=== PATIENT | male | born 1950 | race Caucasian/White ===

== ENCOUNTER 2017-11-08 09:52 | Day surgery (SDC) | payer MEDICARE, OTHER, SELFPAY ==
--- NOTE | 2017-11-08 | PATH_ITS ---
[facility] Accession Number: [id number] . 01 Material submitted: . LEFT COLON POLYP . 02 Diagnosis: Left Colon, Polyp, Biopsy: Tubulovillous adenoma. No evidence of malignancy or high-grade dysplasia. MRV/11/09/2017 . 02 Electronically signed: . Mecca Menon MD, Pathologist NPI- [id number] . 01 Gross description: . Received in one formalin-filled container labeled with the patient's name and labeled left colon polyp, are four less than 0.1 cm to 0.2 cm portions of tissue, entirely submitted in one cassette. ([id number]) /FRR . 02 Pathologist provided ICD-10: D12.6 . 02 CPT . 524798 Performed at: 01 [facility] [address] [id number] MD Clayton Fitzpatrick MD Phone: [phone] Performed at: 02 [facility] [id number] [place] [id number] MD Casey Hollins MD Phone: [phone]
[2017-11-08 10:29] VITALS: BMI 26.4
[2017-11-08 10:44] VITALS: BP 152/94; PULSE 71; RESP 16; TEMP 36.8; O2SAT 98
[2017-11-08] MEDS: SODIUM CHLORIDE 0.9% 1,000 ML 21 ML IV (10:48)
[2017-11-08] MEDS: fentaNYL 250 MCG/5 ML INJ IV (11:59)
[2017-11-08] MEDS: MIDAZOLAM 5 MG/5 ML VIAL IV (12:00)
--- NOTE | 2017-11-08 12:00 | PM.OP.ENDO ---
Operative Date/Time/Diagnoses Date of procedure: 11/08/17 Time of procedure: 12:00 Pre-op diagnosis: See indication Procedure & Clinicians Indications: Screening Surgeon: Deniz Cristobal Procedure Notes Procedure in detail: After informed consent was obtained the patient was placed in the left lateral decubitus position. The video colonoscope was introduced the rectum and slowly advanced to cecum. On slow withdrawal mucosa was carefully examined. The scope was removed. The patient tolerated the procedure well. Blood loss none Complications none Sedation Versed 6 mg, fentanyl 100 mcg IV titration sedation Total sedation time 15 min Findings 1. Extensive diverticulosis including on the right side though patchy in the mid portions of the colon. 2. Two sessile polyps seen in the left colon. There were 5-6 mm in size. Snare was used to resect both but the more proximal was lost in the colon. 3. Otherwise negative colonoscopy to cecum We will be in touch with patient regarding pathology but will need follow-up colonoscopy in 5 years.
[2017-11-08 12:17] VITALS: BP 156/89; PULSE 65; RESP 16; TEMP 36.8; O2SAT 94
--- NOTE | 2017-11-29 16:45 | PM.HP.1 ---
History of Present Illness Date Patient Seen: 11/08/17 Time Patient Seen: 07:45 Chief complaint: colonoscopy [id number] Narrative: Screening Patient History Medical History Hyperlipidemia (Acute) Osteoarthritis (Acute) Meds Home Medications Medication Instructions Recorded Confirmed Type amlodipine 5 mg PO DAILY 11/08/17 11/08/17 History atorvastatin [Lipitor] 40 mg PO DAILY 11/08/17 11/08/17 History dextroamphetamine 10 mg PO DAILY 11/08/17 11/08/17 History losartan 50 mg PO DAILY 11/08/17 11/08/17 History meloxicam 15 mg PO DAILY 11/08/17 11/08/17 History methotrexate sodium 15 mg PO QWEEK 11/08/17 11/08/17 History Allergies Allergy/AdvReac Type Severity Reaction Status Date / Time No Known Drug Allergies Allergy Verified 11/08/17 10:23 Exam Vital Signs (past 8 hours): Oxygen Delivery Method Room Air Narrative Exam Narrative: Oropharynx free of lesion Chest: Auscultation percussion Cardiac exam reveals no S3 or murmur Assessment & Plan Plan: Assessment/Plan Narrative: Plan is to perform colonoscopy. Risks, benefits, alternatives have been explained.
== END 2017-11-08 12:28 | disposition home or self-care (01) ==
PROVIDERS: Family Provider Internal Medicine; PCP Internal Medicine; Visit Provider Internal Medicine Gastroenterology
PROC: 0DJD8ZZ Inspection of Lower Intestinal Tract, Via Natural or Artificial Opening Endoscopic (ICD-10-PCS; CPT 45378; principal; 2017-11-08 11:00)
DX: Z12.11 Encounter for screening for malignant neoplasm of colon (principal); K57.30 Diverticulosis of large intestine without perforation or abscess without bleeding; D12.4 Benign neoplasm of descending colon
CPT/HCPCS: 45385; 88305; J2250; J3010

== ENCOUNTER → 2018-04-10 11:43 | Outpatient (CLI) | payer MEDICARE, OTHER, SELFPAY ==
[2018-04-10 12:39] LABS: Add Manual Diff / Slide Review NO; Basophils Percent Auto 0.2 % (0-2); Eosinophils Percent Auto 0.1 % (2-4); Hematocrit 47.8 % (41-53); Hemoglobin 16.1 g/dL (13.5-17.5); Lymphocytes Percent Auto 9.4 % (25-40); Mean Corpuscular HGB Conc 33.6 % (30-36); Mean Corpuscular Hemoglobin 28.8 PG (26-34); Mean Corpuscular Volume 85.8 fL (80-100); Monocytes Percent Auto 3.1 % (3-14); Neutrophils Absolute Auto 7700 /uL (1500-7000); Neutrophils Percent Auto 87.2 % (50-75); Platelet Count 209 X10^3/uL (150-400); Red Blood Cell Count 5.58 X10^6/uL (4.5-5.9); Red Cell Distribution Width 14.2 % (11.6-14.8); White Blood Cell Count 8.8 X10^3/uL (4.5-11.0)
[2018-04-10 12:54] LABS: Alanine Aminotransferase 50 IU/L (21-72); Albumin 4.9 g/dL (3.5-5.0); Alkaline Phosphatase 70 U/L (38-126); Aspartate Aminotransferase 32 IU/L (17-59); Bilirubin Total 0.9 mg/dL (0.2-1.3); Blood Urea Nitrogen 20 mg/dL (9-20); Carbon Dioxide 25 mmol/L (22-32); Chloride 102 mmol/L (98-107); Estimated Glomerular Filt Rate > 60.0 mL/min (>60); Glucose 124 mg/dL (80-110); HEMOLYSIS < 15 (0-50); Potassium 4.7 mmol/L (3.4-5.1); Sodium 140 mmol/L (137-145)
[2018-04-10 12:56] LABS: Albumin Globulin Ratio 1.6 (1.0-2.8); Globulin 3.1 g/dL (1.7-4.1)
== END ==
PROVIDERS: Family Provider Internal Medicine; PCP Internal Medicine; Visit Provider Physician Assistant
DX: L40.0 Psoriasis vulgaris (principal)
CPT/HCPCS: 36415; 80053; 85025

== ENCOUNTER → 2018-10-09 11:15 | Outpatient (CLI) | payer MEDICARE, OTHER, SELFPAY ==
[2018-10-09 12:30] LABS: Add Manual Diff / Slide Review NO; Basophils Absolute Auto 0 /uL (0-100); Basophils Percent Auto 0.8 % (0-2); Eosinophils Absolute Auto 300 /uL (0-450); Eosinophils Percent Auto 4.8 % (2-4); Hematocrit 44.1 % (41-53); Hemoglobin 14.7 g/dL (13.5-17.5); Lymphocytes Absolute Auto 1600 /uL (1100-4500); Lymphocytes Percent Auto 27.3 % (25-40); Mean Corpuscular HGB Conc 33.3 % (30-36); Mean Corpuscular Hemoglobin 28.3 PG (26-34); Monocytes Absolute Auto 600 /uL (0-900); Monocytes Percent Auto 10.4 % (3-14); Neutrophils Absolute Auto 3200 /uL (1500-7000); Neutrophils Percent Auto 56.7 % (50-75); Platelet Count 217 X10^3/uL (150-400); Red Blood Cell Count 5.19 X10^6/uL (4.5-5.9); Red Cell Distribution Width 14.7 % (11.6-14.8); White Blood Cell Count 5.7 X10^3/uL (4.5-11.0)
[2018-10-09 12:42] LABS: Alanine Aminotransferase 42 IU/L (21-72); Albumin 4.4 g/dL (3.5-5.0); Albumin Globulin Ratio 1.7 (1.0-2.8); Alkaline Phosphatase 69 U/L (38-126); Aspartate Aminotransferase 31 IU/L (17-59); BUN Creatinine Ratio 23.3 (6-22); Bilirubin Total 0.9 mg/dL (0.2-1.3); Blood Urea Nitrogen 21 mg/dL (9-20); Calcium 10.1 mg/dL (8.4-10.2); Carbon Dioxide 27 mmol/L (22-32); Chloride 105 mmol/L (98-107); Estimated Glomerular Filt Rate > 60.0 mL/min (>60); Globulin 2.6 g/dL (1.7-4.1); Glucose 87 mg/dL (80-110); HEMOLYSIS < 15 (0-50); Potassium 4.6 mmol/L (3.4-5.1); Sodium 142 mmol/L (137-145)
== END ==
PROVIDERS: PCP Internal Medicine; Visit Provider Physician Assistant
DX: L40.0 Psoriasis vulgaris (principal)
CPT/HCPCS: 36415; 80053; 85025

== ENCOUNTER → 2018-12-06 11:26 | Outpatient (CLI) | payer MEDICARE, OTHER, SELFPAY ==
[2018-12-06 12:31] LABS: HEMOLYSIS < 15 (0-50); Sodium 141 mmol/L (137-145)
[2018-12-06 12:33] LABS: Aspartate Aminotransferase 34 IU/L (17-59); BUN Creatinine Ratio 21.1 (6-22); Blood Urea Nitrogen 19 mg/dL (9-20); Calcium 10.3 mg/dL (8.4-10.2); Carbon Dioxide 29 mmol/L (22-32); Chloride 101 mmol/L (98-107); Cholesterol 152 mg/dL (140-199); Estimated Glomerular Filt Rate > 60.0 mL/min (>60); Glucose 92 mg/dL (80-110); HDL Cholesterol 58 mg/dL (40-60); LDL Cholesterol Calculated 76 mg/dL (<100); Potassium 4.1 mmol/L (3.4-5.1); Triglycerides 90 mg/dL (35-150)
== END ==
PROVIDERS: PCP Internal Medicine; Visit Provider Internal Medicine
DX: I10 Essential (primary) hypertension (principal); E78.2 Mixed hyperlipidemia
CPT/HCPCS: 36415; 80048; 80061; 84450

== ENCOUNTER → 2019-03-28 14:09 | Outpatient (CLI) | payer MEDICARE, OTHER, SELFPAY ==
[2019-03-28 14:37] LABS: Add Manual Diff / Slide Review NO; Basophils Absolute Auto 100 /uL (0-100); Basophils Percent Auto 0.9 % (0-2); Eosinophils Absolute Auto 200 /uL (0-450); Eosinophils Percent Auto 3.4 % (2-4); Hematocrit 44.7 % (41-53); Lymphocytes Absolute Auto 1400 /uL (1100-4500); Lymphocytes Percent Auto 22.2 % (25-40); Mean Corpuscular HGB Conc 33.6 % (30-36); Mean Corpuscular Hemoglobin 28.4 PG (26-34); Mean Corpuscular Volume 84.3 fL (80-100); Monocytes Absolute Auto 500 /uL (0-900); Monocytes Percent Auto 7.3 % (3-14); Neutrophils Absolute Auto 4200 /uL (1500-7000); Neutrophils Percent Auto 66.2 % (50-75); Platelet Count 203 X10^3/uL (150-400); Red Cell Distribution Width 15.6 % (11.6-14.8); White Blood Cell Count 6.3 X10^3/uL (4.5-11.0)
[2019-03-28 15:20] LABS: Alanine Aminotransferase 39 IU/L (<50); Albumin 4.6 g/dL (3.5-5.0); Albumin Globulin Ratio 1.7 (1.0-2.8); Alkaline Phosphatase 77 U/L (38-126); Aspartate Aminotransferase 37 IU/L (17-59); Blood Urea Nitrogen 20 mg/dL (9-20); Calcium 10.3 mg/dL (8.4-10.2); Carbon Dioxide 26 mmol/L (22-32); Chloride 104 mmol/L (98-107); Estimated Glomerular Filt Rate > 60.0 mL/min (>60); Globulin 2.7 g/dL (1.7-4.1); Glucose 86 mg/dL (80-110); HEMOLYSIS < 15 (0-50); Potassium 4.3 mmol/L (3.4-5.1); Sodium 139 mmol/L (137-145); Total Protein 7.3 g/dL (6.3-8.2)
[2019-03-31 12:13] LABS: Mitogen-NIL > 10.00 IU/mL; NIL 0.03 IU/mL; QuantiFERON TB NEGATIVE (Negative); TB1-NIL < 0.01 IU/mL; TB2-NIL < 0.01 IU/mL
== END ==
PROVIDERS: PCP Internal Medicine; Visit Provider Physician Assistant
DX: L40.0 Psoriasis vulgaris (principal)
CPT/HCPCS: 36415; 80053; 85025; 86480

== ENCOUNTER → 2019-06-12 17:08 | Outpatient (ROUT) | payer MEDICARE, OTHER, SELFPAY ==
[2019-06-12 18:10] LABS: Aspartate Aminotransferase 30 IU/L (17-59); BUN Creatinine Ratio 21.8 (6-22); Blood Urea Nitrogen 19 mg/dL (9-20); Carbon Dioxide 28 mmol/L (22-32); Chloride 105 mmol/L (98-107); Cholesterol 167 mg/dL (140-199); Estimated Glomerular Filt Rate > 60.0 mL/min (>60); Glucose 100 mg/dL (80-110); HDL Cholesterol 61 mg/dL (40-60); HEMOLYSIS < 15 (0-50); LDL Cholesterol Calculated 87 mg/dL (<100); Potassium 4.4 mmol/L (3.4-5.1); Sodium 141 mmol/L (137-145); Triglycerides 96 mg/dL (35-150)
[2019-06-12 18:40] LABS: Prostate Specific Antigen 1.75 ng/mL (0.10-4.00)
== END ==
PROVIDERS: PCP Internal Medicine; Visit Provider Internal Medicine
DX: E78.2 Mixed hyperlipidemia (principal); I10 Essential (primary) hypertension; N40.1 Benign prostatic hyperplasia with lower urinary tract symptoms
CPT/HCPCS: 80048; 80061; 84153; 84450

== ENCOUNTER → 2019-12-19 12:52 | Outpatient (CLI) | payer MEDICARE, OTHER, SELFPAY ==
[2019-12-19 14:05] LABS: Add Manual Diff / Slide Review NO; Basophils Absolute Auto 100 /uL (0-100); Basophils Percent Auto 0.8 % (0-2); Eosinophils Absolute Auto 200 /uL (0-450); Eosinophils Percent Auto 2.8 % (2-4); Hematocrit 43.1 % (41-53); Hemoglobin 14.3 g/dL (13.5-17.5); Lymphocytes Absolute Auto 1400 /uL (1100-4500); Lymphocytes Percent Auto 21.8 % (25-40); Mean Corpuscular HGB Conc 33.2 % (30-36); Mean Corpuscular Hemoglobin 28.5 PG (26-34); Mean Corpuscular Volume 85.9 fL (80-100); Monocytes Absolute Auto 500 /uL (0-900); Monocytes Percent Auto 8.2 % (3-14); Neutrophils Absolute Auto 4400 /uL (1500-7000); Neutrophils Percent Auto 66.4 % (50-75); Platelet Count 234 X10^3/uL (150-400); Red Blood Cell Count 5.02 X10^6/uL (4.5-5.9); Red Cell Distribution Width 15.3 % (11.6-14.8); White Blood Cell Count 6.6 X10^3/uL (4.5-11.0)
[2019-12-19 15:56] LABS: Alanine Aminotransferase 27 IU/L (<50); Albumin Globulin Ratio 1.4 (1.0-2.8); Alkaline Phosphatase 96 U/L (38-126); Aspartate Aminotransferase 29 IU/L (17-59); BUN Creatinine Ratio 18.4 (6-22); Bilirubin Unconjugated 0.6 mg/dL (0.0-1.1); Blood Urea Nitrogen 16 mg/dL (9-20); Calcium 9.6 mg/dL (8.4-10.2); Carbon Dioxide 28 mmol/L (22-32); Chloride 103 mmol/L (98-107); Estimated Glomerular Filt Rate > 60.0 mL/min (>60); Globulin 2.9 g/dL (1.7-4.1); Glucose 88 mg/dL (80-110); HEMOLYSIS < 15 (0-50); Potassium 4.2 mmol/L (3.4-5.1); Sodium 139 mmol/L (137-145); Total Protein 6.9 g/dL (6.3-8.2)
== END ==
PROVIDERS: PCP Internal Medicine; Referring Provider Physician Assistant; Visit Provider Physician Assistant
DX: L40.0 Psoriasis vulgaris (principal)
CPT/HCPCS: 36415; 80053; 80076; 85025

== ENCOUNTER → 2020-01-17 12:37 | Outpatient (CLI) | payer MEDICARE, OTHER, SELFPAY ==
--- NOTE | 2020-01-17 | DI.MRI.S_ITS ---
PROCEDURE: MR LUMBAR SPINE WO CON INDICATIONS: Low back pain TECHNIQUE: Noncontrast sagittal T1 spin echo and T2 fast echo, coronal T2, sagittal STIR, axial T1 and T2 fast spin echo through the lumbar spine. COMPARISON: [facility], CR, XR LUMBAR SPINE 2 OR 3VW, 10/06/2015, 15:43. FINDINGS: Image quality: Excellent. Alignment and Curvature: 5 lumbar type vertebral bodies are present by plain film. There is loss of normal lumbar lordosis. Mild grade 1 retrolisthesis of L1 on L2, L2 on L3, L4 on L5, and L5 on S1. Mild rightward curvature of the mid lumbar spine. Bone Marrow: Marrow is of normal overall signal. No acute vertebral body compression fractures. Moderate reactive signal within the endplates adjacent to the L2-L3 and L4-L5 intervertebral discs. Mild reactive signal within the endplates adjacent to the L1-L2, L3-L4, and L5-S1 intervertebral discs, as well as the intervertebral discs of the lower thoracic spine. L3-L4 laminectomy. Spinal Cord: Conus medullaris terminates at the L1-L2 disc space level. Visualized cord demonstrates normal signal and size. Paraspinous Soft Tissues: No paravertebral masses. L1-L2: Congenital canal stenosis. Severe disc height loss and desiccation. Mild diffuse disc bulge. Mild facet and ligamentum flavum hypertrophy. Moderate canal stenosis. Mild right and moderate left subarticular foraminal stenosis. L2-L3: Congenital canal stenosis. Severe disc height loss and desiccation. Moderate diffuse disc bulge/osteophyte. Moderate facet hypertrophy. Severe canal stenosis. Moderate foraminal stenosis bilaterally. L3-L4: Congenital canal stenosis. Severe disc height loss and desiccation. Mild diffuse disc bulge/osteophyte. Moderate facet hypertrophy and mild ligamentum flavum hypertrophy bilaterally. Epidural lipomatosis. Severe canal stenosis. Moderate bilateral foraminal stenosis. L4-L5: Congenital canal stenosis. Severe disc height loss and desiccation. Moderate diffuse disc bulge/osteophyte. Moderate facet and ligamentum flavum hypertrophy. Severe canal stenosis. Moderate bilateral foraminal stenosis. L5-S1: Severe disc height loss and desiccation. Mild facet and ligamentum flavum hypertrophy. Mild diffuse disc bulge with superimposed left greater than right far lateral protrusions. Mild ligamentum flavum hypertrophy. Mild canal stenosis. Severe bilateral foraminal stenosis with bilateral L5 nerve root compression. IMPRESSION: 1. Postsurgical sequelae. 2. Diffuse congenital canal stenosis with superimposed multilevel degenerative disc and facet disease, as well as ligamentum flavum hypertrophy and epidural lipomatosis. 3. Multilevel canal stenosis, worst at L2-L3, L3-L4, and L4-L5, where there are severe canal stenosis. 4. Multilevel foraminal stenosis, worst at L5-S1 where there is associated L5 nerve root compression. Dictated by: Regan Amin M.D. on 01/17/2020 at 13:57 Approved by: Regan Amin M.D. on 01/17/2020 at 14:06
== END ==
PROVIDERS: PCP Internal Medicine; Referring Provider Orthopaedic Surgery; Visit Provider Orthopaedic Surgery
DX: M54.5 Low back pain (principal); M48.061 Spinal stenosis, lumbar region without neurogenic claudication; M48.07 Spinal stenosis, lumbosacral region; M51.36 Other intervertebral disc degeneration, lumbar region; M51.37 Other intervertebral disc degeneration, lumbosacral region; E88.2 Lipomatosis, not elsewhere classified
CPT/HCPCS: 72148

== ENCOUNTER → 2020-03-03 13:26 | Outpatient (CLI) | payer MEDICARE, OTHER, SELFPAY ==
[2020-03-03 13:36] LABS: WBC Urine None Seen (0-5/HPF)
[2020-03-03 14:56] LABS: Add Manual Diff / Slide Review NO; Basophils Absolute Auto 100 /uL (0-100); Basophils Percent Auto 0.8 % (0-2); Eosinophils Absolute Auto 200 /uL (0-450); Eosinophils Percent Auto 2.1 % (2-4); Hematocrit 43.6 % (41-53); Hemoglobin 14.2 g/dL (13.5-17.5); Lymphocytes Absolute Auto 1400 /uL (1100-4500); Lymphocytes Percent Auto 16.5 % (25-40); Mean Corpuscular HGB Conc 32.6 % (30-36); Mean Corpuscular Hemoglobin 28.4 PG (26-34); Monocytes Absolute Auto 700 /uL (0-900); Monocytes Percent Auto 8.7 % (3-14); Neutrophils Absolute Auto 5900 /uL (1500-7000); Neutrophils Percent Auto 71.9 % (50-75); Platelet Count 237 X10^3/uL (150-400); Red Blood Cell Count 5.01 X10^6/uL (4.5-5.9); Red Cell Distribution Width 14.3 % (11.6-14.8); White Blood Cell Count 8.2 X10^3/uL (4.5-11.0)
[2020-03-03 15:56] LABS: Appearance Urine UA CLEAR; Bilirubin Urine UA NEGATIVE (NEGATIVE); Color Urine UA YELLOW; Glucose Urine UA NEGATIVE (Negative); Ketones Urine UA NEGATIVE (NEGATIVE); Leukocyte Esterase Urine UA NEGATIVE (NEGATIVE); Nitrite Urine UA NEGATIVE (Negative); Occult Blood Urine UA NEGATIVE (Negative); Protein Urine UA NEGATIVE (Negative); Specific Gravity Urine UA 1.025 (1.000-1.035); Urobilinogen Urine UA 0.2 E.U./dL (0.2)
[2020-03-03 16:00] LABS: BUN Creatinine Ratio 19.7 (6-22); Blood Urea Nitrogen 15 mg/dL (9-20); Calcium 9.3 mg/dL (8.4-10.2); Carbon Dioxide 29 mmol/L (22-32); Chloride 104 mmol/L (98-107); Estimated Glomerular Filt Rate > 60.0 mL/min (>60); Glucose 87 mg/dL (80-110); HEMOLYSIS < 15 (0-50); Potassium 4.4 mmol/L (3.4-5.1); Sodium 139 mmol/L (137-145)
[2020-03-03 17:17] LABS: Bacteria Urine Occasional (0-1); Culture Indicated Urine Cult Not Indicated; RBC Urine 0-1/HPF (0-5/HPF)
== END ==
PROVIDERS: PCP Internal Medicine; Referring Provider Orthopaedic Surgery Orthopaedic Surgery of the Spine; Visit Provider Orthopaedic Surgery Orthopaedic Surgery of the Spine
DX: Z01.812 Encounter for preprocedural laboratory examination (principal); N39.0 Urinary tract infection, site not specified
CPT/HCPCS: 36415; 80048; 81001; 85025

== ENCOUNTER → 2020-03-11 13:24 | Outpatient (CLI) | payer MEDICARE, OTHER, SELFPAY ==
[2020-03-11 16:12] LABS: COVID19 -Nasal RAPID Negative (Negative)
== END ==
PROVIDERS: PCP Internal Medicine; Visit Provider Physician Assistant
DX: Z11.59 Encounter for screening for other viral diseases (principal)
CPT/HCPCS: 87635

== ENCOUNTER → 2020-03-30 12:35 | Outpatient (CLI) | payer MEDICARE, OTHER, SELFPAY ==
[2020-03-30 14:24] LABS: Add Manual Diff / Slide Review NO; Basophils Absolute Auto 0 /uL (0-100); Basophils Percent Auto 0.6 % (0-2); Eosinophils Absolute Auto 200 /uL (0-450); Eosinophils Percent Auto 3.1 % (2-4); Hematocrit 44.7 % (41-53); Hemoglobin 14.5 g/dL (13.5-17.5); Lymphocytes Absolute Auto 1600 /uL (1100-4500); Lymphocytes Percent Auto 21.9 % (25-40); Mean Corpuscular HGB Conc 32.4 % (30-36); Mean Corpuscular Hemoglobin 27.9 PG (26-34); Mean Corpuscular Volume 85.9 fL (80-100); Monocytes Absolute Auto 700 /uL (0-900); Monocytes Percent Auto 8.9 % (3-14); Neutrophils Absolute Auto 4900 /uL (1500-7000); Neutrophils Percent Auto 65.5 % (50-75); Platelet Count 258 X10^3/uL (150-400); Red Cell Distribution Width 14.3 % (11.6-14.8); White Blood Cell Count 7.4 X10^3/uL (4.5-11.0)
[2020-03-30 14:37] LABS: Alanine Aminotransferase 24 IU/L (<50); Albumin 4.6 g/dL (3.5-5.0); Albumin Globulin Ratio 1.5 (1.0-2.8); Alkaline Phosphatase 81 U/L (38-126); Aspartate Aminotransferase 27 IU/L (17-59); Bilirubin Total 0.5 mg/dL (0.2-1.3); Bilirubin Unconjugated 0.4 mg/dL (0.0-1.1); Globulin 3.1 g/dL (1.7-4.1); HEMOLYSIS < 15 (0-50); Total Protein 7.7 g/dL (6.3-8.2)
== END ==
PROVIDERS: PCP Internal Medicine; Referring Provider Physician Assistant; Visit Provider Physician Assistant
DX: L40.0 Psoriasis vulgaris (principal)
CPT/HCPCS: 36415; 80076; 85025

== ENCOUNTER → 2020-04-20 11:05 | Outpatient (CLI) | payer MEDICARE, OTHER, SELFPAY ==
[2020-04-20 12:27] LABS: COVID19 -Nasal RAPID Negative (Negative)
== END ==
PROVIDERS: PCP Internal Medicine; Visit Provider Physician Assistant
DX: Z20.822 Contact with and (suspected) exposure to COVID-19 (principal)
CPT/HCPCS: 87635

== ENCOUNTER 2020-04-22 07:38 | Inpatient (IN) | payer MEDICARE, OTHER, SELFPAY ==
[2020-03-10 09:34] VITALS: BMI 26.4
[2020-04-22] VITALS (25 sets, daily range): BP systolic 112–149; BP diastolic 70–92; PULSE 65–87; RESP 8–18; TEMP 35.9–37.1; O2SAT 93–99; BMI 25.4
--- NOTE | 2020-04-22 08:00 | DI.RAD.S_ITS ---
PROCEDURE: XR LUMBAR SPINE 2-3V INDICATIONS: L3-4, L4-5, L5-S1 TLIF TECHNIQUE: 2 operative views of the lumbar spine were acquired. COMPARISON: None. FINDINGS: AP and lateral operative fluoroscopic images demonstrate posterior lateral chip and pedicle screw fixation at L3 through S1 with interbody cage material placed at these levels. There is no radiographic evidence of complications. IMPRESSION: Operative imaging utilized during lumbar fusion surgery. No radiographic evidence of complications. Dictated by: Hank Elder M.D. on 04/22/2020 at 15:47 Approved by: Hank Elder M.D. on 04/22/2020 at 15:48
[2020-04-22] MEDS: LACTATED RINGERS 1,000 ML 42 ML IV ×3 (08:06→13:52)
--- NOTE | 2020-04-22 08:36 | PM.PREOP ---
Pre-operative Note COVID-19 COVID-19 status: Negative Result date/Date tested (Pos, Neg/Pending): 04/20/20 Interval Note History & Physical reviewed/Exam performed by Physician: Yes Changes to H&P: No
[2020-04-22] MEDS: CEFAZOLIN 2 GM/100 ML FROZ.PIGGY IV ×2 (08:58→19:29)
--- NOTE | 2020-04-22 09:32 | SUR.OPER ---
Prone on spine table, head in foam head support, padded chest and pelvic supports, gel pad at knees, lower legs supported by pillows; nipples, genitalia and toes free of pressure, arms secured on foam padded arm boards at <90 degrees abduction. Tape over blanket at thigh secured to table.
[2020-04-22] MEDS: BUPIVACAINE LIPOSOME 266 MG/20 ML VIAL INJ (14:55)
[2020-04-22] MEDS: BUPIVACAINE 0.25% W/ EPI (PF) 10 ML VIAL 20 ML INJ (14:55)
--- NOTE | 2020-04-22 14:58 | PM.OP.1 ---
Operative Date/Time/Diagnoses Date of procedure: 04/22/20 Time of procedure: 08:50 Pre-op diagnosis: 1. L2-3, L3-4, L4-5, L5-S1 spinal stenosis 2. Hx of laminectomy with post laminectomy syndrome 3. Spondylosis with radiculopathy L2-S1 Post-op diagnosis: same Procedure & Clinicians Procedure: 1. L3-4, L4-5, L5-S1 Postero-lateral and posterior interbody fusion 2. L3-4, L4-5, L5-S1 interbody cage placement. 3. L3-4, L4-5, L5-S1 decompressive laminectomy with bilateral facetecomies 4. L3-4, L4-5, L5-S1 Posterior segmental instrumentation 5. L2-3 right hemilaminectomy with partial facetectomy 6. [place] of bone marrow from iliac crest 7. Utilization of microsurgical technique and operating microscope Same procedure as scheduled: Yes Indications: Patient has been having chronic back pain and worsening lumbar radiculopathy. Patient had previous decompression surgery with temper relief of his radicular symptoms. Patient has been having worsening back pain and lower extremity pain weakness and numbness. Patient failed multiple conservative management with worsening pain weakness and numbness in her lower extremity. Patient has been having difficulty performing activity of daily living. After discussing risks benefits of treatment options, patient elected proceed with surgery. Surgeon: Juan M Garvey Consumer Marketing Analyst: Geovanna Akers Click Yes if Unassisted: No Anesthesia Type: General Operative Notes Closure Type: primary Specimen(s): none sent Prosthetic devices, grafts, tissues, transplants, or devices: Globus revolve screws, Rise cages Applied: catheter Estimated Blood Loss (mL): 350 Blood products transfused: none Procedure in detail: Patient was seen in the preoperative area. Risks and benefits of the surgery was discussed with the patient. Informed consent was obtained from the patient and placed in the chart. Surgical site was marked. Patient was taken to the operative room. General anesthesia was administered. Prophylactic antibiotic was given to the patient less than 30 min before the incision was made. Patient was placed into a prone position on the Devyn table. Patient's back was then prepped and draped in the sterile fashion. Time-out was performed at this time. Using AP and lateral C-arm imaging the interval between L2-S1 was identified and marked on patient's back. A 3 inch incision 2 in from midline was made on the right side first. The fascia was incised in line with skin incision. Globus MARS retractors was placed inside the incision and docked onto the L3, L4 and L5 lamina. Using microsurgical technique and operating microscope, a L3, L4 and L5 laminectomy and L3-4, L4-5 L5-S1 facetectomy was performed using a Kerrison rongeur. During the process of decompression more than 75% of bilateral L3-4 L4-5 L5-S1 facets were removed in order to decompress the spinal canal and the lateral recess. The L3-4 L4-5 L5-S1 level was grossly unstable after the decompression was completed and requiring the fusion procedure. The disc space at L3-4 L4-5, L5-S1 was identified. And a total diskectomy was performed at L3-4 L4-5, L5-S1 level. The endplates were decorticated using a rasp and shaver. The total diskectomy and decortication was performed at L3-4 L4-5, L5-S1 level in order to to accomplish a L3-4 L4-5, L5-S1 fusion. The local bone from the laminectomy and facetectomy was saved for local bone grafting. After the total diskectomy and decortication was completed, Trifecta bone graft material was combined with local bone that was harvested earlier. At this time, a separate skin is incision was made over the iliac crest. A Jamshidi needle was inserted into the iliac crest through a separate skin incision. 5 cc of bone marrow aspiration was obtained through the separate skin incision using a Jamshidi needle from the iliac crest. The bone marrow aspiration was combined with local bone and the Trifecta bone grafting material. The bone grafting material was placed into the L3-4 L4-5, L5-S1 interbody space along with three cages, one expandable cage at each level. The cages were expanded to their maximum height using the torque limiting screwdriver. The MARS retractor was then redirected over the L2-3 level. Using the micro surgical technique and operative microscope a L2 a hemilaminectomy was performed. Kerrison rongeur was used to undercut the facet to further decompress the lateral recess. The neural foramen was palpated and was patent once decompression was completed. At this time a mirror image incision was made on the left side. The fascia was incised in line with the skin incision. Globus MARS retractor was inserted and docked onto the L3-4, L4-5, L5-S1 posterolateral gutter. Using the power drill, posterior-lateral decortication was performed at L3-4 L4-5, L5-S1 level until bleeding cortical bone was identified. The remaining bone grafting material was placed into the L3-4 L4-5 L5-S1 posterior lateral gutter he order to accomplish posterolateral fusion at the L3-4 L4-5 L5-S1 levels. Using the double C-arm technique, pedicle screws were placed into the L3, L4, L5, S1 pedicles bilaterally. This was done by placing the Jamshidi needle into the pedicles, then placing the guidewires over the Jamshidi needle, and finally placing the cannulated screws over the guidewires bilaterally. After the pedicle screws were placed, 2 titanium rods was locked into the heads of the pedicle screws using locking caps and torque limiting screwdriver. Total 6 pedicles screws were placed. After all the hardware was placed, and confirmed with AP and lateral C-arm imaging, the wound was then irrigated with sterile normal saline and packed with Ray-Elton gauze for 3 min to accomplish hemostasis. After the gauze was removed the deep fascia was closed with #1 Vicryl suture. The subcutaneous layer was closed with 2-0 Vicryl. The skin was closed with skin matty. Patient tolerated the procedure well. There were no complications. Complications: none Post-operative Condition: stable Disposition: PACU Plan for aftercare: Admit to inpatient hospital
[2020-04-22] MEDS: fentaNYL 100 MCG/2 ML INJ IV ×2 (16:00→16:10)
[2020-04-22] MEDS: HYDROMORPHONE 2 MG INJ IV ×3 (16:40→17:07)
[2020-04-22] MEDS: OXYCODONE IR 5 MG TABLET PO ×2 (16:44→17:23)
--- NOTE | 2020-04-22 17:14 | SUR.PHASEI ---
1700 report received from Tha David RN and care assumed from [id number].
[2020-04-22] MEDS: ACETAMINOPHEN 325 MG TABLET 975 MG PO (17:36)
--- NOTE | 2020-04-22 17:36 | SUR.PHASEI ---
Report called to NIKUNJ Dey. Pt stable joint care with nikunj brown now. will transport pt upstairs to room
[2020-04-22] MEDS: hydrOXYzine pamoate 25 MG CAPSULE PO ×2 (18:11→22:37)
[2020-04-22] MEDS: SODIUM CHLORIDE 0.9% 1,000 ML 100 ML IV (18:11)
[2020-04-22] MEDS: SENNOSIDES 8.6 MG TABLET 17.2 MG PO (20:40)
[2020-04-22] MEDS: DOXYCYCLINE HYCLATE 100 MG TABLET PO (20:41)
[2020-04-22] MEDS: DOCUSATE 100 MG CAPSULE PO (20:41)
[2020-04-22] MEDS: OXYCODONE IR 10 MG TABLET PO ×2 (20:41→23:43)
[2020-04-22] MEDS: HYDROMORPHONE 0.5 MG INJ IV (21:15)
[2020-04-23] VITALS (8 sets, daily range): BP systolic 111–146; BP diastolic 56–82; PULSE 67–83; RESP 16–18; TEMP 36.1–37.3; O2SAT 93–97
--- NOTE | 2020-04-23 00:41 | PC.NURSE ---
3691 patient seen and assessed. Is alert and oriented. Breath sounds CTA with RA sat of 94%. HRR. BP trending 130-140's since return from surgery. Denies nausea. BT present but denies flatus. Indwelling catheter is patent; urine is clear yellow. Is able to turn but staff assisted to place pillows. Complains of 9/10 dull achy pain and was medicated with Oxycodone and ice pack applied and patient now appears to be asleep with a FLACC of 0. Dressing to back was reinforced on previous shift and is currently CDI. CMS intact bilaterally. Wearing bilateral foot SCD's. Gait not assessed as has not yet been out of bed. Fall risk score is moderate; bed alarm is activated. CIWA score is 0. Seizure pads on bed.
[2020-04-23] MEDS: CEFAZOLIN 2 GM/100 ML FROZ.PIGGY IV (02:10)
[2020-04-23] MEDS: SODIUM CHLORIDE 0.9% 1,000 ML 100 ML IV (05:05)
[2020-04-23 05:19] LABS: Hematocrit 37.2 % (41-53); Hemoglobin 12.2 g/dL (13.5-17.5)
--- NOTE | 2020-04-23 08:00 | PM.PN.1 ---
Subjective Subjective Date Patient Seen: 04/23/20 Time Patient Seen: 08:00 Interval history: Patient is POD#1 s/p L2-3 hemilaminectomy and L3-S1 TLIF with Dr. Garvey. Pain has been moderate to severe but improves with Oxycodone. He has not mobilized out of bed. Roland catheter in place. Complaining of cramping in the right buttock as well as right sided decreased sensation in the posterior thigh. No chest pain, shortness of breath, nausea or vomiting. No other complaints. Exam Vital Signs (past 8 hours): - 04/23/20 04:56 Temperature 97.0 F L Pulse Rate 74 Respiratory Rate 16 Blood Pressure 132/73 Pulse Oximetry 93 Oxygen Delivery Method Room Air Oxygen Flow Rate 0 Narrative Exam Narrative: 69 year old male resting in bed, alert and oriented in no acute distress. Dressing in place was reinforced overnight with abd pad, some breakthrough drainage. 5/5 BLE. Decreased sensation in right posterior thigh. Calves are soft, nontender. Objective Labs Result Diagrams: 04/23/20 05:00 Labs: Laboratory Results - last 24 hr 04/23/20 05:00 Hgb 12.2 L Hct 37.2 L PFSH Medical History Acid reflux Arthritis Hearing impaired History of Mohs micrographic surgery for skin cancer (2019) HTN (hypertension) Hx of Prinzmetal angina (~1999) Hyperlipidemia Osteoarthritis Post-nasal drip Postlaminectomy syndrome Postlaminectomy syndrome, not elsewhere classified Psoriasis Sciatica Spinal stenosis Spinal stenosis, lumbar region without neurogenic claudication Spondylolisthesis, lumbar region Surgical History History of back surgery (~2002) History of eye surgery History of phacoemulsification of cataract of left eye with intraocular lens implantation History of surgery (10/2019) Hx of laminectomy (~2008) Hx of parotidectomy (1960) Hx of tonsillectomy S/P excision of lipoma (05/2016) Social History household members: spouse Smoking Status: Former smoker alcohol intake: current Assessment & Plan Assessment & Plan narrative: -POD# 1 s/p L2-3 hemilaminectomy and L3-S1 TLIF. Patient progressing as expected. -Vistaril increased to 50mg due to patient complaints of spasms. If no improvement with this will change to Valium 5mg. Will give one time dose of Dexamethasone 10mg due to his radicular symptoms. Also added Dialudid 4mg Q3hrs for improved pain control, though will try to keep on a schedule with Oxycodone 10mg Q3h to see if this is adequate before starting this. -Encouraged patient to mobilized with PT today. Roland will remain in place until he is mobilizing a bit better. -DVT prophylaxis with SCDs. -Anticipate discharge in 1-3 days. Quality VTE Deep Vein Thrombosis/Pulmonary Embolism Present on Admission: No
--- NOTE | 2020-04-23 08:10 | PC.NURSE ---
Patient c/o pain to low back and reports muscle cramps and numbness to right posterior thigh. Patient able to lift both lower extremities off the bed, PPP. Grace SYED aware of patients c/o of pain and numbness to right thigh, new orders received. Dressing to back with shadow drainage, orders to change.
[2020-04-23] MEDS: ATORVASTATIN 20 MG TABLET 40 MG PO (08:26)
[2020-04-23] MEDS: DEXAMETHASONE 10 MG/ML VIAL IV (08:26)
[2020-04-23] MEDS: DOCUSATE 100 MG CAPSULE PO ×2 (08:26→21:28)
[2020-04-23] MEDS: OXYCODONE IR 10 MG TABLET PO ×4 (08:26→21:29)
[2020-04-23] MEDS: SODIUM CHLORIDE 0.9% FLUSH 10 ML IV ×2 (09:13→21:30)
[2020-04-23] MEDS: FOLIC ACID 1 MG TABLET PO (09:14)
[2020-04-23] MEDS: DOXYCYCLINE HYCLATE 100 MG TABLET PO (09:14)
[2020-04-23] MEDS: ACETAMINOPHEN 325 MG TABLET 650 MG PO ×2 (10:40→17:30)
[2020-04-23] MEDS: hydrOXYzine pamoate 25 MG CAPSULE 50 MG PO ×3 (10:40→21:29)
--- NOTE | 2020-04-23 11:40 | PT.IIE ---
Current Diagnoses Spondylolisthesis, lumbar region (04/22/20) Spinal stenosis, lumbar region without neurogenic claudication (04/22/20) Postlaminectomy syndrome, not elsewhere classified (04/22/20) Surgery Performed Operation Date: 04/22/20 08:45 Actual Procedures p L2-3 left hemilaminectomy, L3-4, L4-5, L5-S1 TLIF w/ posterior instrumentation - Juan M Garvey MD Surgical History (Last Reviewed 04/23/20 @ 10:47 by Grace Easley PA-C) History of back surgery (~2002) History of eye surgery History of phacoemulsification of cataract of left eye with intraocular lens implantation History of surgery (10/2019) Hx of laminectomy (~2008) Hx of parotidectomy (1960) Hx of tonsillectomy S/P excision of lipoma (05/2016) Medical History (Last Reviewed 04/23/20 @ 10:47 by Grace Easley PA-C) Acid reflux Arthritis Hearing impaired History of Mohs micrographic surgery for skin cancer (2019) HTN (hypertension) Hx of Prinzmetal angina (~1999) Hyperlipidemia Osteoarthritis Post-nasal drip Postlaminectomy syndrome Postlaminectomy syndrome, not elsewhere classified Psoriasis Sciatica Spinal stenosis Spinal stenosis, lumbar region without neurogenic claudication Spondylolisthesis, lumbar region Physical Therapy Inpatient Evaluation/Re-Eval M1 PT/OT-IP Prior Functional Status Start: 04/23/20 08:23 Freq: NEEDED Status: Active Protocol: Document 04/23/20 11:36 AW (Rec: 04/23/20 12:00 AW [id number]) Medical Review Prior Functional Status Medical History Reviewed Yes Communication WNL Mobility and Gait Independent ambulation but with limited standing tolerance due to stenosis. Pt reports ability to stand ~10 minutes. Activities of Daily Living and IADL's Slow but independent with ADL' s. 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 Prior Functional Level (Other details) Pt had L1-5 lami ~10 years ago Social History Household Members spouse Living Arrangements House Number of Floors (Floors) Two Floors Number of Stairs To Enter/Railing? No stairs at front entrance. 3 [address] with R rail ascending through the garage. 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 He lives with his , Chantell, who used to be an RN and now works as an assistant city attorney. She will be available to assist the pt at discharge. M2 PT-IP Current Condition Start: 04/23/20 08:23 Freq: NEEDED Status: Active Protocol: Document 04/23/20 11:36 AW (Rec: 04/23/20 13:16 AW [id number]) Physical Therapy Current Condition Current Condition Evaluation Date 04/23/20 Treatment Diagnosis L3-S1 TLIF, L2-3 hemilami; difficulty in walking Onset Date 04/22/20 Precautions Lumbar Precautions Log Roll,No Twisting,Limit Bending,Lifting Restriction of 10 lbs,Gait Belt above Incisional Area M3 PT-IP Subjective Start: 04/23/20 08:23 Freq: NEEDED Status: Active Protocol: Document 04/23/20 11:36 AW (Rec: 04/23/20 13:16 AW [id number]) Subjective Physical Therapy Visit Type Type Initial Evaluation Visit Start Time 10:58 Visit Stop Time 11:36 Total Visit Minutes 38 Number of MAINTENANCE MANAGER Visits 0 Physical Therapy Visit Comments Patient Comments Pt has not been OOB yet but is willing to participate with PT Patient Goals Return home with spouse assist Therapy Pain Assessment Pain When Pain Assessed During Mobility Pain Present Pain Present Pain Reported Location Back Intensity 8 Scale Used unchanged from at rest Pain Management Techniques Re-positioning,Timing of Activity with Medications M4 PT-IP Mobility and Gait Start: 04/23/20 08:23 Freq: NEEDED Status: Active Protocol: Document 04/23/20 11:36 AW (Rec: 04/23/20 13:16 AW [id number]) PT-Bed Mobility Assessment Rolling Type of Rolling Log Rolling,Roll to Left Level of Assist Minimal Assistance,1 Person Assistance Supine to Sit Supine to Sit Moderate Assistance,1 Person Assistance Scooting Scooting to Edge of Bed Standby Assistance PT-Transfer Assessment Sit to and From Stand Sit to and from Stand Moderate Assistance,1 Person Assistance,Use of Upper Extremities Equipment Transfer Assistive Device Gait Belt,Front Wheeled Walker Orthotic/Prosthetic Devices or Brace: No Transfers Transfer Destination Chair Transfer Technique Stand Step Pivot Transfer Ability Level of Assist Minimal Assistance,1 Person Assistance,Use of Upper Extremities Comments Mobility Comments Pt was reclined in the bed as PT arrived. BP was 131/72 HR 75 in supine. Pt log rolled to his left side min A x 1 and cues and then needed mod A x 1 for SL to sit transition. He scooted himself toward EOB SBA and sat several minutes as RN changed his dressing. BP in sitting was 142/82 HR 77. Pt stood from the bed mod A x 1 with cues for quad activation. He stood with FWW and was able to shift weight with fairly heavy UE weightbearing. Pt complained of mild shoulder pain but did not interfere with his safety. He required min assist for balance as he used his hands to don a face mask. With FWW and CGA, pt ambulated ~50 feet , returning to the room and transferring to the chair min A x 1 for assist with poorly controlled descent. Pt was positioned with call light and all needs in reach. PT notified RN of possible need for chair alarm as pt was somewhat groggy and confused. Gait Assessment Gait Gait Assistance Required: Contact Guard Assist Distance (Feet) 50 Able to Maintain Weight Bearing Status Yes During Gait Assistive Devices Assistive Device Gait Belt,Front Wheeled Walker Orthotic/Prosthetic Devices or Brace: No Gait Deviations General Gait Pattern Antalgic,Decreased Stride Length,Decreased Feet Clearance,Flexed Trunk,Narrow Based Gait,Step-to Gait Factors Limiting Gait Function Factors Limiting Gait Function Decreased Activity Tolerance, Decreased Sensation,Decreased Strength,Limited Range of Motion,Pain,Poor Balance,Poor Safety Awareness Comments Gait Comments Gait was slow and halting with limited RLE weightbearing. Stair Climbing Assessment Comments Stair Climbing Comments Not assessed. PT-Balance Assessment Sitting Balance and Reactions Static Sitting Balance Ability Good Dynamic Sitting Balance Ability Good Standing Balance and Reactions Static Standing Balance Ability Good Dynamic Standing Balance Ability Fair Device Used FWW M5 PT-IP Objective Assessments Start: 04/23/20 08:23 Freq: NEEDED Status: Active Protocol: Document 04/23/20 11:36 AW (Rec: 04/23/20 13:16 AW [id number]) Orientation Orientation/Cognition Level of Alertness Confusional State Orientation Name,Day of Week,Place, Situation Language Function Ability No Deficits Noted Safety Awareness Decreased Safety Awareness Comments Pt appears groggy and has intermittent difficulty attending to task but is able to recall all back precautions . Gross Range of Motion Upper Extremity ROM Assessment Within Functional Limits Lower Extremity ROM Assessment Within Functional Limits Strength Upper Extremity Strength Assessment Bilaterally Impaired Lower Extremity Strength Assessment Bilaterally Impaired Hip B 4-/5 Knee B 4-/5 Ankle L 4-/5; R 3+/5 Comments Strength Comments Pt states right foot feels numb and heavy Sensation Assessment Sensation Gross Sensation Right LE Impaired,Left LE Impaired Light Touch Impaired Proprioception (Position) Impaired Sensation Description Numbness,Pain Comments Sensation Comments Numbness reported B posterior thighs and right foot Muscle Tone Muscle Tone WNL Yes M6 PT-IP Treatment Start: 04/23/20 08:23 Freq: NEEDED Status: Active Protocol: Document 04/23/20 11:36 AW (Rec: 04/23/20 13:16 AW [id number]) Physical Therapy Treatment Education Education Provided Precautions,Weight Bearing Status,Post-Op Packet,Safety Other Treatments Other Treatment Performed Provided education on role of PT, plan of care, lumbar precautions, and safe use of FWW. M7 PT-IP Assessment and Plan Start: 04/23/20 08:23 Freq: NEEDED Status: Active Protocol: Document 04/23/20 11:36 AW (Rec: 04/23/20 13:16 AW [id number]) PT Summary Assessment and Plan Potential Rehabilitation Potential Good Status of Condition at Evaluation Evolving Summary Impairments Pain,ROM,Strength,Balance, Sensation,Bed Mobility, Transfers,Gait,Activity Tolerance Assessment Summary Hugo is a 69 yo man seen for PT eval on POD1 following L3- S1 TLIF and L2-3 jessica- laminectomy. Pt is independent in all regards at baseline but admits to limited standing tolerance with a limit of ~10 minutes. On evaluation, pt required min-mod assist with bed mobility and sit to stand, CGA for ambulation with FWW. Pt will likely be safe to discharge home with assist once medically cleared if he progresses as anticipated. PT will continue to assess and refine discharge disposition. Pt will likely need FWW for home use. Goals Bed Mobility Goal Standby Assistance Transfer Goal Standby Assistance,Front Wheeled Walker Gait Goal Standby Assistance,Front Wheel Walker Gait Distance 150 Other Goals - up/down 3 steps with R rail ascending SBA - improve gait to 150 feet with SPC or LRAD SBA Days to Meet Goals 5 Frequency of Treatment Frequency Of Treatment Twice a Day Treatment Plan Physical Therapy Treatment Plan Bed Mobility Training,Transfer Training,Gait Training, Therapeutic Exercise,Balance Retraining,Post Op Education, Discharge Planning,Hot or Cold Pack,Neuromuscular Re-ed Recommendations To Nursing Amount of Assist Needed 1 Person Assist Discharge Recommendations PT Discharge Recommendations Home with Assistance Equipment Needed for Home Before FWW Discharge Transportation Needs at Discharge Private Vehicle
--- NOTE | 2020-04-23 15:02 | OT.IP.EVAL ---
Current Diagnoses Spondylolisthesis, lumbar region (04/22/20) Spinal stenosis, lumbar region without neurogenic claudication (04/22/20) Postlaminectomy syndrome, not elsewhere classified (04/22/20) Surgery Performed Operation Date: 04/22/20 08:45 Actual Procedures p L2-3 left hemilaminectomy, L3-4, L4-5, L5-S1 TLIF w/ posterior instrumentation - Juan M Garvey MD Past Medical History (Last Reviewed 04/23/20 @ 10:47 by Grace Easley PA-C) Acid reflux Arthritis Hearing impaired History of Mohs micrographic surgery for skin cancer (2019) HTN (hypertension) Hx of Prinzmetal angina (~1999) Hyperlipidemia Osteoarthritis Post-nasal drip Postlaminectomy syndrome Postlaminectomy syndrome, not elsewhere classified Psoriasis Sciatica Spinal stenosis Spinal stenosis, lumbar region without neurogenic claudication Spondylolisthesis, lumbar region Surgical History (Last Reviewed 04/23/20 @ 10:47 by Grace Easley PA-C) History of back surgery (~2002) History of eye surgery History of phacoemulsification of cataract of left eye with intraocular lens implantation History of surgery (10/2019) Hx of laminectomy (~2008) Hx of parotidectomy (1960) Hx of tonsillectomy S/P excision of lipoma (05/2016) Occupational Therapy Inpatient Evaluation/Re-Eval M1 PT/OT-IP Prior Functional Status Start: 04/23/20 15:12 Freq: NEEDED Status: Active Protocol: Document 04/23/20 15:12 [facility] (Rec: 04/23/20 15:38 [facility] [id number]) Medical Review Prior Functional Status Medical History Reviewed Yes Communication WNL Mobility and Gait Independent ambulation but with limited standing tolerance due to stenosis. Pt reports ability to stand ~10 minutes. Activities of Daily Living and IADL's Slow but independent with ADL' s. 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 Prior Functional Level (Other details) Pt had L1-5 lami ~10 years ago Social History Household Members spouse Living Arrangements House Number of Floors (Floors) Two Floors Number of Stairs To Enter/Railing? No stairs at front entrance. 3 [address] with R rail ascending through the garage. 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 He lives with his , Chantell, who used to be an RN and now works as an deputy county attorney. She will be available to assist the pt at discharge. M2 OT-IP Current Condition Start: 04/23/20 15:12 Freq: Status: Active Protocol: Document 04/23/20 15:12 [facility] (Rec: 04/23/20 15:38 [facility] [id number]) Occupational Therapy Current Condition Current Condition Evaluation Date 04/23/20 Treatment Diagnosis S/P L3-S1 TLIF and L2-3 hemilaminectomy Diagnosis Onset Date 04/22/20 M3 OT- IP Subjective and Pain Start: 04/23/20 15:12 Freq: Status: Active Protocol: Document 04/23/20 15:12 [facility] (Rec: 04/23/20 15:38 [facility] [id number]) OT- Subjective Occupational Therapy Visit Type Type Initial Evaluation Visit Start Time 14:30 Visit Stop Time 15:02 Total Visit Minutes 32 Occupational Therapy Visit Comments Patient Comments Pt agreeable to work with OT for OT eval. Pt's present in the room. Patient/Caregiver Goals TO go home. OT Pain Assessment Pain When Pain Assessed At Rest Pain Present Pain Present Denied Pain M4 OT- IP ADL's Start: 04/23/20 15:12 Freq: Status: Active Protocol: Document 04/23/20 15:12 [facility] (Rec: 04/23/20 15:38 [facility] [id number]) OT [id number] Comments OT Self-Feeding Comments NOt at meal time. OT ADL-Grooming Comments OT Grooming Comments Pt states did prior. OT ADL-Oral Care Comments Oral Care Comments Educated pt to spit into a cup or hinge at his hips to spit into the sink. OT ADL-Dressing General Eval Lower Body Dressing Ability Standby Assistance,Maximum Assistance Comments OT Dressing Comments Educated pt use of asset liability analyst and sock aid to best be able to do socks and follow his back precautions. Suggest for now will be safer to sit and do LB dressing needs. Pt issued LB dresing equipment. OT ADL-Toileting Comments OT Toileting Comments Pt not having to go. Pt able to simulate wiping and easier to stand to be able to reach at this time. Pt also considering getting a BSC. OT ADL-Bathing Comments OT Bathing Comments Suggested shower chair and grab bars in the shower. M5 OT- IP IADL's Start: 04/23/20 15:12 Freq: Status: Active Protocol: Document 04/23/20 15:12 [facility] (Rec: 04/23/20 15:38 [facility] [id number]) OT-Instrumental Activities of Daily Living Home Safety Awareness Awareness of Need for Assistance at Home Good Awareness Ability to Problem Solve Emergency Able to Problem Solve Situations Medication Management Medication Management Comments Pt's to assist/provide supervision for medications needs. Money Management Money Management Comments Suggested may be best for to do the bills for now. Meal Preparation Meal Preparation Caregiver Provides Assist Airconditioning Drafting Officer Airconditioning Drafting Officer Caregiver Provides Assist M6 OT- IP Functional Cognition Start: 04/23/20 15:12 Freq: Status: Active Protocol: Document 04/23/20 15:12 [facility] (Rec: 04/23/20 15:38 [facility] [id number]) Cognitive Factors Limiting Selfcare Function Cognitive Ability Level of Alertness Alert Patient Orientation Name,Place,Situation Attention Span Ability Capable of Focused Attention, Capable of Sustained Attention Ability to Follow Commands Able to Follow One Step Commands Safety Awareness Decreased Ability to Apply Precautions,Underestimates Need for Assistance Cognitive Comments Cognitive Assessment Comments Pt able to follow commands for education fo back precautions for ADL needs. Pt needing vc to apply back precautions as tends to twist at times. M7 OT- IP Mobility and Balance Start: 04/23/20 15:12 Freq: Status: Active Protocol: Document 04/23/20 15:12 [facility] (Rec: 04/23/20 15:38 [facility] [id number]) OT-Transfer Assessment Sit to and From Stand Sit to and from Stand Contact Guard Assistance Transfers Transfer Ability Contact Guard Assistance Technique Transfer Destination Chair,Toilet Transfer Technique Stand Step Pivot Devices Transfer Assistive Devices Gait Belt,Front Wheeled Walker Comments Mobility Comments Pt not wanting to get back to bed and wanting to wait until PT sees the pt for this afternoon. OT- Gait Assessment Comments Gait Ability Comments CGA with FWW. OT- Balance Assessment Sitting Balance and Reactions Static Sitting Balance Ability Normal Dynamic Sitting Balance Ability Good Standing Balance and Reactions Static Standing Balance Ability Fair Comments Other Balance Tests/Deviations/Treatment Pt did have buckling of his : legs when backing up to the recliner and needing RAFA to help steady with use of FWW. M8 OT- IP Objective Assessments Start: 04/23/20 15:12 Freq: Status: Active Protocol: Document 04/23/20 15:12 [facility] (Rec: 04/23/20 15:38 [facility] [id number]) OT Gross Range of Motion Upper Extremity Range of Motion Assessment Bilaterally Impaired OT Strength Upper Extremity Strength Assessment Bilaterally Impaired OT-Muscle Tone Assessment Muscle Tone WNL Yes M9 OT- IP Assessment and Plan Start: 04/23/20 15:12 Freq: Status: Active Protocol: Document 04/23/20 15:12 [facility] (Rec: 04/23/20 15:38 [facility] [id number]) OT Summary Assessment and Plan Potential Rehabilitation Potential Good Analytic Complexity at Evaluation Low Summary OT Impairments Pain,Strength,Balance, Functional Cognition, Functional Mobility,Grooming, Dressing,Toileting,Bathing, Toilet Transfers,Shower Transfers,Activity Tolerance Progress Towards Goals Slow Progress due to Pain,Slow Progress due to Medical Issues,Slow Progress due to Activity Tolerance Assessment Summary Pt low complexity main barriers are pain, needing assist for ADl and functional transfers, and decreased balance and activity tolerance. Pt's to participate in caregiver training tomorrow for ADL needs and possibly for a shower. Pt to go home with pending progress and caregiver training. Goals Grooming Goal Independent Dressing Goal Independent Toileting Goal Independent Bathing Goal Independent Toilet Transfer Goal Independent Shower Transfer Goal Independent Patient/Caregiver Education Goal Demonstrate Post-Op Precautions Days to Meet Goals 12 Frequency of Treatment Frequency Of Treatment Once a Day Treatment Plan OT Treatment Plan ADL Training,Functional Cognition Training,Functional Mobility,Patient/Family Education,Discharge Planning Other Treatment Recommendations and Next caregiver training,shower Treatment Focus Discharge Recommendations OT Discharge Recommendations Home with Assistance Home Equipment Needs BSC,shower chair, FWW Transportation Needs at Discharge Private Vehicle
--- NOTE | 2020-04-23 15:30 | PT.IPTN ---
Addendum entered and electronically signed by Otilia Henson, PT 04/23/20 15:48: Pt confirms his bedroom and bath are on the leather leveler. He has no need to access the second level. Original Note: Current Diagnoses Spondylolisthesis, lumbar region (04/22/20) Spinal stenosis, lumbar region without neurogenic claudication (04/22/20) Postlaminectomy syndrome, not elsewhere classified (04/22/20) Surgery Performed Operation Date: 04/22/20 08:45 Actual Procedures p L2-3 left hemilaminectomy, L3-4, L4-5, L5-S1 TLIF w/ posterior instrumentation - Juan M Garvey MD Physical Therapy Treatment Note M2 PT-IP Current Condition Start: 04/23/20 08:23 Freq: NEEDED Status: Active Protocol: Document 04/23/20 11:36 AW (Rec: 04/23/20 13:16 AW [id number]) Physical Therapy Current Condition Current Condition Evaluation Date 04/23/20 Treatment Diagnosis L3-S1 TLIF, L2-3 hemilami; difficulty in walking Onset Date 04/22/20 Precautions Lumbar Precautions Log Roll,No Twisting,Limit Bending,Lifting Restriction of 10 lbs,Gait Belt above Incisional Area M3 PT-IP Subjective Start: 04/23/20 08:23 Freq: NEEDED Status: Active Protocol: Document 04/23/20 15:29 AW (Rec: 04/23/20 15:47 AW [id number]) Subjective Physical Therapy Visit Type Type Treatment Note Visit Start Time 14:59 Visit Stop Time 15:25 Total Visit Minutes 26 Notes Pt's , Chantell, is present throughout treatment Number of STRETCHER OPERATOR Visits 0 Physical Therapy Visit Comments Patient Comments Pt has been sitting up in the chair since morning PT and just finished up with OT. Patient Goals Return home with spouse assist Therapy Pain Assessment Pain When Pain Assessed During Mobility Pain Present Pain Present Pain Reported Location Back Intensity 5 Scale Used unchanged from at rest Pain Management Techniques Re-positioning,Timing of Activity with Medications M4 PT-IP Mobility and Gait Start: 04/23/20 08:23 Freq: NEEDED Status: Active Protocol: Document 04/23/20 15:29 AW (Rec: 04/23/20 15:47 AW [id number]) PT-Bed Mobility Assessment Rolling Type of Rolling Log Rolling,Roll to Left Level of Assist Standby Assistance,Contact Guard Assistance Supine to Sit Supine to Sit Contact Guard Assistance, Minimal Assistance Sit to Supine Sit to Supine Contact Guard Assistance, Minimal Assistance Scooting Scooting to Edge of Bed Standby Assistance PT-Transfer Assessment Sit to and From Stand Sit to and from Stand Minimal Assistance,1 Person Assistance,Use of Upper Extremities Equipment Transfer Assistive Device Gait Belt,Front Wheeled Walker Orthotic/Prosthetic Devices or Brace: No Transfers Transfer Destination Bed,Chair Transfer Technique Stand Step Pivot Transfer Ability Level of Assist Contact Guard Assistance,Use of Upper Extremities Comments Mobility Comments Pt was sitting up in the chair as PT arrived. He scooted to EOC and stood min A x 1 with cues for knee extension. Initial standing was unsteady but improved with active knee extension. Pt ambulated in the halls a total of 200 feet with FWW SBA/CGA. Pt ambulated with slightly NBOS and occasionally crossed midline with the RLE which necessitated CGA for balance. On return to the room, pt walked to the left side of the bed and transferred to supine with reverse log roll, requiring min assist on first attempt. He performed 2 more reps and steadily improved with need for CGA and then SBA . Pt finally stood from the bed min A x 1, walked around the bed, and sat on the chair CGA. Pt was positioned with call light and all needs in reach. Gait Assessment Gait Gait Assistance Required: Standby Assistance,Contact Guard Assist Distance (Feet) 200 Able to Maintain Weight Bearing Status Yes During Gait Assistive Devices Assistive Device Gait Belt,Front Wheeled Walker Orthotic/Prosthetic Devices or Brace: No Gait Deviations General Gait Pattern Antalgic,Decreased Stride Length,Decreased Feet Clearance,Flexed Trunk,Narrow Based Gait,Step-to Gait Factors Limiting Gait Function Factors Limiting Gait Function Decreased Activity Tolerance, Decreased Sensation,Decreased Strength,Limited Range of Motion,Pain,Poor Balance,Poor Safety Awareness Comments Gait Comments See mobility comments. Pt started with excessive shoulder elevation. Reduced height of walker with good results, arms more relaxed. Stair Climbing Assessment Comments Stair Climbing Comments Not assessed. PT-Balance Assessment Sitting Balance and Reactions Static Sitting Balance Ability Good Dynamic Sitting Balance Ability Good Standing Balance and Reactions Static Standing Balance Ability Fair Dynamic Standing Balance Ability Fair Device Used FWW M5 PT-IP Objective Assessments Start: 04/23/20 08:23 Freq: NEEDED Status: Active Protocol: Document 04/23/20 11:36 AW (Rec: 04/23/20 13:16 AW [id number]) Orientation Orientation/Cognition Level of Alertness Confusional State Orientation Name,Day of Week,Place, Situation Language Function Ability No Deficits Noted Safety Awareness Decreased Safety Awareness Comments Pt appears groggy and has intermittent difficulty attending to task but is able to recall all back precautions . Gross Range of Motion Upper Extremity ROM Assessment Within Functional Limits Lower Extremity ROM Assessment Within Functional Limits Strength Upper Extremity Strength Assessment Bilaterally Impaired Lower Extremity Strength Assessment Bilaterally Impaired Hip B 4-/5 Knee B 4-/5 Ankle L 4-/5; R 3+/5 Comments Strength Comments Pt states right foot feels numb and heavy Sensation Assessment Sensation Gross Sensation Right LE Impaired,Left LE Impaired Light Touch Impaired Proprioception (Position) Impaired Sensation Description Numbness,Pain Comments Sensation Comments Numbness reported B posterior thighs and right foot Muscle Tone Muscle Tone WNL Yes M6 PT-IP Treatment Start: 04/23/20 08:23 Freq: NEEDED Status: Active Protocol: Document 04/23/20 15:29 AW (Rec: 04/23/20 15:47 AW [id number]) Physical Therapy Treatment Education Education Provided Precautions,Safety M7 PT-IP Assessment and Plan Start: 04/23/20 08:23 Freq: NEEDED Status: Active Protocol: Document 04/23/20 15:29 AW (Rec: 04/23/20 15:47 AW [id number]) PT Summary Assessment and Plan Summary Impairments Pain,ROM,Strength,Balance, Sensation,Bed Mobility, Transfers,Gait,Activity Tolerance Progress Towards Goals Progressing Toward Goals Assessment Summary Hugo had impoved pain control and tolerated more activity this PM. He ambulated 200 feet with FWW SBA to CGA. Pt has initial unsteadiness in standing requiring CGA and cues for knee extension. During gait, pt exhibits NBOS and occasional scissoring with RLE. Advised pt and his to procure a FWW from [employer] if able tomorrow. Goals Bed Mobility Goal Standby Assistance Transfer Goal Standby Assistance,Front Wheeled Walker Gait Goal Standby Assistance,Front Wheel Walker Gait Distance 150 Other Goals - up/down 3 steps with R rail ascending SBA - improve gait to 150 feet with SPC or LRAD SBA Days to Meet Goals 5 Frequency of Treatment Frequency Of Treatment Twice a Day Treatment Plan Physical Therapy Treatment Plan Bed Mobility Training,Transfer Training,Gait Training, Therapeutic Exercise,Balance Retraining,Post Op Education, Discharge Planning,Hot or Cold Pack,Neuromuscular Re-ed Other Recommendations and Next Treatment stairs when able Focus Recommendations To Nursing Amount of Assist Needed 1 Person Assist Discharge Recommendations PT Discharge Recommendations Home with Assistance Equipment Needed for Home Before FWW Discharge Transportation Needs at Discharge Private Vehicle
--- NOTE | 2020-04-23 15:35 | CM.IDA ---
Addendum entered by NILSA Wright 04/23/20 15:41: In addition, patient is indp and active at baseline Original Note: Initial DCP Assessment Note Pt is a 69 yo male, resident of [place], now POD#1 from spinal surgery w/ Dr Garvey PCP: Lito Powell Payer: TRANG/Chanda Reviewed chart, pt discussed in multidisciplinary rounds this morning. Therapy has cleared pt for return home w/family to assist and pt has planned for home. According to patient, he is eager to return home w/spouse to assist, spouse is a former RN. No needs eexpected from DCP team, will remain available in case this changes before patient's DC. NILSA Wright
[2020-04-23] MEDS: SENNOSIDES 8.6 MG TABLET 17.2 MG PO (21:28)
[2020-04-24 00:15] VITALS: BP 138/70; PULSE 73; RESP 18; TEMP 36.9; O2SAT 94
[2020-04-24] MEDS: OXYCODONE IR 10 MG TABLET PO ×5 (00:27→17:26)
--- NOTE | 2020-04-24 00:45 | PC.NURSE ---
Addendum entered by Jaycee Mcduffie R.N. 04/24/20 05:58: Medicated with Oxycodone + Vistaril for complaint of 7/10 pain. States he was able to sleep several hours. Addendum entered by Jaycee Mcduffie R.N. 04/24/20 02:21: Patient awake and now requesting Vistaril; medicated as requested Original Note: 0020 patient is alert and oriented. Breath sounds CTA with RA sat of 94%. HRR. Denies nausea. BT present and is passing flatus. Indwelling catheter is patent; urine is clear, yellow. Is able to move himself in bed. States pain is 2/10 at rest but 8/10 with movement. Requested/medicated with Oxycodone but too early to give additional Vistaril. Gait not assessed but patient reports he ambulated in dejesus with 1 assist + walker yesterday and feels he did well. Dressing to back is intact with shadow drainage. States he has some residual numbness in bilateral feet but improved after receiving Decadron yesterday. Refusing to wear foot SCD's so reminded to ankle wave when awake. Fall risk score is moderate; bed alarm is activated. CIWA of 0.
[2020-04-24] MEDS: hydrOXYzine pamoate 25 MG CAPSULE 50 MG PO ×2 (02:10→05:56)
[2020-04-24 05:30] VITALS: BP 116/61; PULSE 65; RESP 18; TEMP 36.8; O2SAT 95
--- NOTE | 2020-04-24 07:44 | PM.PNPO.1 ---
Subjective Subjective Date Patient Seen: 04/24/20 Time Patient Seen: 07:44 Interval history: Pain moderate most of the time severe occasionally with movement. Had a small bowel movement this morning. No fever chills. is home to assist him. Otherwise without complaints. Exam Vital Signs (past 8 hours): - 04/24/20 00:15 04/24/20 05:30 Temperature 98.4 F 98.2 F Pulse Rate 73 65 Respiratory Rate 18 18 Blood Pressure 138/70 116/61 Pulse Oximetry 94 95 Oxygen Delivery Method Room Air Oxygen Flow Rate 0 Narrative Exam Narrative: 69-year-old male in no apparent distress. Dressing is clean, dry and intact. Motor functions intact distal bilateral lower extremities. Objective Labs Result Diagrams: 04/23/20 05:00 [facility] Medical History Acid reflux Arthritis Hearing impaired History of Mohs micrographic surgery for skin cancer (2019) HTN (hypertension) Hx of Prinzmetal angina (~1999) Hyperlipidemia Osteoarthritis Post-nasal drip Postlaminectomy syndrome Postlaminectomy syndrome, not elsewhere classified Psoriasis Sciatica Spinal stenosis Spinal stenosis, lumbar region without neurogenic claudication Spondylolisthesis, lumbar region Surgical History History of back surgery (~2002) History of eye surgery History of phacoemulsification of cataract of left eye with intraocular lens implantation History of surgery (10/2019) Hx of laminectomy (~2008) Hx of parotidectomy (1960) Hx of tonsillectomy S/P excision of lipoma (05/2016) Social History household members: spouse Smoking Status: Former smoker alcohol intake: current Assessment & Plan Post-op Postoperative Procedures: Procedures Operation Date: 04/22/20 08:45 Actual Procedures Side Surgeon p L2-3 left hemilaminectomy, L3-4, L4-5, L5-S1 TLIF w/ posterior instrumentation Juan M Garvey MD Patient progressing as expected status post L3-L4, L4-L5, L5-S1 fusion. Discontinue catheter. Mobilize with physical therapy. Limit bending, lifting, twisting. Likely discharge home this afternoon if able to urinate after catheter is discontinued. Quality VTE Deep Vein Thrombosis/Pulmonary Embolism Present on Admission: No
[2020-04-24 07:47] VITALS: BP 126/68; PULSE 65; RESP 16; TEMP 36.3; O2SAT 95
--- NOTE | 2020-04-24 09:05 | PC.NURSE ---
Addendum entered by Rosa Machado R.N. 04/24/20 15:01: *grammatical errors below. The follow to improve documentation. pt pending DC depending on voiding status. So far pt has had 450mL output when I removed his Roland this morning around 0900 and recent bladder scan showed 57mL post 75mL void for a rough total of 200mL post Roland removal. Addendum entered by Rosa Machado R.N. 04/24/20 14:59: pt pending DC depending on voiding status. So far pt has had 450mL output when I removed his Roland this morning around 0900 and has only voided ~200mL since. Recent bladder scan showed 57mL post 75mL void for a rough total of 200mL post Roland removal.l Original Note: AM shift note. pt AO and receptive to care. Roland removed per YAHAIRA Núñezs orders at 0800 and tolerated well. pt self reporting medium soft BM this AM and flushed before staff could assess. Sitting up in chair and tolerating meals. Reporting pressure at rest and moderate pain with activity and being managed with oxycodone and visteril. Bruising to bilateral hips and island dressing to back with mild shadowing. IS at bedside table. SCD's on intermittently but easily kicked off by patient and he states that they are uncomfortable. Report stated pt drinks ~3 drinks a day, pt denying headache, chills, sweats, auditory or visual hallucinations. pt possible DC today and YAHAIRA Núñez will stop by later today to reassess (pain and voiding).
[2020-04-24 09:16] VITALS: BP 138/74; PULSE 70
[2020-04-24] MEDS: LOSARTAN 50 MG TABLET PO (09:16)
[2020-04-24] MEDS: ATORVASTATIN 20 MG TABLET 40 MG PO (09:16)
[2020-04-24] MEDS: AMLODIPINE 5 MG TABLET 10 MG PO (09:18)
[2020-04-24] MEDS: SODIUM CHLORIDE 0.9% FLUSH 10 ML IV (09:19)
[2020-04-24] MEDS: ACETAMINOPHEN 325 MG TABLET 650 MG PO ×2 (09:24→15:47)
[2020-04-24] MEDS: FOLIC ACID 1 MG TABLET PO (09:26)
--- NOTE | 2020-04-24 10:32 | PT-IP ANOTE ---
Attempted to see patient at 10:32, patient refused therapy due to high pain and lack of sleep last night. Patient requesting PM treatment only, but stated he may feel well enough just prior to lunch. Will check back.
[2020-04-24 11:48] VITALS: BP 107/60; PULSE 66; RESP 14; TEMP 36.1; O2SAT 95
--- NOTE | 2020-04-24 11:58 | OT.IPNOTE ---
Attempted to see pt for OT services. Pt declined all activity at this time despite encouragement. Pt is planned for d/c home today. Will continue to follow.
--- NOTE | 2020-04-24 13:09 | PT.IPTN ---
Current Diagnoses Spondylolisthesis, lumbar region (04/22/20) Spinal stenosis, lumbar region without neurogenic claudication (04/22/20) Postlaminectomy syndrome, not elsewhere classified (04/22/20) Surgery Performed Operation Date: 04/22/20 08:45 Actual Procedures p L2-3 left hemilaminectomy, L3-4, L4-5, L5-S1 TLIF w/ posterior instrumentation - Juan M Garvey MD Physical Therapy Treatment Note M2 PT-IP Current Condition Start: 04/23/20 08:23 Freq: NEEDED Status: Active Protocol: Document 04/23/20 11:36 AW (Rec: 04/23/20 13:16 AW [id number]) Physical Therapy Current Condition Current Condition Evaluation Date 04/23/20 Treatment Diagnosis L3-S1 TLIF, L2-3 hemilami; difficulty in walking Onset Date 04/22/20 Precautions Lumbar Precautions Log Roll,No Twisting,Limit Bending,Lifting Restriction of 10 lbs,Gait Belt above Incisional Area M3 PT-IP Subjective Start: 04/23/20 08:23 Freq: NEEDED Status: Active Protocol: Document 04/24/20 12:31 KS (Rec: 04/24/20 13:24 KS [id number]) Subjective Physical Therapy Visit Type Type Treatment Note Visit Start Time 12:31 Visit Stop Time 13:09 Total Visit Minutes 38 Notes Pt's , Chantell, is present throughout treatment for caregiver training Number of CANOE BUILDER Visits 1 Physical Therapy Visit Comments Patient Comments Pt agreeable to work with therapy Patient Goals Return home with spouse assist M4 PT-IP Mobility and Gait Start: 04/23/20 08:23 Freq: NEEDED Status: Active Protocol: Document 04/24/20 12:31 KS (Rec: 04/24/20 13:24 KS [id number]) PT-Bed Mobility Assessment Rolling Type of Rolling Log Rolling,Roll to Left Level of Assist Standby Assistance,Contact Guard Assistance Supine to Sit Supine to Sit Standby Assistance,Minimal Assistance Sit to Supine Sit to Supine Standby Assistance,1 Person Assistance Scooting Scooting to Edge of Bed Standby Assistance PT-Transfer Assessment Sit to and From Stand Sit to and from Stand Standby Assistance,Contact Guard Assistance,1 Person Assistance,Use of Upper Extremities Equipment Transfer Assistive Device Gait Belt,Front Wheeled Walker Orthotic/Prosthetic Devices or Brace: No Transfers Transfer Destination Bed,Chair Transfer Technique pt ambulated w/ FWW Transfer Ability Level of Assist Contact Guard Assistance,Use of Upper Extremities Comments Mobility Comments Patient in chair upon arrival from therapy w/ in room for caregiver training. 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 Patient SBA for scooting to EOC and CGA for sit<>stand w/ FWW. Pt then ambulated ~120 ft w/ SBA to CGA w/ FWW with providing appropriate assist. Pt then returned to room and bed and performed bed mobility and logroll SBA w/ cues. Pt then ambulated back to chair w/ FWW and transferred to chair SBA. Pt left in chair w/ all needs in reach. Gait Assessment Gait Gait Assistance Required: Standby Assistance,Contact Guard Assist Distance (Feet) 120 Able to Maintain Weight Bearing Status Yes During Gait Assistive Devices Assistive Device Gait Belt,Front Wheeled Walker Orthotic/Prosthetic Devices or Brace: No Gait Deviations General Gait Pattern Antalgic,Decreased Stride Length,Decreased Feet Clearance,Flexed Trunk,Narrow Based Gait,Step-to Gait Factors Limiting Gait Function Factors Limiting Gait Function Decreased Activity Tolerance, Decreased Sensation,Decreased Strength,Limited Range of Motion,Pain,Poor Balance,Poor Safety Awareness Comments Gait Comments Please refer to mobility section for details. Stair Climbing Assessment Comments Stair Climbing Comments Not assessed. No stairs at front entrance. PT-Balance Assessment Sitting Balance and Reactions Static Sitting Balance Ability Good Dynamic Sitting Balance Ability Good Standing Balance and Reactions Static Standing Balance Ability Fair Dynamic Standing Balance Ability Fair Device Used FWW M5 PT-IP Objective Assessments Start: 04/23/20 08:23 Freq: NEEDED Status: Active Protocol: Document 04/23/20 11:36 AW (Rec: 04/23/20 13:16 AW [id number]) Orientation Orientation/Cognition Level of Alertness Confusional State Orientation Name,Day of Week,Place, Situation Language Function Ability No Deficits Noted Safety Awareness Decreased Safety Awareness Comments Pt appears groggy and has intermittent difficulty attending to task but is able to recall all back precautions . Gross Range of Motion Upper Extremity ROM Assessment Within Functional Limits Lower Extremity ROM Assessment Within Functional Limits Strength Upper Extremity Strength Assessment Bilaterally Impaired Lower Extremity Strength Assessment Bilaterally Impaired Hip B 4-/5 Knee B 4-/5 Ankle L 4-/5; R 3+/5 Comments Strength Comments Pt states right foot feels numb and heavy Sensation Assessment Sensation Gross Sensation Right LE Impaired,Left LE Impaired Light Touch Impaired Proprioception (Position) Impaired Sensation Description Numbness,Pain Comments Sensation Comments Numbness reported B posterior thighs and right foot Muscle Tone Muscle Tone WNL Yes M6 PT-IP Treatment Start: 04/23/20 08:23 Freq: NEEDED Status: Active Protocol: Document 04/24/20 12:31 KS (Rec: 04/24/20 13:24 KS [id number]) Physical Therapy Treatment Education Education Provided Precautions,Safety Other Treatments Other Treatment Performed patient able to recall 3/3 precautions. M7 PT-IP Assessment and Plan Start: 04/23/20 08:23 Freq: NEEDED Status: Active Protocol: Document 04/24/20 12:31 KS (Rec: 04/24/20 13:24 KS [id number]) PT Summary Assessment and Plan Summary Impairments Pain,ROM,Strength,Balance, Sensation,Bed Mobility, Transfers,Gait,Activity Tolerance Progress Towards Goals Progressing Toward Goals Assessment Summary Completed caregiver training w / patients who was able to provide appropriate cues and assist throughout treatment. Pt SBA to CGA for bed mobility, transfers, and ambulation w/ FWW w/ min cues for FWW use. Patient tolerated ~120 ft ambulation w/ FWW. Pts was able to obtain FWW for home use. Patient will be safe to return home with providing assistance when medically stable. Pt and confirm no necessary stairs at home. Goals Bed Mobility Goal Standby Assistance Transfer Goal Standby Assistance,Front Wheeled Walker Gait Goal Standby Assistance,Front Wheel Walker Gait Distance 150 Other Goals - up/down 3 steps with R rail ascending SBA - improve gait to 150 feet with SPC or LRAD SBA Days to Meet Goals 5 Frequency of Treatment Frequency Of Treatment Twice a Day Treatment Plan Physical Therapy Treatment Plan Bed Mobility Training,Transfer Training,Gait Training, Therapeutic Exercise,Balance Retraining,Post Op Education, Discharge Planning,Hot or Cold Pack,Neuromuscular Re-ed Other Recommendations and Next Treatment stairs when able Focus Recommendations To Nursing Amount of Assist Needed 1 Person Assist Discharge Recommendations PT Discharge Recommendations Home with Assistance Equipment Needed for Home Before Pts obtained FWW from Discharge [employer]. Transportation Needs at Discharge Private Vehicle
[2020-04-24 15:00] VITALS: BP 103/52; PULSE 67; RESP 16; TEMP 36.4; O2SAT 94
--- NOTE | 2020-04-24 15:56 | PC.NURSE ---
Addendum entered by Manuela Kam R.N. 04/24/20 18:31: Pt able to void once again in bathroom. Continue to encourage oral fluids. Pt denies feeling as though bladder is full or not emptying completely. Coversite dressings x 2 changed to back incision as ordered. Right lateral vertical staple line intact without drainage. Left lateral surgical line covered in yellow surgical tape and this was left intact. Single wide steristrip intact to left flank with old drainage visible. Extensive purple bruising to left flank/hip with scattered purple bruising around surgical incisions. Reinforced to pt and pt's spouse (who returns for discharge teaching) pt to avoid bending, lifting, twisting. Assisted pt to dress and this was reinforced. Discharge instructions provided to pt and pt's spouse in written and verbal format. Pt left hospital in stable condition with [employer] escort via wheelchair with all valuables and personal effects accounted for. Advised pt to avoid alcohol consumption while taking narcotics for pain management. Addendum entered by Manuela Kam R.N. 04/24/20 17:27: Pt denies incisional pain @ rest. Admits to 7/10 pain with movement and activity. Oxycodone administered in preparation for ride to home and movement associated with same. Addendum entered by Manuela Kam R.N. 04/24/20 17:21: Voided 130 cc's. Up in chair for dinner. Plan dc after evening meal. Dressing to be changed as ordered and spouse to return. Original Note: Pt lying quietly in bed. Rates back pain 6-7/10 and requests tylenol. This was given. Discussion with pt and pt's spouse (who is present in pt's room) pt's need to void measurable quantity before can be dc'd to home. Encouraged oral fluids and these were provided per pt's request. Spouse was given pt's prescriptions to fill and will return following evening meal to plan to take pt to home. Will continue to monitor for pain relief and urinary output.
== END 2020-04-24 18:38 | disposition home or self-care (01) | DRG 455 ==
PROVIDERS: Admitting Provider Orthopaedic Surgery Orthopaedic Surgery of the Spine; PCP Internal Medicine; Referring Provider Internal Medicine; Visit Provider Orthopaedic Surgery Orthopaedic Surgery of the Spine
PROC: 0SG10AJ Fusion of 2 or more Lumbar Vertebral Joints with Interbody Fusion Device, Posterior Approach, Anterior Column, Open Approach (ICD-10-PCS; principal; 2020-04-22 08:45)
DX: M48.061 Spinal stenosis, lumbar region without neurogenic claudication (principal); I10 Essential (primary) hypertension; E78.5 Hyperlipidemia, unspecified; I45.10 Unspecified right bundle-branch block; M96.1 Postlaminectomy syndrome, not elsewhere classified; M43.16 Spondylolisthesis, lumbar region; Z20.822 Contact with and (suspected) exposure to COVID-19; M48.07 Spinal stenosis, lumbosacral region; M47.816 Spondylosis without myelopathy or radiculopathy, lumbar region; M47.817 Spondylosis without myelopathy or radiculopathy, lumbosacral region; R25.2 Cramp and spasm; Z87.891 Personal history of nicotine dependence
CPT/HCPCS: 36415; 72100; 76000; 85014; 85018; 87635; 97116; 97161; 97165; 97530; C1776; C9803; C9290; J0690; J1100; J1170; J2405; J2704; J3010

== ENCOUNTER → 2020-06-22 20:11 | Outpatient (ROUT) | payer MEDICARE, OTHER, SELFPAY ==
[2020-04-22 18:29] VITALS: BMI 25.4
[2020-06-22 20:48] LABS: Add Manual Diff / Slide Review NO; Basophils Absolute Auto 0 /uL (0-100); Basophils Percent Auto 0.3 % (0-2); Eosinophils Absolute Auto 200 /uL (0-450); Eosinophils Percent Auto 2.3 % (2-4); Hematocrit 44.9 % (41-53); Hemoglobin 14.6 g/dL (13.5-17.5); Lymphocytes Absolute Auto 1600 /uL (1100-4500); Lymphocytes Percent Auto 21.7 % (25-40); Mean Corpuscular HGB Conc 32.5 % (30-36); Mean Corpuscular Hemoglobin 27.3 PG (26-34); Monocytes Absolute Auto 700 /uL (0-900); Neutrophils Absolute Auto 4800 /uL (1500-7000); Neutrophils Percent Auto 66.7 % (50-75); Platelet Count 215 X10^3/uL (150-400); Red Blood Cell Count 5.34 X10^6/uL (4.5-5.9); Red Cell Distribution Width 16.2 % (11.6-14.8); White Blood Cell Count 7.2 X10^3/uL (4.5-11.0)
[2020-06-22 20:55] LABS: BUN Creatinine Ratio 22.1 (6-22); Blood Urea Nitrogen 17 mg/dL (9-20); Calcium 9.6 mg/dL (8.4-10.2); Carbon Dioxide 27 mmol/L (22-32); Chloride 103 mmol/L (98-107); Estimated Glomerular Filt Rate > 60.0 mL/min (>60); Glucose 96 mg/dL (80-110); HEMOLYSIS < 15 (0-50); Potassium 3.9 mmol/L (3.4-5.1); Sodium 140 mmol/L (137-145)
== END ==
PROVIDERS: Family Provider Internal Medicine; PCP Internal Medicine; Visit Provider Internal Medicine
DX: I10 Essential (primary) hypertension (principal)
CPT/HCPCS: 80048; 85025

== ENCOUNTER 2020-11-26 09:45 | Outpatient (RCR) | payer MEDICARE, OTHER, SELFPAY ==
[2020-04-22 18:29] VITALS: BMI 25.4
--- NOTE | 2020-06-10 18:15 | PT.OIE ---
Current Diagnoses Spondylolisthesis, lumbar region (06/10/20) Spinal stenosis, lumbar region without neurogenic claudication (06/10/20) Postlaminectomy syndrome, not elsewhere classified (06/10/20) Difficulty in walking, not elsewhere classified (06/10/20) Abnormal posture (06/10/20) Past Medical History (Last Reviewed 04/24/20 @ 07:45 by Huang Núñez PA-C) Acid reflux Arthritis Hearing impaired History of Mohs micrographic surgery for skin cancer (2019) HTN (hypertension) Hx of Prinzmetal angina (~1999) Hyperlipidemia Osteoarthritis Post-nasal drip Postlaminectomy syndrome Postlaminectomy syndrome, not elsewhere classified Psoriasis Sciatica Spinal stenosis Spinal stenosis, lumbar region without neurogenic claudication Spondylolisthesis, lumbar region Past Surgical History (Last Reviewed 04/24/20 @ 07:45 by Huang Núñez PA-C) History of back surgery (~2002) History of eye surgery History of phacoemulsification of cataract of left eye with intraocular lens implantation History of surgery (10/2019) Hx of laminectomy (~2008) Hx of parotidectomy (1960) Hx of tonsillectomy S/P excision of lipoma (05/2016) Visit Care Team Role Provider Type Lito Powell MD Family Provider Physician Primary Care Provider Specialty: Internal Medicine Address: [address] [place] [address], [id number] Email: [email or web address] Juan M Garvey MD Attending Provider Physician Referring Provider Specialty: Orthopedic Surgery Address: [address] [place] [address], [id number] Email: [email or web address] Physical Therapy Initial Evaluation PT-OP-A Visit Information Start: 06/10/20 14:36 Freq: Status: Active Protocol: Document 06/10/20 14:30 AW (Rec: 06/10/20 17:51 AW [email or web address]) Out-Patient Physical Therapy Visit Information Visit Information Visit Type Initial Evaluation Visit Start Time 14:30 Visit Stop Time 15:15 Total Visit Minutes 45 Visit Number 1 Number of SCALE ADJUSTER Visits 0 Evaluation Information Evaluation Date 06/10/20 PT-OP-B Current Condition Start: 06/10/20 14:36 Freq: Status: Active Protocol: Document 06/10/20 14:30 AW (Rec: 06/10/20 15:22 AW [id number]) Current Condition History of Current Condition Onset Date years Current Complaints LBP, BLE pain (left worse than right) History of Current Condition Pt has had three lumbar surgeries. The first was 20 years ago - a laminotomy which provided relief for ~10 years . Second surgery 10 years ago was laminectomy which provided relief for a while. He started to have pain again about a year ago and had TLIF two months ago. He's been trying to take it easy since surgery. He complains he is unable to walk or stand >10 min due to pain which he describes as stiffness. He is unable to bend far enough to comfortably reach his feet, interfering with dressing and other self-care tasks. He also has pain in his hips after sitting more than 10 minutes. When he gets up from resting position, he tends to walk in bent-forward position at first. Pt also reports numbness or dull light touch sensation in bilateral feet which he says is getting better little by little since surgery. Prior Treatments and Tests - April 2020: L3-S1 TLIF, L2 -3 hemilami - Prior PT for back pain Future Testing and Treatments Planned None identified Treatment Goals Patient/Caregiver Goals Pt would like to get back to golf in a few months. Have ROM to be able to don shoes/socks more easily, be able to lift 40 pounds, and generally increase BLE strength. Prior Functional Status Baseline Function- ADL's Independent Baseline Function- Mobility Independent Baseline Function- Gait no AD except in the one week following surgery Baseline Function- Work/School Pt is retired. 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 Needs to use a shoe horn Functional Limitations- Mobility/Gait Antalgic. Pt ambulates with significant R trunk rotation and R lateral lean. Also demonstrates steppage gait R>L for clearance of right foot. Functional Limitations- Recreation/ Unable to participate in golf. Hobbies Functional Limitations- Other Unable to lift more than light grocery bags without pain. PT-OP-C Subjective Start: 06/10/20 14:36 Freq: Status: Active Protocol: Document 06/10/20 14:30 AW (Rec: 06/10/20 17:51 AW [email or web address]) Patient Questionnaires Oswestry Low Back Index Oswestry Score 56 Oswestry Impairment 40 to 59% Impaired (Score 40- 59) Other Questionnaire Name and Score [facility] Back Screening Tool: total score 6; subscore 3. Scores indicate medium risk of chronicity and catastrophizing. OP-PT Pain Assessment Pain Assessment Grid Paper Pain Assessment Grid Completed Yes Location B feet Pain Location Details dorsal feet shaded Intensity 4 Scale Used Numeric (0 - 10) Back Pain Location Details lumbar spine Intensity 5 Scale Used Numeric (0 - 10) Description Tightness Frequency Constant PT-OP-D Balance Start: 06/10/20 14:36 Freq: Status: Active Protocol: Document 06/10/20 14:30 AW (Rec: 06/10/20 17:51 AW [email or web address]) OP-PT Balance Assessment Sitting Balance Static Sitting Balance Ability Good Dynamic Sitting Balance Ability Good Standing Balance Static Standing Balance Ability Fair Dynamic Standing Balance Ability Fair Device Used no AD Standing Balance Comments SLS R and L equal on multiple trials: 8 sec, 6 sec, 8 sec Balance Tests Single Limb Standing Single Limb- Right 8,6,8 Single Limb- Left 8,8,6 Mccann Fall Scale Copyright Permission PT-OP-E Functional Tests Start: 06/10/20 14:36 Freq: Status: Active Protocol: Document 06/10/20 14:30 AW (Rec: 06/10/20 18:01 AW [email or web address]) Functional Tests Single Leg Squat Test Score from 26.5 mat table bilaterally PT-OP-F Manual Assessment Start: 06/10/20 14:36 Freq: Status: Active Protocol: Document 06/10/20 14:30 AW (Rec: 06/10/20 17:51 AW [email or web address]) Manual Assessments Soft Tissue Assessment Soft Tissue Mobility Assessment Significant tone bilateral lumbar paraspinals PT-OP-G Mobility & Gait Start: 06/10/20 14:36 Freq: Status: Active Protocol: Document 06/10/20 14:30 AW (Rec: 06/10/20 17:51 AW [email or web address]) OP Mobility Evaluation Transfers Sit to Stand (+) nikki's sign on multiple observed attempts OP Gait Assessment Gait Gait Assistance Required: Independent Distance (Feet) 200 Assistive Devices Assistive Device None Gait Deviations General Gait Pattern Antalgic,Decreased Stride Length,Decreased Feet Clearance,Lateral Trunk Lean Factors Limiting Gait Function Factors Limiting Gait Function Decreased Activity Tolerance, Decreased Sensation,Decreased Strength,Limited Range of Motion,Pain,Poor Balance Comments Gait Comments Antalgic gait notable for increased trunk rotation to the right and right lateral lean. High steppage gait R>L to compensate for reduced foot clearance. PT-OP-H Neuro Start: 06/10/20 14:36 Freq: Status: Active Protocol: Document 06/10/20 14:30 AW (Rec: 06/10/20 17:51 AW [email or web address]) Sensation Evaluation Gross Sensation Gross Sensation Left LE Impaired,Right LE Impaired Sensation Description Numbness,Tingling Dermatome Impairments L5 Deep Tendon Reflex & Clonus Assessment Deep Tendon Reflex Bilateral Achilles Deep Tendon Reflex 0 Absent Bilateral Patellar Deep Tendon Reflex 2+ Normal PT-OP-J Posture/Palpation/Skin Start: 06/10/20 14:36 Freq: Status: Active Protocol: Document 06/10/20 14:30 AW (Rec: 06/10/20 17:51 AW [email or web address]) Posture Evaluation Comments Posture Comments Swayback with flat lumbar spine. Notable hinge at TL junction 2/2 hardware. PT-OP-K Range of Motion Start: 06/10/20 14:36 Freq: Status: Active Protocol: Document 06/10/20 14:30 AW (Rec: 06/10/20 18:00 AW [email or web address]) Lumbar Spine Range of Motion Lumbar Spine Active Degrees Testing Position Standing Flexion 35 Extension 8 ROM Limitations Soft Tissue Tightness,Pain Comments Side bending with fingertips 14 from the floor bilaterally . Rotation ~25% bilaterally. Hip Goniometric Range of Motion Hip ROM Limitations Comments B hip ROM WNL except IR <15 degrees. PT-OP-L Special Tests Start: 06/10/20 14:36 Freq: Status: Active Protocol: Document 06/10/20 14:30 AW (Rec: 06/10/20 18:00 AW [email or web address]) Special Tests Hip Special Tests Scour Test Test Results right hip positive for pain reproduction PT-OP-M Strength Start: 06/10/20 14:36 Freq: Status: Active Protocol: Document 06/10/20 14:30 AW (Rec: 06/10/20 18:00 AW [email or web address]) Hip Strength Hip Manual Muscle Testing Right Flexion (L2) 4 Good Extension (S1) 3+ Fair+ Abduction 4- Good- External Rotation 4+ Good+ Internal Rotation 4+ Good+ Left Flexion (L2) 4 Good Extension (S1) 3+ Fair+ Abduction 4- Good- External Rotation 4+ Good+ Internal Rotation 4+ Good+ Knee Strength Knee Manual Muscle Testing Right Flexion (S2) 4 Good Extension (L3) 5 Normal Left Flexion (S2) 4 Good Extension (L3) 5 Normal Ankle/Foot Strength Ankle and Foot Manual Muscle Testing Right Dorsiflexion (L4) 4+ Good+ Plantarflexion (S1) 4- Good- Left Dorsiflexion (L4) 4+ Good+ Plantarflexion (S1) 4- Good- Toe Strength Toe Manual Muscle Testing Right Great Toe Extension 4- Good- Comments Left great toe extension 4+/5 PT-OP-T Assessment and Plan Start: 06/10/20 14:36 Freq: Status: Active Protocol: Document 06/10/20 14:30 AW (Rec: 06/10/20 18:13 AW [email or web address]) Physical Therapy Assessment Rehab Potential Rehabilitation Potential Fair Evaluation Complexity Number of Personal Factors/Comorbidities 1-2 Number of Body Systems Impaired 1-2 Clinical Presentation at Evaluation Stable Impairments Impairments Activity Tolerance,Balance, Functional Activities, Functional Mobility,Gait,Pain, Posture,ROM,Sensation,Soft Tissue Mobility,Strength Goals Five Impairment ROM [employer] Good[employer] Machine Operator Goal (LTG) Pt will be able to don shoes and socks without shoe horn and without increase in baseline pain level. LTG Duration 3 months - 09/10/20 Four Impairment unable to particpate in recreational activities [facility]dc Goal (LTG) Pt will complete 9 holes of golf without increase in baseline pain level LTG Duration 3 months - 09/10/20 Three Impairment medium risk of chronicity Paper Goods Machine Operator Goal (LTG) Pt will score 3 or less total on STarT Back tool to demonstrate decreased likelihood of chronicity and catastrophization. LTG Duration 3 months - 09/10/20 Two Impairment balance Short Term Goal (STG) Pt will improve SLS from table at height of 24 bilaterally to demonstrate improved BLE strength and stabilty STG Duration 6 weeks - 07/22/20 Fdc Goal (LTG) Pt will improve SLS from table at height of 22 bilaterally to demonstrate improved BLE strength and stabilty LTG Duration 3 months - 09/10/20 One Impairment Pt lacks appropriate exercise program Short Term Goal (STG) Pt will be independent with [facility] for support of therapy services provided in clinic STG Duration 6 weeks - 07/22/20 Assessment Summary Assessment Hugo is a 70 yo man who presents to outpatient PT with complaints of low back pain, bilateral hip pain (right worse than left), and dull sensation in bilateral feet. He had TLIF L3-S1 on 04/22/20 which was his third lumbar surgery. Pt has flat lumbar spine typical of swayback posture. Pain and postural impairments are affecting gait and pt's ability to participate in self-care and recreational activities. Pt will benefit from skilled PT to address strength, posture, and range of motion deficts for improved quality of life and to mitigate risks of immobility. Physical Therapy Plan Frequency and Duration Frequency of Treatment 2x/Week Duration of Treatment 3 months Plan of Care Start Date 06/10/20 Plan of Care End Date 09/10/20 Therapeutic Interventions Therapeutic Interventions Balance Training,Gait Training ,Home Exercise Program,Joint Mobilizations,Manual Therapy, Neuromuscular Re-education, Patient/Caregiver Education, Self-Care/Home Management,Soft Tissue Mobilization,Taping, Therapeutic Activities, Therapeutic Exercises Modalities Cold Pack/Ice Massage,Electric Stimulation,Hot Packs Next Visit Focus/Plan Next Note Type Treatment Note Next Visit Plan initiate lumbar ROM
--- NOTE | 2020-06-10 18:15 | PT.OPPOC ---
Physical, Occupational & Speech Therapy At [facility] Current Diagnoses Spondylolisthesis, lumbar region (06/10/20) Spinal stenosis, lumbar region without neurogenic claudication (06/10/20) Postlaminectomy syndrome, not elsewhere classified (06/10/20) Difficulty in walking, not elsewhere classified (06/10/20) Abnormal posture (06/10/20) Visit Care Team Role Provider Type Lito Powell MD Family Provider Physician Primary Care Provider Specialty: Internal Medicine Address: [address] [place] [address], [id number] Email: [email or web address] Juan M Garvey MD Attending Provider Physician Referring Provider Specialty: Orthopedic Surgery Address: [address] [place] [address], [address] Email: [email or web address] Plan Of Care PT-OP-T Assessment and Plan Start: 06/10/20 14:36 Freq: Status: Active Protocol: Document 06/10/20 14:30 AW (Rec: 06/10/20 18:13 AW [email or web address]) Physical Therapy Assessment Rehab Potential Rehabilitation Potential Fair Evaluation Complexity Number of Personal Factors/Comorbidities 1-2 Number of Body Systems Impaired 1-2 Clinical Presentation at Evaluation Stable Impairments Impairments Activity Tolerance,Balance, Functional Activities, Functional Mobility,Gait,Pain, Posture,ROM,Sensation,Soft Tissue Mobility,Strength Goals Five Impairment ROM [facility] Goal (LTG) Pt will be able to don shoes and socks without shoe horn and without increase in baseline pain level. LTG Duration 3 months - 09/10/20 Four Impairment unable to particpate in recreational activities Reworker Goal (LTG) Pt will complete 9 holes of golf without increase in baseline pain level LTG Duration 3 months - 09/10/20 Three Impairment medium risk of chronicity Reworker Goal (LTG) Pt will score 3 or less total on STarT Back tool to demonstrate decreased likelihood of chronicity and catastrophization. LTG Duration 3 months - 09/10/20 Two Impairment balance Short Term Goal (STG) Pt will improve SLS from table at height of 24 bilaterally to demonstrate improved BLE strength and stabilty STG Duration 6 weeks - 07/22/20 [facility] Goal (LTG) Pt will improve SLS from table at height of 22 bilaterally to demonstrate improved BLE strength and stabilty LTG Duration 3 months - 09/10/20 One Impairment Pt lacks appropriate exercise program Short Term Goal (STG) Pt will be independent with [facility] for support of therapy services provided in clinic STG Duration 6 weeks - 07/22/20 Assessment Summary Assessment Hugo is a 70 yo man who presents to outpatient PT with complaints of low back pain, bilateral hip pain (right worse than left), and dull sensation in bilateral feet. He had TLIF L3-S1 on 04/22/20 which was his third lumbar surgery. Pt has flat lumbar spine typical of swayback posture. Pain and postural impairments are affecting gait and pt's ability to participate in self-care and recreational activities. Pt will benefit from skilled PT to address strength, posture, and range of motion deficts for improved quality of life and to mitigate risks of immobility. Physical Therapy Plan Frequency and Duration Frequency of Treatment 2x/Week Duration of Treatment 3 months Plan of Care Start Date 06/10/20 Plan of Care End Date 09/10/20 Therapeutic Interventions Therapeutic Interventions Balance Training,Gait Training ,Home Exercise Program,Joint Mobilizations,Manual Therapy, Neuromuscular Re-education, Patient/Caregiver Education, Self-Care/Home Management,Soft Tissue Mobilization,Taping, Therapeutic Activities, Therapeutic Exercises Modalities Cold Pack/Ice Massage,Electric Stimulation,Hot Packs Next Visit Focus/Plan Next Note Type Treatment Note Next Visit Plan initiate lumbar ROM Plan of Care Dates Plan of Care Start Date 06/10/20 Plan of Care End Date 09/10/20 Electronically Signed by: Otilia Henson PT 06/10/20 [id number] Please Sign and Return: I have reviewed this Plan of Care and certify that the skilled therapy services above are required to meet the patient?s needs. Physician Signature Date Printed Name and Credentials Clinical Instructor Signature Printed Name and Credentials
--- NOTE | 2020-06-12 15:35 | PT.OTN ---
Current Diagnoses Spondylolisthesis, lumbar region (06/12/20) Spinal stenosis, lumbar region without neurogenic claudication (06/12/20) Postlaminectomy syndrome, not elsewhere classified (06/12/20) Difficulty in walking, not elsewhere classified (06/12/20) Abnormal posture (06/12/20) Physical Therapy Treatment Note PT-OP-A Visit Information Start: 06/10/20 14:36 Freq: Status: Active Protocol: Document 06/12/20 14:38 HH (Rec: 06/12/20 15:35 HH [id number]) Out-Patient Physical Therapy Visit Information Visit Information Visit Type Treatment Note Visit Start Time 14:34 Visit Stop Time 15:15 Total Visit Minutes 41 Visit Number 2 Number of SITE PLANNER Visits 0 PT-OP-B Current Condition Start: 06/10/20 14:36 Freq: Status: Active Protocol: Document 06/10/20 14:30 AW (Rec: 06/10/20 15:22 AW [id number]) Current Condition History of Current Condition Onset Date years Current Complaints LBP, BLE pain (left worse than right) History of Current Condition Pt has had three lumbar surgeries. The first was 20 years ago - a laminotomy which provided relief for ~10 years . Second surgery 10 years ago was laminectomy which provided relief for a while. He started to have pain again about a year ago and had TLIF two months ago. He's been trying to take it easy since surgery. He complains he is unable to walk or stand >10 min due to pain which he describes as stiffness. He is unable to bend far enough to comfortably reach his feet, interfering with dressing and other self-care tasks. He also has pain in his hips after sitting more than 10 minutes. When he gets up from resting position, he tends to walk in bent-forward position at first. Pt also reports numbness or dull light touch sensation in bilateral feet which he says is getting better little by little since surgery. Prior Treatments and Tests - April 2020: L3-S1 TLIF, L2 -3 hemilami - Prior PT for back pain Future Testing and Treatments Planned None identified Treatment Goals Patient/Caregiver Goals Pt would like to get back to golf in a few months. Have ROM to be able to don shoes/socks more easily, be able to lift 40 pounds, and generally increase BLE strength. Prior Functional Status Baseline Function- ADL's Independent Baseline Function- Mobility Independent Baseline Function- Gait no AD except in the one week following surgery Baseline Function- Work/School Pt is retired. 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 Needs to use a shoe horn Functional Limitations- Mobility/Gait Antalgic. Pt ambulates with significant R trunk rotation and R lateral lean. Also demonstrates steppage gait R>L for clearance of right foot. Functional Limitations- Recreation/ Unable to participate in golf. Hobbies Functional Limitations- Other Unable to lift more than light grocery bags without pain. PT-OP-C Subjective Start: 06/10/20 14:36 Freq: Status: Active Protocol: Document 06/12/20 14:38 HH (Rec: 06/12/20 15:35 HH [id number]) OP-PT Subjective Patient Comments Patient Comments Im pretty stiff pretty much PT-OP-D Balance Start: 06/10/20 14:36 Freq: Status: Active Protocol: Document 06/10/20 14:30 AW (Rec: 06/10/20 17:51 AW [email or web address]) OP-PT Balance Assessment Sitting Balance Static Sitting Balance Ability Good Dynamic Sitting Balance Ability Good Standing Balance Static Standing Balance Ability Fair Dynamic Standing Balance Ability Fair Device Used no AD Standing Balance Comments SLS R and L equal on multiple trials: 8 sec, 6 sec, 8 sec Balance Tests Single Limb Standing Single Limb- Right 8,6,8 Single Limb- Left 8,8,6 Mccann Fall Scale Copyright Permission PT-OP-E Functional Tests Start: 06/10/20 14:36 Freq: Status: Active Protocol: Document 06/10/20 14:30 AW (Rec: 06/10/20 18:01 AW [email or web address]) Functional Tests Single Leg Squat Test Score from 26.5 mat table bilaterally PT-OP-F Manual Assessment Start: 06/10/20 14:36 Freq: Status: Active Protocol: Document 06/10/20 14:30 AW (Rec: 06/10/20 17:51 AW [email or web address]) Manual Assessments Soft Tissue Assessment Soft Tissue Mobility Assessment Significant tone bilateral lumbar paraspinals PT-OP-G Mobility & Gait Start: 06/10/20 14:36 Freq: Status: Active Protocol: Document 06/10/20 14:30 AW (Rec: 06/10/20 17:51 AW [email or web address]) OP Mobility Evaluation Transfers Sit to Stand (+) nikki's sign on multiple observed attempts OP Gait Assessment Gait Gait Assistance Required: Independent Distance (Feet) 200 Assistive Devices Assistive Device None Gait Deviations General Gait Pattern Antalgic,Decreased Stride Length,Decreased Feet Clearance,Lateral Trunk Lean Factors Limiting Gait Function Factors Limiting Gait Function Decreased Activity Tolerance, Decreased Sensation,Decreased Strength,Limited Range of Motion,Pain,Poor Balance Comments Gait Comments Antalgic gait notable for increased trunk rotation to the right and right lateral lean. High steppage gait R>L to compensate for reduced foot clearance. PT-OP-H Neuro Start: 06/10/20 14:36 Freq: Status: Active Protocol: Document 06/10/20 14:30 AW (Rec: 06/10/20 17:51 AW [email or web address]) Sensation Evaluation Gross Sensation Gross Sensation Left LE Impaired,Right LE Impaired Sensation Description Numbness,Tingling Dermatome Impairments L5 Deep Tendon Reflex & Clonus Assessment Deep Tendon Reflex Bilateral Achilles Deep Tendon Reflex 0 Absent Bilateral Patellar Deep Tendon Reflex 2+ Normal PT-OP-J Posture/Palpation/Skin Start: 06/10/20 14:36 Freq: Status: Active Protocol: Document 06/10/20 14:30 AW (Rec: 06/10/20 17:51 AW [email or web address]) Posture Evaluation Comments Posture Comments Swayback with flat lumbar spine. Notable hinge at TL junction 2/2 hardware. PT-OP-K Range of Motion Start: 06/10/20 14:36 Freq: Status: Active Protocol: Document 06/10/20 14:30 AW (Rec: 06/10/20 18:00 AW [email or web address]) Lumbar Spine Range of Motion Lumbar Spine Active Degrees Testing Position Standing Flexion 35 Extension 8 ROM Limitations Soft Tissue Tightness,Pain Comments Side bending with fingertips 14 from the floor bilaterally . Rotation ~25% bilaterally. Hip Goniometric Range of Motion Hip ROM Limitations Comments B hip ROM WNL except IR <15 degrees. PT-OP-L Special Tests Start: 06/10/20 14:36 Freq: Status: Active Protocol: Document 06/10/20 14:30 AW (Rec: 06/10/20 18:00 AW [email or web address]) Special Tests Hip Special Tests Scour Test Test Results right hip positive for pain reproduction PT-OP-M Strength Start: 06/10/20 14:36 Freq: Status: Active Protocol: Document 06/10/20 14:30 AW (Rec: 06/10/20 18:00 AW [email or web address]) Hip Strength Hip Manual Muscle Testing Right Flexion (L2) 4 Good Extension (S1) 3+ Fair+ Abduction 4- Good- External Rotation 4+ Good+ Internal Rotation 4+ Good+ Left Flexion (L2) 4 Good Extension (S1) 3+ Fair+ Abduction 4- Good- External Rotation 4+ Good+ Internal Rotation 4+ Good+ Knee Strength Knee Manual Muscle Testing Right Flexion (S2) 4 Good Extension (L3) 5 Normal Left Flexion (S2) 4 Good Extension (L3) 5 Normal Ankle/Foot Strength Ankle and Foot Manual Muscle Testing Right Dorsiflexion (L4) 4+ Good+ Plantarflexion (S1) 4- Good- Left Dorsiflexion (L4) 4+ Good+ Plantarflexion (S1) 4- Good- Toe Strength Toe Manual Muscle Testing Right Great Toe Extension 4- Good- Comments Left great toe extension 4+/5 PT-OP-Q Treatments Start: 06/10/20 14:36 Freq: Status: Active Protocol: Document 06/12/20 14:38 HH (Rec: 06/12/20 15:35 HH [id number]) Therapeutic Exercises Supine Exercises piriformis stretch Side bilateral Reps/Minutes 15 sec PSLR Side bilateral Equipment Used with bed sheet tennis ball release Supine Exercise Name at SIJ piriformis Side bilateral Comments for hep Manual Therapy Treatment Soft Tissue Mobilization gluteal Mobilization Type Sustained Pressure,Trigger Point Release Intensity/Depth Moderate Body Position Sidelying Comments significant soreness at B gluteal muscles and piriformis PT-OP-T Assessment and Plan Start: 06/10/20 14:36 Freq: Status: Active Protocol: Document 06/12/20 14:38 HH (Rec: 06/12/20 15:35 HH [id number]) Physical Therapy Assessment Goals Five Impairment ROM Android Ui Developer Goal (LTG) Pt will be able to don shoes and socks without shoe horn and without increase in baseline pain level. LTG Duration 3 months - 09/10/20 Four Impairment unable to particpate in recreational activities Halfway Goal (LTG) Pt will complete 9 holes of golf without increase in baseline pain level LTG Duration 3 months - 09/10/20 Three Impairment medium risk of chronicity Android Ui Developer Goal (LTG) Pt will score 3 or less total on STarT Back tool to demonstrate decreased likelihood of chronicity and catastrophization. LTG Duration 3 months - 09/10/20 Two Impairment balance Short Term Goal (STG) Pt will improve SLS from table at height of 24 bilaterally to demonstrate improved BLE strength and stabilty STG Duration 6 weeks - 07/22/20 Halfway Goal (LTG) Pt will improve SLS from table at height of 22 bilaterally to demonstrate improved BLE strength and stabilty LTG Duration 3 months - 09/10/20 One Impairment Pt lacks appropriate exercise program Short Term Goal (STG) Pt will be independent with HEP for support of therapy services provided in clinic STG Duration 6 weeks - 07/22/20 Assessment Summary Assessment Pt has very limited hip mobility and his gait is basically lack of degrees of freedom. PSLR R= 50, L = 55. Provided pt with hamstrings stretch, figure 4 stretch and piriformis stretch for HEP. Physical Therapy Plan Frequency and Duration Frequency of Treatment 2x/Week Duration of Treatment 3 months Plan of Care Start Date 06/10/20 Plan of Care End Date 09/10/20 Next Visit Focus/Plan Next Note Type Treatment Note Next Visit Plan initiate lumbar ROM hip mobility trunk stabilization LE strengthening
--- NOTE | 2020-06-17 17:03 | PT.OTN ---
Current Diagnoses Spondylolisthesis, lumbar region (06/17/20) Spinal stenosis, lumbar region without neurogenic claudication (06/17/20) Postlaminectomy syndrome, not elsewhere classified (06/17/20) Difficulty in walking, not elsewhere classified (06/17/20) Abnormal posture (06/17/20) Physical Therapy Treatment Note PT-OP-A Visit Information Start: 06/10/20 14:36 Freq: Status: Active Protocol: Document 06/17/20 14:32 AW (Rec: 06/17/20 17:03 AW [email or web address]) Out-Patient Physical Therapy Visit Information Visit Information Visit Type Treatment Note Visit Start Time 14:30 Visit Stop Time 15:15 Total Visit Minutes 45 Visit Number 3 Number of [employer] Visits 0 Evaluation Information Evaluation Date 06/10/20 PT-OP-B Current Condition Start: 06/10/20 14:36 Freq: Status: Active Protocol: Document 06/10/20 14:30 AW (Rec: 06/10/20 15:22 AW [id number]) Current Condition History of Current Condition Onset Date years Current Complaints LBP, BLE pain (left worse than right) History of Current Condition Pt has had three lumbar surgeries. The first was 20 years ago - a laminotomy which provided relief for ~10 years . Second surgery 10 years ago was laminectomy which provided relief for a while. He started to have pain again about a year ago and had TLIF two months ago. He's been trying to take it easy since surgery. He complains he is unable to walk or stand >10 min due to pain which he describes as stiffness. He is unable to bend far enough to comfortably reach his feet, interfering with dressing and other self-care tasks. He also has pain in his hips after sitting more than 10 minutes. When he gets up from resting position, he tends to walk in bent-forward position at first. Pt also reports numbness or dull light touch sensation in bilateral feet which he says is getting better little by little since surgery. Prior Treatments and Tests - April 2020: L3-S1 TLIF, L2 -3 hemilami - Prior PT for back pain Future Testing and Treatments Planned None identified Treatment Goals Patient/Caregiver Goals Pt would like to get back to golf in a few months. Have ROM to be able to don shoes/socks more easily, be able to lift 40 pounds, and generally increase BLE strength. Prior Functional Status Baseline Function- ADL's Independent Baseline Function- Mobility Independent Baseline Function- Gait no AD except in the one week following surgery Baseline Function- Work/School Pt is retired. 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 Needs to use a shoe horn Functional Limitations- Mobility/Gait Antalgic. Pt ambulates with significant R trunk rotation and R lateral lean. Also demonstrates steppage gait R>L for clearance of right foot. Functional Limitations- Recreation/ Unable to participate in golf. Hobbies Functional Limitations- Other Unable to lift more than light grocery bags without pain. PT-OP-C Subjective Start: 06/10/20 14:36 Freq: Status: Active Protocol: Document 06/17/20 14:32 AW (Rec: 06/17/20 17:03 AW [email or web address]) OP-PT Subjective Patient Comments Patient Comments I'm not just concerned about the pain in my back. I'm also really unsteady and I think it 's because I'm so weak. PT-OP-D Balance Start: 06/10/20 14:36 Freq: Status: Active Protocol: Document 06/10/20 14:30 AW (Rec: 06/10/20 17:51 AW [email or web address]) OP-PT Balance Assessment Sitting Balance Static Sitting Balance Ability Good Dynamic Sitting Balance Ability Good Standing Balance Static Standing Balance Ability Fair Dynamic Standing Balance Ability Fair Device Used no AD Standing Balance Comments SLS R and L equal on multiple trials: 8 sec, 6 sec, 8 sec Balance Tests Single Limb Standing Single Limb- Right 8,6,8 Single Limb- Left 8,8,6 Mccann Fall Scale Copyright Permission PT-OP-E Functional Tests Start: 06/10/20 14:36 Freq: Status: Active Protocol: Document 06/10/20 14:30 AW (Rec: 06/10/20 18:01 AW [email or web address]) Functional Tests Single Leg Squat Test Score from 26.5 mat table bilaterally PT-OP-F Manual Assessment Start: 06/10/20 14:36 Freq: Status: Active Protocol: Document 06/10/20 14:30 AW (Rec: 06/10/20 17:51 AW [email or web address]) Manual Assessments Soft Tissue Assessment Soft Tissue Mobility Assessment Significant tone bilateral lumbar paraspinals PT-OP-G Mobility & Gait Start: 06/10/20 14:36 Freq: Status: Active Protocol: Document 06/10/20 14:30 AW (Rec: 06/10/20 17:51 AW [email or web address]) OP Mobility Evaluation Transfers Sit to Stand (+) nikki's sign on multiple observed attempts OP Gait Assessment Gait Gait Assistance Required: Independent Distance (Feet) 200 Assistive Devices Assistive Device None Gait Deviations General Gait Pattern Antalgic,Decreased Stride Length,Decreased Feet Clearance,Lateral Trunk Lean Factors Limiting Gait Function Factors Limiting Gait Function Decreased Activity Tolerance, Decreased Sensation,Decreased Strength,Limited Range of Motion,Pain,Poor Balance Comments Gait Comments Antalgic gait notable for increased trunk rotation to the right and right lateral lean. High steppage gait R>L to compensate for reduced foot clearance. PT-OP-H Neuro Start: 06/10/20 14:36 Freq: Status: Active Protocol: Document 06/10/20 14:30 AW (Rec: 06/10/20 17:51 AW [email or web address]) Sensation Evaluation Gross Sensation Gross Sensation Left LE Impaired,Right LE Impaired Sensation Description Numbness,Tingling Dermatome Impairments L5 Deep Tendon Reflex & Clonus Assessment Deep Tendon Reflex Bilateral Achilles Deep Tendon Reflex 0 Absent Bilateral Patellar Deep Tendon Reflex 2+ Normal PT-OP-J Posture/Palpation/Skin Start: 06/10/20 14:36 Freq: Status: Active Protocol: Document 06/10/20 14:30 AW (Rec: 06/10/20 17:51 AW [email or web address]) Posture Evaluation Comments Posture Comments Swayback with flat lumbar spine. Notable hinge at TL junction 2/2 hardware. PT-OP-K Range of Motion Start: 06/10/20 14:36 Freq: Status: Active Protocol: Document 06/10/20 14:30 AW (Rec: 06/10/20 18:00 AW [email or web address]) Lumbar Spine Range of Motion Lumbar Spine Active Degrees Testing Position Standing Flexion 35 Extension 8 ROM Limitations Soft Tissue Tightness,Pain Comments Side bending with fingertips 14 from the floor bilaterally . Rotation ~25% bilaterally. Hip Goniometric Range of Motion Hip ROM Limitations Comments B hip ROM WNL except IR <15 degrees. PT-OP-L Special Tests Start: 06/10/20 14:36 Freq: Status: Active Protocol: Document 06/10/20 14:30 AW (Rec: 06/10/20 18:00 AW [email or web address]) Special Tests Hip Special Tests Scour Test Test Results right hip positive for pain reproduction PT-OP-M Strength Start: 06/10/20 14:36 Freq: Status: Active Protocol: Document 06/10/20 14:30 AW (Rec: 06/10/20 18:00 AW [email or web address]) Hip Strength Hip Manual Muscle Testing Right Flexion (L2) 4 Good Extension (S1) 3+ Fair+ Abduction 4- Good- External Rotation 4+ Good+ Internal Rotation 4+ Good+ Left Flexion (L2) 4 Good Extension (S1) 3+ Fair+ Abduction 4- Good- External Rotation 4+ Good+ Internal Rotation 4+ Good+ Knee Strength Knee Manual Muscle Testing Right Flexion (S2) 4 Good Extension (L3) 5 Normal Left Flexion (S2) 4 Good Extension (L3) 5 Normal Ankle/Foot Strength Ankle and Foot Manual Muscle Testing Right Dorsiflexion (L4) 4+ Good+ Plantarflexion (S1) 4- Good- Left Dorsiflexion (L4) 4+ Good+ Plantarflexion (S1) 4- Good- Toe Strength Toe Manual Muscle Testing Right Great Toe Extension 4- Good- Comments Left great toe extension 4+/5 PT-OP-Q Treatments Start: 06/10/20 14:36 Freq: Status: Active Protocol: Document 06/17/20 14:32 AW (Rec: 06/17/20 15:15 AW [id number]) Therapeutic Exercises Supine Exercises TrA awareness Supine Exercise Name bent knee fallout Side bilateral Reps/Minutes x10 glute sets Supine Exercise Name glute sets Side bilateral Reps/Minutes 5SH x15 quad sets Supine Exercise Name quad sets Side bilateral Reps/Minutes 5SH x15 piriformis stretch Side bilateral Reps/Minutes 15 sec x 5 Comments more restricted right side PSLR Side bilateral Equipment Used with bed sheet Manual Therapy Treatment Soft Tissue Mobilization gluteal Mobilization Type Sustained Pressure,Trigger Point Release Intensity/Depth Moderate Body Position Sidelying Comments significant soreness at B gluteal muscles and piriformis PT-OP-T Assessment and Plan Start: 06/10/20 14:36 Freq: Status: Active Protocol: Document 06/17/20 14:32 AW (Rec: 06/17/20 17:03 AW [email or web address]) Physical Therapy Assessment Goals Five Impairment ROM Longterm Goal (LTG) Pt will be able to don shoes and socks without shoe horn and without increase in baseline pain level. LTG Duration 3 months - 09/10/20 Four Impairment unable to particpate in recreational activities Longterm Goal (LTG) Pt will complete 9 holes of golf without increase in baseline pain level LTG Duration 3 months - 09/10/20 Three Impairment medium risk of chronicity Roof Bolter Operator Goal (LTG) Pt will score 3 or less total on STarT Back tool to demonstrate decreased likelihood of chronicity and catastrophization. LTG Duration 3 months - 09/10/20 Two Impairment balance Short Term Goal (STG) Pt will improve SLS from table at height of 24 bilaterally to demonstrate improved BLE strength and stabilty STG Duration 6 weeks - 07/22/20 Roof Bolter Operator Goal (LTG) Pt will improve SLS from table at height of 22 bilaterally to demonstrate improved BLE strength and stabilty LTG Duration 3 months - 09/10/20 One Impairment Pt lacks appropriate exercise program Short Term Goal (STG) Pt will be independent with HEP for support of therapy services provided in clinic STG Duration 6 weeks - 07/22/20 Assessment Summary Assessment Reviewed HEP with cues for form and awareness of pelvic tile. Added quad sets and glute sets to begin addressing BLE weakness. Physical Therapy Plan Frequency and Duration Frequency of Treatment 2x/Week Duration of Treatment 3 months Plan of Care Start Date 06/10/20 Plan of Care End Date 09/10/20 Therapeutic Interventions Therapeutic Interventions Balance Training,Gait Training ,Home Exercise Program,Joint Mobilizations,Manual Therapy, Neuromuscular Re-education, Patient/Caregiver Education, Self-Care/Home Management,Soft Tissue Mobilization,Taping, Therapeutic Activities, Therapeutic Exercises Modalities Cold Pack/Ice Massage,Electric Stimulation,Hot Packs Next Visit Focus/Plan Next Note Type Treatment Note Next Visit Plan hip mobility trunk stabilization LE strengthening
--- NOTE | 2020-06-19 13:48 | PT.OTN ---
Current Diagnoses Spondylolisthesis, lumbar region (06/19/20) Spinal stenosis, lumbar region without neurogenic claudication (06/19/20) Postlaminectomy syndrome, not elsewhere classified (06/19/20) Difficulty in walking, not elsewhere classified (06/19/20) Abnormal posture (06/19/20) Physical Therapy Treatment Note PT-OP-A Visit Information Start: 06/10/20 14:36 Freq: Status: Active Protocol: Document 06/19/20 12:58 HH (Rec: 06/19/20 13:48 HH [id number]) Out-Patient Physical Therapy Visit Information Visit Information Visit Type Treatment Note Visit Start Time 13:00 Visit Stop Time 13:45 Total Visit Minutes 45 Visit Number 4 Number of TABLE ASSEMBLER METAL Visits 0 PT-OP-B Current Condition Start: 06/10/20 14:36 Freq: Status: Active Protocol: Document 06/10/20 14:30 AW (Rec: 06/10/20 15:22 AW [id number]) Current Condition History of Current Condition Onset Date years Current Complaints LBP, BLE pain (left worse than right) History of Current Condition Pt has had three lumbar surgeries. The first was 20 years ago - a laminotomy which provided relief for ~10 years . Second surgery 10 years ago was laminectomy which provided relief for a while. He started to have pain again about a year ago and had TLIF two months ago. He's been trying to take it easy since surgery. He complains he is unable to walk or stand >10 min due to pain which he describes as stiffness. He is unable to bend far enough to comfortably reach his feet, interfering with dressing and other self-care tasks. He also has pain in his hips after sitting more than 10 minutes. When he gets up from resting position, he tends to walk in bent-forward position at first. Pt also reports numbness or dull light touch sensation in bilateral feet which he says is getting better little by little since surgery. Prior Treatments and Tests - April 2020: L3-S1 TLIF, L2 -3 hemilami - Prior PT for back pain Future Testing and Treatments Planned None identified Treatment Goals Patient/Caregiver Goals Pt would like to get back to golf in a few months. Have ROM to be able to don shoes/socks more easily, be able to lift 40 pounds, and generally increase BLE strength. Prior Functional Status Baseline Function- ADL's Independent Baseline Function- Mobility Independent Baseline Function- Gait no AD except in the one week following surgery Baseline Function- Work/School Pt is retired. 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 Needs to use a shoe horn Functional Limitations- Mobility/Gait Antalgic. Pt ambulates with significant R trunk rotation and R lateral lean. Also demonstrates steppage gait R>L for clearance of right foot. Functional Limitations- Recreation/ Unable to participate in golf. Hobbies Functional Limitations- Other Unable to lift more than light grocery bags without pain. PT-OP-C Subjective Start: 06/10/20 14:36 Freq: Status: Active Protocol: Document 06/19/20 12:58 HH (Rec: 06/19/20 13:48 HH [id number]) OP-PT Subjective Patient Comments Patient Comments I was very sore after last visit and i had trouble sleeping that night. I just couldnt get comfortable. I am better today. PT-OP-D Balance Start: 06/10/20 14:36 Freq: Status: Active Protocol: Document 06/10/20 14:30 AW (Rec: 06/10/20 17:51 AW [email or web address]) OP-PT Balance Assessment Sitting Balance Static Sitting Balance Ability Good Dynamic Sitting Balance Ability Good Standing Balance Static Standing Balance Ability Fair Dynamic Standing Balance Ability Fair Device Used no AD Standing Balance Comments SLS R and L equal on multiple trials: 8 sec, 6 sec, 8 sec Balance Tests Single Limb Standing Single Limb- Right 8,6,8 Single Limb- Left 8,8,6 Mccann Fall Scale Copyright Permission PT-OP-E Functional Tests Start: 06/10/20 14:36 Freq: Status: Active Protocol: Document 06/10/20 14:30 AW (Rec: 06/10/20 18:01 AW [email or web address]) Functional Tests Single Leg Squat Test Score from 26.5 mat table bilaterally PT-OP-F Manual Assessment Start: 06/10/20 14:36 Freq: Status: Active Protocol: Document 06/10/20 14:30 AW (Rec: 06/10/20 17:51 AW [email or web address]) Manual Assessments Soft Tissue Assessment Soft Tissue Mobility Assessment Significant tone bilateral lumbar paraspinals PT-OP-G Mobility & Gait Start: 06/10/20 14:36 Freq: Status: Active Protocol: Document 06/10/20 14:30 AW (Rec: 06/10/20 17:51 AW [email or web address]) OP Mobility Evaluation Transfers Sit to Stand (+) nikki's sign on multiple observed attempts OP Gait Assessment Gait Gait Assistance Required: Independent Distance (Feet) 200 Assistive Devices Assistive Device None Gait Deviations General Gait Pattern Antalgic,Decreased Stride Length,Decreased Feet Clearance,Lateral Trunk Lean Factors Limiting Gait Function Factors Limiting Gait Function Decreased Activity Tolerance, Decreased Sensation,Decreased Strength,Limited Range of Motion,Pain,Poor Balance Comments Gait Comments Antalgic gait notable for increased trunk rotation to the right and right lateral lean. High steppage gait R>L to compensate for reduced foot clearance. PT-OP-H Neuro Start: 06/10/20 14:36 Freq: Status: Active Protocol: Document 06/10/20 14:30 AW (Rec: 06/10/20 17:51 AW [email or web address]) Sensation Evaluation Gross Sensation Gross Sensation Left LE Impaired,Right LE Impaired Sensation Description Numbness,Tingling Dermatome Impairments L5 Deep Tendon Reflex & Clonus Assessment Deep Tendon Reflex Bilateral Achilles Deep Tendon Reflex 0 Absent Bilateral Patellar Deep Tendon Reflex 2+ Normal PT-OP-J Posture/Palpation/Skin Start: 06/10/20 14:36 Freq: Status: Active Protocol: Document 06/10/20 14:30 AW (Rec: 06/10/20 17:51 AW [email or web address]) Posture Evaluation Comments Posture Comments Swayback with flat lumbar spine. Notable hinge at TL junction 2/2 hardware. PT-OP-K Range of Motion Start: 06/10/20 14:36 Freq: Status: Active Protocol: Document 06/10/20 14:30 AW (Rec: 06/10/20 18:00 AW [email or web address]) Lumbar Spine Range of Motion Lumbar Spine Active Degrees Testing Position Standing Flexion 35 Extension 8 ROM Limitations Soft Tissue Tightness,Pain Comments Side bending with fingertips 14 from the floor bilaterally . Rotation ~25% bilaterally. Hip Goniometric Range of Motion Hip ROM Limitations Comments B hip ROM WNL except IR <15 degrees. PT-OP-L Special Tests Start: 06/10/20 14:36 Freq: Status: Active Protocol: Document 06/10/20 14:30 AW (Rec: 06/10/20 18:00 AW [email or web address]) Special Tests Hip Special Tests Scour Test Test Results right hip positive for pain reproduction PT-OP-M Strength Start: 06/10/20 14:36 Freq: Status: Active Protocol: Document 06/10/20 14:30 AW (Rec: 06/10/20 18:00 AW [email or web address]) Hip Strength Hip Manual Muscle Testing Right Flexion (L2) 4 Good Extension (S1) 3+ Fair+ Abduction 4- Good- External Rotation 4+ Good+ Internal Rotation 4+ Good+ Left Flexion (L2) 4 Good Extension (S1) 3+ Fair+ Abduction 4- Good- External Rotation 4+ Good+ Internal Rotation 4+ Good+ Knee Strength Knee Manual Muscle Testing Right Flexion (S2) 4 Good Extension (L3) 5 Normal Left Flexion (S2) 4 Good Extension (L3) 5 Normal Ankle/Foot Strength Ankle and Foot Manual Muscle Testing Right Dorsiflexion (L4) 4+ Good+ Plantarflexion (S1) 4- Good- Left Dorsiflexion (L4) 4+ Good+ Plantarflexion (S1) 4- Good- Toe Strength Toe Manual Muscle Testing Right Great Toe Extension 4- Good- Comments Left great toe extension 4+/5 PT-OP-Q Treatments Start: 06/10/20 14:36 Freq: Status: Active Protocol: Document 06/19/20 12:58 HH (Rec: 06/19/20 13:48 HH [id number]) Cardio Equipment Recumbent Stepper (Sci-Fit) Duration (Minutes) 8 Resistance 2.5 Gym Equipment Shuttle Recovery SL squat Resistance #37 Shuttle Recovery Platform Stable Reps/Time 8-12 Therapeutic Exercises Supine Exercises bridging Side bilateral Reps/Minutes 8x2 Comments buttocks lift off slightly LTR Side bilateral Reps/Minutes 20times pelvic tllt Reps/Minutes 8 x2 sec x2 sets Comments improved control this session glute sets Supine Exercise Name glute sets Side bilateral Reps/Minutes 5SH x15 quad sets Supine Exercise Name quad sets Side bilateral Reps/Minutes 5SH x15 piriformis stretch Side bilateral Reps/Minutes 15 sec x 5 Comments more restricted right side PT-OP-T Assessment and Plan Start: 06/10/20 14:36 Freq: Status: Active Protocol: Document 06/19/20 12:58 (Rec: 06/19/20 13:48 [id number]) Physical Therapy Assessment Goals Five Impairment ROM [place] Goal (LTG) Pt will be able to don shoes and socks without shoe horn and without increase in baseline pain level. LTG Duration 3 months - 09/10/20 Four Impairment unable to particpate in recreational activities Assisted Goal (LTG) Pt will complete 9 holes of golf without increase in baseline pain level LTG Duration 3 months - 09/10/20 Three Impairment medium risk of chronicity [place] Goal (LTG) Pt will score 3 or less total on STarT Back tool to demonstrate decreased likelihood of chronicity and catastrophization. LTG Duration 3 months - 09/10/20 Two Impairment balance Short Term Goal (STG) Pt will improve SLS from table at height of 24 bilaterally to demonstrate improved BLE strength and stabilty STG Duration 6 weeks - 07/22/20 [place] Goal (LTG) Pt will improve SLS from table at height of 22 bilaterally to demonstrate improved BLE strength and stabilty LTG Duration 3 months - 09/10/20 One Impairment Pt lacks appropriate exercise program Short Term Goal (STG) Pt will be independent with [facility] for support of therapy services provided in clinic STG Duration 6 weeks - 07/22/20 Assessment Summary Assessment This session focused on lumbar AROM, hip mobility and LE strengthening. Pt jeri session well without increaesd discomfort. Physical Therapy Plan Frequency and Duration Frequency of Treatment 2x/Week Duration of Treatment 3 months Plan of Care Start Date 06/10/20 Plan of Care End Date 09/10/20 Next Visit Focus/Plan Next Note Type Treatment Note Next Visit Plan hip mobility trunk stabilization LE strengthening
--- NOTE | 2020-06-24 16:29 | PT.OTN ---
Current Diagnoses Spondylolisthesis, lumbar region (06/24/20) Spinal stenosis, lumbar region without neurogenic claudication (06/24/20) Postlaminectomy syndrome, not elsewhere classified (06/24/20) Difficulty in walking, not elsewhere classified (06/24/20) Abnormal posture (06/24/20) Physical Therapy Treatment Note PT-OP-A Visit Information Start: 06/10/20 14:36 Freq: Status: Active Protocol: Document 06/24/20 13:45 AW (Rec: 06/24/20 16:29 AW [email or web address]) Out-Patient Physical Therapy Visit Information Visit Information Visit Type Treatment Note Visit Start Time 13:45 Visit Stop Time 14:30 Total Visit Minutes 45 Visit Number 5 Number of COMPUTER REPAIR ENGINEER Visits 0 PT-OP-B Current Condition Start: 06/10/20 14:36 Freq: Status: Active Protocol: Document 06/10/20 14:30 AW (Rec: 06/10/20 15:22 AW [id number]) Current Condition History of Current Condition Onset Date years Current Complaints LBP, BLE pain (left worse than right) History of Current Condition Pt has had three lumbar surgeries. The first was 20 years ago - a laminotomy which provided relief for ~10 years . Second surgery 10 years ago was laminectomy which provided relief for a while. He started to have pain again about a year ago and had TLIF two months ago. He's been trying to take it easy since surgery. He complains he is unable to walk or stand >10 min due to pain which he describes as stiffness. He is unable to bend far enough to comfortably reach his feet, interfering with dressing and other self-care tasks. He also has pain in his hips after sitting more than 10 minutes. When he gets up from resting position, he tends to walk in bent-forward position at first. Pt also reports numbness or dull light touch sensation in bilateral feet which he says is getting better little by little since surgery. Prior Treatments and Tests - April 2020: L3-S1 TLIF, L2 -3 hemilami - Prior PT for back pain Future Testing and Treatments Planned None identified Treatment Goals Patient/Caregiver Goals Pt would like to get back to golf in a few months. Have ROM to be able to don shoes/socks more easily, be able to lift 40 pounds, and generally increase BLE strength. Prior Functional Status Baseline Function- ADL's Independent Baseline Function- Mobility Independent Baseline Function- Gait no AD except in the one week following surgery Baseline Function- Work/School Pt is retired. 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 Needs to use a shoe horn Functional Limitations- Mobility/Gait Antalgic. Pt ambulates with significant R trunk rotation and R lateral lean. Also demonstrates steppage gait R>L for clearance of right foot. Functional Limitations- Recreation/ Unable to participate in golf. Hobbies Functional Limitations- Other Unable to lift more than light grocery bags without pain. PT-OP-C Subjective Start: 06/10/20 14:36 Freq: Status: Active Protocol: Document 06/24/20 13:45 AW (Rec: 06/24/20 16:29 AW [email or web address]) OP-PT Subjective Patient Comments Patient Comments I felt ok after last visit. I 'm actually feeling pretty good today. PT-OP-D Balance Start: 06/10/20 14:36 Freq: Status: Active Protocol: Document 06/10/20 14:30 AW (Rec: 06/10/20 17:51 AW [email or web address]) OP-PT Balance Assessment Sitting Balance Static Sitting Balance Ability Good Dynamic Sitting Balance Ability Good Standing Balance Static Standing Balance Ability Fair Dynamic Standing Balance Ability Fair Device Used no AD Standing Balance Comments SLS R and L equal on multiple trials: 8 sec, 6 sec, 8 sec Balance Tests Single Limb Standing Single Limb- Right 8,6,8 Single Limb- Left 8,8,6 Mccann Fall Scale Copyright Permission PT-OP-E Functional Tests Start: 06/10/20 14:36 Freq: Status: Active Protocol: Document 06/10/20 14:30 AW (Rec: 06/10/20 18:01 AW [email or web address]) Functional Tests Single Leg Squat Test Score from 26.5 mat table bilaterally PT-OP-F Manual Assessment Start: 06/10/20 14:36 Freq: Status: Active Protocol: Document 06/10/20 14:30 AW (Rec: 06/10/20 17:51 AW [email or web address]) Manual Assessments Soft Tissue Assessment Soft Tissue Mobility Assessment Significant tone bilateral lumbar paraspinals PT-OP-G Mobility & Gait Start: 06/10/20 14:36 Freq: Status: Active Protocol: Document 06/10/20 14:30 AW (Rec: 06/10/20 17:51 AW [email or web address]) OP Mobility Evaluation Transfers Sit to Stand (+) nikki's sign on multiple observed attempts OP Gait Assessment Gait Gait Assistance Required: Independent Distance (Feet) 200 Assistive Devices Assistive Device None Gait Deviations General Gait Pattern Antalgic,Decreased Stride Length,Decreased Feet Clearance,Lateral Trunk Lean Factors Limiting Gait Function Factors Limiting Gait Function Decreased Activity Tolerance, Decreased Sensation,Decreased Strength,Limited Range of Motion,Pain,Poor Balance Comments Gait Comments Antalgic gait notable for increased trunk rotation to the right and right lateral lean. High steppage gait R>L to compensate for reduced foot clearance. PT-OP-H Neuro Start: 06/10/20 14:36 Freq: Status: Active Protocol: Document 06/10/20 14:30 AW (Rec: 06/10/20 17:51 AW [email or web address]) Sensation Evaluation Gross Sensation Gross Sensation Left LE Impaired,Right LE Impaired Sensation Description Numbness,Tingling Dermatome Impairments L5 Deep Tendon Reflex & Clonus Assessment Deep Tendon Reflex Bilateral Achilles Deep Tendon Reflex 0 Absent Bilateral Patellar Deep Tendon Reflex 2+ Normal PT-OP-J Posture/Palpation/Skin Start: 06/10/20 14:36 Freq: Status: Active Protocol: Document 06/10/20 14:30 AW (Rec: 06/10/20 17:51 AW [email or web address]) Posture Evaluation Comments Posture Comments Swayback with flat lumbar spine. Notable hinge at TL junction 2/2 hardware. PT-OP-K Range of Motion Start: 06/10/20 14:36 Freq: Status: Active Protocol: Document 06/10/20 14:30 AW (Rec: 06/10/20 18:00 AW [email or web address]) Lumbar Spine Range of Motion Lumbar Spine Active Degrees Testing Position Standing Flexion 35 Extension 8 ROM Limitations Soft Tissue Tightness,Pain Comments Side bending with fingertips 14 from the floor bilaterally . Rotation ~25% bilaterally. Hip Goniometric Range of Motion Hip ROM Limitations Comments B hip ROM WNL except IR <15 degrees. PT-OP-L Special Tests Start: 06/10/20 14:36 Freq: Status: Active Protocol: Document 06/10/20 14:30 AW (Rec: 06/10/20 18:00 AW [email or web address]) Special Tests Hip Special Tests Scour Test Test Results right hip positive for pain reproduction PT-OP-M Strength Start: 06/10/20 14:36 Freq: Status: Active Protocol: Document 06/10/20 14:30 AW (Rec: 06/10/20 18:00 AW [email or web address]) Hip Strength Hip Manual Muscle Testing Right Flexion (L2) 4 Good Extension (S1) 3+ Fair+ Abduction 4- Good- External Rotation 4+ Good+ Internal Rotation 4+ Good+ Left Flexion (L2) 4 Good Extension (S1) 3+ Fair+ Abduction 4- Good- External Rotation 4+ Good+ Internal Rotation 4+ Good+ Knee Strength Knee Manual Muscle Testing Right Flexion (S2) 4 Good Extension (L3) 5 Normal Left Flexion (S2) 4 Good Extension (L3) 5 Normal Ankle/Foot Strength Ankle and Foot Manual Muscle Testing Right Dorsiflexion (L4) 4+ Good+ Plantarflexion (S1) 4- Good- Left Dorsiflexion (L4) 4+ Good+ Plantarflexion (S1) 4- Good- Toe Strength Toe Manual Muscle Testing Right Great Toe Extension 4- Good- Comments Left great toe extension 4+/5 PT-OP-Q Treatments Start: 06/10/20 14:36 Freq: Status: Active Protocol: Document 06/24/20 13:45 AW (Rec: 06/24/20 14:30 AW [id number]) Cardio Equipment Recumbent Stepper (Sci-Fit) Duration (Minutes) 8 Resistance 2.5 Seat Position 12 Gym Equipment Shuttle Recovery Bilateral Squats Resistance 50# Shuttle Recovery Platform Stable Therapeutic Exercises Supine Exercises Asher test stretch Supine Exercise Name Asher test stretch Side bilateral Equipment Used 30 SH x 1 Comments poorly tolerated SKTC Supine Exercise Name SKTC Side bilateral Reps/Minutes 30 SH x 2 hip abduction Supine Exercise Name abd/ER Side bilateral Resistance level 1 Equipment Used TB Reps/Minutes 10 x 2 hip adduction Supine Exercise Name hip adduction Side bilateral Equipment Used blue ball Reps/Minutes 10 x 2 bridging Side bilateral Reps/Minutes 8 x 4 Comments clearance improved; 1 set with add; 1 set with abd glute sets Supine Exercise Name glute sets Side bilateral Reps/Minutes 5SH x15 PSLR Side bilateral Equipment Used with gait belt PT-OP-T Assessment and Plan Start: 06/10/20 14:36 Freq: Status: Active Protocol: Document 06/24/20 13:45 AW (Rec: 06/24/20 16:29 AW [email or web address]) Physical Therapy Assessment Goals Five Impairment ROM [place] Goal (LTG) Pt will be able to don shoes and socks without shoe horn and without increase in baseline pain level. LTG Duration 3 months - 09/10/20 Four Impairment unable to particpate in recreational activities [place] Goal (LTG) Pt will complete 9 holes of golf without increase in baseline pain level LTG Duration 3 months - 09/10/20 Three Impairment medium risk of chronicity Poultry Buyer Goal (LTG) Pt will score 3 or less total on STarT Back tool to demonstrate decreased likelihood of chronicity and catastrophization. LTG Duration 3 months - 09/10/20 Two Impairment balance Short Term Goal (STG) Pt will improve SLS from table at height of 24 bilaterally to demonstrate improved BLE strength and stabilty STG Duration 6 weeks - 07/22/20 Poultry Buyer Goal (LTG) Pt will improve SLS from table at height of 22 bilaterally to demonstrate improved BLE strength and stabilty LTG Duration 3 months - 09/10/20 One Impairment Pt lacks appropriate exercise program Short Term Goal (STG) Pt will be independent with [facility] for support of therapy services provided in clinic STG Duration 6 weeks - 07/22/20 Assessment Summary Assessment Pt tolerated increase in exercise load today with no complaint of increased pain. He remains significantly limited in hip mobility and strength. Physical Therapy Plan Frequency and Duration Frequency of Treatment 2x/Week Duration of Treatment 3 months Plan of Care Start Date 06/10/20 Plan of Care End Date 09/10/20 Therapeutic Interventions Therapeutic Interventions Balance Training,Gait Training ,Home Exercise Program,Joint Mobilizations,Manual Therapy, Neuromuscular Re-education, Patient/Caregiver Education, Self-Care/Home Management,Soft Tissue Mobilization,Taping, Therapeutic Activities, Therapeutic Exercises Modalities Cold Pack/Ice Massage,Electric Stimulation,Hot Packs Next Visit Focus/Plan Next Note Type Treatment Note Next Visit Plan hip mobility trunk stabilization LE strengthening
--- NOTE | 2020-06-26 15:39 | PT.OTN ---
Current Diagnoses Spondylolisthesis, lumbar region (06/26/20) Spinal stenosis, lumbar region without neurogenic claudication (06/26/20) Postlaminectomy syndrome, not elsewhere classified (06/26/20) Difficulty in walking, not elsewhere classified (06/26/20) Abnormal posture (06/26/20) Physical Therapy Treatment Note PT-OP-A Visit Information Start: 06/10/20 14:36 Freq: Status: Active Protocol: Document 06/26/20 13:02 HH (Rec: 06/26/20 15:39 HH [id number]) Out-Patient Physical Therapy Visit Information Visit Information Visit Type Treatment Note Visit Start Time 13:02 Visit Stop Time 13:45 Total Visit Minutes 43 Visit Number 6 Number of STOREROOM KEEPER Visits 0 PT-OP-B Current Condition Start: 06/10/20 14:36 Freq: Status: Active Protocol: Document 06/10/20 14:30 AW (Rec: 06/10/20 15:22 AW [id number]) Current Condition History of Current Condition Onset Date years Current Complaints LBP, BLE pain (left worse than right) History of Current Condition Pt has had three lumbar surgeries. The first was 20 years ago - a laminotomy which provided relief for ~10 years . Second surgery 10 years ago was laminectomy which provided relief for a while. He started to have pain again about a year ago and had TLIF two months ago. He's been trying to take it easy since surgery. He complains he is unable to walk or stand >10 min due to pain which he describes as stiffness. He is unable to bend far enough to comfortably reach his feet, interfering with dressing and other self-care tasks. He also has pain in his hips after sitting more than 10 minutes. When he gets up from resting position, he tends to walk in bent-forward position at first. Pt also reports numbness or dull light touch sensation in bilateral feet which he says is getting better little by little since surgery. Prior Treatments and Tests - April 2020: L3-S1 TLIF, L2 -3 hemilami - Prior PT for back pain Future Testing and Treatments Planned None identified Treatment Goals Patient/Caregiver Goals Pt would like to get back to golf in a few months. Have ROM to be able to don shoes/socks more easily, be able to lift 40 pounds, and generally increase BLE strength. Prior Functional Status Baseline Function- ADL's Independent Baseline Function- Mobility Independent Baseline Function- Gait no AD except in the one week following surgery Baseline Function- Work/School Pt is retired. 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 Needs to use a shoe horn Functional Limitations- Mobility/Gait Antalgic. Pt ambulates with significant R trunk rotation and R lateral lean. Also demonstrates steppage gait R>L for clearance of right foot. Functional Limitations- Recreation/ Unable to participate in golf. Hobbies Functional Limitations- Other Unable to lift more than light grocery bags without pain. PT-OP-C Subjective Start: 06/10/20 14:36 Freq: Status: Active Protocol: Document 06/26/20 13:02 HH (Rec: 06/26/20 15:39 HH [id number]) OP-PT Subjective Patient Comments Patient Comments I was pretty good yesterday but im stiffer today. But overall, i think im getting better little by little Patient Reported Progress Improving PT-OP-D Balance Start: 06/10/20 14:36 Freq: Status: Active Protocol: Document 06/10/20 14:30 AW (Rec: 06/10/20 17:51 AW [email or web address]) OP-PT Balance Assessment Sitting Balance Static Sitting Balance Ability Good Dynamic Sitting Balance Ability Good Standing Balance Static Standing Balance Ability Fair Dynamic Standing Balance Ability Fair Device Used no AD Standing Balance Comments SLS R and L equal on multiple trials: 8 sec, 6 sec, 8 sec Balance Tests Single Limb Standing Single Limb- Right 8,6,8 Single Limb- Left 8,8,6 Mccann Fall Scale Copyright Permission PT-OP-E Functional Tests Start: 06/10/20 14:36 Freq: Status: Active Protocol: Document 06/10/20 14:30 AW (Rec: 06/10/20 18:01 AW [email or web address]) Functional Tests Single Leg Squat Test Score from 26.5 mat table bilaterally PT-OP-F Manual Assessment Start: 06/10/20 14:36 Freq: Status: Active Protocol: Document 06/10/20 14:30 AW (Rec: 06/10/20 17:51 AW [email or web address]) Manual Assessments Soft Tissue Assessment Soft Tissue Mobility Assessment Significant tone bilateral lumbar paraspinals PT-OP-G Mobility & Gait Start: 06/10/20 14:36 Freq: Status: Active Protocol: Document 06/10/20 14:30 AW (Rec: 06/10/20 17:51 AW [email or web address]) OP Mobility Evaluation Transfers Sit to Stand (+) nikki's sign on multiple observed attempts OP Gait Assessment Gait Gait Assistance Required: Independent Distance (Feet) 200 Assistive Devices Assistive Device None Gait Deviations General Gait Pattern Antalgic,Decreased Stride Length,Decreased Feet Clearance,Lateral Trunk Lean Factors Limiting Gait Function Factors Limiting Gait Function Decreased Activity Tolerance, Decreased Sensation,Decreased Strength,Limited Range of Motion,Pain,Poor Balance Comments Gait Comments Antalgic gait notable for increased trunk rotation to the right and right lateral lean. High steppage gait R>L to compensate for reduced foot clearance. PT-OP-H Neuro Start: 06/10/20 14:36 Freq: Status: Active Protocol: Document 06/10/20 14:30 AW (Rec: 06/10/20 17:51 AW [email or web address]) Sensation Evaluation Gross Sensation Gross Sensation Left LE Impaired,Right LE Impaired Sensation Description Numbness,Tingling Dermatome Impairments L5 Deep Tendon Reflex & Clonus Assessment Deep Tendon Reflex Bilateral Achilles Deep Tendon Reflex 0 Absent Bilateral Patellar Deep Tendon Reflex 2+ Normal PT-OP-J Posture/Palpation/Skin Start: 06/10/20 14:36 Freq: Status: Active Protocol: Document 06/10/20 14:30 AW (Rec: 06/10/20 17:51 AW [email or web address]) Posture Evaluation Comments Posture Comments Swayback with flat lumbar spine. Notable hinge at TL junction 2/2 hardware. PT-OP-K Range of Motion Start: 06/10/20 14:36 Freq: Status: Active Protocol: Document 06/10/20 14:30 AW (Rec: 06/10/20 18:00 AW [email or web address]) Lumbar Spine Range of Motion Lumbar Spine Active Degrees Testing Position Standing Flexion 35 Extension 8 ROM Limitations Soft Tissue Tightness,Pain Comments Side bending with fingertips 14 from the floor bilaterally . Rotation ~25% bilaterally. Hip Goniometric Range of Motion Hip ROM Limitations Comments B hip ROM WNL except IR <15 degrees. PT-OP-L Special Tests Start: 06/10/20 14:36 Freq: Status: Active Protocol: Document 06/10/20 14:30 AW (Rec: 06/10/20 18:00 AW [email or web address]) Special Tests Hip Special Tests Scour Test Test Results right hip positive for pain reproduction PT-OP-M Strength Start: 06/10/20 14:36 Freq: Status: Active Protocol: Document 06/10/20 14:30 AW (Rec: 06/10/20 18:00 AW [email or web address]) Hip Strength Hip Manual Muscle Testing Right Flexion (L2) 4 Good Extension (S1) 3+ Fair+ Abduction 4- Good- External Rotation 4+ Good+ Internal Rotation 4+ Good+ Left Flexion (L2) 4 Good Extension (S1) 3+ Fair+ Abduction 4- Good- External Rotation 4+ Good+ Internal Rotation 4+ Good+ Knee Strength Knee Manual Muscle Testing Right Flexion (S2) 4 Good Extension (L3) 5 Normal Left Flexion (S2) 4 Good Extension (L3) 5 Normal Ankle/Foot Strength Ankle and Foot Manual Muscle Testing Right Dorsiflexion (L4) 4+ Good+ Plantarflexion (S1) 4- Good- Left Dorsiflexion (L4) 4+ Good+ Plantarflexion (S1) 4- Good- Toe Strength Toe Manual Muscle Testing Right Great Toe Extension 4- Good- Comments Left great toe extension 4+/5 PT-OP-Q Treatments Start: 06/10/20 14:36 Freq: Status: Active Protocol: Document 06/26/20 13:02 HH (Rec: 06/26/20 15:39 HH [id number]) Cardio Equipment Recumbent Stepper (Sci-Fit) Duration (Minutes) 8 Resistance 2.5 Seat Position 12 Gym Equipment Shuttle Recovery Bilateral Squats Resistance 67# Shuttle Recovery Platform Stable SL squat Resistance #37 Shuttle Recovery Platform Stable Reps/Time 8-12 Therapeutic Exercises Supine Exercises Asher test stretch Supine Exercise Name Asher test stretch Side bilateral Equipment Used 30 SH x 1 Comments better tolerance this time SKTC Supine Exercise Name SKTC Side bilateral Reps/Minutes 30 SH x 2 hip abduction Supine Exercise Name abd/ER Side bilateral Resistance level 1 Equipment Used TB Reps/Minutes 10 x 2 bridging Side bilateral Reps/Minutes 8 x 4 Comments with abd , full bridge noted. piriformis stretch Side bilateral Reps/Minutes 15 sec x 5 Comments more restricted right side PSLR Side bilateral Equipment Used with gait belt PT-OP-T Assessment and Plan Start: 06/10/20 14:36 Freq: Status: Active Protocol: Document 06/26/20 13:02 (Rec: 06/26/20 15:39 [id number]) Physical Therapy Assessment Goals Five Impairment ROM [facility] Goal (LTG) Pt will be able to don shoes and socks without shoe horn and without increase in baseline pain level. LTG Duration 3 months - 09/10/20 Four Impairment unable to particpate in recreational activities [facility] Goal (LTG) Pt will complete 9 holes of golf without increase in baseline pain level LTG Duration 3 months - 09/10/20 Three Impairment medium risk of chronicity [facility] Goal (LTG) Pt will score 3 or less total on STarT Back tool to demonstrate decreased likelihood of chronicity and catastrophization. LTG Duration 3 months - 09/10/20 Two Impairment balance Short Term Goal (STG) Pt will improve SLS from table at height of 24 bilaterally to demonstrate improved BLE strength and stabilty STG Duration 6 weeks - 07/22/20 [facility] Goal (LTG) Pt will improve SLS from table at height of 22 bilaterally to demonstrate improved BLE strength and stabilty LTG Duration 3 months - 09/10/20 One Impairment Pt lacks appropriate exercise program Short Term Goal (STG) Pt will be independent with [facility] for support of therapy services provided in clinic STG Duration 6 weeks - 07/22/20 Assessment Summary Assessment Pt jeri session well with no increase in discomfort. Pt noticed his stretches has been helping him to be more mobile . Physical Therapy Plan Frequency and Duration Frequency of Treatment 2x/Week Duration of Treatment 3 months Plan of Care Start Date 06/10/20 Plan of Care End Date 09/10/20 Therapeutic Interventions Therapeutic Interventions Balance Training,Gait Training ,Home Exercise Program,Joint Mobilizations,Manual Therapy, Neuromuscular Re-education, Patient/Caregiver Education, Self-Care/Home Management,Soft Tissue Mobilization,Taping, Therapeutic Activities, Therapeutic Exercises Modalities Cold Pack/Ice Massage,Electric Stimulation,Hot Packs Next Visit Focus/Plan Next Note Type Treatment Note Next Visit Plan hip mobility trunk stabilization LE strengthening hip flexors stretch
--- NOTE | 2020-07-01 15:26 | PT.OTN ---
Current Diagnoses Spondylolisthesis, lumbar region (07/01/20) Spinal stenosis, lumbar region without neurogenic claudication (07/01/20) Postlaminectomy syndrome, not elsewhere classified (07/01/20) Difficulty in walking, not elsewhere classified (07/01/20) Abnormal posture (07/01/20) Physical Therapy Treatment Note PT-OP-A Visit Information Start: 06/10/20 14:36 Freq: Status: Active Protocol: Document 07/01/20 13:45 AW (Rec: 07/01/20 14:27 AW [id number]) Out-Patient Physical Therapy Visit Information Visit Information Visit Type Treatment Note Visit Start Time 13:45 Visit Stop Time 14:30 Total Visit Minutes 45 Visit Number 7 Number of SHEET HEATER HELPER Visits 0 PT-OP-B Current Condition Start: 06/10/20 14:36 Freq: Status: Active Protocol: Document 06/10/20 14:30 AW (Rec: 06/10/20 15:22 AW [id number]) Current Condition History of Current Condition Onset Date years Current Complaints LBP, BLE pain (left worse than right) History of Current Condition Pt has had three lumbar surgeries. The first was 20 years ago - a laminotomy which provided relief for ~10 years . Second surgery 10 years ago was laminectomy which provided relief for a while. He started to have pain again about a year ago and had TLIF two months ago. He's been trying to take it easy since surgery. He complains he is unable to walk or stand >10 min due to pain which he describes as stiffness. He is unable to bend far enough to comfortably reach his feet, interfering with dressing and other self-care tasks. He also has pain in his hips after sitting more than 10 minutes. When he gets up from resting position, he tends to walk in bent-forward position at first. Pt also reports numbness or dull light touch sensation in bilateral feet which he says is getting better little by little since surgery. Prior Treatments and Tests - April 2020: L3-S1 TLIF, L2 -3 hemilami - Prior PT for back pain Future Testing and Treatments Planned None identified Treatment Goals Patient/Caregiver Goals Pt would like to get back to golf in a few months. Have ROM to be able to don shoes/socks more easily, be able to lift 40 pounds, and generally increase BLE strength. Prior Functional Status Baseline Function- ADL's Independent Baseline Function- Mobility Independent Baseline Function- Gait no AD except in the one week following surgery Baseline Function- Work/School Pt is retired. 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 Needs to use a shoe horn Functional Limitations- Mobility/Gait Antalgic. Pt ambulates with significant R trunk rotation and R lateral lean. Also demonstrates steppage gait R>L for clearance of right foot. Functional Limitations- Recreation/ Unable to participate in golf. Hobbies Functional Limitations- Other Unable to lift more than light grocery bags without pain. PT-OP-C Subjective Start: 06/10/20 14:36 Freq: Status: Active Protocol: Document 07/01/20 13:45 AW (Rec: 07/01/20 14:27 AW [id number]) OP-PT Subjective Patient Comments Patient Comments I still think I'm improving overall. Happy to report my granddaughter was born yesterday. Patient Reported Progress Improving PT-OP-D Balance Start: 06/10/20 14:36 Freq: Status: Active Protocol: Document 06/10/20 14:30 AW (Rec: 06/10/20 17:51 AW [email or web address]) OP-PT Balance Assessment Sitting Balance Static Sitting Balance Ability Good Dynamic Sitting Balance Ability Good Standing Balance Static Standing Balance Ability Fair Dynamic Standing Balance Ability Fair Device Used no AD Standing Balance Comments SLS R and L equal on multiple trials: 8 sec, 6 sec, 8 sec Balance Tests Single Limb Standing Single Limb- Right 8,6,8 Single Limb- Left 8,8,6 Mccann Fall Scale Copyright Permission PT-OP-E Functional Tests Start: 06/10/20 14:36 Freq: Status: Active Protocol: Document 06/10/20 14:30 AW (Rec: 06/10/20 18:01 AW [email or web address]) Functional Tests Single Leg Squat Test Score from 26.5 mat table bilaterally PT-OP-F Manual Assessment Start: 06/10/20 14:36 Freq: Status: Active Protocol: Document 06/10/20 14:30 AW (Rec: 06/10/20 17:51 AW [email or web address]) Manual Assessments Soft Tissue Assessment Soft Tissue Mobility Assessment Significant tone bilateral lumbar paraspinals PT-OP-G Mobility & Gait Start: 06/10/20 14:36 Freq: Status: Active Protocol: Document 06/10/20 14:30 AW (Rec: 06/10/20 17:51 AW [email or web address]) OP Mobility Evaluation Transfers Sit to Stand (+) nikki's sign on multiple observed attempts OP Gait Assessment Gait Gait Assistance Required: Independent Distance (Feet) 200 Assistive Devices Assistive Device None Gait Deviations General Gait Pattern Antalgic,Decreased Stride Length,Decreased Feet Clearance,Lateral Trunk Lean Factors Limiting Gait Function Factors Limiting Gait Function Decreased Activity Tolerance, Decreased Sensation,Decreased Strength,Limited Range of Motion,Pain,Poor Balance Comments Gait Comments Antalgic gait notable for increased trunk rotation to the right and right lateral lean. High steppage gait R>L to compensate for reduced foot clearance. PT-OP-H Neuro Start: 06/10/20 14:36 Freq: Status: Active Protocol: Document 06/10/20 14:30 AW (Rec: 06/10/20 17:51 AW [email or web address]) Sensation Evaluation Gross Sensation Gross Sensation Left LE Impaired,Right LE Impaired Sensation Description Numbness,Tingling Dermatome Impairments L5 Deep Tendon Reflex & Clonus Assessment Deep Tendon Reflex Bilateral Achilles Deep Tendon Reflex 0 Absent Bilateral Patellar Deep Tendon Reflex 2+ Normal PT-OP-J Posture/Palpation/Skin Start: 06/10/20 14:36 Freq: Status: Active Protocol: Document 06/10/20 14:30 AW (Rec: 06/10/20 17:51 AW [email or web address]) Posture Evaluation Comments Posture Comments Swayback with flat lumbar spine. Notable hinge at TL junction 2/2 hardware. PT-OP-K Range of Motion Start: 06/10/20 14:36 Freq: Status: Active Protocol: Document 06/10/20 14:30 AW (Rec: 06/10/20 18:00 AW [email or web address]) Lumbar Spine Range of Motion Lumbar Spine Active Degrees Testing Position Standing Flexion 35 Extension 8 ROM Limitations Soft Tissue Tightness,Pain Comments Side bending with fingertips 14 from the floor bilaterally . Rotation ~25% bilaterally. Hip Goniometric Range of Motion Hip ROM Limitations Comments B hip ROM WNL except IR <15 degrees. PT-OP-L Special Tests Start: 06/10/20 14:36 Freq: Status: Active Protocol: Document 06/10/20 14:30 AW (Rec: 06/10/20 18:00 AW [email or web address]) Special Tests Hip Special Tests Scour Test Test Results right hip positive for pain reproduction PT-OP-M Strength Start: 06/10/20 14:36 Freq: Status: Active Protocol: Document 06/10/20 14:30 AW (Rec: 06/10/20 18:00 AW [email or web address]) Hip Strength Hip Manual Muscle Testing Right Flexion (L2) 4 Good Extension (S1) 3+ Fair+ Abduction 4- Good- External Rotation 4+ Good+ Internal Rotation 4+ Good+ Left Flexion (L2) 4 Good Extension (S1) 3+ Fair+ Abduction 4- Good- External Rotation 4+ Good+ Internal Rotation 4+ Good+ Knee Strength Knee Manual Muscle Testing Right Flexion (S2) 4 Good Extension (L3) 5 Normal Left Flexion (S2) 4 Good Extension (L3) 5 Normal Ankle/Foot Strength Ankle and Foot Manual Muscle Testing Right Dorsiflexion (L4) 4+ Good+ Plantarflexion (S1) 4- Good- Left Dorsiflexion (L4) 4+ Good+ Plantarflexion (S1) 4- Good- Toe Strength Toe Manual Muscle Testing Right Great Toe Extension 4- Good- Comments Left great toe extension 4+/5 PT-OP-Q Treatments Start: 06/10/20 14:36 Freq: Status: Active Protocol: Document 07/01/20 13:45 AW (Rec: 07/01/20 14:27 AW [id number]) Cardio Equipment Recumbent Bicycle Duration (Minutes) 8 Resistance 5 Seat Position 7 Therapeutic Exercises Supine Exercises Asher test stretch Supine Exercise Name Asher test stretch Side bilateral Equipment Used 30 SH x 1 Comments better tolerance this time hip abduction Supine Exercise Name abd/ER Side bilateral Resistance level 2 Equipment Used TB Reps/Minutes 10 x 2 hip adduction Supine Exercise Name hip adduction Side bilateral Equipment Used blue ball Reps/Minutes 10 x 2 bridging Side bilateral Reps/Minutes 12 x 3 Comments with band for abd LTR Supine Exercise Name with theraball 45 cm Side bilateral Reps/Minutes x10 Comments cued PPT Sidelying Exercises clamshell Sidelying Exercise Name clamshell Side bilateral Reps/Minutes x8 Comments cued neutral pelvis open book Sidelying Exercise Name open book Side bilateral Reps/Minutes x8 PT-OP-T Assessment and Plan Start: 06/10/20 14:36 Freq: Status: Active Protocol: Document 07/01/20 13:45 AW (Rec: 07/01/20 15:26 AW [email or web address]) Physical Therapy Assessment Goals Five Impairment ROM [facility] Goal (LTG) Pt will be able to don shoes and socks without shoe horn and without increase in baseline pain level. LTG Duration 3 months - 09/10/20 Four Impairment unable to particpate in recreational activities [facility] Goal (LTG) Pt will complete 9 holes of golf without increase in baseline pain level LTG Duration 3 months - 09/10/20 Three Impairment medium risk of chronicity [facility] Goal (LTG) Pt will score 3 or less total on STarT Back tool to demonstrate decreased likelihood of chronicity and catastrophization. LTG Duration 3 months - 09/10/20 Two Impairment balance Short Term Goal (STG) Pt will improve SLS from table at height of 24 bilaterally to demonstrate improved BLE strength and stabilty STG Duration 6 weeks - 07/22/20 Neuropsychologist Goal (LTG) Pt will improve SLS from table at height of 22 bilaterally to demonstrate improved BLE strength and stabilty LTG Duration 3 months - 09/10/20 One Impairment Pt lacks appropriate exercise program Short Term Goal (STG) Pt will be independent with [facility] for support of therapy services provided in clinic STG Duration 6 weeks - 07/22/20 Assessment Summary Assessment Pt is progressing slowly. Shows good effort with all activities and notes improvement in stiffness overall. Physical Therapy Plan Frequency and Duration Frequency of Treatment 2x/Week Duration of Treatment 3 months Plan of Care Start Date 06/10/20 Plan of Care End Date 09/10/20 Therapeutic Interventions Therapeutic Interventions Balance Training,Gait Training ,Home Exercise Program,Joint Mobilizations,Manual Therapy, Neuromuscular Re-education, Patient/Caregiver Education, Self-Care/Home Management,Soft Tissue Mobilization,Taping, Therapeutic Activities, Therapeutic Exercises Modalities Cold Pack/Ice Massage,Electric Stimulation,Hot Packs Next Visit Focus/Plan Next Note Type Treatment Note Next Visit Plan hip mobility trunk stabilization LE strengthening hip flexors stretch
--- NOTE | 2020-07-03 13:47 | PT.OTN ---
Current Diagnoses Spondylolisthesis, lumbar region (07/03/20) Spinal stenosis, lumbar region without neurogenic claudication (07/03/20) Postlaminectomy syndrome, not elsewhere classified (07/03/20) Difficulty in walking, not elsewhere classified (07/03/20) Abnormal posture (07/03/20) Physical Therapy Treatment Note PT-OP-A Visit Information Start: 06/10/20 14:36 Freq: Status: Active Protocol: Document 07/03/20 12:59 HH (Rec: 07/03/20 13:47 HH [id number]) Out-Patient Physical Therapy Visit Information Visit Information Visit Type Treatment Note Visit Start Time 13:04 Visit Stop Time 13:45 Total Visit Minutes 41 Visit Number 8 Number of HAND LOOM WEAVER Visits 0 PT-OP-B Current Condition Start: 06/10/20 14:36 Freq: Status: Active Protocol: Document 06/10/20 14:30 AW (Rec: 06/10/20 15:22 AW [id number]) Current Condition History of Current Condition Onset Date years Current Complaints LBP, BLE pain (left worse than right) History of Current Condition Pt has had three lumbar surgeries. The first was 20 years ago - a laminotomy which provided relief for ~10 years . Second surgery 10 years ago was laminectomy which provided relief for a while. He started to have pain again about a year ago and had TLIF two months ago. He's been trying to take it easy since surgery. He complains he is unable to walk or stand >10 min due to pain which he describes as stiffness. He is unable to bend far enough to comfortably reach his feet, interfering with dressing and other self-care tasks. He also has pain in his hips after sitting more than 10 minutes. When he gets up from resting position, he tends to walk in bent-forward position at first. Pt also reports numbness or dull light touch sensation in bilateral feet which he says is getting better little by little since surgery. Prior Treatments and Tests - April 2020: L3-S1 TLIF, L2 -3 hemilami - Prior PT for back pain Future Testing and Treatments Planned None identified Treatment Goals Patient/Caregiver Goals Pt would like to get back to golf in a few months. Have ROM to be able to don shoes/socks more easily, be able to lift 40 pounds, and generally increase BLE strength. Prior Functional Status Baseline Function- ADL's Independent Baseline Function- Mobility Independent Baseline Function- Gait no AD except in the one week following surgery Baseline Function- Work/School Pt is retired. 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 Needs to use a shoe horn Functional Limitations- Mobility/Gait Antalgic. Pt ambulates with significant R trunk rotation and R lateral lean. Also demonstrates steppage gait R>L for clearance of right foot. Functional Limitations- Recreation/ Unable to participate in golf. Hobbies Functional Limitations- Other Unable to lift more than light grocery bags without pain. PT-OP-C Subjective Start: 06/10/20 14:36 Freq: Status: Active Protocol: Document 07/03/20 12:59 HH (Rec: 07/03/20 13:47 HH [id number]) OP-PT Subjective Patient Comments Patient Comments I feel more mobile recently. Getting in and out of bed is easier but staying in one position more than 10mins tends to give me stiffness Patient Reported Progress Improving PT-OP-D Balance Start: 06/10/20 14:36 Freq: Status: Active Protocol: Document 06/10/20 14:30 AW (Rec: 06/10/20 17:51 AW [email or web address]) OP-PT Balance Assessment Sitting Balance Static Sitting Balance Ability Good Dynamic Sitting Balance Ability Good Standing Balance Static Standing Balance Ability Fair Dynamic Standing Balance Ability Fair Device Used no AD Standing Balance Comments SLS R and L equal on multiple trials: 8 sec, 6 sec, 8 sec Balance Tests Single Limb Standing Single Limb- Right 8,6,8 Single Limb- Left 8,8,6 Mccann Fall Scale Copyright Permission PT-OP-E Functional Tests Start: 06/10/20 14:36 Freq: Status: Active Protocol: Document 06/10/20 14:30 AW (Rec: 06/10/20 18:01 AW [email or web address]) Functional Tests Single Leg Squat Test Score from 26.5 mat table bilaterally PT-OP-F Manual Assessment Start: 06/10/20 14:36 Freq: Status: Active Protocol: Document 06/10/20 14:30 AW (Rec: 03/10/21 17:51 AW [email or web address]) Manual Assessments Soft Tissue Assessment Soft Tissue Mobility Assessment Significant tone bilateral lumbar paraspinals PT-OP-G Mobility & Gait Start: 06/10/20 14:36 Freq: Status: Active Protocol: Document 06/10/20 14:30 AW (Rec: 06/10/20 17:51 AW [email or web address]) OP Mobility Evaluation Transfers Sit to Stand (+) nikki's sign on multiple observed attempts OP Gait Assessment Gait Gait Assistance Required: Independent Distance (Feet) 200 Assistive Devices Assistive Device None Gait Deviations General Gait Pattern Antalgic,Decreased Stride Length,Decreased Feet Clearance,Lateral Trunk Lean Factors Limiting Gait Function Factors Limiting Gait Function Decreased Activity Tolerance, Decreased Sensation,Decreased Strength,Limited Range of Motion,Pain,Poor Balance Comments Gait Comments Antalgic gait notable for increased trunk rotation to the right and right lateral lean. High steppage gait R>L to compensate for reduced foot clearance. PT-OP-H Neuro Start: 06/10/20 14:36 Freq: Status: Active Protocol: Document 06/10/20 14:30 AW (Rec: 06/10/20 17:51 AW [email or web address]) Sensation Evaluation Gross Sensation Gross Sensation Left LE Impaired,Right LE Impaired Sensation Description Numbness,Tingling Dermatome Impairments L5 Deep Tendon Reflex & Clonus Assessment Deep Tendon Reflex Bilateral Achilles Deep Tendon Reflex 0 Absent Bilateral Patellar Deep Tendon Reflex 2+ Normal PT-OP-J Posture/Palpation/Skin Start: 06/10/20 14:36 Freq: Status: Active Protocol: Document 06/10/20 14:30 AW (Rec: 06/10/20 17:51 AW [email or web address]) Posture Evaluation Comments Posture Comments Swayback with flat lumbar spine. Notable hinge at TL junction 2/2 hardware. PT-OP-K Range of Motion Start: 06/10/20 14:36 Freq: Status: Active Protocol: Document 06/10/20 14:30 AW (Rec: 06/10/20 18:00 AW [email or web address]) Lumbar Spine Range of Motion Lumbar Spine Active Degrees Testing Position Standing Flexion 35 Extension 8 ROM Limitations Soft Tissue Tightness,Pain Comments Side bending with fingertips 14 from the floor bilaterally . Rotation ~25% bilaterally. Hip Goniometric Range of Motion Hip ROM Limitations Comments B hip ROM WNL except IR <15 degrees. PT-OP-L Special Tests Start: 06/10/20 14:36 Freq: Status: Active Protocol: Document 06/10/20 14:30 AW (Rec: 06/10/20 18:00 AW [email or web address]) Special Tests Hip Special Tests Scour Test Test Results right hip positive for pain reproduction PT-OP-M Strength Start: 06/10/20 14:36 Freq: Status: Active Protocol: Document 06/10/20 14:30 AW (Rec: 06/10/20 18:00 AW [email or web address]) Hip Strength Hip Manual Muscle Testing Right Flexion (L2) 4 Good Extension (S1) 3+ Fair+ Abduction 4- Good- External Rotation 4+ Good+ Internal Rotation 4+ Good+ Left Flexion (L2) 4 Good Extension (S1) 3+ Fair+ Abduction 4- Good- External Rotation 4+ Good+ Internal Rotation 4+ Good+ Knee Strength Knee Manual Muscle Testing Right Flexion (S2) 4 Good Extension (L3) 5 Normal Left Flexion (S2) 4 Good Extension (L3) 5 Normal Ankle/Foot Strength Ankle and Foot Manual Muscle Testing Right Dorsiflexion (L4) 4+ Good+ Plantarflexion (S1) 4- Good- Left Dorsiflexion (L4) 4+ Good+ Plantarflexion (S1) 4- Good- Toe Strength Toe Manual Muscle Testing Right Great Toe Extension 4- Good- Comments Left great toe extension 4+/5 PT-OP-Q Treatments Start: 06/10/20 14:36 Freq: Status: Active Protocol: Document 07/03/20 12:59 HH (Rec: 07/03/20 13:47 HH [id number]) Cardio Equipment Recumbent Stepper (Sci-Fit) Duration (Minutes) 8 Resistance 2.5 Seat Position 12 Gym Equipment Shuttle Recovery SL squat Resistance #37 Shuttle Recovery Platform Stable Reps/Time 12 Therapeutic Exercises Supine Exercises supine clamshell Side bilateral Reps/Minutes 10 x2 Asher test stretch Supine Exercise Name Asher test stretch Side bilateral Equipment Used 30 SH x 1 Comments better tolerance this time bridging Side bilateral Reps/Minutes 8 x2 Comments with yellow band for abd LTR Supine Exercise Name with theraball 45 cm Side bilateral Reps/Minutes x10 Comments cued PPT piriformis stretch Side bilateral Reps/Minutes 15 sec x 5 Comments more restricted right side Standing Exercises hip hinge Standing Exercise Name cues on hip flexion Side bilateral Reps/Minutes 5 x 2 Comments min cues needed, pt shows good technique PT-OP-T Assessment and Plan Start: 06/10/20 14:36 Freq: Status: Active Protocol: Document 07/03/20 12:59 HH (Rec: 07/03/20 13:47 HH [id number]) Physical Therapy Assessment Goals Five Impairment ROM Kerrick Kleaner Operator Goal (LTG) Pt will be able to don shoes and socks without shoe horn and without increase in baseline pain level. LTG Duration 3 months - 09/10/20 Four Impairment unable to particpate in recreational activities Prison Goal (LTG) Pt will complete 9 holes of golf without increase in baseline pain level LTG Duration 3 months - 09/10/20 Three Impairment medium risk of chronicity Prison Goal (LTG) Pt will score 3 or less total on STarT Back tool to demonstrate decreased likelihood of chronicity and catastrophization. LTG Duration 3 months - 09/10/20 Two Impairment balance Short Term Goal (STG) Pt will improve SLS from table at height of 24 bilaterally to demonstrate improved BLE strength and stabilty STG Duration 6 weeks - 07/22/20 Kerrick Kleaner Operator Goal (LTG) Pt will improve SLS from table at height of 22 bilaterally to demonstrate improved BLE strength and stabilty LTG Duration 3 months - 09/10/20 One Impairment Pt lacks appropriate exercise program Short Term Goal (STG) Pt will be independent with [facility] for support of therapy services provided in clinic STG Duration 6 weeks - 07/22/20 Assessment Summary Assessment pt overall has improved hip mobility but hamstrings are still very limited. Physical Therapy Plan Frequency and Duration Frequency of Treatment 2x/Week Duration of Treatment 3 months Plan of Care Start Date 06/10/20 Plan of Care End Date 09/10/20 Next Visit Focus/Plan Next Note Type Treatment Note Next Visit Plan hip mobility trunk stabilization LE strengthening hip flexors stretch
--- NOTE | 2020-07-07 13:51 | PT.OTN ---
Current Diagnoses Spondylolisthesis, lumbar region (07/07/20) Spinal stenosis, lumbar region without neurogenic claudication (07/07/20) Postlaminectomy syndrome, not elsewhere classified (07/07/20) Difficulty in walking, not elsewhere classified (07/07/20) Abnormal posture (07/07/20) Physical Therapy Treatment Note PT-OP-A Visit Information Start: 06/10/20 14:36 Freq: Status: Active Protocol: Document 07/07/20 12:57 HH (Rec: 07/07/20 13:50 HH [id number]) Out-Patient Physical Therapy Visit Information Visit Information Visit Type Treatment Note Visit Start Time 13:01 Visit Stop Time 13:45 Total Visit Minutes 44 Visit Number 9 Number of EARTH SCIENCE TECHNICIAN Visits 0 PT-OP-B Current Condition Start: 06/10/20 14:36 Freq: Status: Active Protocol: Document 06/10/20 14:30 AW (Rec: 06/10/20 15:22 AW [id number]) Current Condition History of Current Condition Onset Date years Current Complaints LBP, BLE pain (left worse than right) History of Current Condition Pt has had three lumbar surgeries. The first was 20 years ago - a laminotomy which provided relief for ~10 years . Second surgery 10 years ago was laminectomy which provided relief for a while. He started to have pain again about a year ago and had TLIF two months ago. He's been trying to take it easy since surgery. He complains he is unable to walk or stand >10 min due to pain which he describes as stiffness. He is unable to bend far enough to comfortably reach his feet, interfering with dressing and other self-care tasks. He also has pain in his hips after sitting more than 10 minutes. When he gets up from resting position, he tends to walk in bent-forward position at first. Pt also reports numbness or dull light touch sensation in bilateral feet which he says is getting better little by little since surgery. Prior Treatments and Tests - April 2020: L3-S1 TLIF, L2 -3 hemilami - Prior PT for back pain Future Testing and Treatments Planned None identified Treatment Goals Patient/Caregiver Goals Pt would like to get back to golf in a few months. Have ROM to be able to don shoes/socks more easily, be able to lift 40 pounds, and generally increase BLE strength. Prior Functional Status Baseline Function- ADL's Independent Baseline Function- Mobility Independent Baseline Function- Gait no AD except in the one week following surgery Baseline Function- Work/School Pt is retired. 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 Needs to use a shoe horn Functional Limitations- Mobility/Gait Antalgic. Pt ambulates with significant R trunk rotation and R lateral lean. Also demonstrates steppage gait R>L for clearance of right foot. Functional Limitations- Recreation/ Unable to participate in golf. Hobbies Functional Limitations- Other Unable to lift more than light grocery bags without pain. PT-OP-C Subjective Start: 06/10/20 14:36 Freq: Status: Active Protocol: Document 07/07/20 12:57 HH (Rec: 07/07/20 13:50 HH [id number]) OP-PT Subjective Patient Comments Patient Comments Im feeling pretty good today. Qiana been able to tolerate more standing and sitting lately. Patient Reported Progress Improving PT-OP-D Balance Start: 06/10/20 14:36 Freq: Status: Active Protocol: Document 06/10/20 14:30 AW (Rec: 06/10/20 17:51 AW [email or web address]) OP-PT Balance Assessment Sitting Balance Static Sitting Balance Ability Good Dynamic Sitting Balance Ability Good Standing Balance Static Standing Balance Ability Fair Dynamic Standing Balance Ability Fair Device Used no AD Standing Balance Comments SLS R and L equal on multiple trials: 8 sec, 6 sec, 8 sec Balance Tests Single Limb Standing Single Limb- Right 8,6,8 Single Limb- Left 8,8,6 Mccann Fall Scale Copyright Permission PT-OP-E Functional Tests Start: 06/10/20 14:36 Freq: Status: Active Protocol: Document 06/10/20 14:30 AW (Rec: 06/10/20 18:01 AW [email or web address]) Functional Tests Single Leg Squat Test Score from 26.5 mat table bilaterally PT-OP-F Manual Assessment Start: 06/10/20 14:36 Freq: Status: Active Protocol: Document 06/10/20 14:30 AW (Rec: 06/10/20 17:51 AW [email or web address]) Manual Assessments Soft Tissue Assessment Soft Tissue Mobility Assessment Significant tone bilateral lumbar paraspinals PT-OP-G Mobility & Gait Start: 06/10/20 14:36 Freq: Status: Active Protocol: Document 06/10/20 14:30 AW (Rec: 06/10/20 17:51 AW [email or web address]) OP Mobility Evaluation Transfers Sit to Stand (+) nikki's sign on multiple observed attempts OP Gait Assessment Gait Gait Assistance Required: Independent Distance (Feet) 200 Assistive Devices Assistive Device None Gait Deviations General Gait Pattern Antalgic,Decreased Stride Length,Decreased Feet Clearance,Lateral Trunk Lean Factors Limiting Gait Function Factors Limiting Gait Function Decreased Activity Tolerance, Decreased Sensation,Decreased Strength,Limited Range of Motion,Pain,Poor Balance Comments Gait Comments Antalgic gait notable for increased trunk rotation to the right and right lateral lean. High steppage gait R>L to compensate for reduced foot clearance. PT-OP-H Neuro Start: 06/10/20 14:36 Freq: Status: Active Protocol: Document 06/10/20 14:30 AW (Rec: 06/10/20 17:51 AW [email or web address]) Sensation Evaluation Gross Sensation Gross Sensation Left LE Impaired,Right LE Impaired Sensation Description Numbness,Tingling Dermatome Impairments L5 Deep Tendon Reflex & Clonus Assessment Deep Tendon Reflex Bilateral Achilles Deep Tendon Reflex 0 Absent Bilateral Patellar Deep Tendon Reflex 2+ Normal PT-OP-J Posture/Palpation/Skin Start: 06/10/20 14:36 Freq: Status: Active Protocol: Document 06/10/20 14:30 AW (Rec: 06/10/20 17:51 AW [email or web address]) Posture Evaluation Comments Posture Comments Swayback with flat lumbar spine. Notable hinge at TL junction 2/2 hardware. PT-OP-K Range of Motion Start: 06/10/20 14:36 Freq: Status: Active Protocol: Document 06/10/20 14:30 AW (Rec: 06/10/20 18:00 AW [email or web address]) Lumbar Spine Range of Motion Lumbar Spine Active Degrees Testing Position Standing Flexion 35 Extension 8 ROM Limitations Soft Tissue Tightness,Pain Comments Side bending with fingertips 14 from the floor bilaterally . Rotation ~25% bilaterally. Hip Goniometric Range of Motion Hip ROM Limitations Comments B hip ROM WNL except IR <15 degrees. PT-OP-L Special Tests Start: 06/10/20 14:36 Freq: Status: Active Protocol: Document 06/10/20 14:30 AW (Rec: 06/10/20 18:00 AW [email or web address]) Special Tests Hip Special Tests Scour Test Test Results right hip positive for pain reproduction PT-OP-M Strength Start: 06/10/20 14:36 Freq: Status: Active Protocol: Document 06/10/20 14:30 AW (Rec: 06/10/20 18:00 AW [email or web address]) Hip Strength Hip Manual Muscle Testing Right Flexion (L2) 4 Good Extension (S1) 3+ Fair+ Abduction 4- Good- External Rotation 4+ Good+ Internal Rotation 4+ Good+ Left Flexion (L2) 4 Good Extension (S1) 3+ Fair+ Abduction 4- Good- External Rotation 4+ Good+ Internal Rotation 4+ Good+ Knee Strength Knee Manual Muscle Testing Right Flexion (S2) 4 Good Extension (L3) 5 Normal Left Flexion (S2) 4 Good Extension (L3) 5 Normal Ankle/Foot Strength Ankle and Foot Manual Muscle Testing Right Dorsiflexion (L4) 4+ Good+ Plantarflexion (S1) 4- Good- Left Dorsiflexion (L4) 4+ Good+ Plantarflexion (S1) 4- Good- Toe Strength Toe Manual Muscle Testing Right Great Toe Extension 4- Good- Comments Left great toe extension 4+/5 PT-OP-Q Treatments Start: 06/10/20 14:36 Freq: Status: Active Protocol: Document 07/07/20 12:57 HH (Rec: 07/07/20 13:50 HH [id number]) Cardio Equipment Recumbent Stepper (Sci-Fit) Duration (Minutes) 8 Resistance 2.5 Seat Position 11 Gym Equipment Shuttle Recovery SL squat Resistance #37, #50 Shuttle Recovery Platform Stable Reps/Time 12, 10 Therapeutic Exercises Supine Exercises supine clamshell Side bilateral Equipment Used with yellow band Reps/Minutes 10 x2 Asher test stretch Supine Exercise Name Asher test stretch Side bilateral Equipment Used 30 SH x 1 Comments better tolerance this time bridging Side bilateral Reps/Minutes 8 x2 Comments with yellow band for abd, able to reach the top. Standing Exercises hip hinge Standing Exercise Name cues on hip flexion Side bilateral Reps/Minutes 5 x 2 Comments min cues needed, pt shows good technique PT-OP-T Assessment and Plan Start: 06/10/20 14:36 Freq: Status: Active Protocol: Document 07/07/20 12:57 HH (Rec: 07/07/20 13:50 HH [id number]) Physical Therapy Assessment Goals Five Impairment ROM Correction Goal (LTG) Pt will be able to don shoes and socks without shoe horn and without increase in baseline pain level. LTG Duration 3 months - 09/10/20 Four Impairment unable to particpate in recreational activities Correction Goal (LTG) Pt will complete 9 holes of golf without increase in baseline pain level LTG Duration 3 months - 09/10/20 Three Impairment medium risk of chronicity Correction Goal (LTG) Pt will score 3 or less total on STarT Back tool to demonstrate decreased likelihood of chronicity and catastrophization. LTG Duration 3 months - 09/10/20 Two Impairment balance Short Term Goal (STG) Pt will improve SLS from table at height of 24 bilaterally to demonstrate improved BLE strength and stabilty STG Duration 6 weeks - 07/22/20 Correction Goal (LTG) Pt will improve SLS from table at height of 22 bilaterally to demonstrate improved BLE strength and stabilty LTG Duration 3 months - 09/10/20 One Impairment Pt lacks appropriate exercise program Short Term Goal (STG) Pt will be independent with [facility] for support of therapy services provided in clinic STG Duration 6 weeks - 07/22/20 Assessment Summary Assessment Pt overall feels good with his progress. He is able to get in and out of car/ table in a faster manner. I noticed pt tends to walk with forward and R trunk lean and pt stated that it hurts his back to lean L. Will add gait training to POC. Physical Therapy Plan Frequency and Duration Frequency of Treatment 2x/Week Duration of Treatment 3 months Plan of Care Start Date 06/10/20 Plan of Care End Date 09/10/20 Next Visit Focus/Plan Next Note Type Treatment Note Next Visit Plan hip mobility trunk stabilization LE strengthening hip flexors stretch
--- NOTE | 2020-07-10 13:47 | PT.OTN ---
Current Diagnoses Spondylolisthesis, lumbar region (07/10/20) Spinal stenosis, lumbar region without neurogenic claudication (07/10/20) Postlaminectomy syndrome, not elsewhere classified (07/10/20) Difficulty in walking, not elsewhere classified (07/10/20) Abnormal posture (07/10/20) Physical Therapy Treatment Note PT-OP-A Visit Information Start: 06/10/20 14:36 Freq: Status: Active Protocol: Document 07/10/20 12:55 HH (Rec: 07/10/20 13:47 HH [id number]) Out-Patient Physical Therapy Visit Information Visit Information Visit Type Progress Note Visit Start Time 13:00 Visit Stop Time 13:45 Total Visit Minutes 45 Visit Number 10 Number of EARTH SCIENCE FACULTY MEMBER Visits 0 PT-OP-B Current Condition Start: 06/10/20 14:36 Freq: Status: Active Protocol: Document 06/10/20 14:30 AW (Rec: 06/10/20 15:22 AW [id number]) Current Condition History of Current Condition Onset Date years Current Complaints LBP, BLE pain (left worse than right) History of Current Condition Pt has had three lumbar surgeries. The first was 20 years ago - a laminotomy which provided relief for ~10 years . Second surgery 10 years ago was laminectomy which provided relief for a while. He started to have pain again about a year ago and had TLIF two months ago. He's been trying to take it easy since surgery. He complains he is unable to walk or stand >10 min due to pain which he describes as stiffness. He is unable to bend far enough to comfortably reach his feet, interfering with dressing and other self-care tasks. He also has pain in his hips after sitting more than 10 minutes. When he gets up from resting position, he tends to walk in bent-forward position at first. Pt also reports numbness or dull light touch sensation in bilateral feet which he says is getting better little by little since surgery. Prior Treatments and Tests - April 2020: L3-S1 TLIF, L2 -3 hemilami - Prior PT for back pain Future Testing and Treatments Planned None identified Treatment Goals Patient/Caregiver Goals Pt would like to get back to golf in a few months. Have ROM to be able to don shoes/socks more easily, be able to lift 40 pounds, and generally increase BLE strength. Prior Functional Status Baseline Function- ADL's Independent Baseline Function- Mobility Independent Baseline Function- Gait no AD except in the one week following surgery Baseline Function- Work/School Pt is retired. 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 Needs to use a shoe horn Functional Limitations- Mobility/Gait Antalgic. Pt ambulates with significant R trunk rotation and R lateral lean. Also demonstrates steppage gait R>L for clearance of right foot. Functional Limitations- Recreation/ Unable to participate in golf. Hobbies Functional Limitations- Other Unable to lift more than light grocery bags without pain. PT-OP-C Subjective Start: 06/10/20 14:36 Freq: Status: Active Protocol: Document 07/10/20 12:55 HH (Rec: 07/10/20 13:47 HH [id number]) OP-PT Subjective Patient Comments Patient Comments Im pretty good and i think gaviota been walking better. I dont have much discomfort yesterday by running errands which is good. Patient Reported Progress Improving PT-OP-D Balance Start: 06/10/20 14:36 Freq: Status: Active Protocol: Document 06/10/20 14:30 AW (Rec: 06/10/20 17:51 AW [email or web address]) OP-PT Balance Assessment Sitting Balance Static Sitting Balance Ability Good Dynamic Sitting Balance Ability Good Standing Balance Static Standing Balance Ability Fair Dynamic Standing Balance Ability Fair Device Used no AD Standing Balance Comments SLS R and L equal on multiple trials: 8 sec, 6 sec, 8 sec Balance Tests Single Limb Standing Single Limb- Right 8,6,8 Single Limb- Left 8,8,6 Mccann Fall Scale Copyright Permission PT-OP-E Functional Tests Start: 06/10/20 14:36 Freq: Status: Active Protocol: Document 06/10/20 14:30 AW (Rec: 06/10/20 18:01 AW [email or web address]) Functional Tests Single Leg Squat Test Score from 26.5 mat table bilaterally PT-OP-F Manual Assessment Start: 06/10/20 14:36 Freq: Status: Active Protocol: Document 06/10/20 14:30 AW (Rec: 03/10/21 17:51 AW [email or web address]) Manual Assessments Soft Tissue Assessment Soft Tissue Mobility Assessment Significant tone bilateral lumbar paraspinals PT-OP-G Mobility & Gait Start: 06/10/20 14:36 Freq: Status: Active Protocol: Document 06/10/20 14:30 AW (Rec: 06/10/20 17:51 AW [email or web address]) OP Mobility Evaluation Transfers Sit to Stand (+) nikki's sign on multiple observed attempts OP Gait Assessment Gait Gait Assistance Required: Independent Distance (Feet) 200 Assistive Devices Assistive Device None Gait Deviations General Gait Pattern Antalgic,Decreased Stride Length,Decreased Feet Clearance,Lateral Trunk Lean Factors Limiting Gait Function Factors Limiting Gait Function Decreased Activity Tolerance, Decreased Sensation,Decreased Strength,Limited Range of Motion,Pain,Poor Balance Comments Gait Comments Antalgic gait notable for increased trunk rotation to the right and right lateral lean. High steppage gait R>L to compensate for reduced foot clearance. PT-OP-H Neuro Start: 06/10/20 14:36 Freq: Status: Active Protocol: Document 06/10/20 14:30 AW (Rec: 06/10/20 17:51 AW [email or web address]) Sensation Evaluation Gross Sensation Gross Sensation Left LE Impaired,Right LE Impaired Sensation Description Numbness,Tingling Dermatome Impairments L5 Deep Tendon Reflex & Clonus Assessment Deep Tendon Reflex Bilateral Achilles Deep Tendon Reflex 0 Absent Bilateral Patellar Deep Tendon Reflex 2+ Normal PT-OP-J Posture/Palpation/Skin Start: 06/10/20 14:36 Freq: Status: Active Protocol: Document 06/10/20 14:30 AW (Rec: 06/10/20 17:51 AW [email or web address]) Posture Evaluation Comments Posture Comments Swayback with flat lumbar spine. Notable hinge at TL junction 2/2 hardware. PT-OP-K Range of Motion Start: 06/10/20 14:36 Freq: Status: Active Protocol: Document 06/10/20 14:30 AW (Rec: 06/10/20 18:00 AW [email or web address]) Lumbar Spine Range of Motion Lumbar Spine Active Degrees Testing Position Standing Flexion 35 Extension 8 ROM Limitations Soft Tissue Tightness,Pain Comments Side bending with fingertips 14 from the floor bilaterally . Rotation ~25% bilaterally. Hip Goniometric Range of Motion Hip ROM Limitations Comments B hip ROM WNL except IR <15 degrees. PT-OP-L Special Tests Start: 06/10/20 14:36 Freq: Status: Active Protocol: Document 06/10/20 14:30 AW (Rec: 06/10/20 18:00 AW [email or web address]) Special Tests Hip Special Tests Scour Test Test Results right hip positive for pain reproduction PT-OP-M Strength Start: 06/10/20 14:36 Freq: Status: Active Protocol: Document 06/10/20 14:30 AW (Rec: 06/10/20 18:00 AW [email or web address]) Hip Strength Hip Manual Muscle Testing Right Flexion (L2) 4 Good Extension (S1) 3+ Fair+ Abduction 4- Good- External Rotation 4+ Good+ Internal Rotation 4+ Good+ Left Flexion (L2) 4 Good Extension (S1) 3+ Fair+ Abduction 4- Good- External Rotation 4+ Good+ Internal Rotation 4+ Good+ Knee Strength Knee Manual Muscle Testing Right Flexion (S2) 4 Good Extension (L3) 5 Normal Left Flexion (S2) 4 Good Extension (L3) 5 Normal Ankle/Foot Strength Ankle and Foot Manual Muscle Testing Right Dorsiflexion (L4) 4+ Good+ Plantarflexion (S1) 4- Good- Left Dorsiflexion (L4) 4+ Good+ Plantarflexion (S1) 4- Good- Toe Strength Toe Manual Muscle Testing Right Great Toe Extension 4- Good- Comments Left great toe extension 4+/5 PT-OP-Q Treatments Start: 06/10/20 14:36 Freq: Status: Active Protocol: Document 07/10/20 12:55 HH (Rec: 07/10/20 13:47 HH [id number]) Cardio Equipment Recumbent Stepper (Sci-Fit) Duration (Minutes) 8 Resistance 2.5 Seat Position 11 Gym Equipment Shuttle Recovery SL squat Resistance #50 Shuttle Recovery Platform Stable Reps/Time 12 x3 Therapeutic Exercises Supine Exercises Asher test stretch Supine Exercise Name Asher test stretch Side bilateral Equipment Used 30 SH x 1 Comments better tolerance this time Standing Exercises hamstring stretch Side bilateral Comments for HEP step up Standing Exercise Name 6 step Side bilateral Equipment Used handrails Reps/Minutes 10 x2 Comments for HEP squat Side bilateral Equipment Used grab bar Reps/Minutes 8x2 Comments for HEP PT-OP-T Assessment and Plan Start: 06/10/20 14:36 Freq: Status: Active Protocol: Document 07/10/20 12:55 (Rec: 07/10/20 13:47 [id number]) Physical Therapy Assessment Goals Five Impairment ROM Short Term Goal (STG) 07/10 pt has been using sock aid for socks and shoe horn for shoes with laces. Assisted Goal (LTG) Pt will be able to don shoes and socks without shoe horn and without increase in baseline pain level. 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 LTG Duration 3 months - 09/10/20 Two Impairment balance Short Term Goal (STG) Pt will improve SLS from table at height of 24 bilaterally to demonstrate improved BLE strength and stabilty STG Duration 6 weeks - 07/22/20 Assisted Goal (LTG) Pt will improve SLS from table at height of 22 bilaterally to demonstrate improved BLE strength and stabilty LTG Duration 3 months - 09/10/20 One Impairment Pt lacks appropriate exercise program Short Term Goal (STG) Pt will be independent with HEP for support of therapy services provided in clinic STG Duration 6 weeks - 07/22/20 Assessment Summary Assessment Pt has been showing good progress with improved hip mobility and overall LE strength. Educated pt to focus on hamstrings flexibility HEP . Physical Therapy Plan Frequency and Duration Frequency of Treatment 2x/Week Duration of Treatment 3 months Plan of Care Start Date 06/10/20 Plan of Care End Date 09/10/20 Next Visit Focus/Plan Next Note Type Treatment Note Next Visit Plan hip mobility trunk stabilization LE strengthening hip flexors stretch
--- NOTE | 2020-07-15 17:03 | PT.OTN ---
Current Diagnoses Spondylolisthesis, lumbar region (07/15/20) Spinal stenosis, lumbar region without neurogenic claudication (07/15/20) Postlaminectomy syndrome, not elsewhere classified (07/15/20) Difficulty in walking, not elsewhere classified (07/15/20) Abnormal posture (07/15/20) Physical Therapy Treatment Note PT-OP-A Visit Information Start: 06/10/20 14:36 Freq: Status: Active Protocol: Document 07/15/20 14:30 AW (Rec: 07/15/20 14:32 AW [id number]) Out-Patient Physical Therapy Visit Information Visit Information Visit Type Treatment Note Visit Note Pt arrived late due to traffic . Visit Start Time 13:57 Visit Stop Time 14:30 Total Visit Minutes 33 Visit Number 11 Number of MANAGER COSTING Visits 0 Evaluation Information Evaluation Date 06/10/20 PT-OP-B Current Condition Start: 06/10/20 14:36 Freq: Status: Active Protocol: Document 06/10/20 14:30 AW (Rec: 06/10/20 15:22 AW [id number]) Current Condition History of Current Condition Onset Date years Current Complaints LBP, BLE pain (left worse than right) History of Current Condition Pt has had three lumbar surgeries. The first was 20 years ago - a laminotomy which provided relief for ~10 years . Second surgery 10 years ago was laminectomy which provided relief for a while. He started to have pain again about a year ago and had TLIF two months ago. He's been trying to take it easy since surgery. He complains he is unable to walk or stand >10 min due to pain which he describes as stiffness. He is unable to bend far enough to comfortably reach his feet, interfering with dressing and other self-care tasks. He also has pain in his hips after sitting more than 10 minutes. When he gets up from resting position, he tends to walk in bent-forward position at first. Pt also reports numbness or dull light touch sensation in bilateral feet which he says is getting better little by little since surgery. Prior Treatments and Tests - April 2020: L3-S1 TLIF, L2 -3 hemilami - Prior PT for back pain Future Testing and Treatments Planned None identified Treatment Goals Patient/Caregiver Goals Pt would like to get back to golf in a few months. Have ROM to be able to don shoes/socks more easily, be able to lift 40 pounds, and generally increase BLE strength. Prior Functional Status Baseline Function- ADL's Independent Baseline Function- Mobility Independent Baseline Function- Gait no AD except in the one week following surgery Baseline Function- Work/School Pt is retired. 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 Needs to use a shoe horn Functional Limitations- Mobility/Gait Antalgic. Pt ambulates with significant R trunk rotation and R lateral lean. Also demonstrates steppage gait R>L for clearance of right foot. Functional Limitations- Recreation/ Unable to participate in golf. Hobbies Functional Limitations- Other Unable to lift more than light grocery bags without pain. PT-OP-C Subjective Start: 06/10/20 14:36 Freq: Status: Active Protocol: Document 07/15/20 14:30 AW (Rec: 07/15/20 14:32 AW [id number]) OP-PT Subjective Patient Comments Patient Comments I was sore after last session and my right groin has felt really sore and tight. Maybe I overdid it. PT-OP-D Balance Start: 06/10/20 14:36 Freq: Status: Active Protocol: Document 06/10/20 14:30 AW (Rec: 06/10/20 17:51 AW [email or web address]) OP-PT Balance Assessment Sitting Balance Static Sitting Balance Ability Good Dynamic Sitting Balance Ability Good Standing Balance Static Standing Balance Ability Fair Dynamic Standing Balance Ability Fair Device Used no AD Standing Balance Comments SLS R and L equal on multiple trials: 8 sec, 6 sec, 8 sec Balance Tests Single Limb Standing Single Limb- Right 8,6,8 Single Limb- Left 8,8,6 Mccann Fall Scale Copyright Permission PT-OP-E Functional Tests Start: 06/10/20 14:36 Freq: Status: Active Protocol: Document 06/10/20 14:30 AW (Rec: 06/10/20 18:01 AW [email or web address]) Functional Tests Single Leg Squat Test Score from 26.5 mat table bilaterally PT-OP-F Manual Assessment Start: 06/10/20 14:36 Freq: Status: Active Protocol: Document 06/10/20 14:30 AW (Rec: 06/10/20 17:51 AW [email or web address]) Manual Assessments Soft Tissue Assessment Soft Tissue Mobility Assessment Significant tone bilateral lumbar paraspinals PT-OP-G Mobility & Gait Start: 06/10/20 14:36 Freq: Status: Active Protocol: Document 06/10/20 14:30 AW (Rec: 06/10/20 17:51 AW [email or web address]) OP Mobility Evaluation Transfers Sit to Stand (+) nikki's sign on multiple observed attempts OP Gait Assessment Gait Gait Assistance Required: Independent Distance (Feet) 200 Assistive Devices Assistive Device None Gait Deviations General Gait Pattern Antalgic,Decreased Stride Length,Decreased Feet Clearance,Lateral Trunk Lean Factors Limiting Gait Function Factors Limiting Gait Function Decreased Activity Tolerance, Decreased Sensation,Decreased Strength,Limited Range of Motion,Pain,Poor Balance Comments Gait Comments Antalgic gait notable for increased trunk rotation to the right and right lateral lean. High steppage gait R>L to compensate for reduced foot clearance. PT-OP-H Neuro Start: 06/10/20 14:36 Freq: Status: Active Protocol: Document 06/10/20 14:30 AW (Rec: 06/10/20 17:51 AW [email or web address]) Sensation Evaluation Gross Sensation Gross Sensation Left LE Impaired,Right LE Impaired Sensation Description Numbness,Tingling Dermatome Impairments L5 Deep Tendon Reflex & Clonus Assessment Deep Tendon Reflex Bilateral Achilles Deep Tendon Reflex 0 Absent Bilateral Patellar Deep Tendon Reflex 2+ Normal PT-OP-J Posture/Palpation/Skin Start: 06/10/20 14:36 Freq: Status: Active Protocol: Document 06/10/20 14:30 AW (Rec: 06/10/20 17:51 AW [email or web address]) Posture Evaluation Comments Posture Comments Swayback with flat lumbar spine. Notable hinge at TL junction 2/2 hardware. PT-OP-K Range of Motion Start: 06/10/20 14:36 Freq: Status: Active Protocol: Document 06/10/20 14:30 AW (Rec: 06/10/20 18:00 AW [email or web address]) Lumbar Spine Range of Motion Lumbar Spine Active Degrees Testing Position Standing Flexion 35 Extension 8 ROM Limitations Soft Tissue Tightness,Pain Comments Side bending with fingertips 14 from the floor bilaterally . Rotation ~25% bilaterally. Hip Goniometric Range of Motion Hip ROM Limitations Comments B hip ROM WNL except IR <15 degrees. PT-OP-L Special Tests Start: 06/10/20 14:36 Freq: Status: Active Protocol: Document 06/10/20 14:30 AW (Rec: 06/10/20 18:00 AW [email or web address]) Special Tests Hip Special Tests Scour Test Test Results right hip positive for pain reproduction PT-OP-M Strength Start: 06/10/20 14:36 Freq: Status: Active Protocol: Document 06/10/20 14:30 AW (Rec: 06/10/20 18:00 AW [email or web address]) Hip Strength Hip Manual Muscle Testing Right Flexion (L2) 4 Good Extension (S1) 3+ Fair+ Abduction 4- Good- External Rotation 4+ Good+ Internal Rotation 4+ Good+ Left Flexion (L2) 4 Good Extension (S1) 3+ Fair+ Abduction 4- Good- External Rotation 4+ Good+ Internal Rotation 4+ Good+ Knee Strength Knee Manual Muscle Testing Right Flexion (S2) 4 Good Extension (L3) 5 Normal Left Flexion (S2) 4 Good Extension (L3) 5 Normal Ankle/Foot Strength Ankle and Foot Manual Muscle Testing Right Dorsiflexion (L4) 4+ Good+ Plantarflexion (S1) 4- Good- Left Dorsiflexion (L4) 4+ Good+ Plantarflexion (S1) 4- Good- Toe Strength Toe Manual Muscle Testing Right Great Toe Extension 4- Good- Comments Left great toe extension 4+/5 PT-OP-Q Treatments Start: 06/10/20 14:36 Freq: Status: Active Protocol: Document 07/15/20 14:30 AW (Rec: 07/15/20 14:32 AW [id number]) Cardio Equipment Recumbent Stepper (Sci-Fit) Duration (Minutes) 5 Resistance 2.5 Seat Position 11 Gym Equipment Shuttle Recovery SL squat Resistance #50 Shuttle Recovery Platform Stable Reps/Time 12 x3 Therapeutic Exercises Supine Exercises Asher test stretch Supine Exercise Name Asher test stretch Side bilateral Equipment Used 30 SH x 1 Comments better tolerance this time bridging Side bilateral Reps/Minutes 8 x2 Comments with yellow band for abd, able to reach the top. Standing Exercises hamstring stretch Side bilateral Comments for HEP step up Standing Exercise Name 6 step Side bilateral Equipment Used handrails Reps/Minutes 10 x2 Comments for HEP PT-OP-T Assessment and Plan Start: 06/10/20 14:36 Freq: Status: Active Protocol: Document 07/15/20 14:30 AW (Rec: 07/15/20 14:32 AW [id number]) Physical Therapy Assessment Goals Five Impairment ROM Short Term Goal (STG) 07/10 pt has been using sock aid for socks and shoe horn for shoes with laces. Biometry Teacher Goal (LTG) Pt will be able to don shoes and socks without shoe horn and without increase in baseline pain level. LTG Duration 3 months - 09/10/20 Four Impairment unable to particpate in recreational activities Half-Way Goal (LTG) Pt will complete 9 holes of golf without increase in baseline pain level LTG Duration 3 months - 09/10/20 Three Impairment medium risk of chronicity Half-Way Goal (LTG) Pt will score 3 or less total on STarT Back tool to demonstrate decreased likelihood of chronicity and catastrophization. LTG Duration 3 months - 09/10/20 Two Impairment balance Short Term Goal (STG) Pt will improve SLS from table at height of 24 bilaterally to demonstrate improved BLE strength and stabilty STG Duration 6 weeks - 07/22/20 Biometry Teacher Goal (LTG) Pt will improve SLS from table at height of 22 bilaterally to demonstrate improved BLE strength and stabilty LTG Duration 3 months - 09/10/20 One Impairment Pt lacks appropriate exercise program Short Term Goal (STG) Pt will be independent with [facility] for support of therapy services provided in clinic STG Duration 6 weeks - 07/22/20 Assessment Summary Assessment Pt arrived late today but worked hard with therapy in time available. He was hesitant to do much today since he was sore after last visit but he remains active with daily walking and chores around his property. Overall gait quality has improved - especially with initiation. Physical Therapy Plan Frequency and Duration Frequency of Treatment 2x/Week Duration of Treatment 3 months Plan of Care Start Date 06/10/20 Plan of Care End Date 09/10/20 Next Visit Focus/Plan Next Note Type Treatment Note Next Visit Plan hip mobility trunk stabilization LE strengthening hip flexors stretch
--- NOTE | 2020-07-17 13:48 | PT.OTN ---
Current Diagnoses Spondylolisthesis, lumbar region (07/17/20) Spinal stenosis, lumbar region without neurogenic claudication (07/17/20) Postlaminectomy syndrome, not elsewhere classified (07/17/20) Difficulty in walking, not elsewhere classified (07/17/20) Abnormal posture (07/17/20) Physical Therapy Treatment Note PT-OP-A Visit Information Start: 06/10/20 14:36 Freq: Status: Active Protocol: Document 07/17/20 13:00 HH (Rec: 07/17/20 13:48 HH [id number]) Out-Patient Physical Therapy Visit Information Visit Information Visit Type Treatment Note Visit Start Time 13:02 Visit Stop Time 13:45 Total Visit Minutes 43 Visit Number 12 Number of EMERGENCY PLANNER Visits 0 PT-OP-B Current Condition Start: 06/10/20 14:36 Freq: Status: Active Protocol: Document 06/10/20 14:30 AW (Rec: 06/10/20 15:22 AW [id number]) Current Condition History of Current Condition Onset Date years Current Complaints LBP, BLE pain (left worse than right) History of Current Condition Pt has had three lumbar surgeries. The first was 20 years ago - a laminotomy which provided relief for ~10 years . Second surgery 10 years ago was laminectomy which provided relief for a while. He started to have pain again about a year ago and had TLIF two months ago. He's been trying to take it easy since surgery. He complains he is unable to walk or stand >10 min due to pain which he describes as stiffness. He is unable to bend far enough to comfortably reach his feet, interfering with dressing and other self-care tasks. He also has pain in his hips after sitting more than 10 minutes. When he gets up from resting position, he tends to walk in bent-forward position at first. Pt also reports numbness or dull light touch sensation in bilateral feet which he says is getting better little by little since surgery. Prior Treatments and Tests - April 2020: L3-S1 TLIF, L2 -3 hemilami - Prior PT for back pain Future Testing and Treatments Planned None identified Treatment Goals Patient/Caregiver Goals Pt would like to get back to golf in a few months. Have ROM to be able to don shoes/socks more easily, be able to lift 40 pounds, and generally increase BLE strength. Prior Functional Status Baseline Function- ADL's Independent Baseline Function- Mobility Independent Baseline Function- Gait no AD except in the one week following surgery Baseline Function- Work/School Pt is retired. 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 Needs to use a shoe horn Functional Limitations- Mobility/Gait Antalgic. Pt ambulates with significant R trunk rotation and R lateral lean. Also demonstrates steppage gait R>L for clearance of right foot. Functional Limitations- Recreation/ Unable to participate in golf. Hobbies Functional Limitations- Other Unable to lift more than light grocery bags without pain. PT-OP-C Subjective Start: 06/10/20 14:36 Freq: Status: Active Protocol: Document 07/17/20 13:00 HH (Rec: 07/17/20 13:48 HH [id number]) OP-PT Subjective Patient Comments Patient Comments My leg strength is getting back and my soreness is not as bad. I can get to the truck seat without pulling too hard on handle. Patient Reported Progress Improving PT-OP-D Balance Start: 06/10/20 14:36 Freq: Status: Active Protocol: Document 06/10/20 14:30 AW (Rec: 06/10/20 17:51 AW [email or web address]) OP-PT Balance Assessment Sitting Balance Static Sitting Balance Ability Good Dynamic Sitting Balance Ability Good Standing Balance Static Standing Balance Ability Fair Dynamic Standing Balance Ability Fair Device Used no AD Standing Balance Comments SLS R and L equal on multiple trials: 8 sec, 6 sec, 8 sec Balance Tests Single Limb Standing Single Limb- Right 8,6,8 Single Limb- Left 8,8,6 Mccann Fall Scale Copyright Permission PT-OP-E Functional Tests Start: 06/10/20 14:36 Freq: Status: Active Protocol: Document 06/10/20 14:30 AW (Rec: 06/10/20 18:01 AW [email or web address]) Functional Tests Single Leg Squat Test Score from 26.5 mat table bilaterally PT-OP-F Manual Assessment Start: 06/10/20 14:36 Freq: Status: Active Protocol: Document 06/10/20 14:30 AW (Rec: 03/10/21 17:51 AW [email or web address]) Manual Assessments Soft Tissue Assessment Soft Tissue Mobility Assessment Significant tone bilateral lumbar paraspinals PT-OP-G Mobility & Gait Start: 06/10/20 14:36 Freq: Status: Active Protocol: Document 06/10/20 14:30 AW (Rec: 06/10/20 17:51 AW [email or web address]) OP Mobility Evaluation Transfers Sit to Stand (+) nikki's sign on multiple observed attempts OP Gait Assessment Gait Gait Assistance Required: Independent Distance (Feet) 200 Assistive Devices Assistive Device None Gait Deviations General Gait Pattern Antalgic,Decreased Stride Length,Decreased Feet Clearance,Lateral Trunk Lean Factors Limiting Gait Function Factors Limiting Gait Function Decreased Activity Tolerance, Decreased Sensation,Decreased Strength,Limited Range of Motion,Pain,Poor Balance Comments Gait Comments Antalgic gait notable for increased trunk rotation to the right and right lateral lean. High steppage gait R>L to compensate for reduced foot clearance. PT-OP-H Neuro Start: 06/10/20 14:36 Freq: Status: Active Protocol: Document 06/10/20 14:30 AW (Rec: 06/10/20 17:51 AW [email or web address]) Sensation Evaluation Gross Sensation Gross Sensation Left LE Impaired,Right LE Impaired Sensation Description Numbness,Tingling Dermatome Impairments L5 Deep Tendon Reflex & Clonus Assessment Deep Tendon Reflex Bilateral Achilles Deep Tendon Reflex 0 Absent Bilateral Patellar Deep Tendon Reflex 2+ Normal PT-OP-J Posture/Palpation/Skin Start: 06/10/20 14:36 Freq: Status: Active Protocol: Document 06/10/20 14:30 AW (Rec: 06/10/20 17:51 AW [email or web address]) Posture Evaluation Comments Posture Comments Swayback with flat lumbar spine. Notable hinge at TL junction 2/2 hardware. PT-OP-K Range of Motion Start: 06/10/20 14:36 Freq: Status: Active Protocol: Document 06/10/20 14:30 AW (Rec: 06/10/20 18:00 AW [email or web address]) Lumbar Spine Range of Motion Lumbar Spine Active Degrees Testing Position Standing Flexion 35 Extension 8 ROM Limitations Soft Tissue Tightness,Pain Comments Side bending with fingertips 14 from the floor bilaterally . Rotation ~25% bilaterally. Hip Goniometric Range of Motion Hip ROM Limitations Comments B hip ROM WNL except IR <15 degrees. PT-OP-L Special Tests Start: 06/10/20 14:36 Freq: Status: Active Protocol: Document 06/10/20 14:30 AW (Rec: 06/10/20 18:00 AW [email or web address]) Special Tests Hip Special Tests Scour Test Test Results right hip positive for pain reproduction PT-OP-M Strength Start: 06/10/20 14:36 Freq: Status: Active Protocol: Document 06/10/20 14:30 AW (Rec: 06/10/20 18:00 AW [email or web address]) Hip Strength Hip Manual Muscle Testing Right Flexion (L2) 4 Good Extension (S1) 3+ Fair+ Abduction 4- Good- External Rotation 4+ Good+ Internal Rotation 4+ Good+ Left Flexion (L2) 4 Good Extension (S1) 3+ Fair+ Abduction 4- Good- External Rotation 4+ Good+ Internal Rotation 4+ Good+ Knee Strength Knee Manual Muscle Testing Right Flexion (S2) 4 Good Extension (L3) 5 Normal Left Flexion (S2) 4 Good Extension (L3) 5 Normal Ankle/Foot Strength Ankle and Foot Manual Muscle Testing Right Dorsiflexion (L4) 4+ Good+ Plantarflexion (S1) 4- Good- Left Dorsiflexion (L4) 4+ Good+ Plantarflexion (S1) 4- Good- Toe Strength Toe Manual Muscle Testing Right Great Toe Extension 4- Good- Comments Left great toe extension 4+/5 PT-OP-Q Treatments Start: 06/10/20 14:36 Freq: Status: Active Protocol: Document 07/17/20 13:00 HH (Rec: 07/17/20 13:48 HH [id number]) Cardio Equipment Recumbent Stepper (Sci-Fit) Duration (Minutes) 8 Resistance 2.5 Seat Position 11 Gym Equipment Shuttle Recovery SL squat Resistance #50 Shuttle Recovery Platform Stable Reps/Time 12 x3 Therapeutic Exercises Supine Exercises Asher test stretch Supine Exercise Name Asher test stretch Side bilateral Equipment Used 30 SH x 1 Comments better tolerance this time LTR Side bilateral Reps/Minutes 8x1 Sitting Exercises seated flexion Sitting Exercise Name trunk flexion Side bilateral Equipment Used red therapy ball. Reps/Minutes 8 x 1 Standing Exercises step up Standing Exercise Name 6 step Side bilateral Equipment Used handrails Reps/Minutes 10 x2 Comments for HEP PT-OP-T Assessment and Plan Start: 06/10/20 14:36 Freq: Status: Active Protocol: Document 07/17/20 13:00 (Rec: 07/17/20 13:48 [id number]) Physical Therapy Assessment Goals Five Impairment ROM Short Term Goal (STG) 07/10 pt has been using sock aid for socks and shoe horn for shoes with laces. Care Home Goal (LTG) Pt will be able to don shoes and socks without shoe horn and without increase in baseline pain level. LTG Duration 3 months - 09/10/20 Four Impairment unable to particpate in recreational activities Care Home Goal (LTG) Pt will complete 9 holes of golf without increase in baseline pain level LTG Duration 3 months - 09/10/20 Three Impairment medium risk of chronicity Airline Hostess Goal (LTG) Pt will score 3 or less total on STarT Back tool to demonstrate decreased likelihood of chronicity and catastrophization. LTG Duration 3 months - 09/10/20 Two Impairment balance Short Term Goal (STG) Pt will improve SLS from table at height of 24 bilaterally to demonstrate improved BLE strength and stabilty STG Duration 6 weeks - 07/22/20 Airline Hostess Goal (LTG) Pt will improve SLS from table at height of 22 bilaterally to demonstrate improved BLE strength and stabilty LTG Duration 3 months - 09/10/20 One Impairment Pt lacks appropriate exercise program Short Term Goal (STG) Pt will be independent with [facility] for support of therapy services provided in clinic STG Duration 6 weeks - 07/22/20 Assessment Summary Assessment pt is doing good today and jeri session well. No increase in discomfort noted. Physical Therapy Plan Frequency and Duration Frequency of Treatment 2x/Week Duration of Treatment 3 months Plan of Care Start Date 06/10/20 Plan of Care End Date 09/10/20 Therapeutic Interventions Therapeutic Interventions Balance Training,Gait Training ,Home Exercise Program,Joint Mobilizations,Manual Therapy, Neuromuscular Re-education, Patient/Caregiver Education, Self-Care/Home Management,Soft Tissue Mobilization,Taping, Therapeutic Activities, Therapeutic Exercises Modalities Cold Pack/Ice Massage,Electric Stimulation,Hot Packs Next Visit Focus/Plan Next Note Type Treatment Note Next Visit Plan hip mobility trunk stabilization LE strengthening hip flexors stretch
--- NOTE | 2020-07-22 16:36 | PT.OTN ---
Current Diagnoses Spondylolisthesis, lumbar region (07/22/20) Spinal stenosis, lumbar region without neurogenic claudication (07/22/20) Postlaminectomy syndrome, not elsewhere classified (07/22/20) Difficulty in walking, not elsewhere classified (07/22/20) Abnormal posture (07/22/20) Physical Therapy Treatment Note PT-OP-A Visit Information Start: 06/10/20 14:36 Freq: Status: Active Protocol: Document 07/22/20 14:30 AW (Rec: 07/22/20 14:32 AW [id number]) Out-Patient Physical Therapy Visit Information Visit Information Visit Type Treatment Note Visit Start Time 13:45 Visit Stop Time 14:30 Total Visit Minutes 45 Visit Number 13 Number of LUMBER TRIMMER Visits 0 Evaluation Information Evaluation Date 06/10/20 PT-OP-B Current Condition Start: 06/10/20 14:36 Freq: Status: Active Protocol: Document 06/10/20 14:30 AW (Rec: 06/10/20 15:22 AW [id number]) Current Condition History of Current Condition Onset Date years Current Complaints LBP, BLE pain (left worse than right) History of Current Condition Pt has had three lumbar surgeries. The first was 20 years ago - a laminotomy which provided relief for ~10 years . Second surgery 10 years ago was laminectomy which provided relief for a while. He started to have pain again about a year ago and had TLIF two months ago. He's been trying to take it easy since surgery. He complains he is unable to walk or stand >10 min due to pain which he describes as stiffness. He is unable to bend far enough to comfortably reach his feet, interfering with dressing and other self-care tasks. He also has pain in his hips after sitting more than 10 minutes. When he gets up from resting position, he tends to walk in bent-forward position at first. Pt also reports numbness or dull light touch sensation in bilateral feet which he says is getting better little by little since surgery. Prior Treatments and Tests - April 2020: L3-S1 TLIF, L2 -3 hemilami - Prior PT for back pain Future Testing and Treatments Planned None identified Treatment Goals Patient/Caregiver Goals Pt would like to get back to golf in a few months. Have ROM to be able to don shoes/socks more easily, be able to lift 40 pounds, and generally increase BLE strength. Prior Functional Status Baseline Function- ADL's Independent Baseline Function- Mobility Independent Baseline Function- Gait no AD except in the one week following surgery Baseline Function- Work/School Pt is retired. 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 Needs to use a shoe horn Functional Limitations- Mobility/Gait Antalgic. Pt ambulates with significant R trunk rotation and R lateral lean. Also demonstrates steppage gait R>L for clearance of right foot. Functional Limitations- Recreation/ Unable to participate in golf. Hobbies Functional Limitations- Other Unable to lift more than light grocery bags without pain. PT-OP-C Subjective Start: 06/10/20 14:36 Freq: Status: Active Protocol: Document 07/22/20 14:30 AW (Rec: 07/22/20 14:32 AW [id number]) OP-PT Subjective Patient Comments Patient Comments I struggled with it a little but I did get my socks on without the sock aid today. Patient Reported Progress Improving PT-OP-D Balance Start: 06/10/20 14:36 Freq: Status: Active Protocol: Document 06/10/20 14:30 AW (Rec: 06/10/20 17:51 AW [email or web address]) OP-PT Balance Assessment Sitting Balance Static Sitting Balance Ability Good Dynamic Sitting Balance Ability Good Standing Balance Static Standing Balance Ability Fair Dynamic Standing Balance Ability Fair Device Used no AD Standing Balance Comments SLS R and L equal on multiple trials: 8 sec, 6 sec, 8 sec Balance Tests Single Limb Standing Single Limb- Right 8,6,8 Single Limb- Left 8,8,6 Mccann Fall Scale Copyright Permission PT-OP-E Functional Tests Start: 06/10/20 14:36 Freq: Status: Active Protocol: Document 06/10/20 14:30 AW (Rec: 06/10/20 18:01 AW [email or web address]) Functional Tests Single Leg Squat Test Score from 26.5 mat table bilaterally PT-OP-F Manual Assessment Start: 06/10/20 14:36 Freq: Status: Active Protocol: Document 06/10/20 14:30 AW (Rec: 03/10/21 17:51 AW [email or web address]) Manual Assessments Soft Tissue Assessment Soft Tissue Mobility Assessment Significant tone bilateral lumbar paraspinals PT-OP-G Mobility & Gait Start: 06/10/20 14:36 Freq: Status: Active Protocol: Document 06/10/20 14:30 AW (Rec: 06/10/20 17:51 AW [email or web address]) OP Mobility Evaluation Transfers Sit to Stand (+) nikki's sign on multiple observed attempts OP Gait Assessment Gait Gait Assistance Required: Independent Distance (Feet) 200 Assistive Devices Assistive Device None Gait Deviations General Gait Pattern Antalgic,Decreased Stride Length,Decreased Feet Clearance,Lateral Trunk Lean Factors Limiting Gait Function Factors Limiting Gait Function Decreased Activity Tolerance, Decreased Sensation,Decreased Strength,Limited Range of Motion,Pain,Poor Balance Comments Gait Comments Antalgic gait notable for increased trunk rotation to the right and right lateral lean. High steppage gait R>L to compensate for reduced foot clearance. PT-OP-H Neuro Start: 06/10/20 14:36 Freq: Status: Active Protocol: Document 06/10/20 14:30 AW (Rec: 06/10/20 17:51 AW [email or web address]) Sensation Evaluation Gross Sensation Gross Sensation Left LE Impaired,Right LE Impaired Sensation Description Numbness,Tingling Dermatome Impairments L5 Deep Tendon Reflex & Clonus Assessment Deep Tendon Reflex Bilateral Achilles Deep Tendon Reflex 0 Absent Bilateral Patellar Deep Tendon Reflex 2+ Normal PT-OP-J Posture/Palpation/Skin Start: 06/10/20 14:36 Freq: Status: Active Protocol: Document 06/10/20 14:30 AW (Rec: 06/10/20 17:51 AW [email or web address]) Posture Evaluation Comments Posture Comments Swayback with flat lumbar spine. Notable hinge at TL junction 2/2 hardware. PT-OP-K Range of Motion Start: 06/10/20 14:36 Freq: Status: Active Protocol: Document 06/10/20 14:30 AW (Rec: 06/10/20 18:00 AW [email or web address]) Lumbar Spine Range of Motion Lumbar Spine Active Degrees Testing Position Standing Flexion 35 Extension 8 ROM Limitations Soft Tissue Tightness,Pain Comments Side bending with fingertips 14 from the floor bilaterally . Rotation ~25% bilaterally. Hip Goniometric Range of Motion Hip ROM Limitations Comments B hip ROM WNL except IR <15 degrees. PT-OP-L Special Tests Start: 06/10/20 14:36 Freq: Status: Active Protocol: Document 06/10/20 14:30 AW (Rec: 06/10/20 18:00 AW [email or web address]) Special Tests Hip Special Tests Scour Test Test Results right hip positive for pain reproduction PT-OP-M Strength Start: 06/10/20 14:36 Freq: Status: Active Protocol: Document 06/10/20 14:30 AW (Rec: 06/10/20 18:00 AW [email or web address]) Hip Strength Hip Manual Muscle Testing Right Flexion (L2) 4 Good Extension (S1) 3+ Fair+ Abduction 4- Good- External Rotation 4+ Good+ Internal Rotation 4+ Good+ Left Flexion (L2) 4 Good Extension (S1) 3+ Fair+ Abduction 4- Good- External Rotation 4+ Good+ Internal Rotation 4+ Good+ Knee Strength Knee Manual Muscle Testing Right Flexion (S2) 4 Good Extension (L3) 5 Normal Left Flexion (S2) 4 Good Extension (L3) 5 Normal Ankle/Foot Strength Ankle and Foot Manual Muscle Testing Right Dorsiflexion (L4) 4+ Good+ Plantarflexion (S1) 4- Good- Left Dorsiflexion (L4) 4+ Good+ Plantarflexion (S1) 4- Good- Toe Strength Toe Manual Muscle Testing Right Great Toe Extension 4- Good- Comments Left great toe extension 4+/5 PT-OP-Q Treatments Start: 06/10/20 14:36 Freq: Status: Active Protocol: Document 07/22/20 14:30 AW (Rec: 07/22/20 14:32 AW [id number]) Cardio Equipment Recumbent Stepper (Sci-Fit) Duration (Minutes) 8 Resistance 2.5 Seat Position 11 Gym Equipment Shuttle Recovery SL squat Resistance #62 Shuttle Recovery Platform Stable Reps/Time 12 x3 Therapeutic Exercises Supine Exercises Asher test stretch Supine Exercise Name Asher test stretch Side bilateral Equipment Used 30 SH x 2 bridging Side bilateral Reps/Minutes 8 x2 LTR Side bilateral Reps/Minutes 8x1 piriformis stretch Side bilateral Reps/Minutes 15 sec x 5 Comments more restricted right side Sitting Exercises seated flexion Sitting Exercise Name trunk flexion Side bilateral Equipment Used red therapy ball Reps/Minutes 8 x 1 Standing Exercises step up Standing Exercise Name lateral step up Side bilateral Resistance 6 step Equipment Used handrails Reps/Minutes 10 x2 PT-OP-T Assessment and Plan Start: 06/10/20 14:36 Freq: Status: Active Protocol: Document 07/22/20 14:30 AW (Rec: 07/22/20 16:36 AW [email or web address]) Physical Therapy Assessment Goals Five Impairment ROM Short Term Goal (STG) 07/10 pt has been using sock aid for socks and shoe horn for shoes with laces. Rubber Goods Tester Goal (LTG) Pt will be able to don shoes and socks without shoe horn and without increase in baseline pain level. LTG Duration 3 months - 09/10/20 Four Impairment unable to particpate in recreational activities Rubber Goods Tester Goal (LTG) Pt will complete 9 holes of golf without increase in baseline pain level LTG Duration 3 months - 09/10/20 Three Impairment medium risk of chronicity Correction Goal (LTG) Pt will score 3 or less total on STarT Back tool to demonstrate decreased likelihood of chronicity and catastrophization. LTG Duration 3 months - 09/10/20 Two Impairment balance Short Term Goal (STG) Pt will improve SLS from table at height of 24 bilaterally to demonstrate improved BLE strength and stabilty STG Duration 6 weeks - 07/22/20 Rubber Goods Tester Goal (LTG) Pt will improve SLS from table at height of 22 bilaterally to demonstrate improved BLE strength and stabilty LTG Duration 3 months - 09/10/20 One Impairment Pt lacks appropriate exercise program Short Term Goal (STG) Pt will be independent with [facility] for support of therapy services provided in clinic STG Duration 6 weeks - 07/22/20 Assessment Summary Assessment Pt is ambulating with improved thoracic rotation and less rightward lateral lean. Tolerated increase in shuttle weight today with no complaints. Physical Therapy Plan Frequency and Duration Frequency of Treatment 2x/Week Duration of Treatment 3 months Plan of Care Start Date 06/10/20 Plan of Care End Date 09/10/20 Therapeutic Interventions Therapeutic Interventions Balance Training,Gait Training ,Home Exercise Program,Joint Mobilizations,Manual Therapy, Neuromuscular Re-education, Patient/Caregiver Education, Self-Care/Home Management,Soft Tissue Mobilization,Taping, Therapeutic Activities, Therapeutic Exercises Modalities Cold Pack/Ice Massage,Electric Stimulation,Hot Packs Next Visit Focus/Plan Next Note Type Treatment Note Next Visit Plan hip mobility trunk stabilization LE strengthening hip flexors stretch
--- NOTE | 2020-07-24 16:25 | PT.OTN ---
Current Diagnoses Spondylolisthesis, lumbar region (07/24/20) Spinal stenosis, lumbar region without neurogenic claudication (07/24/20) Postlaminectomy syndrome, not elsewhere classified (07/24/20) Difficulty in walking, not elsewhere classified (07/24/20) Abnormal posture (07/24/20) Physical Therapy Treatment Note PT-OP-A Visit Information Start: 06/10/20 14:36 Freq: Status: Active Protocol: Document 07/24/20 13:03 HH (Rec: 07/24/20 16:24 HH [id number]) Out-Patient Physical Therapy Visit Information Visit Information Visit Type Treatment Note Visit Start Time 13:02 Visit Stop Time 13:45 Total Visit Minutes 43 Visit Number 14 Number of INTERNAL CARVER Visits 0 PT-OP-B Current Condition Start: 06/10/20 14:36 Freq: Status: Active Protocol: Document 06/10/20 14:30 AW (Rec: 06/10/20 15:22 AW [id number]) Current Condition History of Current Condition Onset Date years Current Complaints LBP, BLE pain (left worse than right) History of Current Condition Pt has had three lumbar surgeries. The first was 20 years ago - a laminotomy which provided relief for ~10 years . Second surgery 10 years ago was laminectomy which provided relief for a while. He started to have pain again about a year ago and had TLIF two months ago. He's been trying to take it easy since surgery. He complains he is unable to walk or stand >10 min due to pain which he describes as stiffness. He is unable to bend far enough to comfortably reach his feet, interfering with dressing and other self-care tasks. He also has pain in his hips after sitting more than 10 minutes. When he gets up from resting position, he tends to walk in bent-forward position at first. Pt also reports numbness or dull light touch sensation in bilateral feet which he says is getting better little by little since surgery. Prior Treatments and Tests - April 2020: L3-S1 TLIF, L2 -3 hemilami - Prior PT for back pain Future Testing and Treatments Planned None identified Treatment Goals Patient/Caregiver Goals Pt would like to get back to golf in a few months. Have ROM to be able to don shoes/socks more easily, be able to lift 40 pounds, and generally increase BLE strength. Prior Functional Status Baseline Function- ADL's Independent Baseline Function- Mobility Independent Baseline Function- Gait no AD except in the one week following surgery Baseline Function- Work/School Pt is retired. 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 Needs to use a shoe horn Functional Limitations- Mobility/Gait Antalgic. Pt ambulates with significant R trunk rotation and R lateral lean. Also demonstrates steppage gait R>L for clearance of right foot. Functional Limitations- Recreation/ Unable to participate in golf. Hobbies Functional Limitations- Other Unable to lift more than light grocery bags without pain. PT-OP-C Subjective Start: 06/10/20 14:36 Freq: Status: Active Protocol: Document 07/24/20 13:03 HH (Rec: 07/24/20 16:24 HH [id number]) OP-PT Subjective Patient Comments Patient Comments Im doing pretty good for the past two days. Im little stiff today but i did some physical activities this morning Patient Reported Progress Improving PT-OP-D Balance Start: 06/10/20 14:36 Freq: Status: Active Protocol: Document 06/10/20 14:30 AW (Rec: 06/10/20 17:51 AW [email or web address]) OP-PT Balance Assessment Sitting Balance Static Sitting Balance Ability Good Dynamic Sitting Balance Ability Good Standing Balance Static Standing Balance Ability Fair Dynamic Standing Balance Ability Fair Device Used no AD Standing Balance Comments SLS R and L equal on multiple trials: 8 sec, 6 sec, 8 sec Balance Tests Single Limb Standing Single Limb- Right 8,6,8 Single Limb- Left 8,8,6 Mccann Fall Scale Copyright Permission PT-OP-E Functional Tests Start: 06/10/20 14:36 Freq: Status: Active Protocol: Document 06/10/20 14:30 AW (Rec: 06/10/20 18:01 AW [email or web address]) Functional Tests Single Leg Squat Test Score from 26.5 mat table bilaterally PT-OP-F Manual Assessment Start: 06/10/20 14:36 Freq: Status: Active Protocol: Document 06/10/20 14:30 AW (Rec: 06/10/20 17:51 AW [email or web address]) Manual Assessments Soft Tissue Assessment Soft Tissue Mobility Assessment Significant tone bilateral lumbar paraspinals PT-OP-G Mobility & Gait Start: 06/10/20 14:36 Freq: Status: Active Protocol: Document 06/10/20 14:30 AW (Rec: 06/10/20 17:51 AW [email or web address]) OP Mobility Evaluation Transfers Sit to Stand (+) nikki's sign on multiple observed attempts OP Gait Assessment Gait Gait Assistance Required: Independent Distance (Feet) 200 Assistive Devices Assistive Device None Gait Deviations General Gait Pattern Antalgic,Decreased Stride Length,Decreased Feet Clearance,Lateral Trunk Lean Factors Limiting Gait Function Factors Limiting Gait Function Decreased Activity Tolerance, Decreased Sensation,Decreased Strength,Limited Range of Motion,Pain,Poor Balance Comments Gait Comments Antalgic gait notable for increased trunk rotation to the right and right lateral lean. High steppage gait R>L to compensate for reduced foot clearance. PT-OP-H Neuro Start: 06/10/20 14:36 Freq: Status: Active Protocol: Document 06/10/20 14:30 AW (Rec: 06/10/20 17:51 AW [email or web address]) Sensation Evaluation Gross Sensation Gross Sensation Left LE Impaired,Right LE Impaired Sensation Description Numbness,Tingling Dermatome Impairments L5 Deep Tendon Reflex & Clonus Assessment Deep Tendon Reflex Bilateral Achilles Deep Tendon Reflex 0 Absent Bilateral Patellar Deep Tendon Reflex 2+ Normal PT-OP-J Posture/Palpation/Skin Start: 06/10/20 14:36 Freq: Status: Active Protocol: Document 06/10/20 14:30 AW (Rec: 06/10/20 17:51 AW [email or web address]) Posture Evaluation Comments Posture Comments Swayback with flat lumbar spine. Notable hinge at TL junction 2/2 hardware. PT-OP-K Range of Motion Start: 06/10/20 14:36 Freq: Status: Active Protocol: Document 06/10/20 14:30 AW (Rec: 06/10/20 18:00 AW [email or web address]) Lumbar Spine Range of Motion Lumbar Spine Active Degrees Testing Position Standing Flexion 35 Extension 8 ROM Limitations Soft Tissue Tightness,Pain Comments Side bending with fingertips 14 from the floor bilaterally . Rotation ~25% bilaterally. Hip Goniometric Range of Motion Hip ROM Limitations Comments B hip ROM WNL except IR <15 degrees. PT-OP-L Special Tests Start: 06/10/20 14:36 Freq: Status: Active Protocol: Document 06/10/20 14:30 AW (Rec: 06/10/20 18:00 AW [email or web address]) Special Tests Hip Special Tests Scour Test Test Results right hip positive for pain reproduction PT-OP-M Strength Start: 06/10/20 14:36 Freq: Status: Active Protocol: Document 06/10/20 14:30 AW (Rec: 06/10/20 18:00 AW [email or web address]) Hip Strength Hip Manual Muscle Testing Right Flexion (L2) 4 Good Extension (S1) 3+ Fair+ Abduction 4- Good- External Rotation 4+ Good+ Internal Rotation 4+ Good+ Left Flexion (L2) 4 Good Extension (S1) 3+ Fair+ Abduction 4- Good- External Rotation 4+ Good+ Internal Rotation 4+ Good+ Knee Strength Knee Manual Muscle Testing Right Flexion (S2) 4 Good Extension (L3) 5 Normal Left Flexion (S2) 4 Good Extension (L3) 5 Normal Ankle/Foot Strength Ankle and Foot Manual Muscle Testing Right Dorsiflexion (L4) 4+ Good+ Plantarflexion (S1) 4- Good- Left Dorsiflexion (L4) 4+ Good+ Plantarflexion (S1) 4- Good- Toe Strength Toe Manual Muscle Testing Right Great Toe Extension 4- Good- Comments Left great toe extension 4+/5 PT-OP-Q Treatments Start: 06/10/20 14:36 Freq: Status: Active Protocol: Document 07/24/20 13:03 HH (Rec: 07/24/20 16:24 HH [id number]) Cardio Equipment Recumbent Stepper (Sci-Fit) Duration (Minutes) 8 Resistance 2.5 Seat Position 11 Gym Equipment Shuttle Recovery SL squat Resistance #62 Shuttle Recovery Platform Stable Reps/Time 12 x3 Therapeutic Exercises Supine Exercises Asher test stretch Supine Exercise Name Asher test stretch Side bilateral Equipment Used 30 SH x 2 bridging Side bilateral Equipment Used yellow band at knees Reps/Minutes 8 x2 LTR Side bilateral Equipment Used red therapy ball Reps/Minutes 8x1 Sitting Exercises seated flexion Sitting Exercise Name trunk flexion Side bilateral Equipment Used red therapy ball Reps/Minutes 8 x 1 PT-OP-T Assessment and Plan Start: 06/10/20 14:36 Freq: Status: Active Protocol: Document 07/24/20 13:03 HH (Rec: 07/24/20 16:24 [id number]) Physical Therapy Assessment Goals Five Impairment ROM Short Term Goal (STG) 07/10 pt has been using sock aid for socks and shoe horn for shoes with laces. Maintenance And Utilities Supervisor Goal (LTG) Pt will be able to don shoes and socks without shoe horn and without increase in baseline pain level. LTG Duration 3 months - 09/10/20 Four Impairment unable to particpate in recreational activities Maintenance And Utilities Supervisor Goal (LTG) Pt will complete 9 holes of golf without increase in baseline pain level LTG Duration 3 months - 09/10/20 Three Impairment medium risk of chronicity Prison Goal (LTG) Pt will score 3 or less total on STarT Back tool to demonstrate decreased likelihood of chronicity and catastrophization. LTG Duration 3 months - 09/10/20 Two Impairment balance Short Term Goal (STG) Pt will improve SLS from table at height of 24 bilaterally to demonstrate improved BLE strength and stabilty STG Duration 6 weeks - 07/22/20 Maintenance And Utilities Supervisor Goal (LTG) Pt will improve SLS from table at height of 22 bilaterally to demonstrate improved BLE strength and stabilty LTG Duration 3 months - 09/10/20 One Impairment Pt lacks appropriate exercise program Short Term Goal (STG) Pt will be independent with [facility] for support of therapy services provided in clinic STG Duration 6 weeks - 07/22/20 Assessment Summary Assessment Pt stated he has been doing more physical activities and tolerated them pretty well. Pt has good understanding of current POC which is to improve overall hip mobility, and core stability because of his surgically fused spine. Will begin to introduce hip hinge movements. Physical Therapy Plan Frequency and Duration Frequency of Treatment 2x/Week Duration of Treatment 3 months Plan of Care Start Date 06/10/20 Plan of Care End Date 09/10/20 Therapeutic Interventions Therapeutic Interventions Balance Training,Gait Training ,Home Exercise Program,Joint Mobilizations,Manual Therapy, Neuromuscular Re-education, Patient/Caregiver Education, Self-Care/Home Management,Soft Tissue Mobilization,Taping, Therapeutic Activities, Therapeutic Exercises Modalities Cold Pack/Ice Massage,Electric Stimulation,Hot Packs Next Visit Focus/Plan Next Note Type Treatment Note Next Visit Plan hip mobility trunk stabilization LE strengthening hip flexors stretch
--- NOTE | 2020-07-29 15:37 | PT.OTN ---
Current Diagnoses Spondylolisthesis, lumbar region (07/29/20) Spinal stenosis, lumbar region without neurogenic claudication (07/29/20) Postlaminectomy syndrome, not elsewhere classified (07/29/20) Difficulty in walking, not elsewhere classified (07/29/20) Abnormal posture (07/29/20) Physical Therapy Treatment Note PT-OP-A Visit Information Start: 06/10/20 14:36 Freq: Status: Active Protocol: Document 07/29/20 14:30 AW (Rec: 07/29/20 14:27 AW [id number]) Out-Patient Physical Therapy Visit Information Visit Information Visit Type Treatment Note Visit Start Time 13:47 Visit Stop Time 14:30 Total Visit Minutes 43 Visit Number 15 Number of REPLANTER Visits 0 Evaluation Information Evaluation Date 06/10/20 PT-OP-B Current Condition Start: 06/10/20 14:36 Freq: Status: Active Protocol: Document 06/10/20 14:30 AW (Rec: 06/10/20 15:22 AW [id number]) Current Condition History of Current Condition Onset Date years Current Complaints LBP, BLE pain (left worse than right) History of Current Condition Pt has had three lumbar surgeries. The first was 20 years ago - a laminotomy which provided relief for ~10 years . Second surgery 10 years ago was laminectomy which provided relief for a while. He started to have pain again about a year ago and had TLIF two months ago. He's been trying to take it easy since surgery. He complains he is unable to walk or stand >10 min due to pain which he describes as stiffness. He is unable to bend far enough to comfortably reach his feet, interfering with dressing and other self-care tasks. He also has pain in his hips after sitting more than 10 minutes. When he gets up from resting position, he tends to walk in bent-forward position at first. Pt also reports numbness or dull light touch sensation in bilateral feet which he says is getting better little by little since surgery. Prior Treatments and Tests - April 2020: L3-S1 TLIF, L2 -3 hemilami - Prior PT for back pain Future Testing and Treatments Planned None identified Treatment Goals Patient/Caregiver Goals Pt would like to get back to golf in a few months. Have ROM to be able to don shoes/socks more easily, be able to lift 40 pounds, and generally increase BLE strength. Prior Functional Status Baseline Function- ADL's Independent Baseline Function- Mobility Independent Baseline Function- Gait no AD except in the one week following surgery Baseline Function- Work/School Pt is retired. 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 Needs to use a shoe horn Functional Limitations- Mobility/Gait Antalgic. Pt ambulates with significant R trunk rotation and R lateral lean. Also demonstrates steppage gait R>L for clearance of right foot. Functional Limitations- Recreation/ Unable to participate in golf. Hobbies Functional Limitations- Other Unable to lift more than light grocery bags without pain. PT-OP-C Subjective Start: 06/10/20 14:36 Freq: Status: Active Protocol: Document 07/29/20 14:30 AW (Rec: 07/29/20 14:27 AW [id number]) OP-PT Subjective Patient Comments Patient Comments I'm getting my socks on and off with more ease and getting in and out of bed with less trouble. I took my walker back to [facility] Patient Reported Progress Improving PT-OP-D Balance Start: 06/10/20 14:36 Freq: Status: Active Protocol: Document 06/10/20 14:30 AW (Rec: 06/10/20 17:51 AW [email or web address]) OP-PT Balance Assessment Sitting Balance Static Sitting Balance Ability Good Dynamic Sitting Balance Ability Good Standing Balance Static Standing Balance Ability Fair Dynamic Standing Balance Ability Fair Device Used no AD Standing Balance Comments SLS R and L equal on multiple trials: 8 sec, 6 sec, 8 sec Balance Tests Single Limb Standing Single Limb- Right 8,6,8 Single Limb- Left 8,8,6 Mccann Fall Scale Copyright Permission PT-OP-E Functional Tests Start: 06/10/20 14:36 Freq: Status: Active Protocol: Document 06/10/20 14:30 AW (Rec: 06/10/20 18:01 AW [email or web address]) Functional Tests Single Leg Squat Test Score from 26.5 mat table bilaterally PT-OP-F Manual Assessment Start: 06/10/20 14:36 Freq: Status: Active Protocol: Document 06/10/20 14:30 AW (Rec: 06/10/20 17:51 AW [email or web address]) Manual Assessments Soft Tissue Assessment Soft Tissue Mobility Assessment Significant tone bilateral lumbar paraspinals PT-OP-G Mobility & Gait Start: 06/10/20 14:36 Freq: Status: Active Protocol: Document 06/10/20 14:30 AW (Rec: 06/10/20 17:51 AW [email or web address]) OP Mobility Evaluation Transfers Sit to Stand (+) nikki's sign on multiple observed attempts OP Gait Assessment Gait Gait Assistance Required: Independent Distance (Feet) 200 Assistive Devices Assistive Device None Gait Deviations General Gait Pattern Antalgic,Decreased Stride Length,Decreased Feet Clearance,Lateral Trunk Lean Factors Limiting Gait Function Factors Limiting Gait Function Decreased Activity Tolerance, Decreased Sensation,Decreased Strength,Limited Range of Motion,Pain,Poor Balance Comments Gait Comments Antalgic gait notable for increased trunk rotation to the right and right lateral lean. High steppage gait R>L to compensate for reduced foot clearance. PT-OP-H Neuro Start: 06/10/20 14:36 Freq: Status: Active Protocol: Document 06/10/20 14:30 AW (Rec: 06/10/20 17:51 AW [email or web address]) Sensation Evaluation Gross Sensation Gross Sensation Left LE Impaired,Right LE Impaired Sensation Description Numbness,Tingling Dermatome Impairments L5 Deep Tendon Reflex & Clonus Assessment Deep Tendon Reflex Bilateral Achilles Deep Tendon Reflex 0 Absent Bilateral Patellar Deep Tendon Reflex 2+ Normal PT-OP-J Posture/Palpation/Skin Start: 06/10/20 14:36 Freq: Status: Active Protocol: Document 06/10/20 14:30 AW (Rec: 06/10/20 17:51 AW [email or web address]) Posture Evaluation Comments Posture Comments Swayback with flat lumbar spine. Notable hinge at TL junction 2/2 hardware. PT-OP-K Range of Motion Start: 06/10/20 14:36 Freq: Status: Active Protocol: Document 06/10/20 14:30 AW (Rec: 06/10/20 18:00 AW [email or web address]) Lumbar Spine Range of Motion Lumbar Spine Active Degrees Testing Position Standing Flexion 35 Extension 8 ROM Limitations Soft Tissue Tightness,Pain Comments Side bending with fingertips 14 from the floor bilaterally . Rotation ~25% bilaterally. Hip Goniometric Range of Motion Hip ROM Limitations Comments B hip ROM WNL except IR <15 degrees. PT-OP-L Special Tests Start: 06/10/20 14:36 Freq: Status: Active Protocol: Document 06/10/20 14:30 AW (Rec: 06/10/20 18:00 AW [email or web address]) Special Tests Hip Special Tests Scour Test Test Results right hip positive for pain reproduction PT-OP-M Strength Start: 06/10/20 14:36 Freq: Status: Active Protocol: Document 06/10/20 14:30 AW (Rec: 06/10/20 18:00 AW [email or web address]) Hip Strength Hip Manual Muscle Testing Right Flexion (L2) 4 Good Extension (S1) 3+ Fair+ Abduction 4- Good- External Rotation 4+ Good+ Internal Rotation 4+ Good+ Left Flexion (L2) 4 Good Extension (S1) 3+ Fair+ Abduction 4- Good- External Rotation 4+ Good+ Internal Rotation 4+ Good+ Knee Strength Knee Manual Muscle Testing Right Flexion (S2) 4 Good Extension (L3) 5 Normal Left Flexion (S2) 4 Good Extension (L3) 5 Normal Ankle/Foot Strength Ankle and Foot Manual Muscle Testing Right Dorsiflexion (L4) 4+ Good+ Plantarflexion (S1) 4- Good- Left Dorsiflexion (L4) 4+ Good+ Plantarflexion (S1) 4- Good- Toe Strength Toe Manual Muscle Testing Right Great Toe Extension 4- Good- Comments Left great toe extension 4+/5 PT-OP-Q Treatments Start: 06/10/20 14:36 Freq: Status: Active Protocol: Document 07/29/20 14:30 AW (Rec: 07/29/20 14:27 AW [id number]) Cardio Equipment Recumbent Stepper (Sci-Fit) Duration (Minutes) 8 Resistance 2.5 Seat Position 11 Gym Equipment Shuttle Recovery SL squat Resistance #62 Shuttle Recovery Platform Stable Reps/Time 12 x3 Therapeutic Exercises Supine Exercises HS curl Supine Exercise Name HS curl Equipment Used red theraball Reps/Minutes 2x 10 Comments cued knee alignment Asher test stretch Supine Exercise Name Asher test stretch Side bilateral Equipment Used 30 SH x 2 bridging Side bilateral Equipment Used yellow band at knees Reps/Minutes 8 x2 LTR Side bilateral Equipment Used red therapy ball Reps/Minutes 8x1 piriformis stretch Side bilateral Reps/Minutes 15 sec x 5 Comments more restricted right side Sitting Exercises seated flexion Sitting Exercise Name trunk flexion Side bilateral Equipment Used red therapy ball Reps/Minutes 8 x 1 PT-OP-T Assessment and Plan Start: 06/10/20 14:36 Freq: Status: Active Protocol: Document 07/29/20 14:30 AW (Rec: 07/29/20 15:37 AW [email or web address]) Physical Therapy Assessment Goals Five Impairment ROM Short Term Goal (STG) 07/10 pt has been using sock aid for socks and shoe horn for shoes with laces. Display Artist Goal (LTG) Pt will be able to don shoes and socks without shoe horn and without increase in baseline pain level. LTG Duration 3 months - 09/10/20 Four Impairment unable to particpate in recreational activities [facility] Goal (LTG) Pt will complete 9 holes of golf without increase in baseline pain level LTG Duration 3 months - 09/10/20 Three Impairment medium risk of chronicity Display Artist Goal (LTG) Pt will score 3 or less total on STarT Back tool to demonstrate decreased likelihood of chronicity and catastrophization. LTG Duration 3 months - 09/10/20 Two Impairment balance Short Term Goal (STG) Pt will improve SLS from table at height of 24 bilaterally to demonstrate improved BLE strength and stabilty STG Duration 6 weeks - 07/22/20 [facility] Goal (LTG) Pt will improve SLS from table at height of 22 bilaterally to demonstrate improved BLE strength and stabilty LTG Duration 3 months - 09/10/20 One Impairment Pt lacks appropriate exercise program Short Term Goal (STG) Pt will be independent with [facility] for support of therapy services provided in clinic STG Duration 6 weeks - 07/22/20 Assessment Summary Assessment Continued to focus on hip mobility and core stabilization. Pt notes progression in strength but remains limited in activity tolerance. Physical Therapy Plan Frequency and Duration Frequency of Treatment 2x/Week Duration of Treatment 3 months Plan of Care Start Date 06/10/20 Plan of Care End Date 09/10/20 Therapeutic Interventions Therapeutic Interventions Balance Training,Gait Training ,Home Exercise Program,Joint Mobilizations,Manual Therapy, Neuromuscular Re-education, Patient/Caregiver Education, Self-Care/Home Management,Soft Tissue Mobilization,Taping, Therapeutic Activities, Therapeutic Exercises Modalities Cold Pack/Ice Massage,Electric Stimulation,Hot Packs Next Visit Focus/Plan Next Note Type Treatment Note Next Visit Plan hip mobility trunk stabilization LE strengthening hip flexors stretch
--- NOTE | 2020-07-31 13:49 | PT.OTN ---
Current Diagnoses Spondylolisthesis, lumbar region (07/31/20) Spinal stenosis, lumbar region without neurogenic claudication (07/31/20) Postlaminectomy syndrome, not elsewhere classified (07/31/20) Difficulty in walking, not elsewhere classified (07/31/20) Abnormal posture (07/31/20) Physical Therapy Treatment Note PT-OP-A Visit Information Start: 06/10/20 14:36 Freq: Status: Active Protocol: Document 07/31/20 13:00 HH (Rec: 07/31/20 13:49 HH [id number]) Out-Patient Physical Therapy Visit Information Visit Information Visit Type Treatment Note Visit Start Time 13:00 Visit Stop Time 13:45 Total Visit Minutes 45 Visit Number 16 Number of WEIGHT LOSS PHYSICIAN Visits 0 PT-OP-B Current Condition Start: 06/10/20 14:36 Freq: Status: Active Protocol: Document 06/10/20 14:30 AW (Rec: 06/10/20 15:22 AW [id number]) Current Condition History of Current Condition Onset Date years Current Complaints LBP, BLE pain (left worse than right) History of Current Condition Pt has had three lumbar surgeries. The first was 20 years ago - a laminotomy which provided relief for ~10 years . Second surgery 10 years ago was laminectomy which provided relief for a while. He started to have pain again about a year ago and had TLIF two months ago. He's been trying to take it easy since surgery. He complains he is unable to walk or stand >10 min due to pain which he describes as stiffness. He is unable to bend far enough to comfortably reach his feet, interfering with dressing and other self-care tasks. He also has pain in his hips after sitting more than 10 minutes. When he gets up from resting position, he tends to walk in bent-forward position at first. Pt also reports numbness or dull light touch sensation in bilateral feet which he says is getting better little by little since surgery. Prior Treatments and Tests - April 2020: L3-S1 TLIF, L2 -3 hemilami - Prior PT for back pain Future Testing and Treatments Planned None identified Treatment Goals Patient/Caregiver Goals Pt would like to get back to golf in a few months. Have ROM to be able to don shoes/socks more easily, be able to lift 40 pounds, and generally increase BLE strength. Prior Functional Status Baseline Function- ADL's Independent Baseline Function- Mobility Independent Baseline Function- Gait no AD except in the one week following surgery Baseline Function- Work/School Pt is retired. 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 Needs to use a shoe horn Functional Limitations- Mobility/Gait Antalgic. Pt ambulates with significant R trunk rotation and R lateral lean. Also demonstrates steppage gait R>L for clearance of right foot. Functional Limitations- Recreation/ Unable to participate in golf. Hobbies Functional Limitations- Other Unable to lift more than light grocery bags without pain. PT-OP-C Subjective Start: 06/10/20 14:36 Freq: Status: Active Protocol: Document 07/31/20 13:00 HH (Rec: 07/31/20 13:49 HH [id number]) OP-PT Subjective Patient Comments Patient Comments I got sore from last visit so im kind of stiff today but not too bad. Patient Reported Progress Improving PT-OP-D Balance Start: 06/10/20 14:36 Freq: Status: Active Protocol: Document 06/10/20 14:30 AW (Rec: 06/10/20 17:51 AW [email or web address]) OP-PT Balance Assessment Sitting Balance Static Sitting Balance Ability Good Dynamic Sitting Balance Ability Good Standing Balance Static Standing Balance Ability Fair Dynamic Standing Balance Ability Fair Device Used no AD Standing Balance Comments SLS R and L equal on multiple trials: 8 sec, 6 sec, 8 sec Balance Tests Single Limb Standing Single Limb- Right 8,6,8 Single Limb- Left 8,8,6 Mccann Fall Scale Copyright Permission PT-OP-E Functional Tests Start: 06/10/20 14:36 Freq: Status: Active Protocol: Document 06/10/20 14:30 AW (Rec: 06/10/20 18:01 AW [email or web address]) Functional Tests Single Leg Squat Test Score from 26.5 mat table bilaterally PT-OP-F Manual Assessment Start: 06/10/20 14:36 Freq: Status: Active Protocol: Document 06/10/20 14:30 AW (Rec: 06/10/20 17:51 AW [email or web address]) Manual Assessments Soft Tissue Assessment Soft Tissue Mobility Assessment Significant tone bilateral lumbar paraspinals PT-OP-G Mobility & Gait Start: 06/10/20 14:36 Freq: Status: Active Protocol: Document 06/10/20 14:30 AW (Rec: 06/10/20 17:51 AW [email or web address]) OP Mobility Evaluation Transfers Sit to Stand (+) nikki's sign on multiple observed attempts OP Gait Assessment Gait Gait Assistance Required: Independent Distance (Feet) 200 Assistive Devices Assistive Device None Gait Deviations General Gait Pattern Antalgic,Decreased Stride Length,Decreased Feet Clearance,Lateral Trunk Lean Factors Limiting Gait Function Factors Limiting Gait Function Decreased Activity Tolerance, Decreased Sensation,Decreased Strength,Limited Range of Motion,Pain,Poor Balance Comments Gait Comments Antalgic gait notable for increased trunk rotation to the right and right lateral lean. High steppage gait R>L to compensate for reduced foot clearance. PT-OP-H Neuro Start: 06/10/20 14:36 Freq: Status: Active Protocol: Document 06/10/20 14:30 AW (Rec: 06/10/20 17:51 AW [email or web address]) Sensation Evaluation Gross Sensation Gross Sensation Left LE Impaired,Right LE Impaired Sensation Description Numbness,Tingling Dermatome Impairments L5 Deep Tendon Reflex & Clonus Assessment Deep Tendon Reflex Bilateral Achilles Deep Tendon Reflex 0 Absent Bilateral Patellar Deep Tendon Reflex 2+ Normal PT-OP-J Posture/Palpation/Skin Start: 06/10/20 14:36 Freq: Status: Active Protocol: Document 06/10/20 14:30 AW (Rec: 06/10/20 17:51 AW [email or web address]) Posture Evaluation Comments Posture Comments Swayback with flat lumbar spine. Notable hinge at TL junction 2/2 hardware. PT-OP-K Range of Motion Start: 06/10/20 14:36 Freq: Status: Active Protocol: Document 06/10/20 14:30 AW (Rec: 06/10/20 18:00 AW [email or web address]) Lumbar Spine Range of Motion Lumbar Spine Active Degrees Testing Position Standing Flexion 35 Extension 8 ROM Limitations Soft Tissue Tightness,Pain Comments Side bending with fingertips 14 from the floor bilaterally . Rotation ~25% bilaterally. Hip Goniometric Range of Motion Hip ROM Limitations Comments B hip ROM WNL except IR <15 degrees. PT-OP-L Special Tests Start: 06/10/20 14:36 Freq: Status: Active Protocol: Document 06/10/20 14:30 AW (Rec: 06/10/20 18:00 AW [email or web address]) Special Tests Hip Special Tests Scour Test Test Results right hip positive for pain reproduction PT-OP-M Strength Start: 06/10/20 14:36 Freq: Status: Active Protocol: Document 06/10/20 14:30 AW (Rec: 06/10/20 18:00 AW [email or web address]) Hip Strength Hip Manual Muscle Testing Right Flexion (L2) 4 Good Extension (S1) 3+ Fair+ Abduction 4- Good- External Rotation 4+ Good+ Internal Rotation 4+ Good+ Left Flexion (L2) 4 Good Extension (S1) 3+ Fair+ Abduction 4- Good- External Rotation 4+ Good+ Internal Rotation 4+ Good+ Knee Strength Knee Manual Muscle Testing Right Flexion (S2) 4 Good Extension (L3) 5 Normal Left Flexion (S2) 4 Good Extension (L3) 5 Normal Ankle/Foot Strength Ankle and Foot Manual Muscle Testing Right Dorsiflexion (L4) 4+ Good+ Plantarflexion (S1) 4- Good- Left Dorsiflexion (L4) 4+ Good+ Plantarflexion (S1) 4- Good- Toe Strength Toe Manual Muscle Testing Right Great Toe Extension 4- Good- Comments Left great toe extension 4+/5 PT-OP-Q Treatments Start: 06/10/20 14:36 Freq: Status: Active Protocol: Document 07/31/20 13:00 HH (Rec: 07/31/20 13:49 HH [id number]) Cardio Equipment Recumbent Stepper (Sci-Fit) Duration (Minutes) 8 Resistance 2.5 Seat Position 11 Gym Equipment Shuttle Recovery SL squat Resistance #62 Shuttle Recovery Platform Stable Reps/Time 12 x3 Therapeutic Exercises Supine Exercises HS curl Supine Exercise Name HS curl Equipment Used red theraball Reps/Minutes 2x 10 Comments cued knee alignment Sitting Exercises seated flexion Sitting Exercise Name trunk flexion Side bilateral Equipment Used red therapy ball Reps/Minutes 8 x 1 Standing Exercises step up Standing Exercise Name lateral step up Side bilateral Resistance 6 step Equipment Used handrails Reps/Minutes 10 x2 hip hinge Standing Exercise Name cues on hip flexion Side bilateral Equipment Used with PVC pipe Reps/Minutes 10x2 Comments min cues needed. Manual Therapy Treatment Soft Tissue Mobilization QL Mobilization Type Sustained Pressure,Trigger Point Release Intensity/Depth Moderate Body Position Sidelying Comments significant tenderness noted at L QL PT-OP-T Assessment and Plan Start: 06/10/20 14:36 Freq: Status: Active Protocol: Document 07/31/20 13:00 HH (Rec: 07/31/20 13:49 HH [id number]) Physical Therapy Assessment Goals Five Impairment ROM Short Term Goal (STG) 07/10 pt has been using sock aid for socks and shoe horn for shoes with laces. Long-Term Goal (LTG) 07/31 goal met Pt is able to don shoes and socks without shoe horn and without increase in baseline pain level. LTG Duration 3 months - 09/10/20 Four Impairment unable to particpate in recreational activities Short Term Goal (STG) 07/31 pt has not been able to play golf yet Long-Term Goal (LTG) Pt will complete 9 holes of golf without increase in baseline pain level LTG Duration 3 months - 09/10/20 Three Impairment medium risk of chronicity Long-Term Goal (LTG) Pt will score 3 or less total on STarT Back tool to demonstrate decreased likelihood of chronicity and catastrophization. LTG Duration 3 months - 09/10/20 Two Impairment balance Short Term Goal (STG) Pt will improve SLS from table at height of 24 bilaterally to demonstrate improved BLE strength and stabilty STG Duration 6 weeks - 07/22/20 Long-Term Goal (LTG) Pt will improve SLS from table at height of 22 bilaterally to demonstrate improved BLE strength and stabilty LTG Duration 3 months - 09/10/20 One Impairment Pt lacks appropriate exercise program Short Term Goal (STG) Pt will be independent with [facility] for support of therapy services provided in clinic STG Duration 6 weeks - 07/22/20 Assessment Summary Assessment Noticed pt has increased tonicity at L QL today who stated it limits his trunk movements often. Pt did very well on hip hinge movement today and he is able to keep his spine neutral. Physical Therapy Plan Frequency and Duration Frequency of Treatment 2x/Week Duration of Treatment 3 months Plan of Care Start Date 06/10/20 Plan of Care End Date 09/10/20 Therapeutic Interventions Therapeutic Interventions Balance Training,Gait Training ,Home Exercise Program,Joint Mobilizations,Manual Therapy, Neuromuscular Re-education, Patient/Caregiver Education, Self-Care/Home Management,Soft Tissue Mobilization,Taping, Therapeutic Activities, Therapeutic Exercises Modalities Cold Pack/Ice Massage,Electric Stimulation,Hot Packs Next Visit Focus/Plan Next Note Type Treatment Note Next Visit Plan hip mobility trunk stabilization LE strengthening hip flexors stretch
--- NOTE | 2020-08-05 12:06 | PT.OTN ---
Current Diagnoses Spondylolisthesis, lumbar region (08/05/20) Spinal stenosis, lumbar region without neurogenic claudication (08/05/20) Postlaminectomy syndrome, not elsewhere classified (08/05/20) Difficulty in walking, not elsewhere classified (08/05/20) Abnormal posture (08/05/20) Physical Therapy Treatment Note PT-OP-A Visit Information Start: 06/10/20 14:36 Freq: Status: Active Protocol: Document 08/05/20 12:00 AW (Rec: 08/05/20 12:02 AW [id number]) Out-Patient Physical Therapy Visit Information Visit Information Visit Type Treatment Note Visit Start Time 11:18 Visit Stop Time 12:00 Total Visit Minutes 42 Visit Number 17 PT-OP-B Current Condition Start: 06/10/20 14:36 Freq: Status: Active Protocol: Document 06/10/20 14:30 AW (Rec: 06/10/20 15:22 AW [id number]) Current Condition History of Current Condition Onset Date years Current Complaints LBP, BLE pain (left worse than right) History of Current Condition Pt has had three lumbar surgeries. The first was 20 years ago - a laminotomy which provided relief for ~10 years . Second surgery 10 years ago was laminectomy which provided relief for a while. He started to have pain again about a year ago and had TLIF two months ago. He's been trying to take it easy since surgery. He complains he is unable to walk or stand >10 min due to pain which he describes as stiffness. He is unable to bend far enough to comfortably reach his feet, interfering with dressing and other self-care tasks. He also has pain in his hips after sitting more than 10 minutes. When he gets up from resting position, he tends to walk in bent-forward position at first. Pt also reports numbness or dull light touch sensation in bilateral feet which he says is getting better little by little since surgery. Prior Treatments and Tests - April 2020: L3-S1 TLIF, L2 -3 hemilami - Prior PT for back pain Future Testing and Treatments Planned None identified Treatment Goals Patient/Caregiver Goals Pt would like to get back to golf in a few months. Have ROM to be able to don shoes/socks more easily, be able to lift 40 pounds, and generally increase BLE strength. Prior Functional Status Baseline Function- ADL's Independent Baseline Function- Mobility Independent Baseline Function- Gait no AD except in the one week following surgery Baseline Function- Work/School Pt is retired. 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 Needs to use a shoe horn Functional Limitations- Mobility/Gait Antalgic. Pt ambulates with significant R trunk rotation and R lateral lean. Also demonstrates steppage gait R>L for clearance of right foot. Functional Limitations- Recreation/ Unable to participate in golf. Hobbies Functional Limitations- Other Unable to lift more than light grocery bags without pain. PT-OP-C Subjective Start: 06/10/20 14:36 Freq: Status: Active Protocol: Document 08/05/20 12:00 AW (Rec: 08/05/20 12:02 AW [id number]) OP-PT Subjective Patient Comments Patient Comments I've been working aorund the house a lot, up and down the stairs constantly. I'm sore again today. I do think my stamina overall is better. Patient Reported Progress Improving OP-PT Pain Assessment Home Pain Medication Use Pain Medications Used Vicodyn Home Pain Medication Frequency twice daily Patient Goal same dose since surgery; has stopped oxycodone PT-OP-D Balance Start: 06/10/20 14:36 Freq: Status: Active Protocol: Document 06/10/20 14:30 AW (Rec: 06/10/20 17:51 AW [email or web address]) OP-PT Balance Assessment Sitting Balance Static Sitting Balance Ability Good Dynamic Sitting Balance Ability Good Standing Balance Static Standing Balance Ability Fair Dynamic Standing Balance Ability Fair Device Used no AD Standing Balance Comments SLS R and L equal on multiple trials: 8 sec, 6 sec, 8 sec Balance Tests Single Limb Standing Single Limb- Right 8,6,8 Single Limb- Left 8,8,6 Mccann Fall Scale Copyright Permission PT-OP-E Functional Tests Start: 06/10/20 14:36 Freq: Status: Active Protocol: Document 06/10/20 14:30 AW (Rec: 06/10/20 18:01 AW [email or web address]) Functional Tests Single Leg Squat Test Score from 26.5 mat table bilaterally PT-OP-F Manual Assessment Start: 06/10/20 14:36 Freq: Status: Active Protocol: Document 06/10/20 14:30 AW (Rec: 06/10/20 17:51 AW [email or web address]) Manual Assessments Soft Tissue Assessment Soft Tissue Mobility Assessment Significant tone bilateral lumbar paraspinals PT-OP-G Mobility & Gait Start: 06/10/20 14:36 Freq: Status: Active Protocol: Document 06/10/20 14:30 AW (Rec: 06/10/20 17:51 AW [email or web address]) OP Mobility Evaluation Transfers Sit to Stand (+) nikki's sign on multiple observed attempts OP Gait Assessment Gait Gait Assistance Required: Independent Distance (Feet) 200 Assistive Devices Assistive Device None Gait Deviations General Gait Pattern Antalgic,Decreased Stride Length,Decreased Feet Clearance,Lateral Trunk Lean Factors Limiting Gait Function Factors Limiting Gait Function Decreased Activity Tolerance, Decreased Sensation,Decreased Strength,Limited Range of Motion,Pain,Poor Balance Comments Gait Comments Antalgic gait notable for increased trunk rotation to the right and right lateral lean. High steppage gait R>L to compensate for reduced foot clearance. PT-OP-H Neuro Start: 06/10/20 14:36 Freq: Status: Active Protocol: Document 06/10/20 14:30 AW (Rec: 06/10/20 17:51 AW [email or web address]) Sensation Evaluation Gross Sensation Gross Sensation Left LE Impaired,Right LE Impaired Sensation Description Numbness,Tingling Dermatome Impairments L5 Deep Tendon Reflex & Clonus Assessment Deep Tendon Reflex Bilateral Achilles Deep Tendon Reflex 0 Absent Bilateral Patellar Deep Tendon Reflex 2+ Normal PT-OP-J Posture/Palpation/Skin Start: 06/10/20 14:36 Freq: Status: Active Protocol: Document 06/10/20 14:30 AW (Rec: 06/10/20 17:51 AW [email or web address]) Posture Evaluation Comments Posture Comments Swayback with flat lumbar spine. Notable hinge at TL junction 2/2 hardware. PT-OP-K Range of Motion Start: 06/10/20 14:36 Freq: Status: Active Protocol: Document 06/10/20 14:30 AW (Rec: 06/10/20 18:00 AW [email or web address]) Lumbar Spine Range of Motion Lumbar Spine Active Degrees Testing Position Standing Flexion 35 Extension 8 ROM Limitations Soft Tissue Tightness,Pain Comments Side bending with fingertips 14 from the floor bilaterally . Rotation ~25% bilaterally. Hip Goniometric Range of Motion Hip ROM Limitations Comments B hip ROM WNL except IR <15 degrees. PT-OP-L Special Tests Start: 06/10/20 14:36 Freq: Status: Active Protocol: Document 06/10/20 14:30 AW (Rec: 06/10/20 18:00 AW [email or web address]) Special Tests Hip Special Tests Scour Test Test Results right hip positive for pain reproduction PT-OP-M Strength Start: 06/10/20 14:36 Freq: Status: Active Protocol: Document 06/10/20 14:30 AW (Rec: 06/10/20 18:00 AW [email or web address]) Hip Strength Hip Manual Muscle Testing Right Flexion (L2) 4 Good Extension (S1) 3+ Fair+ Abduction 4- Good- External Rotation 4+ Good+ Internal Rotation 4+ Good+ Left Flexion (L2) 4 Good Extension (S1) 3+ Fair+ Abduction 4- Good- External Rotation 4+ Good+ Internal Rotation 4+ Good+ Knee Strength Knee Manual Muscle Testing Right Flexion (S2) 4 Good Extension (L3) 5 Normal Left Flexion (S2) 4 Good Extension (L3) 5 Normal Ankle/Foot Strength Ankle and Foot Manual Muscle Testing Right Dorsiflexion (L4) 4+ Good+ Plantarflexion (S1) 4- Good- Left Dorsiflexion (L4) 4+ Good+ Plantarflexion (S1) 4- Good- Toe Strength Toe Manual Muscle Testing Right Great Toe Extension 4- Good- Comments Left great toe extension 4+/5 PT-OP-Q Treatments Start: 06/10/20 14:36 Freq: Status: Active Protocol: Document 08/05/20 12:00 AW (Rec: 08/05/20 12:02 AW [id number]) Cardio Equipment Recumbent Stepper (Sci-Fit) Duration (Minutes) 8 Resistance 2.8 Seat Position 11 Gym Equipment Shuttle Recovery SL squat Resistance #62 Shuttle Recovery Platform Stable Reps/Time 12 x3 Therapeutic Exercises Supine Exercises HS curl Supine Exercise Name HS curl Equipment Used red theraball Reps/Minutes 2x 10 Comments cued knee alignment LTR Side bilateral Equipment Used red therapy ball Reps/Minutes 8x1 Standing Exercises step up Standing Exercise Name lateral step up Side bilateral Resistance 6 step Equipment Used handrails Reps/Minutes 10 x2 hip hinge Standing Exercise Name cues on hip flexion Side bilateral Equipment Used with PVC pipe Reps/Minutes 5 min Comments progressed to lifting unweighted crate PT-OP-T Assessment and Plan Start: 06/10/20 14:36 Freq: Status: Active Protocol: Document 08/05/20 12:00 AW (Rec: 08/05/20 12:06 AW [id number]) Physical Therapy Assessment Goals Five Impairment ROM Short Term Goal (STG) 07/10 pt has been using sock aid for socks and shoe horn for shoes with laces. Penitentiary Goal (LTG) 07/31 goal met Pt is able to don shoes and socks without shoe horn and without increase in baseline pain level. LTG Duration 3 months - 09/10/20 Four Impairment unable to particpate in recreational activities Short Term Goal (STG) 07/31 pt has not been able to play golf yet Admin Prog Coord Goal (LTG) Pt will complete 9 holes of golf without increase in baseline pain level LTG Duration 3 months - 09/10/20 Three Impairment medium risk of chronicity Penitentiary Goal (LTG) Pt will score 3 or less total on STarT Back tool to demonstrate decreased likelihood of chronicity and catastrophization. LTG Duration 3 months - 09/10/20 Two Impairment balance Short Term Goal (STG) Pt will improve SLS from table at height of 24 bilaterally to demonstrate improved BLE strength and stabilty STG Duration 6 weeks - 07/22/20 Admin Prog Coord Goal (LTG) Pt will improve SLS from table at height of 22 bilaterally to demonstrate improved BLE strength and stabilty LTG Duration 3 months - 09/10/20 One Impairment Pt lacks appropriate exercise program Short Term Goal (STG) Pt will be independent with [facility] for support of therapy services provided in clinic STG Duration 6 weeks - 07/22/20 Assessment Summary Assessment Pt nearing independence with hip hinge and was able to progress to lifting an unweighted crate. Pt states overall endurance is improving . Physical Therapy Plan Frequency and Duration Frequency of Treatment 2x/Week Duration of Treatment 3 months Plan of Care Start Date 06/10/20 Plan of Care End Date 09/10/20 Therapeutic Interventions Therapeutic Interventions Balance Training,Gait Training ,Home Exercise Program,Joint Mobilizations,Manual Therapy, Neuromuscular Re-education, Patient/Caregiver Education, Self-Care/Home Management,Soft Tissue Mobilization,Taping, Therapeutic Activities, Therapeutic Exercises Modalities Cold Pack/Ice Massage,Electric Stimulation,Hot Packs Next Visit Focus/Plan Next Note Type Treatment Note Next Visit Plan hip mobility trunk stabilization LE strengthening hip flexors stretch
--- NOTE | 2020-08-07 16:20 | PT.OPPN ---
Current Diagnoses Spondylolisthesis, lumbar region (08/07/20) Spinal stenosis, lumbar region without neurogenic claudication (08/07/20) Postlaminectomy syndrome, not elsewhere classified (08/07/20) Difficulty in walking, not elsewhere classified (08/07/20) Abnormal posture (08/07/20) Physical Therapy Progress Note PT-OP-A Visit Information Start: 06/10/20 14:36 Freq: Status: Active Protocol: Document 08/07/20 15:16 HH (Rec: 08/07/20 16:19 HH [id number]) Out-Patient Physical Therapy Visit Information Visit Information Visit Type Treatment Note Visit Note f/u with Dr. Garvey next week Visit Start Time 15:18 Visit Stop Time 16:00 Total Visit Minutes 42 Visit Number 18 Number of LIFE SCIENCE TAXONOMIST Visits 0 PT-OP-B Current Condition Start: 06/10/20 14:36 Freq: Status: Active Protocol: Document 06/10/20 14:30 AW (Rec: 06/10/20 15:22 AW [id number]) Current Condition History of Current Condition Onset Date years Current Complaints LBP, BLE pain (left worse than right) History of Current Condition Pt has had three lumbar surgeries. The first was 20 years ago - a laminotomy which provided relief for ~10 years . Second surgery 10 years ago was laminectomy which provided relief for a while. He started to have pain again about a year ago and had TLIF two months ago. He's been trying to take it easy since surgery. He complains he is unable to walk or stand >10 min due to pain which he describes as stiffness. He is unable to bend far enough to comfortably reach his feet, interfering with dressing and other self-care tasks. He also has pain in his hips after sitting more than 10 minutes. When he gets up from resting position, he tends to walk in bent-forward position at first. Pt also reports numbness or dull light touch sensation in bilateral feet which he says is getting better little by little since surgery. Prior Treatments and Tests - April 2020: L3-S1 TLIF, L2 -3 hemilami - Prior PT for back pain Future Testing and Treatments Planned None identified Treatment Goals Patient/Caregiver Goals Pt would like to get back to golf in a few months. Have ROM to be able to don shoes/socks more easily, be able to lift 40 pounds, and generally increase BLE strength. Prior Functional Status Baseline Function- ADL's Independent Baseline Function- Mobility Independent Baseline Function- Gait no AD except in the one week following surgery Baseline Function- Work/School Pt is retired. 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 Needs to use a shoe horn Functional Limitations- Mobility/Gait Antalgic. Pt ambulates with significant R trunk rotation and R lateral lean. Also demonstrates steppage gait R>L for clearance of right foot. Functional Limitations- Recreation/ Unable to participate in golf. Hobbies Functional Limitations- Other Unable to lift more than light grocery bags without pain. PT-OP-C Subjective Start: 06/10/20 14:36 Freq: Status: Active Protocol: Document 08/07/20 15:16 HH (Rec: 08/07/20 16:19 HH [id number]) OP-PT Subjective Patient Comments Patient Comments Im overall more mobile since surgery but my numbness and tingling on my feet just never go away, same for my pain. Patient Reported Progress Improving PT-OP-D Balance Start: 06/10/20 14:36 Freq: Status: Active Protocol: Document 06/10/20 14:30 AW (Rec: 06/10/20 17:51 AW [email or web address]) OP-PT Balance Assessment Sitting Balance Static Sitting Balance Ability Good Dynamic Sitting Balance Ability Good Standing Balance Static Standing Balance Ability Fair Dynamic Standing Balance Ability Fair Device Used no AD Standing Balance Comments SLS R and L equal on multiple trials: 8 sec, 6 sec, 8 sec Balance Tests Single Limb Standing Single Limb- Right 8,6,8 Single Limb- Left 8,8,6 Mccann Fall Scale Copyright Permission Siobhan SHARMA, Siobhan RM, Karissa SJ. Development of a scale to identify the fall- prone patient. Can J Aging 1989;8;366-7. Cynthia Mccann (2009). Preventing patient falls. (2nd ed). Mccook: Miranda. PT-OP-E Functional Tests Start: 06/10/20 14:36 Freq: Status: Active Protocol: Document 06/10/20 14:30 AW (Rec: 06/10/20 18:01 AW [email or web address]) Functional Tests Single Leg Squat Test Score from 26.5 mat table bilaterally PT-OP-F Manual Assessment Start: 06/10/20 14:36 Freq: Status: Active Protocol: Document 06/10/20 14:30 AW (Rec: 06/10/20 17:51 AW [email or web address]) Manual Assessments Soft Tissue Assessment Soft Tissue Mobility Assessment Significant tone bilateral lumbar paraspinals PT-OP-G Mobility & Gait Start: 06/10/20 14:36 Freq: Status: Active Protocol: Document 06/10/20 14:30 AW (Rec: 06/10/20 17:51 AW [email or web address]) OP Mobility Evaluation Transfers Sit to Stand (+) nikki's sign on multiple observed attempts OP Gait Assessment Gait Gait Assistance Required: Independent Distance (Feet) 200 Assistive Devices Assistive Device None Gait Deviations General Gait Pattern Antalgic,Decreased Stride Length,Decreased Feet Clearance,Lateral Trunk Lean Factors Limiting Gait Function Factors Limiting Gait Function Decreased Activity Tolerance, Decreased Sensation,Decreased Strength,Limited Range of Motion,Pain,Poor Balance Comments Gait Comments Antalgic gait notable for increased trunk rotation to the right and right lateral lean. High steppage gait R>L to compensate for reduced foot clearance. PT-OP-H Neuro Start: 06/10/20 14:36 Freq: Status: Active Protocol: Document 06/10/20 14:30 AW (Rec: 06/10/20 17:51 AW [email or web address]) Sensation Evaluation Gross Sensation Gross Sensation Left LE Impaired,Right LE Impaired Sensation Description Numbness,Tingling Dermatome Impairments L5 Deep Tendon Reflex & Clonus Assessment Deep Tendon Reflex Bilateral Achilles Deep Tendon Reflex 0 Absent Bilateral Patellar Deep Tendon Reflex 2+ Normal PT-OP-J Posture/Palpation/Skin Start: 06/10/20 14:36 Freq: Status: Active Protocol: Document 06/10/20 14:30 AW (Rec: 06/10/20 17:51 AW [email or web address]) Posture Evaluation Comments Posture Comments Swayback with flat lumbar spine. Notable hinge at TL junction 2/2 hardware. PT-OP-K Range of Motion Start: 06/10/20 14:36 Freq: Status: Active Protocol: Document 06/10/20 14:30 AW (Rec: 06/10/20 18:00 AW [email or web address]) Lumbar Spine Range of Motion Lumbar Spine Active Degrees Testing Position Standing Flexion 35 Extension 8 ROM Limitations Soft Tissue Tightness,Pain Comments Side bending with fingertips 14 from the floor bilaterally . Rotation ~25% bilaterally. Hip Goniometric Range of Motion Hip ROM Limitations Comments B hip ROM WNL except IR <15 degrees. PT-OP-L Special Tests Start: 06/10/20 14:36 Freq: Status: Active Protocol: Document 06/10/20 14:30 AW (Rec: 06/10/20 18:00 AW [email or web address]) Special Tests Hip Special Tests Scour Test Test Results right hip positive for pain reproduction PT-OP-M Strength Start: 06/10/20 14:36 Freq: Status: Active Protocol: Document 06/10/20 14:30 AW (Rec: 06/10/20 18:00 AW [email or web address]) Hip Strength Hip Manual Muscle Testing Right Flexion (L2) 4 Good Extension (S1) 3+ Fair+ Abduction 4- Good- External Rotation 4+ Good+ Internal Rotation 4+ Good+ Left Flexion (L2) 4 Good Extension (S1) 3+ Fair+ Abduction 4- Good- External Rotation 4+ Good+ Internal Rotation 4+ Good+ Knee Strength Knee Manual Muscle Testing Right Flexion (S2) 4 Good Extension (L3) 5 Normal Left Flexion (S2) 4 Good Extension (L3) 5 Normal Ankle/Foot Strength Ankle and Foot Manual Muscle Testing Right Dorsiflexion (L4) 4+ Good+ Plantarflexion (S1) 4- Good- Left Dorsiflexion (L4) 4+ Good+ Plantarflexion (S1) 4- Good- Toe Strength Toe Manual Muscle Testing Right Great Toe Extension 4- Good- Comments Left great toe extension 4+/5 PT-OP-T Assessment and Plan Start: 06/10/20 14:36 Freq: Status: Active Protocol: Document 08/07/20 15:16 HH (Rec: 08/07/20 16:19 HH [id number]) Physical Therapy Assessment Goals Five Impairment ROM Short Term Goal (STG) 07/10 pt has been using sock aid for socks and shoe horn for shoes with laces. Longterm Goal (LTG) 07/31 goal met Pt is able to don shoes and socks without shoe horn and without increase in baseline pain level. LTG Duration 3 months - 09/10/20 Four Impairment unable to particpate in recreational activities Short Term Goal (STG) 07/31 pt has not been able to play golf yet Longterm Goal (LTG) Pt will complete 9 holes of golf without increase in baseline pain level LTG Duration 3 months - 09/10/20 Three Impairment medium risk of chronicity Longterm Goal (LTG) Pt will score 3 or less total on STarT Back tool to demonstrate decreased likelihood of chronicity and catastrophization. LTG Duration 3 months - 09/10/20 Two Impairment balance Short Term Goal (STG) Pt will improve SLS from table at height of 24 bilaterally to demonstrate improved BLE strength and stabilty STG Duration 6 weeks - 07/22/20 Longterm Goal (LTG) Pt will improve SLS from table at height of 22 bilaterally to demonstrate improved BLE strength and stabilty LTG Duration 3 months - 09/10/20 One Impairment Pt lacks appropriate exercise program Short Term Goal (STG) Pt will be independent with [facility] for support of therapy services provided in clinic STG Duration 6 weeks - 07/22/20 Assessment Summary Assessment pt reports his mobility has been slowly getting better since evaluation. However, pt' s pain and numbness/tingling to both feet have not gotten any better since surgery. This PT has noticed pt has poor sensation to light touch and pinpick from midshin down. Pt will follow up with surgeon Dr Kelsie Garvey next week to address regarding his slow recovery and new sensation loss. Physical Therapy Plan Frequency and Duration Frequency of Treatment 2x/Week Duration of Treatment 3 months Plan of Care Start Date 06/10/20 Plan of Care End Date 09/10/20 Therapeutic Interventions Therapeutic Interventions Balance Training,Gait Training ,Home Exercise Program,Joint Mobilizations,Manual Therapy, Neuromuscular Re-education, Patient/Caregiver Education, Self-Care/Home Management,Soft Tissue Mobilization,Taping, Therapeutic Activities, Therapeutic Exercises Modalities Cold Pack/Ice Massage,Electric Stimulation,Hot Packs Next Visit Focus/Plan Next Note Type Treatment Note Next Visit Plan hip mobility trunk stabilization LE strengthening hip flexors stretch
--- NOTE | 2020-08-12 12:15 | PT.OTN ---
Current Diagnoses Spondylolisthesis, lumbar region (08/12/20) Spinal stenosis, lumbar region without neurogenic claudication (08/12/20) Postlaminectomy syndrome, not elsewhere classified (08/12/20) Difficulty in walking, not elsewhere classified (08/12/20) Abnormal posture (08/12/20) Physical Therapy Treatment Note PT-OP-A Visit Information Start: 06/10/20 14:36 Freq: Status: Active Protocol: Document 08/12/20 12:00 AW (Rec: 08/12/20 12:07 AW [id number]) Out-Patient Physical Therapy Visit Information Visit Information Visit Type Treatment Note Visit Start Time 11:15 Visit Stop Time 12:12 Total Visit Minutes 57 Visit Number 19 Number of SOCIAL SERVICE COORDINATOR Visits 0 PT-OP-B Current Condition Start: 06/10/20 14:36 Freq: Status: Active Protocol: Document 06/10/20 14:30 AW (Rec: 06/10/20 15:22 AW [id number]) Current Condition History of Current Condition Onset Date years Current Complaints LBP, BLE pain (left worse than right) History of Current Condition Pt has had three lumbar surgeries. The first was 20 years ago - a laminotomy which provided relief for ~10 years . Second surgery 10 years ago was laminectomy which provided relief for a while. He started to have pain again about a year ago and had TLIF two months ago. He's been trying to take it easy since surgery. He complains he is unable to walk or stand >10 min due to pain which he describes as stiffness. He is unable to bend far enough to comfortably reach his feet, interfering with dressing and other self-care tasks. He also has pain in his hips after sitting more than 10 minutes. When he gets up from resting position, he tends to walk in bent-forward position at first. Pt also reports numbness or dull light touch sensation in bilateral feet which he says is getting better little by little since surgery. Prior Treatments and Tests - April 2020: L3-S1 TLIF, L2 -3 hemilami - Prior PT for back pain Future Testing and Treatments Planned None identified Treatment Goals Patient/Caregiver Goals Pt would like to get back to golf in a few months. Have ROM to be able to don shoes/socks more easily, be able to lift 40 pounds, and generally increase BLE strength. Prior Functional Status Baseline Function- ADL's Independent Baseline Function- Mobility Independent Baseline Function- Gait no AD except in the one week following surgery Baseline Function- Work/School Pt is retired. 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 Needs to use a shoe horn Functional Limitations- Mobility/Gait Antalgic. Pt ambulates with significant R trunk rotation and R lateral lean. Also demonstrates steppage gait R>L for clearance of right foot. Functional Limitations- Recreation/ Unable to participate in golf. Hobbies Functional Limitations- Other Unable to lift more than light grocery bags without pain. PT-OP-C Subjective Start: 06/10/20 14:36 Freq: Status: Active Protocol: Document 08/12/20 12:00 AW (Rec: 08/12/20 12:07 AW [id number]) OP-PT Subjective Patient Comments Patient Comments Pt reports frustration with ortho follow up and feels discouraged overall PT-OP-D Balance Start: 06/10/20 14:36 Freq: Status: Active Protocol: Document 06/10/20 14:30 AW (Rec: 06/10/20 17:51 AW [email or web address]) OP-PT Balance Assessment Sitting Balance Static Sitting Balance Ability Good Dynamic Sitting Balance Ability Good Standing Balance Static Standing Balance Ability Fair Dynamic Standing Balance Ability Fair Device Used no AD Standing Balance Comments SLS R and L equal on multiple trials: 8 sec, 6 sec, 8 sec Balance Tests Single Limb Standing Single Limb- Right 8,6,8 Single Limb- Left 8,8,6 Mccann Fall Scale Copyright Permission PT-OP-E Functional Tests Start: 06/10/20 14:36 Freq: Status: Active Protocol: Document 06/10/20 14:30 AW (Rec: 06/10/20 18:01 AW [email or web address]) Functional Tests Single Leg Squat Test Score from 26.5 mat table bilaterally PT-OP-F Manual Assessment Start: 06/10/20 14:36 Freq: Status: Active Protocol: Document 06/10/20 14:30 AW (Rec: 06/10/20 17:51 AW [email or web address]) Manual Assessments Soft Tissue Assessment Soft Tissue Mobility Assessment Significant tone bilateral lumbar paraspinals PT-OP-G Mobility & Gait Start: 06/10/20 14:36 Freq: Status: Active Protocol: Document 06/10/20 14:30 AW (Rec: 06/10/20 17:51 AW [email or web address]) OP Mobility Evaluation Transfers Sit to Stand (+) nikki's sign on multiple observed attempts OP Gait Assessment Gait Gait Assistance Required: Independent Distance (Feet) 200 Assistive Devices Assistive Device None Gait Deviations General Gait Pattern Antalgic,Decreased Stride Length,Decreased Feet Clearance,Lateral Trunk Lean Factors Limiting Gait Function Factors Limiting Gait Function Decreased Activity Tolerance, Decreased Sensation,Decreased Strength,Limited Range of Motion,Pain,Poor Balance Comments Gait Comments Antalgic gait notable for increased trunk rotation to the right and right lateral lean. High steppage gait R>L to compensate for reduced foot clearance. PT-OP-H Neuro Start: 06/10/20 14:36 Freq: Status: Active Protocol: Document 06/10/20 14:30 AW (Rec: 06/10/20 17:51 AW [email or web address]) Sensation Evaluation Gross Sensation Gross Sensation Left LE Impaired,Right LE Impaired Sensation Description Numbness,Tingling Dermatome Impairments L5 Deep Tendon Reflex & Clonus Assessment Deep Tendon Reflex Bilateral Achilles Deep Tendon Reflex 0 Absent Bilateral Patellar Deep Tendon Reflex 2+ Normal PT-OP-J Posture/Palpation/Skin Start: 06/10/20 14:36 Freq: Status: Active Protocol: Document 06/10/20 14:30 AW (Rec: 06/10/20 17:51 AW [email or web address]) Posture Evaluation Comments Posture Comments Swayback with flat lumbar spine. Notable hinge at TL junction 2/2 hardware. PT-OP-K Range of Motion Start: 06/10/20 14:36 Freq: Status: Active Protocol: Document 06/10/20 14:30 AW (Rec: 06/10/20 18:00 AW [email or web address]) Lumbar Spine Range of Motion Lumbar Spine Active Degrees Testing Position Standing Flexion 35 Extension 8 ROM Limitations Soft Tissue Tightness,Pain Comments Side bending with fingertips 14 from the floor bilaterally . Rotation ~25% bilaterally. Hip Goniometric Range of Motion Hip ROM Limitations Comments B hip ROM WNL except IR <15 degrees. PT-OP-L Special Tests Start: 06/10/20 14:36 Freq: Status: Active Protocol: Document 06/10/20 14:30 AW (Rec: 06/10/20 18:00 AW [email or web address]) Special Tests Hip Special Tests Scour Test Test Results right hip positive for pain reproduction PT-OP-M Strength Start: 06/10/20 14:36 Freq: Status: Active Protocol: Document 06/10/20 14:30 AW (Rec: 06/10/20 18:00 AW [email or web address]) Hip Strength Hip Manual Muscle Testing Right Flexion (L2) 4 Good Extension (S1) 3+ Fair+ Abduction 4- Good- External Rotation 4+ Good+ Internal Rotation 4+ Good+ Left Flexion (L2) 4 Good Extension (S1) 3+ Fair+ Abduction 4- Good- External Rotation 4+ Good+ Internal Rotation 4+ Good+ Knee Strength Knee Manual Muscle Testing Right Flexion (S2) 4 Good Extension (L3) 5 Normal Left Flexion (S2) 4 Good Extension (L3) 5 Normal Ankle/Foot Strength Ankle and Foot Manual Muscle Testing Right Dorsiflexion (L4) 4+ Good+ Plantarflexion (S1) 4- Good- Left Dorsiflexion (L4) 4+ Good+ Plantarflexion (S1) 4- Good- Toe Strength Toe Manual Muscle Testing Right Great Toe Extension 4- Good- Comments Left great toe extension 4+/5 PT-OP-Q Treatments Start: 06/10/20 14:36 Freq: Status: Active Protocol: Document 08/12/20 12:00 AW (Rec: 08/12/20 12:07 AW [id number]) Cardio Equipment Recumbent Stepper (Sci-Fit) Duration (Minutes) 8 Resistance 2.8 Seat Position 11 Gym Equipment Shuttle Recovery SL squat Resistance #75 Shuttle Recovery Platform Stable Reps/Time 12 x 3 Therapeutic Exercises Standing Exercises trunk rotation Standing Exercise Name trunk rotation Side bilateral Resistance level 1 Equipment Used Tb Reps/Minutes x 8 reps Comments with limited ROM, focus on core stab trunk anti rotation Standing Exercise Name trunk anti rotation Side bilateral Resistance level 1 Equipment Used TB Reps/Minutes x 10 reps step up Standing Exercise Name lateral step up Side bilateral Resistance 6 step Equipment Used no rails, SBA Reps/Minutes 10x3 hip hinge Standing Exercise Name cues on hip flexion Side bilateral Resistance level 1 TB anchored under feet Equipment Used with PVC pipe Reps/Minutes 5 min Manual Therapy Treatment Soft Tissue Mobilization QL Mobilization Type Sustained Pressure,Trigger Point Release Intensity/Depth Moderate Body Position Sidelying Comments significant tenderness noted at L QL PT-OP-R Modalities Start: 06/10/20 14:36 Freq: Status: Active Protocol: Document 08/12/20 12:00 AW (Rec: 08/12/20 12:14 AW [id number]) Hot Pack/Cold Pack Treatment Hot Pack Location lumbar Patient Position Hooklying Treatment Duration (minutes) 15 Patient Tolerance Good Comments end of session PT-OP-T Assessment and Plan Start: 06/10/20 14:36 Freq: Status: Active Protocol: Document 08/12/20 12:00 AW (Rec: 08/12/20 12:14 AW [id number]) Physical Therapy Assessment Goals Five Impairment ROM Short Term Goal (STG) 07/10 pt has been using sock aid for socks and shoe horn for shoes with laces. Group Home Goal (LTG) 07/31 goal met Pt is able to don shoes and socks without shoe horn and without increase in baseline pain level. LTG Duration 3 months - 09/10/20 Four Impairment unable to particpate in recreational activities Short Term Goal (STG) 07/31 pt has not been able to play golf yet Pouch Making Machine Operator Goal (LTG) Pt will complete 9 holes of golf without increase in baseline pain level LTG Duration 3 months - 09/10/20 Three Impairment medium risk of chronicity Group Home Goal (LTG) Pt will score 3 or less total on STarT Back tool to demonstrate decreased likelihood of chronicity and catastrophization. LTG Duration 3 months - 09/10/20 Two Impairment balance Short Term Goal (STG) Pt will improve SLS from table at height of 24 bilaterally to demonstrate improved BLE strength and stabilty STG Duration 6 weeks - 07/22/20 Pouch Making Machine Operator Goal (LTG) Pt will improve SLS from table at height of 22 bilaterally to demonstrate improved BLE strength and stabilty LTG Duration 3 months - 09/10/20 One Impairment Pt lacks appropriate exercise program Short Term Goal (STG) Pt will be independent with [facility] for support of therapy services provided in clinic STG Duration 6 weeks - 07/22/20 Assessment Summary Assessment Pt is leaving for [place] at the end of this week and will return to therapy on 08/21. His back pain remains moderately irritable and sensation to bilateral feet/ shins is compromised. Focused treatment today on hip mobility and strength with pt tolerating well. Physical Therapy Plan Frequency and Duration Frequency of Treatment 2x/Week Duration of Treatment 3 months Plan of Care Start Date 06/10/20 Plan of Care End Date 09/10/20 Therapeutic Interventions Therapeutic Interventions Balance Training,Gait Training ,Home Exercise Program,Joint Mobilizations,Manual Therapy, Neuromuscular Re-education, Patient/Caregiver Education, Self-Care/Home Management,Soft Tissue Mobilization,Taping, Therapeutic Activities, Therapeutic Exercises Modalities Cold Pack/Ice Massage,Electric Stimulation,Hot Packs Next Visit Focus/Plan Next Note Type Treatment Note Next Visit Plan hip mobility trunk stabilization LE strengthening hip flexors stretch
--- NOTE | 2020-08-21 12:09 | PT.OTN ---
Current Diagnoses Spondylolisthesis, lumbar region (08/21/20) Spinal stenosis, lumbar region without neurogenic claudication (08/21/20) Postlaminectomy syndrome, not elsewhere classified (08/21/20) Difficulty in walking, not elsewhere classified (08/21/20) Abnormal posture (08/21/20) Physical Therapy Treatment Note PT-OP-A Visit Information Start: 06/10/20 14:36 Freq: Status: Active Protocol: Document 08/21/20 11:22 HH (Rec: 08/21/20 12:09 HH [id number]) Out-Patient Physical Therapy Visit Information Visit Information Visit Type Treatment Note Visit Start Time 11:18 Visit Stop Time 12:00 Total Visit Minutes 42 Visit Number 20 Number of CORPORATE SECURITY MANAGER Visits 0 PT-OP-B Current Condition Start: 06/10/20 14:36 Freq: Status: Active Protocol: Document 06/10/20 14:30 AW (Rec: 06/10/20 15:22 AW [id number]) Current Condition History of Current Condition Onset Date years Current Complaints LBP, BLE pain (left worse than right) History of Current Condition Pt has had three lumbar surgeries. The first was 20 years ago - a laminotomy which provided relief for ~10 years . Second surgery 10 years ago was laminectomy which provided relief for a while. He started to have pain again about a year ago and had TLIF two months ago. He's been trying to take it easy since surgery. He complains he is unable to walk or stand >10 min due to pain which he describes as stiffness. He is unable to bend far enough to comfortably reach his feet, interfering with dressing and other self-care tasks. He also has pain in his hips after sitting more than 10 minutes. When he gets up from resting position, he tends to walk in bent-forward position at first. Pt also reports numbness or dull light touch sensation in bilateral feet which he says is getting better little by little since surgery. Prior Treatments and Tests - April 2020: L3-S1 TLIF, L2 -3 hemilami - Prior PT for back pain Future Testing and Treatments Planned None identified Treatment Goals Patient/Caregiver Goals Pt would like to get back to golf in a few months. Have ROM to be able to don shoes/socks more easily, be able to lift 40 pounds, and generally increase BLE strength. Prior Functional Status Baseline Function- ADL's Independent Baseline Function- Mobility Independent Baseline Function- Gait no AD except in the one week following surgery Baseline Function- Work/School Pt is retired. 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 Needs to use a shoe horn Functional Limitations- Mobility/Gait Antalgic. Pt ambulates with significant R trunk rotation and R lateral lean. Also demonstrates steppage gait R>L for clearance of right foot. Functional Limitations- Recreation/ Unable to participate in golf. Hobbies Functional Limitations- Other Unable to lift more than light grocery bags without pain. PT-OP-C Subjective Start: 06/10/20 14:36 Freq: Status: Active Protocol: Document 08/21/20 11:22 HH (Rec: 08/21/20 12:09 HH [id number]) OP-PT Subjective Patient Comments Patient Comments Qiana been walking short distance multiple times during my trip. walking >10 mins tend to get stiffer and same as the pain. I saw my old surgeon from [facility] and he thinks some of my pain is from one level above of my surgical site. PT-OP-D Balance Start: 06/10/20 14:36 Freq: Status: Active Protocol: Document 06/10/20 14:30 AW (Rec: 06/10/20 17:51 AW [email or web address]) OP-PT Balance Assessment Sitting Balance Static Sitting Balance Ability Good Dynamic Sitting Balance Ability Good Standing Balance Static Standing Balance Ability Fair Dynamic Standing Balance Ability Fair Device Used no AD Standing Balance Comments SLS R and L equal on multiple trials: 8 sec, 6 sec, 8 sec Balance Tests Single Limb Standing Single Limb- Right 8,6,8 Single Limb- Left 8,8,6 Mccann Fall Scale Copyright Permission PT-OP-E Functional Tests Start: 06/10/20 14:36 Freq: Status: Active Protocol: Document 06/10/20 14:30 AW (Rec: 06/10/20 18:01 AW [email or web address]) Functional Tests Single Leg Squat Test Score from 26.5 mat table bilaterally PT-OP-F Manual Assessment Start: 06/10/20 14:36 Freq: Status: Active Protocol: Document 06/10/20 14:30 AW (Rec: 06/10/20 17:51 AW [email or web address]) Manual Assessments Soft Tissue Assessment Soft Tissue Mobility Assessment Significant tone bilateral lumbar paraspinals PT-OP-G Mobility & Gait Start: 06/10/20 14:36 Freq: Status: Active Protocol: Document 06/10/20 14:30 AW (Rec: 06/10/20 17:51 AW [email or web address]) OP Mobility Evaluation Transfers Sit to Stand (+) nikki's sign on multiple observed attempts OP Gait Assessment Gait Gait Assistance Required: Independent Distance (Feet) 200 Assistive Devices Assistive Device None Gait Deviations General Gait Pattern Antalgic,Decreased Stride Length,Decreased Feet Clearance,Lateral Trunk Lean Factors Limiting Gait Function Factors Limiting Gait Function Decreased Activity Tolerance, Decreased Sensation,Decreased Strength,Limited Range of Motion,Pain,Poor Balance Comments Gait Comments Antalgic gait notable for increased trunk rotation to the right and right lateral lean. High steppage gait R>L to compensate for reduced foot clearance. PT-OP-H Neuro Start: 06/10/20 14:36 Freq: Status: Active Protocol: Document 06/10/20 14:30 AW (Rec: 06/10/20 17:51 AW [email or web address]) Sensation Evaluation Gross Sensation Gross Sensation Left LE Impaired,Right LE Impaired Sensation Description Numbness,Tingling Dermatome Impairments L5 Deep Tendon Reflex & Clonus Assessment Deep Tendon Reflex Bilateral Achilles Deep Tendon Reflex 0 Absent Bilateral Patellar Deep Tendon Reflex 2+ Normal PT-OP-J Posture/Palpation/Skin Start: 06/10/20 14:36 Freq: Status: Active Protocol: Document 06/10/20 14:30 AW (Rec: 06/10/20 17:51 AW [email or web address]) Posture Evaluation Comments Posture Comments Swayback with flat lumbar spine. Notable hinge at TL junction 2/2 hardware. PT-OP-K Range of Motion Start: 06/10/20 14:36 Freq: Status: Active Protocol: Document 06/10/20 14:30 AW (Rec: 06/10/20 18:00 AW [email or web address]) Lumbar Spine Range of Motion Lumbar Spine Active Degrees Testing Position Standing Flexion 35 Extension 8 ROM Limitations Soft Tissue Tightness,Pain Comments Side bending with fingertips 14 from the floor bilaterally . Rotation ~25% bilaterally. Hip Goniometric Range of Motion Hip ROM Limitations Comments B hip ROM WNL except IR <15 degrees. PT-OP-L Special Tests Start: 06/10/20 14:36 Freq: Status: Active Protocol: Document 06/10/20 14:30 AW (Rec: 06/10/20 18:00 AW [email or web address]) Special Tests Hip Special Tests Scour Test Test Results right hip positive for pain reproduction PT-OP-M Strength Start: 06/10/20 14:36 Freq: Status: Active Protocol: Document 06/10/20 14:30 AW (Rec: 06/10/20 18:00 AW [email or web address]) Hip Strength Hip Manual Muscle Testing Right Flexion (L2) 4 Good Extension (S1) 3+ Fair+ Abduction 4- Good- External Rotation 4+ Good+ Internal Rotation 4+ Good+ Left Flexion (L2) 4 Good Extension (S1) 3+ Fair+ Abduction 4- Good- External Rotation 4+ Good+ Internal Rotation 4+ Good+ Knee Strength Knee Manual Muscle Testing Right Flexion (S2) 4 Good Extension (L3) 5 Normal Left Flexion (S2) 4 Good Extension (L3) 5 Normal Ankle/Foot Strength Ankle and Foot Manual Muscle Testing Right Dorsiflexion (L4) 4+ Good+ Plantarflexion (S1) 4- Good- Left Dorsiflexion (L4) 4+ Good+ Plantarflexion (S1) 4- Good- Toe Strength Toe Manual Muscle Testing Right Great Toe Extension 4- Good- Comments Left great toe extension 4+/5 PT-OP-Q Treatments Start: 06/10/20 14:36 Freq: Status: Active Protocol: Document 08/21/20 11:22 HH (Rec: 08/21/20 12:09 HH [id number]) Cardio Equipment Recumbent Stepper (Sci-Fit) Duration (Minutes) 8 Resistance 2.8 Seat Position 11 Gym Equipment Shuttle Recovery SL squat Resistance #75 Shuttle Recovery Platform Stable Reps/Time 12 x 3 Therapeutic Exercises Supine Exercises SLR Side bilateral Reps/Minutes 8 x2 Comments cues on FRANCINE deadbug Equipment Used with red therapy ball Reps/Minutes 10 sec hold x5 Comments cues for flat back Standing Exercises squat Resistance with cable for scap retraction Equipment Used 10 lbs on cable Reps/Minutes 10 x2 Comments cues on FRANCINE hip hinge Equipment Used 7 lbs DB Reps/Minutes 8x2 Manual Therapy Treatment Soft Tissue Mobilization QL Mobilization Type Sustained Pressure,Trigger Point Release Intensity/Depth Moderate Body Position Sidelying Comments reduced tenderness noted at L QL PT-OP-R Modalities Start: 06/10/20 14:36 Freq: Status: Active Protocol: Document 08/12/20 12:00 AW (Rec: 08/12/20 12:14 AW [id number]) Hot Pack/Cold Pack Treatment Hot Pack Location lumbar Patient Position Hooklying Treatment Duration (minutes) 15 Patient Tolerance Good Comments end of session PT-OP-T Assessment and Plan Start: 06/10/20 14:36 Freq: Status: Active Protocol: Document 08/21/20 11:22 HH (Rec: 08/21/20 12:09 HH [id number]) Physical Therapy Assessment Goals Five Impairment ROM Short Term Goal (STG) 07/10 pt has been using sock aid for socks and shoe horn for shoes with laces. Homeopathic Doctor Goal (LTG) 07/31 goal met Pt is able to don shoes and socks without shoe horn and without increase in baseline pain level. LTG Duration 3 months - 09/10/20 Four Impairment unable to particpate in recreational activities Short Term Goal (STG) 07/31 pt has not been able to play golf yet Residential Goal (LTG) Pt will complete 9 holes of golf without increase in baseline pain level LTG Duration 3 months - 09/10/20 Three Impairment medium risk of chronicity Residential Goal (LTG) Pt will score 3 or less total on STarT Back tool to demonstrate decreased likelihood of chronicity and catastrophization. LTG Duration 3 months - 09/10/20 Two Impairment balance Short Term Goal (STG) Pt will improve SLS from table at height of 24 bilaterally to demonstrate improved BLE strength and stabilty STG Duration 6 weeks - 07/22/20 Homeopathic Doctor Goal (LTG) Pt will improve SLS from table at height of 22 bilaterally to demonstrate improved BLE strength and stabilty LTG Duration 3 months - 09/10/20 One Impairment Pt lacks appropriate exercise program Short Term Goal (STG) Pt will be independent with [facility] for support of therapy services provided in clinic STG Duration 6 weeks - 07/22/20 Assessment Summary Assessment Pt jeri session well today with focus on trunk/core stabilization. He does need cues to anti extend his back during LE movements. Will add more trunk stabilization ex as jeri Physical Therapy Plan Frequency and Duration Frequency of Treatment 2x/Week Duration of Treatment 3 months Plan of Care Start Date 06/10/20 Plan of Care End Date 09/10/20 Therapeutic Interventions Therapeutic Interventions Balance Training,Gait Training ,Home Exercise Program,Joint Mobilizations,Manual Therapy, Neuromuscular Re-education, Patient/Caregiver Education, Self-Care/Home Management,Soft Tissue Mobilization,Taping, Therapeutic Activities, Therapeutic Exercises Modalities Cold Pack/Ice Massage,Electric Stimulation,Hot Packs Next Visit Focus/Plan Next Note Type Treatment Note Next Visit Plan hip mobility trunk stabilization LE strengthening hip flexors stretch
--- NOTE | 2020-08-26 12:13 | PT.OTN ---
Current Diagnoses Spondylolisthesis, lumbar region (08/26/20) Spinal stenosis, lumbar region without neurogenic claudication (08/26/20) Postlaminectomy syndrome, not elsewhere classified (08/26/20) Difficulty in walking, not elsewhere classified (08/26/20) Abnormal posture (08/26/20) Physical Therapy Treatment Note PT-OP-A Visit Information Start: 06/10/20 14:36 Freq: Status: Active Protocol: Document 08/26/20 12:01 AW (Rec: 08/26/20 12:08 AW [id number]) Out-Patient Physical Therapy Visit Information Visit Information Visit Note KX modifier needed. Visit Start Time 11:18 Visit Stop Time 12:01 Total Visit Minutes 43 Visit Number 21 Number of WIRE REPAIRER Visits 0 PT-OP-B Current Condition Start: 06/10/20 14:36 Freq: Status: Active Protocol: Document 06/10/20 14:30 AW (Rec: 06/10/20 15:22 AW [id number]) Current Condition History of Current Condition Onset Date years Current Complaints LBP, BLE pain (left worse than right) History of Current Condition Pt has had three lumbar surgeries. The first was 20 years ago - a laminotomy which provided relief for ~10 years . Second surgery 10 years ago was laminectomy which provided relief for a while. He started to have pain again about a year ago and had TLIF two months ago. He's been trying to take it easy since surgery. He complains he is unable to walk or stand >10 min due to pain which he describes as stiffness. He is unable to bend far enough to comfortably reach his feet, interfering with dressing and other self-care tasks. He also has pain in his hips after sitting more than 10 minutes. When he gets up from resting position, he tends to walk in bent-forward position at first. Pt also reports numbness or dull light touch sensation in bilateral feet which he says is getting better little by little since surgery. Prior Treatments and Tests - April 2020: L3-S1 TLIF, L2 -3 hemilami - Prior PT for back pain Future Testing and Treatments Planned None identified Treatment Goals Patient/Caregiver Goals Pt would like to get back to golf in a few months. Have ROM to be able to don shoes/socks more easily, be able to lift 40 pounds, and generally increase BLE strength. Prior Functional Status Baseline Function- ADL's Independent Baseline Function- Mobility Independent Baseline Function- Gait no AD except in the one week following surgery Baseline Function- Work/School Pt is retired. 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 Needs to use a shoe horn Functional Limitations- Mobility/Gait Antalgic. Pt ambulates with significant R trunk rotation and R lateral lean. Also demonstrates steppage gait R>L for clearance of right foot. Functional Limitations- Recreation/ Unable to participate in golf. Hobbies Functional Limitations- Other Unable to lift more than light grocery bags without pain. PT-OP-C Subjective Start: 06/10/20 14:36 Freq: Status: Active Protocol: Document 08/26/20 12:01 AW (Rec: 08/26/20 12:08 AW [id number]) OP-PT Subjective Patient Comments Patient Comments Pt reports soreness and tight quads just above his knees. PT-OP-D Balance Start: 06/10/20 14:36 Freq: Status: Active Protocol: Document 06/10/20 14:30 AW (Rec: 06/10/20 17:51 AW [email or web address]) OP-PT Balance Assessment Sitting Balance Static Sitting Balance Ability Good Dynamic Sitting Balance Ability Good Standing Balance Static Standing Balance Ability Fair Dynamic Standing Balance Ability Fair Device Used no AD Standing Balance Comments SLS R and L equal on multiple trials: 8 sec, 6 sec, 8 sec Balance Tests Single Limb Standing Single Limb- Right 8,6,8 Single Limb- Left 8,8,6 Mccann Fall Scale Copyright Permission PT-OP-E Functional Tests Start: 06/10/20 14:36 Freq: Status: Active Protocol: Document 06/10/20 14:30 AW (Rec: 06/10/20 18:01 AW [email or web address]) Functional Tests Single Leg Squat Test Score from 26.5 mat table bilaterally PT-OP-F Manual Assessment Start: 06/10/20 14:36 Freq: Status: Active Protocol: Document 06/10/20 14:30 AW (Rec: 06/10/20 17:51 AW [email or web address]) Manual Assessments Soft Tissue Assessment Soft Tissue Mobility Assessment Significant tone bilateral lumbar paraspinals PT-OP-G Mobility & Gait Start: 06/10/20 14:36 Freq: Status: Active Protocol: Document 06/10/20 14:30 AW (Rec: 06/10/20 17:51 AW [email or web address]) OP Mobility Evaluation Transfers Sit to Stand (+) nikki's sign on multiple observed attempts OP Gait Assessment Gait Gait Assistance Required: Independent Distance (Feet) 200 Assistive Devices Assistive Device None Gait Deviations General Gait Pattern Antalgic,Decreased Stride Length,Decreased Feet Clearance,Lateral Trunk Lean Factors Limiting Gait Function Factors Limiting Gait Function Decreased Activity Tolerance, Decreased Sensation,Decreased Strength,Limited Range of Motion,Pain,Poor Balance Comments Gait Comments Antalgic gait notable for increased trunk rotation to the right and right lateral lean. High steppage gait R>L to compensate for reduced foot clearance. PT-OP-H Neuro Start: 06/10/20 14:36 Freq: Status: Active Protocol: Document 06/10/20 14:30 AW (Rec: 06/10/20 17:51 AW [email or web address]) Sensation Evaluation Gross Sensation Gross Sensation Left LE Impaired,Right LE Impaired Sensation Description Numbness,Tingling Dermatome Impairments L5 Deep Tendon Reflex & Clonus Assessment Deep Tendon Reflex Bilateral Achilles Deep Tendon Reflex 0 Absent Bilateral Patellar Deep Tendon Reflex 2+ Normal PT-OP-J Posture/Palpation/Skin Start: 06/10/20 14:36 Freq: Status: Active Protocol: Document 06/10/20 14:30 AW (Rec: 06/10/20 17:51 AW [email or web address]) Posture Evaluation Comments Posture Comments Swayback with flat lumbar spine. Notable hinge at TL junction 2/2 hardware. PT-OP-K Range of Motion Start: 06/10/20 14:36 Freq: Status: Active Protocol: Document 06/10/20 14:30 AW (Rec: 06/10/20 18:00 AW [email or web address]) Lumbar Spine Range of Motion Lumbar Spine Active Degrees Testing Position Standing Flexion 35 Extension 8 ROM Limitations Soft Tissue Tightness,Pain Comments Side bending with fingertips 14 from the floor bilaterally . Rotation ~25% bilaterally. Hip Goniometric Range of Motion Hip ROM Limitations Comments B hip ROM WNL except IR <15 degrees. PT-OP-L Special Tests Start: 06/10/20 14:36 Freq: Status: Active Protocol: Document 06/10/20 14:30 AW (Rec: 06/10/20 18:00 AW [email or web address]) Special Tests Hip Special Tests Scour Test Test Results right hip positive for pain reproduction PT-OP-M Strength Start: 06/10/20 14:36 Freq: Status: Active Protocol: Document 06/10/20 14:30 AW (Rec: 06/10/20 18:00 AW [email or web address]) Hip Strength Hip Manual Muscle Testing Right Flexion (L2) 4 Good Extension (S1) 3+ Fair+ Abduction 4- Good- External Rotation 4+ Good+ Internal Rotation 4+ Good+ Left Flexion (L2) 4 Good Extension (S1) 3+ Fair+ Abduction 4- Good- External Rotation 4+ Good+ Internal Rotation 4+ Good+ Knee Strength Knee Manual Muscle Testing Right Flexion (S2) 4 Good Extension (L3) 5 Normal Left Flexion (S2) 4 Good Extension (L3) 5 Normal Ankle/Foot Strength Ankle and Foot Manual Muscle Testing Right Dorsiflexion (L4) 4+ Good+ Plantarflexion (S1) 4- Good- Left Dorsiflexion (L4) 4+ Good+ Plantarflexion (S1) 4- Good- Toe Strength Toe Manual Muscle Testing Right Great Toe Extension 4- Good- Comments Left great toe extension 4+/5 PT-OP-Q Treatments Start: 06/10/20 14:36 Freq: Status: Active Protocol: Document 08/26/20 12:01 AW (Rec: 08/26/20 12:08 AW [id number]) Cardio Equipment Recumbent Stepper (Sci-Fit) Duration (Minutes) 8 Resistance 2.8 Seat Position 11 Gym Equipment Shuttle Recovery SL squat Resistance #75 Shuttle Recovery Platform Stable Reps/Time 12 x 3 Therapeutic Exercises Supine Exercises SLR Side bilateral Reps/Minutes 8 x2 Comments cues on FRANCINE deadbug Supine Exercise Name isometric - squeeze arms and legs together Equipment Used with red therapy ball Reps/Minutes 10 sec hold x5 Comments cues for flat back Standing Exercises trunk rotation Standing Exercise Name trunk rotation Side bilateral Resistance level 1 Equipment Used Tb Reps/Minutes x 8 reps Comments hand at chest, focus on core stab trunk anti rotation Standing Exercise Name trunk anti rotation Side bilateral Resistance level 1 Equipment Used TB Reps/Minutes x 10 reps Manual Therapy Treatment Soft Tissue Mobilization B distal quads Mobilization Type Myofascial Release,Sustained Pressure,Trigger Point Release Intensity/Depth Moderate Body Position Supine Comments + patellar mobs bilaterally. reduced trigger point irritability post-STM QL Mobilization Type Sustained Pressure,Trigger Point Release Intensity/Depth Moderate Body Position Sidelying PT-OP-R Modalities Start: 06/10/20 14:36 Freq: Status: Active Protocol: Document 08/12/20 12:00 AW (Rec: 08/12/20 12:14 AW [id number]) Hot Pack/Cold Pack Treatment Hot Pack Location lumbar Patient Position Hooklying Treatment Duration (minutes) 15 Patient Tolerance Good Comments end of session PT-OP-T Assessment and Plan Start: 06/10/20 14:36 Freq: Status: Active Protocol: Document 08/26/20 12:01 AW (Rec: 08/26/20 12:13 AW [id number]) Physical Therapy Assessment Goals Five Impairment ROM Short Term Goal (STG) 07/10 pt has been using sock aid for socks and shoe horn for shoes with laces. Senior Care Goal (LTG) 07/31 goal met Pt is able to don shoes and socks without shoe horn and without increase in baseline pain level. LTG Duration 3 months - 09/10/20 Four Impairment unable to particpate in recreational activities Short Term Goal (STG) 07/31 pt has not been able to play golf yet Senior Care Goal (LTG) Pt will complete 9 holes of golf without increase in baseline pain level LTG Duration 3 months - 09/10/20 Three Impairment medium risk of chronicity Child Care Coordinator Goal (LTG) Pt will score 3 or less total on STarT Back tool to demonstrate decreased likelihood of chronicity and catastrophization. LTG Duration 3 months - 09/10/20 Two Impairment balance Short Term Goal (STG) Pt will improve SLS from table at height of 24 bilaterally to demonstrate improved BLE strength and stabilty STG Duration 6 weeks - 07/22/20 Senior Care Goal (LTG) Pt will improve SLS from table at height of 22 bilaterally to demonstrate improved BLE strength and stabilty LTG Duration 3 months - 09/10/20 One Impairment Pt lacks appropriate exercise program Short Term Goal (STG) Pt will be independent with [facility] for support of therapy services provided in clinic STG Duration 6 weeks - 07/22/20 Assessment Summary Assessment Continued focus on core stabilization with pt noting improved awareness of trunk during daily tasks. Pt tolerated well. Physical Therapy Plan Frequency and Duration Frequency of Treatment 2x/Week Duration of Treatment 3 months Plan of Care Start Date 06/10/20 Plan of Care End Date 09/10/20 Therapeutic Interventions Therapeutic Interventions Balance Training,Gait Training ,Home Exercise Program,Joint Mobilizations,Manual Therapy, Neuromuscular Re-education, Patient/Caregiver Education, Self-Care/Home Management,Soft Tissue Mobilization,Taping, Therapeutic Activities, Therapeutic Exercises Modalities Cold Pack/Ice Massage,Electric Stimulation,Hot Packs Next Visit Focus/Plan Next Note Type Treatment Note Next Visit Plan hip mobility trunk stabilization LE strengthening hip flexors stretch
--- NOTE | 2020-08-28 12:12 | PT.OTN ---
Current Diagnoses Spondylolisthesis, lumbar region (08/28/20) Spinal stenosis, lumbar region without neurogenic claudication (08/28/20) Postlaminectomy syndrome, not elsewhere classified (08/28/20) Difficulty in walking, not elsewhere classified (08/28/20) Abnormal posture (08/28/20) Physical Therapy Treatment Note PT-OP-A Visit Information Start: 06/10/20 14:36 Freq: Status: Active Protocol: Document 08/28/20 11:19 HH (Rec: 08/28/20 12:12 HH [id number]) Out-Patient Physical Therapy Visit Information Visit Information Visit Type Treatment Note Visit Note KX modifier needed. Visit Start Time 11:18 Visit Stop Time 12:02 Total Visit Minutes 44 Visit Number 22 Number of SERVICE DOG TRAINER Visits 0 PT-OP-B Current Condition Start: 06/10/20 14:36 Freq: Status: Active Protocol: Document 06/10/20 14:30 AW (Rec: 06/10/20 15:22 AW [id number]) Current Condition History of Current Condition Onset Date years Current Complaints LBP, BLE pain (left worse than right) History of Current Condition Pt has had three lumbar surgeries. The first was 20 years ago - a laminotomy which provided relief for ~10 years . Second surgery 10 years ago was laminectomy which provided relief for a while. He started to have pain again about a year ago and had TLIF two months ago. He's been trying to take it easy since surgery. He complains he is unable to walk or stand >10 min due to pain which he describes as stiffness. He is unable to bend far enough to comfortably reach his feet, interfering with dressing and other self-care tasks. He also has pain in his hips after sitting more than 10 minutes. When he gets up from resting position, he tends to walk in bent-forward position at first. Pt also reports numbness or dull light touch sensation in bilateral feet which he says is getting better little by little since surgery. Prior Treatments and Tests - April 2020: L3-S1 TLIF, L2 -3 hemilami - Prior PT for back pain Future Testing and Treatments Planned None identified Treatment Goals Patient/Caregiver Goals Pt would like to get back to golf in a few months. Have ROM to be able to don shoes/socks more easily, be able to lift 40 pounds, and generally increase BLE strength. Prior Functional Status Baseline Function- ADL's Independent Baseline Function- Mobility Independent Baseline Function- Gait no AD except in the one week following surgery Baseline Function- Work/School Pt is retired. 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 Needs to use a shoe horn Functional Limitations- Mobility/Gait Antalgic. Pt ambulates with significant R trunk rotation and R lateral lean. Also demonstrates steppage gait R>L for clearance of right foot. Functional Limitations- Recreation/ Unable to participate in golf. Hobbies Functional Limitations- Other Unable to lift more than light grocery bags without pain. PT-OP-C Subjective Start: 06/10/20 14:36 Freq: Status: Active Protocol: Document 08/28/20 11:19 HH (Rec: 08/28/20 12:12 HH [id number]) OP-PT Subjective Patient Comments Patient Comments I decide to take this antiinflammatory medication for my stiffness and joint pain. I used to take it and i know its a strong one. PT-OP-D Balance Start: 06/10/20 14:36 Freq: Status: Active Protocol: Document 06/10/20 14:30 AW (Rec: 06/10/20 17:51 AW [email or web address]) OP-PT Balance Assessment Sitting Balance Static Sitting Balance Ability Good Dynamic Sitting Balance Ability Good Standing Balance Static Standing Balance Ability Fair Dynamic Standing Balance Ability Fair Device Used no AD Standing Balance Comments SLS R and L equal on multiple trials: 8 sec, 6 sec, 8 sec Balance Tests Single Limb Standing Single Limb- Right 8,6,8 Single Limb- Left 8,8,6 Mccann Fall Scale Copyright Permission PT-OP-E Functional Tests Start: 06/10/20 14:36 Freq: Status: Active Protocol: Document 06/10/20 14:30 AW (Rec: 06/10/20 18:01 AW [email or web address]) Functional Tests Single Leg Squat Test Score from 26.5 mat table bilaterally PT-OP-F Manual Assessment Start: 06/10/20 14:36 Freq: Status: Active Protocol: Document 06/10/20 14:30 AW (Rec: 06/10/20 17:51 AW [email or web address]) Manual Assessments Soft Tissue Assessment Soft Tissue Mobility Assessment Significant tone bilateral lumbar paraspinals PT-OP-G Mobility & Gait Start: 06/10/20 14:36 Freq: Status: Active Protocol: Document 06/10/20 14:30 AW (Rec: 06/10/20 17:51 AW [email or web address]) OP Mobility Evaluation Transfers Sit to Stand (+) nikki's sign on multiple observed attempts OP Gait Assessment Gait Gait Assistance Required: Independent Distance (Feet) 200 Assistive Devices Assistive Device None Gait Deviations General Gait Pattern Antalgic,Decreased Stride Length,Decreased Feet Clearance,Lateral Trunk Lean Factors Limiting Gait Function Factors Limiting Gait Function Decreased Activity Tolerance, Decreased Sensation,Decreased Strength,Limited Range of Motion,Pain,Poor Balance Comments Gait Comments Antalgic gait notable for increased trunk rotation to the right and right lateral lean. High steppage gait R>L to compensate for reduced foot clearance. PT-OP-H Neuro Start: 06/10/20 14:36 Freq: Status: Active Protocol: Document 06/10/20 14:30 AW (Rec: 06/10/20 17:51 AW [email or web address]) Sensation Evaluation Gross Sensation Gross Sensation Left LE Impaired,Right LE Impaired Sensation Description Numbness,Tingling Dermatome Impairments L5 Deep Tendon Reflex & Clonus Assessment Deep Tendon Reflex Bilateral Achilles Deep Tendon Reflex 0 Absent Bilateral Patellar Deep Tendon Reflex 2+ Normal PT-OP-J Posture/Palpation/Skin Start: 06/10/20 14:36 Freq: Status: Active Protocol: Document 06/10/20 14:30 AW (Rec: 06/10/20 17:51 AW [email or web address]) Posture Evaluation Comments Posture Comments Swayback with flat lumbar spine. Notable hinge at TL junction 2/2 hardware. PT-OP-K Range of Motion Start: 06/10/20 14:36 Freq: Status: Active Protocol: Document 06/10/20 14:30 AW (Rec: 06/10/20 18:00 AW [email or web address]) Lumbar Spine Range of Motion Lumbar Spine Active Degrees Testing Position Standing Flexion 35 Extension 8 ROM Limitations Soft Tissue Tightness,Pain Comments Side bending with fingertips 14 from the floor bilaterally . Rotation ~25% bilaterally. Hip Goniometric Range of Motion Hip ROM Limitations Comments B hip ROM WNL except IR <15 degrees. PT-OP-L Special Tests Start: 06/10/20 14:36 Freq: Status: Active Protocol: Document 06/10/20 14:30 AW (Rec: 06/10/20 18:00 AW [email or web address]) Special Tests Hip Special Tests Scour Test Test Results right hip positive for pain reproduction PT-OP-M Strength Start: 06/10/20 14:36 Freq: Status: Active Protocol: Document 06/10/20 14:30 AW (Rec: 06/10/20 18:00 AW [email or web address]) Hip Strength Hip Manual Muscle Testing Right Flexion (L2) 4 Good Extension (S1) 3+ Fair+ Abduction 4- Good- External Rotation 4+ Good+ Internal Rotation 4+ Good+ Left Flexion (L2) 4 Good Extension (S1) 3+ Fair+ Abduction 4- Good- External Rotation 4+ Good+ Internal Rotation 4+ Good+ Knee Strength Knee Manual Muscle Testing Right Flexion (S2) 4 Good Extension (L3) 5 Normal Left Flexion (S2) 4 Good Extension (L3) 5 Normal Ankle/Foot Strength Ankle and Foot Manual Muscle Testing Right Dorsiflexion (L4) 4+ Good+ Plantarflexion (S1) 4- Good- Left Dorsiflexion (L4) 4+ Good+ Plantarflexion (S1) 4- Good- Toe Strength Toe Manual Muscle Testing Right Great Toe Extension 4- Good- Comments Left great toe extension 4+/5 PT-OP-Q Treatments Start: 06/10/20 14:36 Freq: Status: Active Protocol: Document 08/28/20 11:19 HH (Rec: 08/28/20 12:12 HH [id number]) Cardio Equipment Bicycle (Upright) Duration (Minutes) 6 Resistance 6 Other pt was SOB and had to take up to 4 10 second breaks Therapeutic Exercises Supine Exercises SLR Side bilateral Reps/Minutes 8 x2 Comments cues on FRANCINE LTR Side bilateral Equipment Used red therapy ball Reps/Minutes 10 Standing Exercises lunges Standing Exercise Name half lunges, with support on grab bar Reps/Minutes 10 x2 squat Resistance with cable for scap retraction Equipment Used 10 lbs on cable Reps/Minutes 10 x2 Comments cues on FRANCINE hip hinge Equipment Used 7 lbs DB Reps/Minutes 8x2 Manual Therapy Treatment Soft Tissue Mobilization QL Mobilization Type Sustained Pressure,Trigger Point Release Intensity/Depth Moderate Body Position Sidelying Comments reduced tonicity noted today. gluteal Mobilization Type Sustained Pressure,Trigger Point Release Intensity/Depth Moderate Body Position Sidelying Comments soreness at L gluteal muscles and piriformis PT-OP-R Modalities Start: 06/10/20 14:36 Freq: Status: Active Protocol: Document 08/12/20 12:00 AW (Rec: 08/12/20 12:14 AW [id number]) Hot Pack/Cold Pack Treatment Hot Pack Location lumbar Patient Position Hooklying Treatment Duration (minutes) 15 Patient Tolerance Good Comments end of session PT-OP-T Assessment and Plan Start: 06/10/20 14:36 Freq: Status: Active Protocol: Document 08/28/20 11:19 HH (Rec: 08/28/20 12:12 HH [id number]) Physical Therapy Assessment Goals Five Impairment ROM Short Term Goal (STG) 07/10 pt has been using sock aid for socks and shoe horn for shoes with laces. Fpc Goal (LTG) 07/31 goal met Pt is able to don shoes and socks without shoe horn and without increase in baseline pain level. LTG Duration 3 months - 09/10/20 Four Impairment unable to particpate in recreational activities Short Term Goal (STG) 07/31 pt has not been able to play golf yet Fpc Goal (LTG) Pt will complete 9 holes of golf without increase in baseline pain level LTG Duration 3 months - 09/10/20 Three Impairment medium risk of chronicity Fpc Goal (LTG) Pt will score 3 or less total on STarT Back tool to demonstrate decreased likelihood of chronicity and catastrophization. LTG Duration 3 months - 09/10/20 Two Impairment balance Short Term Goal (STG) Pt will improve SLS from table at height of 24 bilaterally to demonstrate improved BLE strength and stabilty STG Duration 6 weeks - 07/22/20 Fpc Goal (LTG) Pt will improve SLS from table at height of 22 bilaterally to demonstrate improved BLE strength and stabilty LTG Duration 3 months - 09/10/20 One Impairment Pt lacks appropriate exercise program Short Term Goal (STG) Pt will be independent with [facility] for support of therapy services provided in clinic STG Duration 6 weeks - 07/22/20 Assessment Summary Assessment pt shows improved tonicity and pain at L QL today. Added biking today and noticed pt gets SOB easily. However, pt did not get tingling/numnbess to his feet during this session. Will implement cardio endurance training to future sessions as well. Physical Therapy Plan Frequency and Duration Frequency of Treatment 2x/Week Duration of Treatment 3 months Plan of Care Start Date 06/10/20 Plan of Care End Date 09/10/20 Therapeutic Interventions Therapeutic Interventions Balance Training,Gait Training ,Home Exercise Program,Joint Mobilizations,Manual Therapy, Neuromuscular Re-education, Patient/Caregiver Education, Self-Care/Home Management,Soft Tissue Mobilization,Taping, Therapeutic Activities, Therapeutic Exercises Modalities Cold Pack/Ice Massage,Electric Stimulation,Hot Packs Next Visit Focus/Plan Next Note Type Treatment Note Next Visit Plan hip mobility trunk stabilization LE strengthening hip flexors stretch
--- NOTE | 2020-09-02 12:00 | PT.OTN ---
Current Diagnoses Spondylolisthesis, lumbar region (09/02/20) Spinal stenosis, lumbar region without neurogenic claudication (09/02/20) Postlaminectomy syndrome, not elsewhere classified (09/02/20) Difficulty in walking, not elsewhere classified (09/02/20) Abnormal posture (09/02/20) Physical Therapy Treatment Note PT-OP-A Visit Information Start: 06/10/20 14:36 Freq: Status: Active Protocol: Document 09/02/20 12:00 AW (Rec: 09/02/20 12:01 AW [id number]) Out-Patient Physical Therapy Visit Information Visit Information Visit Type Treatment Note Visit Note KX modifier needed. Visit Start Time 11:18 Visit Stop Time 11:59 Total Visit Minutes 41 Visit Number 23 Number of DYNAMOMETER TUNER Visits 0 PT-OP-B Current Condition Start: 06/10/20 14:36 Freq: Status: Active Protocol: Document 06/10/20 14:30 AW (Rec: 06/10/20 15:22 AW [id number]) Current Condition History of Current Condition Onset Date years Current Complaints LBP, BLE pain (left worse than right) History of Current Condition Pt has had three lumbar surgeries. The first was 20 years ago - a laminotomy which provided relief for ~10 years . Second surgery 10 years ago was laminectomy which provided relief for a while. He started to have pain again about a year ago and had TLIF two months ago. He's been trying to take it easy since surgery. He complains he is unable to walk or stand >10 min due to pain which he describes as stiffness. He is unable to bend far enough to comfortably reach his feet, interfering with dressing and other self-care tasks. He also has pain in his hips after sitting more than 10 minutes. When he gets up from resting position, he tends to walk in bent-forward position at first. Pt also reports numbness or dull light touch sensation in bilateral feet which he says is getting better little by little since surgery. Prior Treatments and Tests - April 2020: L3-S1 TLIF, L2 -3 hemilami - Prior PT for back pain Future Testing and Treatments Planned None identified Treatment Goals Patient/Caregiver Goals Pt would like to get back to golf in a few months. Have ROM to be able to don shoes/socks more easily, be able to lift 40 pounds, and generally increase BLE strength. Prior Functional Status Baseline Function- ADL's Independent Baseline Function- Mobility Independent Baseline Function- Gait no AD except in the one week following surgery Baseline Function- Work/School Pt is retired. 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 Needs to use a shoe horn Functional Limitations- Mobility/Gait Antalgic. Pt ambulates with significant R trunk rotation and R lateral lean. Also demonstrates steppage gait R>L for clearance of right foot. Functional Limitations- Recreation/ Unable to participate in golf. Hobbies Functional Limitations- Other Unable to lift more than light grocery bags without pain. PT-OP-C Subjective Start: 06/10/20 14:36 Freq: Status: Active Protocol: Document 09/02/20 12:00 AW (Rec: 09/02/20 12:01 AW [id number]) OP-PT Subjective Patient Comments Patient Comments I started taking meloxicam again - 1/day per prescription . It's helped my my wrist and hips. Hoping it will help my low back as well. I notice I'm generally walking faster and moving with less hesitation. PT-OP-D Balance Start: 06/10/20 14:36 Freq: Status: Active Protocol: Document 06/10/20 14:30 AW (Rec: 06/10/20 17:51 AW [email or web address]) OP-PT Balance Assessment Sitting Balance Static Sitting Balance Ability Good Dynamic Sitting Balance Ability Good Standing Balance Static Standing Balance Ability Fair Dynamic Standing Balance Ability Fair Device Used no AD Standing Balance Comments SLS R and L equal on multiple trials: 8 sec, 6 sec, 8 sec Balance Tests Single Limb Standing Single Limb- Right 8,6,8 Single Limb- Left 8,8,6 Mccann Fall Scale Copyright Permission PT-OP-E Functional Tests Start: 06/10/20 14:36 Freq: Status: Active Protocol: Document 06/10/20 14:30 AW (Rec: 06/10/20 18:01 AW [email or web address]) Functional Tests Single Leg Squat Test Score from 26.5 mat table bilaterally PT-OP-F Manual Assessment Start: 06/10/20 14:36 Freq: Status: Active Protocol: Document 06/10/20 14:30 AW (Rec: 06/10/20 17:51 AW [email or web address]) Manual Assessments Soft Tissue Assessment Soft Tissue Mobility Assessment Significant tone bilateral lumbar paraspinals PT-OP-G Mobility & Gait Start: 06/10/20 14:36 Freq: Status: Active Protocol: Document 06/10/20 14:30 AW (Rec: 06/10/20 17:51 AW [email or web address]) OP Mobility Evaluation Transfers Sit to Stand (+) nikki's sign on multiple observed attempts OP Gait Assessment Gait Gait Assistance Required: Independent Distance (Feet) 200 Assistive Devices Assistive Device None Gait Deviations General Gait Pattern Antalgic,Decreased Stride Length,Decreased Feet Clearance,Lateral Trunk Lean Factors Limiting Gait Function Factors Limiting Gait Function Decreased Activity Tolerance, Decreased Sensation,Decreased Strength,Limited Range of Motion,Pain,Poor Balance Comments Gait Comments Antalgic gait notable for increased trunk rotation to the right and right lateral lean. High steppage gait R>L to compensate for reduced foot clearance. PT-OP-H Neuro Start: 06/10/20 14:36 Freq: Status: Active Protocol: Document 06/10/20 14:30 AW (Rec: 06/10/20 17:51 AW [email or web address]) Sensation Evaluation Gross Sensation Gross Sensation Left LE Impaired,Right LE Impaired Sensation Description Numbness,Tingling Dermatome Impairments L5 Deep Tendon Reflex & Clonus Assessment Deep Tendon Reflex Bilateral Achilles Deep Tendon Reflex 0 Absent Bilateral Patellar Deep Tendon Reflex 2+ Normal PT-OP-J Posture/Palpation/Skin Start: 06/10/20 14:36 Freq: Status: Active Protocol: Document 06/10/20 14:30 AW (Rec: 06/10/20 17:51 AW [email or web address]) Posture Evaluation Comments Posture Comments Swayback with flat lumbar spine. Notable hinge at TL junction 2/2 hardware. PT-OP-K Range of Motion Start: 06/10/20 14:36 Freq: Status: Active Protocol: Document 06/10/20 14:30 AW (Rec: 06/10/20 18:00 AW [email or web address]) Lumbar Spine Range of Motion Lumbar Spine Active Degrees Testing Position Standing Flexion 35 Extension 8 ROM Limitations Soft Tissue Tightness,Pain Comments Side bending with fingertips 14 from the floor bilaterally . Rotation ~25% bilaterally. Hip Goniometric Range of Motion Hip ROM Limitations Comments B hip ROM WNL except IR <15 degrees. PT-OP-L Special Tests Start: 06/10/20 14:36 Freq: Status: Active Protocol: Document 06/10/20 14:30 AW (Rec: 06/10/20 18:00 AW [email or web address]) Special Tests Hip Special Tests Scour Test Test Results right hip positive for pain reproduction PT-OP-M Strength Start: 06/10/20 14:36 Freq: Status: Active Protocol: Document 06/10/20 14:30 AW (Rec: 06/10/20 18:00 AW [email or web address]) Hip Strength Hip Manual Muscle Testing Right Flexion (L2) 4 Good Extension (S1) 3+ Fair+ Abduction 4- Good- External Rotation 4+ Good+ Internal Rotation 4+ Good+ Left Flexion (L2) 4 Good Extension (S1) 3+ Fair+ Abduction 4- Good- External Rotation 4+ Good+ Internal Rotation 4+ Good+ Knee Strength Knee Manual Muscle Testing Right Flexion (S2) 4 Good Extension (L3) 5 Normal Left Flexion (S2) 4 Good Extension (L3) 5 Normal Ankle/Foot Strength Ankle and Foot Manual Muscle Testing Right Dorsiflexion (L4) 4+ Good+ Plantarflexion (S1) 4- Good- Left Dorsiflexion (L4) 4+ Good+ Plantarflexion (S1) 4- Good- Toe Strength Toe Manual Muscle Testing Right Great Toe Extension 4- Good- Comments Left great toe extension 4+/5 PT-OP-Q Treatments Start: 06/10/20 14:36 Freq: Status: Active Protocol: Document 09/02/20 12:00 AW (Rec: 09/02/20 12:01 AW [id number]) Cardio Equipment Recumbent Stepper (Sci-Fit) Duration (Minutes) 8 Resistance 3.0 Seat Position 11 Gym Equipment Shuttle Recovery SL squat Resistance #75 Shuttle Recovery Platform Stable Reps/Time 12 x 3 Therapeutic Exercises Supine Exercises SLR Side bilateral Resistance 1# ankle weight Reps/Minutes 8 x2 Comments cues on FRANCINE deadbug Supine Exercise Name isometric - squeeze arms and legs together Equipment Used with red therapy ball Reps/Minutes 10 sec hold x5 Comments cues for flat back Standing Exercises T with chair support Standing Exercise Name T with chair support Side bilateral Comments cued glute engagement stance leg; dc'ed as pt did not tolerate good morning Standing Exercise Name good morning Reps/Minutes x8 Comments start with forearm plank on fixed ht plinth squat Resistance with cable for scap retraction Equipment Used 10 lbs on cable Reps/Minutes 10 x2 Comments cues on FRANCINE, hip extension hip hinge Equipment Used 7 lbs DB Reps/Minutes 8x2 PT-OP-R Modalities Start: 06/10/20 14:36 Freq: Status: Active Protocol: Document 08/12/20 12:00 AW (Rec: 08/12/20 12:14 AW [id number]) Hot Pack/Cold Pack Treatment Hot Pack Location lumbar Patient Position Hooklying Treatment Duration (minutes) 15 Patient Tolerance Good Comments end of session PT-OP-T Assessment and Plan Start: 06/10/20 14:36 Freq: Status: Active Protocol: Document 09/02/20 12:00 AW (Rec: 09/02/20 12:07 AW [email or web address]) Physical Therapy Assessment Goals Five Impairment ROM Short Term Goal (STG) 07/10 pt has been using sock aid for socks and shoe horn for shoes with laces. Half-Way Goal (LTG) 07/31 goal met Pt is able to don shoes and socks without shoe horn and without increase in baseline pain level. LTG Duration 3 months - 09/10/20 Four Impairment unable to particpate in recreational activities Short Term Goal (STG) 07/31 pt has not been able to play golf yet Half-Way Goal (LTG) Pt will complete 9 holes of golf without increase in baseline pain level LTG Duration 3 months - 09/10/20 Three Impairment medium risk of chronicity Appliance Service Supervisor Goal (LTG) Pt will score 3 or less total on STarT Back tool to demonstrate decreased likelihood of chronicity and catastrophization. LTG Duration 3 months - 09/10/20 Two Impairment balance Short Term Goal (STG) Pt will improve SLS from table at height of 24 bilaterally to demonstrate improved BLE strength and stabilty STG Duration 6 weeks - 07/22/20 Half-Way Goal (LTG) Pt will improve SLS from table at height of 22 bilaterally to demonstrate improved BLE strength and stabilty LTG Duration 3 months - 09/10/20 One Impairment Pt lacks appropriate exercise program Short Term Goal (STG) Pt will be independent with [facility] for support of therapy services provided in clinic STG Duration 6 weeks - 07/22/20 Assessment Summary Assessment Pt reports decreased hesitation with movement overall. Treatment today focused on hip strength. Pt does require tactile cues for glute facilitation but is improving in hip hinge form. Physical Therapy Plan Frequency and Duration Frequency of Treatment 2x/Week Duration of Treatment 3 months Plan of Care Start Date 06/10/20 Plan of Care End Date 09/10/20 Therapeutic Interventions Therapeutic Interventions Balance Training,Gait Training ,Home Exercise Program,Joint Mobilizations,Manual Therapy, Neuromuscular Re-education, Patient/Caregiver Education, Self-Care/Home Management,Soft Tissue Mobilization,Taping, Therapeutic Activities, Therapeutic Exercises Modalities Cold Pack/Ice Massage,Electric Stimulation,Hot Packs Next Visit Focus/Plan Next Note Type Treatment Note
--- NOTE | 2020-09-04 12:14 | PT.OTN ---
Current Diagnoses Spondylolisthesis, lumbar region (09/04/20) Spinal stenosis, lumbar region without neurogenic claudication (09/04/20) Postlaminectomy syndrome, not elsewhere classified (09/04/20) Difficulty in walking, not elsewhere classified (09/04/20) Abnormal posture (09/04/20) Physical Therapy Treatment Note PT-OP-A Visit Information Start: 06/10/20 14:36 Freq: Status: Active Protocol: Document 09/04/20 11:15 HH (Rec: 09/04/20 12:14 HH [id number]) Out-Patient Physical Therapy Visit Information Visit Information Visit Type Treatment Note Visit Note KX modifier needed. Visit Start Time 11:18 Visit Stop Time 12:01 Total Visit Minutes 43 Visit Number 24 Number of RV DETAILER Visits 0 PT-OP-B Current Condition Start: 06/10/20 14:36 Freq: Status: Active Protocol: Document 06/10/20 14:30 AW (Rec: 06/10/20 15:22 AW [id number]) Current Condition History of Current Condition Onset Date years Current Complaints LBP, BLE pain (left worse than right) History of Current Condition Pt has had three lumbar surgeries. The first was 20 years ago - a laminotomy which provided relief for ~10 years . Second surgery 10 years ago was laminectomy which provided relief for a while. He started to have pain again about a year ago and had TLIF two months ago. He's been trying to take it easy since surgery. He complains he is unable to walk or stand >10 min due to pain which he describes as stiffness. He is unable to bend far enough to comfortably reach his feet, interfering with dressing and other self-care tasks. He also has pain in his hips after sitting more than 10 minutes. When he gets up from resting position, he tends to walk in bent-forward position at first. Pt also reports numbness or dull light touch sensation in bilateral feet which he says is getting better little by little since surgery. Prior Treatments and Tests - April 2020: L3-S1 TLIF, L2 -3 hemilami - Prior PT for back pain Future Testing and Treatments Planned None identified Treatment Goals Patient/Caregiver Goals Pt would like to get back to golf in a few months. Have ROM to be able to don shoes/socks more easily, be able to lift 40 pounds, and generally increase BLE strength. Prior Functional Status Baseline Function- ADL's Independent Baseline Function- Mobility Independent Baseline Function- Gait no AD except in the one week following surgery Baseline Function- Work/School Pt is retired. 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 Needs to use a shoe horn Functional Limitations- Mobility/Gait Antalgic. Pt ambulates with significant R trunk rotation and R lateral lean. Also demonstrates steppage gait R>L for clearance of right foot. Functional Limitations- Recreation/ Unable to participate in golf. Hobbies Functional Limitations- Other Unable to lift more than light grocery bags without pain. PT-OP-C Subjective Start: 06/10/20 14:36 Freq: Status: Active Protocol: Document 09/04/20 11:15 HH (Rec: 09/04/20 12:14 HH [id number]) OP-PT Subjective Patient Comments Patient Comments the medication is definitely helping for my pain. Im doing pretty good so far PT-OP-D Balance Start: 06/10/20 14:36 Freq: Status: Active Protocol: Document 06/10/20 14:30 AW (Rec: 06/10/20 17:51 AW [email or web address]) OP-PT Balance Assessment Sitting Balance Static Sitting Balance Ability Good Dynamic Sitting Balance Ability Good Standing Balance Static Standing Balance Ability Fair Dynamic Standing Balance Ability Fair Device Used no AD Standing Balance Comments SLS R and L equal on multiple trials: 8 sec, 6 sec, 8 sec Balance Tests Single Limb Standing Single Limb- Right 8,6,8 Single Limb- Left 8,8,6 Mccann Fall Scale Copyright Permission PT-OP-E Functional Tests Start: 06/10/20 14:36 Freq: Status: Active Protocol: Document 06/10/20 14:30 AW (Rec: 06/10/20 18:01 AW [email or web address]) Functional Tests Single Leg Squat Test Score from 26.5 mat table bilaterally PT-OP-F Manual Assessment Start: 06/10/20 14:36 Freq: Status: Active Protocol: Document 06/10/20 14:30 AW (Rec: 06/10/20 17:51 AW [email or web address]) Manual Assessments Soft Tissue Assessment Soft Tissue Mobility Assessment Significant tone bilateral lumbar paraspinals PT-OP-G Mobility & Gait Start: 06/10/20 14:36 Freq: Status: Active Protocol: Document 06/10/20 14:30 AW (Rec: 06/10/20 17:51 AW [email or web address]) OP Mobility Evaluation Transfers Sit to Stand (+) nikki's sign on multiple observed attempts OP Gait Assessment Gait Gait Assistance Required: Independent Distance (Feet) 200 Assistive Devices Assistive Device None Gait Deviations General Gait Pattern Antalgic,Decreased Stride Length,Decreased Feet Clearance,Lateral Trunk Lean Factors Limiting Gait Function Factors Limiting Gait Function Decreased Activity Tolerance, Decreased Sensation,Decreased Strength,Limited Range of Motion,Pain,Poor Balance Comments Gait Comments Antalgic gait notable for increased trunk rotation to the right and right lateral lean. High steppage gait R>L to compensate for reduced foot clearance. PT-OP-H Neuro Start: 06/10/20 14:36 Freq: Status: Active Protocol: Document 06/10/20 14:30 AW (Rec: 06/10/20 17:51 AW [email or web address]) Sensation Evaluation Gross Sensation Gross Sensation Left LE Impaired,Right LE Impaired Sensation Description Numbness,Tingling Dermatome Impairments L5 Deep Tendon Reflex & Clonus Assessment Deep Tendon Reflex Bilateral Achilles Deep Tendon Reflex 0 Absent Bilateral Patellar Deep Tendon Reflex 2+ Normal PT-OP-J Posture/Palpation/Skin Start: 06/10/20 14:36 Freq: Status: Active Protocol: Document 06/10/20 14:30 AW (Rec: 06/10/20 17:51 AW [email or web address]) Posture Evaluation Comments Posture Comments Swayback with flat lumbar spine. Notable hinge at TL junction 2/2 hardware. PT-OP-K Range of Motion Start: 06/10/20 14:36 Freq: Status: Active Protocol: Document 06/10/20 14:30 AW (Rec: 06/10/20 18:00 AW [email or web address]) Lumbar Spine Range of Motion Lumbar Spine Active Degrees Testing Position Standing Flexion 35 Extension 8 ROM Limitations Soft Tissue Tightness,Pain Comments Side bending with fingertips 14 from the floor bilaterally . Rotation ~25% bilaterally. Hip Goniometric Range of Motion Hip ROM Limitations Comments B hip ROM WNL except IR <15 degrees. PT-OP-L Special Tests Start: 06/10/20 14:36 Freq: Status: Active Protocol: Document 06/10/20 14:30 AW (Rec: 06/10/20 18:00 AW [email or web address]) Special Tests Hip Special Tests Scour Test Test Results right hip positive for pain reproduction PT-OP-M Strength Start: 06/10/20 14:36 Freq: Status: Active Protocol: Document 06/10/20 14:30 AW (Rec: 06/10/20 18:00 AW [email or web address]) Hip Strength Hip Manual Muscle Testing Right Flexion (L2) 4 Good Extension (S1) 3+ Fair+ Abduction 4- Good- External Rotation 4+ Good+ Internal Rotation 4+ Good+ Left Flexion (L2) 4 Good Extension (S1) 3+ Fair+ Abduction 4- Good- External Rotation 4+ Good+ Internal Rotation 4+ Good+ Knee Strength Knee Manual Muscle Testing Right Flexion (S2) 4 Good Extension (L3) 5 Normal Left Flexion (S2) 4 Good Extension (L3) 5 Normal Ankle/Foot Strength Ankle and Foot Manual Muscle Testing Right Dorsiflexion (L4) 4+ Good+ Plantarflexion (S1) 4- Good- Left Dorsiflexion (L4) 4+ Good+ Plantarflexion (S1) 4- Good- Toe Strength Toe Manual Muscle Testing Right Great Toe Extension 4- Good- Comments Left great toe extension 4+/5 PT-OP-Q Treatments Start: 06/10/20 14:36 Freq: Status: Active Protocol: Document 09/04/20 11:15 HH (Rec: 09/04/20 12:14 HH [id number]) Cardio Equipment Bicycle (Upright) Duration (Minutes) 6 Resistance 6 Other SOB without breaks. Therapeutic Exercises Supine Exercises SLR Side bilateral Resistance 1# ankle weight Reps/Minutes 8 x2 Comments cues on FRANCINE Standing Exercises balance 2 Standing Exercise Name stagger stance, 2 blue foam Reps/Minutes 5 mins balance Standing Exercise Name SLS Side bilateral Reps/Minutes 5 mins Comments floor then blue foam lunges Standing Exercise Name half lunges, with support on grab bar Reps/Minutes 10 x2 step up Standing Exercise Name step up Side bilateral Resistance 8 step Equipment Used no rails, SBA Reps/Minutes 10x2 Manual Therapy Treatment Soft Tissue Mobilization QL Mobilization Type Sustained Pressure,Trigger Point Release Intensity/Depth Moderate Body Position Sidelying Comments reduced tonicity noted today. Added pelvic girdle elevation and depression today with tactile cues. PT-OP-R Modalities Start: 06/10/20 14:36 Freq: Status: Active Protocol: Document 08/12/20 12:00 AW (Rec: 08/12/20 12:14 AW [id number]) Hot Pack/Cold Pack Treatment Hot Pack Location lumbar Patient Position Hooklying Treatment Duration (minutes) 15 Patient Tolerance Good Comments end of session PT-OP-T Assessment and Plan Start: 06/10/20 14:36 Freq: Status: Active Protocol: Document 09/04/20 11:15 HH (Rec: 09/04/20 12:14 HH [email or web address]) Physical Therapy Assessment Goals Five Impairment ROM Short Term Goal (STG) 07/10 pt has been using sock aid for socks and shoe horn for shoes with laces. Card Folder Goal (LTG) 07/31 goal met Pt is able to don shoes and socks without shoe horn and without increase in baseline pain level. LTG Duration 3 months - 09/10/20 Four Impairment unable to particpate in recreational activities Short Term Goal (STG) 07/31 pt has not been able to play golf yet [facility] Goal (LTG) Pt will complete 9 holes of golf without increase in baseline pain level LTG Duration 3 months - 09/10/20 Three Impairment medium risk of chronicity [facility] Goal (LTG) Pt will score 3 or less total on STarT Back tool to demonstrate decreased likelihood of chronicity and catastrophization. LTG Duration 3 months - 09/10/20 Two Impairment balance Short Term Goal (STG) Pt will improve SLS from table at height of 24 bilaterally to demonstrate improved BLE strength and stabilty STG Duration 6 weeks - 07/22/20 Card Folder Goal (LTG) Pt will improve SLS from table at height of 22 bilaterally to demonstrate improved BLE strength and stabilty LTG Duration 3 months - 09/10/20 One Impairment Pt lacks appropriate exercise program Short Term Goal (STG) Pt will be independent with [facility] for support of therapy services provided in clinic STG Duration 6 weeks - 07/22/20 Assessment Summary Assessment Pt stated he is getting better overall with the combination of taking meloxicam. Focused on single leg strengthening and balance therex today and he jeri very well without c/o Physical Therapy Plan Frequency and Duration Frequency of Treatment 2x/Week Duration of Treatment 3 months Plan of Care Start Date 06/10/20 Plan of Care End Date 09/10/20 Therapeutic Interventions Therapeutic Interventions Balance Training,Gait Training ,Home Exercise Program,Joint Mobilizations,Manual Therapy, Neuromuscular Re-education, Patient/Caregiver Education, Self-Care/Home Management,Soft Tissue Mobilization,Taping, Therapeutic Activities, Therapeutic Exercises Modalities Cold Pack/Ice Massage,Electric Stimulation,Hot Packs Next Visit Focus/Plan Next Note Type Treatment Note Next Visit Plan hip mobility trunk stabilization LE strengthening hip flexors stretch
--- NOTE | 2020-09-09 12:18 | PT.OTN ---
Current Diagnoses Spondylolisthesis, lumbar region (09/09/20) Spinal stenosis, lumbar region without neurogenic claudication (09/09/20) Postlaminectomy syndrome, not elsewhere classified (09/09/20) Difficulty in walking, not elsewhere classified (09/09/20) Abnormal posture (09/09/20) Physical Therapy Treatment Note PT-OP-A Visit Information Start: 06/10/20 14:36 Freq: Status: Active Protocol: Document 09/09/20 12:00 AW (Rec: 09/09/20 12:17 AW [id number]) Out-Patient Physical Therapy Visit Information Visit Information Visit Type Progress Note Visit Note KX modifier needed. Visit Start Time 11:14 Visit Stop Time 12:00 Total Visit Minutes 46 Visit Number 25 Number of GROCERY STOCKER Visits 0 Evaluation Information Evaluation Date 06/10/20 PT-OP-B Current Condition Start: 06/10/20 14:36 Freq: Status: Active Protocol: Document 06/10/20 14:30 AW (Rec: 06/10/20 15:22 AW [id number]) Current Condition History of Current Condition Onset Date years Current Complaints LBP, BLE pain (left worse than right) History of Current Condition Pt has had three lumbar surgeries. The first was 20 years ago - a laminotomy which provided relief for ~10 years . Second surgery 10 years ago was laminectomy which provided relief for a while. He started to have pain again about a year ago and had TLIF two months ago. He's been trying to take it easy since surgery. He complains he is unable to walk or stand >10 min due to pain which he describes as stiffness. He is unable to bend far enough to comfortably reach his feet, interfering with dressing and other self-care tasks. He also has pain in his hips after sitting more than 10 minutes. When he gets up from resting position, he tends to walk in bent-forward position at first. Pt also reports numbness or dull light touch sensation in bilateral feet which he says is getting better little by little since surgery. Prior Treatments and Tests - April 2020: L3-S1 TLIF, L2 -3 hemilami - Prior PT for back pain Future Testing and Treatments Planned None identified Treatment Goals Patient/Caregiver Goals Pt would like to get back to golf in a few months. Have ROM to be able to don shoes/socks more easily, be able to lift 40 pounds, and generally increase BLE strength. Prior Functional Status Baseline Function- ADL's Independent Baseline Function- Mobility Independent Baseline Function- Gait no AD except in the one week following surgery Baseline Function- Work/School Pt is retired. 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 Needs to use a shoe horn Functional Limitations- Mobility/Gait Antalgic. Pt ambulates with significant R trunk rotation and R lateral lean. Also demonstrates steppage gait R>L for clearance of right foot. Functional Limitations- Recreation/ Unable to participate in golf. Hobbies Functional Limitations- Other Unable to lift more than light grocery bags without pain. PT-OP-C Subjective Start: 06/10/20 14:36 Freq: Status: Active Protocol: Document 09/09/20 12:00 AW (Rec: 09/09/20 12:17 AW [id number]) OP-PT Subjective Patient Comments Patient Comments PT has been so helpful. I feel like I have more gains to make in therapy. Definitely interested in continuing. PT-OP-D Balance Start: 06/10/20 14:36 Freq: Status: Active Protocol: Document 06/10/20 14:30 AW (Rec: 06/10/20 17:51 AW [email or web address]) OP-PT Balance Assessment Sitting Balance Static Sitting Balance Ability Good Dynamic Sitting Balance Ability Good Standing Balance Static Standing Balance Ability Fair Dynamic Standing Balance Ability Fair Device Used no AD Standing Balance Comments SLS R and L equal on multiple trials: 8 sec, 6 sec, 8 sec Balance Tests Single Limb Standing Single Limb- Right 8,6,8 Single Limb- Left 8,8,6 Mccann Fall Scale Copyright Permission PT-OP-E Functional Tests Start: 06/10/20 14:36 Freq: Status: Active Protocol: Document 06/10/20 14:30 AW (Rec: 06/10/20 18:01 AW [email or web address]) Functional Tests Single Leg Squat Test Score from 26.5 mat table bilaterally PT-OP-F Manual Assessment Start: 06/10/20 14:36 Freq: Status: Active Protocol: Document 06/10/20 14:30 AW (Rec: 06/10/20 17:51 AW [email or web address]) Manual Assessments Soft Tissue Assessment Soft Tissue Mobility Assessment Significant tone bilateral lumbar paraspinals PT-OP-G Mobility & Gait Start: 06/10/20 14:36 Freq: Status: Active Protocol: Document 06/10/20 14:30 AW (Rec: 06/10/20 17:51 AW [email or web address]) OP Mobility Evaluation Transfers Sit to Stand (+) nikki's sign on multiple observed attempts OP Gait Assessment Gait Gait Assistance Required: Independent Distance (Feet) 200 Assistive Devices Assistive Device None Gait Deviations General Gait Pattern Antalgic,Decreased Stride Length,Decreased Feet Clearance,Lateral Trunk Lean Factors Limiting Gait Function Factors Limiting Gait Function Decreased Activity Tolerance, Decreased Sensation,Decreased Strength,Limited Range of Motion,Pain,Poor Balance Comments Gait Comments Antalgic gait notable for increased trunk rotation to the right and right lateral lean. High steppage gait R>L to compensate for reduced foot clearance. PT-OP-H Neuro Start: 06/10/20 14:36 Freq: Status: Active Protocol: Document 06/10/20 14:30 AW (Rec: 06/10/20 17:51 AW [email or web address]) Sensation Evaluation Gross Sensation Gross Sensation Left LE Impaired,Right LE Impaired Sensation Description Numbness,Tingling Dermatome Impairments L5 Deep Tendon Reflex & Clonus Assessment Deep Tendon Reflex Bilateral Achilles Deep Tendon Reflex 0 Absent Bilateral Patellar Deep Tendon Reflex 2+ Normal PT-OP-J Posture/Palpation/Skin Start: 06/10/20 14:36 Freq: Status: Active Protocol: Document 06/10/20 14:30 AW (Rec: 06/10/20 17:51 AW [email or web address]) Posture Evaluation Comments Posture Comments Swayback with flat lumbar spine. Notable hinge at TL junction 2/2 hardware. PT-OP-K Range of Motion Start: 06/10/20 14:36 Freq: Status: Active Protocol: Document 06/10/20 14:30 AW (Rec: 06/10/20 18:00 AW [email or web address]) Lumbar Spine Range of Motion Lumbar Spine Active Degrees Testing Position Standing Flexion 35 Extension 8 ROM Limitations Soft Tissue Tightness,Pain Comments Side bending with fingertips 14 from the floor bilaterally . Rotation ~25% bilaterally. Hip Goniometric Range of Motion Hip ROM Limitations Comments B hip ROM WNL except IR <15 degrees. PT-OP-L Special Tests Start: 06/10/20 14:36 Freq: Status: Active Protocol: Document 06/10/20 14:30 AW (Rec: 06/10/20 18:00 AW [email or web address]) Special Tests Hip Special Tests Scour Test Test Results right hip positive for pain reproduction PT-OP-M Strength Start: 06/10/20 14:36 Freq: Status: Active Protocol: Document 06/10/20 14:30 AW (Rec: 06/10/20 18:00 AW [email or web address]) Hip Strength Hip Manual Muscle Testing Right Flexion (L2) 4 Good Extension (S1) 3+ Fair+ Abduction 4- Good- External Rotation 4+ Good+ Internal Rotation 4+ Good+ Left Flexion (L2) 4 Good Extension (S1) 3+ Fair+ Abduction 4- Good- External Rotation 4+ Good+ Internal Rotation 4+ Good+ Knee Strength Knee Manual Muscle Testing Right Flexion (S2) 4 Good Extension (L3) 5 Normal Left Flexion (S2) 4 Good Extension (L3) 5 Normal Ankle/Foot Strength Ankle and Foot Manual Muscle Testing Right Dorsiflexion (L4) 4+ Good+ Plantarflexion (S1) 4- Good- Left Dorsiflexion (L4) 4+ Good+ Plantarflexion (S1) 4- Good- Toe Strength Toe Manual Muscle Testing Right Great Toe Extension 4- Good- Comments Left great toe extension 4+/5 PT-OP-Q Treatments Start: 06/10/20 14:36 Freq: Status: Active Protocol: Document 09/09/20 12:00 AW (Rec: 09/09/20 12:17 AW [id number]) Cardio Equipment Bicycle (Upright) Duration (Minutes) 8 Resistance 6 Seat Position 5; 1.7 miles Other slight SOB with break at 5 and 7 min Therapeutic Exercises Standing Exercises balance 2 Standing Exercise Name stagger stance, 2 blue foam Reps/Minutes 5 mins balance Standing Exercise Name SLS Side bilateral Reps/Minutes 5 mins Comments floor then blue foam step up Standing Exercise Name step up Side bilateral Resistance 8 step Equipment Used no rails, SBA Reps/Minutes 10x2 Manual Therapy Treatment Soft Tissue Mobilization QL Mobilization Type Sustained Pressure,Trigger Point Release Intensity/Depth Moderate Body Position Sidelying Comments improved tissue quality/ reduction in tone post-STM PT-OP-R Modalities Start: 06/10/20 14:36 Freq: Status: Active Protocol: Document 08/12/20 12:00 AW (Rec: 08/12/20 12:14 AW [id number]) Hot Pack/Cold Pack Treatment Hot Pack Location lumbar Patient Position Hooklying Treatment Duration (minutes) 15 Patient Tolerance Good Comments end of session PT-OP-T Assessment and Plan Start: 06/10/20 14:36 Freq: Status: Active Protocol: Document 09/09/20 12:00 AW (Rec: 09/09/20 12:17 AW [id number]) Physical Therapy Assessment Goals Five Impairment ROM Short Term Goal (STG) 07/10 pt has been using sock aid for socks and shoe horn for shoes with laces. Textile Pin Worker Goal (LTG) 07/31 goal met Pt is able to don shoes and socks without shoe horn and without increase in baseline pain level. LTG Duration 3 months - 09/10/20 Four Impairment unable to particpate in recreational activities Short Term Goal (STG) 07/31 pt has not been able to play golf yet Textile Pin Worker Goal (LTG) Pt will complete 9 holes of golf without increase in baseline pain level 09/09/20: Update goal to Pt will tolerate 30 minutes standing and walking in order to be able to participate in driving range activities LTG Duration 11/10/20 Three Impairment medium risk of chronicity [facility] Goal (LTG) Pt will score 3 or less total on STarT Back tool to demonstrate decreased likelihood of chronicity and catastrophization. 09/09/20: Pt scores 5 (improved by one point since eval). LTG Duration 11/10/20 Two Impairment balance Short Term Goal (STG) Pt will improve SLS from table at height of 24 bilaterally to demonstrate improved BLE strength and stabilty STG Duration 6 weeks - 07/22/20 Textile Pin Worker Goal (LTG) Pt will improve SLS from table at height of 22 bilaterally to demonstrate improved BLE strength and stabilty 09/09/20: GOAL PROGRESS Pt able to stand on RLE from 22 height. LLE is challenging but doable from 24, unable at 22 LTG Duration 11/10/20 One Impairment Pt lacks appropriate exercise program Short Term Goal (STG) Pt will be independent with [facility] for support of therapy services provided in clinic [facility] STG Duration 6 weeks - 07/22/20 Textile Pin Worker Goal (LTG) Pt will participate in self- selected aerobic exercise at least twice weekly. LTG Duration 11/10/20 Progress Towards Goals Progress Towards Goals Progressing Toward Goals Progress Comments Pt's pain symptoms have improved but pt continues to walk with antalgic gait, decreased LLE weightbearing. He now has impaired light touch sensation B LE. Lower extremity strength and single leg stance have improved but left LE has not improved as much as right. Pt would benefit from continued PT to progress strength, stability, and balance, and to improve quality of gait. Assessment Summary Assessment Pt shows good effort with all activities. Continued focus on single leg strength and balance with good feedback. Assessed goals and updated POC . Physical Therapy Plan Frequency and Duration Frequency of Treatment 2x/Week Duration of Treatment 2 months Plan of Care Start Date 09/10/20 Plan of Care End Date 11/10/20 Therapeutic Interventions Therapeutic Interventions Balance Training,Gait Training ,Home Exercise Program,Joint Mobilizations,Manual Therapy, Neuromuscular Re-education, Patient/Caregiver Education, Self-Care/Home Management,Soft Tissue Mobilization,Taping, Therapeutic Activities, Therapeutic Exercises Modalities Cold Pack/Ice Massage,Electric Stimulation,Hot Packs Next Visit Focus/Plan Next Note Type Treatment Note Next Visit Plan single leg strength, stability
--- NOTE | 2020-09-09 12:18 | PT.OPPOC ---
Physical, Occupational & Speech Therapy At [facility] Current Diagnoses Spondylolisthesis, lumbar region (09/09/20) Spinal stenosis, lumbar region without neurogenic claudication (09/09/20) Postlaminectomy syndrome, not elsewhere classified (09/09/20) Difficulty in walking, not elsewhere classified (09/09/20) Abnormal posture (09/09/20) Visit Care Team Role Provider Type Lito Powell MD Family Provider Physician Primary Care Provider Specialty: Internal Medicine Address: [address] [place] [address], [id number] Email: [email or web address] Juan M Garvey MD Attending Provider Physician Referring Provider Specialty: Orthopedic Surgery Address: [address] [place] [address], [id number] Email: [email or web address] Plan Of Care PT-OP-T Assessment and Plan Start: 06/10/20 14:36 Freq: Status: Active Protocol: Document 09/09/20 12:00 AW (Rec: 09/09/20 12:17 AW [id number]) Physical Therapy Assessment Goals Five Impairment ROM Short Term Goal (STG) 07/10 pt has been using sock aid for socks and shoe horn for shoes with laces. Founding Partner Goal (LTG) 07/31 goal met Pt is able to don shoes and socks without shoe horn and without increase in baseline pain level. LTG Duration 3 months - 09/10/20 Four Impairment unable to particpate in recreational activities Short Term Goal (STG) 07/31 pt has not been able to play golf yet Mcfp Goal (LTG) Pt will complete 9 holes of golf without increase in baseline pain level 09/09/20: Update goal to Pt will tolerate 30 minutes standing and walking in order to be able to participate in driving range activities LTG Duration 11/10/20 Three Impairment medium risk of chronicity Mcfp Goal (LTG) Pt will score 3 or less total on STarT Back tool to demonstrate decreased likelihood of chronicity and catastrophization. 09/09/20: Pt scores 5 (improved by one point since eval). LTG Duration 11/10/20 Two Impairment balance Short Term Goal (STG) Pt will improve SLS from table at height of 24 bilaterally to demonstrate improved BLE strength and stabilty STG Duration 6 weeks - 07/22/20 Mcfp Goal (LTG) Pt will improve SLS from table at height of 22 bilaterally to demonstrate improved BLE strength and stabilty 09/09/20: GOAL PROGRESS Pt able to stand on RLE from 22 height. LLE is challenging but doable from 24, unable at 22 LTG Duration 11/10/20 One Impairment Pt lacks appropriate exercise program Short Term Goal (STG) Pt will be independent with [facility] for support of therapy services provided in clinic MET STG Duration 6 weeks - 07/22/20 Founding Partner Goal (LTG) Pt will participate in self- selected aerobic exercise at least twice weekly. LTG Duration 11/10/20 Progress Towards Goals Progress Towards Goals Progressing Toward Goals Progress Comments Pt's pain symptoms have improved but pt continues to walk with antalgic gait, decreased LLE weightbearing. He now has impaired light touch sensation B LE. Lower extremity strength and single leg stance have improved but left LE has not improved as much as right. Pt would benefit from continued PT to progress strength, stability, and balance, and to improve quality of gait. Assessment Summary Assessment Pt shows good effort with all activities. Continued focus on single leg strength and balance with good feedback. Assessed goals and updated POC . Physical Therapy Plan Frequency and Duration Frequency of Treatment 2x/Week Duration of Treatment 2 months Plan of Care Start Date 09/10/20 Plan of Care End Date 11/10/20 Therapeutic Interventions Therapeutic Interventions Balance Training,Gait Training ,Home Exercise Program,Joint Mobilizations,Manual Therapy, Neuromuscular Re-education, Patient/Caregiver Education, Self-Care/Home Management,Soft Tissue Mobilization,Taping, Therapeutic Activities, Therapeutic Exercises Modalities Cold Pack/Ice Massage,Electric Stimulation,Hot Packs Next Visit Focus/Plan Next Note Type Treatment Note Next Visit Plan single leg strength, stability Plan of Care Dates Plan of Care Start Date 09/10/20 Plan of Care End Date 11/10/20 Electronically Signed by: Otilia Henson, PT 09/09/20 [id number] Please Sign and Return: I have reviewed this Plan of Care and certify that the skilled therapy services above are required to meet the patient?s needs. Physician Signature Date Printed Name and Credentials Clinical Instructor Signature Printed Name and Credentials
--- NOTE | 2020-09-11 12:06 | PT.OTN ---
Current Diagnoses Spondylolisthesis, lumbar region (09/11/20) Spinal stenosis, lumbar region without neurogenic claudication (09/11/20) Postlaminectomy syndrome, not elsewhere classified (09/11/20) Difficulty in walking, not elsewhere classified (09/11/20) Abnormal posture (09/11/20) Physical Therapy Treatment Note PT-OP-A Visit Information Start: 06/10/20 14:36 Freq: Status: Active Protocol: Document 09/11/20 11:15 HH (Rec: 09/11/20 12:06 HH [id number]) Out-Patient Physical Therapy Visit Information Visit Information Visit Type Treatment Note Visit Note KX modifier needed. Visit Start Time 11:15 Visit Stop Time 12:00 Total Visit Minutes 45 Visit Number 26 Number of PASTRY MIXER Visits 0 PT-OP-B Current Condition Start: 06/10/20 14:36 Freq: Status: Active Protocol: Document 06/10/20 14:30 AW (Rec: 06/10/20 15:22 AW [id number]) Current Condition History of Current Condition Onset Date years Current Complaints LBP, BLE pain (left worse than right) History of Current Condition Pt has had three lumbar surgeries. The first was 20 years ago - a laminotomy which provided relief for ~10 years . Second surgery 10 years ago was laminectomy which provided relief for a while. He started to have pain again about a year ago and had TLIF two months ago. He's been trying to take it easy since surgery. He complains he is unable to walk or stand >10 min due to pain which he describes as stiffness. He is unable to bend far enough to comfortably reach his feet, interfering with dressing and other self-care tasks. He also has pain in his hips after sitting more than 10 minutes. When he gets up from resting position, he tends to walk in bent-forward position at first. Pt also reports numbness or dull light touch sensation in bilateral feet which he says is getting better little by little since surgery. Prior Treatments and Tests - April 2020: L3-S1 TLIF, L2 -3 hemilami - Prior PT for back pain Future Testing and Treatments Planned None identified Treatment Goals Patient/Caregiver Goals Pt would like to get back to golf in a few months. Have ROM to be able to don shoes/socks more easily, be able to lift 40 pounds, and generally increase BLE strength. Prior Functional Status Baseline Function- ADL's Independent Baseline Function- Mobility Independent Baseline Function- Gait no AD except in the one week following surgery Baseline Function- Work/School Pt is retired. 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 Needs to use a shoe horn Functional Limitations- Mobility/Gait Antalgic. Pt ambulates with significant R trunk rotation and R lateral lean. Also demonstrates steppage gait R>L for clearance of right foot. Functional Limitations- Recreation/ Unable to participate in golf. Hobbies Functional Limitations- Other Unable to lift more than light grocery bags without pain. PT-OP-C Subjective Start: 06/10/20 14:36 Freq: Status: Active Protocol: Document 09/11/20 11:15 HH (Rec: 09/11/20 12:06 HH [id number]) OP-PT Subjective Patient Comments Patient Comments Im doing pretty good so far. I still have some twisting discomfort at my L lower back from changing position after sitting from awhile. PT-OP-D Balance Start: 06/10/20 14:36 Freq: Status: Active Protocol: Document 06/10/20 14:30 AW (Rec: 06/10/20 17:51 AW [email or web address]) OP-PT Balance Assessment Sitting Balance Static Sitting Balance Ability Good Dynamic Sitting Balance Ability Good Standing Balance Static Standing Balance Ability Fair Dynamic Standing Balance Ability Fair Device Used no AD Standing Balance Comments SLS R and L equal on multiple trials: 8 sec, 6 sec, 8 sec Balance Tests Single Limb Standing Single Limb- Right 8,6,8 Single Limb- Left 8,8,6 Mccann Fall Scale Copyright Permission PT-OP-E Functional Tests Start: 06/10/20 14:36 Freq: Status: Active Protocol: Document 06/10/20 14:30 AW (Rec: 06/10/20 18:01 AW [email or web address]) Functional Tests Single Leg Squat Test Score from 26.5 mat table bilaterally PT-OP-F Manual Assessment Start: 06/10/20 14:36 Freq: Status: Active Protocol: Document 06/10/20 14:30 AW (Rec: 06/10/20 17:51 AW [email or web address]) Manual Assessments Soft Tissue Assessment Soft Tissue Mobility Assessment Significant tone bilateral lumbar paraspinals PT-OP-G Mobility & Gait Start: 06/10/20 14:36 Freq: Status: Active Protocol: Document 06/10/20 14:30 AW (Rec: 06/10/20 17:51 AW [email or web address]) OP Mobility Evaluation Transfers Sit to Stand (+) nikki's sign on multiple observed attempts OP Gait Assessment Gait Gait Assistance Required: Independent Distance (Feet) 200 Assistive Devices Assistive Device None Gait Deviations General Gait Pattern Antalgic,Decreased Stride Length,Decreased Feet Clearance,Lateral Trunk Lean Factors Limiting Gait Function Factors Limiting Gait Function Decreased Activity Tolerance, Decreased Sensation,Decreased Strength,Limited Range of Motion,Pain,Poor Balance Comments Gait Comments Antalgic gait notable for increased trunk rotation to the right and right lateral lean. High steppage gait R>L to compensate for reduced foot clearance. PT-OP-H Neuro Start: 06/10/20 14:36 Freq: Status: Active Protocol: Document 06/10/20 14:30 AW (Rec: 06/10/20 17:51 AW [email or web address]) Sensation Evaluation Gross Sensation Gross Sensation Left LE Impaired,Right LE Impaired Sensation Description Numbness,Tingling Dermatome Impairments L5 Deep Tendon Reflex & Clonus Assessment Deep Tendon Reflex Bilateral Achilles Deep Tendon Reflex 0 Absent Bilateral Patellar Deep Tendon Reflex 2+ Normal PT-OP-J Posture/Palpation/Skin Start: 06/10/20 14:36 Freq: Status: Active Protocol: Document 06/10/20 14:30 AW (Rec: 06/10/20 17:51 AW [email or web address]) Posture Evaluation Comments Posture Comments Swayback with flat lumbar spine. Notable hinge at TL junction 2/2 hardware. PT-OP-K Range of Motion Start: 06/10/20 14:36 Freq: Status: Active Protocol: Document 06/10/20 14:30 AW (Rec: 06/10/20 18:00 AW [email or web address]) Lumbar Spine Range of Motion Lumbar Spine Active Degrees Testing Position Standing Flexion 35 Extension 8 ROM Limitations Soft Tissue Tightness,Pain Comments Side bending with fingertips 14 from the floor bilaterally . Rotation ~25% bilaterally. Hip Goniometric Range of Motion Hip ROM Limitations Comments B hip ROM WNL except IR <15 degrees. PT-OP-L Special Tests Start: 06/10/20 14:36 Freq: Status: Active Protocol: Document 06/10/20 14:30 AW (Rec: 06/10/20 18:00 AW [email or web address]) Special Tests Hip Special Tests Scour Test Test Results right hip positive for pain reproduction PT-OP-M Strength Start: 06/10/20 14:36 Freq: Status: Active Protocol: Document 06/10/20 14:30 AW (Rec: 06/10/20 18:00 AW [email or web address]) Hip Strength Hip Manual Muscle Testing Right Flexion (L2) 4 Good Extension (S1) 3+ Fair+ Abduction 4- Good- External Rotation 4+ Good+ Internal Rotation 4+ Good+ Left Flexion (L2) 4 Good Extension (S1) 3+ Fair+ Abduction 4- Good- External Rotation 4+ Good+ Internal Rotation 4+ Good+ Knee Strength Knee Manual Muscle Testing Right Flexion (S2) 4 Good Extension (L3) 5 Normal Left Flexion (S2) 4 Good Extension (L3) 5 Normal Ankle/Foot Strength Ankle and Foot Manual Muscle Testing Right Dorsiflexion (L4) 4+ Good+ Plantarflexion (S1) 4- Good- Left Dorsiflexion (L4) 4+ Good+ Plantarflexion (S1) 4- Good- Toe Strength Toe Manual Muscle Testing Right Great Toe Extension 4- Good- Comments Left great toe extension 4+/5 PT-OP-Q Treatments Start: 06/10/20 14:36 Freq: Status: Active Protocol: Document 09/11/20 11:15 HH (Rec: 09/11/20 12:06 HH [id number]) Cardio Equipment Bicycle (Upright) Duration (Minutes) 8 Resistance 6 Seat Position 5; 1.7 miles Other slight SOB with break at 6 and 7 min Therapeutic Exercises Supine Exercises SLR Side bilateral Resistance 1# ankle weight Reps/Minutes 8 x2 Comments cues on FRANCINE Standing Exercises hip flexor stretch Side bilateral Reps/Minutes 15 sec hold x 5 eachside Comments cues on neutral spine balance 2 Standing Exercise Name stagger stance, 2 blue foam Reps/Minutes 5 mins balance Standing Exercise Name SLS Side bilateral Reps/Minutes 5 mins Comments floor then blue foam lunges Standing Exercise Name half lunges, with support on grab bar Reps/Minutes 10 x2 step up Standing Exercise Name step up Side bilateral Resistance 8 step Equipment Used no rails, SBA Reps/Minutes 10x2 Manual Therapy Treatment Soft Tissue Mobilization QL Mobilization Type Sustained Pressure,Trigger Point Release Intensity/Depth Moderate Body Position Sidelying Comments improved tissue quality/ reduction in tone post-STM Joint Mobilizations L pelvis Joint rhythmic initiation Grade II Body Position Sidelying Comments elevation and depression PT-OP-R Modalities Start: 06/10/20 14:36 Freq: Status: Active Protocol: Document 08/12/20 12:00 AW (Rec: 08/12/20 12:14 AW [id number]) Hot Pack/Cold Pack Treatment Hot Pack Location lumbar Patient Position Hooklying Treatment Duration (minutes) 15 Patient Tolerance Good Comments end of session PT-OP-T Assessment and Plan Start: 06/10/20 14:36 Freq: Status: Active Protocol: Document 09/11/20 11:15 HH (Rec: 09/11/20 12:06 HH [id number]) Physical Therapy Assessment Goals Five Impairment ROM Short Term Goal (STG) 07/10 pt has been using sock aid for socks and shoe horn for shoes with laces. Bridge Construction Inspector Goal (LTG) 07/31 goal met Pt is able to don shoes and socks without shoe horn and without increase in baseline pain level. LTG Duration 3 months - 09/10/20 Four Impairment unable to particpate in recreational activities Short Term Goal (STG) 07/31 pt has not been able to play golf yet Fdc Goal (LTG) Pt will complete 9 holes of golf without increase in baseline pain level 09/09/20: Update goal to Pt will tolerate 30 minutes standing and walking in order to be able to participate in driving range activities LTG Duration 11/10/20 Three Impairment medium risk of chronicity Fdc Goal (LTG) Pt will score 3 or less total on STarT Back tool to demonstrate decreased likelihood of chronicity and catastrophization. 09/09/20: Pt scores 5 (improved by one point since eval). LTG Duration 11/10/20 Two Impairment balance Short Term Goal (STG) Pt will improve SLS from table at height of 24 bilaterally to demonstrate improved BLE strength and stabilty STG Duration 6 weeks - 07/22/20 Fdc Goal (LTG) Pt will improve SLS from table at height of 22 bilaterally to demonstrate improved BLE strength and stabilty 09/09/20: GOAL PROGRESS Pt able to stand on RLE from 22 height. LLE is challenging but doable from 24, unable at 22 LTG Duration 11/10/20 One Impairment Pt lacks appropriate exercise program Short Term Goal (STG) Pt will be independent with [facility] for support of therapy services provided in clinic MET STG Duration 6 weeks - 07/22/20 Bridge Construction Inspector Goal (LTG) Pt will participate in self- selected aerobic exercise at least twice weekly. LTG Duration 11/10/20 Assessment Summary Assessment pt jeri session well. Added hip flexor stretch and he did need cues for neutral spine and glute engagement. Physical Therapy Plan Frequency and Duration Frequency of Treatment 2x/Week Duration of Treatment 2 months Plan of Care Start Date 09/10/20 Plan of Care End Date 11/10/20 Therapeutic Interventions Therapeutic Interventions Balance Training,Gait Training ,Home Exercise Program,Joint Mobilizations,Manual Therapy, Neuromuscular Re-education, Patient/Caregiver Education, Self-Care/Home Management,Soft Tissue Mobilization,Taping, Therapeutic Activities, Therapeutic Exercises Modalities Cold Pack/Ice Massage,Electric Stimulation,Hot Packs Next Visit Focus/Plan Next Note Type Treatment Note Next Visit Plan single leg strength, stability
--- NOTE | 2020-09-16 12:14 | PT.OTN ---
Current Diagnoses Spondylolisthesis, lumbar region (09/16/20) Spinal stenosis, lumbar region without neurogenic claudication (09/16/20) Postlaminectomy syndrome, not elsewhere classified (09/16/20) Difficulty in walking, not elsewhere classified (09/16/20) Abnormal posture (09/16/20) Physical Therapy Treatment Note PT-OP-A Visit Information Start: 06/10/20 14:36 Freq: Status: Active Protocol: Document 09/16/20 12:00 AW (Rec: 09/16/20 12:08 AW [id number]) Out-Patient Physical Therapy Visit Information Visit Information Visit Type Treatment Note Visit Note KX modifier needed. Visit Start Time 11:15 Visit Stop Time 12:00 Total Visit Minutes 45 Visit Number 27 Number of DIGITAL STRATEGY MANAGER Visits 0 Evaluation Information Evaluation Date 06/10/20 PT-OP-B Current Condition Start: 06/10/20 14:36 Freq: Status: Active Protocol: Document 06/10/20 14:30 AW (Rec: 06/10/20 15:22 AW [id number]) Current Condition History of Current Condition Onset Date years Current Complaints LBP, BLE pain (left worse than right) History of Current Condition Pt has had three lumbar surgeries. The first was 20 years ago - a laminotomy which provided relief for ~10 years . Second surgery 10 years ago was laminectomy which provided relief for a while. He started to have pain again about a year ago and had TLIF two months ago. He's been trying to take it easy since surgery. He complains he is unable to walk or stand >10 min due to pain which he describes as stiffness. He is unable to bend far enough to comfortably reach his feet, interfering with dressing and other self-care tasks. He also has pain in his hips after sitting more than 10 minutes. When he gets up from resting position, he tends to walk in bent-forward position at first. Pt also reports numbness or dull light touch sensation in bilateral feet which he says is getting better little by little since surgery. Prior Treatments and Tests - April 2020: L3-S1 TLIF, L2 -3 hemilami - Prior PT for back pain Future Testing and Treatments Planned None identified Treatment Goals Patient/Caregiver Goals Pt would like to get back to golf in a few months. Have ROM to be able to don shoes/socks more easily, be able to lift 40 pounds, and generally increase BLE strength. Prior Functional Status Baseline Function- ADL's Independent Baseline Function- Mobility Independent Baseline Function- Gait no AD except in the one week following surgery Baseline Function- Work/School Pt is retired. 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 Needs to use a shoe horn Functional Limitations- Mobility/Gait Antalgic. Pt ambulates with significant R trunk rotation and R lateral lean. Also demonstrates steppage gait R>L for clearance of right foot. Functional Limitations- Recreation/ Unable to participate in golf. Hobbies Functional Limitations- Other Unable to lift more than light grocery bags without pain. PT-OP-C Subjective Start: 06/10/20 14:36 Freq: Status: Active Protocol: Document 09/16/20 12:00 AW (Rec: 09/16/20 12:08 AW [id number]) OP-PT Subjective Patient Comments Patient Comments Considering using sublingual CBD and cutting back on other pain medications. Getting occasional sudden sharp pain in left QL but resolves fairly quickly. PT-OP-D Balance Start: 06/10/20 14:36 Freq: Status: Active Protocol: Document 06/10/20 14:30 AW (Rec: 06/10/20 17:51 AW [email or web address]) OP-PT Balance Assessment Sitting Balance Static Sitting Balance Ability Good Dynamic Sitting Balance Ability Good Standing Balance Static Standing Balance Ability Fair Dynamic Standing Balance Ability Fair Device Used no AD Standing Balance Comments SLS R and L equal on multiple trials: 8 sec, 6 sec, 8 sec Balance Tests Single Limb Standing Single Limb- Right 8,6,8 Single Limb- Left 8,8,6 Mccann Fall Scale Copyright Permission PT-OP-E Functional Tests Start: 06/10/20 14:36 Freq: Status: Active Protocol: Document 06/10/20 14:30 AW (Rec: 06/10/20 18:01 AW [email or web address]) Functional Tests Single Leg Squat Test Score from 26.5 mat table bilaterally PT-OP-F Manual Assessment Start: 06/10/20 14:36 Freq: Status: Active Protocol: Document 06/10/20 14:30 AW (Rec: 06/10/20 17:51 AW [email or web address]) Manual Assessments Soft Tissue Assessment Soft Tissue Mobility Assessment Significant tone bilateral lumbar paraspinals PT-OP-G Mobility & Gait Start: 06/10/20 14:36 Freq: Status: Active Protocol: Document 06/10/20 14:30 AW (Rec: 06/10/20 17:51 AW [email or web address]) OP Mobility Evaluation Transfers Sit to Stand (+) nikki's sign on multiple observed attempts OP Gait Assessment Gait Gait Assistance Required: Independent Distance (Feet) 200 Assistive Devices Assistive Device None Gait Deviations General Gait Pattern Antalgic,Decreased Stride Length,Decreased Feet Clearance,Lateral Trunk Lean Factors Limiting Gait Function Factors Limiting Gait Function Decreased Activity Tolerance, Decreased Sensation,Decreased Strength,Limited Range of Motion,Pain,Poor Balance Comments Gait Comments Antalgic gait notable for increased trunk rotation to the right and right lateral lean. High steppage gait R>L to compensate for reduced foot clearance. PT-OP-H Neuro Start: 06/10/20 14:36 Freq: Status: Active Protocol: Document 06/10/20 14:30 AW (Rec: 06/10/20 17:51 AW [email or web address]) Sensation Evaluation Gross Sensation Gross Sensation Left LE Impaired,Right LE Impaired Sensation Description Numbness,Tingling Dermatome Impairments L5 Deep Tendon Reflex & Clonus Assessment Deep Tendon Reflex Bilateral Achilles Deep Tendon Reflex 0 Absent Bilateral Patellar Deep Tendon Reflex 2+ Normal PT-OP-J Posture/Palpation/Skin Start: 06/10/20 14:36 Freq: Status: Active Protocol: Document 06/10/20 14:30 AW (Rec: 06/10/20 17:51 AW [email or web address]) Posture Evaluation Comments Posture Comments Swayback with flat lumbar spine. Notable hinge at TL junction 2/2 hardware. PT-OP-K Range of Motion Start: 06/10/20 14:36 Freq: Status: Active Protocol: Document 06/10/20 14:30 AW (Rec: 06/10/20 18:00 AW [email or web address]) Lumbar Spine Range of Motion Lumbar Spine Active Degrees Testing Position Standing Flexion 35 Extension 8 ROM Limitations Soft Tissue Tightness,Pain Comments Side bending with fingertips 14 from the floor bilaterally . Rotation ~25% bilaterally. Hip Goniometric Range of Motion Hip ROM Limitations Comments B hip ROM WNL except IR <15 degrees. PT-OP-L Special Tests Start: 06/10/20 14:36 Freq: Status: Active Protocol: Document 06/10/20 14:30 AW (Rec: 06/10/20 18:00 AW [email or web address]) Special Tests Hip Special Tests Scour Test Test Results right hip positive for pain reproduction PT-OP-M Strength Start: 06/10/20 14:36 Freq: Status: Active Protocol: Document 06/10/20 14:30 AW (Rec: 06/10/20 18:00 AW [email or web address]) Hip Strength Hip Manual Muscle Testing Right Flexion (L2) 4 Good Extension (S1) 3+ Fair+ Abduction 4- Good- External Rotation 4+ Good+ Internal Rotation 4+ Good+ Left Flexion (L2) 4 Good Extension (S1) 3+ Fair+ Abduction 4- Good- External Rotation 4+ Good+ Internal Rotation 4+ Good+ Knee Strength Knee Manual Muscle Testing Right Flexion (S2) 4 Good Extension (L3) 5 Normal Left Flexion (S2) 4 Good Extension (L3) 5 Normal Ankle/Foot Strength Ankle and Foot Manual Muscle Testing Right Dorsiflexion (L4) 4+ Good+ Plantarflexion (S1) 4- Good- Left Dorsiflexion (L4) 4+ Good+ Plantarflexion (S1) 4- Good- Toe Strength Toe Manual Muscle Testing Right Great Toe Extension 4- Good- Comments Left great toe extension 4+/5 PT-OP-Q Treatments Start: 06/10/20 14:36 Freq: Status: Active Protocol: Document 09/16/20 12:00 AW (Rec: 09/16/20 12:08 AW [id number]) Cardio Equipment Bicycle (Upright) Duration (Minutes) 8 Resistance 6 Seat Position 5; 1.7 miles Other 1.6 miles; no breaks Therapeutic Exercises Supine Exercises SLR Side bilateral Resistance 2# ankle weight Reps/Minutes 8 x2 Comments form breakdown; reduced back to 1# with improvement noted Asher test stretch Supine Exercise Name Asher test stretch Side bilateral Equipment Used 30 SH x 2 Standing Exercises hip flexor stretch Side bilateral Reps/Minutes 15 sec hold x 5 eachside Comments cued tall posture; glute engagement balance 2 Standing Exercise Name stagger stance, 2 blue foam Reps/Minutes 5 mins Comments focus on weight distribution balance Standing Exercise Name SLS Side bilateral Equipment Used floor first; then blue foam Reps/Minutes 5 mins Comments 13 sec LLE; 10 sec RLE step up Standing Exercise Name step up Side bilateral Resistance 12 step Equipment Used no rails, SBA Reps/Minutes 20 Comments alternating Manual Therapy Treatment Soft Tissue Mobilization QL Mobilization Type Sustained Pressure,Trigger Point Release Intensity/Depth Moderate Body Position Sidelying Comments improved tissue quality/ reduction in tone post-STM PT-OP-R Modalities Start: 06/10/20 14:36 Freq: Status: Active Protocol: Document 08/12/20 12:00 AW (Rec: 08/12/20 12:14 AW [id number]) Hot Pack/Cold Pack Treatment Hot Pack Location lumbar Patient Position Hooklying Treatment Duration (minutes) 15 Patient Tolerance Good Comments end of session PT-OP-T Assessment and Plan Start: 06/10/20 14:36 Freq: Status: Active Protocol: Document 09/16/20 12:00 AW (Rec: 09/16/20 12:14 AW [email or web address]) Physical Therapy Assessment Goals Five Impairment ROM Short Term Goal (STG) 07/10 pt has been using sock aid for socks and shoe horn for shoes with laces. Biological Chemist Goal (LTG) 07/31 goal met Pt is able to don shoes and socks without shoe horn and without increase in baseline pain level. LTG Duration 3 months - 09/10/20 Four Impairment unable to particpate in recreational activities Short Term Goal (STG) 07/31 pt has not been able to play golf yet Biological Chemist Goal (LTG) Pt will complete 9 holes of golf without increase in baseline pain level 09/09/20: Update goal to Pt will tolerate 30 minutes standing and walking in order to be able to participate in driving range activities LTG Duration 11/10/20 Three Impairment medium risk of chronicity Shelter Goal (LTG) Pt will score 3 or less total on STarT Back tool to demonstrate decreased likelihood of chronicity and catastrophization. 09/09/20: Pt scores 5 (improved by one point since eval). LTG Duration 11/10/20 Two Impairment balance Short Term Goal (STG) Pt will improve SLS from table at height of 24 bilaterally to demonstrate improved BLE strength and stabilty STG Duration 6 weeks - 07/22/20 Biological Chemist Goal (LTG) Pt will improve SLS from table at height of 22 bilaterally to demonstrate improved BLE strength and stabilty 09/09/20: GOAL PROGRESS Pt able to stand on RLE from 22 height. LLE is challenging but doable from 24, unable at 22 LTG Duration 11/10/20 One Impairment Pt lacks appropriate exercise program Short Term Goal (STG) Pt will be independent with HEP for support of therapy services provided in clinic MET STG Duration 6 weeks - 07/22/20 Shelter Goal (LTG) Pt will participate in self- selected aerobic exercise at least twice weekly. LTG Duration 11/10/20 Assessment Summary Assessment Pt requires frequent cues for core engagement with all standing activities. Need to consider consolidation of HEP to improve pt independent performance. Discussed dropping visits to once weekly in October and pt is hesitant but understands rationale. Physical Therapy Plan Frequency and Duration Frequency of Treatment 2x/Week Duration of Treatment 2 months Plan of Care Start Date 09/10/20 Plan of Care End Date 11/10/20 Therapeutic Interventions Therapeutic Interventions Balance Training,Gait Training ,Home Exercise Program,Joint Mobilizations,Manual Therapy, Neuromuscular Re-education, Patient/Caregiver Education, Self-Care/Home Management,Soft Tissue Mobilization,Taping, Therapeutic Activities, Therapeutic Exercises Modalities Cold Pack/Ice Massage,Electric Stimulation,Hot Packs Next Visit Focus/Plan Next Note Type Treatment Note Next Visit Plan single leg strength, stability
--- NOTE | 2020-09-18 12:04 | PT.OTN ---
Current Diagnoses Spondylolisthesis, lumbar region (09/18/20) Spinal stenosis, lumbar region without neurogenic claudication (09/18/20) Postlaminectomy syndrome, not elsewhere classified (09/18/20) Difficulty in walking, not elsewhere classified (09/18/20) Abnormal posture (09/18/20) Physical Therapy Treatment Note PT-OP-A Visit Information Start: 06/10/20 14:36 Freq: Status: Active Protocol: Document 09/18/20 11:11 HH (Rec: 09/18/20 12:04 HH [id number]) Out-Patient Physical Therapy Visit Information Visit Information Visit Type Treatment Note Visit Note KX modifier needed. Visit Start Time 11:16 Visit Stop Time 12:00 Total Visit Minutes 44 Visit Number 27 Number of CUPOLA LINER HELPER Visits 0 PT-OP-B Current Condition Start: 06/10/20 14:36 Freq: Status: Active Protocol: Document 06/10/20 14:30 AW (Rec: 06/10/20 15:22 AW [id number]) Current Condition History of Current Condition Onset Date years Current Complaints LBP, BLE pain (left worse than right) History of Current Condition Pt has had three lumbar surgeries. The first was 20 years ago - a laminotomy which provided relief for ~10 years . Second surgery 10 years ago was laminectomy which provided relief for a while. He started to have pain again about a year ago and had TLIF two months ago. He's been trying to take it easy since surgery. He complains he is unable to walk or stand >10 min due to pain which he describes as stiffness. He is unable to bend far enough to comfortably reach his feet, interfering with dressing and other self-care tasks. He also has pain in his hips after sitting more than 10 minutes. When he gets up from resting position, he tends to walk in bent-forward position at first. Pt also reports numbness or dull light touch sensation in bilateral feet which he says is getting better little by little since surgery. Prior Treatments and Tests - April 2020: L3-S1 TLIF, L2 -3 hemilami - Prior PT for back pain Future Testing and Treatments Planned None identified Treatment Goals Patient/Caregiver Goals Pt would like to get back to golf in a few months. Have ROM to be able to don shoes/socks more easily, be able to lift 40 pounds, and generally increase BLE strength. Prior Functional Status Baseline Function- ADL's Independent Baseline Function- Mobility Independent Baseline Function- Gait no AD except in the one week following surgery Baseline Function- Work/School Pt is retired. 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 Needs to use a shoe horn Functional Limitations- Mobility/Gait Antalgic. Pt ambulates with significant R trunk rotation and R lateral lean. Also demonstrates steppage gait R>L for clearance of right foot. Functional Limitations- Recreation/ Unable to participate in golf. Hobbies Functional Limitations- Other Unable to lift more than light grocery bags without pain. PT-OP-C Subjective Start: 06/10/20 14:36 Freq: Status: Active Protocol: Document 09/18/20 11:11 HH (Rec: 09/18/20 12:04 HH [id number]) OP-PT Subjective Patient Comments Patient Comments Qiana been taking less vicodin and hydrocodone and use the CBD oil. Im doing okay so far. PT-OP-D Balance Start: 06/10/20 14:36 Freq: Status: Active Protocol: Document 06/10/20 14:30 AW (Rec: 06/10/20 17:51 AW [email or web address]) OP-PT Balance Assessment Sitting Balance Static Sitting Balance Ability Good Dynamic Sitting Balance Ability Good Standing Balance Static Standing Balance Ability Fair Dynamic Standing Balance Ability Fair Device Used no AD Standing Balance Comments SLS R and L equal on multiple trials: 8 sec, 6 sec, 8 sec Balance Tests Single Limb Standing Single Limb- Right 8,6,8 Single Limb- Left 8,8,6 Mccann Fall Scale Copyright Permission PT-OP-E Functional Tests Start: 06/10/20 14:36 Freq: Status: Active Protocol: Document 06/10/20 14:30 AW (Rec: 06/10/20 18:01 AW [email or web address]) Functional Tests Single Leg Squat Test Score from 26.5 mat table bilaterally PT-OP-F Manual Assessment Start: 06/10/20 14:36 Freq: Status: Active Protocol: Document 06/10/20 14:30 AW (Rec: 06/10/20 17:51 AW [email or web address]) Manual Assessments Soft Tissue Assessment Soft Tissue Mobility Assessment Significant tone bilateral lumbar paraspinals PT-OP-G Mobility & Gait Start: 06/10/20 14:36 Freq: Status: Active Protocol: Document 06/10/20 14:30 AW (Rec: 06/10/20 17:51 AW [email or web address]) OP Mobility Evaluation Transfers Sit to Stand (+) nikki's sign on multiple observed attempts OP Gait Assessment Gait Gait Assistance Required: Independent Distance (Feet) 200 Assistive Devices Assistive Device None Gait Deviations General Gait Pattern Antalgic,Decreased Stride Length,Decreased Feet Clearance,Lateral Trunk Lean Factors Limiting Gait Function Factors Limiting Gait Function Decreased Activity Tolerance, Decreased Sensation,Decreased Strength,Limited Range of Motion,Pain,Poor Balance Comments Gait Comments Antalgic gait notable for increased trunk rotation to the right and right lateral lean. High steppage gait R>L to compensate for reduced foot clearance. PT-OP-H Neuro Start: 06/10/20 14:36 Freq: Status: Active Protocol: Document 06/10/20 14:30 AW (Rec: 06/10/20 17:51 AW [email or web address]) Sensation Evaluation Gross Sensation Gross Sensation Left LE Impaired,Right LE Impaired Sensation Description Numbness,Tingling Dermatome Impairments L5 Deep Tendon Reflex & Clonus Assessment Deep Tendon Reflex Bilateral Achilles Deep Tendon Reflex 0 Absent Bilateral Patellar Deep Tendon Reflex 2+ Normal PT-OP-J Posture/Palpation/Skin Start: 06/10/20 14:36 Freq: Status: Active Protocol: Document 06/10/20 14:30 AW (Rec: 06/10/20 17:51 AW [email or web address]) Posture Evaluation Comments Posture Comments Swayback with flat lumbar spine. Notable hinge at TL junction 2/2 hardware. PT-OP-K Range of Motion Start: 06/10/20 14:36 Freq: Status: Active Protocol: Document 06/10/20 14:30 AW (Rec: 06/10/20 18:00 AW [email or web address]) Lumbar Spine Range of Motion Lumbar Spine Active Degrees Testing Position Standing Flexion 35 Extension 8 ROM Limitations Soft Tissue Tightness,Pain Comments Side bending with fingertips 14 from the floor bilaterally . Rotation ~25% bilaterally. Hip Goniometric Range of Motion Hip ROM Limitations Comments B hip ROM WNL except IR <15 degrees. PT-OP-L Special Tests Start: 06/10/20 14:36 Freq: Status: Active Protocol: Document 06/10/20 14:30 AW (Rec: 06/10/20 18:00 AW [email or web address]) Special Tests Hip Special Tests Scour Test Test Results right hip positive for pain reproduction PT-OP-M Strength Start: 06/10/20 14:36 Freq: Status: Active Protocol: Document 06/10/20 14:30 AW (Rec: 06/10/20 18:00 AW [email or web address]) Hip Strength Hip Manual Muscle Testing Right Flexion (L2) 4 Good Extension (S1) 3+ Fair+ Abduction 4- Good- External Rotation 4+ Good+ Internal Rotation 4+ Good+ Left Flexion (L2) 4 Good Extension (S1) 3+ Fair+ Abduction 4- Good- External Rotation 4+ Good+ Internal Rotation 4+ Good+ Knee Strength Knee Manual Muscle Testing Right Flexion (S2) 4 Good Extension (L3) 5 Normal Left Flexion (S2) 4 Good Extension (L3) 5 Normal Ankle/Foot Strength Ankle and Foot Manual Muscle Testing Right Dorsiflexion (L4) 4+ Good+ Plantarflexion (S1) 4- Good- Left Dorsiflexion (L4) 4+ Good+ Plantarflexion (S1) 4- Good- Toe Strength Toe Manual Muscle Testing Right Great Toe Extension 4- Good- Comments Left great toe extension 4+/5 PT-OP-Q Treatments Start: 06/10/20 14:36 Freq: Status: Active Protocol: Document 09/18/20 11:11 HH (Rec: 09/18/20 12:04 HH [id number]) Cardio Equipment Bicycle (Upright) Duration (Minutes) 8 Resistance 6 Seat Position 5; 1.7 miles Other 1.6 miles; no breaks, able to maintain conversation Therapeutic Exercises Supine Exercises bridging Side bilateral Equipment Used yellow band at knees Reps/Minutes 8 x2 LTR Side bilateral Equipment Used red therapy ball Reps/Minutes 10 Sidelying Exercises clamshell Sidelying Exercise Name clamshell Side bilateral Reps/Minutes x8 Comments cued neutral pelvis Standing Exercises hip abd Side bilateral Reps/Minutes 10 x2 balance 2 Standing Exercise Name stagger stance, 2 blue foam Reps/Minutes 5 mins Comments focus on weight distribution balance Standing Exercise Name SLS Side bilateral Equipment Used then blue foam Reps/Minutes 5 mins squat Equipment Used 10 lbs on cable Reps/Minutes 10 x2 Comments cues on neutral spine, hip extension Manual Therapy Treatment Soft Tissue Mobilization QL Mobilization Type Sustained Pressure,Trigger Point Release Intensity/Depth Moderate Body Position Sidelying Comments improved tissue quality/ reduction in tone today PT-OP-R Modalities Start: 06/10/20 14:36 Freq: Status: Active Protocol: Document 08/12/20 12:00 AW (Rec: 08/12/20 12:14 AW [id number]) Hot Pack/Cold Pack Treatment Hot Pack Location lumbar Patient Position Hooklying Treatment Duration (minutes) 15 Patient Tolerance Good Comments end of session PT-OP-T Assessment and Plan Start: 06/10/20 14:36 Freq: Status: Active Protocol: Document 09/18/20 11:11 HH (Rec: 09/18/20 12:04 HH [id number]) Physical Therapy Assessment Goals Five Impairment ROM Short Term Goal (STG) 07/10 pt has been using sock aid for socks and shoe horn for shoes with laces. Assisted Living Home Director Goal (LTG) 07/31 goal met Pt is able to don shoes and socks without shoe horn and without increase in baseline pain level. LTG Duration 3 months - 09/10/20 Four Impairment unable to particpate in recreational activities Short Term Goal (STG) 07/31 pt has not been able to play golf yet Longterm Goal (LTG) Pt will complete 9 holes of golf without increase in baseline pain level 09/09/20: Update goal to Pt will tolerate 30 minutes standing and walking in order to be able to participate in driving range activities LTG Duration 11/10/20 Three Impairment medium risk of chronicity Longterm Goal (LTG) Pt will score 3 or less total on STarT Back tool to demonstrate decreased likelihood of chronicity and catastrophization. 09/09/20: Pt scores 5 (improved by one point since eval). LTG Duration 11/10/20 Two Impairment balance Short Term Goal (STG) Pt will improve SLS from table at height of 24 bilaterally to demonstrate improved BLE strength and stabilty STG Duration 6 weeks - 07/22/20 Longterm Goal (LTG) Pt will improve SLS from table at height of 22 bilaterally to demonstrate improved BLE strength and stabilty 09/09/20: GOAL PROGRESS Pt able to stand on RLE from 22 height. LLE is challenging but doable from 24, unable at 22 LTG Duration 11/10/20 One Impairment Pt lacks appropriate exercise program Short Term Goal (STG) Pt will be independent with HEP for support of therapy services provided in clinic MET STG Duration 6 weeks - 07/22/20 Longterm Goal (LTG) Pt will participate in self- selected aerobic exercise at least twice weekly. LTG Duration 11/10/20 Physical Therapy Plan Frequency and Duration Frequency of Treatment 2x/Week Duration of Treatment 2 months Plan of Care Start Date 09/10/20 Plan of Care End Date 11/10/20 Therapeutic Interventions Therapeutic Interventions Balance Training,Gait Training ,Home Exercise Program,Joint Mobilizations,Manual Therapy, Neuromuscular Re-education, Patient/Caregiver Education, Self-Care/Home Management,Soft Tissue Mobilization,Taping, Therapeutic Activities, Therapeutic Exercises Modalities Cold Pack/Ice Massage,Electric Stimulation,Hot Packs Next Visit Focus/Plan Next Note Type Treatment Note Next Visit Plan single leg strength, stability
--- NOTE | 2020-09-23 12:07 | PT.OTN ---
Current Diagnoses Spondylolisthesis, lumbar region (09/23/20) Spinal stenosis, lumbar region without neurogenic claudication (09/23/20) Postlaminectomy syndrome, not elsewhere classified (09/23/20) Difficulty in walking, not elsewhere classified (09/23/20) Abnormal posture (09/23/20) Physical Therapy Treatment Note PT-OP-A Visit Information Start: 06/10/20 14:36 Freq: Status: Active Protocol: Document 09/23/20 12:00 AW (Rec: 09/23/20 12:04 AW [id number]) Out-Patient Physical Therapy Visit Information Visit Information Visit Type Treatment Note Visit Start Time 11:17 Visit Stop Time 12:00 Total Visit Minutes 43 Visit Number 28 Number of PUBLIC HEALTH DIETITIAN Visits 0 Evaluation Information Evaluation Date 06/10/20 PT-OP-B Current Condition Start: 06/10/20 14:36 Freq: Status: Active Protocol: Document 06/10/20 14:30 AW (Rec: 06/10/20 15:22 AW [id number]) Current Condition History of Current Condition Onset Date years Current Complaints LBP, BLE pain (left worse than right) History of Current Condition Pt has had three lumbar surgeries. The first was 20 years ago - a laminotomy which provided relief for ~10 years . Second surgery 10 years ago was laminectomy which provided relief for a while. He started to have pain again about a year ago and had TLIF two months ago. He's been trying to take it easy since surgery. He complains he is unable to walk or stand >10 min due to pain which he describes as stiffness. He is unable to bend far enough to comfortably reach his feet, interfering with dressing and other self-care tasks. He also has pain in his hips after sitting more than 10 minutes. When he gets up from resting position, he tends to walk in bent-forward position at first. Pt also reports numbness or dull light touch sensation in bilateral feet which he says is getting better little by little since surgery. Prior Treatments and Tests - April 2020: L3-S1 TLIF, L2 -3 hemilami - Prior PT for back pain Future Testing and Treatments Planned None identified Treatment Goals Patient/Caregiver Goals Pt would like to get back to golf in a few months. Have ROM to be able to don shoes/socks more easily, be able to lift 40 pounds, and generally increase BLE strength. Prior Functional Status Baseline Function- ADL's Independent Baseline Function- Mobility Independent Baseline Function- Gait no AD except in the one week following surgery Baseline Function- Work/School Pt is retired. 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 Needs to use a shoe horn Functional Limitations- Mobility/Gait Antalgic. Pt ambulates with significant R trunk rotation and R lateral lean. Also demonstrates steppage gait R>L for clearance of right foot. Functional Limitations- Recreation/ Unable to participate in golf. Hobbies Functional Limitations- Other Unable to lift more than light grocery bags without pain. 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 PT-OP-D Balance Start: 06/10/20 14:36 Freq: Status: Active Protocol: Document 06/10/20 14:30 AW (Rec: 06/10/20 17:51 AW [email or web address]) OP-PT Balance Assessment Sitting Balance Static Sitting Balance Ability Good Dynamic Sitting Balance Ability Good Standing Balance Static Standing Balance Ability Fair Dynamic Standing Balance Ability Fair Device Used no AD Standing Balance Comments SLS R and L equal on multiple trials: 8 sec, 6 sec, 8 sec Balance Tests Single Limb Standing Single Limb- Right 8,6,8 Single Limb- Left 8,8,6 Mccann Fall Scale Copyright Permission PT-OP-E Functional Tests Start: 06/10/20 14:36 Freq: Status: Active Protocol: Document 06/10/20 14:30 AW (Rec: 06/10/20 18:01 AW [email or web address]) Functional Tests Single Leg Squat Test Score from 26.5 mat table bilaterally PT-OP-F Manual Assessment Start: 06/10/20 14:36 Freq: Status: Active Protocol: Document 06/10/20 14:30 AW (Rec: 06/10/20 17:51 AW [email or web address]) Manual Assessments Soft Tissue Assessment Soft Tissue Mobility Assessment Significant tone bilateral lumbar paraspinals PT-OP-G Mobility & Gait Start: 06/10/20 14:36 Freq: Status: Active Protocol: Document 06/10/20 14:30 AW (Rec: 06/10/20 17:51 AW [email or web address]) OP Mobility Evaluation Transfers Sit to Stand (+) nikki's sign on multiple observed attempts OP Gait Assessment Gait Gait Assistance Required: Independent Distance (Feet) 200 Assistive Devices Assistive Device None Gait Deviations General Gait Pattern Antalgic,Decreased Stride Length,Decreased Feet Clearance,Lateral Trunk Lean Factors Limiting Gait Function Factors Limiting Gait Function Decreased Activity Tolerance, Decreased Sensation,Decreased Strength,Limited Range of Motion,Pain,Poor Balance Comments Gait Comments Antalgic gait notable for increased trunk rotation to the right and right lateral lean. High steppage gait R>L to compensate for reduced foot clearance. PT-OP-H Neuro Start: 06/10/20 14:36 Freq: Status: Active Protocol: Document 06/10/20 14:30 AW (Rec: 06/10/20 17:51 AW [email or web address]) Sensation Evaluation Gross Sensation Gross Sensation Left LE Impaired,Right LE Impaired Sensation Description Numbness,Tingling Dermatome Impairments L5 Deep Tendon Reflex & Clonus Assessment Deep Tendon Reflex Bilateral Achilles Deep Tendon Reflex 0 Absent Bilateral Patellar Deep Tendon Reflex 2+ Normal PT-OP-J Posture/Palpation/Skin Start: 06/10/20 14:36 Freq: Status: Active Protocol: Document 06/10/20 14:30 AW (Rec: 06/10/20 17:51 AW [email or web address]) Posture Evaluation Comments Posture Comments Swayback with flat lumbar spine. Notable hinge at TL junction 2/2 hardware. PT-OP-K Range of Motion Start: 06/10/20 14:36 Freq: Status: Active Protocol: Document 06/10/20 14:30 AW (Rec: 06/10/20 18:00 AW [email or web address]) Lumbar Spine Range of Motion Lumbar Spine Active Degrees Testing Position Standing Flexion 35 Extension 8 ROM Limitations Soft Tissue Tightness,Pain Comments Side bending with fingertips 14 from the floor bilaterally . Rotation ~25% bilaterally. Hip Goniometric Range of Motion Hip ROM Limitations Comments B hip ROM WNL except IR <15 degrees. PT-OP-L Special Tests Start: 06/10/20 14:36 Freq: Status: Active Protocol: Document 06/10/20 14:30 AW (Rec: 06/10/20 18:00 AW [email or web address]) Special Tests Hip Special Tests Scour Test Test Results right hip positive for pain reproduction PT-OP-M Strength Start: 06/10/20 14:36 Freq: Status: Active Protocol: Document 06/10/20 14:30 AW (Rec: 06/10/20 18:00 AW [email or web address]) Hip Strength Hip Manual Muscle Testing Right Flexion (L2) 4 Good Extension (S1) 3+ Fair+ Abduction 4- Good- External Rotation 4+ Good+ Internal Rotation 4+ Good+ Left Flexion (L2) 4 Good Extension (S1) 3+ Fair+ Abduction 4- Good- External Rotation 4+ Good+ Internal Rotation 4+ Good+ Knee Strength Knee Manual Muscle Testing Right Flexion (S2) 4 Good Extension (L3) 5 Normal Left Flexion (S2) 4 Good Extension (L3) 5 Normal Ankle/Foot Strength Ankle and Foot Manual Muscle Testing Right Dorsiflexion (L4) 4+ Good+ Plantarflexion (S1) 4- Good- Left Dorsiflexion (L4) 4+ Good+ Plantarflexion (S1) 4- Good- Toe Strength Toe Manual Muscle Testing Right Great Toe Extension 4- Good- Comments Left great toe extension 4+/5 PT-OP-Q Treatments Start: 06/10/20 14:36 Freq: Status: Active Protocol: Document 09/23/20 12:00 AW (Rec: 09/23/20 12:04 AW [id number]) Cardio Equipment Bicycle (Upright) Duration (Minutes) 8 Resistance 6 Seat Position 5 Other 1.7 miles; no breaks, able to maintain conversation Therapeutic Exercises Supine Exercises LTR Side bilateral Equipment Used red therapy ball Reps/Minutes 10 Sitting Exercises trunk rotation Sitting Exercise Name trunk rotation Equipment Used pvc Reps/Minutes 3 min Comments hips fixed in sitting; pipe behind back Standing Exercises hip flexor stretch Side bilateral Reps/Minutes 15 sec hold x 5 eachside Comments cued tall posture; glute engagement lunges Standing Exercise Name half lunges, with support on grab bar Reps/Minutes 10 x2 step up Standing Exercise Name step up - lateral Side bilateral Resistance 12 step Equipment Used no rails, SBA for RLE, CGA for LLE Reps/Minutes 10 x 2 Manual Therapy Treatment Soft Tissue Mobilization QL Mobilization Type Sustained Pressure,Trigger Point Release Intensity/Depth Moderate Body Position Sidelying Comments continued improvement in tone gluteal Mobilization Type Sustained Pressure,Trigger Point Release Intensity/Depth Moderate Body Position Sidelying Comments soreness at L gluteal muscles and piriformis; performed PROM and overpressure into rotation Joint Mobilizations L pelvis Joint coxofemoral Grade III Body Position Supine Reps/Duration 3 min Comments long axis distraction PT-OP-R Modalities Start: 06/10/20 14:36 Freq: Status: Active Protocol: Document 08/12/20 12:00 AW (Rec: 08/12/20 12:14 AW [id number]) Hot Pack/Cold Pack Treatment Hot Pack Location lumbar Patient Position Hooklying Treatment Duration (minutes) 15 Patient Tolerance Good Comments end of session PT-OP-T Assessment and Plan Start: 06/10/20 14:36 Freq: Status: Active Protocol: Document 09/23/20 12:00 AW (Rec: 09/23/20 12:07 AW [id number]) Physical Therapy Assessment Goals Five Impairment ROM Short Term Goal (STG) 07/10 pt has been using sock aid for socks and shoe horn for shoes with laces. Residential Sales Representative Goal (LTG) 07/31 goal met Pt is able to don shoes and socks without shoe horn and without increase in baseline pain level. LTG Duration 3 months - 09/10/20 Four Impairment unable to particpate in recreational activities Short Term Goal (STG) 07/31 pt has not been able to play golf yet Residential Sales Representative Goal (LTG) Pt will complete 9 holes of golf without increase in baseline pain level 09/09/20: Update goal to Pt will tolerate 30 minutes standing and walking in order to be able to participate in driving range activities LTG Duration 11/10/20 Three Impairment medium risk of chronicity Skilled Nursing Goal (LTG) Pt will score 3 or less total on STarT Back tool to demonstrate decreased likelihood of chronicity and catastrophization. 09/09/20: Pt scores 5 (improved by one point since eval). LTG Duration 11/10/20 Two Impairment balance Short Term Goal (STG) Pt will improve SLS from table at height of 24 bilaterally to demonstrate improved BLE strength and stabilty STG Duration 6 weeks - 07/22/20 Skilled Nursing Goal (LTG) Pt will improve SLS from table at height of 22 bilaterally to demonstrate improved BLE strength and stabilty 09/09/20: GOAL PROGRESS Pt able to stand on RLE from 22 height. LLE is challenging but doable from 24, unable at 22 LTG Duration 11/10/20 One Impairment Pt lacks appropriate exercise program Short Term Goal (STG) Pt will be independent with HEP for support of therapy services provided in clinic MET STG Duration 6 weeks - 07/22/20 Skilled Nursing Goal (LTG) Pt will participate in self- selected aerobic exercise at least twice weekly. LTG Duration 11/10/20 Assessment Summary Assessment Pt tolerated treatment well. Continued discussion about consolidating HEP to improve independent performance. Plan to issue written HEP in next few visits. Physical Therapy Plan Frequency and Duration Frequency of Treatment 2x/Week Duration of Treatment 2 months Plan of Care Start Date 09/10/20 Plan of Care End Date 11/10/20 Therapeutic Interventions Therapeutic Interventions Balance Training,Gait Training ,Home Exercise Program,Joint Mobilizations,Manual Therapy, Neuromuscular Re-education, Patient/Caregiver Education, Self-Care/Home Management,Soft Tissue Mobilization,Taping, Therapeutic Activities, Therapeutic Exercises Modalities Cold Pack/Ice Massage,Electric Stimulation,Hot Packs Next Visit Focus/Plan Next Note Type Treatment Note Next Visit Plan single leg strength, stability , consolidate HEP
--- NOTE | 2020-09-30 12:13 | PT.OTN ---
Current Diagnoses Spondylolisthesis, lumbar region (09/30/20) Spinal stenosis, lumbar region without neurogenic claudication (09/30/20) Postlaminectomy syndrome, not elsewhere classified (09/30/20) Difficulty in walking, not elsewhere classified (09/30/20) Abnormal posture (09/30/20) Physical Therapy Treatment Note PT-OP-A Visit Information Start: 06/10/20 14:36 Freq: Status: Active Protocol: Document 09/30/20 12:00 AW (Rec: 09/30/20 12:10 AW [id number]) Out-Patient Physical Therapy Visit Information Visit Information Visit Type Treatment Note Visit Note KX modifier needed. Visit Start Time 11:16 Visit Stop Time 12:00 Total Visit Minutes 44 Visit Number 29 Number of UTILITY SPRAY OPERATOR Visits 0 Evaluation Information Evaluation Date 06/10/20 PT-OP-B Current Condition Start: 06/10/20 14:36 Freq: Status: Active Protocol: Document 06/10/20 14:30 AW (Rec: 06/10/20 15:22 AW [id number]) Current Condition History of Current Condition Onset Date years Current Complaints LBP, BLE pain (left worse than right) History of Current Condition Pt has had three lumbar surgeries. The first was 20 years ago - a laminotomy which provided relief for ~10 years . Second surgery 10 years ago was laminectomy which provided relief for a while. He started to have pain again about a year ago and had TLIF two months ago. He's been trying to take it easy since surgery. He complains he is unable to walk or stand >10 min due to pain which he describes as stiffness. He is unable to bend far enough to comfortably reach his feet, interfering with dressing and other self-care tasks. He also has pain in his hips after sitting more than 10 minutes. When he gets up from resting position, he tends to walk in bent-forward position at first. Pt also reports numbness or dull light touch sensation in bilateral feet which he says is getting better little by little since surgery. Prior Treatments and Tests - April 2020: L3-S1 TLIF, L2 -3 hemilami - Prior PT for back pain Future Testing and Treatments Planned None identified Treatment Goals Patient/Caregiver Goals Pt would like to get back to golf in a few months. Have ROM to be able to don shoes/socks more easily, be able to lift 40 pounds, and generally increase BLE strength. Prior Functional Status Baseline Function- ADL's Independent Baseline Function- Mobility Independent Baseline Function- Gait no AD except in the one week following surgery Baseline Function- Work/School Pt is retired. 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 Needs to use a shoe horn Functional Limitations- Mobility/Gait Antalgic. Pt ambulates with significant R trunk rotation and R lateral lean. Also demonstrates steppage gait R>L for clearance of right foot. Functional Limitations- Recreation/ Unable to participate in golf. Hobbies Functional Limitations- Other Unable to lift more than light grocery bags without pain. PT-OP-C Subjective Start: 06/10/20 14:36 Freq: Status: Active Protocol: Document 09/30/20 12:00 AW (Rec: 09/30/20 12:10 AW [id number]) OP-PT Subjective Patient Comments Patient Comments Noticing more foot numbness since last week. PT-OP-D Balance Start: 06/10/20 14:36 Freq: Status: Active Protocol: Document 06/10/20 14:30 AW (Rec: 06/10/20 17:51 AW [email or web address]) OP-PT Balance Assessment Sitting Balance Static Sitting Balance Ability Good Dynamic Sitting Balance Ability Good Standing Balance Static Standing Balance Ability Fair Dynamic Standing Balance Ability Fair Device Used no AD Standing Balance Comments SLS R and L equal on multiple trials: 8 sec, 6 sec, 8 sec Balance Tests Single Limb Standing Single Limb- Right 8,6,8 Single Limb- Left 8,8,6 Mccann Fall Scale Copyright Permission PT-OP-E Functional Tests Start: 06/10/20 14:36 Freq: Status: Active Protocol: Document 06/10/20 14:30 AW (Rec: 06/10/20 18:01 AW [email or web address]) Functional Tests Single Leg Squat Test Score from 26.5 mat table bilaterally PT-OP-F Manual Assessment Start: 06/10/20 14:36 Freq: Status: Active Protocol: Document 06/10/20 14:30 AW (Rec: 06/10/20 17:51 AW [email or web address]) Manual Assessments Soft Tissue Assessment Soft Tissue Mobility Assessment Significant tone bilateral lumbar paraspinals PT-OP-G Mobility & Gait Start: 06/10/20 14:36 Freq: Status: Active Protocol: Document 06/10/20 14:30 AW (Rec: 06/10/20 17:51 AW [email or web address]) OP Mobility Evaluation Transfers Sit to Stand (+) nikki's sign on multiple observed attempts OP Gait Assessment Gait Gait Assistance Required: Independent Distance (Feet) 200 Assistive Devices Assistive Device None Gait Deviations General Gait Pattern Antalgic,Decreased Stride Length,Decreased Feet Clearance,Lateral Trunk Lean Factors Limiting Gait Function Factors Limiting Gait Function Decreased Activity Tolerance, Decreased Sensation,Decreased Strength,Limited Range of Motion,Pain,Poor Balance Comments Gait Comments Antalgic gait notable for increased trunk rotation to the right and right lateral lean. High steppage gait R>L to compensate for reduced foot clearance. PT-OP-H Neuro Start: 06/10/20 14:36 Freq: Status: Active Protocol: Document 06/10/20 14:30 AW (Rec: 06/10/20 17:51 AW [email or web address]) Sensation Evaluation Gross Sensation Gross Sensation Left LE Impaired,Right LE Impaired Sensation Description Numbness,Tingling Dermatome Impairments L5 Deep Tendon Reflex & Clonus Assessment Deep Tendon Reflex Bilateral Achilles Deep Tendon Reflex 0 Absent Bilateral Patellar Deep Tendon Reflex 2+ Normal PT-OP-J Posture/Palpation/Skin Start: 06/10/20 14:36 Freq: Status: Active Protocol: Document 06/10/20 14:30 AW (Rec: 06/10/20 17:51 AW [email or web address]) Posture Evaluation Comments Posture Comments Swayback with flat lumbar spine. Notable hinge at TL junction 2/2 hardware. PT-OP-K Range of Motion Start: 06/10/20 14:36 Freq: Status: Active Protocol: Document 06/10/20 14:30 AW (Rec: 06/10/20 18:00 AW [email or web address]) Lumbar Spine Range of Motion Lumbar Spine Active Degrees Testing Position Standing Flexion 35 Extension 8 ROM Limitations Soft Tissue Tightness,Pain Comments Side bending with fingertips 14 from the floor bilaterally . Rotation ~25% bilaterally. Hip Goniometric Range of Motion Hip ROM Limitations Comments B hip ROM WNL except IR <15 degrees. PT-OP-L Special Tests Start: 06/10/20 14:36 Freq: Status: Active Protocol: Document 06/10/20 14:30 AW (Rec: 06/10/20 18:00 AW [email or web address]) Special Tests Hip Special Tests Scour Test Test Results right hip positive for pain reproduction PT-OP-M Strength Start: 06/10/20 14:36 Freq: Status: Active Protocol: Document 06/10/20 14:30 AW (Rec: 06/10/20 18:00 AW [email or web address]) Hip Strength Hip Manual Muscle Testing Right Flexion (L2) 4 Good Extension (S1) 3+ Fair+ Abduction 4- Good- External Rotation 4+ Good+ Internal Rotation 4+ Good+ Left Flexion (L2) 4 Good Extension (S1) 3+ Fair+ Abduction 4- Good- External Rotation 4+ Good+ Internal Rotation 4+ Good+ Knee Strength Knee Manual Muscle Testing Right Flexion (S2) 4 Good Extension (L3) 5 Normal Left Flexion (S2) 4 Good Extension (L3) 5 Normal Ankle/Foot Strength Ankle and Foot Manual Muscle Testing Right Dorsiflexion (L4) 4+ Good+ Plantarflexion (S1) 4- Good- Left Dorsiflexion (L4) 4+ Good+ Plantarflexion (S1) 4- Good- Toe Strength Toe Manual Muscle Testing Right Great Toe Extension 4- Good- Comments Left great toe extension 4+/5 PT-OP-Q Treatments Start: 06/10/20 14:36 Freq: Status: Active Protocol: Document 09/30/20 12:00 AW (Rec: 09/30/20 12:10 AW [id number]) Cardio Equipment Recumbent Stepper (Sci-Fit) Duration (Minutes) 8 Resistance 3.0 Seat Position 11 Other upright not available Therapeutic Exercises Supine Exercises bridging Side bilateral Equipment Used yellow band at knees Reps/Minutes 8 x 3 Comments improving tolerance LTR Side bilateral Equipment Used red therapy ball Reps/Minutes 10 Sitting Exercises trunk rotation Sitting Exercise Name trunk rotation Equipment Used pvc Reps/Minutes 3 min Comments hips fixed in sitting; pipe behind back Standing Exercises balance 2 Standing Exercise Name stagger stance, 2 blue foam Reps/Minutes 5 mins Comments focus on weight distribution and shift balance Standing Exercise Name SLS Side bilateral Equipment Used then blue foam Reps/Minutes 5 mins lunges Standing Exercise Name half lunges, with support on grab bar Reps/Minutes 10 x2 Comments progressed to half-kneeling to reach items on floor Manual Therapy Treatment Soft Tissue Mobilization QL Mobilization Type Sustained Pressure,Trigger Point Release Intensity/Depth Moderate Body Position Sidelying Comments improved post-STM Joint Mobilizations L pelvis Joint coxofemoral Grade III Body Position Supine Reps/Duration 3 min Comments long axis distraction PT-OP-R Modalities Start: 06/10/20 14:36 Freq: Status: Active Protocol: Document 08/12/20 12:00 AW (Rec: 08/12/20 12:14 AW [id number]) Hot Pack/Cold Pack Treatment Hot Pack Location lumbar Patient Position Hooklying Treatment Duration (minutes) 15 Patient Tolerance Good Comments end of session PT-OP-T Assessment and Plan Start: 06/10/20 14:36 Freq: Status: Active Protocol: Document 09/30/20 12:00 AW (Rec: 09/30/20 12:13 AW [id number]) Physical Therapy Assessment Goals Five Impairment ROM Short Term Goal (STG) 07/10 pt has been using sock aid for socks and shoe horn for shoes with laces. Booking Clerk Goal (LTG) 07/31 goal met Pt is able to don shoes and socks without shoe horn and without increase in baseline pain level. LTG Duration 3 months - 09/10/20 Four Impairment unable to particpate in recreational activities Short Term Goal (STG) 07/31 pt has not been able to play golf yet Booking Clerk Goal (LTG) Pt will complete 9 holes of golf without increase in baseline pain level 09/09/20: Update goal to Pt will tolerate 30 minutes standing and walking in order to be able to participate in driving range activities LTG Duration 11/10/20 Three Impairment medium risk of chronicity Usp Goal (LTG) Pt will score 3 or less total on STarT Back tool to demonstrate decreased likelihood of chronicity and catastrophization. 09/09/20: Pt scores 5 (improved by one point since eval). LTG Duration 11/10/20 Two Impairment balance Short Term Goal (STG) Pt will improve SLS from table at height of 24 bilaterally to demonstrate improved BLE strength and stabilty STG Duration 6 weeks - 07/22/20 Usp Goal (LTG) Pt will improve SLS from table at height of 22 bilaterally to demonstrate improved BLE strength and stabilty 09/09/20: GOAL PROGRESS Pt able to stand on RLE from 22 height. LLE is challenging but doable from 24, unable at 22 LTG Duration 11/10/20 One Impairment Pt lacks appropriate exercise program Short Term Goal (STG) Pt will be independent with HEP for support of therapy services provided in clinic MET STG Duration 6 weeks - 07/22/20 Usp Goal (LTG) Pt will participate in self- selected aerobic exercise at least twice weekly. LTG Duration 11/10/20 Assessment Summary Assessment Treatment focused on manual therapy for tone reduction and ther ex for strength and functional activity. Pt seems to be plateauing in progress and will likely be ready to transition to HEP in the near future. Reducing frequency of visits at this time. Physical Therapy Plan Frequency and Duration Frequency of Treatment 2x/Week Duration of Treatment 2 months Plan of Care Start Date 09/10/20 Plan of Care End Date 11/10/20 Therapeutic Interventions Therapeutic Interventions Balance Training,Gait Training ,Home Exercise Program,Joint Mobilizations,Manual Therapy, Neuromuscular Re-education, Patient/Caregiver Education, Self-Care/Home Management,Soft Tissue Mobilization,Taping, Therapeutic Activities, Therapeutic Exercises Modalities Cold Pack/Ice Massage,Electric Stimulation,Hot Packs Next Visit Focus/Plan Next Note Type Treatment Note Next Visit Plan single leg strength, stability , consolidate HEP
--- NOTE | 2020-10-02 12:06 | PT.OTN ---
Current Diagnoses Spondylolisthesis, lumbar region (10/02/20) Spinal stenosis, lumbar region without neurogenic claudication (10/02/20) Postlaminectomy syndrome, not elsewhere classified (10/02/20) Difficulty in walking, not elsewhere classified (10/02/20) Abnormal posture (10/02/20) Physical Therapy Treatment Note PT-OP-A Visit Information Start: 06/10/20 14:36 Freq: Status: Active Protocol: Document 10/02/20 11:19 HH (Rec: 10/02/20 12:06 HH [id number]) Out-Patient Physical Therapy Visit Information Visit Information Visit Type Treatment Note Visit Note KX modifier needed. 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 The first was 20 years ago - a laminotomy which provided relief for ~10 years . Second surgery 10 years ago was laminectomy which provided relief for a while. He started to have pain again about a year ago and had TLIF two months ago. He's been trying to take it easy since surgery. He complains he is unable to walk or stand >10 min due to pain which he describes as stiffness. He is unable to bend far enough to comfortably reach his feet, interfering with dressing and other self-care tasks. He also has pain in his hips after sitting more than 10 minutes. When he gets up from resting position, he tends to walk in bent-forward position at first. Pt also reports numbness or dull light touch sensation in bilateral feet which he says is getting better little by little since surgery. Prior Treatments and Tests - April 2020: L3-S1 TLIF, L2 -3 hemilami - Prior PT for back pain Future Testing and Treatments Planned None identified Treatment Goals Patient/Caregiver Goals Pt would like to get back to golf in a few months. Have ROM to be able to don shoes/socks more easily, be able to lift 40 pounds, and generally increase BLE strength. Prior Functional Status Baseline Function- ADL's Independent Baseline Function- Mobility Independent Baseline Function- Gait no AD except in the one week following surgery Baseline Function- Work/School Pt is retired. 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 Needs to use a shoe horn Functional Limitations- Mobility/Gait Antalgic. Pt ambulates with significant R trunk rotation and R lateral lean. Also demonstrates steppage gait R>L for clearance of right foot. Functional Limitations- Recreation/ Unable to participate in golf. Hobbies Functional Limitations- Other Unable to lift more than light grocery bags without pain. PT-OP-C Subjective Start: 06/10/20 14:36 Freq: Status: Active Protocol: Document 10/02/20 11:19 HH (Rec: 10/02/20 12:06 HH [id number]) OP-PT Subjective Patient Comments Patient Comments Qiana been weaning off half of my hydrocodone. I dont feel much difference so far. I take it usually in the evening. Patient Reported Progress Improving PT-OP-D Balance Start: 06/10/20 14:36 Freq: Status: Active Protocol: Document 06/10/20 14:30 AW (Rec: 06/10/20 17:51 AW [email or web address]) OP-PT Balance Assessment Sitting Balance Static Sitting Balance Ability Good Dynamic Sitting Balance Ability Good Standing Balance Static Standing Balance Ability Fair Dynamic Standing Balance Ability Fair Device Used no AD Standing Balance Comments SLS R and L equal on multiple trials: 8 sec, 6 sec, 8 sec Balance Tests Single Limb Standing Single Limb- Right 8,6,8 Single Limb- Left 8,8,6 Mccann Fall Scale Copyright Permission PT-OP-E Functional Tests Start: 06/10/20 14:36 Freq: Status: Active Protocol: Document 06/10/20 14:30 AW (Rec: 06/10/20 18:01 AW [email or web address]) Functional Tests Single Leg Squat Test Score from 26.5 mat table bilaterally PT-OP-F Manual Assessment Start: 06/10/20 14:36 Freq: Status: Active Protocol: Document 06/10/20 14:30 AW (Rec: 06/10/20 17:51 AW [email or web address]) Manual Assessments Soft Tissue Assessment Soft Tissue Mobility Assessment Significant tone bilateral lumbar paraspinals PT-OP-G Mobility & Gait Start: 06/10/20 14:36 Freq: Status: Active Protocol: Document 06/10/20 14:30 AW (Rec: 06/10/20 17:51 AW [email or web address]) OP Mobility Evaluation Transfers Sit to Stand (+) nikki's sign on multiple observed attempts OP Gait Assessment Gait Gait Assistance Required: Independent Distance (Feet) 200 Assistive Devices Assistive Device None Gait Deviations General Gait Pattern Antalgic,Decreased Stride Length,Decreased Feet Clearance,Lateral Trunk Lean Factors Limiting Gait Function Factors Limiting Gait Function Decreased Activity Tolerance, Decreased Sensation,Decreased Strength,Limited Range of Motion,Pain,Poor Balance Comments Gait Comments Antalgic gait notable for increased trunk rotation to the right and right lateral lean. High steppage gait R>L to compensate for reduced foot clearance. PT-OP-H Neuro Start: 06/10/20 14:36 Freq: Status: Active Protocol: Document 06/10/20 14:30 AW (Rec: 06/10/20 17:51 AW [email or web address]) Sensation Evaluation Gross Sensation Gross Sensation Left LE Impaired,Right LE Impaired Sensation Description Numbness,Tingling Dermatome Impairments L5 Deep Tendon Reflex & Clonus Assessment Deep Tendon Reflex Bilateral Achilles Deep Tendon Reflex 0 Absent Bilateral Patellar Deep Tendon Reflex 2+ Normal PT-OP-J Posture/Palpation/Skin Start: 06/10/20 14:36 Freq: Status: Active Protocol: Document 06/10/20 14:30 AW (Rec: 06/10/20 17:51 AW [email or web address]) Posture Evaluation Comments Posture Comments Swayback with flat lumbar spine. Notable hinge at TL junction 2/2 hardware. PT-OP-K Range of Motion Start: 06/10/20 14:36 Freq: Status: Active Protocol: Document 06/10/20 14:30 AW (Rec: 06/10/20 18:00 AW [email or web address]) Lumbar Spine Range of Motion Lumbar Spine Active Degrees Testing Position Standing Flexion 35 Extension 8 ROM Limitations Soft Tissue Tightness,Pain Comments Side bending with fingertips 14 from the floor bilaterally . Rotation ~25% bilaterally. Hip Goniometric Range of Motion Hip ROM Limitations Comments B hip ROM WNL except IR <15 degrees. PT-OP-L Special Tests Start: 06/10/20 14:36 Freq: Status: Active Protocol: Document 06/10/20 14:30 AW (Rec: 06/10/20 18:00 AW [email or web address]) Special Tests Hip Special Tests Scour Test Test Results right hip positive for pain reproduction PT-OP-M Strength Start: 06/10/20 14:36 Freq: Status: Active Protocol: Document 06/10/20 14:30 AW (Rec: 06/10/20 18:00 AW [email or web address]) Hip Strength Hip Manual Muscle Testing Right Flexion (L2) 4 Good Extension (S1) 3+ Fair+ Abduction 4- Good- External Rotation 4+ Good+ Internal Rotation 4+ Good+ Left Flexion (L2) 4 Good Extension (S1) 3+ Fair+ Abduction 4- Good- External Rotation 4+ Good+ Internal Rotation 4+ Good+ Knee Strength Knee Manual Muscle Testing Right Flexion (S2) 4 Good Extension (L3) 5 Normal Left Flexion (S2) 4 Good Extension (L3) 5 Normal Ankle/Foot Strength Ankle and Foot Manual Muscle Testing Right Dorsiflexion (L4) 4+ Good+ Plantarflexion (S1) 4- Good- Left Dorsiflexion (L4) 4+ Good+ Plantarflexion (S1) 4- Good- Toe Strength Toe Manual Muscle Testing Right Great Toe Extension 4- Good- Comments Left great toe extension 4+/5 PT-OP-Q Treatments Start: 06/10/20 14:36 Freq: Status: Active Protocol: Document 10/02/20 11:19 HH (Rec: 10/02/20 12:06 HH [id number]) Cardio Equipment Bicycle (Upright) Duration (Minutes) 8 Resistance 6 Seat Position 5 Other 1.7 miles; no breaks, able to maintain conversation Therapeutic Exercises Supine Exercises bridging Side bilateral Equipment Used yellow band at knees Reps/Minutes 8 x 3 Comments improving tolerance LTR Side bilateral Equipment Used red therapy ball Reps/Minutes 10 Sidelying Exercises hip abd Side bilateral Reps/Minutes 8x2 Standing Exercises lunges Standing Exercise Name half lunges, with support on grab bar Reps/Minutes 10 x2 Comments progressed to half-kneeling to reach items on floor step up Standing Exercise Name step up - lateral Side bilateral Resistance 12 step Equipment Used no rails, SBA for RLE, CGA for LLE Reps/Minutes 10 x 2 squat Reps/Minutes 10 x2 Comments cues on neutral spine, hip extension Manual Therapy Treatment Soft Tissue Mobilization QL Mobilization Type Sustained Pressure,Trigger Point Release Intensity/Depth Moderate Body Position Sidelying Comments improved post-STM Joint Mobilizations L pelvis Joint coxofemoral Grade III Body Position Supine Reps/Duration 3 min Comments long axis distraction PT-OP-R Modalities Start: 06/10/20 14:36 Freq: Status: Active Protocol: Document 08/12/20 12:00 AW (Rec: 08/12/20 12:14 AW [id number]) Hot Pack/Cold Pack Treatment Hot Pack Location lumbar Patient Position Hooklying Treatment Duration (minutes) 15 Patient Tolerance Good Comments end of session PT-OP-T Assessment and Plan Start: 06/10/20 14:36 Freq: Status: Active Protocol: Document 10/02/20 11:19 HH (Rec: 10/02/20 12:06 HH [id number]) Physical Therapy Assessment Goals Five Impairment ROM Short Term Goal (STG) 07/10 pt has been using sock aid for socks and shoe horn for shoes with laces. Shank Archer Goal (LTG) 07/31 goal met Pt is able to don shoes and socks without shoe horn and without increase in baseline pain level. LTG Duration 3 months - 09/10/20 Four Impairment unable to particpate in recreational activities Short Term Goal (STG) 07/31 pt has not been able to play golf yet Assisted Goal (LTG) Pt will complete 9 holes of golf without increase in baseline pain level 09/09/20: Update goal to Pt will tolerate 30 minutes standing and walking in order to be able to participate in driving range activities LTG Duration 11/10/20 Three Impairment medium risk of chronicity Assisted Goal (LTG) Pt will score 3 or less total on STarT Back tool to demonstrate decreased likelihood of chronicity and catastrophization. 09/09/20: Pt scores 5 (improved by one point since eval). LTG Duration 11/10/20 Two Impairment balance Short Term Goal (STG) Pt will improve SLS from table at height of 24 bilaterally to demonstrate improved BLE strength and stabilty STG Duration 6 weeks - 07/22/20 Assisted Goal (LTG) Pt will improve SLS from table at height of 22 bilaterally to demonstrate improved BLE strength and stabilty 09/09/20: GOAL PROGRESS Pt able to stand on RLE from 22 height. LLE is challenging but doable from 24, unable at 22 LTG Duration 11/10/20 One Impairment Pt lacks appropriate exercise program Short Term Goal (STG) Pt will be independent with HEP for support of therapy services provided in clinic MET STG Duration 6 weeks - 07/22/20 Assisted Goal (LTG) Pt will participate in self- selected aerobic exercise at least twice weekly. LTG Duration 11/10/20 Assessment Summary Assessment pt jeri session well today with focus on SL strengthening and balance activity. Physical Therapy Plan Frequency and Duration Frequency of Treatment 2x/Week Duration of Treatment 2 months Plan of Care Start Date 09/10/20 Plan of Care End Date 11/10/20 Therapeutic Interventions Therapeutic Interventions Balance Training,Gait Training ,Home Exercise Program,Joint Mobilizations,Manual Therapy, Neuromuscular Re-education, Patient/Caregiver Education, Self-Care/Home Management,Soft Tissue Mobilization,Taping, Therapeutic Activities, Therapeutic Exercises Modalities Cold Pack/Ice Massage,Electric Stimulation,Hot Packs Next Visit Focus/Plan Next Note Type Treatment Note Next Visit Plan single leg strength, stability , consolidate HEP
--- NOTE | 2020-10-13 12:24 | PT.OTN ---
Current Diagnoses Spondylolisthesis, lumbar region (10/13/20) Spinal stenosis, lumbar region without neurogenic claudication (10/13/20) Postlaminectomy syndrome, not elsewhere classified (10/13/20) Difficulty in walking, not elsewhere classified (10/13/20) Abnormal posture (10/13/20) Physical Therapy Treatment Note PT-OP-A Visit Information Start: 06/10/20 14:36 Freq: Status: Active Protocol: Document 10/13/20 10:34 HH (Rec: 10/13/20 12:24 HH [id number]) Out-Patient Physical Therapy Visit Information Visit Information Visit Type Treatment Note Visit Note KX modifier needed. 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 The first was 20 years ago - a laminotomy which provided relief for ~10 years . Second surgery 10 years ago was laminectomy which provided relief for a while. He started to have pain again about a year ago and had TLIF two months ago. He's been trying to take it easy since surgery. He complains he is unable to walk or stand >10 min due to pain which he describes as stiffness. He is unable to bend far enough to comfortably reach his feet, interfering with dressing and other self-care tasks. He also has pain in his hips after sitting more than 10 minutes. When he gets up from resting position, he tends to walk in bent-forward position at first. Pt also reports numbness or dull light touch sensation in bilateral feet which he says is getting better little by little since surgery. Prior Treatments and Tests - April 2020: L3-S1 TLIF, L2 -3 hemilami - Prior PT for back pain Future Testing and Treatments Planned None identified Treatment Goals Patient/Caregiver Goals Pt would like to get back to golf in a few months. Have ROM to be able to don shoes/socks more easily, be able to lift 40 pounds, and generally increase BLE strength. Prior Functional Status Baseline Function- ADL's Independent Baseline Function- Mobility Independent Baseline Function- Gait no AD except in the one week following surgery Baseline Function- Work/School Pt is retired. 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 Needs to use a shoe horn Functional Limitations- Mobility/Gait Antalgic. Pt ambulates with significant R trunk rotation and R lateral lean. Also demonstrates steppage gait R>L for clearance of right foot. Functional Limitations- Recreation/ Unable to participate in golf. Hobbies Functional Limitations- Other Unable to lift more than light grocery bags without pain. PT-OP-C Subjective Start: 06/10/20 14:36 Freq: Status: Active Protocol: Document 10/13/20 10:34 HH (Rec: 10/13/20 12:24 HH [id number]) OP-PT Subjective Patient Comments Patient Comments Im a little stiff today. My back still gets tired easily.I still get the sharp pain once i sit for too long. Patient Reported Progress Same PT-OP-D Balance Start: 06/10/20 14:36 Freq: Status: Active Protocol: Document 06/10/20 14:30 AW (Rec: 06/10/20 17:51 AW [email or web address]) OP-PT Balance Assessment Sitting Balance Static Sitting Balance Ability Good Dynamic Sitting Balance Ability Good Standing Balance Static Standing Balance Ability Fair Dynamic Standing Balance Ability Fair Device Used no AD Standing Balance Comments SLS R and L equal on multiple trials: 8 sec, 6 sec, 8 sec Balance Tests Single Limb Standing Single Limb- Right 8,6,8 Single Limb- Left 8,8,6 Mccann Fall Scale Copyright Permission PT-OP-E Functional Tests Start: 06/10/20 14:36 Freq: Status: Active Protocol: Document 06/10/20 14:30 AW (Rec: 06/10/20 18:01 AW [email or web address]) Functional Tests Single Leg Squat Test Score from 26.5 mat table bilaterally PT-OP-F Manual Assessment Start: 06/10/20 14:36 Freq: Status: Active Protocol: Document 06/10/20 14:30 AW (Rec: 06/10/20 17:51 AW [email or web address]) Manual Assessments Soft Tissue Assessment Soft Tissue Mobility Assessment Significant tone bilateral lumbar paraspinals PT-OP-G Mobility & Gait Start: 06/10/20 14:36 Freq: Status: Active Protocol: Document 06/10/20 14:30 AW (Rec: 06/10/20 17:51 AW [email or web address]) OP Mobility Evaluation Transfers Sit to Stand (+) nikki's sign on multiple observed attempts OP Gait Assessment Gait Gait Assistance Required: Independent Distance (Feet) 200 Assistive Devices Assistive Device None Gait Deviations General Gait Pattern Antalgic,Decreased Stride Length,Decreased Feet Clearance,Lateral Trunk Lean Factors Limiting Gait Function Factors Limiting Gait Function Decreased Activity Tolerance, Decreased Sensation,Decreased Strength,Limited Range of Motion,Pain,Poor Balance Comments Gait Comments Antalgic gait notable for increased trunk rotation to the right and right lateral lean. High steppage gait R>L to compensate for reduced foot clearance. PT-OP-H Neuro Start: 06/10/20 14:36 Freq: Status: Active Protocol: Document 06/10/20 14:30 AW (Rec: 06/10/20 17:51 AW [email or web address]) Sensation Evaluation Gross Sensation Gross Sensation Left LE Impaired,Right LE Impaired Sensation Description Numbness,Tingling Dermatome Impairments L5 Deep Tendon Reflex & Clonus Assessment Deep Tendon Reflex Bilateral Achilles Deep Tendon Reflex 0 Absent Bilateral Patellar Deep Tendon Reflex 2+ Normal PT-OP-J Posture/Palpation/Skin Start: 06/10/20 14:36 Freq: Status: Active Protocol: Document 06/10/20 14:30 AW (Rec: 06/10/20 17:51 AW [email or web address]) Posture Evaluation Comments Posture Comments Swayback with flat lumbar spine. Notable hinge at TL junction 2/2 hardware. PT-OP-K Range of Motion Start: 06/10/20 14:36 Freq: Status: Active Protocol: Document 06/10/20 14:30 AW (Rec: 06/10/20 18:00 AW [email or web address]) Lumbar Spine Range of Motion Lumbar Spine Active Degrees Testing Position Standing Flexion 35 Extension 8 ROM Limitations Soft Tissue Tightness,Pain Comments Side bending with fingertips 14 from the floor bilaterally . Rotation ~25% bilaterally. Hip Goniometric Range of Motion Hip ROM Limitations Comments B hip ROM WNL except IR <15 degrees. PT-OP-L Special Tests Start: 06/10/20 14:36 Freq: Status: Active Protocol: Document 06/10/20 14:30 AW (Rec: 06/10/20 18:00 AW [email or web address]) Special Tests Hip Special Tests Scour Test Test Results right hip positive for pain reproduction PT-OP-M Strength Start: 06/10/20 14:36 Freq: Status: Active Protocol: Document 06/10/20 14:30 AW (Rec: 06/10/20 18:00 AW [email or web address]) Hip Strength Hip Manual Muscle Testing Right Flexion (L2) 4 Good Extension (S1) 3+ Fair+ Abduction 4- Good- External Rotation 4+ Good+ Internal Rotation 4+ Good+ Left Flexion (L2) 4 Good Extension (S1) 3+ Fair+ Abduction 4- Good- External Rotation 4+ Good+ Internal Rotation 4+ Good+ Knee Strength Knee Manual Muscle Testing Right Flexion (S2) 4 Good Extension (L3) 5 Normal Left Flexion (S2) 4 Good Extension (L3) 5 Normal Ankle/Foot Strength Ankle and Foot Manual Muscle Testing Right Dorsiflexion (L4) 4+ Good+ Plantarflexion (S1) 4- Good- Left Dorsiflexion (L4) 4+ Good+ Plantarflexion (S1) 4- Good- Toe Strength Toe Manual Muscle Testing Right Great Toe Extension 4- Good- Comments Left great toe extension 4+/5 PT-OP-Q Treatments Start: 06/10/20 14:36 Freq: Status: Active Protocol: Document 10/13/20 10:34 HH (Rec: 10/13/20 12:24 HH [id number]) Cardio Equipment Bicycle (Upright) Duration (Minutes) 8 Resistance 6 Seat Position 5 Other 2.42 miles; no breaks, able to maintain conversation Therapeutic Exercises Supine Exercises SLR Side bilateral Reps/Minutes 8 x2 Comments good form, no discomfort bridging Side bilateral Equipment Used yellow band at knees Reps/Minutes 8 x 3 Comments improving tolerance Sidelying Exercises hip abd Side bilateral Reps/Minutes 8x2 Standing Exercises deadlift Standing Exercise Name sumo single arm deadlift Equipment Used 7 lbs DB Reps/Minutes 8x2 Comments DB down to mid mayen balance 2 Standing Exercise Name stagger stance, 2 blue foam Reps/Minutes 5 mins Comments focus on weight distribution and shift balance Standing Exercise Name SLS Side bilateral Equipment Used then blue foam Reps/Minutes 5 mins squat Standing Exercise Name cable, in squat position with scap retraciton Reps/Minutes 10 x2 Comments cues on neutral spine, hip extension hip hinge Equipment Used 7 lbs DB x2 Reps/Minutes 10 x2 Manual Therapy Treatment Soft Tissue Mobilization QL Mobilization Type Sustained Pressure,Trigger Point Release Intensity/Depth Moderate Body Position Sidelying Comments improved post-STM PT-OP-R Modalities Start: 06/10/20 14:36 Freq: Status: Active Protocol: Document 08/12/20 12:00 AW (Rec: 08/12/20 12:14 AW [id number]) Hot Pack/Cold Pack Treatment Hot Pack Location lumbar Patient Position Hooklying Treatment Duration (minutes) 15 Patient Tolerance Good Comments end of session PT-OP-T Assessment and Plan Start: 06/10/20 14:36 Freq: Status: Active Protocol: Document 10/13/20 10:34 HH (Rec: 10/13/20 12:24 HH [id number]) Physical Therapy Assessment Goals Five Impairment ROM Short Term Goal (STG) 07/10 pt has been using sock aid for socks and shoe horn for shoes with laces. Nursing Home Goal (LTG) 07/31 goal met Pt is able to don shoes and socks without shoe horn and without increase in baseline pain level. LTG Duration 3 months - 09/10/20 Four Impairment unable to particpate in recreational activities Short Term Goal (STG) 07/31 pt has not been able to play golf yet Dental Front Office Assistant Goal (LTG) Pt will complete 9 holes of golf without increase in baseline pain level 09/09/20: Update goal to Pt will tolerate 30 minutes standing and walking in order to be able to participate in driving range activities LTG Duration 11/10/20 Three Impairment medium risk of chronicity Nursing Home Goal (LTG) Pt will score 3 or less total on STarT Back tool to demonstrate decreased likelihood of chronicity and catastrophization. 09/09/20: Pt scores 5 (improved by one point since eval). LTG Duration 11/10/20 Two Impairment balance Short Term Goal (STG) Pt will improve SLS from table at height of 24 bilaterally to demonstrate improved BLE strength and stabilty STG Duration 6 weeks - 07/22/20 Dental Front Office Assistant Goal (LTG) Pt will improve SLS from table at height of 22 bilaterally to demonstrate improved BLE strength and stabilty 09/09/20: GOAL PROGRESS Pt able to stand on RLE from 22 height. LLE is challenging but doable from 24, unable at 22 LTG Duration 11/10/20 One Impairment Pt lacks appropriate exercise program Short Term Goal (STG) Pt will be independent with HEP for support of therapy services provided in clinic MET STG Duration 6 weeks - 07/22/20 Nursing Home Goal (LTG) Pt will participate in self- selected aerobic exercise at least twice weekly. LTG Duration 11/10/20 Assessment Summary Assessment pt jeri session well with mostly trunk and LE strengthening. He has no c/o with deadlift from midshin level but tends to round his lumbar below that point. He has good awareness on his lifting mechanics. Physical Therapy Plan Frequency and Duration Frequency of Treatment 2x/Week Duration of Treatment 2 months Plan of Care Start Date 09/10/20 Plan of Care End Date 11/10/20 Therapeutic Interventions Therapeutic Interventions Balance Training,Gait Training ,Home Exercise Program,Joint Mobilizations,Manual Therapy, Neuromuscular Re-education, Patient/Caregiver Education, Self-Care/Home Management,Soft Tissue Mobilization,Taping, Therapeutic Activities, Therapeutic Exercises Modalities Cold Pack/Ice Massage,Electric Stimulation,Hot Packs Next Visit Focus/Plan Next Note Type Treatment Note Next Visit Plan single leg strength, stability , consolidate HEP
--- NOTE | 2020-10-21 12:06 | PT.OTN ---
Current Diagnoses Spondylolisthesis, lumbar region (10/21/20) Spinal stenosis, lumbar region without neurogenic claudication (10/21/20) Postlaminectomy syndrome, not elsewhere classified (10/21/20) Difficulty in walking, not elsewhere classified (10/21/20) Abnormal posture (10/21/20) Physical Therapy Treatment Note PT-OP-A Visit Information Start: 06/10/20 14:36 Freq: Status: Active Protocol: Document 10/21/20 11:17 HH (Rec: 10/21/20 12:06 HH [id number]) Out-Patient Physical Therapy Visit Information Visit Information Visit Type Treatment Note Visit Note KX modifier needed. Visit Start Time 11:17 Visit Stop Time 12:01 Total Visit Minutes 44 Visit Number 32 Number of TRAFFIC CLERK Visits 0 PT-OP-B Current Condition Start: 06/10/20 14:36 Freq: Status: Active Protocol: Document 06/10/20 14:30 AW (Rec: 06/10/20 15:22 AW [id number]) Current Condition History of Current Condition Onset Date years Current Complaints LBP, BLE pain (left worse than right) History of Current Condition Pt has had three lumbar surgeries. The first was 20 years ago - a laminotomy which provided relief for ~10 years . Second surgery 10 years ago was laminectomy which provided relief for a while. He started to have pain again about a year ago and had TLIF two months ago. He's been trying to take it easy since surgery. He complains he is unable to walk or stand >10 min due to pain which he describes as stiffness. He is unable to bend far enough to comfortably reach his feet, interfering with dressing and other self-care tasks. He also has pain in his hips after sitting more than 10 minutes. When he gets up from resting position, he tends to walk in bent-forward position at first. Pt also reports numbness or dull light touch sensation in bilateral feet which he says is getting better little by little since surgery. Prior Treatments and Tests - April 2020: L3-S1 TLIF, L2 -3 hemilami - Prior PT for back pain Future Testing and Treatments Planned None identified Treatment Goals Patient/Caregiver Goals Pt would like to get back to golf in a few months. Have ROM to be able to don shoes/socks more easily, be able to lift 40 pounds, and generally increase BLE strength. Prior Functional Status Baseline Function- ADL's Independent Baseline Function- Mobility Independent Baseline Function- Gait no AD except in the one week following surgery Baseline Function- Work/School Pt is retired. 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 Needs to use a shoe horn Functional Limitations- Mobility/Gait Antalgic. Pt ambulates with significant R trunk rotation and R lateral lean. Also demonstrates steppage gait R>L for clearance of right foot. Functional Limitations- Recreation/ Unable to participate in golf. Hobbies Functional Limitations- Other Unable to lift more than light grocery bags without pain. PT-OP-C Subjective Start: 06/10/20 14:36 Freq: Status: Active Protocol: Document 10/21/20 11:17 HH (Rec: 10/21/20 12:06 HH [id number]) OP-PT Subjective Patient Comments Patient Comments I want to use the leg press machine today. PT-OP-D Balance Start: 06/10/20 14:36 Freq: Status: Active Protocol: Document 06/10/20 14:30 AW (Rec: 06/10/20 17:51 AW [email or web address]) OP-PT Balance Assessment Sitting Balance Static Sitting Balance Ability Good Dynamic Sitting Balance Ability Good Standing Balance Static Standing Balance Ability Fair Dynamic Standing Balance Ability Fair Device Used no AD Standing Balance Comments SLS R and L equal on multiple trials: 8 sec, 6 sec, 8 sec Balance Tests Single Limb Standing Single Limb- Right 8,6,8 Single Limb- Left 8,8,6 Mccann Fall Scale Copyright Permission PT-OP-E Functional Tests Start: 06/10/20 14:36 Freq: Status: Active Protocol: Document 06/10/20 14:30 AW (Rec: 06/10/20 18:01 AW [email or web address]) Functional Tests Single Leg Squat Test Score from 26.5 mat table bilaterally PT-OP-F Manual Assessment Start: 06/10/20 14:36 Freq: Status: Active Protocol: Document 06/10/20 14:30 AW (Rec: 06/10/20 17:51 AW [email or web address]) Manual Assessments Soft Tissue Assessment Soft Tissue Mobility Assessment Significant tone bilateral lumbar paraspinals PT-OP-G Mobility & Gait Start: 06/10/20 14:36 Freq: Status: Active Protocol: Document 06/10/20 14:30 AW (Rec: 06/10/20 17:51 AW [email or web address]) OP Mobility Evaluation Transfers Sit to Stand (+) nikki's sign on multiple observed attempts OP Gait Assessment Gait Gait Assistance Required: Independent Distance (Feet) 200 Assistive Devices Assistive Device None Gait Deviations General Gait Pattern Antalgic,Decreased Stride Length,Decreased Feet Clearance,Lateral Trunk Lean Factors Limiting Gait Function Factors Limiting Gait Function Decreased Activity Tolerance, Decreased Sensation,Decreased Strength,Limited Range of Motion,Pain,Poor Balance Comments Gait Comments Antalgic gait notable for increased trunk rotation to the right and right lateral lean. High steppage gait R>L to compensate for reduced foot clearance. PT-OP-H Neuro Start: 06/10/20 14:36 Freq: Status: Active Protocol: Document 06/10/20 14:30 AW (Rec: 06/10/20 17:51 AW [email or web address]) Sensation Evaluation Gross Sensation Gross Sensation Left LE Impaired,Right LE Impaired Sensation Description Numbness,Tingling Dermatome Impairments L5 Deep Tendon Reflex & Clonus Assessment Deep Tendon Reflex Bilateral Achilles Deep Tendon Reflex 0 Absent Bilateral Patellar Deep Tendon Reflex 2+ Normal PT-OP-J Posture/Palpation/Skin Start: 06/10/20 14:36 Freq: Status: Active Protocol: Document 06/10/20 14:30 AW (Rec: 06/10/20 17:51 AW [email or web address]) Posture Evaluation Comments Posture Comments Swayback with flat lumbar spine. Notable hinge at TL junction 2/2 hardware. PT-OP-K Range of Motion Start: 06/10/20 14:36 Freq: Status: Active Protocol: Document 06/10/20 14:30 AW (Rec: 06/10/20 18:00 AW [email or web address]) Lumbar Spine Range of Motion Lumbar Spine Active Degrees Testing Position Standing Flexion 35 Extension 8 ROM Limitations Soft Tissue Tightness,Pain Comments Side bending with fingertips 14 from the floor bilaterally . Rotation ~25% bilaterally. Hip Goniometric Range of Motion Hip ROM Limitations Comments B hip ROM WNL except IR <15 degrees. PT-OP-L Special Tests Start: 06/10/20 14:36 Freq: Status: Active Protocol: Document 06/10/20 14:30 AW (Rec: 06/10/20 18:00 AW [email or web address]) Special Tests Hip Special Tests Scour Test Test Results right hip positive for pain reproduction PT-OP-M Strength Start: 06/10/20 14:36 Freq: Status: Active Protocol: Document 06/10/20 14:30 AW (Rec: 06/10/20 18:00 AW [email or web address]) Hip Strength Hip Manual Muscle Testing Right Flexion (L2) 4 Good Extension (S1) 3+ Fair+ Abduction 4- Good- External Rotation 4+ Good+ Internal Rotation 4+ Good+ Left Flexion (L2) 4 Good Extension (S1) 3+ Fair+ Abduction 4- Good- External Rotation 4+ Good+ Internal Rotation 4+ Good+ Knee Strength Knee Manual Muscle Testing Right Flexion (S2) 4 Good Extension (L3) 5 Normal Left Flexion (S2) 4 Good Extension (L3) 5 Normal Ankle/Foot Strength Ankle and Foot Manual Muscle Testing Right Dorsiflexion (L4) 4+ Good+ Plantarflexion (S1) 4- Good- Left Dorsiflexion (L4) 4+ Good+ Plantarflexion (S1) 4- Good- Toe Strength Toe Manual Muscle Testing Right Great Toe Extension 4- Good- Comments Left great toe extension 4+/5 PT-OP-Q Treatments Start: 06/10/20 14:36 Freq: Status: Active Protocol: Document 10/21/20 11:17 HH (Rec: 10/21/20 12:06 HH [id number]) Cardio Equipment Elliptical Duration (Minutes) 4 Resistance 4 Other pt was SOB and fatigue on quads. Gym Equipment Shuttle Recovery SL squat Resistance #75 Shuttle Recovery Platform Stable Reps/Time 12 x 3 Therapeutic Exercises Supine Exercises SLR Side bilateral Reps/Minutes 8 x2 Comments good form, no discomfort bridging Side bilateral Equipment Used yellow band at knees Reps/Minutes 8 x 3 Comments improving tolerance Sidelying Exercises hip abd Side bilateral Reps/Minutes 8x2 Comments fatigue at the end of the set Standing Exercises calf raises Comments for HEP squat Comments for HEP Manual Therapy Treatment Soft Tissue Mobilization QL Mobilization Type Sustained Pressure,Trigger Point Release Intensity/Depth Moderate Body Position Sidelying Comments improved post-STM PT-OP-R Modalities Start: 06/10/20 14:36 Freq: Status: Active Protocol: Document 08/12/20 12:00 AW (Rec: 08/12/20 12:14 AW [id number]) Hot Pack/Cold Pack Treatment Hot Pack Location lumbar Patient Position Hooklying Treatment Duration (minutes) 15 Patient Tolerance Good Comments end of session PT-OP-T Assessment and Plan Start: 06/10/20 14:36 Freq: Status: Active Protocol: Document 10/21/20 11:17 HH (Rec: 10/21/20 12:06 HH [id number]) Physical Therapy Assessment Goals Five Impairment ROM Short Term Goal (STG) 07/10 pt has been using sock aid for socks and shoe horn for shoes with laces. Nursing Home Goal (LTG) 07/31 goal met Pt is able to don shoes and socks without shoe horn and without increase in baseline pain level. LTG Duration 3 months - 09/10/20 Four Impairment unable to particpate in recreational activities Short Term Goal (STG) 07/31 pt has not been able to play golf yet Seam Taper Machine Goal (LTG) Pt will complete 9 holes of golf without increase in baseline pain level 09/09/20: Update goal to Pt will tolerate 30 minutes standing and walking in order to be able to participate in driving range activities LTG Duration 11/10/20 Three Impairment medium risk of chronicity Seam Taper Machine Goal (LTG) Pt will score 3 or less total on STarT Back tool to demonstrate decreased likelihood of chronicity and catastrophization. 09/09/20: Pt scores 5 (improved by one point since eval). LTG Duration 11/10/20 Two Impairment balance Short Term Goal (STG) Pt will improve SLS from table at height of 24 bilaterally to demonstrate improved BLE strength and stabilty STG Duration 6 weeks - 07/22/20 Nursing Home Goal (LTG) Pt will improve SLS from table at height of 22 bilaterally to demonstrate improved BLE strength and stabilty 09/09/20: GOAL PROGRESS Pt able to stand on RLE from 22 height. LLE is challenging but doable from 24, unable at 22 LTG Duration 11/10/20 One Impairment Pt lacks appropriate exercise program Short Term Goal (STG) Pt will be independent with [facility] for support of therapy services provided in clinic MET STG Duration 6 weeks - 07/22/20 Seam Taper Machine Goal (LTG) Pt will participate in self- selected aerobic exercise at least twice weekly. LTG Duration 11/10/20 Assessment Summary Assessment Increase activity level today by adding eliptical, hip abd and SL squat on leg press machine. Pt jeri well and provided him a consolidated HEP with focus on low impact strengthening ex 3 times a week for 20 mins + daily walking. will assess his tolerance next visit. Physical Therapy Plan Frequency and Duration Frequency of Treatment 2x/Week Duration of Treatment 2 months Plan of Care Start Date 09/10/20 Plan of Care End Date 11/10/20 Therapeutic Interventions Therapeutic Interventions Balance Training,Gait Training ,Home Exercise Program,Joint Mobilizations,Manual Therapy, Neuromuscular Re-education, Patient/Caregiver Education, Self-Care/Home Management,Soft Tissue Mobilization,Taping, Therapeutic Activities, Therapeutic Exercises Modalities Cold Pack/Ice Massage,Electric Stimulation,Hot Packs Next Visit Focus/Plan Next Note Type Treatment Note Next Visit Plan single leg strength, stability , consolidate HEP
--- NOTE | 2020-10-28 12:08 | PT.OTN ---
Current Diagnoses Spondylolisthesis, lumbar region (10/28/20) Spinal stenosis, lumbar region without neurogenic claudication (10/28/20) Postlaminectomy syndrome, not elsewhere classified (10/28/20) Difficulty in walking, not elsewhere classified (10/28/20) Abnormal posture (10/28/20) Physical Therapy Treatment Note PT-OP-A Visit Information Start: 06/10/20 14:36 Freq: Status: Active Protocol: Document 10/28/20 11:17 HH (Rec: 10/28/20 12:08 HH [id number]) Out-Patient Physical Therapy Visit Information Visit Information Visit Type Treatment Note Visit Note KX modifier needed. Visit Start Time 11:16 Visit Stop Time 12:01 Total Visit Minutes 45 Visit Number 33 Number of SENIOR CONTROLS ANALYST Visits 0 PT-OP-B Current Condition Start: 06/10/20 14:36 Freq: Status: Active Protocol: Document 06/10/20 14:30 AW (Rec: 06/10/20 15:22 AW [id number]) Current Condition History of Current Condition Onset Date years Current Complaints LBP, BLE pain (left worse than right) History of Current Condition Pt has had three lumbar surgeries. The first was 20 years ago - a laminotomy which provided relief for ~10 years . Second surgery 10 years ago was laminectomy which provided relief for a while. He started to have pain again about a year ago and had TLIF two months ago. He's been trying to take it easy since surgery. He complains he is unable to walk or stand >10 min due to pain which he describes as stiffness. He is unable to bend far enough to comfortably reach his feet, interfering with dressing and other self-care tasks. He also has pain in his hips after sitting more than 10 minutes. When he gets up from resting position, he tends to walk in bent-forward position at first. Pt also reports numbness or dull light touch sensation in bilateral feet which he says is getting better little by little since surgery. Prior Treatments and Tests - April 2020: L3-S1 TLIF, L2 -3 hemilami - Prior PT for back pain Future Testing and Treatments Planned None identified Treatment Goals Patient/Caregiver Goals Pt would like to get back to golf in a few months. Have ROM to be able to don shoes/socks more easily, be able to lift 40 pounds, and generally increase BLE strength. Prior Functional Status Baseline Function- ADL's Independent Baseline Function- Mobility Independent Baseline Function- Gait no AD except in the one week following surgery Baseline Function- Work/School Pt is retired. 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 Needs to use a shoe horn Functional Limitations- Mobility/Gait Antalgic. Pt ambulates with significant R trunk rotation and R lateral lean. Also demonstrates steppage gait R>L for clearance of right foot. Functional Limitations- Recreation/ Unable to participate in golf. Hobbies Functional Limitations- Other Unable to lift more than light grocery bags without pain. PT-OP-C Subjective Start: 06/10/20 14:36 Freq: Status: Active Protocol: Document 10/28/20 11:17 HH (Rec: 10/28/20 12:08 HH [id number]) OP-PT Subjective Patient Comments Patient Comments the past week hsa been up and down. Sometimes is good and sometimes is more sore. I only take hydrocodone as needed. PT-OP-D Balance Start: 06/10/20 14:36 Freq: Status: Active Protocol: Document 06/10/20 14:30 AW (Rec: 06/10/20 17:51 AW [email or web address]) OP-PT Balance Assessment Sitting Balance Static Sitting Balance Ability Good Dynamic Sitting Balance Ability Good Standing Balance Static Standing Balance Ability Fair Dynamic Standing Balance Ability Fair Device Used no AD Standing Balance Comments SLS R and L equal on multiple trials: 8 sec, 6 sec, 8 sec Balance Tests Single Limb Standing Single Limb- Right 8,6,8 Single Limb- Left 8,8,6 Mccann Fall Scale Copyright Permission PT-OP-E Functional Tests Start: 06/10/20 14:36 Freq: Status: Active Protocol: Document 06/10/20 14:30 AW (Rec: 06/10/20 18:01 AW [email or web address]) Functional Tests Single Leg Squat Test Score from 26.5 mat table bilaterally PT-OP-F Manual Assessment Start: 06/10/20 14:36 Freq: Status: Active Protocol: Document 06/10/20 14:30 AW (Rec: 03/10/21 17:51 AW [email or web address]) Manual Assessments Soft Tissue Assessment Soft Tissue Mobility Assessment Significant tone bilateral lumbar paraspinals PT-OP-G Mobility & Gait Start: 06/10/20 14:36 Freq: Status: Active Protocol: Document 06/10/20 14:30 AW (Rec: 06/10/20 17:51 AW [email or web address]) OP Mobility Evaluation Transfers Sit to Stand (+) nikki's sign on multiple observed attempts OP Gait Assessment Gait Gait Assistance Required: Independent Distance (Feet) 200 Assistive Devices Assistive Device None Gait Deviations General Gait Pattern Antalgic,Decreased Stride Length,Decreased Feet Clearance,Lateral Trunk Lean Factors Limiting Gait Function Factors Limiting Gait Function Decreased Activity Tolerance, Decreased Sensation,Decreased Strength,Limited Range of Motion,Pain,Poor Balance Comments Gait Comments Antalgic gait notable for increased trunk rotation to the right and right lateral lean. High steppage gait R>L to compensate for reduced foot clearance. PT-OP-H Neuro Start: 06/10/20 14:36 Freq: Status: Active Protocol: Document 06/10/20 14:30 AW (Rec: 06/10/20 17:51 AW [email or web address]) Sensation Evaluation Gross Sensation Gross Sensation Left LE Impaired,Right LE Impaired Sensation Description Numbness,Tingling Dermatome Impairments L5 Deep Tendon Reflex & Clonus Assessment Deep Tendon Reflex Bilateral Achilles Deep Tendon Reflex 0 Absent Bilateral Patellar Deep Tendon Reflex 2+ Normal PT-OP-J Posture/Palpation/Skin Start: 06/10/20 14:36 Freq: Status: Active Protocol: Document 06/10/20 14:30 AW (Rec: 06/10/20 17:51 AW [email or web address]) Posture Evaluation Comments Posture Comments Swayback with flat lumbar spine. Notable hinge at TL junction 2/2 hardware. PT-OP-K Range of Motion Start: 06/10/20 14:36 Freq: Status: Active Protocol: Document 06/10/20 14:30 AW (Rec: 06/10/20 18:00 AW [email or web address]) Lumbar Spine Range of Motion Lumbar Spine Active Degrees Testing Position Standing Flexion 35 Extension 8 ROM Limitations Soft Tissue Tightness,Pain Comments Side bending with fingertips 14 from the floor bilaterally . Rotation ~25% bilaterally. Hip Goniometric Range of Motion Hip ROM Limitations Comments B hip ROM WNL except IR <15 degrees. PT-OP-L Special Tests Start: 06/10/20 14:36 Freq: Status: Active Protocol: Document 06/10/20 14:30 AW (Rec: 06/10/20 18:00 AW [email or web address]) Special Tests Hip Special Tests Scour Test Test Results right hip positive for pain reproduction PT-OP-M Strength Start: 06/10/20 14:36 Freq: Status: Active Protocol: Document 06/10/20 14:30 AW (Rec: 06/10/20 18:00 AW [email or web address]) Hip Strength Hip Manual Muscle Testing Right Flexion (L2) 4 Good Extension (S1) 3+ Fair+ Abduction 4- Good- External Rotation 4+ Good+ Internal Rotation 4+ Good+ Left Flexion (L2) 4 Good Extension (S1) 3+ Fair+ Abduction 4- Good- External Rotation 4+ Good+ Internal Rotation 4+ Good+ Knee Strength Knee Manual Muscle Testing Right Flexion (S2) 4 Good Extension (L3) 5 Normal Left Flexion (S2) 4 Good Extension (L3) 5 Normal Ankle/Foot Strength Ankle and Foot Manual Muscle Testing Right Dorsiflexion (L4) 4+ Good+ Plantarflexion (S1) 4- Good- Left Dorsiflexion (L4) 4+ Good+ Plantarflexion (S1) 4- Good- Toe Strength Toe Manual Muscle Testing Right Great Toe Extension 4- Good- Comments Left great toe extension 4+/5 PT-OP-Q Treatments Start: 06/10/20 14:36 Freq: Status: Active Protocol: Document 10/28/20 11:17 HH (Rec: 10/28/20 12:08 HH [id number]) Cardio Equipment Elliptical Duration (Minutes) 5 Resistance 4 Other pt was SOB and fatigue on quads. Gym Equipment Shuttle Recovery SL squat Resistance #75 Shuttle Recovery Platform Stable Reps/Time 12 x 3 Therapeutic Exercises Supine Exercises bridging Side bilateral Equipment Used yellow band at knees Reps/Minutes 8 x 3 Comments improving tolerance Standing Exercises bend over row Equipment Used 10 lbs DB Reps/Minutes 10 x2 step up Standing Exercise Name step up - lateral Side bilateral Resistance 12 step Equipment Used no rails, SBA for RLE, CGA for LLE Reps/Minutes 10 x 2 hip hinge Equipment Used 7 lbs DB x2 Reps/Minutes 10 x2 PT-OP-R Modalities Start: 06/10/20 14:36 Freq: Status: Active Protocol: Document 08/12/20 12:00 AW (Rec: 08/12/20 12:14 AW [id number]) Hot Pack/Cold Pack Treatment Hot Pack Location lumbar Patient Position Hooklying Treatment Duration (minutes) 15 Patient Tolerance Good Comments end of session PT-OP-T Assessment and Plan Start: 06/10/20 14:36 Freq: Status: Active Protocol: Document 10/28/20 11:17 HH (Rec: 10/28/20 12:08 HH [id number]) Physical Therapy Assessment Goals Five Impairment ROM Short Term Goal (STG) 07/10 pt has been using sock aid for socks and shoe horn for shoes with laces. Certified Medical Technician Goal (LTG) 07/31 goal met Pt is able to don shoes and socks without shoe horn and without increase in baseline pain level. LTG Duration 3 months - 09/10/20 Four Impairment unable to particpate in recreational activities Short Term Goal (STG) 07/31 pt has not been able to play golf yet [facility] Goal (LTG) Pt will complete 9 holes of golf without increase in baseline pain level 09/09/20: Update goal to Pt will tolerate 30 minutes standing and walking in order to be able to participate in driving range activities LTG Duration 11/10/20 Three Impairment medium risk of chronicity [facility] Goal (LTG) Pt will score 3 or less total on STarT Back tool to demonstrate decreased likelihood of chronicity and catastrophization. 09/09/20: Pt scores 5 (improved by one point since eval). LTG Duration 11/10/20 Two Impairment balance Short Term Goal (STG) Pt will improve SLS from table at height of 24 bilaterally to demonstrate improved BLE strength and stabilty STG Duration 6 weeks - 07/22/20 Certified Medical Technician Goal (LTG) Pt will improve SLS from table at height of 22 bilaterally to demonstrate improved BLE strength and stabilty 09/09/20: GOAL PROGRESS Pt able to stand on RLE from 22 height. LLE is challenging but doable from 24, unable at 22 LTG Duration 11/10/20 One Impairment Pt lacks appropriate exercise program Short Term Goal (STG) Pt will be independent with [facility] for support of therapy services provided in clinic MET STG Duration 6 weeks - 07/22/20 Certified Medical Technician Goal (LTG) Pt will participate in self- selected aerobic exercise at least twice weekly. LTG Duration 11/10/20 Assessment Summary Assessment pt will have f/u with surgeon in mid-november to further discuss his ongoing back pain and numbness/tingling sensation on his feet. I recommended pt to request imaging screening if possible to rule out other possible pathology. I also have him schedule one more visit after his f/u with surgeon to assess his overall progress. Physical Therapy Plan Frequency and Duration Frequency of Treatment 2x/Week Duration of Treatment 2 months Plan of Care Start Date 09/10/20 Plan of Care End Date 11/10/20 Therapeutic Interventions Therapeutic Interventions Balance Training,Gait Training ,Home Exercise Program,Joint Mobilizations,Manual Therapy, Neuromuscular Re-education, Patient/Caregiver Education, Self-Care/Home Management,Soft Tissue Mobilization,Taping, Therapeutic Activities, Therapeutic Exercises Modalities Cold Pack/Ice Massage,Electric Stimulation,Hot Packs Next Visit Focus/Plan Next Note Type Treatment Note Next Visit Plan single leg strength, stability , consolidate HEP
--- NOTE | 2020-11-04 12:09 | PT.OTN ---
Current Diagnoses Spondylolisthesis, lumbar region (11/04/20) Spinal stenosis, lumbar region without neurogenic claudication (11/04/20) Postlaminectomy syndrome, not elsewhere classified (11/04/20) Difficulty in walking, not elsewhere classified (11/04/20) Abnormal posture (11/04/20) Physical Therapy Treatment Note PT-OP-A Visit Information Start: 06/10/20 14:36 Freq: Status: Active Protocol: Document 11/04/20 12:00 AW (Rec: 11/04/20 12:03 AW [id number]) Out-Patient Physical Therapy Visit Information Visit Information Visit Type Treatment Note Visit Start Time 11:15 Visit Stop Time 12:00 Total Visit Minutes 45 Visit Number 34 Number of CARDIAC TECHNOLOGIST Visits 0 PT-OP-B Current Condition Start: 06/10/20 14:36 Freq: Status: Active Protocol: Document 06/10/20 14:30 AW (Rec: 06/10/20 15:22 AW [id number]) Current Condition History of Current Condition Onset Date years Current Complaints LBP, BLE pain (left worse than right) History of Current Condition Pt has had three lumbar surgeries. The first was 20 years ago - a laminotomy which provided relief for ~10 years . Second surgery 10 years ago was laminectomy which provided relief for a while. He started to have pain again about a year ago and had TLIF two months ago. He's been trying to take it easy since surgery. He complains he is unable to walk or stand >10 min due to pain which he describes as stiffness. He is unable to bend far enough to comfortably reach his feet, interfering with dressing and other self-care tasks. He also has pain in his hips after sitting more than 10 minutes. When he gets up from resting position, he tends to walk in bent-forward position at first. Pt also reports numbness or dull light touch sensation in bilateral feet which he says is getting better little by little since surgery. Prior Treatments and Tests - April 2020: L3-S1 TLIF, L2 -3 hemilami - Prior PT for back pain Future Testing and Treatments Planned None identified Treatment Goals Patient/Caregiver Goals Pt would like to get back to golf in a few months. Have ROM to be able to don shoes/socks more easily, be able to lift 40 pounds, and generally increase BLE strength. Prior Functional Status Baseline Function- ADL's Independent Baseline Function- Mobility Independent Baseline Function- Gait no AD except in the one week following surgery Baseline Function- Work/School Pt is retired. 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 Needs to use a shoe horn Functional Limitations- Mobility/Gait Antalgic. Pt ambulates with significant R trunk rotation and R lateral lean. Also demonstrates steppage gait R>L for clearance of right foot. Functional Limitations- Recreation/ Unable to participate in golf. Hobbies Functional Limitations- Other Unable to lift more than light grocery bags without pain. PT-OP-C Subjective Start: 06/10/20 14:36 Freq: Status: Active Protocol: Document 11/04/20 12:00 AW (Rec: 11/04/20 12:03 AW [id number]) OP-PT Subjective Patient Comments Patient Comments I did about 20 minutes of chipping at the driving range on Monday and I got sore a day later. Still sore. PT-OP-D Balance Start: 06/10/20 14:36 Freq: Status: Active Protocol: Document 06/10/20 14:30 AW (Rec: 06/10/20 17:51 AW [email or web address]) OP-PT Balance Assessment Sitting Balance Static Sitting Balance Ability Good Dynamic Sitting Balance Ability Good Standing Balance Static Standing Balance Ability Fair Dynamic Standing Balance Ability Fair Device Used no AD Standing Balance Comments SLS R and L equal on multiple trials: 8 sec, 6 sec, 8 sec Balance Tests Single Limb Standing Single Limb- Right 8,6,8 Single Limb- Left 8,8,6 Mccann Fall Scale Copyright Permission PT-OP-E Functional Tests Start: 06/10/20 14:36 Freq: Status: Active Protocol: Document 06/10/20 14:30 AW (Rec: 06/10/20 18:01 AW [email or web address]) Functional Tests Single Leg Squat Test Score from 26.5 mat table bilaterally PT-OP-F Manual Assessment Start: 06/10/20 14:36 Freq: Status: Active Protocol: Document 06/10/20 14:30 AW (Rec: 06/10/20 17:51 AW [email or web address]) Manual Assessments Soft Tissue Assessment Soft Tissue Mobility Assessment Significant tone bilateral lumbar paraspinals PT-OP-G Mobility & Gait Start: 06/10/20 14:36 Freq: Status: Active Protocol: Document 06/10/20 14:30 AW (Rec: 06/10/20 17:51 AW [email or web address]) OP Mobility Evaluation Transfers Sit to Stand (+) nikki's sign on multiple observed attempts OP Gait Assessment Gait Gait Assistance Required: Independent Distance (Feet) 200 Assistive Devices Assistive Device None Gait Deviations General Gait Pattern Antalgic,Decreased Stride Length,Decreased Feet Clearance,Lateral Trunk Lean Factors Limiting Gait Function Factors Limiting Gait Function Decreased Activity Tolerance, Decreased Sensation,Decreased Strength,Limited Range of Motion,Pain,Poor Balance Comments Gait Comments Antalgic gait notable for increased trunk rotation to the right and right lateral lean. High steppage gait R>L to compensate for reduced foot clearance. PT-OP-H Neuro Start: 06/10/20 14:36 Freq: Status: Active Protocol: Document 06/10/20 14:30 AW (Rec: 06/10/20 17:51 AW [email or web address]) Sensation Evaluation Gross Sensation Gross Sensation Left LE Impaired,Right LE Impaired Sensation Description Numbness,Tingling Dermatome Impairments L5 Deep Tendon Reflex & Clonus Assessment Deep Tendon Reflex Bilateral Achilles Deep Tendon Reflex 0 Absent Bilateral Patellar Deep Tendon Reflex 2+ Normal PT-OP-J Posture/Palpation/Skin Start: 06/10/20 14:36 Freq: Status: Active Protocol: Document 06/10/20 14:30 AW (Rec: 06/10/20 17:51 AW [email or web address]) Posture Evaluation Comments Posture Comments Swayback with flat lumbar spine. Notable hinge at TL junction 2/2 hardware. PT-OP-K Range of Motion Start: 06/10/20 14:36 Freq: Status: Active Protocol: Document 06/10/20 14:30 AW (Rec: 06/10/20 18:00 AW [email or web address]) Lumbar Spine Range of Motion Lumbar Spine Active Degrees Testing Position Standing Flexion 35 Extension 8 ROM Limitations Soft Tissue Tightness,Pain Comments Side bending with fingertips 14 from the floor bilaterally . Rotation ~25% bilaterally. Hip Goniometric Range of Motion Hip ROM Limitations Comments B hip ROM WNL except IR <15 degrees. PT-OP-L Special Tests Start: 06/10/20 14:36 Freq: Status: Active Protocol: Document 06/10/20 14:30 AW (Rec: 06/10/20 18:00 AW [email or web address]) Special Tests Hip Special Tests Scour Test Test Results right hip positive for pain reproduction PT-OP-M Strength Start: 06/10/20 14:36 Freq: Status: Active Protocol: Document 06/10/20 14:30 AW (Rec: 06/10/20 18:00 AW [email or web address]) Hip Strength Hip Manual Muscle Testing Right Flexion (L2) 4 Good Extension (S1) 3+ Fair+ Abduction 4- Good- External Rotation 4+ Good+ Internal Rotation 4+ Good+ Left Flexion (L2) 4 Good Extension (S1) 3+ Fair+ Abduction 4- Good- External Rotation 4+ Good+ Internal Rotation 4+ Good+ Knee Strength Knee Manual Muscle Testing Right Flexion (S2) 4 Good Extension (L3) 5 Normal Left Flexion (S2) 4 Good Extension (L3) 5 Normal Ankle/Foot Strength Ankle and Foot Manual Muscle Testing Right Dorsiflexion (L4) 4+ Good+ Plantarflexion (S1) 4- Good- Left Dorsiflexion (L4) 4+ Good+ Plantarflexion (S1) 4- Good- Toe Strength Toe Manual Muscle Testing Right Great Toe Extension 4- Good- Comments Left great toe extension 4+/5 PT-OP-Q Treatments Start: 06/10/20 14:36 Freq: Status: Active Protocol: Document 11/04/20 12:00 AW (Rec: 11/04/20 12:03 AW [id number]) Cardio Equipment Elliptical Duration (Minutes) 5 Resistance 4 Other pt was SOB and fatigue on quads. Therapeutic Exercises Supine Exercises SLR Side bilateral Reps/Minutes 8 x2 Comments good form, no discomfort deadbug Supine Exercise Name isometric - squeeze arms and legs together Equipment Used with red therapy ball Reps/Minutes 10 sec hold x5 Comments cues for flat back bridging Side bilateral Equipment Used yellow band at knees Reps/Minutes 8 x 3 Comments improving tolerance LTR Side bilateral Equipment Used red therapy ball Reps/Minutes 10 Sidelying Exercises hip abd Side bilateral Reps/Minutes 8x2 Comments fatigue at the end of the set Standing Exercises bend over row Equipment Used 10 lbs DB Reps/Minutes 10 x2 step up Standing Exercise Name step up - fwd Side bilateral Resistance 12 step Equipment Used no rails, SBA BLE Reps/Minutes 10 x 2 hip hinge Standing Exercise Name SLDL Equipment Used 7 lbs DB x2 Reps/Minutes 10 x2 PT-OP-R Modalities Start: 06/10/20 14:36 Freq: Status: Active Protocol: Document 08/12/20 12:00 AW (Rec: 08/12/20 12:14 AW [id number]) Hot Pack/Cold Pack Treatment Hot Pack Location lumbar Patient Position Hooklying Treatment Duration (minutes) 15 Patient Tolerance Good Comments end of session PT-OP-T Assessment and Plan Start: 06/10/20 14:36 Freq: Status: Active Protocol: Document 11/04/20 12:00 AW (Rec: 11/04/20 12:09 AW [email or web address]) Physical Therapy Assessment Goals Five Impairment ROM Short Term Goal (STG) 07/10 pt has been using sock aid for socks and shoe horn for shoes with laces. Rug Cutter Goal (LTG) 07/31 goal met Pt is able to don shoes and socks without shoe horn and without increase in baseline pain level. LTG Duration 3 months - 09/10/20 Four Impairment unable to particpate in recreational activities Short Term Goal (STG) 07/31 pt has not been able to play golf yet Rug Cutter Goal (LTG) Pt will complete 9 holes of golf without increase in baseline pain level 09/09/20: Update goal to Pt will tolerate 30 minutes standing and walking in order to be able to participate in driving range activities LTG Duration 11/10/20 Three Impairment medium risk of chronicity Rug Cutter Goal (LTG) Pt will score 3 or less total on STarT Back tool to demonstrate decreased likelihood of chronicity and catastrophization. 09/09/20: Pt scores 5 (improved by one point since eval). LTG Duration 11/10/20 Two Impairment balance Short Term Goal (STG) Pt will improve SLS from table at height of 24 bilaterally to demonstrate improved BLE strength and stabilty STG Duration 6 weeks - 07/22/20 Rug Cutter Goal (LTG) Pt will improve SLS from table at height of 22 bilaterally to demonstrate improved BLE strength and stabilty 09/09/20: GOAL PROGRESS Pt able to stand on RLE from 22 height. LLE is challenging but doable from 24, unable at 22 LTG Duration 11/10/20 One Impairment Pt lacks appropriate exercise program Short Term Goal (STG) Pt will be independent with HEP for support of therapy services provided in clinic [facility] STG Duration 6 weeks - 07/22/20 [facility] Goal (LTG) Pt will participate in self- selected aerobic exercise at least twice weekly. LTG Duration 11/10/20 Assessment Summary Assessment Pt tolerated elliptical, trunk and LE strengthening with emphasis on core stability. He is now able to participate in driving range activities in a limited fashion but reports increased back pain next few days. Plan to follow up with pt after next ortho visit. Physical Therapy Plan Frequency and Duration Frequency of Treatment 2x/Week Duration of Treatment 2 months Plan of Care Start Date 09/10/20 Plan of Care End Date 11/10/20 Therapeutic Interventions Therapeutic Interventions Balance Training,Gait Training ,Home Exercise Program,Joint Mobilizations,Manual Therapy, Neuromuscular Re-education, Patient/Caregiver Education, Self-Care/Home Management,Soft Tissue Mobilization,Taping, Therapeutic Activities, Therapeutic Exercises Modalities Cold Pack/Ice Massage,Electric Stimulation,Hot Packs Next Visit Focus/Plan Next Note Type Treatment Note Next Visit Plan single leg strength, stability , consolidate HEP
--- NOTE | 2020-11-10 16:43 | PT.OTN ---
Current Diagnoses Spondylolisthesis, lumbar region (11/04/20) Spinal stenosis, lumbar region without neurogenic claudication (11/04/20) Postlaminectomy syndrome, not elsewhere classified (11/04/20) Difficulty in walking, not elsewhere classified (11/04/20) Abnormal posture (11/04/20) Physical Therapy Treatment Note PT-OP-A Visit Information Start: 06/10/20 14:36 Freq: Status: Active Protocol: Document 11/10/20 13:45 AW (Rec: 11/10/20 13:46 AW [id number]) Out-Patient Physical Therapy Visit Information Visit Information Visit Type Treatment Note Visit Start Time 13:00 Visit Stop Time 13:59 Total Visit Minutes 59 Visit Number 35 Number of PIPELINE TECHNICIAN Visits 0 PT-OP-B Current Condition Start: 06/10/20 14:36 Freq: Status: Active Protocol: Document 06/10/20 14:30 AW (Rec: 06/10/20 15:22 AW [id number]) Current Condition History of Current Condition Onset Date years Current Complaints LBP, BLE pain (left worse than right) History of Current Condition Pt has had three lumbar surgeries. The first was 20 years ago - a laminotomy which provided relief for ~10 years . Second surgery 10 years ago was laminectomy which provided relief for a while. He started to have pain again about a year ago and had TLIF two months ago. He's been trying to take it easy since surgery. He complains he is unable to walk or stand >10 min due to pain which he describes as stiffness. He is unable to bend far enough to comfortably reach his feet, interfering with dressing and other self-care tasks. He also has pain in his hips after sitting more than 10 minutes. When he gets up from resting position, he tends to walk in bent-forward position at first. Pt also reports numbness or dull light touch sensation in bilateral feet which he says is getting better little by little since surgery. Prior Treatments and Tests - April 2020: L3-S1 TLIF, L2 -3 hemilami - Prior PT for back pain Future Testing and Treatments Planned None identified Treatment Goals Patient/Caregiver Goals Pt would like to get back to golf in a few months. Have ROM to be able to don shoes/socks more easily, be able to lift 40 pounds, and generally increase BLE strength. Prior Functional Status Baseline Function- ADL's Independent Baseline Function- Mobility Independent Baseline Function- Gait no AD except in the one week following surgery Baseline Function- Work/School Pt is retired. 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 Needs to use a shoe horn Functional Limitations- Mobility/Gait Antalgic. Pt ambulates with significant R trunk rotation and R lateral lean. Also demonstrates steppage gait R>L for clearance of right foot. Functional Limitations- Recreation/ Unable to participate in golf. Hobbies Functional Limitations- Other Unable to lift more than light grocery bags without pain. PT-OP-C Subjective Start: 06/10/20 14:36 Freq: Status: Active Protocol: Document 11/10/20 13:45 AW (Rec: 11/10/20 13:46 AW [id number]) OP-PT Subjective Patient Comments Patient Comments I've been active in the garden. 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 PT-OP-D Balance Start: 06/10/20 14:36 Freq: Status: Active Protocol: Document 06/10/20 14:30 AW (Rec: 06/10/20 17:51 AW [email or web address]) OP-PT Balance Assessment Sitting Balance Static Sitting Balance Ability Good Dynamic Sitting Balance Ability Good Standing Balance Static Standing Balance Ability Fair Dynamic Standing Balance Ability Fair Device Used no AD Standing Balance Comments SLS R and L equal on multiple trials: 8 sec, 6 sec, 8 sec Balance Tests Single Limb Standing Single Limb- Right 8,6,8 Single Limb- Left 8,8,6 Mccann Fall Scale Copyright Permission PT-OP-E Functional Tests Start: 06/10/20 14:36 Freq: Status: Active Protocol: Document 06/10/20 14:30 AW (Rec: 06/10/20 18:01 AW [email or web address]) Functional Tests Single Leg Squat Test Score from 26.5 mat table bilaterally PT-OP-F Manual Assessment Start: 06/10/20 14:36 Freq: Status: Active Protocol: Document 06/10/20 14:30 AW (Rec: 06/10/20 17:51 AW [email or web address]) Manual Assessments Soft Tissue Assessment Soft Tissue Mobility Assessment Significant tone bilateral lumbar paraspinals PT-OP-G Mobility & Gait Start: 06/10/20 14:36 Freq: Status: Active Protocol: Document 06/10/20 14:30 AW (Rec: 06/10/20 17:51 AW [email or web address]) OP Mobility Evaluation Transfers Sit to Stand (+) nikki's sign on multiple observed attempts OP Gait Assessment Gait Gait Assistance Required: Independent Distance (Feet) 200 Assistive Devices Assistive Device None Gait Deviations General Gait Pattern Antalgic,Decreased Stride Length,Decreased Feet Clearance,Lateral Trunk Lean Factors Limiting Gait Function Factors Limiting Gait Function Decreased Activity Tolerance, Decreased Sensation,Decreased Strength,Limited Range of Motion,Pain,Poor Balance Comments Gait Comments Antalgic gait notable for increased trunk rotation to the right and right lateral lean. High steppage gait R>L to compensate for reduced foot clearance. PT-OP-H Neuro Start: 06/10/20 14:36 Freq: Status: Active Protocol: Document 06/10/20 14:30 AW (Rec: 06/10/20 17:51 AW [email or web address]) Sensation Evaluation Gross Sensation Gross Sensation Left LE Impaired,Right LE Impaired Sensation Description Numbness,Tingling Dermatome Impairments L5 Deep Tendon Reflex & Clonus Assessment Deep Tendon Reflex Bilateral Achilles Deep Tendon Reflex 0 Absent Bilateral Patellar Deep Tendon Reflex 2+ Normal PT-OP-J Posture/Palpation/Skin Start: 06/10/20 14:36 Freq: Status: Active Protocol: Document 06/10/20 14:30 AW (Rec: 06/10/20 17:51 AW [email or web address]) Posture Evaluation Comments Posture Comments Swayback with flat lumbar spine. Notable hinge at TL junction 2/2 hardware. PT-OP-K Range of Motion Start: 06/10/20 14:36 Freq: Status: Active Protocol: Document 06/10/20 14:30 AW (Rec: 06/10/20 18:00 AW [email or web address]) Lumbar Spine Range of Motion Lumbar Spine Active Degrees Testing Position Standing Flexion 35 Extension 8 ROM Limitations Soft Tissue Tightness,Pain Comments Side bending with fingertips 14 from the floor bilaterally . Rotation ~25% bilaterally. Hip Goniometric Range of Motion Hip ROM Limitations Comments B hip ROM WNL except IR <15 degrees. PT-OP-L Special Tests Start: 06/10/20 14:36 Freq: Status: Active Protocol: Document 06/10/20 14:30 AW (Rec: 06/10/20 18:00 AW [email or web address]) Special Tests Hip Special Tests Scour Test Test Results right hip positive for pain reproduction PT-OP-M Strength Start: 06/10/20 14:36 Freq: Status: Active Protocol: Document 06/10/20 14:30 AW (Rec: 06/10/20 18:00 AW [email or web address]) Hip Strength Hip Manual Muscle Testing Right Flexion (L2) 4 Good Extension (S1) 3+ Fair+ Abduction 4- Good- External Rotation 4+ Good+ Internal Rotation 4+ Good+ Left Flexion (L2) 4 Good Extension (S1) 3+ Fair+ Abduction 4- Good- External Rotation 4+ Good+ Internal Rotation 4+ Good+ Knee Strength Knee Manual Muscle Testing Right Flexion (S2) 4 Good Extension (L3) 5 Normal Left Flexion (S2) 4 Good Extension (L3) 5 Normal Ankle/Foot Strength Ankle and Foot Manual Muscle Testing Right Dorsiflexion (L4) 4+ Good+ Plantarflexion (S1) 4- Good- Left Dorsiflexion (L4) 4+ Good+ Plantarflexion (S1) 4- Good- Toe Strength Toe Manual Muscle Testing Right Great Toe Extension 4- Good- Comments Left great toe extension 4+/5 PT-OP-Q Treatments Start: 06/10/20 14:36 Freq: Status: Active Protocol: Document 11/10/20 13:45 AW (Rec: 11/10/20 13:46 AW [id number]) Cardio Equipment Elliptical Duration (Minutes) 5 Resistance 5 Other good smooth movement with no rest breaks Gym Equipment Shuttle Recovery SL squat Resistance #75 Shuttle Recovery Platform Stable Reps/Time 10 x 2 Sport Cord fwd/bwd/lateral Exercise Details fwd/bwd/lateral Cord/Resistance green Comments focus on glute facilitation Therapeutic Exercises Supine Exercises SLR Side bilateral Reps/Minutes 8 x2 Comments good form, no discomfort bridging Side bilateral Equipment Used yellow band at knees Reps/Minutes 8 x 3 LTR Side bilateral Equipment Used red therapy ball Reps/Minutes 10 Sidelying Exercises hip abd Side bilateral Reps/Minutes 8x2 Comments fatigue at the end of the set Standing Exercises bend over row Equipment Used 10 lbs DB Reps/Minutes 10 x2 squat Comments for HEP hip hinge Standing Exercise Name SLDL Equipment Used 7 lbs DB x2 Reps/Minutes 10 x2 Manual Therapy Treatment Soft Tissue Mobilization QL Mobilization Type Sustained Pressure,Trigger Point Release Intensity/Depth Moderate Body Position Sidelying Comments improved post-STM Self-Care/Home Management Treatment Education Patient Education Home Exercise Program Other Education Encouraged pt to use phone Reminders for HEP performance PT-OP-R Modalities Start: 06/10/20 14:36 Freq: Status: Active Protocol: Document 11/10/20 13:45 AW (Rec: 11/10/20 13:46 AW [id number]) Hot Pack/Cold Pack Treatment Hot Pack Location lumbar Patient Position Hooklying Treatment Duration (minutes) 15 Patient Tolerance Good Comments end of session at pt request PT-OP-T Assessment and Plan Start: 06/10/20 14:36 Freq: Status: Active Protocol: Document 11/10/20 13:15 AW (Rec: 11/10/20 16:43 AW [email or web address]) Physical Therapy Assessment Goals Five Impairment ROM Short Term Goal (STG) 07/10 pt has been using sock aid for socks and shoe horn for shoes with laces. Prison Goal (LTG) 07/31 goal met Pt is able to don shoes and socks without shoe horn and without increase in baseline pain level. 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 09/09/20: Pt scores 5 (improved by one point since eval). LTG Duration 11/10/20 Two Impairment balance Short Term Goal (STG) Pt will improve SLS from table at height of 24 bilaterally to demonstrate improved BLE strength and stabilty STG Duration 6 weeks - 07/22/20 Prison Goal (LTG) Pt will improve SLS from table at height of 22 bilaterally to demonstrate improved BLE strength and stabilty 09/09/20: GOAL PROGRESS Pt able to stand on RLE from 22 height. LLE is challenging but doable from 24, unable at 22 LTG Duration 11/10/20 One Impairment Pt lacks appropriate exercise program Short Term Goal (STG) Pt will be independent with HEP for support of therapy services provided in clinic MET STG Duration 6 weeks - 07/22/20 Prison Goal (LTG) Pt will participate in self- selected aerobic exercise at least twice weekly. LTG Duration 11/10/20 Assessment Summary Assessment Pt tolerates ther ex but remains troubled by back pain, stiffness, and difficulty reaching items on the floor. He will return after ortho visit next week. Plateau in progress indicates likely discharge at next visit. Physical Therapy Plan Frequency and Duration Frequency of Treatment 2x/Week Duration of Treatment 2 months Plan of Care Start Date 09/10/20 Plan of Care End Date 11/10/20 Therapeutic Interventions Therapeutic Interventions Balance Training,Gait Training ,Home Exercise Program,Joint Mobilizations,Manual Therapy, Neuromuscular Re-education, Patient/Caregiver Education, Self-Care/Home Management,Soft Tissue Mobilization,Taping, Therapeutic Activities, Therapeutic Exercises Modalities Cold Pack/Ice Massage,Electric Stimulation,Hot Packs Next Visit Focus/Plan Next Note Type Discharge Summary
--- NOTE | 2020-11-26 12:22 | PT.OPPOC ---
Physical, Occupational & Speech Therapy At [facility] Current Diagnoses Spondylolisthesis, lumbar region (11/26/20) Spinal stenosis, lumbar region without neurogenic claudication (11/26/20) Postlaminectomy syndrome, not elsewhere classified (11/26/20) Difficulty in walking, not elsewhere classified (11/26/20) Abnormal posture (11/26/20) Visit Care Team Role Provider Type Lito Powell MD Family Provider Physician Primary Care Provider Specialty: Internal Medicine Address: [address] [place] [address], [id number] Email: [email or web address] Juan M Garvey MD Attending Provider Physician Referring Provider Specialty: Orthopedic Surgery Address: [address] [place] [address], [id number] Email: [email or web address] Plan Of [email or web address] PT-OP-T Assessment and Plan Start: 06/10/20 14:36 Freq: Status: Active Protocol: Document 11/26/20 10:30 AW (Rec: 11/26/20 12:21 AW [email or web address]) Physical Therapy Assessment Goals Five Impairment ROM Short Term Goal (STG) 07/10 pt has been using sock aid for socks and shoe horn for shoes with laces. Retirement Goal (LTG) 07/31 goal met Pt is able to don shoes and socks without shoe horn and without increase in baseline pain level. LTG Duration 3 months - 09/10/20 Four Impairment unable to particpate in recreational activities Short Term Goal (STG) 07/31 pt has not been able to play golf yet Retirement Goal (LTG) Pt will complete 9 holes of golf without increase in baseline pain level 09/09/20: Update goal to Pt will tolerate 30 minutes standing and walking in order to be able to participate in driving range activities 11/26/20 PARTIALLY MET LTG Duration 11/10/20 Three Impairment medium risk of chronicity Retirement Goal (LTG) Pt will score 3 or less total on STarT Back tool to demonstrate decreased likelihood of chronicity and catastrophization. 09/09/20: Pt scores 5 (improved by one point since eval). 11/26/20 NOT ASSESSED LTG Duration 11/10/20 Two Impairment balance Short Term Goal (STG) Pt will improve SLS from table at height of 24 bilaterally to demonstrate improved BLE strength and stabilty STG Duration 6 weeks - 07/22/20 Marble Cutter Goal (LTG) Pt will improve SLS from table at height of 22 bilaterally to demonstrate improved BLE strength and stabilty 09/09/20: GOAL PROGRESS Pt able to stand on RLE from 22 height. LLE is challenging but doable from 24, unable at 22 LTG Duration 11/10/20 One Impairment Pt lacks appropriate exercise program Short Term Goal (STG) Pt will be independent with HEP for support of therapy services provided in clinic MET STG Duration 6 weeks - 07/22/20 Marble Cutter Goal (LTG) Pt will participate in self- selected aerobic exercise at least twice weekly. 11/26/20 GOAL PROGRESS LTG Duration 11/10/20 Assessment Summary Assessment Pt walks with notably less antalgic gait today. He notes good progress and is independent with HEP. He is agreeable with discharge. Physical Therapy Plan Frequency and Duration Frequency of Treatment 2x/Week Duration of Treatment 2 months Plan of Care Start Date 09/10/20 Plan of Care End Date 11/26/20 Therapeutic Interventions Therapeutic Interventions Balance Training,Gait Training ,Home Exercise Program,Joint Mobilizations,Manual Therapy, Neuromuscular Re-education, Patient/Caregiver Education, Self-Care/Home Management,Soft Tissue Mobilization,Taping, Therapeutic Activities, Therapeutic Exercises Modalities Cold Pack/Ice Massage,Electric Stimulation,Hot Packs Discharge Physical Therapy Discharge Reasons Plateau in Progress Discharge Comments Pt walks with notably less antalgic gait today. He notes good progress and is independent with HEP. He is agreeable with discharge. Plan of Care Dates Plan of Care Start Date 09/10/20 Plan of Care End Date 11/26/20 Electronically Signed by: Otilia Henson, PT 11/26/20 0819 Please Sign and Return: I have reviewed this Plan of Care and certify that the skilled therapy services above are required to meet the patient?s needs. Physician Signature Date Printed Name and Credentials Clinical Instructor Signature Printed Name and Credentials
--- NOTE | 2020-11-26 12:22 | PT.OTN ---
Current Diagnoses Spondylolisthesis, lumbar region (11/26/20) Spinal stenosis, lumbar region without neurogenic claudication (11/26/20) Postlaminectomy syndrome, not elsewhere classified (11/26/20) Difficulty in walking, not elsewhere classified (11/26/20) Abnormal posture (11/26/20) Physical Therapy Treatment Note PT-OP-A Visit Information Start: 06/10/20 14:36 Freq: Status: Active Protocol: Document 11/26/20 10:30 AW (Rec: 11/26/20 10:30 AW [id number]) Out-Patient Physical Therapy Visit Information Visit Information Visit Type Treatment Note Visit Start Time 09:45 Visit Stop Time 10:30 Total Visit Minutes 45 Visit Number 36 Number of FIRST SAMPLER Visits 0 PT-OP-B Current Condition Start: 06/10/20 14:36 Freq: Status: Active Protocol: Document 06/10/20 14:30 AW (Rec: 06/10/20 15:22 AW [id number]) Current Condition History of Current Condition Onset Date years Current Complaints LBP, BLE pain (left worse than right) History of Current Condition Pt has had three lumbar surgeries. The first was 20 years ago - a laminotomy which provided relief for ~10 years . Second surgery 10 years ago was laminectomy which provided relief for a while. He started to have pain again about a year ago and had TLIF two months ago. He's been trying to take it easy since surgery. He complains he is unable to walk or stand >10 min due to pain which he describes as stiffness. He is unable to bend far enough to comfortably reach his feet, interfering with dressing and other self-care tasks. He also has pain in his hips after sitting more than 10 minutes. When he gets up from resting position, he tends to walk in bent-forward position at first. Pt also reports numbness or dull light touch sensation in bilateral feet which he says is getting better little by little since surgery. Prior Treatments and Tests - April 2020: L3-S1 TLIF, L2 -3 hemilami - Prior PT for back pain Future Testing and Treatments Planned None identified Treatment Goals Patient/Caregiver Goals Pt would like to get back to golf in a few months. Have ROM to be able to don shoes/socks more easily, be able to lift 40 pounds, and generally increase BLE strength. Prior Functional Status Baseline Function- ADL's Independent Baseline Function- Mobility Independent Baseline Function- Gait no AD except in the one week following surgery Baseline Function- Work/School Pt is retired. 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 Needs to use a shoe horn Functional Limitations- Mobility/Gait Antalgic. Pt ambulates with significant R trunk rotation and R lateral lean. Also demonstrates steppage gait R>L for clearance of right foot. Functional Limitations- Recreation/ Unable to participate in golf. Hobbies Functional Limitations- Other Unable to lift more than light grocery bags without pain. PT-OP-C Subjective Start: 06/10/20 14:36 Freq: Status: Active Protocol: Document 11/26/20 10:30 AW (Rec: 11/26/20 10:30 AW [id number]) OP-PT Subjective Patient Comments Patient Comments Dr. Garvey thinks the stiffness is related to scar tissue. Considering injection at L1. Considering massage therapy. I 've been doing more walking and feeling better the more I do. PT-OP-D Balance Start: 06/10/20 14:36 Freq: Status: Active Protocol: Document 06/10/20 14:30 AW (Rec: 06/10/20 17:51 AW [email or web address]) OP-PT Balance Assessment Sitting Balance Static Sitting Balance Ability Good Dynamic Sitting Balance Ability Good Standing Balance Static Standing Balance Ability Fair Dynamic Standing Balance Ability Fair Device Used no AD Standing Balance Comments SLS R and L equal on multiple trials: 8 sec, 6 sec, 8 sec Balance Tests Single Limb Standing Single Limb- Right 8,6,8 Single Limb- Left 8,8,6 Mccann Fall Scale Copyright Permission PT-OP-E Functional Tests Start: 06/10/20 14:36 Freq: Status: Active Protocol: Document 06/10/20 14:30 AW (Rec: 06/10/20 18:01 AW [email or web address]) Functional Tests Single Leg Squat Test Score from 26.5 mat table bilaterally PT-OP-F Manual Assessment Start: 06/10/20 14:36 Freq: Status: Active Protocol: Document 06/10/20 14:30 AW (Rec: 06/10/20 17:51 AW [email or web address]) Manual Assessments Soft Tissue Assessment Soft Tissue Mobility Assessment Significant tone bilateral lumbar paraspinals PT-OP-G Mobility & Gait Start: 06/10/20 14:36 Freq: Status: Active Protocol: Document 06/10/20 14:30 AW (Rec: 06/10/20 17:51 AW [email or web address]) OP Mobility Evaluation Transfers Sit to Stand (+) nikki's sign on multiple observed attempts OP Gait Assessment Gait Gait Assistance Required: Independent Distance (Feet) 200 Assistive Devices Assistive Device None Gait Deviations General Gait Pattern Antalgic,Decreased Stride Length,Decreased Feet Clearance,Lateral Trunk Lean Factors Limiting Gait Function Factors Limiting Gait Function Decreased Activity Tolerance, Decreased Sensation,Decreased Strength,Limited Range of Motion,Pain,Poor Balance Comments Gait Comments Antalgic gait notable for increased trunk rotation to the right and right lateral lean. High steppage gait R>L to compensate for reduced foot clearance. PT-OP-H Neuro Start: 06/10/20 14:36 Freq: Status: Active Protocol: Document 06/10/20 14:30 AW (Rec: 06/10/20 17:51 AW [email or web address]) Sensation Evaluation Gross Sensation Gross Sensation Left LE Impaired,Right LE Impaired Sensation Description Numbness,Tingling Dermatome Impairments L5 Deep Tendon Reflex & Clonus Assessment Deep Tendon Reflex Bilateral Achilles Deep Tendon Reflex 0 Absent Bilateral Patellar Deep Tendon Reflex 2+ Normal PT-OP-J Posture/Palpation/Skin Start: 06/10/20 14:36 Freq: Status: Active Protocol: Document 06/10/20 14:30 AW (Rec: 06/10/20 17:51 AW [email or web address]) Posture Evaluation Comments Posture Comments Swayback with flat lumbar spine. Notable hinge at TL junction 2/2 hardware. PT-OP-K Range of Motion Start: 06/10/20 14:36 Freq: Status: Active Protocol: Document 06/10/20 14:30 AW (Rec: 06/10/20 18:00 AW [email or web address]) Lumbar Spine Range of Motion Lumbar Spine Active Degrees Testing Position Standing Flexion 35 Extension 8 ROM Limitations Soft Tissue Tightness,Pain Comments Side bending with fingertips 14 from the floor bilaterally . Rotation ~25% bilaterally. Hip Goniometric Range of Motion Hip ROM Limitations Comments B hip ROM WNL except IR <15 degrees. PT-OP-L Special Tests Start: 06/10/20 14:36 Freq: Status: Active Protocol: Document 06/10/20 14:30 AW (Rec: 06/10/20 18:00 AW [email or web address]) Special Tests Hip Special Tests Scour Test Test Results right hip positive for pain reproduction PT-OP-M Strength Start: 06/10/20 14:36 Freq: Status: Active Protocol: Document 06/10/20 14:30 AW (Rec: 06/10/20 18:00 AW [email or web address]) Hip Strength Hip Manual Muscle Testing Right Flexion (L2) 4 Good Extension (S1) 3+ Fair+ Abduction 4- Good- External Rotation 4+ Good+ Internal Rotation 4+ Good+ Left Flexion (L2) 4 Good Extension (S1) 3+ Fair+ Abduction 4- Good- External Rotation 4+ Good+ Internal Rotation 4+ Good+ Knee Strength Knee Manual Muscle Testing Right Flexion (S2) 4 Good Extension (L3) 5 Normal Left Flexion (S2) 4 Good Extension (L3) 5 Normal Ankle/Foot Strength Ankle and Foot Manual Muscle Testing Right Dorsiflexion (L4) 4+ Good+ Plantarflexion (S1) 4- Good- Left Dorsiflexion (L4) 4+ Good+ Plantarflexion (S1) 4- Good- Toe Strength Toe Manual Muscle Testing Right Great Toe Extension 4- Good- Comments Left great toe extension 4+/5 PT-OP-Q Treatments Start: 06/10/20 14:36 Freq: Status: Active Protocol: Document 11/26/20 10:30 AW (Rec: 11/26/20 10:30 AW [id number]) Cardio Equipment Elliptical Duration (Minutes) 5 Resistance 5 Other good smooth movement with no rest breaks Gym Equipment Shuttle Recovery SL squat Resistance #75 Shuttle Recovery Platform Stable Reps/Time 12 x 2; pt SOB Therapeutic Exercises Standing Exercises bend over row Equipment Used 10 lbs DB Reps/Minutes 10 x2 calf raises Comments for HEP deadlift Standing Exercise Name sumo single arm deadlift Equipment Used 10 lbs DB Reps/Minutes 8x2 Comments DB down to mid mayen step up Standing Exercise Name step up - fwd, lateral Side bilateral Resistance 12 step Equipment Used no rails, SBA BLE Reps/Minutes 10 x 2 squat Comments for HEP hip hinge Standing Exercise Name SLDL Equipment Used 10 lbs DB x2 Reps/Minutes 10 x2 PT-OP-R Modalities Start: 06/10/20 14:36 Freq: Status: Active Protocol: Document 11/10/20 13:45 AW (Rec: 11/10/20 13:46 AW [id number]) Hot Pack/Cold Pack Treatment Hot Pack Location lumbar Patient Position Hooklying Treatment Duration (minutes) 15 Patient Tolerance Good Comments end of session at pt request PT-OP-T Assessment and Plan Start: 06/10/20 14:36 Freq: Status: Active Protocol: Document 11/26/20 10:30 AW (Rec: 11/26/20 12:21 AW [email or web address]) Physical Therapy Assessment Goals Five Impairment ROM Short Term Goal (STG) 07/10 pt has been using sock aid for socks and shoe horn for shoes with laces. Director Summer Sessions Goal (LTG) 07/31 goal met Pt is able to don shoes and socks without shoe horn and without increase in baseline pain level. LTG Duration 3 months - 09/10/20 Four Impairment unable to particpate in recreational activities Short Term Goal (STG) 07/31 pt has not been able to play golf yet Director Summer Sessions Goal (LTG) Pt will complete 9 holes of golf without increase in baseline pain level 09/09/20: Update goal to Pt will tolerate 30 minutes standing and walking in order to be able to participate in driving range activities 11/26/20 PARTIALLY MET LTG Duration 11/10/20 Three Impairment medium risk of chronicity Senior Care Goal (LTG) Pt will score 3 or less total on STarT Back tool to demonstrate decreased likelihood of chronicity and catastrophization. 09/09/20: Pt scores 5 (improved by one point since eval). 11/26/20 NOT ASSESSED LTG Duration 11/10/20 Two Impairment balance Short Term Goal (STG) Pt will improve SLS from table at height of 24 bilaterally to demonstrate improved BLE strength and stabilty STG Duration 6 weeks - 07/22/20 Senior Care Goal (LTG) Pt will improve SLS from table at height of 22 bilaterally to demonstrate improved BLE strength and stabilty 09/09/20: GOAL PROGRESS Pt able to stand on RLE from 22 height. LLE is challenging but doable from 24, unable at 22 LTG Duration 11/10/20 One Impairment Pt lacks appropriate exercise program Short Term Goal (STG) Pt will be independent with HEP for support of therapy services provided in clinic MET STG Duration 6 weeks - 07/22/20 Senior Care Goal (LTG) Pt will participate in self- selected aerobic exercise at least twice weekly. 11/26/20 GOAL PROGRESS LTG Duration 11/10/20 Assessment Summary Assessment Pt walks with notably less antalgic gait today. He notes good progress and is independent with HEP. He is agreeable with discharge. Physical Therapy Plan Frequency and Duration Frequency of Treatment 2x/Week Duration of Treatment 2 months Plan of Care Start Date 09/10/20 Plan of Care End Date 11/26/20 Therapeutic Interventions Therapeutic Interventions Balance Training,Gait Training ,Home Exercise Program,Joint Mobilizations,Manual Therapy, Neuromuscular Re-education, Patient/Caregiver Education, Self-Care/Home Management,Soft Tissue Mobilization,Taping, Therapeutic Activities, Therapeutic Exercises Modalities Cold Pack/Ice Massage,Electric Stimulation,Hot Packs Discharge Physical Therapy Discharge Reasons Plateau in Progress Discharge Comments Pt walks with notably less antalgic gait today. He notes good progress and is independent with HEP. He is agreeable with discharge.
== END 2020-11-26 13:26 | disposition home or self-care (01) ==
LOC: PHYS 09:45
PROVIDERS: Family Provider Internal Medicine; PCP Internal Medicine; Referring Provider Orthopaedic Surgery Orthopaedic Surgery of the Spine; Visit Provider Orthopaedic Surgery Orthopaedic Surgery of the Spine
DX: M96.1 Postlaminectomy syndrome, not elsewhere classified (principal); M48.061 Spinal stenosis, lumbar region without neurogenic claudication; M43.16 Spondylolisthesis, lumbar region; R29.3 Abnormal posture; R26.2 Difficulty in walking, not elsewhere classified
CPT/HCPCS: 97010; 97110; 97140; 97161; 97530

== ENCOUNTER → 2021-02-14 11:39 | Outpatient (CLI) | payer MEDICARE, OTHER, SELFPAY ==
[2020-04-22 18:29] VITALS: BMI 25.4
[2021-02-14 12:07] LABS: COVID19 -Nasal RAPID Negative (Negative)
== END ==
PROVIDERS: Family Provider Internal Medicine; PCP Internal Medicine; Referring Provider Nurse Practitioner Family; Visit Provider Nurse Practitioner Family
DX: J32.9 Chronic sinusitis, unspecified (principal); R05.9 Cough, unspecified
CPT/HCPCS: 87635

== ENCOUNTER → 2021-04-06 12:20 | Outpatient (CLI) | payer MEDICARE, OTHER, SELFPAY ==
[2020-04-22 18:29] VITALS: BMI 25.4
[2021-04-06 13:01] LABS: Add Manual Diff / Slide Review NO; Basophils Absolute Auto 100 /uL (0-100); Basophils Percent Auto 0.9 % (0-2); Eosinophils Absolute Auto 200 /uL (0-450); Eosinophils Percent Auto 2.7 % (2-4); Hematocrit 46.4 % (41-53); Hemoglobin 15.5 g/dL (13.5-17.5); Lymphocytes Absolute Auto 1700 /uL (1100-4500); Lymphocytes Percent Auto 27.3 % (25-40); Mean Corpuscular HGB Conc 33.5 % (30-36); Mean Corpuscular Hemoglobin 28.6 PG (26-34); Mean Corpuscular Volume 85.5 fL (80-100); Monocytes Absolute Auto 500 /uL (0-900); Monocytes Percent Auto 8.6 % (3-14); Neutrophils Absolute Auto 3800 /uL (1500-7000); Neutrophils Percent Auto 60.5 % (50-75); Platelet Count 224 X10^3/uL (150-400); Red Blood Cell Count 5.43 X10^6/uL (4.5-5.9); Red Cell Distribution Width 14.7 % (11.6-14.8); White Blood Cell Count 6.3 X10^3/uL (4.5-11.0)
[2021-04-06 13:28] LABS: Alanine Aminotransferase 29 IU/L (<50); Albumin 4.7 g/dL (3.5-5.0); Albumin Globulin Ratio 1.5 (1.0-2.8); Alkaline Phosphatase 80 U/L (38-126); Aspartate Aminotransferase 33 IU/L (17-59); BUN Creatinine Ratio 18.1 (6-22); Bilirubin Unconjugated 0.7 mg/dL (0.0-1.1); Blood Urea Nitrogen 15 mg/dL (9-20); Calcium 9.9 mg/dL (8.4-10.2); Carbon Dioxide 27 mmol/L (22-32); Chloride 107 mmol/L (98-107); Cholesterol 189 mg/dL (140-199); Estimated Glomerular Filt Rate > 60.0 mL/min (>60); Globulin 3.1 g/dL (1.7-4.1); Glucose 86 mg/dL (80-110); HDL Cholesterol 108 mg/dL (40-60); HEMOLYSIS < 15 (0-50); LDL Cholesterol Calculated 62 mg/dL (<100); Potassium 4.2 mmol/L (3.4-5.1); Sodium 141 mmol/L (137-145); Total Protein 7.8 g/dL (6.3-8.2); Triglycerides 95 mg/dL (35-150)
[2021-04-06 13:39] LABS: LDL Cholesterol Direct 75 mg/dL (<100)
[2021-04-07 03:08] LABS: Hepatitis B Surf AB Quant 5.3 mIU/mL (Immunity>9.9)
[2021-04-07 05:43] LABS: Hepatitis B Core Antibody Negative (Negative)
[2021-04-08 12:21] LABS: QuantiFERON Mitogen Value >10.00 IU/mL (.); QuantiFERON TB Gold Plus Negative (Negative)
[2021-04-09 09:21] LABS: Hepatitis B Surface Antigen NEGATIVE s/c (NEGATIVE)
[2021-04-09 09:44] LABS: Hep C Virus Ab w/Reflex Quant NEGATIVE s/c (NEGATIVE)
== END ==
PROVIDERS: Family Provider Internal Medicine; PCP Internal Medicine; Referring Provider Physician Assistant; Visit Provider Physician Assistant
DX: L40.0 Psoriasis vulgaris (principal); L82.1 Other seborrheic keratosis; L57.8 Other skin changes due to chronic exposure to nonionizing radiation
CPT/HCPCS: 36415; 80048; 80061; 80076; 83721; 85025; 86480; 86704; 86706; 86803; 87340

== ENCOUNTER → 2021-07-12 13:56 | Outpatient (CLI) | payer MEDICARE, OTHER, SELFPAY ==
[2021-06-01 11:09] VITALS: BMI 25.4
[2021-07-12 14:40] LABS: Add Manual Diff / Slide Review NO; Basophils Absolute Auto 100 /uL (0-100); Basophils Percent Auto 0.8 % (0-2); Eosinophils Absolute Auto 100 /uL (0-450); Eosinophils Percent Auto 1.9 % (2-4); Hematocrit 45.9 % (41-53); Hemoglobin 15.3 g/dL (13.5-17.5); Lymphocytes Absolute Auto 1700 /uL (1100-4500); Lymphocytes Percent Auto 23.1 % (25-40); Mean Corpuscular HGB Conc 33.3 % (30-36); Mean Corpuscular Hemoglobin 28.3 PG (26-34); Mean Corpuscular Volume 84.9 fL (80-100); Monocytes Absolute Auto 600 /uL (0-900); Monocytes Percent Auto 8.4 % (3-14); Neutrophils Absolute Auto 4800 /uL (1500-7000); Neutrophils Percent Auto 65.8 % (50-75); Platelet Count 216 X10^3/uL (150-400); Red Cell Distribution Width 14.2 % (11.6-14.8); White Blood Cell Count 7.4 X10^3/uL (4.5-11.0)
[2021-07-12 16:14] LABS: Alanine Aminotransferase 29 IU/L (<50); Albumin 4.7 g/dL (3.5-5.0); Albumin Globulin Ratio 1.7 (1.0-2.8); Alkaline Phosphatase 73 U/L (38-126); Aspartate Aminotransferase 30 IU/L (17-59); BUN Creatinine Ratio 24.2 (6-22); Bilirubin Total 0.8 mg/dL (0.2-1.3); Blood Urea Nitrogen 22 mg/dL (9-20); Calcium 9.4 mg/dL (8.4-10.2); Carbon Dioxide 25 mmol/L (22-32); Chloride 105 mmol/L (98-107); Estimated Glomerular Filt Rate > 60.0 mL/min (>60); Globulin 2.8 g/dL (1.7-4.1); Glucose 92 mg/dL (80-110); HEMOLYSIS < 15 (0-50); Potassium 4.2 mmol/L (3.4-5.1); Sodium 139 mmol/L (137-145); Total Protein 7.5 g/dL (6.3-8.2)
== END ==
PROVIDERS: Family Provider Internal Medicine; PCP Internal Medicine; Referring Provider Physician Assistant; Visit Provider Physician Assistant
DX: L40.0 Psoriasis vulgaris (principal)
CPT/HCPCS: 36415; 80053; 82172; 82247; 82465; 82947; 82977; 83010; 85025

== ENCOUNTER → 2021-10-05 11:29 | Outpatient (CLI) | payer MEDICARE, OTHER, SELFPAY ==
[2021-06-01 11:09] VITALS: BMI 25.4
[2021-10-05 12:44] LABS: Add Manual Diff / Slide Review NO; Basophils Absolute Auto 0 /uL (0-100); Basophils Percent Auto 0.6 % (0-2); Eosinophils Absolute Auto 100 /uL (0-450); Eosinophils Percent Auto 2.1 % (2-4); Hematocrit 46.1 % (41-53); Hemoglobin 15.6 g/dL (13.5-17.5); Lymphocytes Absolute Auto 1600 /uL (1100-4500); Lymphocytes Percent Auto 25.4 % (25-40); Mean Corpuscular HGB Conc 33.8 % (30-36); Mean Corpuscular Hemoglobin 28.7 PG (26-34); Mean Corpuscular Volume 84.9 fL (80-100); Monocytes Absolute Auto 500 /uL (0-900); Monocytes Percent Auto 7.8 % (3-14); Neutrophils Absolute Auto 4100 /uL (1500-7000); Neutrophils Percent Auto 64.1 % (50-75); Platelet Count 211 X10^3/uL (150-400); Red Blood Cell Count 5.43 X10^6/uL (4.5-5.9); Red Cell Distribution Width 14.5 % (11.6-14.8); White Blood Cell Count 6.4 X10^3/uL (4.5-11.0)
[2021-10-05 12:59] LABS: Alanine Aminotransferase 32 IU/L (<50); Albumin 4.6 g/dL (3.5-5.0); Albumin Globulin Ratio 1.5 (1.0-2.8); Alkaline Phosphatase 78 U/L (38-126); Aspartate Aminotransferase 37 IU/L (17-59); BUN Creatinine Ratio 17.9 (6-22); Bilirubin Total 0.9 mg/dL (0.2-1.3); Blood Urea Nitrogen 14 mg/dL (9-20); Calcium 9.1 mg/dL (8.4-10.2); Carbon Dioxide 27 mmol/L (22-32); Chloride 103 mmol/L (98-107); Estimated Glomerular Filt Rate > 60 mL/min (>60); Globulin 3.1 g/dL (1.7-4.1); Glucose 88 mg/dL (80-110); HEMOLYSIS < 15 (0-50); Sodium 137 mmol/L (137-145); Total Protein 7.7 g/dL (6.3-8.2)
[2021-10-06 05:59] LABS: Hepatitis B Surf AB Quant <3.1 mIU/mL (Immunity>9.9)
[2021-10-07 17:30] LABS: Hep C Virus Ab w/Reflex Quant NEGATIVE s/c (NEGATIVE)
[2021-10-08 05:27] LABS: QuantiFERON Mitogen Value >10.00 IU/mL (.); QuantiFERON TB Gold Plus Negative (Negative)
[2021-10-10 10:28] LABS: HIV 1 RNA Non Reactive (Non Reactive); HIV 2 RNA Non Reactive (Non Reactive)
== END ==
PROVIDERS: Family Provider Internal Medicine; PCP Internal Medicine; Referring Provider Physician Assistant; Visit Provider Physician Assistant
DX: L40.0 Psoriasis vulgaris (principal)
CPT/HCPCS: 36415; 80053; 85025; 86480; 86706; 86803; 87535; 87538

== ENCOUNTER → 2021-11-11 13:05 | Outpatient (CLI) | payer MEDICARE, OTHER, SELFPAY ==
[2021-06-01 11:09] VITALS: BMI 25.4
[2021-11-11 21:09] LABS: Hepatitis B Surface Antigen NEGATIVE s/c (NEGATIVE)
== END ==
PROVIDERS: Family Provider Internal Medicine; PCP Internal Medicine; Referring Provider Physician Assistant; Visit Provider Physician Assistant
DX: L40.0 Psoriasis vulgaris (principal)
CPT/HCPCS: 87340

== ENCOUNTER → 2022-01-18 11:51 | Outpatient (CLI) | payer MEDICARE, OTHER, SELFPAY ==
[2021-06-01 11:09] VITALS: BMI 25.4
[2022-01-18 13:47] LABS: Add Manual Diff / Slide Review NO; Basophils Absolute Auto 100 /uL (0-100); Eosinophils Absolute Auto 100 /uL (0-450); Eosinophils Percent Auto 1.8 % (2-4); Hematocrit 46.8 % (41-53); Hemoglobin 15.4 g/dL (13.5-17.5); Lymphocytes Absolute Auto 2000 /uL (1100-4500); Lymphocytes Percent Auto 31.2 % (25-40); Mean Corpuscular Volume 84.8 fL (80-100); Monocytes Absolute Auto 600 /uL (0-900); Monocytes Percent Auto 9.6 % (3-14); Neutrophils Absolute Auto 3500 /uL (1500-7000); Neutrophils Percent Auto 56.4 % (50-75); Platelet Count 221 X10^3/uL (150-400); Red Blood Cell Count 5.51 X10^6/uL (4.5-5.9); Red Cell Distribution Width 14.9 % (11.6-14.8); White Blood Cell Count 6.3 X10^3/uL (4.5-11.0)
[2022-01-18 14:11] LABS: Alanine Aminotransferase 37 IU/L (<50); Albumin 4.4 g/dL (3.5-5.0); Albumin Globulin Ratio 1.5 (1.0-2.8); Alkaline Phosphatase 75 U/L (38-126); Aspartate Aminotransferase 37 IU/L (17-59); BUN Creatinine Ratio 20.7 (6-22); Blood Urea Nitrogen 18 mg/dL (9-20); Calcium 9.3 mg/dL (8.4-10.2); Carbon Dioxide 30 mmol/L (22-32); Chloride 101 mmol/L (98-107); Estimated Glomerular Filt Rate > 60 mL/min (>60); Glucose 88 mg/dL (80-110); HEMOLYSIS < 15 (0-50); Potassium 4.2 mmol/L (3.4-5.1); Sodium 138 mmol/L (137-145); Total Protein 7.4 g/dL (6.3-8.2)
== END ==
PROVIDERS: Family Provider Internal Medicine; PCP Internal Medicine; Referring Provider Physician Assistant; Visit Provider Physician Assistant
DX: L40.0 Psoriasis vulgaris (principal)
CPT/HCPCS: 36415; 80053; 85025

== ENCOUNTER → 2022-03-21 14:04 | Outpatient (CLI) | payer MEDICARE, OTHER, SELFPAY ==
[2022-03-17 11:27] VITALS: BMI 25.4
[2022-03-21 14:43] LABS: Hematocrit 48.3 % (41-53); Hemoglobin 15.8 g/dL (13.5-17.5); Mean Corpuscular HGB Conc 32.7 % (30-36); Mean Corpuscular Hemoglobin 28.3 PG (26-34); Mean Corpuscular Volume 86.3 fL (80-100); Platelet Count 235 X10^3/uL (150-400); Red Blood Cell Count 5.59 X10^6/uL (4.5-5.9); White Blood Cell Count 8.2 X10^3/uL (4.5-11.0)
[2022-03-21 15:49] LABS: Alanine Aminotransferase 38 IU/L (<50); Albumin 4.7 g/dL (3.5-5.0); Albumin Globulin Ratio 1.5 (1.0-2.8); Alkaline Phosphatase 79 U/L (38-126); Aspartate Aminotransferase 36 IU/L (17-59); BUN Creatinine Ratio 25.5 (6-22); Bilirubin Total 0.9 mg/dL (0.2-1.3); Blood Urea Nitrogen 26 mg/dL (9-20); Calcium 9.6 mg/dL (8.4-10.2); Carbon Dioxide 27 mmol/L (22-32); Chloride 102 mmol/L (98-107); Cholesterol 185 mg/dL (140-199); Estimated Glomerular Filt Rate > 60 mL/min (>60); Globulin 3.1 g/dL (1.7-4.1); Glucose 91 mg/dL (80-110); HDL Cholesterol 90 mg/dL (40-60); HEMOLYSIS < 15 (0-50); LDL Cholesterol Calculated 74 mg/dL (<100); Potassium 4.3 mmol/L (3.4-5.1); Sodium 140 mmol/L (137-145); Total Protein 7.8 g/dL (6.3-8.2); Triglycerides 106 mg/dL (35-150)
[2022-03-21 16:21] LABS: Prostate Specific Antigen 2.71 ng/mL (0.10-4.00)
== END ==
PROVIDERS: Family Provider Internal Medicine; PCP Internal Medicine; Referring Provider Internal Medicine; Visit Provider Internal Medicine
DX: E78.2 Mixed hyperlipidemia (principal); N40.0 Benign prostatic hyperplasia without lower urinary tract symptoms; I10 Essential (primary) hypertension; L40.50 Arthropathic psoriasis, unspecified
CPT/HCPCS: 36415; 80053; 80061; 84153; 85027

== ENCOUNTER 2022-05-17 09:58 | Day surgery (SDC) | payer MEDICARE, OTHER, SELFPAY ==
[2022-03-17 11:27] VITALS: BMI 25.4
--- NOTE | 2022-05-17 | PATH_ITS ---
[facility] Accession Number: [id number] No. of containers..02 Tissue . 01 Material submitted: . PART A: ILEOCECAL VALVE - ILEOCECAL VALVE POLYP PART B: sigmoid colon - SIGMOID POLYP . 01 Diagnosis: A. Ileocecal Valve Polyp: Tubular adenoma. . B. Sigmoid Colon Polyp: Hyperplastic polyp. MRV 05/23/2022 1224 Local . 01 Electronically signed: . Moises Jones MD, PhD, Pathologist NPI- [id number] . 01 Gross description: . Part A: ILEOCECAL VALVE POLYP: Received in formalin is 1 fragment(s) of cristina, soft tissue measuring 0.3 x 0.2 x 0.2 cm submitted entirely in 1 cassette(s) Part B: SIGMOID POLYP: Received in formalin is 1 fragment(s) of cristina, soft tissue measuring 0.3 x 0.2 x 0.1 cm submitted entirely in 1 cassette(s) /CRISTOBAL 05/18/2022 1908 Local . 01 Pathologist provided ICD-10: D12.0 . 01 CPT . 831403, 647127 Specimen Comment: A courtesy copy of this report has been sent to [phone] Performed at: 01 [facility] [address] [place] [address], [place], [place] [id number] MD Clayton Fitzpatrick MD Phone: [phone]
[2022-05-17] MEDS: LACTATED RINGERS 1,000 ML 200 ML IV (10:14)
[2022-05-17 10:24] VITALS: BP 140/84; PULSE 76; RESP 17; TEMP 36.1; O2SAT 97; BMI 25.8
--- NOTE | 2022-05-17 11:35 | PM.HP.1 ---
History of Present Illness History of Present Illness Date Patient Seen: 05/17/22 Time Patient Seen: 11:35 Date of Onset of Symptoms: 05/17/22 Chief complaint: SDC Narrative: The patient presents for colorectal screening. Personal history of colonic polyps last colonoscopy 5 years ago.. No personal or family history of colon cancer. On further history denies any recent gastrointestinal symptoms. No nausea, vomiting, abdominal pain, loss of appetite, unexplained weight loss, change in bowel habits, or blood per rectum. Patient History Medical History (Updated 03/22/22 @ 08:35 by Lito Powell MD) Acid reflux Arthritis Attention deficit disorder predominant inattentive type Back pain, chronic BPH w urinary obs/LUTS Cataracts, bilateral Chronic, continuous use of opioids Essential hypertension Hearing impaired History of colonic polyps History of Mohs micrographic surgery for skin cancer (2019) Hx of Prinzmetal angina (~1999) Hyperlipidemia Macular pucker, left eye Medicare annual wellness visit, initial Mixed hyperlipidemia Osteoarthritis Post-nasal drip Postlaminectomy syndrome Postlaminectomy syndrome, not elsewhere classified Primary osteoarthritis involving multiple joints Psoriasis Psoriatic arthritis Right cervical radiculopathy Rising PSA level Sciatica Spinal stenosis Spinal stenosis, lumbar region without neurogenic claudication Spondylolisthesis, lumbar region Surgical History Anesthesia History of back surgery (~2002) History of eye surgery History of phacoemulsification of cataract of left eye with intraocular lens implantation History of surgery (10/2019) Hx of laminectomy (~2008) Hx of parotidectomy (1960) Hx of tonsillectomy S/P excision of lipoma (05/2016) Family & Social History Family History Father Cancer Mother Cancer Grandfather Cancer Grandmother Cancer Social History: household members spouse Tobacco & Substance use: Tobacco type cigarettes Smoking Status Former smoker alcohol intake current alcohol intake frequency 3 or more drinks per day Substance Use Type marijuana Meds Home Medications and Allergies Home Medications Medication Instructions Recorded Confirmed Type folic acid 1 mg tablet 1 mg PO SEEINSTR 03/10/20 05/17/22 History phenylephrine HCl 10 mg tablet 10 mg PO Q4-6H PRN Sinus congestion 03/10/20 03/18/22 History methotrexate sodium 2.5 mg tablet 12.5 mg PO QWEEK 08/11/21 05/17/22 History amlodipine 5 mg tablet 10 mg PO DAILY #180 tabs 01/12/22 05/17/22 Rx atorvastatin 40 mg tablet (Lipitor) 40 mg PO DAILY #90 tabs 01/12/22 05/17/22 Rx losartan 50 mg tablet 50 mg PO DAILY #90 tabs 01/12/22 05/17/22 Rx meloxicam 15 mg tablet 15 mg PO DAILY #90 tabs 01/12/22 05/17/22 Rx dextroamphetamine sulfate 10 mg 10 mg PO DAILY #60 tabs 03/18/22 05/17/22 Rx tablet hydrocodone 5 mg-acetaminophen 325 1 tab PO BID PRN pain #60 tabs 03/18/22 05/17/22 Rx mg tablet hydrocodone 5 mg-acetaminophen 325 1 tab PO BID PRN pain #60 tabs 03/18/22 05/17/22 Rx mg tablet hydrocodone 5 mg-acetaminophen 325 1 tab PO DAILY #60 tabs 03/18/22 05/17/22 Rx mg tablet lorazepam 0.5 mg tablet 0.5 mg PO BID PRN sleep #60 tabs 03/18/22 05/17/22 Rx sodium,potassium,mag sulfates 17.5 See Rx Instructions PO .COMPLEX 04/28/22 Rx gram-3.13 gram-1.6 gram oral soln #354 mL (Suprep Bowel Prep Kit) Allergies Allergy/AdvReac Type Severity Reaction Status Date / Time duloxetine AdvReac Mild Night Verified 05/17/22 10:18 sweats, sexual dysfunction tamsulosin AdvReac Mild erectile Verified 05/17/22 10:18 dysfunction Exam Vital Signs (past 8 hours): - 05/17/22 10:24 Temperature 97.0 F L Pulse Rate 76 Respiratory Rate 17 Blood Pressure 140/84 Pulse Oximetry 97 Oxygen Delivery Method Room Air Oxygen Delivery Method Room Air Narrative Exam Narrative: General adult male alert oriented no acute distress Abdomen soft nontender nondistended Assessment & Plan Assessment & Plan narrative: The patient requires colorectal screening and colonoscopy is recommended. Technical details were discussed. Risks, benefits, alternatives explained. Risks including but not limited to myocardial infarction, aspiration, bleeding, pain, missed lesion, incomplete examination, need for further radiographic studies, colonic perforation, and need for major abdominal surgery were discussed. All questions were answered to their satisfaction, and they are in agreement with this plan. Time Spent With Patient Critical Care time: I spent a total of [] minutes of critical care time on this patient's care today; this time is exclusive of procedural time.
[2022-05-17 12:09] VITALS: BP 93/58; PULSE 67; RESP 14; TEMP 36.2; O2SAT 97
--- NOTE | 2022-05-17 12:10 | PM.OP.COLON ---
Operative Date/Time/Diagnoses Date of procedure: 05/17/22 Time of procedure: 12:10 Pre-op diagnosis: Personal history of colonic polyps Post-op diagnosis: other (Colonic polyps x2) Procedure & Clinicians Study performed: Colonoscopy and polypectomy Same procedure as scheduled: Yes Indications: Personal history of colonic polyps colorectal screening Surgeon: Fco Anderson Procedure Notes Procedure in detail: The history and physical was performed/updated and the patient is ASA class is 2. The procedure was discussed in detail with the patient. Potential risks complications including infection, bleeding, missed diagnosis, perforation, need for surgery, and were explained. Their questions were answered and informed consent was obtained. Patient was brought to the procedure room and placed standard monitoring equipment. The patient's vital signs were monitored continuously throughout the entire procedure. Prior to starting time-out was performed. The patient was placed in the left lateral recumbent position. Procedural sedation was administered by anesthesia. Examination began with a thorough inspection of the perianal area there was no evidence of fissures, fistulae, external hemorrhoids or cutaneous malignancy. The colonoscopy scope was then placed into the anal canal and was advanced to the cecum, which was identified by the ileocecal valve, the appendiceal orifice and the confluence of the taenia. The scope was then slowly withdrawn examining colon thoroughly in all directions, irrigating it of any residual stool. On the face of the ileocecal valve there was a 1 cm polyp which was removed with cold snare. Within the sigmoid colon there was a 5 mm polyp removed with cold snare. Retroflexion was performed within the rectum grossly normal. The patient tolerated the procedure well. They will be discharged once criteria are met. The prep was of good/excellent quality. The withdrawl time was 9 minutes. Specimen(s): other (Ileocecal valve polyp and sigmoid polyp) Complications: none Impression: Colonic polyps x2 Post-procedure Recommendations: High fiber diet Plan for aftercare: Follow-up is dependent on pathology findings Disposition: same day surgery
[2022-05-17 12:13] VITALS: BP 92/60; PULSE 64; RESP 10; O2SAT 95
[2022-05-17 12:19] VITALS: BP 103/76; PULSE 81; RESP 17; TEMP 36.4; O2SAT 96
== END 2022-05-17 12:40 | disposition home or self-care (01) ==
PROVIDERS: Family Provider Internal Medicine; PCP Internal Medicine; Referring Provider Surgery; Visit Provider Surgery
PROC: 0DJD8ZZ Inspection of Lower Intestinal Tract, Via Natural or Artificial Opening Endoscopic (ICD-10-PCS; CPT 45378; principal; 2022-05-17 11:00)
DX: Z12.11 Encounter for screening for malignant neoplasm of colon (principal); Z86.010 Personal history of colon polyps; D12.0 Benign neoplasm of cecum
CPT/HCPCS: 45385; J2704

== ENCOUNTER → 2022-05-26 12:33 | Outpatient (CLI) | payer MEDICARE, OTHER, SELFPAY ==
[2022-03-17 11:27] VITALS: BMI 25.4
[2022-05-26 14:00] LABS: Appearance Urine UA CLEAR; Bilirubin Urine UA NEGATIVE (NEGATIVE); Color Urine UA YELLOW; Glucose Urine UA NEGATIVE (Negative); Ketones Urine UA NEGATIVE (NEGATIVE); Leukocyte Esterase Urine UA NEGATIVE (NEGATIVE); Nitrite Urine UA NEGATIVE (Negative); Occult Blood Urine UA NEGATIVE (Negative); Protein Urine UA NEGATIVE (Negative); Urobilinogen Urine UA 0.2 E.U./dL (0.2)
[2022-05-26 14:16] LABS: Bacteria Urine Occasional (0-1); Culture Indicated Urine Cult Not Indicated; RBC Urine 0-1/HPF (0-5/HPF); WBC Urine 0-1/HPF (0-5/HPF)
== END ==
PROVIDERS: Family Provider Internal Medicine; PCP Internal Medicine; Referring Provider Internal Medicine; Visit Provider Internal Medicine
DX: R10.31 Right lower quadrant pain (principal)
CPT/HCPCS: 81001

== ENCOUNTER → 2022-07-01 15:42 | Outpatient (CLI) | payer MEDICARE, OTHER, SELFPAY ==
[2022-03-17 11:27] VITALS: BMI 25.4
[2022-07-01 16:53] LABS: BUN Creatinine Ratio 20.5 (6-22); Blood Urea Nitrogen 17 mg/dL (9-20); Calcium 9.5 mg/dL (8.4-10.2); Carbon Dioxide 28 mmol/L (22-32); Chloride 103 mmol/L (98-107); Estimated Glomerular Filt Rate > 60 mL/min (>60); Glucose 77 mg/dL (80-110); HEMOLYSIS < 15 (0-50); Potassium 4.2 mmol/L (3.4-5.1); Sodium 141 mmol/L (137-145)
[2022-07-03 09:52] LABS: PSA Free % 20.4 % (.); PSA, Total 2.4 ng/mL (0.0-4.0)
== END ==
PROVIDERS: Family Provider Internal Medicine; PCP Internal Medicine; Referring Provider Internal Medicine; Visit Provider Internal Medicine
DX: R97.20 Elevated prostate specific antigen [PSA] (principal); I10 Essential (primary) hypertension
CPT/HCPCS: 36415; 80048; 84153; 84154

== ENCOUNTER → 2022-09-26 10:52 | Outpatient (CLI) | payer MEDICARE, OTHER, SELFPAY ==
[2022-03-17 11:27] VITALS: BMI 25.4
== END ==
PROVIDERS: Family Provider Internal Medicine; PCP Internal Medicine; Visit Provider Nurse Practitioner Family
DX: J02.9 Acute pharyngitis, unspecified (principal)
CPT/HCPCS: 87070

== ENCOUNTER → 2023-02-24 08:57 | Outpatient (CLI) | payer MEDICARE, OTHER, SELFPAY ==
[2022-03-17 11:27] VITALS: BMI 25.4
--- NOTE | 2023-02-24 | DI.MRI.S_ITS ---
PROCEDURE: MR SHOULDER LT WO CON INDICATIONS: Complete rotator cuff tear or rupture of left shoulder, not TECHNIQUE: Noncontrast oblique coronal T2 fast spin echo with fat saturation, oblique sagittal T1 spin echo and T2 fast spin echo with fat saturation, axial T1 spin echo and T2 fast spin echo with fat saturation through the shoulder. COMPARISON: [facility] [place], CR, XR SHOULDER 2+ VIEWS LEFT, 10/14/2022, 14:51. [facility], MR, SHOULDER WITHOUT CONTRAST, 08/10/2012, 8:41. FINDINGS: Image quality: Excellent. Rotator cuff: There is moderate supraspinatus tendinosis with low-grade partial bursal surface tearing at the anterior insertion. Moderate infraspinatus tendinosis and low-grade partial intrasubstance tearing distally. The teres minor tendon is intact. There is moderate subscapularis tendinosis. The rotator cuff musculature is normal in bulk. Bones and bursae: No acute trabecular bone injury or fracture. Chronic traction cystic changes are seen at the posterosuperior humeral head and the greater and lesser tuberosities near the rotator cuff tendon insertions. There is a large area of full-thickness cartilage loss in the glenohumeral joint with subchondral cystic changes in the posterior glenoid and small marginal osteophytes. Moderate degenerative changes are seen at the acromioclavicular joint with subchondral cystic changes and marginal osteophytes permeation. There is trace subacromial/subdeltoid bursal fluid. Small glenohumeral effusion is seen with mild synovial hypertrophy. Capsule and soft tissues: There is diffuse labral degeneration and chronic degenerative tearing. There is partial intrasubstance tearing of the proximal biceps long head tendon superimposed on severe tendinosis. There is effacement of the fat signal in the rotator interval. The glenohumeral ligaments appear to be intact. IMPRESSION: 1. Diffuse moderate rotator cuff tendinosis. Focal low-grade partial bursal sided tearing is seen at the anterior supraspinatus tendon and there is focal low-grade partial intrasubstance tearing of the distal infraspinatus tendon. 2. Severe tendinosis of the proximal biceps long head tendon with superimposed partial intrasubstance tearing. 3. Full-thickness cartilage loss throughout the glenohumeral joint with subchondral cystic changes and marginal osteophyte formation. Diffuse labral degeneration and chronic degenerative tearing. 4. Moderate acromioclavicular joint osteoarthrosis. 5. Small glenohumeral effusion with mild synovial hypertrophy. Approved by: Anmol Martinez M.D. on 02/24/2023 at 10:24
== END ==
PROVIDERS: Family Provider Internal Medicine; PCP Internal Medicine; Referring Provider Orthopaedic Surgery; Visit Provider Orthopaedic Surgery
DX: M75.112 Incomplete rotator cuff tear or rupture of left shoulder, not specified as traumatic (principal); S46.112A Strain of muscle, fascia and tendon of long head of biceps, left arm, initial encounter; M19.012 Primary osteoarthritis, left shoulder; M25.412 Effusion, left shoulder; M67.212 Synovial hypertrophy, not elsewhere classified, left shoulder
CPT/HCPCS: 73221

== ENCOUNTER → 2023-04-11 11:36 | Outpatient (CLI) | payer MEDICARE, OTHER, SELFPAY ==
[2022-03-17 11:27] VITALS: BMI 25.4
[2023-04-11 12:50] LABS: Aspartate Aminotransferase 28 IU/L (17-59); BUN Creatinine Ratio 24.7 (6-22); Blood Urea Nitrogen 21 mg/dL (9-20); Calcium 10.4 mg/dL (8.4-10.2); Carbon Dioxide 29 mmol/L (22-32); Chloride 100 mmol/L (98-107); Cholesterol 291 mg/dL (140-199); Estimated Glomerular Filt Rate > 60 mL/min (>60); Glucose 92 mg/dL (80-110); HDL Cholesterol 81 mg/dL (40-60); HEMOLYSIS < 15 (0-50); LDL Cholesterol Calculated 181 mg/dL (<100); Potassium 4.4 mmol/L (3.4-5.1); Sodium 139 mmol/L (137-145); Triglycerides 146 mg/dL (35-150)
[2023-04-11 13:14] LABS: Prostate Specific Antigen 2.93 ng/mL (0.10-4.00)
== END ==
LOC: LAB 11:37
PROVIDERS: Family Provider Internal Medicine; PCP Internal Medicine; Referring Provider Internal Medicine; Visit Provider Internal Medicine
DX: R97.20 Elevated prostate specific antigen [PSA] (principal); E78.2 Mixed hyperlipidemia; I10 Essential (primary) hypertension
CPT/HCPCS: 36415; 80048; 80061; 84153; 84450

== ENCOUNTER → 2023-06-09 11:48 | Outpatient (CLI) | payer MEDICARE, OTHER, SELFPAY ==
[2022-03-17 11:27] VITALS: BMI 25.4
--- NOTE | 2023-06-09 11:50 | DI.MRI.S_ITS ---
PROCEDURE: MR LUMBAR SPINE WO CON INDICATIONS: Arthrodesis status TECHNIQUE: Noncontrast sagittal T1 spin echo and T2 fast echo, sagittal STIR, and T2 fast spin echo through the lumbar spine. In cases with scoliosis, additional coronal T2 fast spin echo may be performed. COMPARISON: [facility], CR, XR LUMBAR SPINE 2 OR 3VW, 10/06/2015, 15:43. [facility] [place], CR, XR LUMBAR SPINE 2 OR 3 VIEWS, 11/17/2020, 10:40. [facility], MR, MR LUMBAR SPINE WO CON, 01/17/2020, 13:01. FINDINGS: Image quality: Excellent. Alignment and Curvature: Interval posterior lateral chip and pedicle screw fixation at L3 through S1 with bilateral chip and pedicle screw fixation. There is now interbody spacer present at L3-L4, L4-L5, and L5-S1. Additionally, there is remote laminectomy involving the lamina of L2, L3, and L4. Trace retrolisthesis of L1 on L2 and L2 on L3 as before. Also present is trace retrolisthesis of L4 on L5, as before. Bone Marrow: Marrow is of normal overall signal. No acute vertebral body compression fractures. Spinal Cord: Conus medullaris terminates at the L1 level. Visualized cord demonstrates normal signal and size. Paraspinous Soft Tissues: No paravertebral masses. T12-L1: Chronic disc height loss. Disc bulge. Facet hypertrophy. No canal stenosis or foraminal stenosis. L1-L2: Chronic disc height loss. Trace retrolisthesis of L1 on L2. Unchanged findings. Bilateral lateral recess stenosis. No central canal stenosis. Bilateral facet hypertrophy. At least moderate left foraminal narrowing. L2-L3: Unchanged findings. Retrolisthesis of L2 on L3. Posterior decompression. Resolution of central canal stenosis. Bilateral lateral recess stenosis. Prominent facet hypertrophy. Moderate bilateral foraminal stenosis with flattening deformity on the exiting bilateral L2 nerve roots. L3-L4: Interval posterior lateral chip and pedicle screw fixation and possible partial facetectomies. Resolution of canal stenosis. No foraminal nerve root impingement. L4-L5: Interval posterior lateral fusion and probable right facetectomy. Resolution of canal stenosis. [id number] bilateral foraminal stenosis. L5-S1: Interval posterior lateral fusion. No canal stenosis. Question partial right facetectomy. There is a degree of bilateral foraminal stenosis. IMPRESSION: 1. Significant interval improvement post recent multilevel posterior lateral fusion and partial facetectomies. Resolution of central canal stenosis at L2-L3 and L3-L4, and L4-L5. 2. No identified unintended sequelae of most recent surgery. Dictated by: Hank Elder M.D. on 06/09/2023 at 16:52 Approved by: Hank Elder M.D. on 06/09/2023 at 17:07
== END ==
PROVIDERS: PCP Internal Medicine; Referring Provider Physical Medicine & Rehabilitation; Visit Provider Physical Medicine & Rehabilitation
DX: M48.062 Spinal stenosis, lumbar region with neurogenic claudication (principal); Z98.1 Arthrodesis status
CPT/HCPCS: 72148

== ENCOUNTER → 2023-06-30 11:17 | Outpatient (CLI) | payer MEDICARE, OTHER, SELFPAY ==
[2022-03-17 11:27] VITALS: BMI 25.4
[2023-06-30 13:17] LABS: Add Manual Diff / Slide Review NO; Basophils Absolute Auto 100 /uL (0-100); Basophils Percent Auto 0.7 % (0-2); Eosinophils Absolute Auto 100 /uL (0-450); Eosinophils Percent Auto 1.7 % (2-4); Hematocrit 47.2 % (41-53); Hemoglobin 15.7 g/dL (13.5-17.5); Lymphocytes Absolute Auto 2200 /uL (1100-4500); Lymphocytes Percent Auto 26.6 % (25-40); Mean Corpuscular HGB Conc 33.3 % (30-36); Mean Corpuscular Hemoglobin 28.3 PG (26-34); Mean Corpuscular Volume 85.1 fL (80-100); Monocytes Absolute Auto 600 /uL (0-900); Monocytes Percent Auto 7.4 % (3-14); Neutrophils Absolute Auto 5100 /uL (1500-7000); Neutrophils Percent Auto 63.6 % (50-75); Platelet Count 208 X10^3/uL (150-400); Red Blood Cell Count 5.54 X10^6/uL (4.5-5.9); Red Cell Distribution Width 14.4 % (11.6-14.8); White Blood Cell Count 8.1 X10^3/uL (4.5-11.0)
[2023-06-30 13:41] LABS: Alanine Aminotransferase 23 IU/L (<50); Albumin 4.5 g/dL (3.5-5.0); Albumin Globulin Ratio 1.3 (1.0-2.8); Alkaline Phosphatase 79 U/L (38-126); Aspartate Aminotransferase 29 IU/L (17-59); BUN Creatinine Ratio 20.9 (6-22); Bilirubin Total 1.2 mg/dL (0.2-1.3); Blood Urea Nitrogen 18 mg/dL (9-20); Calcium 10.2 mg/dL (8.4-10.2); Carbon Dioxide 31 mmol/L (22-32); Chloride 101 mmol/L (98-107); Estimated Glomerular Filt Rate > 60 mL/min (>60); Globulin 3.4 g/dL (1.7-4.1); Glucose 83 mg/dL (80-110); HEMOLYSIS < 15 (0-50); Potassium 4.2 mmol/L (3.4-5.1); Sodium 137 mmol/L (137-145); Total Protein 7.9 g/dL (6.3-8.2)
[2023-07-04 14:38] LABS: QuantiFERON Mitogen Value >10.00 IU/mL (.); QuantiFERON Nil Value 0.01 IU/mL (.); QuantiFERON TB Gold Plus Negative (Negative); QuantiFERON TB1 Ag Value 0.01 IU/mL (.); QuantiFERON TB2 Ag Value 0.01 IU/mL (.)
== END ==
LOC: LAB 11:18
PROVIDERS: PCP Internal Medicine; Referring Provider Physician Assistant; Visit Provider Physician Assistant
DX: L40.0 Psoriasis vulgaris (principal)
CPT/HCPCS: 80053; 85025; 86480

== ENCOUNTER → 2023-07-11 11:17 | Outpatient (CLI) | payer MEDICARE, OTHER, SELFPAY ==
[2022-03-17 11:27] VITALS: BMI 25.4
[2023-07-11 12:35] LABS: Aspartate Aminotransferase 30 IU/L (17-59); Cholesterol 170 mg/dL (140-199); HDL Cholesterol 68 mg/dL (40-60); LDL Cholesterol Calculated 66 mg/dL (<100); Triglycerides 182 mg/dL (35-150)
== END ==
LOC: LAB 11:18
PROVIDERS: PCP Internal Medicine; Referring Provider Internal Medicine; Visit Provider Internal Medicine
DX: E78.2 Mixed hyperlipidemia (principal)
CPT/HCPCS: 36415; 80061; 84450

== ENCOUNTER → 2023-10-20 11:52 | Outpatient (CLI) | payer MEDICARE, OTHER, SELFPAY ==
[2023-10-10 11:13] VITALS: BMI 25.4
--- NOTE | 2023-10-20 11:54 | DI.MG.S_ITS ---
MALE BILATERAL DIGITAL DIAGNOSTIC MAMMOGRAM 3D/2D: 10/20/2023 CLINICAL: Right breast mass and pain. No prior exams were available for comparison. There is gynecomastia in both breasts that correlates with clinical concern and palpable abnormality in the right breast as denoted by triangle skin marker. There are post surgical changes of the left breast. Moderate right and mild left gynecomastia. No significant masses, calcifications, or other findings are seen in either breast. IMPRESSION: BENIGN There is no mammographic evidence of malignancy. Bilateral gynecomastia with right breast findings correlating with area of clinical/palpable concern. Recommend clinical follow up for persistent or worsening symptoms, or development of any clinically suspicious findings. Findings and recommendations were conveyed to the patient during today's evaluation. This exam was interpreted at Station ID: [id number]. NOTE: For mammograms, a report in lay terms will be sent to the patient. Approximately 15% of breast malignancies will not be visualized mammographically. In the management of a palpable breast mass, a negative mammogram must not discourage biopsy of a clinically suspicious lesion. Electronically Signed By: Freddie Zuniga M.D. at/:10/20/2023 13:33:45 letter sent: Male Normal Exam ACR BI-RADS Category 2: Benign Finding(s) 3342F
== END ==
PROVIDERS: PCP Internal Medicine; Referring Provider Internal Medicine; Visit Provider Internal Medicine
DX: N62 Hypertrophy of breast (principal); N63.41 Unspecified lump in right breast, subareolar
CPT/HCPCS: 77066; G0279

== ENCOUNTER 2024-02-14 15:04 | Inpatient (IN) | payer MEDICARE, OTHER, SELFPAY ==
[2023-10-10 11:13] VITALS: BMI 25.4
[2024-02-14] VITALS (133 sets, daily range): BP systolic 68–148; BP diastolic 38–80; PULSE 92–140; RESP 22–46; TEMP 36.2–40.1; O2SAT 87–98; BMI 25.8; BMI 26.3
--- NOTE | 2024-02-14 15:25 | EKG_ITS ---
[address] [address] Test Date: 2024-02-14 Pat Name: Hugo Perkins Department: Room: Gender: Male Utility Bill Complaints Investigator: NOLVIA : [id number] Requested By: Order Number: [id number] Reading MD: Sudhir Bailey MD Measurements Intervals [place] Rate: 132 P: NM: 104 QRS: -20 QRSD: 142 T: -6 QT: 382 QTc: 565 Interpretive Statements Sinus tachycardia with short NM Right bundle branch block NO PRIOR TRACING Electronically Signed On 02-15-2024 7:30:49 PST by Sudhir Bailey MD
--- NOTE | 2024-02-14 15:25 | DI.RAD.S_ITS ---
PROCEDURE: XR CHEST 1V INDICATIONS: altered mental status TECHNIQUE: One view of the chest was acquired. COMPARISON: None. FINDINGS: Surgical changes and devices: None. Lungs and pleura: Low lung volumes. No dense airspace disease or pleural effusions. Mediastinum: Heart size is at the upper limit of normal. Bones and chest wall: There are degenerative changes. IMPRESSION: Limited single view radiograph with low lung volumes. No acute abnormality. Dictated by: David Peterson M.D. on 02/14/2024 at 16:10 Approved by: David Peterson M.D. on 02/14/2024 at 16:11
[2024-02-14 15:42] LABS: Add Manual Diff / Slide Review NO; Basophils Absolute Auto 0 /uL (0-100); Basophils Percent Auto 0.3 % (0-2); Eosinophils Absolute Auto 0 /uL (0-450); Eosinophils Percent Auto 0.2 % (2-4); Hematocrit 44.2 % (41-53); Lymphocytes Absolute Auto 300 /uL (1100-4500); Lymphocytes Percent Auto 5.1 % (25-40); Mean Corpuscular Hemoglobin 28.2 PG (26-34); Mean Corpuscular Volume 82.9 fL (80-100); Monocytes Absolute Auto 100 /uL (0-900); Monocytes Percent Auto 1.3 % (3-14); Neutrophils Absolute Auto 5600 /uL (1500-7000); Neutrophils Percent Auto 93.1 % (50-75); Platelet Count 212 X10^3/uL (150-400); Red Blood Cell Count 5.33 X10^6/uL (4.5-5.9); Red Cell Distribution Width 13.2 % (11.6-14.8)
--- NOTE | 2024-02-14 15:49 | ED.GENADULT ---
HPI - General Adult General Chief complaint: Altered Mental Status Stated complaint: cold symptoms, positive for covid today Time Seen by Provider: 02/14/24 15:36 Source: patient Mode of arrival: Ambulatory History of Present Illness HPI narrative: Patient tested positive for COVID today according to . He has not felt well for the past 2-3 days. He does drink alcohol. Last drink about 2 days ago. No seizures. No hallucinations. Rectal temp 104.2?. Oral ibuprofen 800 mg and IV Tylenol 1000 mg ordered. Patient is awake alert oriented x4. He is restless though. Denies any chest pain or shortness of breath. Denies any headache. No cough cold or congestion. Related Data Home Medications Medication Instructions Recorded Confirmed amlodipine 5 mg tablet 5 mg PO BID 02/14/24 02/14/24 atorvastatin 40 mg tablet 40 mg PO DAILY 02/14/24 02/14/24 betamethasone dipropionate 0.05 % 1 applic topical DAILY 02/14/24 02/14/24 topical cream dextroamphetamine sulfate 10 mg 10 mg PO BID 02/14/24 02/14/24 tablet hydrocodone 5 mg-acetaminophen 325 1 tab PO BID PRN Pain (Scale Score 02/14/24 02/14/24 mg tablet 4-6) lorazepam 0.5 mg tablet 0.5 mg PO PRN PRN Anxiety 02/14/24 02/14/24 losartan 50 mg tablet 50 mg PO DAILY 02/14/24 02/14/24 meloxicam 15 mg tablet 15 mg PO DAILY 02/14/24 02/14/24 sertraline 50 mg tablet 50 mg PO DAILY 02/14/24 02/14/24 Allergies Allergy/AdvReac Type Severity Reaction Status Date / Time duloxetine AdvReac Mild Night Verified 01/10/24 10:33 sweats, sexual dysfunction tamsulosin AdvReac Mild erectile Verified 01/10/24 10:33 dysfunction Review of Systems Review of Systems Narrative: GENERAL: Positive chills, fatigue, malaise, fever, sweats. HEENT: Negative sinus pain, ear pain, sore throat RESPIRATORY: Negative dyspnea, cough CARDIOVASCULAR: Negative chest pain, palpitations GASTROINTESTINAL: Negative nausea, vomiting, abdominal pain : Negative dysuria, frequency, hematuria MUSCULOSKELETAL: Negative muscle or bony pain SKIN: Negative rash, skin lesions NEUROLOGIC: Negative weakness, numbness ROS Unobtainable: All systems reviewed & are unremarkable except as noted in HPI and below Patient History Medical History Breast mass, right Gynecomastia Depression, major Rising PSA level BPH w urinary obs/LUTS History of colonic polyps Right cervical radiculopathy Psoriatic arthritis Mixed hyperlipidemia Essential hypertension Attention deficit disorder predominant inattentive type Chronic, continuous use of opioids Primary osteoarthritis involving multiple joints Back pain, chronic Macular pucker, left eye Cataracts, bilateral Post-nasal drip Spondylolisthesis, lumbar region Spinal stenosis, lumbar region without neurogenic claudication Postlaminectomy syndrome, not elsewhere classified History of Mohs micrographic surgery for skin cancer (2019) Psoriasis Postlaminectomy syndrome Spinal stenosis Arthritis Acid reflux Hx of Prinzmetal angina (~1999) Hearing impaired Sciatica Osteoarthritis Hyperlipidemia Surgical History Anesthesia History of eye surgery S/P excision of lipoma (05/2016) Hx of parotidectomy (1960) History of back surgery (~2002) Hx of laminectomy (~2008) Hx of tonsillectomy History of surgery (10/2019) History of phacoemulsification of cataract of left eye with intraocular lens implantation Family History Father Cancer Mother Cancer Grandfather Cancer Grandmother Cancer Social History marital status: household members: spouse lives independently: Yes occupational status: previously employed Smoking Status: Former smoker alcohol intake: current substance use type: does not use Smoking Status: Former smoker alcohol intake frequency: 3 or more drinks per day Substance Use Type: marijuana Exam Narrative Exam Narrative: GENERAL: in no distress, not toxic not dyspneic HEAD: Normocephalic. EYES: Pupils equal round ENT: Mucous membranes moist. NECK: Trachea midline. Full active range of motion no meningeal signs no nuchal rigidity CARDIOVASCULAR: Regular rate and rhythm, tachycardic RESPIRATORY: Clear to auscultation. Breath sounds equal bilaterally. No wheezes, rales, or rhonchi. GASTROINTESTINAL: Abdomen soft, non-tender EXTREMITIES: No gross deformities. BACK: No flank tenderness. NEURO: AOx4. Clear speech moving all 4 extremities. No seizures. Denies any headache SKIN: Warm and dry PSYCH: Is anxious, is cooperative, needs redirecting. Denies any headache. Initial Vital Signs Initial Vital Signs: Vital Signs Temperature 99.9 F H 02/14/24 15:08 Pulse Rate 138 H 02/14/24 15:08 Respiratory Rate 30 H 02/14/24 15:08 Blood Pressure 146/72 H 02/14/24 15:08 Pulse Oximetry 94 02/14/24 15:08 Oxygen Delivery Method Room Air 02/14/24 15:08 Course Orders Ordered: Discontinued Medications Acetaminophen (Acetaminophen 325 Mg Tablet) 650 mg PO Q6H PRN PRN Reason: Fever/Mild Pain (1-3) Albuterol (Albuterol 2.5 Mg/3 Ml Neb (Adult)) 2.5 mg INH [id number] PRN PRN Reason: Shortness Of Breath Last Admin: 02/16/24 12:00 Dose: 2.5 mg Documented By: Admin: 02/16/24 11:51 Dose: 2.5 mg Documented By: Admin: 02/15/24 13:35 Dose: 2.5 mg Documented By: Admin: 02/15/24 08:35 Dose: 2.5 mg Documented By: ROOSEVELT Bumetanide (Bumetanide 1 Mg/4 Ml Vial) 4 mg IV NOW ONE Stop: 02/16/24 05:48 Last Admin: 02/16/24 05:57 Dose: 4 mg Documented By: PJ Chlorhexidine Gluconate (Chlorhexidine Gluconate 15 Ml Cup) 15 ml PO Q6HR [facility] Last Admin: 02/16/24 13:04 Dose: Not Given Documented By: CARINA Dexamethasone (Dexamethasone 10 Mg/Ml Vial) 6 mg IV DAILY [facility] Last Admin: 02/16/24 08:50 Dose: 6 mg Documented By: Admin: 02/15/24 09:32 Dose: 6 mg Documented By: Admin: 02/14/24 18:50 Dose: 6 mg Documented By: Enoxaparin Sodium (Enoxaparin 40 Mg/0.4 Ml Syringe) 40 mg SUBCUT DAILY [facility] Last Admin: 02/16/24 08:51 Dose: 40 mg Documented By: Admin: 02/15/24 09:31 Dose: 40 mg Documented By: MS Famotidine (Famotidine 20 Mg/2 Ml Vial) 20 mg IV BID [facility] Last Admin: 02/16/24 08:50 Dose: 20 mg Documented By: Admin: 02/15/24 21:01 Dose: 20 mg Documented By: Admin: 02/15/24 10:28 Dose: 20 mg Documented By: Admin: 02/14/24 20:08 Dose: 20 mg Documented By: LANCE Fentanyl (Fentanyl 25 Mcg/Patch) 25 mcg TOP Q72H [facility] Last Admin: 02/15/24 08:51 Dose: 25 mcg Documented By: MS Folic Acid (Folic Acid 1 Mg Tablet) 1 mg PO DAILY [facility] Last Admin: 02/14/24 16:03 Dose: 1 mg Documented By: RB Folic Acid (Folic Acid 1 Mg Tablet) 1 mg PO DAILY [facility] Last Admin: 02/15/24 10:26 Dose: Not Given Documented By: MS Furosemide (Furosemide 40 Mg/4 Ml Vial) 40 mg IV NOW ONE Stop: 02/15/24 11:27 Last Admin: 02/15/24 11:35 Dose: 40 mg Documented By: MS Furosemide (Furosemide 40 Mg/4 Ml Vial) 40 mg IV NOW ONE Stop: 02/16/24 12:11 Last Admin: 02/16/24 12:19 Dose: 40 mg Documented By: CARINA Haloperidol (Haloperidol 5 Mg/Ml Vial) 5 mg IV Q1HR PRN PRN Reason: Hallucinations Last Admin: 02/15/24 11:27 Dose: 5 mg Documented By: Admin: 02/15/24 09:51 Dose: 5 mg Documented By: Admin: 02/15/24 08:51 Dose: 5 mg Documented By: Admin: 02/15/24 06:43 Dose: 5 mg Documented By: Admin: 02/15/24 01:50 Dose: 5 mg Documented By: Admin: 02/14/24 20:13 Dose: 5 mg Documented By: LANCE Heparin Sodium (Porcine) (Heparin Flush (Cl/Picc/Mid-Line) 50 Unit/5 Ml Syringe) 50 unit IV PRN PRN PRN Reason: Flush Last Admin: 02/15/24 16:39 Dose: 50 unit Documented By: Hydromorphone HCl (Hydromorphone 1 Mg Inj) 1 mg IV NOW ONE Stop: 02/14/24 16:31 Last Admin: 02/14/24 16:34 Dose: 1 mg Documented By: RB Hydromorphone HCl (Hydromorphone 0.5 Mg Inj) 0.5 mg IV Q2H PRN PRN Reason: Pain, Severe (7-10) Last Admin: 02/15/24 11:26 Dose: 0.5 mg Documented By: Admin: 02/15/24 06:57 Dose: 0.5 mg Documented By: RL Hydromorphone HCl (Hydromorphone 0.5 Mg Inj) 1 mg IV Q1HR PRN PRN Reason: Pain, Severe (7-10) Last Admin: 02/16/24 11:07 Dose: 1 mg Documented By: Admin: 02/16/24 07:54 Dose: 1 mg Documented By: Admin: 02/16/24 04:46 Dose: 1 mg Documented By: Admin: 02/15/24 23:46 Dose: 1 mg Documented By: Admin: 02/15/24 21:53 Dose: 1 mg Documented By: Admin: 02/15/24 20:06 Dose: 1 mg Documented By: Admin: 02/15/24 16:38 Dose: 1 mg Documented By: Acetaminophen (Ofirmev) 1,000 mg in 100 mls @ 400 mls/hr IV NOW ONE Stop: 02/14/24 16:06 Last Infusion: 02/14/24 16:34 Dose: Infused Documented By: Admin: 02/14/24 16:02 Dose: 400 mls/hr Documented By: RB Sodium Chloride (Normal Saline 0.9%) 1,000 mls @ 1,000 mls/hr IV BOLUS ONE Stop: 02/14/24 17:48 Last Infusion: 02/14/24 18:52 Dose: Infused Documented By: Infusion: 02/14/24 17:30 Dose: 799 mls/hr Documented By: Infusion: 02/14/24 17:16 Dose: 0 mls/hr Documented By: Admin: 02/14/24 17:00 Dose: 1,000 mls/hr Documented By: RB dexmedeTOMIDine in 0.9 % NaCL (Precedex) 400 mcg in 100 mls @ 3.856 mls/hr IV TITRATE SAMUEL; Protocol Last Titration: 02/15/24 17:26 Dose: Infused Documented By: Admin: 02/15/24 13:58 Dose: 1.5 mcg/kg/hr, 28.917 mls/hr Documented By: Titration: 02/15/24 13:58 Dose: Infused Documented By: Admin: 02/15/24 10:40 Dose: 1.5 mcg/kg/hr, 28.917 mls/hr Documented By: Titration: 02/15/24 10:11 Dose: Infused Documented By: Admin: 02/15/24 06:43 Dose: 1.5 mcg/kg/hr, 28.917 mls/hr Documented By: Titration: 02/15/24 06:43 Dose: Infused Documented By: Admin: 02/15/24 03:41 Dose: 1.5 mcg/kg/hr, 28.917 mls/hr Documented By: Titration: 02/15/24 03:41 Dose: Infused Documented By: Admin: 02/15/24 00:32 Dose: 1.5 mcg/kg/hr, 28.917 mls/hr Documented By: Titration: 02/15/24 00:26 Dose: Infused Documented By: Titration: 02/14/24 22:45 Dose: 1.5 mcg/kg/hr, 28.917 mls/hr Documented By: Titration: 02/14/24 22:33 Dose: 1.3 mcg/kg/hr, 25.061 mls/hr Documented By: Admin: 02/14/24 20:56 Dose: 1.5 mcg/kg/hr, 28.917 mls/hr Documented By: Titration: 02/14/24 20:56 Dose: Infused Documented By: Titration: 02/14/24 20:05 Dose: 1.5 mcg/kg/hr, 28.917 mls/hr Documented By: Titration: 02/14/24 19:54 Dose: 1.3 mcg/kg/hr, 25.061 mls/hr Documented By: Titration: 02/14/24 19:45 Dose: 1.1 mcg/kg/hr, 21.2 mls/hr Documented By: Titration: 02/14/24 17:57 Dose: 0.4 mcg/kg/hr, 7.711 mls/hr Documented By: Titration: 02/14/24 17:47 Dose: 0.3 mcg/kg/hr, 5.783 mls/hr Documented By: Titration: 02/14/24 17:25 Dose: 0.2 mcg/kg/hr, 3.9 mls/hr Documented By: Admin: 02/14/24 17:15 Dose: 1 mcg/kg/hr, 19.278 mls/hr Documented By: RB Ceftriaxone Sodium 2,000 mg/ (Sodium Chloride) 100 mls @ 200 mls/hr IV NOW ONE Stop: 02/14/24 16:53 Last Infusion: 02/14/24 18:26 Dose: Infused Documented By: Admin: 02/14/24 17:38 Dose: 200 mls/hr Documented By: RB Sodium Chloride (Normal Saline 0.9%) 1,000 mls @ 100 mls/hr IV CONT SAMUEL Last Infusion: 02/15/24 09:55 Dose: 0 mls/hr Documented By: Admin: 02/15/24 03:28 Dose: 100 mls/hr Documented By: Infusion: 02/15/24 03:28 Dose: Infused Documented By: Admin: 02/14/24 18:47 Dose: 100 mls/hr Documented By: MS Cefepime HCl 2 gm/ Sodium (Chloride) 100 mls @ 200 mls/hr IV Q12H [facility] Last Infusion: 02/16/24 11:06 Dose: Infused Documented By: Admin: 02/16/24 06:50 Dose: 200 mls/hr Documented By: Infusion: 02/15/24 21:01 Dose: Infused Documented By: Admin: 02/15/24 19:45 Dose: 200 mls/hr Documented By: Infusion: 02/15/24 09:27 Dose: Infused Documented By: Admin: 02/15/24 06:50 Dose: 200 mls/hr Documented By: Infusion: 02/14/24 20:08 Dose: Infused Documented By: Admin: 02/14/24 18:50 Dose: 200 mls/hr Documented By: MS Sodium Chloride (Normal Saline 0.9%) 1,000 mls @ 1,000 mls/hr IV BOLUS ONE Stop: 02/14/24 19:39 Last Infusion: 02/14/24 18:48 Dose: 0 mls/hr Documented By: Admin: 02/14/24 18:48 Dose: 1,000 mls/hr Documented By: MS Acetaminophen (Ofirmev) 1,000 mg in 100 mls @ 400 mls/hr IV Q6H PRN PRN Reason: Fever/Mild Pain (1-3) Last Infusion: 02/16/24 01:29 Dose: Infused Documented By: Admin: 02/16/24 01:10 Dose: 400 mls/hr Documented By: SMS Vancomycin HCl/Dextrose (Vancomycin) 1,500 mg in 300 mls @ 200 mls/hr IV Q24H [facility]EL Last Infusion: 02/16/24 00:53 Dose: Infused Documented By: Admin: 02/15/24 22:19 Dose: 200 mls/hr Documented By: Infusion: 02/14/24 21:38 Dose: Infused Documented By: Admin: 02/14/24 20:08 Dose: 200 mls/hr Documented By: LANCE NOREPINEPHRINE BITARTRATE/D5W (Levophed) 4 mg in 250 mls @ 28.917 mls/hr IV TITRATE [facility]; Protocol Last Titration: 02/15/24 23:37 Dose: 0.1 mcg/kg/min, 28.917 mls/hr Documented By: Titration: 02/15/24 19:13 Dose: 0.12 mcg/kg/min, 34.7 mls/hr Documented By: Admin: 02/15/24 18:09 Dose: 0.15 mcg/kg/min, 43.375 mls/hr Documented By: Titration: 02/15/24 18:09 Dose: Infused Documented By: Admin: 02/15/24 12:42 Dose: 0.15 mcg/kg/min, 43.375 mls/hr Documented By: Titration: 02/15/24 12:40 Dose: Infused Documented By: Admin: 02/15/24 06:54 Dose: 0.15 mcg/kg/min, 43.375 mls/hr Documented By: Titration: 02/15/24 06:54 Dose: Infused Documented By: Admin: 02/15/24 01:48 Dose: 0.15 mcg/kg/min, 43.375 mls/hr Documented By: Titration: 02/15/24 01:48 Dose: Infused Documented By: Titration: 02/14/24 22:51 Dose: 0.15 mcg/kg/min, 43.375 mls/hr Documented By: Titration: 02/14/24 22:16 Dose: 0.2 mcg/kg/min, 57.833 mls/hr Documented By: Admin: 02/14/24 19:30 Dose: 0.1 mcg/kg/min, 28.917 mls/hr Documented By: RL Multivitamins 10 ml/ Folic Acid 1 mg/ Thiamine HCl 100 mg / Sodium Chloride 1,011.2 mls @ 100 mls/hr IV DAILY SAMUEL Last Infusion: 02/16/24 11:06 Dose: 0 mls/hr Documented By: Admin: 02/16/24 08:51 Dose: 100 mls/hr Documented By: Infusion: 02/16/24 06:26 Dose: Infused Documented By: Infusion: 02/15/24 11:30 Dose: 50 mls/hr Documented By: Admin: 02/15/24 10:23 Dose: 100 mls/hr Documented By: POTASSIUM CHLORIDE IN WATER (Potassium Cl 10 Meq/100 Ml Ashley) 10 meq in 100 mls @ 100 mls/hr IV Q1H SAMUEL; Protocol Stop: 02/15/24 12:59 Last Infusion: 02/15/24 12:49 Dose: Infused Documented By: Admin: 02/15/24 11:49 Dose: 100 mls/hr Documented By: Infusion: 02/15/24 11:49 Dose: Infused Documented By: Admin: 02/15/24 11:10 Dose: 100 mls/hr Documented By: MS Albumin Human (Albuminar) 25 gm in 100 mls @ 60 mls/hr IV Q4HR [facility]UEL Stop: 02/15/24 15:59 Last Infusion: 02/15/24 15:40 Dose: Infused Documented By: Admin: 02/15/24 13:59 Dose: 60 mls/hr Documented By: Furosemide 60 mg/ Sodium (Chloride) 56 mls @ 112 mls/hr IV NOW ONE Stop: 02/15/24 14:32 Last Infusion: 02/15/24 23:07 Dose: Infused Documented By: Admin: 02/15/24 15:17 Dose: 112 mls/hr Documented By: Dexmedetomidine HCl 800 mcg/ (Sodium Chloride) 108 mls @ 2.12 mls/hr IV TITRATE SAMUEL; Protocol Last Titration: 02/16/24 10:45 Dose: 0 mcg/kg/hr, 0 mls/hr Documented By: Titration: 02/16/24 05:39 Dose: 0.2 mcg/kg/hr, 2.12 mls/hr Documented By: Titration: 02/16/24 05:00 Dose: 0.3 mcg/kg/hr, 3.179 mls/hr Documented By: Titration: 02/16/24 00:55 Dose: 0.2 mcg/kg/hr, 2.12 mls/hr Documented By: Titration: 02/16/24 00:23 Dose: 0.3 mcg/kg/hr, 3.179 mls/hr Documented By: Titration: 02/15/24 21:12 Dose: 0.4 mcg/kg/hr, 4.239 mls/hr Documented By: Titration: 02/15/24 20:00 Dose: 0.3 mcg/kg/hr, 3.179 mls/hr Documented By: Admin: 02/15/24 17:38 Dose: 0.2 mcg/kg/hr, 2.12 mls/hr Documented By: Norepinephrine Bitartrate 8 mg (/ Dextrose) 258 mls @ 15.19 mls/hr IV TITRATE SAMUEL; Protocol Last Titration: 02/16/24 08:41 Dose: 0.1 mcg/kg/min, 15.19 mls/hr Documented By: Titration: 02/16/24 01:34 Dose: 0.12 mcg/kg/min, 18.228 mls/hr Documented By: Admin: 02/16/24 00:53 Dose: 0.1 mcg/kg/min, 15.19 mls/hr Documented By: PJ Magnesium Sulfate (Magnesium Sulfate) 2 gm in 50 mls @ 25 mls/hr IV NOW ONE Stop: 02/15/24 20:27 Last Infusion: 02/15/24 21:47 Dose: Infused Documented By: PJ Co-signed By: SHILPI Admin: 02/15/24 19:45 Dose: 25 mls/hr Documented By: PJ Co-signed By: SHILPI Metronidazole (Flagyl) 500 mg in 100 mls @ 100 mls/hr IV Q6H [facility]UEL Metronidazole (Flagyl) 500 mg in 100 mls @ 100 mls/hr IV Q6H [facility] Last Infusion: 02/16/24 11:06 Dose: Infused Documented By: Admin: 02/16/24 07:52 Dose: 100 mls/hr Documented By: Infusion: 02/16/24 04:46 Dose: Infused Documented By: Admin: 02/16/24 02:29 Dose: 100 mls/hr Documented By: Infusion: 02/15/24 22:19 Dose: Infused Documented By: Admin: 02/15/24 21:01 Dose: 100 mls/hr Documented By: SMS Dextrose/Sodium Chloride (Dextrose 5%-0.9% Ns) 1,000 mls @ 100 mls/hr IV CONT SAMUEL Last Admin: 02/16/24 11:10 Dose: Not Given Documented By: CW Piperacillin Sod/Tazobactam (Sod 4.5 gm/ Sodium Chloride) 100 mls @ 200 mls/hr IV NOW ONE Stop: 02/16/24 09:52 Last Infusion: 02/16/24 11:07 Dose: Infused Documented By: Admin: 02/16/24 10:06 Dose: 200 mls/hr Documented By: CW Linezolid (Zyvox) 600 mg in 300 mls @ 600 mls/hr IV NOW ONE Stop: 02/16/24 10:21 Last Infusion: 02/16/24 11:07 Dose: Infused Documented By: Admin: 02/16/24 10:07 Dose: 600 mls/hr Documented By: CW Propofol (Propofol) 1,000 mg in 100 mls @ 2.355 mls/hr IV TITRATE SAMUEL; Protocol Last Titration: 02/16/24 11:17 Dose: 15 mcg/kg/min, 7.065 mls/hr Documented By: Titration: 02/16/24 10:50 Dose: 10 mcg/kg/min, 4.71 mls/hr Documented By: Admin: 02/16/24 10:41 Dose: 5 mcg/kg/min, 2.355 mls/hr Documented By: SAMUEL Ibuprofen (Ibuprofen 400 Mg Tablet) 800 mg PO NOW ONE Stop: 02/14/24 15:53 Last Admin: 02/14/24 16:02 Dose: 800 mg Documented By: RB Lidocaine HCl (Lidocaine 2% (Glydo) 6 Ml Gel) 6 ml TOP NOW ONE Stop: 02/14/24 16:11 Last Admin: 02/14/24 16:12 Dose: 6 ml Documented By: RB Lorazepam (Lorazepam 2 Mg/Ml Inj) 0 mg IV CIWAPRN PRN; Protocol PRN Reason: Alcohol Withdrawal Last Admin: 02/14/24 18:46 Dose: 2 mg Documented By: Admin: 02/14/24 16:02 Dose: 2 mg Documented By: RB Lorazepam (Lorazepam 2 Mg/Ml Inj) 0 mg IV CIWAPRN PRN; Protocol PRN Reason: Alcohol Withdrawal Last Admin: 02/14/24 20:07 Dose: 2 mg Documented By: RL Multivitamins (Multivitamin 1 Tablet) 1 tab PO DAILY [facility] Last Admin: 02/14/24 16:02 Dose: 1 tab Documented By: RB Multivitamins (Multivitamin 1 Tablet) 1 tab PO DAILY [facility] Last Admin: 02/15/24 10:25 Dose: Not Given Documented By: MS Naloxone HCl (Naloxone 0.4 Mg/Ml Vial) 0.2 mg IV Q2MIN PRN PRN Reason: Opiate Reversal Nitroglycerin (Nitroglycerin Oint 1 Inch/Gm Oint...G.) 1 inch TOP Q8H [facility] Last Admin: 02/15/24 15:39 Dose: Not Given Documented By: MS Nitroglycerin (Nitroglycerin Oint 1 Inch/Gm Oint...G.) 1 inch TOP Q8H [facility] Last Admin: 02/16/24 07:52 Dose: 1 inch Documented By: Admin: 02/15/24 23:45 Dose: 1 inch Documented By: Admin: 02/15/24 16:10 Dose: 1 inch Documented By: MS Phenobarbital (Phenobarbital 65 Mg/Ml Vial) 260 mg IV NOW ONE Stop: 02/14/24 16:36 Last Admin: 02/14/24 16:39 Dose: 260 mg Documented By: RB Phenobarbital Sodium (Phenobarbital 130 Mg/Ml Vial) 260 mg IV NOW ONE Stop: 02/15/24 10:01 Last Admin: 02/15/24 10:01 Dose: 260 mg Documented By: MS Phenobarbital Sodium (Phenobarbital 130 Mg/Ml Vial) 130 mg IV Q3H PRN PRN Reason: Agitation Propofol (Propofol 200 Mg/20 Ml Vial) 100 mg IV NOW ONE Stop: 02/16/24 10:39 Last Admin: 02/16/24 10:38 Dose: 100 mg Documented By: SAMUEL Succinylcholine Chloride (Succinylcholine 200 Mg/10 Ml Vial) 120 mg IV NOW ONE Stop: 02/16/24 10:39 Last Admin: 02/16/24 10:38 Dose: 120 mg Documented By: SAMUEL Thiamine HCl (Thiamine 100 Mg Tablet) 100 mg PO DAILY [facility]EL Stop: 02/17/24 09:01 Last Admin: 02/14/24 16:03 Dose: 100 mg Documented By: RB Thiamine HCl (Thiamine 100 Mg Tablet) 100 mg PO DAILY [facility] Stop: 02/18/24 09:01 Last Admin: 02/15/24 10:25 Dose: Not Given Documented By: MS Vancomycin HCl (Vancomycin Per Pharmacy) 1 request MIS PRN PRN PRN Reason: PROTOCOL Vancomycin HCl (Vancomycin Trough) 1 request MIS 193 [facility] Stop: 02/17/24 19:31 Vancomycin HCl (Vancomycin Peak) 1 [place] [facility] [facility] [place] [facility] Stop: 02/17/24 22:31 Vital Signs Vital signs: Vital Signs - 8 hr 02/14/24 15:08 02/14/24 15:25 02/14/24 15:30 Temperature 99.9 F H Pulse Rate 138 H 130 H 129 H Respiratory Rate 30 H 34 H 29 H Blood Pressure 146/72 H Pulse Oximetry 94 Oxygen Delivery Method Room Air 02/14/24 15:39 02/14/24 15:44 02/14/24 15:44 Temperature 104.2 F H Pulse Rate 135 H Respiratory Rate 38 H Blood Pressure 137/68 Pulse Oximetry 96 Oxygen Delivery Method 02/14/24 15:50 02/14/24 15:50 02/14/24 16:00 Temperature Pulse Rate 135 H 139 H Respiratory Rate 39 H 41 H Blood Pressure 138/63 Pulse Oximetry 97 95 Oxygen Delivery Method 02/14/24 16:01 02/14/24 16:01 02/14/24 16:02 Temperature 104.2 F H Pulse Rate 140 H Respiratory Rate 44 H Blood Pressure 144/78 H Pulse Oximetry 97 Oxygen Delivery Method 02/14/24 16:10 02/14/24 16:10 02/14/24 16:20 Temperature 97.2 F L Pulse Rate 135 H 132 H Respiratory Rate 39 H 36 H Blood Pressure 148/80 H Pulse Oximetry 98 95 Oxygen Delivery Method 02/14/24 16:20 02/14/24 16:30 02/14/24 16:30 Temperature 102.0 F H Pulse Rate 134 H Respiratory Rate 46 H Blood Pressure 148/70 H 146/73 H Pulse Oximetry 94 Oxygen Delivery Method 02/14/24 16:32 02/14/24 16:34 02/14/24 16:41 Temperature 102.7 F H 102.7 F H Pulse Rate Respiratory Rate Blood Pressure 137/64 Pulse Oximetry Oxygen Delivery Method 02/14/24 16:41 02/14/24 16:45 02/14/24 16:50 Temperature 103.5 F H 103.6 F H 103.6 F H Pulse Rate 133 H 128 H 124 H Respiratory Rate 30 H 31 H 31 H Blood Pressure Pulse Oximetry 93 90 L 90 L Oxygen Delivery Method 02/14/24 16:50 02/14/24 16:55 Temperature 103.6 F H Pulse Rate 122 H Respiratory Rate 29 H Blood Pressure 122/62 Pulse Oximetry 90 L Oxygen Delivery Method Medical Decision Making Lab Data 02/16/24 11:30 02/16/24 11:30 Labs: Lab Results 02/14/24 02/14/24 02/14/24 Range/Units 15:30 15:47 16:25 WBC 6.0 (4.5-11.0) X10^3/uL RBC 5.33 (4.5-5.9) X10^6/uL Hgb 15.0 (13.5-17.5) g/dL Hct 44.2 (41-53) % MCV 82.9 (80-100) fL MCH 28.2 (26-34) PG MCHC 34.0 (30-36) % RDW 13.2 (11.6-14.8) % Plt Count 212 (150-400) X10^3/uL Neut % (Auto) 93.1 H (50-75) % Lymph % (Auto) 5.1 L (25-40) % Gr[place] % (Auto) 1.3 L (3-14) % Eos % (Auto) 0.2 L (2-4) % Baso % (Auto) 0.3 (0-2) % Neut # (Auto) 5600 (9387-8743) /uL Lymph # (Auto) 300 L (3591-9271) /uL [place] # (Auto) 100 (0-900) /uL Eos # (Auto) 0 (0-450) /uL Baso # (Auto) 0 (0-100) /uL Sodium 136 L (137-145) mmol/L Potassium 3.8 (3.4-5.1) mmol/L Chloride 104 (98-107) mmol/L Carbon Dioxide 18 L (22-32) mmol/L BUN 21 H (9-20) mg/dL Creatinine 1.11 (0.66-1.25) mg/dL Estimated GFR > 60 (>60) mL/min BUN/Creatinine Ratio 18.9 (6-22) Glucose 114 H (80-110) mg/dL Lactate 2.2 H (0.7-2.1) mmol/L Calcium 9.7 (8.4-10.2) mg/dL Magnesium 1.4 L (1.6-2.3) mg/dL Total Bilirubin 1.3 (0.2-1.3) mg/dL AST 34 (17-59) IU/L ALT 25 (<50) IU/L Alkaline Phosphatase 153 H (38-126) U/L Ammonia (9-30) umol/L Total Creatine Kinase 137 (55-170) U/L Troponin I < 0.012 (0.01-0.034) ng/mL Total Protein 7.2 (6.3-8.2) g/dL Albumin 4.4 (3.5-5.0) g/dL Globulin 2.8 (1.7-4.1) g/dL Albumin/Globulin Ratio 1.6 (1.0-2.8) Lipase 63 (23-300) U/L Procalcitonin 2.27 H (<0.5) ng/mL Urine Color Urine Appearance Urine pH (4.5-8.0) Ur Specific [place] (1.000-1.035) Urine Protein (Negative) Urine Glucose (UA) (Negative) g/dL Urine Ketones (NEGATIVE) Urine Occult Blood (Negative) Urine Nitrate (Negative) Urine Bilirubin (NEGATIVE) Ur Bilirubin Confirm (Negative) Urine Urobilinogen (0.2) E.U./dL Ur Leukocyte Esterase (NEGATIVE) Urine RBC (0-5/HPF) Urine WBC (0-5/HPF) Ur Squamous Epith Cells (0-5/HPF) Urine Bacteria (None) Urine Mucus (Negative) Ur Culture Indicated? Vol Urine Centrifuged U Opiates 300ng/mL cut (Negative) Ur Oxycodone Screen (Negative) Urine Methadone Screen (Negative) Ur Barbiturates Screen (Negative) U Tricyclic Antidepress (Negative) Ur Phencyclidine Scrn (Negative) Ur Amphetamines Screen (Negative) U Methamphetamines Scrn (Negative) Ur MDMA Scrn (Ecstasy) (Negative) U Benzodiazepines Scrn (Negative) Urine Cocaine Screen (Negative) U Marijuana (THC) Screen (Negative) Urine Specific [place] (Normal) Ur Creatinine (Normal) A.calcoaceticus-baumannii cmplx PCR Not detected (Not Detect) Chlamy pneumoniae PCR (Not Detect) Adenovirus (PCR) (Not Detect) Bacteroides fragilis Not detected (Not Detect) B. pertussis DNA (PCR) (Not Detect) B.parapertussis DNA PCR (Not Detecte) Kimberly albicans (PCR) Not detected (Not Detect) Kimberly auris (PCR) Not detected (Not Detect) C. glabrata (PCR) Not detected (Not Detect) C. krusei (PCR) Not detected (Not Detect) C. parapsilosis (PCR) Not detected (Not Detect) C. tropicalis (PCR) Not detected (Not Detect) Coronavirus OC43 (PCR) (Not Detect) Coronavirus HKU1 (PCR) (Not Detect) Coronavirus 229E (PCR) (Not Detect) SARS-CoV-2 (PCR) (Not Detecte) Coronavirus NL63 (PCR) (Not Detect) C. neoform/gattii (PCR) Not detected (Not Detect) Enterobacterales (PCR) Not detected (Not Detect) E. cloacae complex PCR Not detected (Not Detect) Enterococc faecalis PCR Not detected (Not Detect) Enterococc faecium PCR Not detected (Not Detect) E. coli (PCR) Not detected (Not Detect) H. influenzae (PCR) Not detected (Not Detect) Human Metapneumovir PCR (Not Detect) Influenza Type A (PCR) (Not Detect) Influenza Type B (PCR) (Not Detect) Klebsiella aerogenes (PCR) Not detected (Not Detect) Klebsiella oxytoca PCR Not detected (Not Detect) Klebsiella pneumoniae Not detected (Not Detect) List. monocytogenes PCR Not detected (Not Detect) M. pneumoniae (PCR) (Not Detect) N. meningitidis (PCR) Not detected (Not Detect) Parainfluenza 1 (PCR) (Not Detect) Parainfluenza 2 (PCR) (Not Detect) Parainfluenza 3 (PCR) (Not Detect) Parainfluenza 4 (PCR) (Not Detect) Proteus species (PCR) Not detected (Not Detect) RSV (PCR) (Not Detect) Entero/Rhino (PCR) (Not Detect) Salmonella spp. (PCR) Not detected (Not Detect) Serratia marcescens PCR Not detected (Not Detect) Staphylococcus sp PCR Not detected (Not Detect) Staph aureus (PCR) Not detected (Not Detect) mecA/C & MREJ Resist Gene Not applicable (Not Detect) mecA/C-Methicil Resis Gene Not applicable (Not Detect) mcr-1 Colistin Res Gene PCR Not applicable (Not Detect) Staph epidermidis (PCR) Not detected (Not Detect) Staph lugdunensis PCR Not detected (Not Detect) S. maltophilia (PCR) Not detected (Not Detect) Streptococcus sp PCR Detected (Not Detect) Group A Strep (PCR) Detected (Not Detect) Strep agalactiae (PCR) Not detected (Not Detect) Strep pneumoniae (PCR) Not detected (Not Detect) P. aeruginosa (PCR) Not detected (Not Detect) Neil/B-Vanco Res Genes Not applicable (Not Detect) blaIMP Car res Gene PCR Not applicable (Not Detect) KPC-Carbap Res Gene PCR Not applicable (Not Detect) blaNDM Car Res Gene PCR Not applicable (Not Detect) OXA-48 Carbapenem Resis Gene (PCR) Not applicable (Not Detect) blaVIM Car Res Gene PCR Not applicable (Not Detect) CTX-M Gene Resistance (PCR) Not applicable (Not Detect) 02/14/24 02/14/24 02/14/24 Range/Units 16:43 16:43 16:45 WBC (4.5-11.0) X10^3/uL RBC (4.5-5.9) X10^6/uL Hgb (13.5-17.5) g/dL Hct (41-53) % MCV (80-100) fL MCH (26-34) PG MCHC (30-36) % RDW (11.6-14.8) % Plt Count (150-400) X10^3/uL Neut % (Auto) (50-75) % Lymph % (Auto) (25-40) % [place] % (Auto) (3-14) % Eos % (Auto) (2-4) % Baso % (Auto) (0-2) % Neut # (Auto) (9786-7074) /uL Lymph # (Auto) (9566-4481) /uL Grayson # (Auto) (0-900) /uL Eos # (Auto) (0-450) /uL Baso # (Auto) (0-100) /uL Sodium (137-145) mmol/L Potassium (3.4-5.1) mmol/L Chloride (98-107) mmol/L Carbon Dioxide (22-32) mmol/L BUN (9-20) mg/dL Creatinine (0.66-1.25) mg/dL Estimated GFR (>60) mL/min BUN/Creatinine Ratio (6-22) Glucose (80-110) mg/dL Lactate (0.7-2.1) mmol/L Calcium (8.4-10.2) mg/dL Magnesium (1.6-2.3) mg/dL Total Bilirubin (0.2-1.3) mg/dL AST (17-59) IU/L ALT (<50) IU/L Alkaline Phosphatase (38-126) U/L Ammonia < 9 L (9-30) umol/L Total Creatine Kinase (55-170) U/L Troponin I (0.01-0.034) ng/mL Total Protein (6.3-8.2) g/dL Albumin (3.5-5.0) g/dL Globulin (1.7-4.1) g/dL Albumin/Globulin Ratio (1.0-2.8) Lipase (23-300) U/L Procalcitonin (<0.5) ng/mL Urine Color Dark yellow Urine Appearance Clear Urine pH 5.0 Normal (4.5-8.0) Ur Specific [place] 1.025 (1.000-1.035) Urine Protein Trace H (Negative) Urine Glucose (UA) Negative (Negative) g/dL Urine Ketones 1+ H (NEGATIVE) Urine Occult Blood Negative (Negative) Urine Nitrate Negative (Negative) Urine Bilirubin 1+ H (NEGATIVE) Ur Bilirubin Confirm Positive H (Negative) Urine Urobilinogen 1.0 (0.2) E.U./dL Ur Leukocyte Esterase Negative (NEGATIVE) Urine RBC 0-1/hpf (0-5/HPF) Urine WBC 1-5/hpf (0-5/HPF) Ur Squamous Epith Cells 5-10 /hpf H (0-5/HPF) Urine Bacteria Moderate (10-30) H (None) Urine Mucus 3+ H (Negative) Ur Culture Indicated? Cult not indicated Vol Urine Centrifuged 10ml (spun) U Opiates 300ng/mL cut Positive H (Negative) Ur Oxycodone Screen Negative (Negative) Urine Methadone Screen Negative (Negative) Ur Barbiturates Screen Negative (Negative) U Tricyclic Antidepress Positive H (Negative) Ur Phencyclidine Scrn Negative (Negative) Ur Amphetamines Screen Positive H (Negative) U Methamphetamines Scrn Negative (Negative) Ur MDMA Scrn (Ecstasy) Negative (Negative) U Benzodiazepines Scrn Positive H (Negative) Urine Cocaine Screen Negative (Negative) U Marijuana (THC) Screen Positive H (Negative) Urine Specific [place] Normal (Normal) Ur Creatinine Normal (Normal) A.calcoaceticus-baumannii cmplx PCR (Not Detect) Chlamy pneumoniae PCR (Not Detect) Adenovirus (PCR) (Not Detect) Bacteroides fragilis (Not Detect) B. pertussis DNA (PCR) (Not Detect) B.parapertussis DNA PCR (Not Detecte) Kimberly albicans (PCR) (Not Detect) Kimberly auris (PCR) (Not Detect) C. glabrata (PCR) (Not Detect) C. krusei (PCR) (Not Detect) C. parapsilosis (PCR) (Not Detect) C. tropicalis (PCR) (Not Detect) Coronavirus OC43 (PCR) (Not Detect) Coronavirus HKU1 (PCR) (Not Detect) Coronavirus 229E (PCR) (Not Detect) SARS-CoV-2 (PCR) (Not Detecte) Coronavirus NL63 (PCR) (Not Detect) C. neoform/gattii (PCR) (Not Detect) Enterobacterales (PCR) (Not Detect) E. cloacae complex PCR (Not Detect) Enterococc faecalis PCR (Not Detect) Enterococc faecium PCR (Not Detect) E. coli (PCR) (Not Detect) H. influenzae (PCR) (Not Detect) Human Metapneumovir PCR (Not Detect) Influenza Type A (PCR) (Not Detect) Influenza Type B (PCR) (Not Detect) Klebsiella aerogenes (PCR) (Not Detect) Klebsiella oxytoca PCR (Not Detect) Klebsiella pneumoniae (Not Detect) List. monocytogenes PCR (Not Detect) M. pneumoniae (PCR) (Not Detect) N. meningitidis (PCR) (Not Detect) Parainfluenza 1 (PCR) (Not Detect) Parainfluenza 2 (PCR) (Not Detect) Parainfluenza 3 (PCR) (Not Detect) Parainfluenza 4 (PCR) (Not Detect) Proteus species (PCR) (Not Detect) RSV (PCR) (Not Detect) Entero/Rhino (PCR) (Not Detect) Salmonella spp. (PCR) (Not Detect) Serratia marcescens PCR (Not Detect) Staphylococcus sp PCR (Not Detect) Staph aureus (PCR) (Not Detect) mecA/C & MREJ Resist Gene (Not Detect) mecA/C-Methicil Resis Gene (Not Detect) mcr-1 Colistin Res Gene PCR (Not Detect) Staph epidermidis (PCR) (Not Detect) Staph lugdunensis PCR (Not Detect) S. maltophilia (PCR) (Not Detect) Streptococcus sp PCR (Not Detect) Group A Strep (PCR) (Not Detect) Strep agalactiae (PCR) (Not Detect) Strep pneumoniae (PCR) (Not Detect) P. aeruginosa (PCR) (Not Detect) Neil/B-Vanco Res Genes (Not Detect) blaIMP Car res Gene PCR (Not Detect) KPC-Carbap Res Gene PCR (Not Detect) blaNDM Car Res Gene PCR (Not Detect) OXA-48 Carbapenem Resis Gene (PCR) (Not Detect) blaVIM Car Res Gene PCR (Not Detect) CTX-M Gene Resistance (PCR) (Not Detect) 02/14/24 Range/Units 16:55 WBC (4.5-11.0) X10^3/uL RBC (4.5-5.9) X10^6/uL Hgb (13.5-17.5) g/dL Hct (41-53) % MCV (80-100) fL MCH (26-34) PG MCHC (30-36) % RDW (11.6-14.8) % Plt Count (150-400) X10^3/uL Neut % (Auto) (50-75) % Lymph % (Auto) (25-40) % [place] % (Auto) (3-14) % Eos % (Auto) (2-4) % Baso % (Auto) (0-2) % Neut # (Auto) (6470-4622) /uL Lymph # (Auto) (5150-9146) /uL Grayson # (Auto) (0-900) /uL Eos # (Auto) (0-450) /uL Baso # (Auto) (0-100) /uL Sodium (137-145) mmol/L Potassium (3.4-5.1) mmol/L Chloride (98-107) mmol/L Carbon Dioxide (22-32) mmol/L BUN (9-20) mg/dL Creatinine (0.66-1.25) mg/dL Estimated GFR (>60) mL/min BUN/Creatinine Ratio (6-22) Glucose (80-110) mg/dL Lactate (0.7-2.1) mmol/L Calcium (8.4-10.2) mg/dL Magnesium (1.6-2.3) mg/dL Total Bilirubin (0.2-1.3) mg/dL AST (17-59) IU/L ALT (<50) IU/L Alkaline Phosphatase (38-126) U/L Ammonia (9-30) umol/L Total Creatine Kinase (55-170) U/L Troponin I (0.01-0.034) ng/mL Total Protein (6.3-8.2) g/dL Albumin (3.5-5.0) g/dL Globulin (1.7-4.1) g/dL Albumin/Globulin Ratio (1.0-2.8) Lipase (23-300) U/L Procalcitonin (<0.5) ng/mL Urine Color Urine Appearance Urine pH (4.5-8.0) Ur Specific [place] (1.000-1.035) Urine Protein (Negative) Urine Glucose (UA) (Negative) g/dL Urine Ketones (NEGATIVE) Urine Occult Blood (Negative) Urine Nitrate (Negative) Urine Bilirubin (NEGATIVE) Ur Bilirubin Confirm (Negative) Urine Urobilinogen (0.2) E.U./dL Ur Leukocyte Esterase (NEGATIVE) Urine RBC (0-5/HPF) Urine WBC (0-5/HPF) Ur Squamous Epith Cells (0-5/HPF) Urine Bacteria (None) Urine Mucus (Negative) Ur Culture Indicated? Vol Urine Centrifuged U Opiates 300ng/mL cut (Negative) Ur Oxycodone Screen (Negative) Urine Methadone Screen (Negative) Ur Barbiturates Screen (Negative) U Tricyclic Antidepress (Negative) Ur Phencyclidine Scrn (Negative) Ur Amphetamines Screen (Negative) U Methamphetamines Scrn (Negative) Ur MDMA Scrn (Ecstasy) (Negative) U Benzodiazepines Scrn (Negative) Urine Cocaine Screen (Negative) U Marijuana (THC) Screen (Negative) Urine Specific [place] (Normal) Ur Creatinine (Normal) A.calcoaceticus-baumannii cmplx PCR (Not Detect) Chlamy pneumoniae PCR Not detected (Not Detect) Adenovirus (PCR) Not detected (Not Detect) Bacteroides fragilis (Not Detect) B. pertussis DNA (PCR) Not detected (Not Detect) B.parapertussis DNA PCR Not detected (Not Detecte) Kimberly albicans (PCR) (Not Detect) Kimberly auris (PCR) (Not Detect) C. glabrata (PCR) (Not Detect) C. krusei (PCR) (Not Detect) C. parapsilosis (PCR) (Not Detect) C. tropicalis (PCR) (Not Detect) Coronavirus OC43 (PCR) Not detected (Not Detect) Coronavirus HKU1 (PCR) Not detected (Not Detect) Coronavirus 229E (PCR) Not detected (Not Detect) SARS-CoV-2 (PCR) Not detected (Not Detecte) Coronavirus NL63 (PCR) Not detected (Not Detect) C. neoform/gattii (PCR) (Not Detect) Enterobacterales (PCR) (Not Detect) E. cloacae complex PCR (Not Detect) Enterococc faecalis PCR (Not Detect) Enterococc faecium PCR (Not Detect) E. coli (PCR) (Not Detect) H. influenzae (PCR) (Not Detect) Human Metapneumovir PCR Not detected (Not Detect) Influenza Type A (PCR) Not detected (Not Detect) Influenza Type B (PCR) Not detected (Not Detect) Klebsiella aerogenes (PCR) (Not Detect) Klebsiella oxytoca PCR (Not Detect) Klebsiella pneumoniae (Not Detect) List. monocytogenes PCR (Not Detect) M. pneumoniae (PCR) Not detected (Not Detect) N. meningitidis (PCR) (Not Detect) Parainfluenza 1 (PCR) Not detected (Not Detect) Parainfluenza 2 (PCR) Not detected (Not Detect) Parainfluenza 3 (PCR) Not detected (Not Detect) Parainfluenza 4 (PCR) Not detected (Not Detect) Proteus species (PCR) (Not Detect) RSV (PCR) Not detected (Not Detect) Entero/Rhino (PCR) Not detected (Not Detect) Salmonella spp. (PCR) (Not Detect) Serratia marcescens PCR (Not Detect) Staphylococcus sp PCR (Not Detect) Staph aureus (PCR) (Not Detect) mecA/C & MREJ Resist Gene (Not Detect) mecA/C-Methicil Resis Gene (Not Detect) mcr-1 Colistin Res Gene PCR (Not Detect) Staph epidermidis (PCR) (Not Detect) Staph lugdunensis PCR (Not Detect) S. maltophilia (PCR) (Not Detect) Streptococcus sp PCR (Not Detect) Group A Strep (PCR) (Not Detect) Strep agalactiae (PCR) (Not Detect) Strep pneumoniae (PCR) (Not Detect) P. aeruginosa (PCR) (Not Detect) Neil/B-Vanco Res Genes (Not Detect) blaIMP Car res Gene PCR (Not Detect) KPC-Carbap Res Gene PCR (Not Detect) blaNDM Car Res Gene PCR (Not Detect) OXA-48 Carbapenem Resis Gene (PCR) (Not Detect) blaVIM Car Res Gene PCR (Not Detect) CTX-M Gene Resistance (PCR) (Not Detect) Point of Care Testing Glucose POC 109 Point of care testing: Point of Care Testing Glucose POC 109 Imaging Data Chest x-ray: Radiologist's Impression: [address] [address] XRay Report Signed Patient: Hugo Perkins MR#: [id number] : 1950 Acct:[id number] Age/Sex: 73 / M Date of Service: 02/14/24 Loc: ED Accession Number: [id number] Procedure: XR chest 1V Ordering Provider: Israel Slade MD PROCEDURE: XR CHEST 1V INDICATIONS: altered mental status TECHNIQUE: One view of the chest was acquired. COMPARISON: None. FINDINGS: Surgical changes and devices: None. Lungs and pleura: Low lung volumes. No dense airspace disease or pleural effusions. Mediastinum: Heart size is at the upper limit of normal. Bones and chest wall: There are degenerative changes. IMPRESSION: Limited single view radiograph with low lung volumes. No acute abnormality. Dictated by: David Peterson M.D. on 02/14/2024 at 16:10 Approved by: David Peterson M.D. on 02/14/2024 at 16:11 [facility] Narrative Medical decision making narrative: Patient tested positive for COVID today according to . He has not felt well for the past 2-3 days. He does drink alcohol. Last drink about 2 days ago. No seizures. No hallucinations. Rectal temp 104.2?. Oral ibuprofen 800 mg and IV Tylenol 1000 mg ordered. Patient is awake alert oriented x4. He is restless though. Denies any chest pain or shortness of breath. Denies any headache. No cough cold or congestion. After history and exam CBC CMP procalcitonin blood culture lactic acid Tylenol ibuprofen chest x-ray [facility] Medical records reviewed: No recent visit for this complaint Differential considered: Includes but not limited to sepsis pneumonia COVID, alcohol withdrawal, meningitis, encephalitis, hepatic encephalopathy Lab Test results independently reviewed as above. Pertinent findings: WBC 6.0 hemoglobin 15 Sodium 136 potassium 3.8 bicarb 18 BUN 21 creatinine 1.11 GFR greater than 60 glucose 114 lactic acid 2.2 magnesium 1.4 troponin less than 0.012 procalcitonin 2.27 lipase 63 Drug screen positive opiates positive TCA positive amphetamines positive benzodiazepine positive marijuana Independently reviewed EKG EKG shows sinus tachycardia rate [address] elevation or depression Imaging studies independently reviewed: Chest x-ray no acute finding Consultations: 5:[address] Bird, hospitalist, who will admit to ICU. Treatments: Ativan Dilaudid phenobarbital normal saline Rocephin Precedex Re-evaluations: 4:54 p.m.. Patient requiring more be direction to stay in it. Not combative. Hospitalist, Dr. Bird instructs for Precedex for admit to ICU Discussion: Appropriate for admission for alcohol withdrawal/possible COVID infection, reviewed with hospitalist for admission and agrees for admit. Family agrees for admission and patient as well. Antibiotics were started. Precedex started as requested by hospitalist. No lumbar puncture indicated at this time. Patient is awake alert oriented x4. Denies any headache. No neck pain. Diagnosis: Alcohol withdrawal Critical Care Time Critical Care Time Attestation: Critical Care Time 35 minutes: Patient requiring ICU management/admit Critical care time is separate from other billable procedures. This critical care time includes consultation with family and other consulting doctors, review of records, and interpretation of data from labs, EKGs, imaging, etc. Discharge Plan Departure Patient Disposition: Admitted As Inpatient Clinical Impression: Alcohol withdrawal delirium Admit Date/Time: 02/14/24 17:29 Admit Provider: Johnnie Bird
[2024-02-14 15:56] LABS: Alanine Aminotransferase 25 IU/L (<50); Albumin 4.4 g/dL (3.5-5.0); Albumin Globulin Ratio 1.6 (1.0-2.8); Alkaline Phosphatase 153 U/L (38-126); Aspartate Aminotransferase 34 IU/L (17-59); BUN Creatinine Ratio 18.9 (6-22); Bilirubin Total 1.3 mg/dL (0.2-1.3); Blood Urea Nitrogen 21 mg/dL (9-20); Calcium 9.7 mg/dL (8.4-10.2); Carbon Dioxide 18 mmol/L (22-32); Chloride 104 mmol/L (98-107); Creatine Kinase 137 U/L (55-170); Estimated Glomerular Filt Rate > 60 mL/min (>60); Globulin 2.8 g/dL (1.7-4.1); Glucose 114 mg/dL (80-110); HEMOLYSIS 21 (0-50); Lipase 63 U/L (23-300); Magnesium 1.4 mg/dL (1.6-2.3); Potassium 3.8 mmol/L (3.4-5.1); Sodium 136 mmol/L (137-145); Total Protein 7.2 g/dL (6.3-8.2)
[2024-02-14] MEDS: MULTIVITAMIN 1 TABLET 1 TAB PO (16:02)
[2024-02-14] MEDS: IBUPROFEN 400 MG TABLET 800 MG PO (16:02)
[2024-02-14] MEDS: LORazepam 2 MG/ML INJ IV ×3 (16:02→20:07)
[2024-02-14] MEDS: ACETAMINOPHEN IV 1,000 MG/100 ML VIAL 400 MG IV (16:02)
[2024-02-14] MEDS: FOLIC ACID 1 MG TABLET PO (16:03)
[2024-02-14] MEDS: THIAMINE 100 MG TABLET PO (16:03)
[2024-02-14 16:05] LABS: Lactate (Lactic Acid) 2.2 mmol/L (0.7-2.1)
[2024-02-14 16:08] LABS: Troponin I < 0.012 ng/mL (0.01-0.034)
[2024-02-14] MEDS: LIDOCAINE 2% (GLYDO) 6 ML GEL TOP (16:12)
--- NOTE | 2024-02-14 16:31 | PM.HP.1 ---
History of Present Illness History of Present Illness Date Patient Seen: 02/14/24 Chief complaint: cold symptoms, + for covid today, high hr, vomit Narrative: From ED doctor: Patient tested positive for COVID today according to . He has not felt well for the past 2-3 days. He does drink alcohol. Last drink about 2 days ago. No seizures. No hallucinations. Rectal temp 104.2?. Oral ibuprofen 800 mg and IV Tylenol 1000 mg ordered. Patient is awake alert oriented x4. He is restless though. Denies any chest pain or shortness of breath. Denies any headache. No cough cold or congestion. Additional information: The patient was been ill for about a week with COVID symptoms including URI symptoms and a very severe cough. Today became more lethargic and febrile as well as somewhat confused. He was brought to the emergency department where he was tachycardic and found to have a temperature of 104?. He was given IV Tylenol and ibuprofen with improvement of fever. Chest x-ray was fairly unremarkable. He was somewhat hypoxic requiring 3 L of oxygen. He was not had diarrhea that his knows of this week. He does drink on a regular basis but has not been having much last day or 2 from her perspective because he has been ill. The patient is moderately to severely ill and somewhat confused and really not able to participate in additional history or comply with review of systems. ED course: In the ER he exhibited agitation and there was concern for alcohol withdrawal. He had marginal response to Ativan but did improve with Dilaudid. There is a question of continuous opiate use at home with Vicodin for lower back pain. In addition he was given phenobarbital 230 mg with marginal response and ceftriaxone 2 g IV. Blood cultures were obtained. He was then started on a Precedex drip with better control his symptoms. He was given IV Tylenol and ibuprofen for fever. FOR[facility]LY [facility] Medical History Breast mass, right Gynecomastia Depression, major Rising PSA level BPH w urinary obs/LUTS History of colonic polyps Right cervical radiculopathy Psoriatic arthritis Mixed hyperlipidemia Essential hypertension Attention deficit disorder predominant inattentive type Chronic, continuous use of opioids Primary osteoarthritis involving multiple joints Back pain, chronic Macular pucker, left eye Cataracts, bilateral Post-nasal drip Spondylolisthesis, lumbar region Spinal stenosis, lumbar region without neurogenic claudication Postlaminectomy syndrome, not elsewhere classified History of Mohs micrographic surgery for skin cancer (2019) Psoriasis Postlaminectomy syndrome Spinal stenosis Arthritis Acid reflux Hx of Prinzmetal angina (~1999) Hearing impaired Sciatica Osteoarthritis Hyperlipidemia Surgical History Anesthesia History of eye surgery S/P excision of lipoma (05/2016) Hx of parotidectomy (1960) History of back surgery (~2002) Hx of laminectomy (~2008) Hx of tonsillectomy History of surgery (10/2019) History of phacoemulsification of cataract of left eye with intraocular lens implantation Family History Father Cancer Mother Cancer Grandfather Cancer Grandmother Cancer Social History marital status: household members: spouse lives independently: Yes occupational status: previously employed Smoking Status: Former smoker alcohol intake: current substance use type: does not use Meds Home Medications and Allergies Home Medications Medication Instructions Recorded Confirmed Type phenylephrine HCl 10 mg tablet 10 mg PO Q4-6H PRN Sinus congestion 03/10/20 01/10/24 History risankizumab-rzaa 150 mg/mL 150 mg SUBCUT Q12W 07/01/22 01/10/24 History subcutaneous pen injector (Monster) cyclobenzaprine 10 mg tablet 10 mg PO TID PRN muscle spasm #40 12/27/22 01/10/24 Rx tabs losartan 50 mg tablet 50 mg PO DAILY #90 tabs 03/02/23 01/10/24 Rx meloxicam 15 mg tablet 15 mg PO DAILY #90 tabs 03/02/23 01/10/24 Rx amlodipine 5 mg tablet 10 mg (2 x 5 mg) PO DAILY #180 tabs 03/31/23 01/10/24 Rx ipratropium bromide 42 mcg (0.06 2 spray intranasal TID-QID PRN 04/11/23 01/10/24 Rx %) nasal spray allergy symptoms #15 mL sertraline 50 mg tablet 50 mg PO DAILY #90 tabs 05/29/23 01/10/24 Rx triamcinolone acetonide 0.1 % 1 applic topical DAILY PRN 07/11/23 01/10/24 History topical ointment atorvastatin 40 mg tablet (Lipitor) 40 mg PO BEDTIME #90 tabs 08/14/23 01/10/24 Rx betamethasone dipropionate 0.05 % 1 applic topical DAILY PRN rash 01/10/24 01/10/24 Rx topical cream #30 grams dextroamphetamine sulfate 10 mg 10 mg PO BID #60 tabs 01/10/24 01/10/24 Rx tablet dextroamphetamine sulfate 10 mg 10 mg PO BID #60 tabs 01/10/24 01/10/24 Rx tablet dextroamphetamine sulfate 10 mg 10 mg PO BID ADD #60 tabs 01/10/24 01/10/24 Rx tablet hydrocodone 5 mg-acetaminophen 325 1 tab PO BID PRN pain #60 tabs 01/10/24 01/10/24 Rx mg tablet hydrocodone 5 mg-acetaminophen 325 1 tab PO BID PRN pain #60 tabs 01/10/24 01/10/24 Rx mg tablet hydrocodone 5 mg-acetaminophen 325 1 tab PO BID PRN pain #60 tabs 01/10/24 01/10/24 Rx mg tablet lorazepam 0.5 mg tablet 0.5 mg PO BID PRN sleep #60 tabs 01/10/24 01/10/24 Rx Allergies Allergy/AdvReac Type Severity Reaction Status Date / Time duloxetine AdvReac Mild Night Verified 01/10/24 10:33 sweats, sexual dysfunction tamsulosin AdvReac Mild erectile Verified 01/10/24 10:33 dysfunction Review of Systems Review of Systems Narrative: Not obtainable otherwise due to mental status. Exam Vital Signs (past 8 hours): - 02/14/24 15:08 02/14/24 15:25 02/14/24 15:30 Temperature 99.9 F H Pulse Rate 138 H 130 H 129 H Respiratory Rate 30 H 34 H 29 H Blood Pressure 146/72 H Pulse Oximetry 94 Oxygen Delivery Method Room Air 02/14/24 15:39 02/14/24 16:02 Temperature 104.2 F H 104.2 F H Pulse Rate Respiratory Rate Blood Pressure Pulse Oximetry Oxygen Delivery Method Oxygen Delivery Method Room Air Narrative Exam Narrative: He appears moderately ill in his in moderate distress. He was not tachypneic but he was tachycardic. He was confused. He was not really able to answer questions but is mumbling. Conjugate gaze, EOMI. Normocephalic skull, EOMI, anicteric sclera, symmetric pupils. Oropharynx unremarkable, no droop. Neck supple, midline trachea, no adenopathy. The neck is supple. Lungs clear, normal rate and effort. Some scattered rhonchi but overall very good air movement. Heart regular, no murmur gallop or rub. Abdomen is distended and there is a large ventral hernia, the abdomen is soft and there is no grimacing or indication of pain when he was deeply palpated. Extremities are free of edema. Left knee is wrapped. There is no swelling or redness above or below the wrapping which extends from just above the knee to about 6 in [id number]. Skin is free of rash or lesions. Joints are not swollen or deformed. Judgment can not be assessed. Objective ECG Impression: Sinus tachycardia with short NV Right bundle branch block Imaging Chest x-ray: Radiologist's impression: Limited single view radiograph with low lung volumes. No acute abnormality. Labs 02/14/24 15:30 02/14/24 15:30 Labs: Laboratory Results - last 24 hr 02/14/24 15:30 WBC 6.0 RBC 5.33 Hgb 15.0 Hct 44.2 MCV 82.9 MCH 28.2 MCHC 34.0 RDW 13.2 Plt Count 212 Neut % (Auto) 93.1 H Lymph % (Auto) 5.1 L [place] % (Auto) 1.3 L Eos % (Auto) 0.2 L Baso % (Auto) 0.3 Neut # (Auto) 5600 Lymph # (Auto) 300 L [place] # (Auto) 100 Eos # (Auto) 0 Baso # (Auto) 0 Sodium 136 L Potassium 3.8 Chloride 104 Carbon Dioxide 18 L BUN 21 H Creatinine 1.11 Estimated GFR > 60 BUN/Creatinine Ratio 18.9 Glucose 114 H Lactate 2.2 H Calcium 9.7 Magnesium 1.4 L Total Bilirubin 1.3 AST 34 ALT 25 Alkaline Phosphatase 153 H Total Creatine Kinase 137 Troponin I < 0.012 Total Protein 7.2 Albumin 4.4 Globulin 2.8 Albumin/Globulin Ratio 1.6 Lipase 63 Assessment & Plan Assessment & Plan narrative: 1. COVID positive, present on admission and active. 2. Probable COVID pneumonia, present on admission and active. 3. Possible secondary pneumonia, present on admission and active. 4. Significant fever, present on admission and active. 5. Sepsis with tachycardia, fever, COVID, leukocytosis, and a mild lactic acidosis of 2.2. 6. Possible alcohol use disorder and withdrawal, present on admission and active. 7. Acute septic encephalopathy, present on admission and active. 8. Clinical evidence of volume depletion, present on admission and active. 9. Possible opiate dependence, present on admission and active. Plan: -broad-spectrum IV antibiotic for possible bacterial superinfection. -dexamethasone for possible COVID pneumonia. -IV fluid resuscitation, a 2 L will be given. -trend troponins, check dimer, and trend lactic acid. -monitor mental status. -CIWA protocol. -Dilaudid as needed. -Precedex drip as needed for agitation -fever control with IV Tylenol and ibuprofen, cooling Vantage if needed. ICU level of care, anticipate at least 2 midnight length of stay, inpatient status. Full resuscitation, is proxy. 40 minutes of critical care time spent, prognosis is guarded. COVID-19 COVID-19 status: Positive Result date/Date tested (Pos, Neg/Pending): 02/14/24 Time-Based Coding :: 40 min spent with patient and on the chart (including review of chart, obtaining history, exam, reviewing outside data, placing orders, documenting exam and treatment plan, and counseling patient) on 02/13. Quality MIPS - Admit I confirm the patient?s Advance Care Plan is present, Code status is documented, Surrogate decision maker is in patient?s record [If Yes, STOP here]: Yes MIPS - Meds 'Current medications' to include all prescriptions, [id number] products, herbals, cannabis/cannabidiol products, and vitamin/mineral/dietary (nutritional) supplements. I have utilized all available resources to obtain, update, or review the patient?s current medications. [If Yes, STOP here]: Yes
[2024-02-14] MEDS: HYDROMORPHONE 1 MG INJ IV (16:34)
[2024-02-14 16:36] LABS: Procalcitonin 2.27 ng/mL (<0.5)
[2024-02-14] MEDS: PHENobarbital 65 MG/ML VIAL 260 MG IV (16:39)
[2024-02-14] MEDS: SODIUM CHLORIDE 0.9% 1,000 ML 1000 ML IV ×2 (17:00→18:48)
[2024-02-14 17:02] LABS: Appearance Urine UA CLEAR; Bilirubin Urine UA 1+ (NEGATIVE); Glucose Urine UA NEGATIVE (Negative); Ketones Urine UA 1+ (NEGATIVE); Leukocyte Esterase Urine UA NEGATIVE (NEGATIVE); Nitrite Urine UA NEGATIVE (Negative); Occult Blood Urine UA NEGATIVE (Negative); Protein Urine UA TRACE (Negative); Specific Gravity Urine UA 1.025 (1.000-1.035)
[2024-02-14 17:06] LABS: Color Urine UA Dark Yellow
[2024-02-14 17:08] LABS: Ur Creatinine Normal (Normal); Ur Specific Gravity Normal (Normal); Urine pH Normal (Normal)
[2024-02-14 17:09] LABS: Urine Amphetamines Positive (Negative); Urine Barbiturates Negative (Negative); Urine Benzodiazepines Positive (Negative); Urine Cocaine Negative (Negative); Urine MDMA Negative (Negative); Urine Methadone Negative (Negative); Urine Methamphetamines Negative (Negative); Urine Opiates Positive (Negative); Urine Oxycodone Negative (Negative); Urine Phencyclidine Negative (Negative); Urine THC Positive (Negative); Urine Tricyclic Antidepressant Positive (Negative)
[2024-02-14 17:12] LABS: Ammonia (NH3) < 9 umol/L (9-30)
[2024-02-14] MEDS: dexmedeTOMIDine in 0.9 % NaCL 400 MCG/100 ML PLAST..BAG 19.278 MCG IV (17:15)
[2024-02-14 17:24] LABS: Ictotest Urine Positive (Negative); Urine Volume 10mL (spun)
[2024-02-14 17:25] LABS: Bacteria Urine Moderate (10-30); Culture Indicated Urine Cult Not Indicated; Mucus Urine 3+ (Negative); RBC Urine 0-1/HPF (0-5/HPF); Squamous Epithelial Cell Urine 5-10 /HPF (0-5/HPF); WBC Urine 1-5/HPF (0-5/HPF)
[2024-02-14 17:33] LABS: Reflexed Lactate in 2 Hours Y
[2024-02-14] MEDS: cefTRIAXone 2,000 MG in SODIUM CHLORIDE 0.9% 100 ML 200 MG IV (17:38)
[2024-02-14 17:48] LABS: Adenovirus Not Detected (Not Detect); B. parapertussis Not Detected (Not Detecte); Bordetella pertussis Not Detected (Not Detect); Chlamydophila pneumoniae Not Detected (Not Detect); Coronavirus 229E Not Detected (Not Detect); Coronavirus HKU1 Not Detected (Not Detect); Coronavirus NL 63 Not Detected (Not Detect); Coronavirus OC43 Not Detected (Not Detect); Human Metapneumovirus Not Detected (Not Detect); Human Rhinovirus/Enterovirus Not Detected (Not Detect); Influenza A Not Detected (Not Detect); Influenza B Not Detected (Not Detect); Mycoplasma pneumoniae Not Detected (Not Detect); Parainfluenza Virus 1 Not Detected (Not Detect); Parainfluenza Virus 2 Not Detected (Not Detect); Parainfluenza Virus 3 Not Detected (Not Detect); Parainfluenza Virus 4 Not Detected (Not Detect); Respiratory Syncytial Virus Not Detected (Not Detect); SARS- CoV-2 Not Detected (Not Detecte)
[2024-02-14] MEDS: SODIUM CHLORIDE 0.9% 1,000 ML 100 ML IV (18:47)
[2024-02-14 18:49] LABS: D Dimer 4043 ng/ml (<500); Lactate 2HR (Lactic Acid Rflx) 2.7 mmol/L (0.7-2.1)
[2024-02-14] MEDS: DEXAMETHASONE 10 MG/ML VIAL 6 MG IV (18:50)
[2024-02-14] MEDS: CEFEPIME 2 GM in SODIUM CHLORIDE 0.9% 100 ML IV (18:50)
[2024-02-14 19:03] LABS: Troponin I 0.015 ng/mL (0.01-0.034)
--- NOTE | 2024-02-14 19:21 | PM.CN.EICU ---
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 Bird Narrative: 73 year old male with PMHX of was not feeling well for the past 2-3 days. had URI symptoms with fever of 104 and more confused today. postive for covid at home daily drinker las one being 2 days ago no seizures. No hallucinations. Rectal temp 104.2?. Oral ibuprofen 800 mg and IV Tylenol 1000 mg ordered. Patient is awake alert oriented x4. He is restless though. Denies any chest pain or shortness of breath. Denies any headache. No cough cold or congestion. noted to have signs of agitation and there was concern for alcohol withdrawal and low bp in ED. pt given ivf, abx and atgivan and admitted to the ICU. [facility] Medical History Breast mass, right Gynecomastia Depression, major Rising PSA level BPH w urinary obs/LUTS History of colonic polyps Right cervical radiculopathy Psoriatic arthritis Mixed hyperlipidemia Essential hypertension Attention deficit disorder predominant inattentive type Chronic, continuous use of opioids Primary osteoarthritis involving multiple joints Back pain, chronic Macular pucker, left eye Cataracts, bilateral Post-nasal drip Spondylolisthesis, lumbar region Spinal stenosis, lumbar region without neurogenic claudication Postlaminectomy syndrome, not elsewhere classified History of Mohs micrographic surgery for skin cancer (2019) Psoriasis Postlaminectomy syndrome Spinal stenosis Arthritis Acid reflux Hx of Prinzmetal angina (~1999) Hearing impaired Sciatica Osteoarthritis Hyperlipidemia Surgical History Anesthesia History of eye surgery S/P excision of lipoma (05/2016) Hx of parotidectomy (1960) History of back surgery (~2002) Hx of laminectomy (~2008) Hx of tonsillectomy History of surgery (10/2019) History of phacoemulsification of cataract of left eye with intraocular lens implantation Family History Father Cancer Mother Cancer Grandfather Cancer Grandmother Cancer Social History marital status: household members: spouse lives independently: Yes occupational status: previously employed Smoking Status: Former smoker alcohol intake: current substance use type: does not use Current Medications Current Medications Medications: Home Medications phenylephrine HCl 10 mg tablet 10 mg PO Q4-6H PRN Sinus congestion 03/10/20 [History Confirmed 01/10/24] risankizumab-rzaa 150 mg/mL subcutaneous pen injector (Skyrizi) 150 mg SUBCUT Q12W 07/01/22 [History Confirmed 01/10/24] cyclobenzaprine 10 mg tablet 10 mg PO TID PRN muscle spasm #40 tabs 12/27/22 [Rx Confirmed 01/10/24] losartan 50 mg tablet 50 mg PO DAILY #90 tabs 03/02/23 [Rx Confirmed 01/10/24] meloxicam 15 mg tablet 15 mg PO DAILY #90 tabs 03/02/23 [Rx Confirmed 01/10/24] amlodipine 5 mg tablet 10 mg (2 x 5 mg) PO DAILY #180 tabs 03/31/23 [Rx Confirmed 01/10/24] ipratropium bromide 42 mcg (0.06 %) nasal spray 2 spray intranasal TID-QID PRN allergy symptoms #15 mL 04/11/23 [Rx Confirmed 01/10/24] sertraline 50 mg tablet 50 mg PO DAILY #90 tabs 05/29/23 [Rx Confirmed 01/10/24] triamcinolone acetonide 0.1 % topical ointment 1 applic topical DAILY PRN 07/11/23 [History Confirmed 01/10/24] atorvastatin 40 mg tablet (Lipitor) 40 mg PO BEDTIME #90 tabs 08/14/23 [Rx Confirmed 01/10/24] betamethasone dipropionate 0.05 % topical cream 1 applic topical DAILY PRN rash #30 grams 01/10/24 [Rx Confirmed 01/10/24] dextroamphetamine sulfate 10 mg tablet 10 mg PO BID #60 tabs 01/10/24 [Rx Confirmed 01/10/24] dextroamphetamine sulfate 10 mg tablet 10 mg PO BID #60 tabs 01/10/24 [Rx Confirmed 01/10/24] dextroamphetamine sulfate 10 mg tablet 10 mg PO BID ADD #60 tabs 01/10/24 [Rx Confirmed 01/10/24] hydrocodone 5 mg-acetaminophen 325 mg tablet 1 tab PO BID PRN pain #60 tabs 01/10/24 [Rx Confirmed 01/10/24] hydrocodone 5 mg-acetaminophen 325 mg tablet 1 tab PO BID PRN pain #60 tabs 01/10/24 [Rx Confirmed 01/10/24] hydrocodone 5 mg-acetaminophen 325 mg tablet 1 tab PO BID PRN pain #60 tabs 01/10/24 [Rx Confirmed 01/10/24] lorazepam 0.5 mg tablet 0.5 mg PO BID PRN sleep #60 tabs 01/10/24 [Rx Confirmed 01/10/24] Visit Medications (administered) Generic Name Dose Route Start Last Admin Trade Name Freq PRN Reason Stop Dose Admin Dexamethasone 6 mg 02/14/24 18:40 02/14/24 18:50 Dexamethasone 10 Mg/Ml Vial IV 6 mg DAILY SAMUEL Administration Folic Acid 1 mg 02/14/24 16:00 02/14/24 16:03 Folic Acid 1 Mg Tablet PO 1 mg DAILY SAMUEL Administration dexmedeTOMIDine in 0.9 % NaCL 400 mcg in 100 mls @ 3.856 mls/hr 02/14/24 17:00 02/14/24 17:57 Precedex IV 0.4 mcg/kg/hr TITRATE SAMUEL 7.711 mls/hr Titration Protocol 0.2 MCG/KG/HR Sodium Chloride 1,000 mls @ 100 mls/hr 02/14/24 18:45 02/14/24 18:47 Normal Saline 0.9% IV 100 mls/hr CONT SAMUEL Administration Cefepime HCl 2 gm/ Sodium 100 mls @ 200 mls/hr 02/14/24 18:45 02/14/24 18:50 Chloride IV 200 mls/hr Q12H SAMUEL Administration Sodium Chloride 1,000 mls @ 1,000 mls/hr 02/14/24 18:40 02/14/24 18:48 Normal Saline 0.9% IV 02/14/24 19:39 1,000 mls/hr BOLUS ONE Administration Lorazepam 0 mg 02/14/24 15:37 02/14/24 18:46 Lorazepam 2 Mg/Ml Inj IV 2 mg CIWAPRN PRN Administration Alcohol Withdrawal Protocol Multivitamins 1 tab 02/14/24 16:00 02/14/24 16:02 Multivitamin 1 Tablet PO 1 tab DAILY SAMUEL Administration Exam Vital Signs (past 8 hours): - 02/14/24 15:08 02/14/24 15:25 02/14/24 15:30 Temperature 99.9 F H Pulse Rate 138 H 130 H 129 H Respiratory Rate 30 H 34 H 29 H Blood Pressure 146/72 H Pulse Oximetry 94 Oxygen Delivery Method Room Air Oxygen Flow Rate 02/14/24 15:39 02/14/24 15:44 02/14/24 15:44 Temperature 104.2 F H Pulse Rate 135 H Respiratory Rate 38 H Blood Pressure 137/68 Pulse Oximetry 96 Oxygen Delivery Method Oxygen Flow Rate 02/14/24 15:50 02/14/24 15:50 02/14/24 16:00 Temperature Pulse Rate 135 H 139 H Respiratory Rate 39 H 41 H Blood Pressure 138/63 Pulse Oximetry 97 95 Oxygen Delivery Method Oxygen Flow Rate 02/14/24 16:01 02/14/24 16:01 02/14/24 16:02 Temperature 104.2 F H Pulse Rate 140 H Respiratory Rate 44 H Blood Pressure 144/78 H Pulse Oximetry 97 Oxygen Delivery Method Oxygen Flow Rate 02/14/24 16:10 02/14/24 16:10 02/14/24 16:20 Temperature 97.2 F L Pulse Rate 135 H 132 H Respiratory Rate 39 H 36 H Blood Pressure 148/80 H Pulse Oximetry 98 95 Oxygen Delivery Method Oxygen Flow Rate 02/14/24 16:20 02/14/24 16:30 02/14/24 16:30 Temperature 102.0 F H Pulse Rate 134 H Respiratory Rate 46 H Blood Pressure 148/70 H 146/73 H Pulse Oximetry 94 Oxygen Delivery Method Oxygen Flow Rate 02/14/24 16:32 02/14/24 16:34 02/14/24 16:41 Temperature 102.7 F H 102.7 F H Pulse Rate Respiratory Rate Blood Pressure 137/64 Pulse Oximetry Oxygen Delivery Method Oxygen Flow Rate 02/14/24 16:41 02/14/24 16:45 02/14/24 16:50 Temperature 103.5 F H 103.6 F H 103.6 F H Pulse Rate 133 H 128 H 124 H Respiratory Rate 30 H 31 H 31 H Blood Pressure Pulse Oximetry 93 90 L 90 L Oxygen Delivery Method Oxygen Flow Rate 02/14/24 16:50 02/14/24 16:55 02/14/24 16:56 Temperature 103.6 F H 103.6 F H Pulse Rate 122 H 123 H Respiratory Rate 29 H 29 H Blood Pressure 122/62 Pulse Oximetry 90 L 89 L Oxygen Delivery Method Nasal Cannula Oxygen Flow Rate 3 02/14/24 16:58 02/14/24 17:00 02/14/24 17:00 Temperature 103.6 F H 103.6 F H Pulse Rate 122 H 122 H Respiratory Rate 29 H 29 H Blood Pressure 126/64 Pulse Oximetry 90 L 89 L Oxygen Delivery Method Nasal Cannula Nasal Cannula Oxygen Flow Rate 3 3 02/14/24 17:02 02/14/24 17:04 02/14/24 17:06 Temperature 103.6 F H 103.6 F H 103.5 F H Pulse Rate 122 H 120 H 120 H Respiratory Rate 28 H 27 H 30 H Blood Pressure Pulse Oximetry 90 L 93 96 Oxygen Delivery Method Nasal Cannula Nasal Cannula Nasal Cannula Oxygen Flow Rate 3 3 3 02/14/24 17:08 02/14/24 17:10 02/14/24 17:10 Temperature 103.5 F H 103.3 F H Pulse Rate 120 H 120 H Respiratory Rate 31 H 29 H Blood Pressure 129/64 Pulse Oximetry 95 95 Oxygen Delivery Method Oxygen Flow Rate 3 3 02/14/24 17:12 02/14/24 17:14 02/14/24 17:16 Temperature 103.1 F H 103.1 F H 102.9 F H Pulse Rate 119 H 118 H 119 H Respiratory Rate 29 H 28 H 27 H Blood Pressure Pulse Oximetry 95 96 95 Oxygen Delivery Method Oxygen Flow Rate 3 3 3 02/14/24 17:18 02/14/24 17:20 02/14/24 17:20 Temperature 102.9 F H 102.7 F H Pulse Rate 119 H 118 H Respiratory Rate 30 H 27 H Blood Pressure 126/64 Pulse Oximetry 96 96 Oxygen Delivery Method Oxygen Flow Rate 3 3 02/14/24 17:22 02/14/24 17:24 02/14/24 17:24 Temperature 102.7 F H 102.6 F H Pulse Rate 114 H 113 H Respiratory Rate 26 H 27 H Blood Pressure 110/58 L Pulse Oximetry 96 96 Oxygen Delivery Method Oxygen Flow Rate 3 3 02/14/24 17:26 02/14/24 17:28 02/14/24 17:30 Temperature 102.6 F H 102.6 F H 102.6 F H Pulse Rate 110 H 107 H 105 H Respiratory Rate 27 H 27 H 27 H Blood Pressure Pulse Oximetry 96 95 95 Oxygen Delivery Method Oxygen Flow Rate 3 3 3 02/14/24 17:30 02/14/24 17:32 02/14/24 17:34 Temperature 102.6 F H 102.4 F H Pulse Rate 104 H 104 H Respiratory Rate 26 H 28 H Blood Pressure 93/50 L Pulse Oximetry 95 95 Oxygen Delivery Method Oxygen Flow Rate 3 3 02/14/24 17:35 02/14/24 17:35 02/14/24 17:36 Temperature 102.4 F H 102.4 F H Pulse Rate 103 H 103 H Respiratory Rate 27 H 26 H Blood Pressure 88/50 L Pulse Oximetry 95 96 Oxygen Delivery Method Oxygen Flow Rate 3 3 02/14/24 17:38 02/14/24 17:38 02/14/24 17:40 Temperature 102.4 F H 102.4 F H Pulse Rate 103 H 101 H Respiratory Rate 27 H 26 H Blood Pressure 86/51 L Pulse Oximetry 95 95 Oxygen Delivery Method Oxygen Flow Rate 3 3 02/14/24 17:40 02/14/24 17:42 02/14/24 17:43 Temperature 102.4 F H 102.2 F H Pulse Rate 101 H 101 H Respiratory Rate 24 27 H Blood Pressure 90/54 L Pulse Oximetry 96 96 Oxygen Delivery Method Nasal Cannula Nasal Cannula Oxygen Flow Rate 3 02/14/24 17:43 02/14/24 17:44 02/14/24 17:45 Temperature 102.2 F H 102.2 F H Pulse Rate 101 H 100 H Respiratory Rate 26 H 25 H Blood Pressure 91/60 Pulse Oximetry 94 94 Oxygen Delivery Method Nasal Cannula Nasal Cannula Oxygen Flow Rate 02/14/24 17:45 02/14/24 17:46 02/14/24 17:48 Temperature 102.2 F H 102.0 F H Pulse Rate 101 H 101 H Respiratory Rate 28 H 27 H Blood Pressure 94/51 L Pulse Oximetry 96 95 Oxygen Delivery Method Nasal Cannula Nasal Cannula Oxygen Flow Rate 3 02/14/24 17:48 02/14/24 17:50 02/14/24 17:50 Temperature 102.0 F H Pulse Rate 101 H Respiratory Rate 28 H Blood Pressure 99/55 L 99/57 L Pulse Oximetry 95 Oxygen Delivery Method Nasal Cannula Oxygen Flow Rate 3 02/14/24 17:53 02/14/24 17:53 02/14/24 17:55 Temperature 101.8 F H Pulse Rate 101 H Respiratory Rate 29 H Blood Pressure 94/57 L 101/59 L Pulse Oximetry 95 Oxygen Delivery Method Nasal Cannula Oxygen Flow Rate 3 02/14/24 17:55 02/14/24 17:58 02/14/24 17:58 Temperature 101.8 F H 101.7 F H Pulse Rate 102 H 101 H Respiratory Rate 26 H 24 Blood Pressure 95/52 L Pulse Oximetry 95 95 Oxygen Delivery Method Nasal Cannula Nasal Cannula Oxygen Flow Rate 3 3 02/14/24 18:00 02/14/24 18:00 02/14/24 18:02 Temperature 101.7 F H 101.5 F H Pulse Rate 101 H 101 H Respiratory Rate 26 H 28 H Blood Pressure 92/52 L Pulse Oximetry 96 96 Oxygen Delivery Method Nasal Cannula Oxygen Flow Rate 3 02/14/24 18:02 02/14/24 18:19 02/14/24 18:20 Temperature Pulse Rate 103 H 103 H Respiratory Rate 26 H Blood Pressure 88/55 L Pulse Oximetry 95 95 Oxygen Delivery Method Oxygen Flow Rate 02/14/24 18:23 02/14/24 18:23 02/14/24 18:25 Temperature Pulse Rate 103 H 103 H Respiratory Rate 26 H 29 H Blood Pressure 94/57 L Pulse Oximetry 96 95 Oxygen Delivery Method Oxygen Flow Rate 02/14/24 18:30 Temperature 100.9 F H Pulse Rate 103 H Respiratory Rate 25 H Blood Pressure Pulse Oximetry 94 Oxygen Delivery Method Oxygen Flow Rate Oxygen Delivery Method Nasal Cannula Oxygen Flow Rate 3 Objective Labs 02/16/24 11:30 02/16/24 11:30 Labs: Laboratory Results - last 24 hr 02/14/24 02/14/24 02/14/24 15:30 15:47 16:43 WBC 6.0 RBC 5.33 Hgb 15.0 Hct 44.2 MCV 82.9 MCH 28.2 MCHC 34.0 RDW 13.2 Plt Count 212 Neut % (Auto) 93.1 H Lymph % (Auto) 5.1 L [place] % (Auto) 1.3 L Eos % (Auto) 0.2 L Baso % (Auto) 0.3 Neut # (Auto) 5600 Lymph # (Auto) 300 L [place] # (Auto) 100 Eos # (Auto) 0 Baso # (Auto) 0 D-Dimer Sodium 136 L Potassium 3.8 Chloride 104 Carbon Dioxide 18 L BUN 21 H Creatinine 1.11 Estimated GFR > 60 BUN/Creatinine Ratio 18.9 Glucose 114 H Lactate 2.2 H Calcium 9.7 Magnesium 1.4 L Total Bilirubin 1.3 AST 34 ALT 25 Alkaline Phosphatase 153 H Ammonia Total Creatine Kinase 137 Troponin I < 0.012 Total Protein 7.2 Albumin 4.4 Globulin 2.8 Albumin/Globulin Ratio 1.6 Lipase 63 Procalcitonin 2.27 H Urine Color Dark yellow Urine Appearance Clear Urine pH 5.0 Ur Specific [place] 1.025 Urine Protein Trace H Urine Glucose (UA) Negative Urine Ketones 1+ H Urine Occult Blood Negative Urine Nitrate Negative Urine Bilirubin 1+ H Ur Bilirubin Confirm Positive H Urine Urobilinogen 1.0 Ur Leukocyte Esterase Negative Urine RBC 0-1/hpf Urine WBC 1-5/hpf Ur Squamous Epith Cells 5-10 /hpf H Urine Bacteria Moderate (10-30) H Urine Mucus 3+ H Ur Culture Indicated? Cult not indicated Vol Urine Centrifuged 10ml (spun) U Opiates 300ng/mL cut Positive H Ur Oxycodone Screen Negative Urine Methadone Screen Negative Ur Barbiturates Screen Negative U Tricyclic Antidepress Positive H Ur Phencyclidine Scrn Negative Ur Amphetamines Screen Positive H U Methamphetamines Scrn Negative Ur MDMA Scrn (Ecstasy) Negative U Benzodiazepines Scrn Positive H Urine Cocaine Screen Negative U Marijuana (THC) Screen Positive H Urine Specific [place] Ur Creatinine Chlamy pneumoniae PCR Adenovirus (PCR) B. pertussis DNA (PCR) B.parapertussis DNA PCR Coronavirus OC43 (PCR) Coronavirus HKU1 (PCR) Coronavirus 229E (PCR) SARS-CoV-2 (PCR) Coronavirus NL63 (PCR) Human Metapneumovir PCR Influenza Type A (PCR) Influenza Type B (PCR) M. pneumoniae (PCR) Parainfluenza 1 (PCR) Parainfluenza 2 (PCR) Parainfluenza 3 (PCR) Parainfluenza 4 (PCR) RSV (PCR) Entero/Rhino (PCR) 02/14/24 02/14/24 02/14/24 16:43 16:45 16:55 WBC RBC Hgb Hct MCV MCH MCHC RDW Plt Count Neut % (Auto) Lymph % (Auto) [place] % (Auto) Eos % (Auto) Baso % (Auto) Neut # (Auto) Lymph # (Auto) [place] # (Auto) Eos # (Auto) Baso # (Auto) D-Dimer Sodium Potassium Chloride Carbon Dioxide BUN Creatinine Estimated GFR BUN/Creatinine Ratio Glucose Lactate Calcium Magnesium Total Bilirubin AST ALT Alkaline Phosphatase [place]monia < 9 L Total Creatine Kinase Troponin I Total Protein Albumin Globulin Albumin/Globulin Ratio Lipase Procalcitonin Urine Color Urine Appearance Urine pH Normal Ur Specific [place] Urine Protein Urine Glucose (UA) Urine Ketones Urine Occult Blood Urine Nitrate Urine Bilirubin Ur Bilirubin Confirm Urine Urobilinogen Ur Leukocyte Esterase Urine RBC Urine WBC Ur Squamous Epith Cells Urine Bacteria Urine Mucus Ur Culture Indicated? Vol Urine Centrifuged U Opiates 300ng/mL cut Ur Oxycodone Screen Urine Methadone Screen Ur Barbiturates Screen U Tricyclic Antidepress Ur Phencyclidine Scrn Ur Amphetamines Screen U Methamphetamines Scrn Ur MDMA Scrn (Ecstasy) U Benzodiazepines Scrn Urine Cocaine Screen U Marijuana (THC) Screen Urine Specific [place] Normal Ur Creatinine Normal Chlamy pneumoniae PCR Not detected Adenovirus (PCR) Not detected B. pertussis DNA (PCR) Not detected B.parapertussis DNA PCR Not detected Coronavirus OC43 (PCR) Not detected Coronavirus HKU1 (PCR) Not detected Coronavirus 229E (PCR) Not detected SARS-CoV-2 (PCR) Not detected Coronavirus NL63 (PCR) Not detected Human Metapneumovir PCR Not detected Influenza Type A (PCR) Not detected Influenza Type B (PCR) Not detected M. pneumoniae (PCR) Not detected Parainfluenza 1 (PCR) Not detected Parainfluenza 2 (PCR) Not detected Parainfluenza 3 (PCR) Not detected Parainfluenza 4 (PCR) Not detected RSV (PCR) Not detected Entero/Rhino (PCR) Not detected 02/14/24 18:30 WBC RBC Hgb Hct MCV MCH MCHC RDW Plt Count Neut % (Auto) Lymph % (Auto) [place] % (Auto) Eos % (Auto) Baso % (Auto) Neut # (Auto) Lymph # (Auto) [place] # (Auto) Eos # (Auto) Baso # (Auto) D-Dimer 4043 H Sodium Potassium Chloride Carbon Dioxide BUN Creatinine Estimated GFR BUN/Creatinine Ratio Glucose Lactate 2.7 H Calcium Magnesium Total Bilirubin AST ALT Alkaline Phosphatase Ammonia Total Creatine Kinase Troponin I 0.015 Total Protein Albumin Globulin Albumin/Globulin Ratio Lipase Procalcitonin Urine Color Urine Appearance Urine pH Ur Specific [place] Urine Protein Urine Glucose (UA) Urine Ketones Urine Occult Blood Urine Nitrate Urine Bilirubin Ur Bilirubin Confirm Urine Urobilinogen Ur Leukocyte Esterase Urine RBC Urine WBC Ur Squamous Epith Cells Urine Bacteria Urine Mucus Ur Culture Indicated? Vol Urine Centrifuged U Opiates 300ng/mL cut Ur Oxycodone Screen Urine Methadone Screen Ur Barbiturates Screen U Tricyclic Antidepress Ur Phencyclidine Scrn Ur Amphetamines Screen U Methamphetamines Scrn Ur MDMA Scrn (Ecstasy) U Benzodiazepines Scrn Urine Cocaine Screen U Marijuana (THC) Screen Urine Specific [place] Ur Creatinine Chlamy pneumoniae PCR Adenovirus (PCR) B. pertussis DNA (PCR) B.parapertussis DNA PCR Coronavirus OC43 (PCR) Coronavirus HKU1 (PCR) Coronavirus 229E (PCR) SARS-CoV-2 (PCR) Coronavirus NL63 (PCR) Human Metapneumovir PCR Influenza Type A (PCR) Influenza Type B (PCR) M. pneumoniae (PCR) Parainfluenza 1 (PCR) Parainfluenza 2 (PCR) Parainfluenza 3 (PCR) Parainfluenza 4 (PCR) RSV (PCR) Entero/Rhino (PCR) Assessment & Plan Assessment & Plan narrative: 73 year old male admitted to ICU with AMS acute respiratory failure covid dehydration/volume depeletion shock, unclear etiology etoh withdrawal Suggest -check abg -Neurochecks/seizure precautions -ct head -[facility] protocol -thiamine/folate -monitor for refeeding syndrome -keep sat above 92% -ivf bolus -pressors prn -keep map above 65 -serial ekg/trop -check echo -broad spec ABX/cultures -monitor ins/outs -replace lytes prn -keep glucose 140-180s -diet as tolerated -gi/dvt ppx -please call eICU prn total ccm time 45 mins Time-Based Coding :: [TOTAL MINUTES] spent with patient and on the chart (including review of chart, obtaining history, exam, reviewing outside data, placing orders, documenting exam and treatment plan, and counseling patient) on [DATE].
[2024-02-14] MEDS: NOREPINEPHRINE BITARTRATE/D5W 4 MG/250 ML PLAST..BAG 28.917 MG IV (19:30)
--- NOTE | 2024-02-14 19:31 | PC.NURSE ---
Admit Note Patient arrived to room 227 at approx 1810, transferred via slider board. Restless, difficult to redirect, attempting to pull at lines and get out of bed. Oriented to room and to situation, oriented x0 at this time. Precedex infusing, Ativan 2 mg given per emar. On 2L NC with SpO2 95%. Roland catheter in place and draining scant clear yellow urine, temp 100.6. Bolus 2/2 is infusing. BP 80s/50s. reported to Dr. Bird and order obtained for Levophed. Seizure pads in place. Bed alarm on.
[2024-02-14] MEDS: VANCOMYCIN 1,500 MG/300 ML PIGGYBACK 200 MG IV (20:08)
[2024-02-14] MEDS: FAMOTIDINE 20 MG/2 ML VIAL IV (20:08)
[2024-02-14 20:12] LABS: MRSA (Nasal) PCR NOT DETECTED (Not Detect)
[2024-02-14] MEDS: HALOPERIDOL 5 MG/ML VIAL IV (20:13)
[2024-02-14] MEDS: dexmedeTOMIDine in 0.9 % NaCL 400 MCG/100 ML PLAST..BAG 28.917 MCG IV (20:56)
--- NOTE | 2024-02-14 21:32 | DI.RAD.S_ITS ---
PROCEDURE: XR CHEST 1V INDICATIONS: central line placement TECHNIQUE: One view of the chest was acquired. COMPARISON: [facility], , XR CHEST 1V, 02/14/2024, 15:23. FINDINGS: Surgical changes and devices: Right-sided central venous catheter is present distal tip projecting over the mid/distal SVC. Lungs and pleura: Mild increased vascularity. No pneumothorax. Mediastinum: Mediastinal contours appear normal. Heart size is enlarged. Bones and chest wall: No suspicious bony lesions. Overlying soft tissues appear unremarkable. IMPRESSION: Central venous catheter is above. Dictated by: Gail Mcnair M.D. on 02/14/2024 at 22:00 Approved by: Gail Mcnair M.D. on 02/14/2024 at 22:01
--- NOTE | 2024-02-14 21:37 | PM.PROC.1 ---
Procedures Date/Time Date of procedure: 02/14/24 Time of procedure: 21:40 Central Line Placement Time out performed: Yes Patient placed on monitor/pulse ox: Yes MD prep: mask, gown and gloves Central line prep: Chlorhexidine scrub and sterile drapes applied Local anesthesia used: lidocaine 1% Amount of anesthesia used (ml): 3 Ultrasound used for placement: Yes Central line lumen inserted: triple Post procedure: good blood return, all ports aspirated, flushed, capped and sterile dressing applied Patient tolerated procedure: well and no complications Complications: none Additional comments: Central line request for CIWA pt, hypotensive on pressors, suspected sepsis. Pt sedated, NCO2, tolerated procedure well. CXR confirmed central placement.
[2024-02-14 22:35] LABS: Allen Test for ABG Passed? Positive; Base Excess ABG -6.9 mmol/L (-2-3); Blood Gas Collection Site Left Radial; HCO3 ABG 18 mmol/L (23-27); Oxygen Saturation ABG 91 % (95-100); PCO2 ABG 32.8 mmHg (35-45); PO2 ABG 63 mmHg (80-100); TCO2 ABG 18 mmol/L (23-27); pH ABG 7.35 (7.35-7.45)
[2024-02-14 22:48] LABS: Lactate (Lactic Acid) 1.9 mmol/L (0.7-2.1)
--- NOTE | 2024-02-14 22:54 | PC.NURSE ---
Assumed care of patient at 1900. Patient requiring pressors due to hypotention, initiated at 1930. Anesthesia called in for central line placement, right IJ completed with provider authorized to use at 2200. Patient on 5L by oxymask for mouth breathing and snoring, O2 sat 97%.
[2024-02-15] VITALS (109 sets, daily range): BP systolic 91–140; BP diastolic 51–75; PULSE 100–115; RESP 10–36; TEMP 36.9–38.2; O2SAT 88–97
[2024-02-15] MEDS: dexmedeTOMIDine in 0.9 % NaCL 400 MCG/100 ML PLAST..BAG 28.917 MCG IV ×5 (00:32→13:58)
[2024-02-15] MEDS: NOREPINEPHRINE BITARTRATE/D5W 4 MG/250 ML PLAST..BAG 43.375 MG IV ×4 (01:48→18:09)
[2024-02-15] MEDS: HALOPERIDOL 5 MG/ML VIAL IV ×5 (01:50→11:27)
[2024-02-15] MEDS: SODIUM CHLORIDE 0.9% 1,000 ML 100 ML IV (03:28)
--- NOTE | 2024-02-15 03:55 | PC.NURSE ---
Notified hospitalist for positive blood culture, gram positive cocci in chains in anaerobic bottle.
[2024-02-15 04:48] LABS: Acinetobacter calcoa-baumannii Not Detected (Not Detect); Bacteroides fragilis Not Detected (Not Detect); Candida albicans Not Detected (Not Detect); Candida auris Not Detected (Not Detect); Candida glabrata Not Detected (Not Detect); Candida krusei Not Detected (Not Detect); Candida parapsilosis Not Detected (Not Detect); Candida tropicalis Not Detected (Not Detect); Cryptococcus neoformans/gatti Not Detected (Not Detect); Enterobacter cloacae complex Not Detected (Not Detect); Enterobacterales Not Detected (Not Detect); Enterococcus faecalis Not Detected (Not Detect); Enterococcus faecium Not Detected (Not Detect); Haemophilus influenzae Not Detected (Not Detect); Klebsiella aerogenes Not Detected (Not Detect); Listeria monocytogenes Not Detected (Not Detect); Neisseria meningitidis Not Detected (Not Detect); Proteus species Not Detected (Not Detect); Pseudomonas aeruginosa Not Detected (Not Detect); Salmonella species Not Detected (Not Detect); Serratia marcescens Not Detected (Not Detect); Staphylococcus epidermidis Not Detected (Not Detect); Staphylococcus lugdunensis Not Detected (Not Detect); Staphylococcus species Not Detected (Not Detect); Stenotrophomonas maltophilia Not Detected (Not Detect); Streptococcus agalactiae (Gr B Not Detected (Not Detect); Streptococcus pneumonia Not Detected (Not Detect); Streptococcus pyogenes (Gr A) Detected (Not Detect); Streptococcus species Detected (Not Detect)
--- NOTE | 2024-02-15 04:48 | PC.NURSE ---
Per provider, patient is covered for gram pos cocci by current abx regimen.
[2024-02-15 05:37] LABS: Alanine Aminotransferase 24 IU/L (<50); Albumin 2.7 g/dL (3.5-5.0); Alkaline Phosphatase 83 U/L (38-126); Aspartate Aminotransferase 41 IU/L (17-59); BUN Creatinine Ratio 21.5 (6-22); Bilirubin Total 0.7 mg/dL (0.2-1.3); Blood Urea Nitrogen 23 mg/dL (9-20); Calcium 7.7 mg/dL (8.4-10.2); Carbon Dioxide 18 mmol/L (22-32); Chloride 109 mmol/L (98-107); Estimated Glomerular Filt Rate > 60 mL/min (>60); Globulin 2.8 g/dL (1.7-4.1); Glucose 120 mg/dL (80-110); HEMOLYSIS < 15 (0-50); Potassium 3.5 mmol/L (3.4-5.1); Sodium 133 mmol/L (137-145); Total Protein 5.5 g/dL (6.3-8.2)
[2024-02-15 05:42] LABS: Mean Corpuscular HGB Conc 33.4 % (30-36); Mean Corpuscular Hemoglobin 28.2 PG (26-34); Mean Corpuscular Volume 84.6 fL (80-100); Platelet Count 219 X10^3/uL (150-400); Red Blood Cell Count 4.62 X10^6/uL (4.5-5.9); Red Cell Distribution Width 13.2 % (11.6-14.8)
[2024-02-15 06:07] LABS: Add Manual Diff / Slide Review YES
--- NOTE | 2024-02-15 06:28 | PC.NURSE ---
During patient check, noted drainage on linen, PIV appeared to be leaking even though it wasn't in use. When arm was moved discovered large seeping blister to inner elbow and smaller skin tear with seeping to back of elbow. Bruising is also significantly worse. PIV had been in use for levophed from 1929 to 2199 while waiting for central line placement. Once central line established, PIV use was discontinued. PIV was removed and arm was dressed in two allevyns and coban. Provider made aware of changes to patient's arm.
--- NOTE | 2024-02-15 06:33 | PC.NURSE ---
Addendum entered by Fiona Domniguez R.N. 02/15/24 06:35: See attached photos Original Note: During patient check, noted drainage on linen, PIV appeared to be leaking even though it wasn't in use. When arm was moved discovered large seeping blister to inner elbow and smaller skin tear with seeping to back of elbow. Bruising is also significantly worse. PIV had been in use for levophed from 1929 to 2199 while waiting for central line placement. Once central line established, PIV use was discontinued. PIV was removed and arm was dressed in two allevyns and coban. Provider made aware of changes to patient's arm.
[2024-02-15 06:39] LABS: Neutrophils Absolute Manual 18260 /uL (3000-5900); Total Cells Counted 100
[2024-02-15 06:40] LABS: RBC Morphology Normal Morphology
[2024-02-15 06:41] LABS: Dohle Bodies 1+; Toxic Vacuolation Present
[2024-02-15] MEDS: CEFEPIME 2 GM in SODIUM CHLORIDE 0.9% 100 ML IV ×2 (06:50→19:45)
[2024-02-15] MEDS: HYDROMORPHONE 0.5 MG INJ IV ×2 (06:57→11:26)
--- NOTE | 2024-02-15 07:53 | DI.ECHO.S_ITS ---
[facility] : : [address] : : [place] : : [id number] : : Phone: [phone] Echocardiogram Report + + :Name: ALEJANDRA ESTRADA Study Date: 02/15/2024 Height: 68 in : :[facility] ReadingLocation: Weight: 173 lb: : Gender: Male BSA: 1.9 m2 : :: 1950 Age: 73 yrs BP: 99/60 mmHg: :Reason For Study: SHOCK : :Ordering Physician: ABEL, : :HONORIO Gutierrez Performed By: Tina Estrada : :Referring: HONORIO ROMAN : + + Interpretation Summary 1. The left ventricular contractility is mildly compromised. Estimate ejection fraction is 40 to 45% with global hypokinesis. No LVH. Unable to comment on diastolic function. 2. The right ventricle was not well-visualized. However in limited views the right ventricular contractility appears borderline. 3. All cardiac chambers are of normal size. 4. No significant valvular abnormalities. 5. No obvious intracardiac shunts. 6. No obvious intracardiac masses nor thrombi. 7. No hemodynamically significant pericardial effusion. 8. Low right-sided filling pressures. Conclusion: Mildly compromised biventricular systolic function with no significant valvular abnormalities. Procedure: A two-dimensional transthoracic echocardiogram with color flow and Doppler was performed. The study quality was technically adequate. There is no prior echocardiogram noted for this patient. The patient was in sinus tachycardia with heart rates between 111-116 bpm during the exam. Left Ventricle: The left ventricle is normal in size and wall thickness. Left ventricular ejection fraction is estimated to be 45 +/- 5%. Right Ventricle: The right ventricle is normal size. Right ventricular systolic function is borderline reduced. Atria: The left atrial size is normal. Right atrial size is normal. There is no Doppler evidence for an interatrial shunt. Mitral Valve: The mitral valve leaflets appear mildly thickened, but open well. There is mild mitral annular calcification. There is trace mitral regurgitation. Aortic Valve: The aortic valve is trileaflet. The aortic valve opens well. There is no aortic valve stenosis. No aortic regurgitation is present. Tricuspid Valve: The tricuspid valve is normal in structure and function. No tricuspid regurgitation. Pulmonic Valve: The pulmonic valve leaflets are thin and pliable; valve motion is normal. There is no pulmonic valvular regurgitation. Great Vessels: The aortic root is normal size. The dimensions of the ascending aorta are normal. The IVC is of normal diameter and collapses greater than 50% with a sniff. This suggests a low right atrial pressure of 3 mm Hg. Pericardium/ Pleura There is a trivial pericardial effusion noted. There is no pleural effusion. MMode/2D Measurements & Calculations LVIDd: 5.7 cm LVOT diam: 2.2 cm LVIDs: 4.6 cm Ao root diam: 3.7 cm FS: 19.3 % asc Aorta Diam: 3.8 cm EPSS: 0.84 cm IVSd: 0.96 cm LVPWd: 1.0 cm LV anthony. diameter/BSA (cm/m^2): 3.0 LV sys. diameter/BSA (cm/m^2): 2.4 LA A2 area: 21.9 cm2 RA long axis: 5.3 cm LA A4 area: 19.7 cm2 RA area: 14.3 cm2 LA length (vol): 6.0 cm RA vol: 33.2 ml LA vol: 60.6 ml RA : 17.3 ml/m2 LA vol index: 31.6 ml/m2 IVC diam: 1.9 cm RVD1 (basal): 3.8 cm RVD2 (mid): 2.9 cm TAPSE: 1.7 cm Doppler Measurements & Calculations Ao V2 max: 186.5 cm/sec LVOT Max Bill: 99.3 cm/sec Ao V2 mean: 131.7 cm/sec LV V1 max P.9 mmHg Ao max P.9 mmHg LV V1 VTI: 15.1 cm Ao mean P.6 mmHg MELVIN(I,D): 2.1 cm2 Ao V2 VTI: 28.7 cm MELVIN(V,D): 2.1 cm2 sev ratio: 0.53 MELVIN indexed to BSA (cm^2/m^2): 1.1 MV E max bill: 44.3 cm/sec PA V2 max: 113.9 cm/sec MV A max bill: 60.8 cm/sec PA V2 mean: 80.4 cm/sec MV E/A: 0.73 PA mean P.9 mmHg Med Peak E' Bill: 11.1 cm/sec PA pr(Accel): 41.7 mmHg E/E' med: 4.0 Lat Peak E' Bill: 9.4 cm/sec E/E' lat: 4.7 E/e' average: 4.4 MV dec time: 0.17 sec SVLVOT): 59.7 ml Reading Physician:
--- NOTE | 2024-02-15 07:54 | P.PN_ITS ---
Subjective Subjective Interval history: Summary: patient is a 73-year-old male who presented to the hospital with fever and confusion and a recent positive COVID test. Chest x-ray was unremarkable but he did appear to be in withdrawal. He does have a history of alcohol use on a daily basis. Initially he was treated with antipyretics, antibiotics, and measures for acute alcohol withdrawal and agitation in the emergency department. He was transferred to the floor with a temperature of 103? and low urine output. Fluid boluses were started upon his arrival at approximately 6:30 p.m.. The patient's initial blood pressure was soft but his map was over 65. The patient was stable on an oxygen mask and he was antibiotics were broadened to cefepime and vancomycin. Short time later he became hypotensive and peripheral norepinephrine was started to bridge until central access could be obtained. The patient developed a local extravasation reaction on his posterior forearm, and a central line was placed approximately 2 hours after his arrival to the CCU. The patient improved overnight but remains encephalopathic. His fever has broken and his white count is quite elevated today. He had improvement in blood pressure and is on a lower dose of norepinephrine via central venous catheter. The patient has a negative urinalysis. His initial chest x-ray was unremarkable, his repeat x-ray this morning reveals mild pulmonary edema. An echo was obtained, final read not back yet. His LV EF does appear depressed to my read about 35-40%. His notes a distant history of heart attack with normal coronary angiogram in [facility]. Patient also uses pain medications and was found to have poor response to Ativan overnight but better response to hydromorphone. He was lactic acid is normalized in 1/2 blood cultures is positive for Gram-positive cocci in chains. He did have URI symptoms leading up to this in his sore throat. S: not obtainable due to mental status alteration. Exam Vital Signs (past 8 hours): - 02/14/24 23:55 02/15/24 00:00 02/15/24 00:00 Temperature 98.6 F 98.6 F Pulse Rate 108 H 108 H Respiratory Rate 24 23 Blood Pressure 108/63 Pulse Oximetry 96 96 Oxygen Delivery Method Oxygen Flow Rate 02/15/24 00:05 02/15/24 00:10 02/15/24 00:15 Temperature 98.6 F 98.6 F Pulse Rate 109 H 109 H Respiratory Rate 24 23 Blood Pressure 106/67 Pulse Oximetry 95 96 Oxygen Delivery Method Oxygen Flow Rate 02/15/24 00:15 02/15/24 00:20 02/15/24 00:25 Temperature 98.6 F 98.6 F 98.6 F Pulse Rate 109 H 109 H 109 H Respiratory Rate 24 24 24 Blood Pressure Pulse Oximetry 95 95 95 Oxygen Delivery Method Oxygen Flow Rate 5 02/15/24 00:30 02/15/24 00:30 02/15/24 00:45 Temperature 98.6 F Pulse Rate 109 H Respiratory Rate 24 Blood Pressure 102/63 106/67 Pulse Oximetry 95 Oxygen Delivery Method Oxygen Flow Rate 02/15/24 00:45 02/15/24 01:00 02/15/24 01:00 Temperature 98.6 F 98.6 F Pulse Rate 109 H 109 H Respiratory Rate 24 24 Blood Pressure 112/64 Pulse Oximetry 95 95 Oxygen Delivery Method Oxygen Flow Rate 02/15/24 01:15 02/15/24 01:15 02/15/24 01:30 Temperature 98.8 F Pulse Rate 109 H Respiratory Rate 25 H Blood Pressure 109/63 115/66 Pulse Oximetry 91 Oxygen Delivery Method Oxygen Flow Rate 3 02/15/24 01:30 02/15/24 01:45 02/15/24 01:49 Temperature 98.8 F 98.8 F 98.8 F Pulse Rate 109 H 100 H 100 H Respiratory Rate 26 H 29 H 32 H Blood Pressure Pulse Oximetry 92 91 93 Oxygen Delivery Method Oxygen Flow Rate 02/15/24 01:49 02/15/24 02:00 02/15/24 02:00 Temperature Pulse Rate Respiratory Rate Blood Pressure 102/63 104/61 Pulse Oximetry Oxygen Delivery Method Oximask Oxygen Flow Rate 02/15/24 02:00 02/15/24 02:15 02/15/24 02:15 Temperature 99.0 F 98.8 F Pulse Rate 107 H 109 H Respiratory Rate 26 H 25 H Blood Pressure 104/62 Pulse Oximetry 93 92 Oxygen Delivery Method Oxygen Flow Rate 3 02/15/24 02:30 02/15/24 02:30 02/15/24 02:45 Temperature 98.8 F 98.8 F Pulse Rate 109 H 109 H Respiratory Rate 27 H 27 H Blood Pressure 106/64 Pulse Oximetry 92 93 Oxygen Delivery Method Oxygen Flow Rate 02/15/24 02:45 02/15/24 03:00 02/15/24 03:00 Temperature 98.8 F Pulse Rate 109 H Respiratory Rate 26 H Blood Pressure 103/62 101/63 Pulse Oximetry 92 Oxygen Delivery Method Oxygen Flow Rate 02/15/24 03:15 02/15/24 03:15 02/15/24 03:15 Temperature 98.8 F 98.8 F Pulse Rate 109 H 109 H Respiratory Rate 26 H 26 H Blood Pressure 111/63 Pulse Oximetry 92 92 Oxygen Delivery Method Oxygen Flow Rate 3 02/15/24 03:30 02/15/24 03:30 02/15/24 03:45 Temperature 98.8 F Pulse Rate 109 H Respiratory Rate 27 H Blood Pressure 105/61 104/63 Pulse Oximetry 92 Oxygen Delivery Method Oxygen Flow Rate 02/15/24 03:45 02/15/24 04:00 02/15/24 04:00 Temperature 98.8 F 99.0 F Pulse Rate 109 H 109 H Respiratory Rate 26 H 27 H Blood Pressure 96/58 L Pulse Oximetry 92 92 Oxygen Delivery Method Oxygen Flow Rate 02/15/24 04:15 02/15/24 04:15 02/15/24 04:30 Temperature 99.0 F Pulse Rate 108 H Respiratory Rate 26 H Blood Pressure 98/63 102/64 Pulse Oximetry 92 Oxygen Delivery Method Oxygen Flow Rate 02/15/24 04:30 02/15/24 04:45 02/15/24 04:45 Temperature 99.0 F 99.0 F Pulse Rate 109 H 108 H Respiratory Rate 27 H 26 H Blood Pressure 108/64 Pulse Oximetry 92 91 Oxygen Delivery Method Oxygen Flow Rate 3 02/15/24 05:00 02/15/24 05:00 02/15/24 05:15 Temperature 99.0 F Pulse Rate 107 H Respiratory Rate 26 H Blood Pressure 110/63 110/67 Pulse Oximetry 92 Oxygen Delivery Method Oxygen Flow Rate 3 02/15/24 05:15 02/15/24 05:30 02/15/24 05:30 Temperature 99.1 F 99.1 F Pulse Rate 107 H 106 H Respiratory Rate 27 H 27 H Blood Pressure 101/63 Pulse Oximetry 93 93 Oxygen Delivery Method Oxygen Flow Rate 02/15/24 05:45 02/15/24 05:45 02/15/24 06:00 Temperature 99.1 F Pulse Rate 104 H Respiratory Rate 27 H Blood Pressure 102/62 111/67 Pulse Oximetry 94 Oxygen Delivery Method Oxygen Flow Rate 02/15/24 06:00 Temperature 99.1 F Pulse Rate 104 H Respiratory Rate 27 H Blood Pressure Pulse Oximetry 95 Oxygen Delivery Method Oxygen Flow Rate 3 Oxygen Delivery Method Oximask Oxygen Flow Rate 3 Narrative Exam Narrative: Confused and in moderate distress. Tachypnea. Simple mask. Opens eyes and tracks when asked to. Lungs are Rhonchorous with some intermittent stridor. He was increased effort and rate of respirations but is improved compared to last night. Heart is regular, no murmur gallop or rub. He was tachycardic but improved from Last night. Abdomen is soft, and distended. Extremities are free of edema. He does have obvious skin sloughing with extravasation injury on the right arm in the posterior aspect of the forearm up to just above the elbow. There is some skin sloughing and ecchymosis. He was a good radial pulse. Digits are unremarkable. He moves arms and legs spontaneously, his gaze is conjugate. Objective Imaging Chest x-ray: My impression: Pulmonary edema Echo: Radiologist's impression: 1. The left ventricular contractility is mildly compromised. Estimate ejection fraction is 40 to 45% with global hypokinesis. No LVH. Unable to comment on diastolic function. 2. The right ventricle was not well-visualized. However in limited views the right ventricular contractility appears borderline. 3. All cardiac chambers are of normal size. 4. No significant valvular abnormalities. 5. No obvious intracardiac shunts. 6. No obvious intracardiac masses nor thrombi. 7. No hemodynamically significant pericardial effusion. 8. Low right-sided filling pressures. Conclusion: Mildly compromised biventricular systolic function with no significant valvular abnormalities. Labs 02/15/24 05:14 02/15/24 05:14 Labs: Laboratory Results - last 24 hr 02/14/24 02/14/24 02/14/24 15:30 15:47 16:25 WBC 6.0 RBC 5.33 Hgb 15.0 Hct 44.2 MCV 82.9 MCH 28.2 MCHC 34.0 RDW 13.2 Plt Count 212 Neut % (Auto) 93.1 H Lymph % (Auto) 5.1 L [place] % (Auto) 1.3 L Eos % (Auto) 0.2 L Baso % (Auto) 0.3 Neut # (Auto) 5600 Lymph # (Auto) 300 L [place] # (Auto) 100 Eos # (Auto) 0 Baso # (Auto) 0 Total Counted Seg Neutrophils % Band Neutrophils % Lymphocytes % (Manual) Monocytes % (Manual) Metamyelocytes % Myelocytes % Neutrophils # (Manual) Toxic Vacuolation Dohle Bodies RBC Morphology D-Dimer ABG Sample Site ABG pH ABG pCO2 ABG pO2 ABG HCO3 ABG Total CO2 ABG O2 Saturation ABG Base Excess Johnnie Test Sodium 136 L Potassium 3.8 Chloride 104 Carbon Dioxide 18 L BUN 21 H Creatinine 1.11 Estimated GFR > 60 BUN/Creatinine Ratio 18.9 Glucose 114 H Lactate 2.2 H Calcium 9.7 Magnesium 1.4 L Total Bilirubin 1.3 AST 34 ALT 25 Alkaline Phosphatase 153 H Ammonia Total Creatine Kinase 137 Troponin I < 0.012 Total Protein 7.2 Albumin 4.4 Globulin 2.8 Albumin/Globulin Ratio 1.6 Lipase 63 Procalcitonin 2.27 H Urine Color Urine Appearance Urine pH Ur Specific [place] Urine Protein Urine Glucose (UA) Urine Ketones Urine Occult Blood Urine Nitrate Urine Bilirubin Ur Bilirubin Confirm Urine Urobilinogen Ur Leukocyte Esterase Urine RBC Urine WBC Ur Squamous Epith Cells Urine Bacteria Urine Mucus Ur Culture Indicated? Vol Urine Centrifuged Nasal Screen MRSA (PCR) U Opiates 300ng/mL cut Ur Oxycodone Screen Urine Methadone Screen Ur Barbiturates Screen U Tricyclic Antidepress Ur Phencyclidine Scrn Ur Amphetamines Screen U Methamphetamines Scrn Ur MDMA Scrn (Ecstasy) U Benzodiazepines Scrn Urine Cocaine Screen U Marijuana (THC) Screen Urine Specific [place] Ur Creatinine A.calcoaceticus-baumannii cmplx PCR Not detected Chlamy pneumoniae PCR Adenovirus (PCR) Bacteroides fragilis Not detected B. pertussis DNA (PCR) B.parapertussis DNA PCR Kimberly albicans (PCR) Not detected Kimberly auris (PCR) Not detected C. glabrata (PCR) Not detected C. krusei (PCR) Not detected C. parapsilosis (PCR) Not detected C. tropicalis (PCR) Not detected Coronavirus OC43 (PCR) Coronavirus HKU1 (PCR) Coronavirus 229E (PCR) SARS-CoV-2 (PCR) Coronavirus NL63 (PCR) C. neoform/gattii (PCR) Not detected Enterobacterales (PCR) Not detected E. cloacae complex PCR Not detected Enterococc faecalis PCR Not detected Enterococc faecium PCR Not detected E. coli (PCR) Not detected H. influenzae (PCR) Not detected Human Metapneumovir PCR Influenza Type A (PCR) Influenza Type B (PCR) Klebsiella aerogenes (PCR) Not detected Klebsiella oxytoca PCR Not detected Klebsiella pneumoniae Not detected List. monocytogenes PCR Not detected M. pneumoniae (PCR) N. meningitidis (PCR) Not detected Parainfluenza 1 (PCR) Parainfluenza 2 (PCR) Parainfluenza 3 (PCR) Parainfluenza 4 (PCR) Proteus species (PCR) Not detected RSV (PCR) Entero/Rhino (PCR) Salmonella spp. (PCR) Not detected Serratia marcescens PCR Not detected Staphylococcus sp PCR Not detected Staph aureus (PCR) Not detected mecA/C & MREJ Resist Gene Not applicable mecA/C-Methicil Resis Gene Not applicable mcr-1 Colistin Res Gene PCR Not applicable Staph epidermidis (PCR) Not detected Staph lugdunensis PCR Not detected S. maltophilia (PCR) Not detected Streptococcus sp PCR Detected Group A Strep (PCR) Detected Strep agalactiae (PCR) Not detected Strep pneumoniae (PCR) Not detected P. aeruginosa (PCR) Not detected Neil/B-Vanco Res Genes Not applicable blaIMP Car res Gene PCR Not applicable KPC-Carbap Res Gene PCR Not applicable blaNDM Car Res Gene PCR Not applicable OXA-48 Carbapenem Resis Gene (PCR) Not applicable blaVIM Car Res Gene PCR Not applicable CTX-M Gene Resistance (PCR) Not applicable 02/14/24 02/14/24 02/14/24 16:43 16:43 16:45 WBC RBC Hgb Hct MCV MCH MCHC RDW Plt Count Neut % (Auto) Lymph % (Auto) [place] % (Auto) Eos % (Auto) Baso % (Auto) Neut # (Auto) Lymph # (Auto) [place] # (Auto) Eos # (Auto) Baso # (Auto) Total Counted Seg Neutrophils % Band Neutrophils % Lymphocytes % (Manual) Monocytes % (Manual) Metamyelocytes % Myelocytes % Neutrophils # (Manual) Toxic Vacuolation Dohle Bodies RBC Morphology D-Dimer ABG Sample Site ABG pH ABG pCO2 ABG pO2 ABG HCO3 ABG Total CO2 ABG O2 Saturation ABG Base Excess Johnnie Test Sodium Potassium Chloride Carbon Dioxide BUN Creatinine Estimated GFR BUN/Creatinine Ratio Glucose Lactate Calcium Magnesium Total Bilirubin AST ALT Alkaline Phosphatase Ammonia < 9 L Total Creatine Kinase Troponin I Total Protein Albumin Globulin Albumin/Globulin Ratio Lipase Procalcitonin Urine Color Dark yellow Urine Appearance Clear Urine pH 5.0 Normal Ur Specific [place] 1.025 Urine Protein Trace H Urine Glucose (UA) Negative Urine Ketones 1+ H Urine Occult Blood Negative Urine Nitrate Negative Urine Bilirubin 1+ H Ur Bilirubin Confirm Positive H Urine Urobilinogen 1.0 Ur Leukocyte Esterase Negative Urine RBC 0-1/hpf Urine WBC 1-5/hpf Ur Squamous Epith Cells 5-10 /hpf H Urine Bacteria Moderate (10-30) H Urine Mucus 3+ H Ur Culture Indicated? Cult not indicated Vol Urine Centrifuged 10ml (spun) Nasal Screen MRSA (PCR) U Opiates 300ng/mL cut Positive H Ur Oxycodone Screen Negative Urine Methadone Screen Negative Ur Barbiturates Screen Negative U Tricyclic Antidepress Positive H Ur Phencyclidine Scrn Negative Ur Amphetamines Screen Positive H U Methamphetamines Scrn Negative Ur MDMA Scrn (Ecstasy) Negative U Benzodiazepines Scrn Positive H Urine Cocaine Screen Negative U Marijuana (THC) Screen Positive H Urine Specific [place] Normal Ur Creatinine Normal A.calcoaceticus-baumannii cmplx PCR Chlamy pneumoniae PCR Adenovirus (PCR) Bacteroides fragilis B. pertussis DNA (PCR) B.parapertussis DNA PCR Kimberly albicans (PCR) Kimberly auris (PCR) C. glabrata (PCR) C. krusei (PCR) C. parapsilosis (PCR) C. tropicalis (PCR) Coronavirus OC43 (PCR) Coronavirus HKU1 (PCR) Coronavirus 229E (PCR) SARS-CoV-2 (PCR) Coronavirus NL63 (PCR) C. neoform/gattii (PCR) Enterobacterales (PCR) E. cloacae complex PCR Enterococc faecalis PCR Enterococc faecium PCR E. coli (PCR) H. influenzae (PCR) Human Metapneumovir PCR Influenza Type A (PCR) Influenza Type B (PCR) Klebsiella aerogenes (PCR) Klebsiella oxytoca PCR Klebsiella pneumoniae List. monocytogenes PCR M. pneumoniae (PCR) N. meningitidis (PCR) Parainfluenza 1 (PCR) Parainfluenza 2 (PCR) Parainfluenza 3 (PCR) Parainfluenza 4 (PCR) Proteus species (PCR) RSV (PCR) Entero/Rhino (PCR) Salmonella spp. (PCR) Serratia marcescens PCR Staphylococcus sp PCR Staph aureus (PCR) mecA/C & MREJ Resist Gene mecA/C-Methicil Resis Gene mcr-1 Colistin Res Gene PCR Staph epidermidis (PCR) Staph lugdunensis PCR S. maltophilia (PCR) Streptococcus sp PCR Group A Strep (PCR) Strep agalactiae (PCR) Strep pneumoniae (PCR) P. aeruginosa (PCR) Neil/B-Vanco Res Genes blaIMP Car res Gene PCR KPC-Carbap Res Gene PCR blaNDM Car Res Gene PCR OXA-48 Carbapenem Resis Gene (PCR) blaVIM Car Res Gene PCR CTX-M Gene Resistance (PCR) 02/14/24 02/14/24 02/14/24 16:55 18:20 18:30 WBC RBC Hgb Hct MCV MCH MCHC RDW Plt Count Neut % (Auto) Lymph % (Auto) [place] % (Auto) Eos % (Auto) Baso % (Auto) Neut # (Auto) Lymph # (Auto) [place] # (Auto) Eos # (Auto) Baso # (Auto) Total Counted Seg Neutrophils % Band Neutrophils % Lymphocytes % (Manual) Monocytes % (Manual) Metamyelocytes % Myelocytes % Neutrophils # (Manual) Toxic Vacuolation Dohle Bodies RBC Morphology D-Dimer 4043 H ABG Sample Site ABG pH ABG pCO2 ABG pO2 ABG HCO3 ABG Total CO2 ABG O2 Saturation ABG Base Excess Johnnie Test Sodium Potassium Chloride Carbon Dioxide BUN Creatinine Estimated GFR BUN/Creatinine Ratio Glucose Lactate 2.7 H Calcium Magnesium Total Bilirubin AST ALT Alkaline Phosphatase Ammonia Total Creatine Kinase Troponin I 0.015 Total Protein Albumin Globulin Albumin/Globulin Ratio Lipase Procalcitonin Urine Color Urine Appearance Urine pH Ur Specific [place] Urine Protein Urine Glucose (UA) Urine Ketones Urine Occult Blood Urine Nitrate Urine Bilirubin Ur Bilirubin Confirm Urine Urobilinogen Ur Leukocyte Esterase Urine RBC Urine WBC Ur Squamous Epith Cells Urine Bacteria Urine Mucus Ur Culture Indicated? Vol Urine Centrifuged Nasal Screen MRSA (PCR) Not detected U Opiates 300ng/mL cut Ur Oxycodone Screen Urine Methadone Screen Ur Barbiturates Screen U Tricyclic Antidepress Ur Phencyclidine Scrn Ur Amphetamines Screen U Methamphetamines Scrn Ur MDMA Scrn (Ecstasy) U Benzodiazepines Scrn Urine Cocaine Screen U Marijuana (THC) Screen Urine Specific [place] Ur Creatinine A.calcoaceticus-baumannii cmplx PCR Chlamy pneumoniae PCR Not detected Adenovirus (PCR) Not detected Bacteroides fragilis B. pertussis DNA (PCR) Not detected B.parapertussis DNA PCR Not detected Kimberly albicans (PCR) Kimberly auris (PCR) C. glabrata (PCR) C. krusei (PCR) C. parapsilosis (PCR) C. tropicalis (PCR) Coronavirus OC43 (PCR) Not detected Coronavirus HKU1 (PCR) Not detected Coronavirus 229E (PCR) Not detected SARS-CoV-2 (PCR) Not detected Coronavirus NL63 (PCR) Not detected C. neoform/gattii (PCR) Enterobacterales (PCR) E. cloacae complex PCR Enterococc faecalis PCR Enterococc faecium PCR E. coli (PCR) H. influenzae (PCR) Human Metapneumovir PCR Not detected Influenza Type A (PCR) Not detected Influenza Type B (PCR) Not detected Klebsiella aerogenes (PCR) Klebsiella oxytoca PCR Klebsiella pneumoniae List. monocytogenes PCR M. pneumoniae (PCR) Not detected N. meningitidis (PCR) Parainfluenza 1 (PCR) Not detected Parainfluenza 2 (PCR) Not detected Parainfluenza 3 (PCR) Not detected Parainfluenza 4 (PCR) Not detected Proteus species (PCR) RSV (PCR) Not detected Entero/Rhino (PCR) Not detected Salmonella spp. (PCR) Serratia marcescens PCR Staphylococcus sp PCR Staph aureus (PCR) mecA/C & MREJ Resist Gene mecA/C-Methicil Resis Gene mcr-1 [place] Res Gene PCR Staph epidermidis (PCR) Staph lugdunensis PCR S. maltophilia (PCR) Streptococcus sp PCR Group A Strep (PCR) Strep agalactiae (PCR) Strep pneumoniae (PCR) P. aeruginosa (PCR) Neil/B-Vanco Res Genes blaIMP Car res Gene PCR KPC-Carbap Res Gene PCR blaNDM Car Res Gene PCR OXA-48 Carbapenem Resis Gene (PCR) blaVIM Car Res Gene PCR CTX-M Gene Resistance (PCR) 02/14/24 02/14/24 02/15/24 22:16 22:28 05:14 WBC 22.0 H D RBC 4.62 Hgb 13.0 L Hct 39.0 L MCV 84.6 MCH 28.2 MCHC 33.4 RDW 13.2 Plt Count 219 Neut % (Auto) Not Reportable Lymph % (Auto) Not Reportable [place] % (Auto) Not Reportable Eos % (Auto) Not Reportable Baso % (Auto) Not Reportable Neut # (Auto) Lymph # (Auto) Not Reportable [place] # (Auto) Not Reportable Eos # (Auto) Baso # (Auto) Not Reportable Total Counted 100 Seg Neutrophils % 44.0 Band Neutrophils % 39.0 H Lymphocytes % (Manual) 4.0 L Monocytes % (Manual) 4.0 Metamyelocytes % 8.0 H Myelocytes % 1.0 H Neutrophils # (Manual) 13617 H Toxic Vacuolation Present H Dohle Bodies 1+ H RBC Morphology Normal morphology D-Dimer ABG Sample Site Left radial ABG pH 7.35 ABG pCO2 32.8 L ABG pO2 63 L ABG HCO3 18 L ABG Total CO2 18 L ABG O2 Saturation 91 L ABG Base Excess -6.9 L Johnnie Test Positive Sodium 133 L Potassium 3.5 Chloride 109 H Carbon Dioxide 18 L BUN 23 H Creatinine 1.07 Estimated GFR > 60 BUN/Creatinine Ratio 21.5 Glucose 120 H Lactate 1.9 Calcium 7.7 L Magnesium Total Bilirubin 0.7 AST 41 ALT 24 Alkaline Phosphatase 83 D Ammonia Total Creatine Kinase Troponin I Total Protein 5.5 L Albumin 2.7 L Globulin 2.8 Albumin/Globulin Ratio 1.0 Lipase Procalcitonin Urine Color Urine Appearance Urine pH Ur Specific [place] Urine Protein Urine Glucose (UA) Urine Ketones Urine Occult Blood Urine Nitrate Urine Bilirubin Ur Bilirubin Confirm Urine Urobilinogen Ur Leukocyte Esterase Urine RBC Urine WBC Ur Squamous Epith Cells Urine Bacteria Urine Mucus Ur Culture Indicated? Vol Urine Centrifuged Nasal Screen MRSA (PCR) U Opiates 300ng/mL cut Ur Oxycodone Screen Urine Methadone Screen Ur Barbiturates Screen U Tricyclic Antidepress Ur Phencyclidine Scrn Ur Amphetamines Screen U Methamphetamines Scrn Ur MDMA Scrn (Ecstasy) U Benzodiazepines Scrn Urine Cocaine Screen U Marijuana (THC) Screen Urine Specific [place] Ur Creatinine A.calcoaceticus-baumannii cmplx PCR Chlamy pneumoniae PCR Adenovirus (PCR) Bacteroides fragilis B. pertussis DNA (PCR) B.parapertussis DNA PCR Kimberly albicans (PCR) Kimberly auris (PCR) C. glabrata (PCR) C. krusei (PCR) C. parapsilosis (PCR) C. tropicalis (PCR) Coronavirus OC43 (PCR) Coronavirus HKU1 (PCR) Coronavirus 229E (PCR) SARS-CoV-2 (PCR) Coronavirus NL63 (PCR) C. neoform/gattii (PCR) Enterobacterales (PCR) E. cloacae complex PCR Enterococc faecalis PCR Enterococc faecium PCR E. coli (PCR) H. influenzae (PCR) Human Metapneumovir PCR Influenza Type A (PCR) Influenza Type B (PCR) Klebsiella aerogenes (PCR) Klebsiella oxytoca PCR Klebsiella pneumoniae List. monocytogenes PCR M. pneumoniae (PCR) N. meningitidis (PCR) Parainfluenza 1 (PCR) Parainfluenza 2 (PCR) Parainfluenza 3 (PCR) Parainfluenza 4 (PCR) Proteus species (PCR) RSV (PCR) Entero/Rhino (PCR) Salmonella spp. (PCR) Serratia marcescens PCR Staphylococcus sp PCR Staph aureus (PCR) mecA/C & MREJ Resist Gene mecA/C-Methicil Resis Gene mcr-1 Colistin Res Gene PCR Staph epidermidis (PCR) Staph lugdunensis PCR S. maltophilia (PCR) Streptococcus sp PCR Group A Strep (PCR) Strep agalactiae (PCR) Strep pneumoniae (PCR) P. aeruginosa (PCR) Neil/B-Vanco Res Genes blaIMP Car res Gene PCR KPC-Carbap Res Gene PCR blaNDM Car Res Gene PCR OXA-48 Carbapenem Resis Gene (PCR) blaVIM Car Res Gene PCR CTX-M Gene Resistance (PCR) PFSH Medical History Breast mass, right Gynecomastia Depression, major Rising PSA level BPH w urinary obs/LUTS History of colonic polyps Right cervical radiculopathy Psoriatic arthritis Mixed hyperlipidemia Essential hypertension Attention deficit disorder predominant inattentive type Chronic, continuous use of opioids Primary osteoarthritis involving multiple joints Back pain, chronic Macular pucker, left eye Cataracts, bilateral Post-nasal drip Spondylolisthesis, lumbar region Spinal stenosis, lumbar region without neurogenic claudication Postlaminectomy syndrome, not elsewhere classified History of Mohs micrographic surgery for skin cancer (2019) Psoriasis Postlaminectomy syndrome Spinal stenosis Arthritis Acid reflux Hx of Prinzmetal angina (~1999) Hearing impaired Sciatica Osteoarthritis Hyperlipidemia Surgical History Anesthesia History of eye surgery S/P excision of lipoma (05/2016) Hx of parotidectomy (1961) History of back surgery (~2002) Hx of laminectomy (~2008) Hx of tonsillectomy History of surgery (10/2019) History of phacoemulsification of cataract of left eye with intraocular lens implantation Family History Father Cancer Mother Cancer Grandfather Cancer Grandmother Cancer Social History marital status: household members: spouse lives independently: Yes occupational status: previously employed Smoking Status: Former smoker alcohol intake: current substance use type: does not use Assessment & Plan Assessment & Plan narrative: 1. COVID positive at home with a negative PCR here, notpresent on admission and active. 2. Bacterial pneumonia, present on admission and active. 3. Significant fever, present on admission and improved. 4. Septic shock tachycardia, with fever, leukocytosis, and a mild lactic acidosis of 2.2. 5. Possible alcohol use disorder and withdrawal, present on admission and active. 6. Acute septic encephalopathy, present on admission and active. 7. Clinical evidence of volume depletion, present on admission and active. 8. Possible opiate dependence, present on admission and active. 9. right arm extravasation injury secondary to norepinephrine, new and active. 10. pulmonary edema, new and active. Plan: -broad-spectrum IV antibiotic for possible bacterial superinfection (Cefepime and Vanco). -dexamethasone for possible COVID pneumonia. Covid negative, stop today. -IV fluid resuscitation performed, Stopping IV fluid. -One dose of Lasix for pulmonary edema and to get urine output Improving. -trend troponins. -monitor mental status. -CIWA protocol. -Duragesic patch (possible opiod dependence). -Precedex drip as needed for agitation, wean as able. -monitor fever -monitor positive blood cultures. Met with and son. The patient was a guarded prognosis. Did update them on his status and current issues. ICU level of care, anticipate at least 2 midnight length of stay, inpatient status. Full resuscitation, is proxy. 40 minutes of critical care time spent, prognosis is guarded. Time-Based Coding :: [TOTAL MINUTES] spent with patient and on the chart (including review of chart, obtaining history, exam, reviewing outside data, placing orders, documenting exam and treatment plan, and counseling patient) on [DATE].
[2024-02-15] MEDS: ALBUTEROL 2.5 MG/3 ML NEB (ADULT) INH ×2 (08:35→13:35)
[2024-02-15] MEDS: fentaNYL 25 MCG/PATCH TOP (08:51)
[2024-02-15] MEDS: ENOXAPARIN 40 MG/0.4 ML SYRINGE SUBCUT (09:31)
[2024-02-15] MEDS: DEXAMETHASONE 10 MG/ML VIAL 6 MG IV (09:32)
[2024-02-15] MEDS: PHENobarbital 130 MG/ML VIAL 260 MG IV (10:01)
--- NOTE | 2024-02-15 10:06 | P.TELICUPN_ITS ---
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 Levo at 0.15 mcg/kg/min. Levo extravasation prior to having a central line. Current Medications Current Medications Medications: Home Medications amlodipine 5 mg tablet 5 mg PO BID 02/14/24 [History Confirmed 02/14/24] atorvastatin 40 mg tablet 40 mg PO DAILY 02/14/24 [History Confirmed 02/14/24] betamethasone dipropionate 0.05 % topical cream 1 applic topical DAILY 02/14/24 [History Confirmed 02/14/24] dextroamphetamine sulfate 10 mg tablet 10 mg PO BID 02/14/24 [History Confirmed 02/14/24] hydrocodone 5 mg-acetaminophen 325 mg tablet 1 tab PO BID PRN Pain (Scale Score 4-6) 02/14/24 [History Confirmed 02/14/24] lorazepam 0.5 mg tablet 0.5 mg PO PRN PRN Anxiety 02/14/24 [History Confirmed 02/14/24] losartan 50 mg tablet 50 mg PO DAILY 02/14/24 [History Confirmed 02/14/24] meloxicam 15 mg tablet 15 mg PO DAILY 02/14/24 [History Confirmed 02/14/24] sertraline 50 mg tablet 50 mg PO DAILY 02/14/24 [History Confirmed 02/14/24] Visit Medications (administered) Generic Name Dose Route Start Last Admin Trade Name Freq PRN Reason Stop Dose Admin Albuterol 2.5 mg 02/15/24 08:27 02/15/24 08:35 Albuterol 2.5 Mg/3 Ml Neb (Adult) INH 2.5 mg [id number] PRN Administration Shortness Of Breath Dexamethasone 6 mg 02/14/24 18:40 02/15/24 09:32 Dexamethasone 10 Mg/Ml Vial IV 6 mg DAILY SAMUEL Administration Enoxaparin Sodium 40 mg 02/15/24 09:00 02/15/24 09:31 Enoxaparin 40 Mg/0.4 Ml Syringe SUBCUT 40 mg DAILY SAMUEL Administration Famotidine 20 mg 02/14/24 21:00 02/14/24 20:08 Famotidine 20 Mg/2 Ml Vial IV 20 mg BID SAMUEL Administration Fentanyl 25 mcg 02/15/24 07:45 02/15/24 08:51 Fentanyl 25 Mcg/Patch TOP 25 mcg Q72H SAMUEL Administration Haloperidol 5 mg 02/14/24 18:37 02/15/24 08:51 Haloperidol 5 Mg/Ml Vial IV 5 mg Q1HR PRN Administration Hallucinations Hydromorphone HCl 0.5 mg 02/14/24 18:34 02/15/24 06:57 Hydromorphone 0.5 Mg Inj IV 0.5 mg Q2H PRN Administration Pain, Severe (7-10) dexmedeTOMIDine in 0.9 % NaCL 400 mcg in 100 mls @ 3.856 mls/hr 02/14/24 17:00 02/15/24 06:43 Precedex IV 1.5 mcg/kg/hr TITRATE SAMUEL 28.917 mls/hr Administration Protocol 0.2 MCG/KG/HR Sodium Chloride 1,000 mls @ 100 mls/hr 02/14/24 18:45 02/15/24 03:28 Normal Saline 0.9% IV 100 mls/hr CONT SAMUEL Administration Cefepime HCl 2 gm/ Sodium 100 mls @ 200 mls/hr 02/14/24 18:45 02/15/24 09:27 Chloride IV Infused Q12H SAMUEL Infusion Vancomycin HCl/Dextrose 1,500 mg in 300 mls @ 200 mls/hr 02/14/24 20:00 02/14/24 21:38 Vancomycin IV Infused Q24H SAMUEL Infusion NOREPINEPHRINE BITARTRATE/D5W 4 mg in 250 mls @ 28.917 mls/hr 02/14/24 19:30 02/15/24 06:54 Levophed IV 0.15 mcg/kg/min TITRATE SAMUEL 43.375 mls/hr Administration Protocol 0.1 MCG/KG/MIN Lorazepam 0 mg 02/14/24 18:37 02/14/24 20:07 Lorazepam 2 Mg/Ml Inj IV 2 mg CIWAPRN PRN Administration Alcohol Withdrawal Protocol Objective Labs 02/15/24 05:14 02/15/24 05:14 Labs: Laboratory Results - last 24 hr 02/14/24 02/14/24 02/14/24 15:30 15:47 16:25 WBC 6.0 RBC 5.33 Hgb 15.0 Hct 44.2 MCV 82.9 MCH 28.2 MCHC 34.0 RDW 13.2 Plt Count 212 Neut % (Auto) 93.1 H Lymph % (Auto) 5.1 L [place] % (Auto) 1.3 L Eos % (Auto) 0.2 L Baso % (Auto) 0.3 Neut # (Auto) 5600 Lymph # (Auto) 300 L [place] # (Auto) 100 Eos # (Auto) 0 Baso # (Auto) 0 Total Counted Seg Neutrophils % Band Neutrophils % Lymphocytes % (Manual) Monocytes % (Manual) Metamyelocytes % Myelocytes % Neutrophils # (Manual) Toxic Vacuolation Dohle Bodies RBC Morphology D-Dimer ABG Sample Site ABG pH ABG pCO2 ABG pO2 ABG HCO3 ABG Total CO2 ABG O2 Saturation ABG Base Excess Johnnie Test Sodium 136 L Potassium 3.8 Chloride 104 Carbon Dioxide 18 L BUN 21 H Creatinine 1.11 Estimated GFR > 60 BUN/Creatinine Ratio 18.9 Glucose 114 H Lactate 2.2 H Calcium 9.7 Magnesium 1.4 L Total Bilirubin 1.3 AST 34 ALT 25 Alkaline Phosphatase 153 H Ammonia Total Creatine Kinase 137 Troponin I < 0.012 Total Protein 7.2 Albumin 4.4 Globulin 2.8 Albumin/Globulin Ratio 1.6 Lipase 63 Procalcitonin 2.27 H Urine Color Urine Appearance Urine pH Ur Specific [place] Urine Protein Urine Glucose (UA) Urine Ketones Urine Occult Blood Urine Nitrate Urine Bilirubin Ur Bilirubin Confirm Urine Urobilinogen Ur Leukocyte Esterase Urine RBC Urine WBC Ur Squamous Epith Cells Urine Bacteria Urine Mucus Ur Culture Indicated? Vol Urine Centrifuged Nasal Screen MRSA (PCR) U Opiates 300ng/mL cut Ur Oxycodone Screen Urine Methadone Screen Ur Barbiturates Screen U Tricyclic Antidepress Ur Phencyclidine Scrn Ur Amphetamines Screen U Methamphetamines Scrn Ur MDMA Scrn (Ecstasy) U Benzodiazepines Scrn Urine Cocaine Screen U Marijuana (THC) Screen Urine Specific [place] Ur Creatinine A.calcoaceticus-baumannii cmplx PCR Not detected Chlamy pneumoniae PCR Adenovirus (PCR) Bacteroides fragilis Not detected B. pertussis DNA (PCR) B.parapertussis DNA PCR Kimberly albicans (PCR) Not detected Kimberly auris (PCR) Not detected C. glabrata (PCR) Not detected C. krusei (PCR) Not detected C. parapsilosis (PCR) Not detected C. tropicalis (PCR) Not detected Coronavirus OC43 (PCR) Coronavirus HKU1 (PCR) Coronavirus 229E (PCR) SARS-CoV-2 (PCR) Coronavirus NL63 (PCR) C. neoform/gattii (PCR) Not detected Enterobacterales (PCR) Not detected E. cloacae complex PCR Not detected Enterococc faecalis PCR Not detected Enterococc faecium PCR Not detected E. coli (PCR) Not detected H. influenzae (PCR) Not detected Human Metapneumovir PCR Influenza Type A (PCR) Influenza Type B (PCR) Klebsiella aerogenes (PCR) Not detected Klebsiella oxytoca PCR Not detected Klebsiella pneumoniae Not detected List. monocytogenes PCR Not detected M. pneumoniae (PCR) N. meningitidis (PCR) Not detected Parainfluenza 1 (PCR) Parainfluenza 2 (PCR) Parainfluenza 3 (PCR) Parainfluenza 4 (PCR) Proteus species (PCR) Not detected RSV (PCR) Entero/Rhino (PCR) Salmonella spp. (PCR) Not detected Serratia marcescens PCR Not detected Staphylococcus sp PCR Not detected Staph aureus (PCR) Not detected mecA/C & MREJ Resist Gene Not applicable mecA/C-Methicil Resis Gene Not applicable mcr-1 Colistin Res Gene PCR Not applicable Staph epidermidis (PCR) Not detected Staph lugdunensis PCR Not detected S. maltophilia (PCR) Not detected Streptococcus sp PCR Detected Group A Strep (PCR) Detected Strep agalactiae (PCR) Not detected Strep pneumoniae (PCR) Not detected P. aeruginosa (PCR) Not detected Neil/B-Vanco Res Genes Not applicable blaIMP Car res Gene PCR Not applicable KPC-Carbap Res Gene PCR Not applicable blaNDM Car Res Gene PCR Not applicable OXA-48 Carbapenem Resis Gene (PCR) Not applicable blaVIM Car Res Gene PCR Not applicable CTX-M Gene Resistance (PCR) Not applicable 02/14/24 02/14/24 02/14/24 16:43 16:43 16:45 WBC RBC Hgb Hct MCV MCH MCHC RDW Plt Count Neut % (Auto) Lymph % (Auto) [place] % (Auto) Eos % (Auto) Baso % (Auto) Neut # (Auto) Lymph # (Auto) [place] # (Auto) Eos # (Auto) Baso # (Auto) Total Counted Seg Neutrophils % Band Neutrophils % Lymphocytes % (Manual) Monocytes % (Manual) Metamyelocytes % Myelocytes % Neutrophils # (Manual) Toxic Vacuolation Dohle Bodies RBC Morphology D-Dimer ABG Sample Site ABG pH ABG pCO2 ABG pO2 ABG HCO3 ABG Total CO2 ABG O2 Saturation ABG Base Excess Johnnie Test Sodium Potassium Chloride Carbon Dioxide BUN Creatinine Estimated GFR BUN/Creatinine Ratio Glucose Lactate Calcium Magnesium Total Bilirubin AST ALT Alkaline Phosphatase Ammonia < 9 L Total Creatine Kinase Troponin I Total Protein Albumin Globulin Albumin/Globulin Ratio Lipase Procalcitonin Urine Color Dark yellow Urine Appearance Clear Urine pH 5.0 Normal Ur Specific [place] 1.025 Urine Protein Trace H Urine Glucose (UA) Negative Urine Ketones 1+ H Urine Occult Blood Negative Urine Nitrate Negative Urine Bilirubin 1+ H Ur Bilirubin Confirm Positive H Urine Urobilinogen 1.0 Ur Leukocyte Esterase Negative Urine RBC 0-1/hpf Urine WBC 1-5/hpf Ur Squamous Epith Cells 5-10 /hpf H Urine Bacteria Moderate (10-30) H Urine Mucus 3+ H Ur Culture Indicated? Cult not indicated Vol Urine Centrifuged 10ml (spun) Nasal Screen MRSA (PCR) U Opiates 300ng/mL cut Positive H Ur Oxycodone Screen Negative Urine Methadone Screen Negative Ur Barbiturates Screen Negative U Tricyclic Antidepress Positive H Ur Phencyclidine Scrn Negative Ur Amphetamines Screen Positive H U Methamphetamines Scrn Negative Ur MDMA Scrn (Ecstasy) Negative U Benzodiazepines Scrn Positive H Urine Cocaine Screen Negative U Marijuana (THC) Screen Positive H Urine Specific [place] Normal Ur Creatinine Normal A.calcoaceticus-baumannii cmplx PCR Chlamy pneumoniae PCR Adenovirus (PCR) Bacteroides fragilis B. pertussis DNA (PCR) B.parapertussis DNA PCR Kimberly albicans (PCR) Kimberly auris (PCR) C. glabrata (PCR) C. krusei (PCR) C. parapsilosis (PCR) C. tropicalis (PCR) Coronavirus OC43 (PCR) Coronavirus HKU1 (PCR) Coronavirus 229E (PCR) SARS-CoV-2 (PCR) Coronavirus NL63 (PCR) C. neoform/gattii (PCR) Enterobacterales (PCR) E. cloacae complex PCR Enterococc faecalis PCR Enterococc faecium PCR E. coli (PCR) H. influenzae (PCR) Human Metapneumovir PCR Influenza Type A (PCR) Influenza Type B (PCR) Klebsiella aerogenes (PCR) Klebsiella oxytoca PCR Klebsiella pneumoniae List. monocytogenes PCR M. pneumoniae (PCR) N. meningitidis (PCR) Parainfluenza 1 (PCR) Parainfluenza 2 (PCR) Parainfluenza 3 (PCR) Parainfluenza 4 (PCR) Proteus species (PCR) RSV (PCR) Entero/Rhino (PCR) Salmonella spp. (PCR) Serratia marcescens PCR Staphylococcus sp PCR Staph aureus (PCR) mecA/C & MREJ Resist Gene mecA/C-Methicil Resis Gene mcr-1 Colistin Res Gene PCR Staph epidermidis (PCR) Staph lugdunensis PCR S. maltophilia (PCR) Streptococcus sp PCR Group A Strep (PCR) Strep agalactiae (PCR) Strep pneumoniae (PCR) P. aeruginosa (PCR) Neil/B-Vanco Res Genes blaIMP Car res Gene PCR KPC-Carbap Res Gene PCR blaNDM Car Res Gene PCR OXA-48 Carbapenem Resis Gene (PCR) blaVIM Car Res Gene PCR CTX-M Gene Resistance (PCR) 02/14/24 02/14/24 02/14/24 16:55 18:20 18:30 WBC RBC Hgb Hct MCV MCH MCHC RDW Plt Count Neut % (Auto) Lymph % (Auto) [place] % (Auto) Eos % (Auto) Baso % (Auto) Neut # (Auto) Lymph # (Auto) [place] # (Auto) Eos # (Auto) Baso # (Auto) Total Counted Seg Neutrophils % Band Neutrophils % Lymphocytes % (Manual) Monocytes % (Manual) Metamyelocytes % Myelocytes % Neutrophils # (Manual) Toxic Vacuolation Dohle Bodies RBC Morphology D-Dimer 4043 H ABG Sample Site ABG pH ABG pCO2 ABG pO2 ABG HCO3 ABG Total CO2 ABG O2 Saturation ABG Base Excess Johnnie Test Sodium Potassium Chloride Carbon Dioxide BUN Creatinine Estimated GFR BUN/Creatinine Ratio Glucose Lactate 2.7 H Calcium Magnesium Total Bilirubin AST ALT Alkaline Phosphatase Ammonia Total Creatine Kinase Troponin I 0.015 Total Protein Albumin Globulin Albumin/Globulin Ratio Lipase Procalcitonin Urine Color Urine Appearance Urine pH Ur Specific [place] Urine Protein Urine Glucose (UA) Urine Ketones Urine Occult Blood Urine Nitrate Urine Bilirubin Ur Bilirubin Confirm Urine Urobilinogen Ur Leukocyte Esterase Urine RBC Urine WBC Ur Squamous Epith Cells Urine Bacteria Urine Mucus Ur Culture Indicated? Vol Urine Centrifuged Nasal Screen MRSA (PCR) Not detected U Opiates 300ng/mL cut Ur Oxycodone Screen Urine Methadone Screen Ur Barbiturates Screen U Tricyclic Antidepress Ur Phencyclidine Scrn Ur Amphetamines Screen U Methamphetamines Scrn Ur MDMA Scrn (Ecstasy) U Benzodiazepines Scrn Urine Cocaine Screen U Marijuana (THC) Screen Urine Specific [place] Ur Creatinine A.calcoaceticus-baumannii cmplx PCR Chlamy pneumoniae PCR Not detected Adenovirus (PCR) Not detected Bacteroides fragilis B. pertussis DNA (PCR) Not detected B.parapertussis DNA PCR Not detected Kimberly albicans (PCR) Kimberly auris (PCR) C. glabrata (PCR) C. krusei (PCR) C. parapsilosis (PCR) C. tropicalis (PCR) Coronavirus OC43 (PCR) Not detected Coronavirus HKU1 (PCR) Not detected Coronavirus 229E (PCR) Not detected SARS-CoV-2 (PCR) Not detected Coronavirus NL63 (PCR) Not detected C. neoform/gattii (PCR) Enterobacterales (PCR) E. cloacae complex PCR Enterococc faecalis PCR Enterococc faecium PCR E. coli (PCR) H. influenzae (PCR) Human Metapneumovir PCR Not detected Influenza Type A (PCR) Not detected Influenza Type B (PCR) Not detected Klebsiella aerogenes (PCR) Klebsiella oxytoca PCR Klebsiella pneumoniae List. monocytogenes PCR M. pneumoniae (PCR) Not detected N. meningitidis (PCR) Parainfluenza 1 (PCR) Not detected Parainfluenza 2 (PCR) Not detected Parainfluenza 3 (PCR) Not detected Parainfluenza 4 (PCR) Not detected Proteus species (PCR) RSV (PCR) Not detected Entero/Rhino (PCR) Not detected Salmonella spp. (PCR) Serratia marcescens PCR Staphylococcus sp PCR Staph aureus (PCR) mecA/C & MREJ Resist Gene mecA/C-Methicil Resis Gene mcr-1 Colistin Res Gene PCR Staph epidermidis (PCR) Staph lugdunensis PCR S. maltophilia (PCR) Streptococcus sp PCR Group A Strep (PCR) Strep agalactiae (PCR) Strep pneumoniae (PCR) P. aeruginosa (PCR) Neil/B-Vanco Res Genes blaIMP Car res Gene PCR KPC-Carbap Res Gene PCR blaNDM Car Res Gene PCR OXA-48 Carbapenem Resis Gene (PCR) blaVIM Car Res Gene PCR CTX-M Gene Resistance (PCR) 02/14/24 02/14/24 02/15/24 22:16 22:28 05:14 WBC 22.0 H D RBC 4.62 Hgb 13.0 L Hct 39.0 L MCV 84.6 MCH 28.2 MCHC 33.4 RDW 13.2 Plt Count 219 Neut % (Auto) Not Reportable Lymph % (Auto) Not Reportable [place] % (Auto) Not Reportable Eos % (Auto) Not Reportable Baso % (Auto) Not Reportable Neut # (Auto) Lymph # (Auto) Not Reportable [place] # (Auto) Not Reportable Eos # (Auto) Baso # (Auto) Not Reportable Total Counted 100 Seg Neutrophils % 44.0 Band Neutrophils % 39.0 H Lymphocytes % (Manual) 4.0 L Monocytes % (Manual) 4.0 Metamyelocytes % 8.0 H Myelocytes % 1.0 H Neutrophils # (Manual) 33461 H Toxic Vacuolation Present H Dohle Bodies 1+ H RBC Morphology Normal morphology D-Dimer ABG Sample Site Left radial ABG pH 7.35 ABG pCO2 32.8 L ABG pO2 63 L ABG HCO3 18 L ABG Total CO2 18 L ABG O2 Saturation 91 L ABG Base Excess -6.9 L Johnnie Test Positive Sodium 133 L Potassium 3.5 Chloride 109 H Carbon Dioxide 18 L BUN 23 H Creatinine 1.07 Estimated GFR > 60 BUN/Creatinine Ratio 21.5 Glucose 120 H Lactate 1.9 Calcium 7.7 L Magnesium Total Bilirubin 0.7 AST 41 ALT 24 Alkaline Phosphatase 83 D Ammonia Total Creatine Kinase Troponin I Total Protein 5.5 L Albumin 2.7 L Globulin 2.8 Albumin/Globulin Ratio 1.0 Lipase Procalcitonin Urine Color Urine Appearance Urine pH Ur Specific [place] Urine Protein Urine Glucose (UA) Urine Ketones Urine Occult Blood Urine Nitrate Urine Bilirubin Ur Bilirubin Confirm Urine Urobilinogen Ur Leukocyte Esterase Urine RBC Urine WBC Ur Squamous Epith Cells Urine Bacteria Urine Mucus Ur Culture Indicated? Vol Urine Centrifuged Nasal Screen MRSA (PCR) U Opiates 300ng/mL cut Ur Oxycodone Screen Urine Methadone Screen Ur Barbiturates Screen U Tricyclic Antidepress Ur Phencyclidine Scrn Ur Amphetamines Screen U Methamphetamines Scrn Ur MDMA Scrn (Ecstasy) U Benzodiazepines Scrn Urine Cocaine Screen U Marijuana (THC) Screen Urine Specific [place] Ur Creatinine A.calcoaceticus-baumannii cmplx PCR Chlamy pneumoniae PCR Adenovirus (PCR) Bacteroides fragilis B. pertussis DNA (PCR) B.parapertussis DNA PCR Kimberly albicans (PCR) Kimberly auris (PCR) C. glabrata (PCR) C. krusei (PCR) C. parapsilosis (PCR) C. tropicalis (PCR) Coronavirus OC43 (PCR) Coronavirus HKU1 (PCR) Coronavirus 229E (PCR) SARS-CoV-2 (PCR) Coronavirus NL63 (PCR) C. neoform/gattii (PCR) Enterobacterales (PCR) E. cloacae complex PCR Enterococc faecalis PCR Enterococc faecium PCR E. coli (PCR) H. influenzae (PCR) Human Metapneumovir PCR Influenza Type A (PCR) Influenza Type B (PCR) Klebsiella aerogenes (PCR) Klebsiella oxytoca PCR Klebsiella pneumoniae List. monocytogenes PCR M. pneumoniae (PCR) N. meningitidis (PCR) Parainfluenza 1 (PCR) Parainfluenza 2 (PCR) Parainfluenza 3 (PCR) Parainfluenza 4 (PCR) Proteus species (PCR) RSV (PCR) Entero/Rhino (PCR) Salmonella spp. (PCR) Serratia marcescens PCR Staphylococcus sp PCR Staph aureus (PCR) mecA/C & MREJ Resist Gene mecA/C-Methicil Resis Gene mcr-1 Colistin Res Gene PCR Staph epidermidis (PCR) Staph lugdunensis PCR S. maltophilia (PCR) Streptococcus sp PCR Group A Strep (PCR) Strep agalactiae (PCR) Strep pneumoniae (PCR) P. aeruginosa (PCR) Neil/B-Vanco Res Genes blaIMP Car res Gene PCR KPC-Carbap Res Gene PCR blaNDM Car Res Gene PCR OXA-48 Carbapenem Resis Gene (PCR) blaVIM Car Res Gene PCR CTX-M Gene Resistance (PCR) Exam Vital Signs (past 8 hours): - 02/15/24 02:15 02/15/24 02:15 02/15/24 02:30 Temperature 98.8 F Pulse Rate 109 H Respiratory Rate 25 H Blood Pressure 104/62 106/64 Pulse Oximetry 92 Oxygen Delivery Method Oxygen Flow Rate 3 02/15/24 02:30 02/15/24 02:45 02/15/24 02:45 Temperature 98.8 F 98.8 F Pulse Rate 109 H 109 H Respiratory Rate 27 H 27 H Blood Pressure 103/62 Pulse Oximetry 92 93 Oxygen Delivery Method Oxygen Flow Rate 02/15/24 03:00 02/15/24 03:00 02/15/24 03:15 Temperature 98.8 F Pulse Rate 109 H Respiratory Rate 26 H Blood Pressure 101/63 111/63 Pulse Oximetry 92 Oxygen Delivery Method Oxygen Flow Rate 02/15/24 03:15 02/15/24 03:15 02/15/24 03:30 Temperature 98.8 F 98.8 F 98.8 F Pulse Rate 109 H 109 H 109 H Respiratory Rate 26 H 26 H 27 H Blood Pressure Pulse Oximetry 92 92 92 Oxygen Delivery Method Oxygen Flow Rate 3 02/15/24 03:30 02/15/24 03:45 02/15/24 03:45 Temperature 98.8 F Pulse Rate 109 H Respiratory Rate 26 H Blood Pressure 105/61 104/63 Pulse Oximetry 92 Oxygen Delivery Method Oxygen Flow Rate 02/15/24 04:00 02/15/24 04:00 02/15/24 04:15 Temperature 99.0 F Pulse Rate 109 H Respiratory Rate 27 H Blood Pressure 96/58 L 98/63 Pulse Oximetry 92 Oxygen Delivery Method Oxygen Flow Rate 02/15/24 04:15 02/15/24 04:30 02/15/24 04:30 Temperature 99.0 F 99.0 F Pulse Rate 108 H 109 H Respiratory Rate 26 H 27 H Blood Pressure 102/64 Pulse Oximetry 92 92 Oxygen Delivery Method Oxygen Flow Rate 3 02/15/24 04:45 02/15/24 04:45 02/15/24 05:00 Temperature 99.0 F Pulse Rate 108 H Respiratory Rate 26 H Blood Pressure 108/64 110/63 Pulse Oximetry 91 Oxygen Delivery Method Oxygen Flow Rate 02/15/24 05:00 02/15/24 05:15 02/15/24 05:15 Temperature 99.0 F 99.1 F Pulse Rate 107 H 107 H Respiratory Rate 26 H 27 H Blood Pressure 110/67 Pulse Oximetry 92 93 Oxygen Delivery Method Oxygen Flow Rate 3 02/15/24 05:30 02/15/24 05:30 02/15/24 05:45 Temperature 99.1 F Pulse Rate 106 H Respiratory Rate 27 H Blood Pressure 101/63 102/62 Pulse Oximetry 93 Oxygen Delivery Method Oxygen Flow Rate 02/15/24 05:45 02/15/24 06:00 02/15/24 06:00 Temperature 99.1 F 99.1 F Pulse Rate 104 H 104 H Respiratory Rate 27 H 27 H Blood Pressure 111/67 Pulse Oximetry 94 95 Oxygen Delivery Method Oxygen Flow Rate 3 02/15/24 07:55 02/15/24 08:35 Temperature Pulse Rate 108 H Respiratory Rate 36 H Blood Pressure Pulse Oximetry 95 97 Oxygen Delivery Method Oximask Oximask Oxygen Flow Rate 4 6 Oxygen Delivery Method Oximask Oxygen Flow Rate 6 Assessment & Plan Assessment & Plan narrative: acute hypoxic respiratory failure 2/2 COVID PNA/ concern for worsening 2ndary bacterial multifocal PNA Sever covid PNA etoh withdrawal Acute metabolic encephalopathy 2/2 the above Septic shock Hyponatremia H/o of chronic use of BZD, Adderal, opioid and smles Marijuana Rec: - Continue Precedex , ciwa score with ativan, haldol prn, adding a dose of phenobarb 260 mg IV and will use prn, may need mechanical ventialtion to control agitation and withdrwal - Check CXR daily and ABG as needed - Hold maintanace fluid , IV albumin 25 % 25 gm q4 hr x 3 doses - Wean off levo for MAP goal >60 - 2 D ecfo -Neurochecks/seizure precautions -start phentolamine for UE [place] extravasation - IV thiamine/folate -keep NPO -continue Dex & broad spec ABX/cultures -monitor ins/outs -replace lytes prn -keep glucose 140-180s -diet as tolerated -gi/dvt ppx -please call eICU prn CCT 30 MIN Time-Based Coding :: [TOTAL MINUTES] spent with patient and on the chart (including review of chart, obtaining history, exam, reviewing outside data, placing orders, documenting exam and treatment plan, and counseling patient) on [DATE].
[2024-02-15] MEDS: THIAMINE IV (10:23)
[2024-02-15] MEDS: FOLIC ACID IV (10:23)
[2024-02-15] MEDS: SODIUM CHLORIDE 0.9% IV ×2 (10:23→17:38)
[2024-02-15] MEDS: MULTIVITAMIN IV (10:23)
[2024-02-15] MEDS: FAMOTIDINE 20 MG/2 ML VIAL IV ×2 (10:28→21:01)
--- NOTE | 2024-02-15 11:00 | DI.RAD.S_ITS ---
PROCEDURE: XR CHEST 1V INDICATIONS: pna TECHNIQUE: One view of the chest was acquired. COMPARISON: [facility], CR, XR CHEST 1V, 02/14/2024, 21:33. [facility], CR, XR CHEST 1V, 02/14/2024, 15:23. FINDINGS: Surgical changes and devices: A right central line terminates in the lower SVC. Lungs and pleura: Mild diffuse lung disease, low lung volumes. No drainable effusions Mediastinum: Cardiomegaly, unchanged. Bones and chest wall: Degenerative findings IMPRESSION: Mild diffuse lung disease, possibly edema or infection. This is similar to prior. Consider future imaging surveillance to assess for resolution. Cardiomegaly is unchanged. Right central line terminates in the lower SVC. Dictated by: David Peterson M.D. on 02/15/2024 at 12:51 Approved by: David Peterson M.D. on 02/15/2024 at 12:52
[2024-02-15] MEDS: POTASSIUM CHLORIDE IN WATER 10 MEQ/100 ML PIGGYBACK 100 MEQ IV ×2 (11:10→11:49)
[2024-02-15] MEDS: FUROSEMIDE 40 MG/4 ML VIAL IV (11:35)
[2024-02-15] MEDS: ALBUMIN HUMAN 25 GM/100 ML VIAL IV (13:59)
--- NOTE | 2024-02-15 14:18 | PC.NURSE ---
Addendum entered by Lulú Pack R.N. 02/15/24 19:36: Pt transported to CT and back to room without event. Report given to oncoming nurse Anisa CALVIN, no further pt contact at this time Addendum entered by Lulú Pack R.N. 02/15/24 18:19: Dressing change of right arm wound completed with new wound photos loaded into notes, pt tolerated procedure well. Critical lab value WBC 30.3 at 1730, Dr Bird and Charge nurse Ene notified, no new orders at this time. Pt family at bedside, no further needs at this time. Original Note: Day shift Note: Report received from NIKUNJ Jarvis, pt continues to remain on Precedex, Levophed, IVF, see emar for rates. Pt remains intermittently agitated and restless, attempting to pull at lines and monitoring equipment. Pt is not redirectable or able to be oriented to place and time. Pt occasionally is requiring Haldol IVP for agitation and IV Dilaudid for chronic back pain (also place Fentanyl patch for pain control). Dr Bird at bedside extravasation to right arm from wrist to mid biceps visualized, where blisters (from photo's) were are now open area's, redressed arm with ABD, crulex and tay wrap. Per Tele ICU Dr Matta, will redress arm at 1600 (take new photo's to show progression) and place 1inch strip of nitro paste on unbroken skin, then rewrap arm. This nurse notes that pt lung sounds are wet to upper airway, with wheezes and coarse in the bases. Pt stats 97% on 5L Oxy mask, BP is stable on Levo (see emar for dosage) 119/59, remains tachyardic HR 105-110.
[2024-02-15] MEDS: FUROSEMIDE 60 MG in SODIUM CHLORIDE 0.9% 50 ML 112 MG IV (15:17)
--- NOTE | 2024-02-15 15:44 | CM.DANOTE ---
Initial DCP Assessment Note Pt is a 73 yo male, resident of [place], presented to the hospital with fever and confusion, recent COVID+ illness, admitted for further work up and management of PNA, septic shock, ETOH w/d. PCP: Lito Powell Payer: TRANG/Chanda Reviewed chart, patient is not alert and oriented today. Met w/spouse Chantell and local son Lenny Cardenas [phone]. Son Ade lives in [place]. Patient lives independently with spouse, retired. Patient reportedly drinks 5-6 drinks of hard alcohol daily, which sp and son report have never interfered negatively with patient's professional or social life. According to family, neither patient nor family members classify patient as an alcoholic. Patient drinks alongside use of benzos and opiates to self medicate for anxiety and chronic pain. Patient has been drinking at the rate described for at least 20 years, family has not seen him go through withdrawals. Patient does not drink to get drunk and does not drink to the point of blacking out. Son anticipates once patient has recovered from this medical event, patient may consider decreasing alcohol use. CM team will plan to follow clinical course closely. Anticipate patient will return home w/supportive family to assist as needed. NILSA Galan Discharge Planning/Care Management Advanced directive, confirm from FAMILY Start: 02/14/24 20:54 Freq: Q24H Status: Active Protocol: Document 02/14/24 20:56 RL (Rec: 02/14/24 20:56 RL Desktop) Advance Directive, confirm on record Time 20:45 Person contacted Chantell Rosario received No CM Discharge Assessment Start: 02/15/24 15:42 Freq: Status: Active Protocol: Document 02/15/24 15:42 JW (Rec: 02/15/24 15:44 JW [id number]) Discharge Planning Assessment Assigned Geological Aide NILSA Busch DPOA/Assigned Designee Name Chantell Perkins, spouse Contact Information [phone] Advance Directives? Yes Advance Directives on File No History Provided By Family Member,Significant Other Prior Living Arrangements House Household Members spouse Type of transporation used prior to Drives own vehicle admit Independent with ADL's Yes Is patient alert and oriented? Yes Barriers to Discharge No Comment Depending on patient's medical and functional progress. Discharge Plan Home Transportation Arrangement TBD Referrals Initiated None needed Whiteboard Updated in Patient Room with Yes name and ext. # of Geological Aide
[2024-02-15] MEDS: NITROGLYCERIN OINT 1 INCH/GM OINT...G. TOP ×2 (16:10→23:45)
[2024-02-15] MEDS: HYDROMORPHONE 0.5 MG INJ 1 MG IV ×4 (16:38→23:46)
[2024-02-15] MEDS: DEXMEDETOMIDINE HCL IV (17:38)
[2024-02-15 18:01] LABS: Alanine Aminotransferase 25 IU/L (<50); Albumin 3.3 g/dL (3.5-5.0); Albumin Globulin Ratio 1.2 (1.0-2.8); Alkaline Phosphatase 82 U/L (38-126); Aspartate Aminotransferase 31 IU/L (17-59); BUN Creatinine Ratio 22.3 (6-22); Bilirubin Total 0.7 mg/dL (0.2-1.3); Blood Urea Nitrogen 29 mg/dL (9-20); Calcium 7.5 mg/dL (8.4-10.2); Carbon Dioxide 17 mmol/L (22-32); Chloride 109 mmol/L (98-107); Estimated Glomerular Filt Rate 57 mL/min (>60); Globulin 2.7 g/dL (1.7-4.1); Glucose 146 mg/dL (80-110); HEMOLYSIS < 15 (0-50); Magnesium 1.3 mg/dL (1.6-2.3); Potassium 4.9 mmol/L (3.4-5.1); Sodium 136 mmol/L (137-145)
[2024-02-15 18:02] LABS: Lactate (Lactic Acid) 2.3 mmol/L (0.7-2.1)
[2024-02-15 18:04] LABS: Hemoglobin 12.7 g/dL (13.5-17.5); Mean Corpuscular Hemoglobin 27.8 PG (26-34)
[2024-02-15 18:07] LABS: Hematocrit 38.5 % (41-53); Mean Corpuscular HGB Conc 32.9 % (30-36); Mean Corpuscular Volume 84.6 fL (80-100); Platelet Count 193 X10^3/uL (150-400); Red Blood Cell Count 4.55 X10^6/uL (4.5-5.9); Red Cell Distribution Width 13.6 % (11.6-14.8)
[2024-02-15 18:11] LABS: White Blood Cell Count 30.3 X10^3/uL (4.5-11.0)
[2024-02-15 18:13] LABS: Troponin I 0.035 ng/mL (0.01-0.034)
[2024-02-15 18:18] LABS: Procalcitonin 27.3 ng/mL (<0.5)
--- NOTE | 2024-02-15 18:31 | DI.CT.S_ITS ---
PROCEDURE: CT CHEST ABD PEL WO CON INDICATIONS: Severe sepsis , WBC [id number] TECHNIQUE: After the administration of oral contrast, 5 mm thick sections acquired from the lung apices to the symphysis pubis. 5 mm thick coronal and sagittal reformats acquired, with additional 7 mm coronal MIP reformats through the lungs. For radiation dose reduction, the following was used: automated exposure control, adjustment of mA and/or kV according to patient size. COMPARISON: None. FINDINGS: Image quality: Diagnostic. CHEST: Lower Neck: Enlarged left supraclavicular lymph no measures 1.4 cm in short axis diameter series 2, image 8. Thyroid: No thyroid nodules which require sonographic follow up, per consensus guidelines. Axillae: Subcentimeter lymph nodes seen in bilateral axilla measures up to 8 millimeter in size in left axilla series 2, image 32. Chest Wall: Unremarkable. Lungs and Pleura: Small bilateral pleural effusion with dependent atelectasis versus small infiltrates in posterior aspect of bilateral lower lobes extending to bilateral infrahilar region. There is mild pulmonary edema with hazy ground-glass opacities scattered in bilateral lung dunne. No pneumothorax. Central and peripheral airway is patent. Heart: Heart size is enlarged. No pericardial effusion. Thoracic Vessels: Ascending thoracic aortic aneurysm measures up to 4.3 cm in short axis diameter is seen series 2, image 46. Pulmonary artery is also prominent in size and measures 3.5 cm in diameter which can be seen associated with pulmonary vascular hypertension. Moderate atherosclerotic calcifications are seen in coronary arteries and thoracic aorta. Mediastinum and Jazmine: Subcentimeter lymph nodes are seen in mediastinum measures up to 8 millimeters in size in right paratracheal space. Esophagus: No wall thickening. No hiatal hernia. ABDOMEN: Liver: No solid mass. Gallbladder: No radiopaque gallstones or wall thickening. Biliary ducts: No biliary dilation. Pancreas: No ductal dilation. Spleen: Size is within normal limits. Adrenal Glands: No adrenal nodules. Kidneys and Ureters: No hydronephrosis. No solid mass. No complex renal cystic lesion which requires follow up. Stomach and Bowel: Normal colonic caliber, without significant wall thickening. Appendix is visualized and is within normal limits. Sigmoid diverticulosis without CT evidence of acute diverticulitis. Peritoneum: No abnormal intraperitoneal fluid. No free air. Ventral Wall: No hernia. Abdominal Nodes: No retroperitoneal or mesenteric adenopathy by size criteria. Subcentimeter lymph nodes are seen in left periaortic space measures up to 9 millimeter in short axis diameter. Vessels: Aorta and inferior vena cava are normal in size. PELVIS: Pelvic Organs: Enlarged prostate gland with mass effect on floor of urinary bladder is seen.. Bladder: Roland catheter is seen in a decompressed urinary bladder. Questionable diffuse bladder wall thickening. Low-grade cystitis cannot be excluded. Pelvic Nodes: No enlarged lymph nodes. Miscellaneous: Bilateral inguinal hernia are seen containing fat only. Bones: No aggressive osseous abnormality. Postfusion changes are noted in lower lumbar spine. Degenerative disc disease throughout thoracic and lumbar spine is seen. No acute vertebral body compression fracture. IMPRESSION: 1. Small bilateral pleural effusion with suggestion of infiltrate versus dependent atelectasis in posterior aspect of bilateral lower lobes extending to bilateral infrahilar region. 2. Suggestion of mild pulmonary edema. No pneumothorax. Airway is patent. 3. Prominent size of main pulmonary artery which can be seen associated with pulmonary vascular hypertension. Mild ascending thoracic aortic aneurysm measures up to 4.3 cm in largest AP diameter. No abdominal aortic aneurysm. 4. Nonspecific enlarged left supraclavicular lymph node which may be reactive in nature. Subcentimeter lymph nodes are seen in bilateral axilla, mediastinum and retroperitoneal space as above. 5. No bowel obstruction or abnormal bowel wall thickening. No free fluid or free air. Sigmoid diverticulosis without evidence of acute diverticulitis. No abscess collection. 6. Roland catheter in decompressed urinary bladder. Questionable bladder wall thickening, low-grade cystitis cannot be excluded. Enlarged prostate gland with mass effect on floor of urinary bladder. Dictated by: Juan Venegas M.D. on 02/15/2024 at 20:14 Approved by: Juan Venegas M.D. on 02/15/2024 at 20:21
--- NOTE | 2024-02-15 18:31 | PM.EVENT ---
Event Note Date Patient Seen: 02/15/24 Time Patient Seen: 18:31 Event Note (Rapid Response, Code, or fall): The patient has stabilized today on a stable relatively low dose of pressors and has done well with diuresis. his breathing has remained stable on 5-7 L of oxygen. A repeat labs [place] [address]. At this point we will do a CT scan of his chest, abdomen, and pelvis given his severe leukocytosis to rule out evidence of acute source of infection other than presumed pneumonia. Blood cultures remain 1/2 positive for Gram-positive cocci in chains. The patient was receiving cefepime and vancomycin. We will also add Flagyl at this point. Aureliano Bird MD
[2024-02-15 19:15] LABS: Reflexed Lactate in 2 Hours Y
[2024-02-15] MEDS: MAGNESIUM SULFATE 2 GM/50 ML PIGGYBACK IV (19:45)
[2024-02-15 19:49] LABS: Lactate 2HR (Lactic Acid Rflx) 2.2 mmol/L (0.7-2.1)
--- NOTE | 2024-02-15 20:06 | P.ICUMDRN_ITS ---
- Date Patient Seen: 02/15/24 :: This patient was seen via real time interactive two-way audiovisual telecommunic ation. Note: Patient admitted for sepsis and alcohol withdrawal. On vanc/cefepime. Flagyl added. CT abdomen/pelvis pending. TTE showed EF 45%. Will continue to trend troponin X [address] and follow up on CT abdomen/pelvis. D/w Dr. Bird and bedside RN.
[2024-02-15 20:55] LABS: Troponin I 0.033 ng/mL (0.01-0.034)
[2024-02-15] MEDS: metroNIDAZOLE 500 MG/100 ML PIGGYBACK 100 MG IV (21:01)
[2024-02-15] MEDS: VANCOMYCIN 1,500 MG/300 ML PIGGYBACK 200 MG IV (22:19)
[2024-02-15 22:28] LABS: Lactate (Lactic Acid) 2.5 mmol/L (0.7-2.1)
--- NOTE | 2024-02-15 23:12 | PM.EICU.INT ---
Teleintensivist Intervention Date/Time Was camera activated?: No Issue(s) Addressed Issue(s): Abnormal labs (Abd/pelvic CT reviewed) Intervention(s) :: No change to plan of care
[2024-02-15 23:49] LABS: Reflexed Lactate in 2 Hours Y
[2024-02-16] VITALS (128 sets, daily range): BP systolic 87–184; BP diastolic 52–77; PULSE 99–154; RESP 1–24; TEMP 36.6–37.2; O2SAT 5–100
[2024-02-16] MEDS: NOREPINEPHRINE 8 MG in DEXTROSE 5% IN WATER 250 ML 15.19 MG IV (00:53)
[2024-02-16] MEDS: ACETAMINOPHEN IV 1,000 MG/100 ML VIAL 400 MG IV (01:10)
[2024-02-16 02:28] LABS: Lactate 2HR (Lactic Acid Rflx) 2.4 mmol/L (0.7-2.1)
[2024-02-16] MEDS: metroNIDAZOLE 500 MG/100 ML PIGGYBACK 100 MG IV ×2 (02:29→07:52)
[2024-02-16 02:42] LABS: Troponin I 0.035 ng/mL (0.01-0.034)
[2024-02-16 04:45] LABS: Hematocrit 36.4 % (41-53); Hemoglobin 11.9 g/dL (13.5-17.5); Mean Corpuscular HGB Conc 32.8 % (30-36); Mean Corpuscular Hemoglobin 27.6 PG (26-34); Mean Corpuscular Volume 84.2 fL (80-100); Platelet Count 186 X10^3/uL (150-400); Red Blood Cell Count 4.32 X10^6/uL (4.5-5.9); Red Cell Distribution Width 13.6 % (11.6-14.8)
[2024-02-16] MEDS: HYDROMORPHONE 0.5 MG INJ 1 MG IV ×3 (04:46→11:07)
[2024-02-16 04:53] LABS: Add Manual Diff / Slide Review YES
[2024-02-16 04:54] LABS: White Blood Cell Count 30.7 X10^3/uL (4.5-11.0)
[2024-02-16 05:10] LABS: Troponin I 0.037 ng/mL (0.01-0.034)
[2024-02-16 05:24] LABS: Neutrophils Absolute Manual 26095 /uL (3000-5900); Total Cells Counted 100
[2024-02-16 05:26] LABS: Alanine Aminotransferase 22 IU/L (<50); Albumin 2.8 g/dL (3.5-5.0); Albumin Globulin Ratio 1.2 (1.0-2.8); Alkaline Phosphatase 91 U/L (38-126); Aspartate Aminotransferase 25 IU/L (17-59); BUN Creatinine Ratio 20.9 (6-22); Bilirubin Total 0.8 mg/dL (0.2-1.3); Blood Urea Nitrogen 41 mg/dL (9-20); Calcium 7.4 mg/dL (8.4-10.2); Carbon Dioxide 15 mmol/L (22-32); Chloride 108 mmol/L (98-107); Estimated Glomerular Filt Rate 35 mL/min (>60); Globulin 2.3 g/dL (1.7-4.1); Glucose 95 mg/dL (80-110); HEMOLYSIS < 15 (0-50); Platelet Estimate Adequate on smear; Potassium 5.3 mmol/L (3.4-5.1); Sodium 136 mmol/L (137-145); Total Protein 5.1 g/dL (6.3-8.2)
[2024-02-16 05:27] LABS: RBC Morphology Normal Morphology; Toxic Vacuolation Present
[2024-02-16] MEDS: BUMETANIDE 1 MG/4 ML VIAL 4 MG IV (05:57)
--- NOTE | 2024-02-16 06:28 | PC.NURSE ---
Apparatus Lineman Note-Patient remains drowsy and confused with intermittent restlessness and agitation. Precedex infusing 0.2-0.3mcg/kg/hr-double strength. IV Dilaudid given for FLACC 6-4-xilpqzskk. Levophed-double strength at 0.12mcg/kg/min-see vital trends. ST, BBB. Drsg changed to RUE, nitro paste applied, tolerated well. Oximask 5L, SpO2 > 92%, RR 8-16, upper airway congestion, rh/wheeze auscultated. Incontinent loose brown stools. 500ml UOP clear dk yellow with small amount of sediment. Mitts on hands to prevent patient from pulling at lines and tubes.
[2024-02-16] MEDS: CEFEPIME 2 GM in SODIUM CHLORIDE 0.9% 100 ML IV (06:50)
[2024-02-16 07:38] LABS: Magnesium 1.9 mg/dL (1.6-2.3)
[2024-02-16] MEDS: NITROGLYCERIN OINT 1 INCH/GM OINT...G. TOP (07:52)
--- NOTE | 2024-02-16 08:34 | DI.US.S_ITS ---
PROCEDURE: US PERIPH VENOUS UP EXTREM RT INDICATIONS: swelling TECHNIQUE: Real-time imaging, as well as color and pulse Doppler interrogation, was performed of the upper extremity deep veins from the inferior neck to the antecubital fossa. COMPARISON: None. FINDINGS: Soft tissue edema is noted on the medial transverse right elbow. The right internal jugular, right subclavian and right axillary, brachial veins are patent. There is occlusion of the right cephalic vein in the mid upper arm, which is noncompressible along a 6.3 centimeter length extending to the right antecubital fossa, likely accounting for the edema. The right basilic vein is patent. IMPRESSION: Thrombosis of the cephalic vein from the antecubital fossa along a 6.3 centimeter length. All other visualized right upper extremity and central veins are patent. Dictated by: Clayton Kilpatrick M.D. on 02/16/2024 at 14:01 Approved by: Clayton Kilpatrick M.D. on 02/16/2024 at 14:04
[2024-02-16] MEDS: FAMOTIDINE 20 MG/2 ML VIAL IV (08:50)
[2024-02-16] MEDS: DEXAMETHASONE 10 MG/ML VIAL 6 MG IV (08:50)
[2024-02-16] MEDS: SODIUM CHLORIDE 0.9% IV (08:51)
[2024-02-16] MEDS: ENOXAPARIN 40 MG/0.4 ML SYRINGE SUBCUT (08:51)
[2024-02-16] MEDS: THIAMINE IV (08:51)
[2024-02-16] MEDS: FOLIC ACID IV (08:51)
[2024-02-16] MEDS: MULTIVITAMIN IV (08:51)
--- NOTE | 2024-02-16 08:55 | DI.RAD.S_ITS ---
PROCEDURE: XR ELBOW RT 2V INDICATIONS: pain, fall TECHNIQUE: 2 views of the elbow were acquired. COMPARISON: None. FINDINGS: Bones: No fractures or dislocations. No suspicious bony lesions. Soft tissues: No elbow joint effusion. No suspicious soft tissue calcifications. IMPRESSION: No acute bony abnormality or significant joint effusion. If clinically indicated consider follow-up radiographs in 10-14 days. Dictated by: Jax Valdez M.D. on 02/16/2024 at 13:47 Approved by: Jax Valdez M.D. on 02/16/2024 at 13:48
[2024-02-16 09:33] LABS: Clostridium Difficile Tox PCR Negative for C. diff (Negative)
--- NOTE | 2024-02-16 09:48 | PM.PN.EICU ---
Subjective Subjective IF CAMERA ACTIVATED, patient seen via real-time interactive audiovisual communication: Camera activated Consent obtained for tele-sign builder care: Yes Patient Location: ICU Provider location (State): Other participants/roles: RN & MD Interval history: Pt on precdex drip, oxy mask 5L, levo at 0.15 mcg/kg/min, good coug and gag per nurse, slightly eyes on verbal stimuli, blood Cx showing group A strep, mentioned taht pt had a wound on his Rt elbow same side were the levo extra vasation happened, now the erythema and swelling expanded quickly almost up to the shoulder, concern for narcotizing fasciitis, now his oliguric THANG has gotten worse with poor repose to diuretics/ Bumex 4 mg IV Group A strep Bacteremia with RUE cellulitis and concern for r narcotizing fasciitis Septic shock THANG/ATN Acute hypoxic respiratory failure 2/2 COVID PNA/ concern for worsening 2ndary bacterial multifocal PNA etoh withdrawal Acute metabolic encephalopathy 2/2 the above H/o of chronic use of BZD, Adderal, opioid and smles Marijuana Rec: Agree with the medicine team to work on transferring to higher level of care for further mgt including need for renal replacement therapy - switching Ab to merpenem, Vanc and clinda, pending RUE scan - Continue Precedex , ciwa score with ativan, haldol prn - Check blood gas to evaluate the need mechanical vent - Wean off levo for MAP goal >60 - 2 D ecfo - IV thiamine/folate -keep NPO -continue Dex -monitor ins/outs -replace lytes prn -keep glucose 140-180s -diet as tolerated -gi/dvt ppx -please call eICU prn CCT 30 MIN Current Medications Current Medications Medications: Home Medications amlodipine 5 mg tablet 5 mg PO BID 02/14/24 [History Confirmed 02/14/24] atorvastatin 40 mg tablet 40 mg PO DAILY 02/14/24 [History Confirmed 02/14/24] betamethasone dipropionate 0.05 % topical cream 1 applic topical DAILY 02/14/24 [History Confirmed 02/14/24] dextroamphetamine sulfate 10 mg tablet 10 mg PO BID 02/14/24 [History Confirmed 02/14/24] hydrocodone 5 mg-acetaminophen 325 mg tablet 1 tab PO BID PRN Pain (Scale Score 4-6) 02/14/24 [History Confirmed 02/14/24] lorazepam 0.5 mg tablet 0.5 mg PO PRN PRN Anxiety 02/14/24 [History Confirmed 02/14/24] losartan 50 mg tablet 50 mg PO DAILY 02/14/24 [History Confirmed 02/14/24] meloxicam 15 mg tablet 15 mg PO DAILY 02/14/24 [History Confirmed 02/14/24] sertraline 50 mg tablet 50 mg PO DAILY 02/14/24 [History Confirmed 02/14/24] Visit Medications (administered) Generic Name Dose Route Start Last Admin Trade Name Freq PRN Reason Stop Dose Admin Albuterol 2.5 mg 02/15/24 08:27 02/15/24 13:35 Albuterol 2.5 Mg/3 Ml Neb (Adult) INH 2.5 mg [id number] PRN Administration Shortness Of Breath Dexamethasone 6 mg 02/14/24 18:40 02/16/24 08:50 Dexamethasone 10 Mg/Ml Vial IV 6 mg DAILY SAMUEL Administration Enoxaparin Sodium 40 mg 02/15/24 09:00 02/16/24 08:51 Enoxaparin 40 Mg/0.4 Ml Syringe SUBCUT 40 mg DAILY SAMUEL Administration Famotidine 20 mg 02/14/24 21:00 02/16/24 08:50 Famotidine 20 Mg/2 Ml Vial IV 20 mg BID SAMUEL Administration Fentanyl 25 mcg 02/15/24 07:45 02/15/24 08:51 Fentanyl 25 Mcg/Patch TOP 25 mcg Q72H SAMUEL Administration Haloperidol 5 mg 02/14/24 18:37 02/15/24 11:27 Haloperidol 5 Mg/Ml Vial IV 5 mg Q1HR PRN Administration Hallucinations Heparin Sodium (Porcine) 50 unit 02/15/24 14:10 02/15/24 16:39 Heparin Flush (Cl/Picc/Mid-Line) 50 Unit/5 Ml Syringe IV 50 unit PRN PRN Administration Flush Hydromorphone HCl 1 mg 02/15/24 14:32 02/16/24 07:54 Hydromorphone 0.5 Mg Inj IV 1 mg Q1HR PRN Administration Pain, Severe (7-10) Cefepime HCl 2 gm/ Sodium 100 mls @ 200 mls/hr 02/14/24 18:45 02/16/24 06:50 Chloride IV 200 mls/hr Q12H SAMUEL Administration Acetaminophen 1,000 mg in 100 mls @ 400 mls/hr 02/14/24 18:41 02/16/24 01:29 Ofirmev IV Infused Q6H PRN Infusion Fever/Mild Pain (1-3) Vancomycin HCl/Dextrose 1,500 mg in 300 mls @ 200 mls/hr 02/14/24 20:00 02/16/24 00:53 Vancomycin IV Infused Q24H SAMUEL Infusion Multivitamins 10 ml/ Folic 1,011.2 mls @ 100 mls/hr 02/15/24 10:00 02/16/24 08:51 Acid 1 mg/ Thiamine HCl 100 mg IV 100 mls/hr / Sodium Chloride DAILY SAMUEL Administration Dexmedetomidine HCl 800 mcg/ 108 mls @ 2.12 mls/hr 02/15/24 16:00 02/16/24 05:39 Sodium Chloride IV 0.2 mcg/kg/hr TITRATE SAMUEL 2.12 mls/hr Titration Protocol 0.2 MCG/KG/HR Norepinephrine Bitartrate 8 mg 258 mls @ 15.19 mls/hr 02/15/24 19:00 02/16/24 08:41 / Dextrose IV 0.1 mcg/kg/min TITRATE SAMUEL 15.19 mls/hr Titration Protocol 0.1 MCG/KG/MIN Metronidazole 500 mg in 100 mls @ 100 mls/hr 02/15/24 20:00 02/16/24 07:52 Flagyl IV 100 mls/hr Q6H SAMUEL Administration Lorazepam 0 mg 02/14/24 18:37 02/14/24 20:07 Lorazepam 2 Mg/Ml Inj IV 2 mg [id number] PRN Administration Alcohol Withdrawal Protocol Nitroglycerin 1 inch 02/15/24 16:00 02/16/24 07:52 Nitroglycerin Oint 1 Inch/Gm Oint...G. TOP 1 inch Q8H SAMUEL Administration Objective Labs 02/16/24 04:25 02/16/24 04:25 Labs: Laboratory Results - last 24 hr 02/14/24 02/15/24 02/15/24 16:25 17:30 19:30 WBC 30.3 H* RBC 4.55 Hgb 12.7 L Hct 38.5 L MCV 84.6 MCH 27.8 MCHC 32.9 RDW 13.6 Plt Count 193 Neut % (Auto) Lymph % (Auto) [place] % (Auto) Eos % (Auto) Baso % (Auto) Lymph # (Auto) [place] # (Auto) Baso # (Auto) Total Counted Seg Neutrophils % Band Neutrophils % Lymphocytes % (Manual) Monocytes % (Manual) Neutrophils # (Manual) Toxic Vacuolation Platelet Estimate RBC Morphology Sodium 136 L Potassium 4.9 D Chloride 109 H Carbon Dioxide 17 L BUN 29 H Creatinine 1.30 H Estimated GFR 57 L BUN/Creatinine Ratio 22.3 H Glucose 146 H Lactate 2.3 H 2.2 H Calcium 7.5 L Magnesium 1.3 L Total Bilirubin 0.7 AST 31 ALT 25 Alkaline Phosphatase 82 Troponin I 0.035 H Total Protein 6.0 L Albumin 3.3 L Globulin 2.7 Albumin/Globulin Ratio 1.2 Procalcitonin 27.3 H A.calcoaceticus-baumannii cmplx PCR Not detected Bacteroides fragilis Not detected Kimberly albicans (PCR) Not detected Kimberly auris (PCR) Not detected C. glabrata (PCR) Not detected C. krusei (PCR) Not detected C. parapsilosis (PCR) Not detected C. tropicalis (PCR) Not detected C. difficile Tox (PCR) C. neoform/gattii (PCR) Not detected Enterobacterales (PCR) Not detected E. cloacae complex PCR Not detected Enterococc faecalis PCR Not detected Enterococc faecium PCR Not detected E. coli (PCR) Not detected H. influenzae (PCR) Not detected Klebsiella aerogenes (PCR) Not detected Klebsiella oxytoca PCR Not detected Klebsiella pneumoniae Not detected List. monocytogenes PCR Not detected N. meningitidis (PCR) Not detected Proteus species (PCR) Not detected Salmonella spp. (PCR) Not detected Serratia marcescens PCR Not detected Staphylococcus sp PCR Not detected Staph aureus (PCR) Not detected mecA/C & MREJ Resist Gene Not applicable mecA/C-Methicil Resis Gene Not applicable mcr-1 Colistin Res Gene PCR Not applicable Staph epidermidis (PCR) Not detected Staph lugdunensis PCR Not detected S. maltophilia (PCR) Not detected Streptococcus sp PCR Detected Group A Strep (PCR) Detected Strep agalactiae (PCR) Not detected Strep pneumoniae (PCR) Not detected P. aeruginosa (PCR) Not detected Neil/B-Vanco Res Genes Not applicable blaIMP Car res Gene PCR Not applicable KPC-Carbap Res Gene PCR Not applicable blaNDM Car Res Gene PCR Not applicable OXA-48 Carbapenem Resis Gene (PCR) Not applicable blaVIM Car Res Gene PCR Not applicable CTX-M Gene Resistance (PCR) Not applicable 02/15/24 02/15/24 02/16/24 20:20 22:05 02:05 WBC RBC Hgb Hct MCV MCH MCHC RDW Plt Count Neut % (Auto) Lymph % (Auto) [place] % (Auto) Eos % (Auto) Baso % (Auto) Lymph # (Auto) [place] # (Auto) Baso # (Auto) Total Counted Seg Neutrophils % Band Neutrophils % Lymphocytes % (Manual) Monocytes % (Manual) Neutrophils # (Manual) Toxic Vacuolation Platelet Estimate RBC Morphology Sodium Potassium Chloride Carbon Dioxide BUN Creatinine Estimated GFR BUN/Creatinine Ratio Glucose Lactate 2.5 H 2.4 H Calcium Magnesium Total Bilirubin AST ALT Alkaline Phosphatase Troponin I 0.033 0.035 H Total Protein Albumin Globulin Albumin/Globulin Ratio Procalcitonin A.calcoaceticus-baumannii cmplx PCR Bacteroides fragilis Kimberly albicans (PCR) Kimberly auris (PCR) C. glabrata (PCR) C. krusei (PCR) C. parapsilosis (PCR) C. tropicalis (PCR) C. difficile Tox (PCR) C. neoform/gattii (PCR) Enterobacterales (PCR) E. cloacae complex PCR Enterococc faecalis PCR Enterococc faecium PCR E. coli (PCR) H. influenzae (PCR) Klebsiella aerogenes (PCR) Klebsiella oxytoca PCR Klebsiella pneumoniae List. monocytogenes PCR N. meningitidis (PCR) Proteus species (PCR) Salmonella spp. (PCR) Serratia marcescens PCR Staphylococcus sp PCR Staph aureus (PCR) mecA/C & MREJ Resist Gene mecA/C-Methicil Resis Gene mcr-1 Colistin Res Gene PCR Staph epidermidis (PCR) Staph lugdunensis PCR S. maltophilia (PCR) Streptococcus sp PCR Group A Strep (PCR) Strep agalactiae (PCR) Strep pneumoniae (PCR) P. aeruginosa (PCR) Neil/B-Vanco Res Genes blaIMP Car res Gene PCR KPC-Carbap Res Gene PCR blaNDM Car Res Gene PCR OXA-48 Carbapenem Resis Gene (PCR) blaVIM Car Res Gene PCR CTX-M Gene Resistance (PCR) 02/16/24 02/16/24 04:25 08:30 WBC 30.7 H* RBC 4.32 L Hgb 11.9 L Hct 36.4 L MCV 84.2 MCH 27.6 MCHC 32.8 RDW 13.6 Plt Count 186 Neut % (Auto) Not Reportable Lymph % (Auto) Not Reportable [place] % (Auto) Not Reportable Eos % (Auto) Not Reportable Baso % (Auto) Not Reportable Lymph # (Auto) Not Reportable [place] # (Auto) Not Reportable Baso # (Auto) Not Reportable Total Counted 100 Seg Neutrophils % 18.0 L D Band Neutrophils % 67.0 H Lymphocytes % (Manual) 5.0 L Monocytes % (Manual) 10.0 Neutrophils # (Manual) 06454 H Toxic Vacuolation Present H Platelet Estimate Adequate on smear RBC Morphology Normal morphology Sodium 136 L Potassium 5.3 H Chloride 108 H Carbon Dioxide 15 L BUN 41 H Creatinine 1.96 H Estimated GFR 35 L BUN/Creatinine Ratio 20.9 Glucose 95 Lactate 2.0 Calcium 7.4 L Magnesium 1.9 Total Bilirubin 0.8 AST 25 ALT 22 Alkaline Phosphatase 91 Troponin I 0.037 H Total Protein 5.1 L Albumin 2.8 L Globulin 2.3 Albumin/Globulin Ratio 1.2 Procalcitonin A.calcoaceticus-baumannii cmplx PCR Bacteroides fragilis Kimberly albicans (PCR) Kimberly auris (PCR) C. glabrata (PCR) C. krusei (PCR) C. parapsilosis (PCR) C. tropicalis (PCR) C. difficile Tox (PCR) Negative for c. diff C. neoform/gattii (PCR) Enterobacterales (PCR) E. cloacae complex PCR Enterococc faecalis PCR Enterococc faecium PCR E. coli (PCR) H. influenzae (PCR) Klebsiella aerogenes (PCR) Klebsiella oxytoca PCR Klebsiella pneumoniae List. monocytogenes PCR N. meningitidis (PCR) Proteus species (PCR) Salmonella spp. (PCR) Serratia marcescens PCR Staphylococcus sp PCR Staph aureus (PCR) mecA/C & MREJ Resist Gene mecA/C-Methicil Resis Gene mcr-1 Colistin Res Gene PCR Staph epidermidis (PCR) Staph lugdunensis PCR S. maltophilia (PCR) Streptococcus sp PCR Group A Strep (PCR) Strep agalactiae (PCR) Strep pneumoniae (PCR) P. aeruginosa (PCR) Neil/B-Vanco Res Genes blaIMP Car res Gene PCR KPC-Carbap Res Gene PCR blaNDM Car Res Gene PCR OXA-48 Carbapenem Resis Gene (PCR) blaVIM Car Res Gene PCR CTX-M Gene Resistance (PCR) Exam Vital Signs (past 8 hours): - 02/16/24 02:00 02/16/24 02:00 02/16/24 02:15 Temperature 98.8 F 98.8 F Pulse Rate 103 H 103 H Respiratory Rate 9 L 10 L Blood Pressure 106/66 Pulse Oximetry 94 94 Oxygen Delivery Method 02/16/24 02:30 02/16/24 02:30 02/16/24 02:45 Temperature 98.8 F 98.8 F Pulse Rate 102 H 102 H Respiratory Rate 9 L 9 L Blood Pressure 106/60 Pulse Oximetry 94 94 Oxygen Delivery Method 02/16/24 03:00 02/16/24 03:00 02/16/24 03:15 Temperature 98.6 F 98.6 F Pulse Rate 103 H 102 H Respiratory Rate 9 L 9 L Blood Pressure 104/63 Pulse Oximetry 95 94 Oxygen Delivery Method 02/16/24 03:30 02/16/24 03:30 02/16/24 03:45 Temperature 98.6 F 98.6 F Pulse Rate 102 H 101 H Respiratory Rate 10 L 9 L Blood Pressure 109/64 Pulse Oximetry 94 94 Oxygen Delivery Method 02/16/24 04:00 02/16/24 04:00 02/16/24 04:15 Temperature 98.6 F 98.6 F Pulse Rate 101 H 102 H Respiratory Rate 9 L 9 L Blood Pressure 106/59 L Pulse Oximetry 95 95 Oxygen Delivery Method 02/16/24 04:30 02/16/24 04:30 02/16/24 04:30 Temperature 98.6 F Pulse Rate 100 H Respiratory Rate 10 L Blood Pressure 121/65 Pulse Oximetry 94 Oxygen Delivery Method Oximask 02/16/24 04:45 02/16/24 05:00 02/16/24 05:00 Temperature 98.4 F 98.4 F Pulse Rate 104 H 104 H Respiratory Rate 13 8 L Blood Pressure 117/72 Pulse Oximetry 96 94 Oxygen Delivery Method 02/16/24 05:15 02/16/24 05:30 02/16/24 05:30 Temperature 98.6 F 98.6 F Pulse Rate 101 H 101 H Respiratory Rate 9 L 9 L Blood Pressure 102/62 Pulse Oximetry 94 94 Oxygen Delivery Method 02/16/24 05:45 02/16/24 06:00 02/16/24 06:00 Temperature 98.6 F 98.4 F Pulse Rate 102 H 101 H Respiratory Rate 7 L 7 L Blood Pressure 102/63 Pulse Oximetry 94 95 Oxygen Delivery Method 02/16/24 06:15 02/16/24 06:30 02/16/24 06:30 Temperature 98.4 F 98.2 F Pulse Rate 104 H 104 H Respiratory Rate 11 L 8 L Blood Pressure 101/69 Pulse Oximetry 95 95 Oxygen Delivery Method 02/16/24 06:45 02/16/24 07:00 02/16/24 07:00 Temperature 98.2 F 98.2 F Pulse Rate 101 H 105 H Respiratory Rate 8 L 11 L Blood Pressure 141/63 H Pulse Oximetry 95 95 Oxygen Delivery Method 02/16/24 07:15 02/16/24 07:30 02/16/24 07:30 Temperature 98.2 F 98.2 F Pulse Rate 109 H 109 H Respiratory Rate 10 L 10 L Blood Pressure 153/73 H Pulse Oximetry 93 95 Oxygen Delivery Method 02/16/24 07:45 02/16/24 07:52 02/16/24 08:00 Temperature 98.2 F Pulse Rate 109 H 108 H Respiratory Rate 12 Blood Pressure 153/73 H 184/77 H Pulse Oximetry 95 Oxygen Delivery Method 02/16/24 08:00 02/16/24 08:00 02/16/24 08:15 Temperature 98.2 F 98.4 F Pulse Rate 110 H 109 H Respiratory Rate 13 11 L Blood Pressure Pulse Oximetry 96 91 Oxygen Delivery Method Oximask 02/16/24 08:21 02/16/24 08:21 02/16/24 08:30 Temperature 98.4 F Pulse Rate 108 H Respiratory Rate 9 L Blood Pressure 121/60 106/52 L Pulse Oximetry 92 Oxygen Delivery Method 02/16/24 08:30 Temperature 98.4 F Pulse Rate 101 H Respiratory Rate 8 L Blood Pressure Pulse Oximetry 93 Oxygen Delivery Method Oxygen Delivery Method Oximask Oxygen Flow Rate 5 Assessment & Plan Time-Based Coding :: [TOTAL MINUTES] spent with patient and on the chart (including review of chart, obtaining history, exam, reviewing outside data, placing orders, documenting exam and treatment plan, and counseling patient) on [DATE].
[2024-02-16] MEDS: PIPERACILLIN/TAZO 4.5 GM in SODIUM CHLORIDE 0.9% 100 ML IV (10:06)
[2024-02-16] MEDS: LINEZOLID 600 MG/300 ML IV.SOLN IV (10:07)
[2024-02-16 10:10] LABS: Base Excess VBG -9.8 mmol/L (0-4); HCO3 VBG 17 mmol/L (24-28); Oxygen Saturation VBG 78 % (70-75); PCO2 VBG 41.2 mmHg (45-50); PO2 VBG 50 mmHg (35-45); Total CO2 VBG 17 mmol/L (24-29); pH VBG 7.23 (7.33-7.43)
--- NOTE | 2024-02-16 10:25 | P.DS_ITS ---
History of Present Illness History of Present Illness Date Patient Seen: 02/16/24 Time Patient Seen: 07:50 Date of Onset of Symptoms: 02/14/24 Chief complaint: cold symptoms, + for covid today, high hr, vomit Narrative: Narrative: From ED doctor: Patient tested positive for COVID today according to . He has not felt well for the past 2-3 days. He does drink alcohol. Last drink about 2 days ago. No seizures. No hallucinations. Rectal temp 104.2?. Oral ibuprofen 800 mg and IV Tylenol 1000 mg ordered. Patient is awake alert oriented x4. He is restless though. Denies any chest pain or shortness of breath. Denies any headache. No cough cold or congestion. Additional information: The patient was been ill for about a week with COVID symptoms including URI symptoms and a very severe cough. Today became more lethargic and febrile as well as somewhat confused. He was brought to the emergency department where he was tachycardic and found to have a temperature of 104?. He was given IV Tylenol and ibuprofen with improvement of fever. Chest x-ray was fairly unremarkable. He was somewhat hypoxic requiring 3 L of oxygen. He was not had diarrhea that his knows of this week. He does drink on a regular basis but has not been having much last day or 2 from her perspective because he has been ill. The patient is moderately to severely ill and somewhat confused and really not able to participate in additional history or comply with review of systems. ED course: In the ER he exhibited agitation and there was concern for alcohol withdrawal. He had marginal response to Ativan but did improve with Dilaudid. There is a question of continuous opiate use at home with Vicodin for lower back pain. In addition he was given phenobarbital 230 mg with marginal response and ceftriaxone 2 g IV. Blood cultures were obtained. He was then started on a Precedex drip with better control his symptoms. He was given IV Tylenol and ibuprofen for fever. 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 Possible right arm necrotizing fasciitis versus norepinephrine infiltration, with right arm necrosis and progression of swelling to shoulder level 2. Probable right antecubital fossa norepinephrine infiltration 3. Right upper extremity cephalic vein thrombosis (ultrasound not formally read by radiology at time of transfer) 4. Acute kidney injury, acute tubular necrosis, possible volume depletion prerenal injury from diuresis and septic shock 5. COVID positive at home with a negative PCR here, notpresent on admission and active. 6. Possible bacterial pneumonia, present on admission and active. 7. Significant fever, present on admission and improved. 8. Septic shock tachycardia, with fever, leukocytosis, and a mild lactic acidosis of 2.2. 9. Possible alcohol use disorder and withdrawal, present on admission and active. 10. Acute septic encephalopathy, present on admission and active. 11. Clinical evidence of volume depletion, present on admission and active. 12. Possible opiate dependence, present on admission and active. 13. Pulmonary edema, new and active. Hospital Course: The patient was admitted and started on fluid boluses, antipyretics, antibiotics with vancomycin and cefepime and measures for acute alcohol withdrawal and agitation noted in the emergency department. Although he had tested positive for COVID on a home test he tested negative on a PCR panel on admission. The patient had a history of alcohol use on a daily basis but this was not felt to be significant by the patient's or known history. His initial blood pressure was mildly low with a mean arterial pressure over 65. He was started on pressor support through right antecubital peripheral IV line with norepinephrine. He was mildly hypoxic requiring several L of oxygen by nasal cannula to maintain oxygen saturations over 90%. He appeared to develop a local extravasation reaction on his posterior forearm. A central line was placed approximately 2 hours after his arrival to the ICU and norepinephrine continued through this line. He appeared to improve overnight but remained encephalopathic, with resolution of fever, but persistent severe leukocytosis. He was administered Precedex for possible alcohol withdrawal as well as sedation. Echocardiography demonstrated depressed ejection fraction with global hypokinesis, 35-40%. He had a distal history of coronary vasospasm with normal coronary angiogram in [place] several years prior. He was on chronic opioid therapy as an outpatient and responded to IV hydromorphone overnight, with lorazepam not effective for agitation. Lactic acid improved from a peak of 2.7- 2.0 on the day of transfer. One of 2 blood cultures grew out Gram-positive cocci in chains, later identified as group a Streptococcus. Throat culture was negative at discharge. The patient's noticed that besides the upper respiratory illness over the preceding week that he had fallen a couple of days before admission and sustained a small right elbow abrasion and on the morning of admission she noticed increased swelling in the right elbow. On the day of transfer the patient's right arm was increasingly swollen up to the elbow. An ultrasound showed a possible cephalic vein DVT per the manufacturing test technician with final radiology read pending. The patient's white count was 30.7 with 67% band forms. His creatinine kiera to 1.96 mg/dL. Although mildly sedated on Precedex he was considered encephalopathic. He was on 5 L of oxygen. The progression of swelling in the arm was concerning for possible necrotizing fasciitis, possibly from a pre-existing right elbow abrasion site of entry, with group a streptococcal blood culture positivity. 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 Surgery performed bedside consultation and exam with Dr. Zachariah Garcia at the time of discussions of transfer to tertiary facility [facility] with Dr. Albert Vera. Additionally, tele ICU Dr. Sid Matta was present remotely for further discussion. The consensus among all was that the patient would be best served in a tertiary level facility for surgical exploration of the right arm and subsequent multidisciplinary support, including impregnator and drier, Nephrology, Cardiology and Infectious Disease Services. The clinical situation was reviewed with the patient's Chantell at bedside. The risk of serious decline, deterioration with the tendon morbidity and mortality was discussed, including specifically the risk of amputation, limb loss, and . She was in agreement with this plan of care. At the time of transport the patient is is being stabilized with intubation and mechanical ventilation as requested by the air ambulance services. 90 minutes of critical care time spent. Status at Discharge Cognitive/behavioral status at discharge: confused Functional status at discharge: bed bound Overall status at discharge: other (critically ill) Exam Vital Signs (past 8 hours): - 02/16/24 02:30 02/16/24 02:30 02/16/24 02:45 Temperature 98.8 F 98.8 F Pulse Rate 102 H 102 H Respiratory Rate 9 L 9 L Blood Pressure 106/60 Pulse Oximetry 94 94 Oxygen Delivery Method 02/16/24 03:00 02/16/24 03:00 02/16/24 03:15 Temperature 98.6 F 98.6 F Pulse Rate 103 H 102 H Respiratory Rate 9 L 9 L Blood Pressure 104/63 Pulse Oximetry 95 94 Oxygen Delivery Method 02/16/24 03:30 02/16/24 03:30 02/16/24 03:45 Temperature 98.6 F 98.6 F Pulse Rate 102 H 101 H Respiratory Rate 10 L 9 L Blood Pressure 109/64 Pulse Oximetry 94 94 Oxygen Delivery Method 02/16/24 04:00 02/16/24 04:00 02/16/24 04:15 Temperature 98.6 F 98.6 F Pulse Rate 101 H 102 H Respiratory Rate 9 L 9 L Blood Pressure 106/59 L Pulse Oximetry 95 95 Oxygen Delivery Method 02/16/24 04:30 02/16/24 04:30 02/16/24 04:30 Temperature 98.6 F Pulse Rate 100 H Respiratory Rate 10 L Blood Pressure 121/65 Pulse Oximetry 94 Oxygen Delivery Method Oximask 02/16/24 04:45 02/16/24 05:00 02/16/24 05:00 Temperature 98.4 F 98.4 F Pulse Rate 104 H 104 H Respiratory Rate 13 8 L Blood Pressure 117/72 Pulse Oximetry 96 94 Oxygen Delivery Method 02/16/24 05:15 02/16/24 05:30 02/16/24 05:30 Temperature 98.6 F 98.6 F Pulse Rate 101 H 101 H Respiratory Rate 9 L 9 L Blood Pressure 102/62 Pulse Oximetry 94 94 Oxygen Delivery Method 02/16/24 05:45 02/16/24 06:00 02/16/24 06:00 Temperature 98.6 F 98.4 F Pulse Rate 102 H 101 H Respiratory Rate 7 L 7 L Blood Pressure 102/63 Pulse Oximetry 94 95 Oxygen Delivery Method 02/16/24 06:15 02/16/24 06:30 02/16/24 06:30 Temperature 98.4 F 98.2 F Pulse Rate 104 H 104 H Respiratory Rate 11 L 8 L Blood Pressure 101/69 Pulse Oximetry 95 95 Oxygen Delivery Method 02/16/24 06:45 02/16/24 07:00 02/16/24 07:00 Temperature 98.2 F 98.2 F Pulse Rate 101 H 105 H Respiratory Rate 8 L 11 L Blood Pressure 141/63 H Pulse Oximetry 95 95 Oxygen Delivery Method 02/16/24 07:15 02/16/24 07:30 02/16/24 07:30 Temperature 98.2 F 98.2 F Pulse Rate 109 H 109 H Respiratory Rate 10 L 10 L Blood Pressure 153/73 H Pulse Oximetry 93 95 Oxygen Delivery Method 02/16/24 07:45 02/16/24 07:52 02/16/24 08:00 Temperature 98.2 F Pulse Rate 109 H 108 H Respiratory Rate 12 Blood Pressure 153/73 H 184/77 H Pulse Oximetry 95 Oxygen Delivery Method 02/16/24 08:00 02/16/24 08:00 02/16/24 08:15 Temperature 98.2 F 98.4 F Pulse Rate 110 H 109 H Respiratory Rate 13 11 L Blood Pressure Pulse Oximetry 96 91 Oxygen Delivery Method Oximask 02/16/24 08:21 02/16/24 08:21 02/16/24 08:30 Temperature 98.4 F Pulse Rate 108 H Respiratory Rate 9 L Blood Pressure 121/60 106/52 L Pulse Oximetry 92 Oxygen Delivery Method 02/16/24 08:30 02/16/24 08:45 02/16/24 09:00 Temperature 98.4 F 98.6 F 98.4 F Pulse Rate 101 H 104 H 103 H Respiratory Rate 8 L 8 L 9 L Blood Pressure Pulse Oximetry 93 95 95 Oxygen Delivery Method 02/16/24 09:00 02/16/24 09:15 02/16/24 09:28 Temperature 98.2 F Pulse Rate 105 H Respiratory Rate 8 L Blood Pressure 105/57 L 116/64 Pulse Oximetry 96 Oxygen Delivery Method 02/16/24 09:28 02/16/24 09:30 02/16/24 09:30 Temperature 98.2 F 98.2 F Pulse Rate 103 H 102 H Respiratory Rate 7 L 7 L Blood Pressure 112/59 L Pulse Oximetry 96 95 Oxygen Delivery Method 02/16/24 09:45 Temperature 98.1 F Pulse Rate 101 H Respiratory Rate 9 L Blood Pressure Pulse Oximetry 96 Oxygen Delivery Method Oxygen Delivery Method Oximask Oxygen Flow Rate 5 Narrative Exam Narrative: Confused and in moderate distress. Tachypnea. Simple mask. Opens eyes and tracks when asked to but quickly closes eyes and without verbal response (on Precedex). Lungs are rhonchorous with increased effort and rate of respirations. Heart is tachycardic, no murmur gallop or rub. Abdomen is soft, and distended. Extremities are free of edema. He does have obvious skin sloughing with extravasation injury on the right arm in the posterior aspect of the forearm up to just above the elbow with a 7 x 10 cm area of necrosis at the elbow. 2+ radial pulse. Digits are swollen from yesterday with progressive swelling in the hand. There is a small scratch in the back of his right hand his states had happened a few days before from scratching. There is swelling into the right upper arm and shoulder with mild mottling in the right axilla into the lateral pectoralis. Neurologic: Moves arms and legs spontaneously, his gaze is conjugate. Objective Imaging *: Radiologist's impression: 1. Chest x-ray 02/14/2024: Limited single view radiograph with low lung volumes. No acute abnormality. 2. Chest x-ray 02/14/2024: Central venous catheter is above. 3. Echocardiogram 02/15/2024: 1. The left ventricular contractility is mildly compromised. Estimate ejection fraction is 40 to 45% with global hypokinesis. No LVH. Unable to comment on diastolic function. 2. The right ventricle was not well-visualized. However in limited views the right ventricular contractility appears borderline. 3. All cardiac chambers are of normal size. 4. No significant valvular abnormalities. 5. No obvious intracardiac shunts. 6. No obvious intracardiac masses nor thrombi. 7. No hemodynamically significant pericardial effusion. 8. Low right-sided filling pressures. Conclusion: Mildly compromised biventricular systolic function with no significant valvular abnormalities. 4. Chest x-ray 02/15/2024: Mild diffuse lung disease, possibly edema or infection. This is similar to prior. Consider future imaging surveillance to assess for resolution. Cardiomegaly is unchanged. Right central line terminates in the lower SVC 5. Chest/abdomen/pelvis CT 02/15/2024: 1. Small bilateral pleural effusion with suggestion of infiltrate versus dependent atelectasis in posterior aspect of bilateral lower lobes extending to bilateral infrahilar region. 2. Suggestion of mild pulmonary edema. No pneumothorax. Airway is patent. 3. Prominent size of main pulmonary artery which can be seen associated with pulmonary vascular hypertension. Mild ascending thoracic aortic aneurysm measures up to 4.3 cm in largest AP diameter. No abdominal aortic aneurysm. 4. Nonspecific enlarged left supraclavicular lymph node which may be reactive in nature. Subcentimeter lymph nodes are seen in bilateral axilla, mediastinum and retroperitoneal space as above. 5. No bowel obstruction or abnormal bowel wall thickening. No free fluid or free air. Sigmoid diverticulosis without evidence of acute diverticulitis. No abscess collection. 6. Roland catheter in decompressed urinary bladder. Questionable bladder wall thickening, low-grade cystitis cannot be excluded. Enlarged prostate gland with mass effect on floor of urinary bladder. 6. Right upper extremity ultrasound 02/16/2024: Pending 7. Right elbow x-ray 02/16/2024: Pending 8. Chest x-ray 02/16/2024: Pending Labs 02/16/24 04:25 02/16/24 04:25 Labs: Laboratory Results - last 24 hr 02/14/24 02/15/24 02/15/24 16:25 17:30 19:30 WBC 30.3 H* RBC 4.55 Hgb 12.7 L Hct 38.5 L MCV 84.6 MCH 27.8 MCHC 32.9 RDW 13.6 Plt Count 193 Neut % (Auto) Lymph % (Auto) [place] % (Auto) Eos % (Auto) Baso % (Auto) Lymph # (Auto) [place] # (Auto) Baso # (Auto) Total Counted Seg Neutrophils % Band Neutrophils % Lymphocytes % (Manual) Monocytes % (Manual) Neutrophils # (Manual) Toxic Vacuolation Platelet Estimate RBC Morphology VBG pH VBG pCO2 VBG pO2 VBG HCO3 VBG Total CO2 VBG O2 Saturation VBG Base Excess Sodium 136 L Potassium 4.9 D Chloride 109 H Carbon Dioxide 17 L BUN 29 H Creatinine 1.30 H Estimated GFR 57 L BUN/Creatinine Ratio 22.3 H Glucose 146 H Lactate 2.3 H 2.2 H Calcium 7.5 L Magnesium 1.3 L Total Bilirubin 0.7 AST 31 ALT 25 Alkaline Phosphatase 82 Troponin I 0.035 H Total Protein 6.0 L Albumin 3.3 L Globulin 2.7 Albumin/Globulin Ratio 1.2 Procalcitonin 27.3 H A.calcoaceticus-baumannii cmplx PCR Not detected Bacteroides fragilis Not detected Kimberly albicans (PCR) Not detected Kimberly auris (PCR) Not detected C. glabrata (PCR) Not detected C. krusei (PCR) Not detected C. parapsilosis (PCR) Not detected C. tropicalis (PCR) Not detected C. difficile Tox (PCR) C. neoform/gattii (PCR) Not detected Enterobacterales (PCR) Not detected E. cloacae complex PCR Not detected Enterococc faecalis PCR Not detected Enterococc faecium PCR Not detected E. coli (PCR) Not detected H. influenzae (PCR) Not detected Klebsiella aerogenes (PCR) Not detected Klebsiella oxytoca PCR Not detected Klebsiella pneumoniae Not detected List. monocytogenes PCR Not detected N. meningitidis (PCR) Not detected Proteus species (PCR) Not detected Salmonella spp. (PCR) Not detected Serratia marcescens PCR Not detected Staphylococcus sp PCR Not detected Staph aureus (PCR) Not detected mecA/C & MREJ Resist Gene Not applicable mecA/C-Methicil Resis Gene Not applicable mcr-1 Colistin Res Gene PCR Not applicable Staph epidermidis (PCR) Not detected Staph lugdunensis PCR Not detected S. maltophilia (PCR) Not detected Streptococcus sp PCR Detected Group A Strep (PCR) Detected Strep agalactiae (PCR) Not detected Strep pneumoniae (PCR) Not detected P. aeruginosa (PCR) Not detected Neil/B-Vanco Res Genes Not applicable blaIMP Car res Gene PCR Not applicable KPC-Carbap Res Gene PCR Not applicable blaNDM Car Res Gene PCR Not applicable OXA-48 Carbapenem Resis Gene (PCR) Not applicable blaVIM Car Res Gene PCR Not applicable CTX-M Gene Resistance (PCR) Not applicable 02/15/24 02/15/24 02/16/24 20:20 22:05 02:05 WBC RBC Hgb Hct MCV MCH MCHC RDW Plt Count Neut % (Auto) Lymph % (Auto) Imperial % (Auto) Eos % (Auto) Baso % (Auto) Lymph # (Auto) [place] # (Auto) Baso # (Auto) Total Counted Seg Neutrophils % Band Neutrophils % Lymphocytes % (Manual) Monocytes % (Manual) Neutrophils # (Manual) Toxic Vacuolation Platelet Estimate RBC Morphology VBG pH VBG pCO2 VBG pO2 VBG HCO3 VBG Total CO2 VBG O2 Saturation VBG Base Excess Sodium Potassium Chloride Carbon Dioxide BUN Creatinine Estimated GFR BUN/Creatinine Ratio Glucose Lactate 2.5 H 2.4 H Calcium Magnesium Total Bilirubin AST ALT Alkaline Phosphatase Troponin I 0.033 0.035 H Total Protein Albumin Globulin Albumin/Globulin Ratio Procalcitonin A.calcoaceticus-baumannii cmplx PCR Bacteroides fragilis Kimberly albicans (PCR) Kimberly auris (PCR) C. glabrata (PCR) C. krusei (PCR) C. parapsilosis (PCR) C. tropicalis (PCR) C. difficile Tox (PCR) C. neoform/gattii (PCR) Enterobacterales (PCR) E. cloacae complex PCR Enterococc faecalis PCR Enterococc faecium PCR E. coli (PCR) H. influenzae (PCR) Klebsiella aerogenes (PCR) Klebsiella oxytoca PCR Klebsiella pneumoniae List. monocytogenes PCR N. meningitidis (PCR) Proteus species (PCR) Salmonella spp. (PCR) Serratia marcescens PCR Staphylococcus sp PCR Staph aureus (PCR) mecA/C & MREJ Resist Gene mecA/C-Methicil Resis Gene mcr-1 Colistin Res Gene PCR Staph epidermidis (PCR) Staph lugdunensis PCR S. maltophilia (PCR) Streptococcus sp PCR Group A Strep (PCR) Strep agalactiae (PCR) Strep pneumoniae (PCR) P. aeruginosa (PCR) Neil/B-Vanco Res Genes blaIMP Car res Gene PCR KPC-Carbap Res Gene PCR blaNDM Car Res Gene PCR OXA-48 Carbapenem Resis Gene (PCR) blaVIM Car Res Gene PCR CTX-M Gene Resistance (PCR) 02/16/24 02/16/24 02/16/24 04:25 08:30 10:06 WBC 30.7 H* RBC 4.32 L Hgb 11.9 L Hct 36.4 L MCV 84.2 MCH 27.6 MCHC 32.8 RDW 13.6 Plt Count 186 Neut % (Auto) Not Reportable Lymph % (Auto) Not Reportable Imperial % (Auto) Not Reportable Eos % (Auto) Not Reportable Baso % (Auto) Not Reportable Lymph # (Auto) Not Reportable [place] # (Auto) Not Reportable Baso # (Auto) Not Reportable Total Counted 100 Seg Neutrophils % 18.0 L D Band Neutrophils % 67.0 H Lymphocytes % (Manual) 5.0 L Monocytes % (Manual) 10.0 Neutrophils # (Manual) 41273 H Toxic Vacuolation Present H Platelet Estimate Adequate on smear RBC Morphology Normal morphology VBG pH 7.23 L VBG pCO2 41.2 L VBG pO2 50 H VBG HCO3 17 L VBG Total CO2 17 L VBG O2 Saturation 78 H VBG Base Excess -9.8 L Sodium 136 L Potassium 5.3 H Chloride 108 H Carbon Dioxide 15 L BUN 41 H Creatinine 1.96 H Estimated GFR 35 L BUN/Creatinine Ratio 20.9 Glucose 95 Lactate 2.0 Calcium 7.4 L Magnesium 1.9 Total Bilirubin 0.8 AST 25 ALT 22 Alkaline Phosphatase 91 Troponin I 0.037 H Total Protein 5.1 L Albumin 2.8 L Globulin 2.3 Albumin/Globulin Ratio 1.2 Procalcitonin A.calcoaceticus-baumannii cmplx PCR Bacteroides fragilis Kimberly albicans (PCR) Kimberly auris (PCR) C. glabrata (PCR) C. krusei (PCR) C. parapsilosis (PCR) C. tropicalis (PCR) C. difficile Tox (PCR) Negative for c. diff C. neoform/gattii (PCR) Enterobacterales (PCR) E. cloacae complex PCR Enterococc faecalis PCR Enterococc faecium PCR E. coli (PCR) H. influenzae (PCR) Klebsiella aerogenes (PCR) Klebsiella oxytoca PCR Klebsiella pneumoniae List. monocytogenes PCR N. meningitidis (PCR) Proteus species (PCR) Salmonella spp. (PCR) Serratia marcescens PCR Staphylococcus sp PCR Staph aureus (PCR) mecA/C & MREJ Resist Gene mecA/C-Methicil Resis Gene mcr-1 Colistin Res Gene PCR Staph epidermidis (PCR) Staph lugdunensis PCR S. maltophilia (PCR) Streptococcus sp PCR Group A Strep (PCR) Strep agalactiae (PCR) Strep pneumoniae (PCR) P. aeruginosa (PCR) Neil/B-Vanco Res Genes blaIMP Car res Gene PCR KPC-Carbap Res Gene PCR blaNDM Car Res Gene PCR OXA-48 Carbapenem Resis Gene (PCR) blaVIM Car Res Gene PCR CTX-M Gene Resistance (PCR) [facility] Medical History Breast mass, right Gynecomastia Depression, major Rising PSA level BPH w urinary obs/LUTS History of colonic polyps Right cervical radiculopathy Psoriatic arthritis Mixed hyperlipidemia Essential hypertension Attention deficit disorder predominant inattentive type Chronic, continuous use of opioids Primary osteoarthritis involving multiple joints Back pain, chronic Macular pucker, left eye Cataracts, bilateral Post-nasal drip Spondylolisthesis, lumbar region Spinal stenosis, lumbar region without neurogenic claudication Postlaminectomy syndrome, not elsewhere classified History of Mohs micrographic surgery for skin cancer (2019) Psoriasis Postlaminectomy syndrome Spinal stenosis Arthritis Acid reflux Hx of Prinzmetal angina (~1999) Hearing impaired Sciatica Osteoarthritis Hyperlipidemia Surgical History Anesthesia History of eye surgery S/P excision of lipoma (05/2016) Hx of parotidectomy (1960) History of back surgery (~2002) Hx of laminectomy (~2008) Hx of tonsillectomy History of surgery (10/2019) History of phacoemulsification of cataract of left eye with intraocular lens implantation Family History Father Cancer Mother Cancer Grandfather Cancer Grandmother Cancer Social History marital status: household members: spouse lives independently: Yes occupational status: previously employed Smoking Status: Former smoker alcohol intake: current substance use type: does not use Discharge Plan Discharge Plan Patient Disposition: [facility] Discharge Data Primary Care Provider: Lito Powell MIPS - Admit I confirm the patient?s Advance Care Plan is present, Code status is documented, Surrogate decision maker is in patient?s record [If Yes, STOP here]: Yes MIPS - Meds 'Current medications' to include all prescriptions, yajt-skw-putllcu products, herbals, cannabis/cannabidiol products, and vitamin/mineral/dietary (nutritional) supplements. I have utilized all available resources to obtain, update, or review the patient?s current medications. [If Yes, STOP here]: Yes MIPS - DC The patient has a history of heart transplant or Left Ventricular Assist Device (LVAD). If yes, STOP here.: Yes The patient has current or prior documentation of left ventricular ejection fraction (LVEF) less than or equal to 40%, or moderate or severely depressed left ventricular systolic function.: No A. The patient was prescribed or already taking an Angiotensin-Converting Enzyme (OZZY) Inhibitor, or Angiotensin Receptor Nolberto (ARB).: Yes B. The patient was prescribed or already taking a beta-nolberto. [If Yes to Both A & B, STOP here]: No Patient not prescribed/taking OZZY or ARB, no reason given.: No Patient not prescribed/taking beta-nolberto, no reason given.: No
[2024-02-16] MEDS: propofoL 200 MG/20 ML VIAL 100 MG IV (10:38)
[2024-02-16] MEDS: SUCCINYLCHOLINE 200 MG/10 ML VIAL 120 MG IV (10:38)
[2024-02-16] MEDS: propofoL 1,000 MG/100 ML VIAL 2.355 MG IV (10:41)
--- NOTE | 2024-02-16 10:45 | DI.RAD.S_ITS ---
PROCEDURE: XR CHEST 1V INDICATIONS: ET tube placement TECHNIQUE: One view of the chest was acquired. COMPARISON: [facility], CR, XR CHEST 1V, 02/16/2024, 9:07. FINDINGS: Surgical changes and devices: ET tube 2.6 centimeters superior to the franci. Stable right IJ central venous catheter. Lungs and pleura: Increasing opacification left lung base. No pleural effusions or pneumothorax. Mediastinum: Mediastinal contours appear normal. Heart size is normal. Bones and chest wall: No suspicious bony lesions. Overlying soft tissues appear unremarkable. IMPRESSION: ET tube 2.6 centimeters above the franci. Increasing left basilar opacification which could represent atelectasis, aspiration or pneumonia. Dictated by: Phyllis Awad MD, PhD on 02/16/2024 at 12:24 Approved by: Phyllis Awad MD, PhD on 02/16/2024 at 12:26
--- NOTE | 2024-02-16 10:48 | PM.PROC.1 ---
Procedures Date/Time Date of procedure: 02/16/24 Time of procedure: 10:35 Intubation Time out performed: Yes Sedative: other (Propofol) Mg given: 100 Paralytic: succinylcholine Mg given: 120 Laryngoscope: other (Glidescope LoPro 3 blade) Assist device used: other (rigid stylet) ET tube size: 7.5 ET tube uncuffed: Yes Tube secured depth (cm): 23 Tube secured location: lips Tube placement confirmation: visualized tube passing through cords, equal breath sounds bilaterally and confirmation by capnometry Patient tolerated procedure: no complications Intubation complications: none Additional comments: Request for STAT secure airway as a requirement for airlift transport to higher level of care facility d/t sepsis, necrotizing soft tissue infection, alcohol withdrawal. On Precedex and norepinephrine gtt and oxymask for supplemental O2. Informed consent for intubation obtained from pt's . Pre-O2 via ambu with 100% fiO2, 100mg propofol followed by 120mg succinylcholine IV, atraumatic glidescope intubation using Lo Pro 3 blade revealed copious, thick secretions. Grade 1 view of vocal aperture. ETT 7.5 visualized sliding through vocal cords, secured at 23cm at lip line, +etCO2, + bilateral breath sounds via auscultation. Propofol gtt started by RN for sedation. RT managing ventilation settings. Flight crew arrived several minutes after procedure end time to assume care.
--- NOTE | 2024-02-16 11:00 | DI.RAD.S_ITS ---
PROCEDURE: XR CHEST 1V INDICATIONS: pna TECHNIQUE: One view of the chest was acquired. COMPARISON: [facility], CT, CT CHEST ABD PEL WO CON, 02/15/2024, 18:44. [facility], CR, XR CHEST 1V, 02/16/2024, 11:34. [facility], CR, XR CHEST 1V, 02/15/2024, 10:46. [facility], CR, XR CHEST 1V, 02/14/2024, 21:33. FINDINGS: Surgical changes and devices: Right IJ central venous line with the catheter tip at the lower 3rd of the SVC. Lungs and pleura: Suspected opacity at the left lung base is decreased. Question trace pleural effusions. No pneumothorax. Mediastinum: Mediastinal contours appear normal. Heart size is normal. Bones and chest wall: No suspicious bony lesions. Overlying soft tissues appear unremarkable. IMPRESSION: Suspected opacity at the left lung base appears decreased. Question trace pleural effusions. Dictated by: Jax Valdez M.D. on 02/16/2024 at 13:48 Approved by: Jax Valdez M.D. on 02/16/2024 at 13:51
--- NOTE | 2024-02-16 11:09 | PM.CN ---
History of Present Illness Consult details Date Patient Seen: 02/16/24 Time Patient Seen: 09:09 Chief complaint: cold symptoms, + for covid today, high hr, vomit Reason for consult: necrotizing soft tissue infection Requesting provider: Lito Powell Narrative: I was called by Dr. Powell to evaluate the right upper extremity for concerns of necrotizing soft tissue infection. This is a 73-year-old white male who initially had concerns of coronavirus infection, but was tested in the hospital to be negative, who has presented in septic shock requiring pressors. He had a right antecubital access of which there may be concern for infiltration. Not sure which medication infiltrated. They placed a right IJ for access which has been used for the last few days. However, the right aspect of the arm measuring approximately 11 cm in length by 7 cm in width now has a necrotic, edematous patch. Ultrasound performed shows thrombosis of the cephalic vein, but there is still good pulses and no localized fluid collection, just generalized edema. Patient is currently in process of being transferred downtown for tertiary care. Meds Home Medications and Allergies Home Medications Medication Instructions Recorded Confirmed Type amlodipine 5 mg tablet 5 mg PO BID 02/14/24 02/14/24 History atorvastatin 40 mg tablet 40 mg PO DAILY 02/14/24 02/14/24 History betamethasone dipropionate 0.05 % 1 applic topical DAILY 02/14/24 02/14/24 History topical cream dextroamphetamine sulfate 10 mg 10 mg PO BID 02/14/24 02/14/24 History tablet hydrocodone 5 mg-acetaminophen 325 1 tab PO BID PRN Pain (Scale Score 02/14/24 02/14/24 History mg tablet 4-6) lorazepam 0.5 mg tablet 0.5 mg PO PRN PRN Anxiety 02/14/24 02/14/24 History losartan 50 mg tablet 50 mg PO DAILY 02/14/24 02/14/24 History meloxicam 15 mg tablet 15 mg PO DAILY 02/14/24 02/14/24 History sertraline 50 mg tablet 50 mg PO DAILY 02/14/24 02/14/24 History Allergies Allergy/AdvReac Type Severity Reaction Status Date / Time duloxetine AdvReac Mild Night Verified 01/10/24 10:33 sweats, sexual dysfunction tamsulosin AdvReac Mild erectile Verified 01/10/24 10:33 dysfunction Review of Systems Review of Systems ROS: Yes unobtainable due to mental condition Exam Vital Signs (past 8 hours): - 02/16/24 03:15 02/16/24 03:30 02/16/24 03:30 Temperature 98.6 F 98.6 F Pulse Rate 102 H 102 H Respiratory Rate 9 L 10 L Blood Pressure 109/64 Pulse Oximetry 94 94 Oxygen Delivery Method 02/16/24 03:45 02/16/24 04:00 02/16/24 04:00 Temperature 98.6 F 98.6 F Pulse Rate 101 H 101 H Respiratory Rate 9 L 9 L Blood Pressure 106/59 L Pulse Oximetry 94 95 Oxygen Delivery Method 02/16/24 04:15 02/16/24 04:30 02/16/24 04:30 Temperature 98.6 F Pulse Rate 102 H Respiratory Rate 9 L Blood Pressure 121/65 Pulse Oximetry 95 Oxygen Delivery Method Oximask 02/16/24 04:30 02/16/24 04:45 02/16/24 05:00 Temperature 98.6 F 98.4 F Pulse Rate 100 H 104 H Respiratory Rate 10 L 13 Blood Pressure 117/72 Pulse Oximetry 94 96 Oxygen Delivery Method 02/16/24 05:00 02/16/24 05:15 02/16/24 05:30 Temperature 98.4 F 98.6 F 98.6 F Pulse Rate 104 H 101 H 101 H Respiratory Rate 8 L 9 L 9 L Blood Pressure Pulse Oximetry 94 94 94 Oxygen Delivery Method 02/16/24 05:30 02/16/24 05:45 02/16/24 06:00 Temperature 98.6 F Pulse Rate 102 H Respiratory Rate 7 L Blood Pressure 102/62 102/63 Pulse Oximetry 94 Oxygen Delivery Method 02/16/24 06:00 02/16/24 06:15 02/16/24 06:30 Temperature 98.4 F 98.4 F Pulse Rate 101 H 104 H Respiratory Rate 7 L 11 L Blood Pressure 101/69 Pulse Oximetry 95 95 Oxygen Delivery Method 02/16/24 06:30 02/16/24 06:45 02/16/24 07:00 Temperature 98.2 F 98.2 F 98.2 F Pulse Rate 104 H 101 H 105 H Respiratory Rate 8 L 8 L 11 L Blood Pressure Pulse Oximetry 95 95 95 Oxygen Delivery Method 02/16/24 07:00 02/16/24 07:15 02/16/24 07:30 Temperature 98.2 F Pulse Rate 109 H Respiratory Rate 10 L Blood Pressure 141/63 H 153/73 H Pulse Oximetry 93 Oxygen Delivery Method 02/16/24 07:30 02/16/24 07:45 02/16/24 07:52 Temperature 98.2 F 98.2 F Pulse Rate 109 H 109 H 108 H Respiratory Rate 10 L 12 Blood Pressure 153/73 H Pulse Oximetry 95 95 Oxygen Delivery Method 02/16/24 08:00 02/16/24 08:00 02/16/24 08:00 Temperature 98.2 F Pulse Rate 110 H Respiratory Rate 13 Blood Pressure 184/77 H Pulse Oximetry 96 Oxygen Delivery Method Oximask 02/16/24 08:15 02/16/24 08:21 02/16/24 08:21 Temperature 98.4 F 98.4 F Pulse Rate 109 H 108 H Respiratory Rate 11 L 9 L Blood Pressure 121/60 Pulse Oximetry 91 92 Oxygen Delivery Method 02/16/24 08:30 02/16/24 08:30 02/16/24 08:45 Temperature 98.4 F 98.6 F Pulse Rate 101 H 104 H Respiratory Rate 8 L 8 L Blood Pressure 106/52 L Pulse Oximetry 93 95 Oxygen Delivery Method 02/16/24 09:00 02/16/24 09:00 02/16/24 09:15 Temperature 98.4 F 98.2 F Pulse Rate 103 H 105 H Respiratory Rate 9 L 8 L Blood Pressure 105/57 L Pulse Oximetry 95 96 Oxygen Delivery Method 02/16/24 09:28 02/16/24 09:28 02/16/24 09:30 Temperature 98.2 F Pulse Rate 103 H Respiratory Rate 7 L Blood Pressure 116/64 112/59 L Pulse Oximetry 96 Oxygen Delivery Method 02/16/24 09:30 02/16/24 09:45 02/16/24 09:58 Temperature 98.2 F 98.1 F Pulse Rate 102 H 101 H Respiratory Rate 7 L 9 L Blood Pressure 124/59 L Pulse Oximetry 95 96 Oxygen Delivery Method 02/16/24 09:58 02/16/24 10:00 02/16/24 10:00 Temperature 98.1 F 98.1 F Pulse Rate 103 H 103 H Respiratory Rate 11 L 8 L Blood Pressure 110/59 L Pulse Oximetry 96 96 Oxygen Delivery Method 02/16/24 10:04 02/16/24 10:04 02/16/24 10:07 Temperature 98.1 F Pulse Rate 102 H Respiratory Rate 7 L Blood Pressure 110/59 L 103/61 Pulse Oximetry 96 Oxygen Delivery Method 02/16/24 10:07 02/16/24 10:15 Temperature 98.1 F 97.9 F Pulse Rate 102 H 104 H Respiratory Rate 8 L 10 L Blood Pressure Pulse Oximetry 96 96 Oxygen Delivery Method Oxygen Delivery Method Oximask Oxygen Flow Rate 5 Const General: frail appearing and lethargic Nutritional Appearance: edematous Orientation: obtunded HENMT Head: No Roper's sign and No contusion Nose: external nose normal Face and sinus: normal facial exam Mouth: oral mucosae normal Eyes Periorbital: periorbital findings normal Neck Neck: normal visual inspection Chest Chest: No crepitus and other ( Cellulitis extending toward the right aspect of the chest and axilla) Resp Effort & Inspection: normal respiratory effort Cardio Rate: tachycardic GI Palpation: soft, No firm, No guarding and hernia ( small, reducible umbilical hernia) Skin General: No erythema ( erythema of the right arm extending to the right chest wall with edema), induration ( induration in the antecubital, no obvious drainable fluid on ultrasound) and No other ( 11 cm x 7 cm necrotic patch of skin the right posterior aspect of elbow) Neuro General: patient obtunded Extrem General: full ROM ( full passive range of motion) Objective Labs 02/16/24 04:25 02/16/24 04:25 Labs: Laboratory Results - last 24 hr 02/14/24 02/15/24 02/15/24 16:25 17:30 19:30 WBC 30.3 H* RBC 4.55 Hgb 12.7 L Hct 38.5 L MCV 84.6 MCH 27.8 MCHC 32.9 RDW 13.6 Plt Count 193 Neut % (Auto) Lymph % (Auto) Finney % (Auto) Eos % (Auto) Baso % (Auto) Lymph # (Auto) Finney # (Auto) Baso # (Auto) Total Counted Seg Neutrophils % Band Neutrophils % Lymphocytes % (Manual) Monocytes % (Manual) Neutrophils # (Manual) Toxic Vacuolation Platelet Estimate RBC Morphology VBG pH VBG pCO2 VBG pO2 VBG HCO3 VBG Total CO2 VBG O2 Saturation VBG Base Excess Sodium 136 L Potassium 4.9 D Chloride 109 H Carbon Dioxide 17 L BUN 29 H Creatinine 1.30 H Estimated GFR 57 L BUN/Creatinine Ratio 22.3 H Glucose 146 H Lactate 2.3 H 2.2 H Calcium 7.5 L Magnesium 1.3 L Total Bilirubin 0.7 AST 31 ALT 25 Alkaline Phosphatase 82 Troponin I 0.035 H Total Protein 6.0 L Albumin 3.3 L Globulin 2.7 Albumin/Globulin Ratio 1.2 Procalcitonin 27.3 H A.calcoaceticus-baumannii cmplx PCR Not detected Bacteroides fragilis Not detected Kimberly albicans (PCR) Not detected Kimberly auris (PCR) Not detected C. glabrata (PCR) Not detected C. krusei (PCR) Not detected C. parapsilosis (PCR) Not detected C. tropicalis (PCR) Not detected C. difficile Tox (PCR) C. neoform/gattii (PCR) Not detected Enterobacterales (PCR) Not detected E. cloacae complex PCR Not detected Enterococc faecalis PCR Not detected Enterococc faecium PCR Not detected E. coli (PCR) Not detected H. influenzae (PCR) Not detected Klebsiella aerogenes (PCR) Not detected Klebsiella oxytoca PCR Not detected Klebsiella pneumoniae Not detected List. monocytogenes PCR Not detected N. meningitidis (PCR) Not detected Proteus species (PCR) Not detected Salmonella spp. (PCR) Not detected Serratia marcescens PCR Not detected Staphylococcus sp PCR Not detected Staph aureus (PCR) Not detected mecA/C & MREJ Resist Gene Not applicable mecA/C-Methicil Resis Gene Not applicable mcr-1 Colistin Res Gene PCR Not applicable Staph epidermidis (PCR) Not detected Staph lugdunensis PCR Not detected S. maltophilia (PCR) Not detected Streptococcus sp PCR Detected Group A Strep (PCR) Detected Strep agalactiae (PCR) Not detected Strep pneumoniae (PCR) Not detected P. aeruginosa (PCR) Not detected Neil/B-Vanco Res Genes Not applicable blaIMP Car res Gene PCR Not applicable KPC-Carbap Res Gene PCR Not applicable blaNDM Car Res Gene PCR Not applicable OXA-48 Carbapenem Resis Gene (PCR) Not applicable blaVIM Car Res Gene PCR Not applicable CTX-M Gene Resistance (PCR) Not applicable 02/15/24 02/15/24 02/16/24 20:20 22:05 02:05 WBC RBC Hgb Hct MCV MCH MCHC RDW Plt Count Neut % (Auto) Lymph % (Auto) Finney % (Auto) Eos % (Auto) Baso % (Auto) Lymph # (Auto) Finney # (Auto) Baso # (Auto) Total Counted Seg Neutrophils % Band Neutrophils % Lymphocytes % (Manual) Monocytes % (Manual) Neutrophils # (Manual) Toxic Vacuolation Platelet Estimate RBC Morphology VBG pH VBG pCO2 VBG pO2 VBG HCO3 VBG Total CO2 VBG O2 Saturation VBG Base Excess Sodium Potassium Chloride Carbon Dioxide BUN Creatinine Estimated GFR BUN/Creatinine Ratio Glucose Lactate 2.5 H 2.4 H Calcium Magnesium Total Bilirubin AST ALT Alkaline Phosphatase Troponin I 0.033 0.035 H Total Protein Albumin Globulin Albumin/Globulin Ratio Procalcitonin A.calcoaceticus-baumannii cmplx PCR Bacteroides fragilis Kimberly albicans (PCR) Kimberly auris (PCR) C. glabrata (PCR) C. krusei (PCR) C. parapsilosis (PCR) C. tropicalis (PCR) C. difficile Tox (PCR) C. neoform/gattii (PCR) Enterobacterales (PCR) E. cloacae complex PCR Enterococc faecalis PCR Enterococc faecium PCR E. coli (PCR) H. influenzae (PCR) Klebsiella aerogenes (PCR) Klebsiella oxytoca PCR Klebsiella pneumoniae List. monocytogenes PCR N. meningitidis (PCR) Proteus species (PCR) Salmonella spp. (PCR) Serratia marcescens PCR Staphylococcus sp PCR Staph aureus (PCR) mecA/C & MREJ Resist Gene mecA/C-Methicil Resis Gene mcr-1 Colistin Res Gene PCR Staph epidermidis (PCR) Staph lugdunensis PCR S. maltophilia (PCR) Streptococcus sp PCR Group A Strep (PCR) Strep agalactiae (PCR) Strep pneumoniae (PCR) P. aeruginosa (PCR) Neil/B-Vanco Res Genes blaIMP Car res Gene PCR KPC-Carbap Res Gene PCR blaNDM Car Res Gene PCR OXA-48 Carbapenem Resis Gene (PCR) blaVIM Car Res Gene PCR CTX-M Gene Resistance (PCR) 02/16/24 02/16/24 02/16/24 04:25 08:30 10:06 WBC 30.7 H* RBC 4.32 L Hgb 11.9 L Hct 36.4 L MCV 84.2 MCH 27.6 MCHC 32.8 RDW 13.6 Plt Count 186 Neut % (Auto) Not Reportable Lymph % (Auto) Not Reportable Finney % (Auto) Not Reportable Eos % (Auto) Not Reportable Baso % (Auto) Not Reportable Lymph # (Auto) Not Reportable Finney # (Auto) Not Reportable Baso # (Auto) Not Reportable Total Counted 100 Seg Neutrophils % 18.0 L D Band Neutrophils % 67.0 H Lymphocytes % (Manual) 5.0 L Monocytes % (Manual) 10.0 Neutrophils # (Manual) 18764 H Toxic Vacuolation Present H Platelet Estimate Adequate on smear RBC Morphology Normal morphology VBG pH 7.23 L VBG pCO2 41.2 L VBG pO2 50 H VBG HCO3 17 L VBG Total CO2 17 L VBG O2 Saturation 78 H VBG Base Excess -9.8 L Sodium 136 L Potassium 5.3 H Chloride 108 H Carbon Dioxide 15 L BUN 41 H Creatinine 1.96 H Estimated GFR 35 L BUN/Creatinine Ratio 20.9 Glucose 95 Lactate 2.0 Calcium 7.4 L Magnesium 1.9 Total Bilirubin 0.8 AST 25 ALT 22 Alkaline Phosphatase 91 Troponin I 0.037 H Total Protein 5.1 L Albumin 2.8 L Globulin 2.3 Albumin/Globulin Ratio 1.2 Procalcitonin A.calcoaceticus-baumannii cmplx PCR Bacteroides fragilis Kimberly albicans (PCR) Kimberly auris (PCR) C. glabrata (PCR) C. krusei (PCR) C. parapsilosis (PCR) C. tropicalis (PCR) C. difficile Tox (PCR) Negative for c. diff C. neoform/gattii (PCR) Enterobacterales (PCR) E. cloacae complex PCR Enterococc faecalis PCR Enterococc faecium PCR E. coli (PCR) H. influenzae (PCR) Klebsiella aerogenes (PCR) Klebsiella oxytoca PCR Klebsiella pneumoniae List. monocytogenes PCR N. meningitidis (PCR) Proteus species (PCR) Salmonella spp. (PCR) Serratia marcescens PCR Staphylococcus sp PCR Staph aureus (PCR) mecA/C & MREJ Resist Gene mecA/C-Methicil Resis Gene mcr-1 Colistin Res Gene PCR Staph epidermidis (PCR) Staph lugdunensis PCR S. maltophilia (PCR) Streptococcus sp PCR Group A Strep (PCR) Strep agalactiae (PCR) Strep pneumoniae (PCR) P. aeruginosa (PCR) Neil/B-Vanco Res Genes blaIMP Car res Gene PCR KPC-Carbap Res Gene PCR blaNDM Car Res Gene PCR OXA-48 Carbapenem Resis Gene (PCR) blaVIM Car Res Gene PCR CTX-M Gene Resistance (PCR) [facility] Medical History Breast mass, right Gynecomastia Depression, major Rising PSA level BPH w urinary obs/LUTS History of colonic polyps Right cervical radiculopathy Psoriatic arthritis Mixed hyperlipidemia Essential hypertension Attention deficit disorder predominant inattentive type Chronic, continuous use of opioids Primary osteoarthritis involving multiple joints Back pain, chronic Macular pucker, left eye Cataracts, bilateral Post-nasal drip Spondylolisthesis, lumbar region Spinal stenosis, lumbar region without neurogenic claudication Postlaminectomy syndrome, not elsewhere classified History of Mohs micrographic surgery for skin cancer (2019) Psoriasis Postlaminectomy syndrome Spinal stenosis Arthritis Acid reflux Hx of Prinzmetal angina (~1999) Hearing impaired Sciatica Osteoarthritis Hyperlipidemia Surgical History Anesthesia History of eye surgery S/P excision of lipoma (05/2016) Hx of parotidectomy (196) History of back surgery (~2002) Hx of laminectomy (~2008) Hx of tonsillectomy History of surgery (10/2019) History of phacoemulsification of cataract of left eye with intraocular lens implantation Family History Father Cancer Mother Cancer Grandfather Cancer Grandmother Cancer Social History marital status: household members: spouse lives independently: Yes occupational status: previously employed Tobacco & Substance Use Smoking Status: Former smoker alcohol intake: current substance use type: does not use Assessment & Plan Assessment and plan (1) Necrotizing soft tissue infection: Status: Acute Plan: patient is arranging for transport to tertiary care facility. If it is going to take more than a day for the patient to be transferred, debridement and wound VAC placement would be required here. I will continue to follow along and be available for procedure if needed. Discussed with tertiary care facility as well. Time-Based Coding :: [TOTAL MINUTES] spent with patient and on the chart (including review of chart, obtaining history, exam, reviewing outside data, placing orders, documenting exam and treatment plan, and counseling patient) on [DATE].
--- NOTE | 2024-02-16 11:11 | CM.DPNOTE ---
DC Note Patient being air lifted to VM now. JW
--- NOTE | 2024-02-16 11:13 | RT ---
Called to ICU for intubation, pt bagged with 100% fio2 with peep valve of 5 and suction on and functional at [facility].Nurse NA at bedside for intubation, intubated witout incident with 7.5 23 @ teeth and pos. color change. Good bilat breathsounds noted and et tube secured. Abg pending and pt placed on vent by [facility].
--- NOTE | 2024-02-16 11:36 | DI.RAD.S_ITS ---
PROCEDURE: XR CHEST 1V INDICATIONS: increasing airway pressures TECHNIQUE: One view of the chest was acquired. COMPARISON: [facility], CR, XR CHEST 1V, 02/16/2024, 10:43. FINDINGS: Surgical changes and devices: Stable ET tube and right IJ central venous catheter. Lungs and pleura: Stable left basilar opacities. No pleural effusions or pneumothorax. Mediastinum: Mediastinal contours appear normal. Heart is enlarged.. Bones and chest wall: No suspicious bony lesions. Overlying soft tissues appear unremarkable. IMPRESSION: Stable left basilar opacities which could represent atelectasis, aspiration or pneumonia. Dictated by: Phyllis Awad MD, PhD on 02/16/2024 at 12:26 Approved by: Phyllis Awad MD, PhD on 02/16/2024 at 12:27
[2024-02-16] MEDS: ALBUTEROL 2.5 MG/3 ML NEB (ADULT) INH ×2 (11:51→12:00)
--- NOTE | 2024-02-16 12:16 | EKG_ITS ---
[facility] [address] [place] [id number] Test Date: 2024-02-16 Pat Name: Hugo Perkins Department: [facility] Room: 227 Gender: Male Licensed Prosthetist: SREEKANTH : 1950 Requested By: Order Number: [id number] Reading MD: Sudhir Bailey MD Measurements Intervals [place] Rate: 159 P: HI: QRS: -4 QRSD: 142 T: -6 QT: 296 QTc: 481 Interpretive Statements Critical Test Result: High HR Atrial fibrillation with rapid ventricular response Right bundle branch block (old) Electronically Signed On 02-16-2024 16:50:35 PST by Sudhir Bailey MD
[2024-02-16] MEDS: FUROSEMIDE 40 MG/4 ML VIAL IV (12:19)
--- NOTE | 2024-02-16 12:35 | PC.NURSE ---
At approximately 0800, assisted primary RN for this pt with dressing change. This RN noted worsening wound bed (compared to yesterday, 02/15/24) on R upper extremity extended past bicep, up shoulder and eccymosis on right upper trunk. Provider notified, requested to come to bedside. Provider at bedside.
--- NOTE | 2024-02-16 12:46 | PC.NURSE ---
0800 Undressed R arm to apply TNG ointment and noted increased swelling extending up to axilla, elbow wound black in appearance and weeping serosangenous fluid. Another RN called in to verify worsening since yesterday. notified and he came to insect the wound. Orders noted for stat R Arm xray, chest xray and R arm utrasounnd. Preparations underway to Tx pt to [facility].
[2024-02-16 12:49] LABS: Hematocrit 36.7 % (41-53); Hemoglobin 12.1 g/dL (13.5-17.5); Mean Corpuscular Volume 84.9 fL (80-100); Platelet Count 194 X10^3/uL (150-400); Red Blood Cell Count 4.32 X10^6/uL (4.5-5.9); Red Cell Distribution Width 14.1 % (11.6-14.8)
[2024-02-16 13:03] LABS: BUN Creatinine Ratio 18.7 (6-22); Blood Urea Nitrogen 49 mg/dL (9-20); Calcium 7.4 mg/dL (8.4-10.2); Carbon Dioxide 13 mmol/L (22-32); Chloride 107 mmol/L (98-107); Estimated Glomerular Filt Rate 25 mL/min (>60); Glucose 139 mg/dL (80-110); HEMOLYSIS < 15 (0-50); Lactate (Lactic Acid) 2.2 mmol/L (0.7-2.1); Potassium 4.9 mmol/L (3.4-5.1); Sodium 135 mmol/L (137-145)
[2024-02-16 13:05] LABS: Add Manual Diff / Slide Review YES; White Blood Cell Count 37.6 X10^3/uL (4.5-11.0)
[2024-02-16 13:15] LABS: Total Cells Counted 100
[2024-02-16 13:16] LABS: Neutrophils Absolute Manual 29704 /uL (3000-5900); Troponin I 0.021 ng/mL (0.01-0.034)
[2024-02-16 13:18] LABS: Toxic Granulation Present; Toxic Vacuolation Present
--- NOTE | 2024-02-16 13:20 | PC.NURSE ---
Shift Note - Pt Intubated @ 10:41 per anesthesia for airway protection during transport to [facility]. Arm restraints applied, attempted to place oral gastric tube unsuccessfully. [facility] personnel here to transport pt, connected to their monitor and vent, report given to RN transporting pt. - Pt discharged with [facility] team at 1301.
[2024-02-16 13:23] LABS: RBC Morphology Normal Morphology
[2024-02-16 14:17] LABS: Reflexed Lactate in 2 Hours Y
[2024-02-19 15:12] LABS: Base Excess ABG -11.1 mmol/L (-2-3); Blood Gas Mode Assist Cont Ventilat; Delivery System Adult Ventilator; HCO3 ABG 15 mmol/L (23-27); Oxygen Saturation ABG 94 % (95-100); PCO2 ABG 32.1 mmHg (35-45); PEEP 5; PO2 ABG 79 mmHg (80-100); Respiratory Rate 16; TCO2 ABG 14 mmol/L (23-27); pH ABG 7.27 (7.35-7.45)
== END 2024-02-16 13:03 | disposition short-term general hospital (02) | DRG 871 ==
LOC: ED 16:53 → AC 17:30 → ICU 17:33
PROVIDERS: Internal Medicine Pulmonary Disease; Admitting Provider Hospitalist; Emergency Provider Emergency Medicine; PCP Internal Medicine; Referring Provider Emergency Medicine; Visit Provider Hospitalist
DX: A41.9 Sepsis, unspecified organism (principal); G93.41 Metabolic encephalopathy; J96.01 Acute respiratory failure with hypoxia; R65.21 Severe sepsis with septic shock; M72.6 Necrotizing fasciitis; N17.0 Acute kidney failure with tubular necrosis; J15.9 Unspecified bacterial pneumonia; F10.939 Alcohol use, unspecified with withdrawal, unspecified; F11.20 Opioid dependence, uncomplicated; E87.1 Hypo-osmolality and hyponatremia; I82.611 Acute embolism and thrombosis of superficial veins of right upper extremity; J81.1 Chronic pulmonary edema; I42.7 Cardiomyopathy due to drug and external agent; E86.9 Volume depletion, unspecified; T80.89XA Other complications following infusion, transfusion and therapeutic injection, initial encounter; B95.0 Streptococcus, group A, as the cause of diseases classified elsewhere; S50.311A Abrasion of right elbow, initial encounter; W18.30XA Fall on same level, unspecified, initial encounter; Y84.8 Other medical procedures as the cause of abnormal reaction of the patient, or of later complication, without mention of misadventure at the time of the procedure; Y90.9 Presence of alcohol in blood, level not specified; Y71.1 Therapeutic (nonsurgical) and rehabilitative cardiovascular devices associated with adverse incidents; Y92.239 Unspecified place in hospital as the place of occurrence of the external cause; I25.2 Old myocardial infarction; Z87.891 Personal history of nicotine dependence
CPT/HCPCS: 36415; 36600; 71045; 71250; 73070; 74176; 80048; 80053; 80305; 81001; 82140; 82550; 82805; 82962; 83605; 83690; 83735; 84145; 84484; 85007; 85025; 85027; 85379; 87040; 87077; 87147; 87154; 87186; 87493; 87633; 87797; 93005; 93010; 93306; 93971; 94640; 94762; 94799; 96365; 96367; 96375; 99232; 99285; 99291; J0134; J0330; J0692; J0696; J1100; J1171; J1630; J1642; J1650; J1940; J2020; J2060; J2543; J2560; J2704; J3475; J3490; J7613; P9041

== ENCOUNTER → 2024-04-03 15:34 | Outpatient (ROUT) | payer MEDICARE, OTHER, SELFPAY ==
[2024-02-14 20:19] VITALS: BMI 26.3
[2024-02-16 10:35] VITALS: PULSE 117; RESP 18; O2SAT 5
== END ==
PROVIDERS: PCP Internal Medicine; Visit Provider Hospitalist
DX: Z48.817 Encounter for surgical aftercare following surgery on the skin and subcutaneous tissue (principal)
CPT/HCPCS: 87070; 87077; 87147; 87205

== ENCOUNTER → 2024-05-10 13:45 | Outpatient (CLI) | payer MEDICARE, OTHER, SELFPAY ==
[2024-04-05 13:29] VITALS: PULSE 117; RESP 18; O2SAT 5; BMI 26.3
[2024-05-10 14:26] LABS: Hematocrit 33.2 % (41-53); Hemoglobin 10.7 g/dL (13.5-17.5); Mean Corpuscular HGB Conc 32.1 % (30-36); Mean Corpuscular Hemoglobin 25.4 PG (26-34); Mean Corpuscular Volume 79.1 fL (80-100); Platelet Count 280 X10^3/uL (150-400); White Blood Cell Count 7.4 X10^3/uL (4.5-11.0)
[2024-05-10 14:41] LABS: Alanine Aminotransferase 22 IU/L (<50); Albumin 4.2 g/dL (3.5-5.0); Albumin Globulin Ratio 1.4 (1.0-2.8); Alkaline Phosphatase 68 U/L (38-126); Aspartate Aminotransferase 31 IU/L (17-59); BUN Creatinine Ratio 15.5 (6-22); Bilirubin Total 0.6 mg/dL (0.2-1.3); Blood Urea Nitrogen 16 mg/dL (9-20); Calcium 9.5 mg/dL (8.4-10.2); Carbon Dioxide 26 mmol/L (22-32); Chloride 106 mmol/L (98-107); Estimated Glomerular Filt Rate > 60 mL/min (>60); Glucose 104 mg/dL (80-110); HEMOLYSIS < 15 (0-50); Potassium 4.3 mmol/L (3.4-5.1); Sodium 139 mmol/L (137-145); Total Protein 7.2 g/dL (6.3-8.2)
[2024-05-10 15:11] LABS: TSH w/ Reflex to FT4 3.07 uIU/mL (0.47-4.68)
== END ==
PROVIDERS: PCP Internal Medicine; Referring Provider Physician Assistant; Visit Provider Physician Assistant
DX: L40.0 Psoriasis vulgaris (principal); I10 Essential (primary) hypertension; E78.2 Mixed hyperlipidemia; L40.50 Arthropathic psoriasis, unspecified
CPT/HCPCS: 36415; 80053; 84443; 85027; 86480

== ENCOUNTER → 2024-07-16 12:02 | Outpatient (CLI) | payer MEDICARE, OTHER, SELFPAY ==
[2024-04-05 13:29] VITALS: PULSE 117; RESP 18; O2SAT 5; BMI 26.3
[2024-07-16 12:49] LABS: Hematocrit 42.6 % (41-53); Hemoglobin 14.1 g/dL (13.5-17.5); Mean Corpuscular Hemoglobin 25.4 PG (26-34); Mean Corpuscular Volume 76.8 fL (80-100); Platelet Count 183 X10^3/uL (150-400); Red Blood Cell Count 5.55 X10^6/uL (4.5-5.9); Red Cell Distribution Width 19.3 % (11.6-14.8); White Blood Cell Count 6.2 X10^3/uL (4.5-11.0)
[2024-07-16 13:35] LABS: Aspartate Aminotransferase 31 IU/L (17-59); BUN Creatinine Ratio 23.3 (6-22); Blood Urea Nitrogen 24 mg/dL (9-20); Calcium 9.4 mg/dL (8.4-10.2); Carbon Dioxide 26 mmol/L (22-32); Chloride 104 mmol/L (98-107); Cholesterol 175 mg/dL (140-199); Estimated Glomerular Filt Rate > 60 mL/min (>60); Glucose 86 mg/dL (80-110); HDL Cholesterol 68 mg/dL (40-60); HEMOLYSIS < 15 (0-50); LDL Cholesterol Calculated 87 mg/dL (<100); Potassium 4.9 mmol/L (3.4-5.1); Sodium 138 mmol/L (137-145); Triglycerides 102 mg/dL (35-150)
[2024-07-16 14:09] LABS: Prostate Specific Antigen 1.53 ng/mL (0.10-4.00)
== END ==
LOC: LAB 12:05
PROVIDERS: PCP Internal Medicine; Referring Provider Internal Medicine; Visit Provider Internal Medicine
DX: N13.8 Other obstructive and reflux uropathy (principal); E78.2 Mixed hyperlipidemia; N40.1 Benign prostatic hyperplasia with lower urinary tract symptoms; I10 Essential (primary) hypertension
CPT/HCPCS: 36415; 80048; 80061; 84153; 84450; 85027

== ENCOUNTER → 2024-08-21 12:03 | Outpatient (CLI) | payer MEDICARE, OTHER, SELFPAY ==
[2024-04-05 13:29] VITALS: PULSE 117; RESP 18; O2SAT 5; BMI 26.3
--- NOTE | 2024-08-21 12:06 | DI.RAD.S_ITS ---
PROCEDURE: XR LUMBAR SPINE MIN 4V INDICATIONS: BACK PAIN TECHNIQUE: 5 views of the lumbar spine were acquired, including bilateral oblique views. COMPARISON: [facility], CR, XR LUMBAR SPINE 2-3V, 04/22/2020, 9:28. FINDINGS: Bones: 5 nonrib-bearing vertebrae are present. There is prior posterior fusion of lumbar spine at L3 through S1 levels. No gross hardware loosening or failure. There is normal bony alignment. No acute vertebral body compression fractures. Degenerative endplate changes and loss of disc height throughout lower thoracic and lumbar spine. No suspicious bony lesions. Soft tissues: Overlying bowel gas pattern is normal. No suspicious soft tissue calcifications. Oblique images: No pars defects. Suggestion of bilateral bony foraminal stenosis at L4-5 and L5-S1 levels are seen. IMPRESSION: Post fusion changes at L3 through S1 levels. No gross hardware loosening or failure. No acute fracture or dislocation. Degenerative disc disease throughout lumbar spine. Suggestion of bilateral bony foraminal stenosis at L4-5 and L5-S1 levels seen on oblique views. Dictated by: Juan Venegas M.D. on 08/21/2024 at 12:49 Approved by: Juan Venegas M.D. on 08/21/2024 at 13:00
== END ==
PROVIDERS: PCP Internal Medicine; Referring Provider Physical Medicine & Rehabilitation; Visit Provider Physical Medicine & Rehabilitation
DX: M54.9 Dorsalgia, unspecified (principal); G89.29 Other chronic pain; Z98.1 Arthrodesis status; M51.369 Other intervertebral disc degeneration, lumbar region without mention of lumbar back pain or lower extremity pain; M54.12 Radiculopathy, cervical region; F32.0 Major depressive disorder, single episode, mild; F11.90 Opioid use, unspecified, uncomplicated; F98.8 Other specified behavioral and emotional disorders with onset usually occurring in childhood and adolescence; M15.9 Polyosteoarthritis, unspecified; Z68.25 Body mass index [BMI] 25.0-25.9, adult
CPT/HCPCS: 72110; 99214

== ENCOUNTER 2024-08-27 14:04 | Outpatient (CLI) | payer MEDICARE, OTHER, SELFPAY ==
[2024-08-22 11:22] VITALS: PULSE 117; RESP 18; O2SAT 5; BMI 26.3
[2024-08-27] VITALS (7 sets, daily range): BP systolic 141–172; BP diastolic 71–85; PULSE 64–75; RESP 16; TEMP 35.9; O2SAT 93–98
[2024-08-27] MEDS: MIDAZOLAM 2 MG/2 ML VIAL IV (15:38)
[2024-08-27] MEDS: DEXAMETHASONE 10 MG/ML VIAL INJ (15:46)
[2024-08-27] MEDS: BUPIVACAINE 0.25% (PF) VIAL 2 ML INJ (15:47)
[2024-08-27] MEDS: iopamidoL 15 ML VIAL 3 ML INJ (15:47)
[2024-08-27] MEDS: BETAMETHASONE 30 MG/5 ML MDV 12 MG INJ (15:47)
--- NOTE | 2024-08-27 16:02 | P.PCN_ITS ---
Date/Time/Diagnoses Date of procedure: 08/27/24 Time of procedure: 16:02 Pre-procedure diagnosis: 1. HNP WITH RADICULAR FEATURES, 2. MULTILEVEL CENTRAL STENOSIS, Post-procedure diagnosis: same Procedure Notes Procedure: 1. FLUOROSCOPICALLY GUIDED CONTRAST CONTROLLED INTERLAMINAR EPIDURAL STEROID INJECTION - L5/S1 Indications: Hugo is referred by Dr. Powell for treatment of Bilateral Foraminal Stenosis L>R LE symptoms. Physician: Adilson Barcenas Total Fluoroscopy time (seconds): 7 Total sedation minutes: 17 Complications: none Procedure in detail & Post-procedure care: FINDINGS Multilevel Central Spinal Stenosis with Nerve Root Compression DESCRIPTION OF PROCEDURE Fluoroscopically guided, contrast-controlled L5/S1 translaminar epidural steroid injection. Following review of allergy and review of potential side effects and complications, including, but not necessarily limited to, infection, allergic reaction, local tissue breakdown, temporary as well as permanent nerve injury, paralysis, stroke and possible , the patient indicated that the patient understood and agreed to proceed. An informed consent document was signed by the patient, witnessed by a nurse, and placed in the patient's chart. Additionally, other treatment options including modalities, medications, and physical therapy were reviewed with the patient. After review of previous anaesthesic history and IV conscious sedation the patient was deemed safe to proceed with today?s procedure with IV conscious sedation as ASA class II designation. Safety time-out was performed to confirm patient ID, procedure to be performed and site of procedure. IV sedation was accomplished with a combination of 2mg of Versed administered by the RN after DO order, titrated to patient comfort during the course of the procedure while the patient remained responsive to all verbal commands. In the prone position, following sterile prep and drape of the lumbar region, the L5/S1 translaminar space was identified fluoroscopically. The skin was anesthetized via a 25-gauge, 1.5-inch needle with 1% lidocaine solution. At this point, a 22-gauge short bevel spinal needle was atraumatically introduced a nd advanced under fluoroscopic guidance into the region of the L5/S1 translaminar space. Depth was confirmed on lateral view. Radiological data, including multiple fluoroscopic views of the lumbar spine, reveal a spinal needle at the L5/S1 translaminar space. Lateral views then show placement of the needle in the epidural space. Subsequent views show contrast material flowing superiorly and inferiorly in the epidural space. No vascular or intrathecal uptake is observed. At this point, using loss of resistance technique with saline and air, the epidural space was entered. This was confirmed following negative aspiration with injection of approximately 1.5cc of Isovue 200, showing excellent epidural flow without vascular or intrathecal uptake. At this point, 1 cc of 1% lidocaine solution combined with 3cc or 10mg of dexamethasone and 12mg of betamethasone was injected without incident. The patent tolerated the procedure without signs of symptoms of complications prior to transfer to the recovery area for further monitoring. The patient was then transferred to the recovery area where they were observed for an appropriate period of time after the injection. The patient reported a VAS score of 8 prior to the procedure and a post-procedure VAS of 1. POST OP INSTRUCTIONS The patient was provided a Pain Log to continue to record their response to the target-specific procedure prior to follow-up visit with their referring physician. Additionally, specific post-injection care instructions and a contact number to our office were provided if concerns arise regarding possible complications associated with the procedure are suspected.
== END 2024-08-27 16:14 | disposition home or self-care (01) ==
LOC: RAD 14:05
PROVIDERS: PCP Internal Medicine; Referring Provider Physical Medicine & Rehabilitation; Visit Provider Physical Medicine & Rehabilitation
DX: M48.062 Spinal stenosis, lumbar region with neurogenic claudication (principal); M51.17 Intervertebral disc disorders with radiculopathy, lumbosacral region; Z98.1 Arthrodesis status
CPT/HCPCS: 62323; 99152; J0702; J1100; J2250; J3490

== ENCOUNTER → 2024-10-08 09:48 | Outpatient (CLI) | payer MEDICARE, OTHER, SELFPAY ==
[2024-08-22 11:22] VITALS: PULSE 117; RESP 18; O2SAT 5; BMI 26.3
--- NOTE | 2024-10-08 09:50 | DI.CT.S_ITS ---
PROCEDURE: CT UE LT WO CON INDICATIONS: ARTHREX TECHNIQUE: Noncontrast 0.75 mm thick sections acquired from the acromioclavicular joint to the inferior scapula, with coronal and sagittal reformatting. COMPARISON: [facility], CT, CT CHEST ABD PEL WO CON, 02/15/2024, 18:44. FINDINGS: Image quality: Excellent. Bones: Moderate degenerative changes of the acromioclavicular joint. Severe degenerative changes of the glenohumeral joint. No glenoid retroversion. Chondrocalcinosis of the glenohumeral joint, presenting CPPD arthropathy. No acute fracture or dislocation of the left shoulder. Visualized left ribs is unremarkable. Soft tissues: Large subcoracoid bursitis. Moderate tenosynovitis of the extra- articular biceps tendon. 1.2 cm ground-glass pulmonary nodule in the left upper lobe (06:11). Severe LAD coronary artery calcification. No significant fatty atrophy of the rotator cuff musculature. IMPRESSION: 1. Degenerative changes as described above. 2. 1.2 cm ground-glass pulmonary nodule in the left upper lobe, recommend CT chest follow-up at 6-12 months. Dictated by: Claritza uBrton M.D. on 10/08/2024 at 12:24 Approved by: Claritza Burton M.D. on 10/08/2024 at 12:30
--- NOTE | 2024-10-08 09:53 | DI.CT.S_ITS ---
PROCEDURE: CT UE RT WO CON INDICATIONS: ARTHREX TECHNIQUE: Noncontrast 0.75 mm thick sections acquired from the acromioclavicular joint to the inferior scapula, with coronal and sagittal reformatting. COMPARISON: None. FINDINGS: Image quality: Excellent. Bones: Moderate degenerative changes of the acromioclavicular joint. Mild degenerative changes of the glenohumeral joint. Chondrocalcinosis of the glenohumeral articulation, representing CPPD arthropathy. 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 No glenoid retroversion. No acute fracture or dislocation. Visualized right ribs are unremarkable. Soft tissues: No significant glenohumeral effusion. Scarring in the right upper lobe. Moderate calcification of the ascending aorta, partially visualized. No significant fatty atrophy of the rotator cuff musculature. IMPRESSION: Degenerative changes, CPPD arthropathy, and hydroxyapatite deposition disease as described above. Dictated by: Claritza Burton M.D. on 10/08/2024 at 12:31 Approved by: Claritza Burton M.D. on 10/08/2024 at 12:36
== END ==
PROVIDERS: PCP Internal Medicine; Referring Provider Orthopaedic Surgery; Visit Provider Orthopaedic Surgery
DX: M19.011 Primary osteoarthritis, right shoulder (principal); M19.012 Primary osteoarthritis, left shoulder; M11.212 Other chondrocalcinosis, left shoulder; M11.211 Other chondrocalcinosis, right shoulder; M75.31 Calcific tendinitis of right shoulder; M75.52 Bursitis of left shoulder; M65.812 Other synovitis and tenosynovitis, left shoulder; R91.1 Solitary pulmonary nodule; I25.10 Atherosclerotic heart disease of native coronary artery without angina pectoris; I70.0 Atherosclerosis of aorta
CPT/HCPCS: 73200

== ENCOUNTER → 2024-10-31 11:56 | Outpatient (CLI) | payer MEDICARE, OTHER, SELFPAY ==
[2024-08-22 11:22] VITALS: PULSE 117; RESP 18; O2SAT 5; BMI 26.3
[2024-10-31 12:34] LABS: Add Manual Diff / Slide Review NO; Hematocrit 43.0 % (41-53); Hemoglobin 14.5 g/dL (13.5-17.5); Lymphocytes Absolute Auto 1600 /uL (1100-4500); Mean Corpuscular HGB Conc 33.7 % (30-36); Mean Corpuscular Hemoglobin 28.0 PG (26-34); Mean Corpuscular Volume 83.1 fL (80-100); Platelet Count 181 X10^3/uL (150-400)
[2024-10-31 12:59] LABS: Alanine Aminotransferase 28 IU/L (<50); Albumin 4.5 g/dL (3.5-5.0); Albumin Globulin Ratio 1.7 (1.0-2.8); Alkaline Phosphatase 61 U/L (38-126); Blood Urea Nitrogen 23 mg/dL (9-20); Calcium 9.5 mg/dL (8.4-10.2); Carbon Dioxide 24 mmol/L (22-32); Chloride 105 mmol/L (98-107); Estimated Glomerular Filt Rate > 60 mL/min (>60); Globulin 2.7 g/dL (1.7-4.1); Glucose 93 mg/dL (70-99); Potassium 4.6 mmol/L (3.4-5.1); Sodium 138 mmol/L (137-145); Total Protein 7.2 g/dL (6.3-8.2)
[2024-10-31 13:06] LABS: HEMOLYSIS 76 (0-50)
[2024-11-04 09:36] LABS: QuantiFERON Mitogen Value >10.00 IU/mL (.); QuantiFERON Nil Value 0.06 IU/mL (.); QuantiFERON TB Gold Plus Negative (Negative); QuantiFERON TB1 Ag Value 0.08 IU/mL (.); QuantiFERON TB2 Ag Value 0.07 IU/mL (.)
== END ==
PROVIDERS: PCP Internal Medicine; Referring Provider Physician Assistant; Visit Provider Physician Assistant
DX: L40.0 Psoriasis vulgaris (principal)
CPT/HCPCS: 36415; 80053; 85025; 86480